=== PATIENT | female | born 1965 | race Caucasian/White ===

== ENCOUNTER → 2023-02-17 11:37 | Outpatient (CLI) | payer MEDICAID, SELFPAY ==
[2023-02-17 18:47] LABS: Basophils # 0.1 K/mm3 (0-0.2); Basophils % 1.1 % (0.1-2.0); Eosinophils # 0.2 K/mm3 (0.0-0.4); Hematocrit 53.1 % (37.0-47.0); Hemoglobin 16.6 g/dL (12.2-16.2); Lymphocytes # 2.2 K/mm3 (0.7-4.5); Lymphocytes % 29.2 % (10-50); Mean Corpuscular HGB Conc 31.2 g/dL (31.8-35.4); Mean Corpuscular Hemoglobin 29.1 pg (27.0-31.2); Mean Corpuscular Volume 93.3 fl (81-99); Mean Platelet Volume 8.7 fl (7.4-10.4); Monocytes # 0.4 K/mm3 (0.1-1.0); Monocytes % 5.2 % (1.7-9.3); Neutrophils # 4.7 K/mm3 (1.8-7.8); Neutrophils % 62.4 % (37.0-80.0); Platelet Count 249 K/mm3 (142-424); Red Blood Count 5.69 M/mm3 (4.20-5.40); Red Cell Distribution Width 13.6 % (11.5-17.5); White Blood Count 7.6 K/mm3 (4.8-10.8)
[2023-02-17 19:07] LABS: Alanine Aminotransferase 23 U/L (12-78); Albumin Level 4.3 g/dl (3.5-5.0); Albumin/Globulin Ratio 1.5 (1.1-1.8); Alkaline Phosphatase 91 U/L (38-126); Aspartate Amino Transferase 35 U/L (14-36); Bilirubin,Total 0.6 mg/dl (0.2-1.3); Blood Urea Nitrogen 4 mg/dl (7-17); Calcium 9.1 mg/dl (8.4-10.2); Carbon Dioxide 31 mmol/L (22.0-30.0); Chloride 99 mmol/L (98-107); Chol/HDL Ratio 3.2 (1-3.5); Cholesterol 218 mg/dl (140-200); Estimated Glomerular Filt Rate 127 ml/min (>60); GFR (African American) 154 ML/MIN (>60); Globulin 2.8 g/dL (1.3-3.2); Glucose 87 mg/dl (74-100); HDL Cholesterol 69 mg/dl (40-60); Sodium 139 mmol/L (136-145); Total Protein,Serum 7.1 g/dl (6.3-8.2); Triglycerides 193 mg/dl (30-150); VLDL Cholesterol 39 mg/dL (0-40)
[2023-02-17 19:18] LABS: Hemoglobin A1C 5.5 % (4.0-6.0)
[2023-02-17 19:19] LABS: Direct LDL Cholesterol 112.36 mg/dL (100-129)
[2023-02-17 19:38] LABS: Thyroid Stimulating Hormone 1.51 uIU/mL (0.465-4.68)
== END ==
PROVIDERS: PCP Nurse Practitioner; Visit Provider Nurse Practitioner
DX: R07.9 Chest pain, unspecified (principal); R55 Syncope and collapse; R00.2 Palpitations; I34.1 Nonrheumatic mitral (valve) prolapse; Z13.1 Encounter for screening for diabetes mellitus; Z13.220 Encounter for screening for lipoid disorders; Z79.899 Other long term (current) drug therapy
CPT/HCPCS: 80053; 80061; 83036; 84443; 85025

== ENCOUNTER → 2023-02-24 09:57 | Outpatient (CLI) | payer MEDICAID, SELFPAY ==
--- NOTE | 2023-02-24 10:03 | XR_ITS ---
FINAL REPORT CLINICAL HISTORY: left sided chest pain, palpitation, pre-syncope, MVP, soa FINDINGS: TWO VIEW CHEST The heart size is normal. The mediastinum is normal. The lungs are clear. There is no pneumothorax. IMPRESSION: No acute cardiopulmonary process. Reviewed, Interpreted and Dictated by Alexander Catherine MD Transcribed by Anselmo Herring Authenticated and [facility]
--- NOTE | 2023-02-24 10:31 | ECG_ITS ---
APPROVED REPORT Exam: Resting ECG HR:79 bpm ECG Measurements Heart Rate 79 AXES AL 132 P 70 QRSd 110 QRS 17 QT 394 T 61 QTc 428 Conclusion SINUS RHYTHM INCOMPLETE RIGHT BUNDLE BRANCH BLOCK [90+ ms QRS DURATION, TERMINAL R IN V1/V2, 40+ ms S IN I/aVL/V4/V5/V6] BORDERLINE ECG UNCONFIRMED REPORT Electronically signed by : Rajinder Amor MD 02/24/2023 20:06:56
== END ==
PROVIDERS: PCP Nurse Practitioner; Visit Provider Nurse Practitioner
DX: R07.9 Chest pain, unspecified (principal); R00.2 Palpitations; R55 Syncope and collapse; I34.1 Nonrheumatic mitral (valve) prolapse
CPT/HCPCS: 71046; 93005; 93225; 93226

== ENCOUNTER → 2023-03-15 07:19 | Outpatient (CLI) | payer MEDICAID, SELFPAY ==
--- NOTE | 2023-03-15 | CA_ITS ---
APPROVED REPORT Exam: Pharmacologic Technologist: Chely Gr, Ht: 5 ft 3 in Wt: 150 lbs BSA: 1.71 m2 HR: 89 bpm BP: 134/85 mmHg Rhythm: NSR Medical History Medical History: Smoking Medications: Omeprazole,,,,, Albuterol,,,,, Prednisone,,,,, Levoflaxacin,,,,, BREztri aeroshpere,,,,, Allergies: No known drug allergies Cardiac Risk Factors: FHX of CAD, Smoking Stress Test Details Test: LEXISCAN HR Resting HR: 87 bpm Max Heart Rate (APMHR): 163 bpm Max HR Achieved: 111 bpm Target HR (85% APMHR): 139 bpm % of APMHR: 68 Recovery HR: 91 bpm BP Resting BP: 134/85 mmHg Max BP: 134/85 mmHg Recovery BP: 110.0/76.0 mmHg ECG Resting ECG: NSR, minimal ST depression in inferior leads, non-specific T-wave changes in inferior leads Stress ECG: No change Arrhythmia: Occasional PVCs Recovery ECG: No change Recovery Arrhythmia: None Clinical Exercise duration: 04:01 min Highest Stage Achieved: Exercise capacity: 1.0 METs Stress ECG Conclusion PT HAD DYSPNEA PVCS NO SIGNIFICANT ST CHANGES WITH STRESS CONCLUSION NON DIAGNOSTIC ECG STRESS TEST DUE TO BASELINE ABNORMALITIES MYOVIEW IMAGING IS REPORTED SEPARATELY Test Summary REST 02:15 . . 87 . 134/ 85 . . Stage 1 . . . . . . . Myoview Injected Stage 1 01:00 . . 106 . . . . Stage 2 01:00 . . 107 . . . . Stage 3 01:00 . . 100 . 128/ 74 . . Stage 4 01:00 . . 93 . 112/ 86 . . Stage 4 01:01 . . 93 . 112/ 86 . Stop exercise at 04:01 RECOVERY 01:00 . . 95 . . . . RECOVERY 02:00 . . 93 . . . . RECOVERY 03:00 . . 93 . . . . RECOVERY 04:00 . . 93 . 125/ 82 . . RECOVERY 05:00 . . 90 . 125/ 82 . . RECOVERY 05:12 . . 92 . 110/ 76 . . Electronically signed by : Candi Gallagher, 03/19/2023 15:39:30
--- NOTE | 2023-03-15 07:19 | NM_ITS ---
APPROVED REPORT Exam: Nuclear Stress Test Indication: VALVULAR DISEASE, TOB USE, FM HX, C.P., SOB, PALPITATIONS, SYNCOPE, FATIGUE, ABN ECHO Patient Location: Outpatient Stress Tech: Chely Gr MI Tech:Tracy Banksser, ARRT RT (R)(N)(M) Ht: 5 ft 4 in Wt: 150 lbs Bra Size: C HR: 89 bpm BP: 134/85 mmHg BSA: 1.73 m2 Rhythm: NSR TID: 1.12 BMI: 25.7 History: VALVULAR DISEASE, TOB USE, FM HX, C.P., SOB, PALPITATIONS, SYNCOPE, FATIGUE, ABN ECHO Procedure: Patient received 0.4 mg of intravenous Lexiscan, resting heart rate 89 bpm, resting blood pressure 134/85 mmHg, with Lexiscan maximum heart rate achieved was 105 bpm which is % of the maximum predicted heart rate and blood pressure was 128/74 mmHg. With Lexiscan, patient denied any complaint of chest pain. Cardiac Stress and Resting SPECT Images: Cardiac Stress and Resting SPECT images were obtained using technetium 99m Myoview 31.3 mCi stress and 10.33 mCi at rest. Resting and stress imaging in supine and prone positions demonstrate no fixed or reversible perfusion defects. Gated imaging demonstrates normal global and regional LV systolic function. LVEF is calculated at 60%. Conclusion: No fixed or reversible perfusion defects. Gated imaging demonstrates normal global and regional LV systolic function. LVEF is calculated at 60%. Electronically signed by : Candi Gallagher, 03/19/2023 15:41:49
== END ==
PROVIDERS: PCP Nurse Practitioner; Visit Provider Nurse Practitioner
DX: I34.1 Nonrheumatic mitral (valve) prolapse (principal); R07.9 Chest pain, unspecified; R00.2 Palpitations; R55 Syncope and collapse
CPT/HCPCS: 78452; 93017; A9502; J2785

== ENCOUNTER → 2023-03-22 14:43 | Outpatient (CLI) | payer MEDICAID, SELFPAY | PROVIDERS: PCP Nurse Practitioner; Visit Provider Nurse Practitioner | DX: R42 Dizziness and giddiness (principal) ==

== ENCOUNTER 2023-03-22 18:36 | Inpatient (IN) | payer MEDICAID, SELFPAY ==
[2023-03-22] VITALS (14 sets, daily range): BP systolic 100–136; BP diastolic 63–83; PULSE 84–111; RESP 16–22; TEMP 36.7–37.1; O2SAT 84–99; BMI 25.7; BMI 25.6; BMI 26.9
--- NOTE | 2023-03-22 18:24 | ECG_ITS ---
APPROVED REPORT Exam: Resting ECG HR:97 bpm ECG Measurements Heart Rate 97 AXES OK 128 P 41 QRSd 109 QRS 12 QT 372 T 47 QTc 427 Conclusion SINUS RHYTHM POSSIBLE RIGHT VENTRICULAR CONDUCTION DELAY [RSR (QR) IN V1/V2] BORDERLINE ECG UNCONFIRMED REPORT Electronically signed by : Rajinder Amor MD 03/23/2023 21:18:42
--- NOTE | 2023-03-22 18:33 | PC.NURSE ---
ER AT BEDSIDE
--- NOTE | 2023-03-22 18:35 | XR_ITS ---
PROCEDURE INFORMATION: Exam: XR Chest Exam date and time: 03/22/2023 6:36 PM Age: 57 years old Clinical indication: Shortness of breath; Additional info: SOB TECHNIQUE: Imaging protocol: Radiologic exam of the chest. Views: 1 view. COMPARISON: CR XR CHEST 2V 02/24/2023 10:04 AM FINDINGS: Lungs: Subtle interstitial haziness could reflect interstitial pneumonia. No consolidation. Granulomatous changes. Pleural spaces: Unremarkable. No pleural effusion. No pneumothorax. Heart/Mediastinum: Unremarkable. No cardiomegaly. Bones/joints: Unremarkable. IMPRESSION: Subtle interstitial haziness could reflect interstitial pneumonia. Correlate clinically.
--- NOTE | 2023-03-22 18:37 | PC.NURSE ---
PT PLACED ON 3 L NC, FOR ROOM AIR SAT OF 84, AWARE
--- NOTE | 2023-03-22 18:38 | PC.NURSE ---
respiratory notified about continuous albuterol.
--- NOTE | 2023-03-22 18:40 | HMH.EDGENADL ---
Discharge Plan Disposition Patient Disposition: Admitted Condition: Serious Chief Complaint: Shortness of Breath/Dyspnea Prescriptions Prescriptions: No Action omeprazole 40 mg capsule,delayed release(DR/EC) 40 mg PO DAILY Qty: 30 2RF sulfamethoxazole-trimethoprim [Bactrim DS] 800-160 mg tablet 1 tab PO BID Qty: 20 0RF (DME) nebulizers Misc See Rx Instructions .MEDSUPPLY Qty: 1 0RF Rx Instructions: As directed (DME) nebulizer accessories Kit See Rx Instructions .MEDSUPPLY Qty: 1 0RF Rx Instructions: As directed ipratropium-albuterol 0.5 mg-3 mg(2.5 mg base)/3 mL solution for nebulization 3 ml inhalation QID Qty: 360 2RF Trelegy Ellipta 100-62.5-25 mcg blister with device 1 inh inhalation DAILY Qty: 60 2RF albuterol sulfate [Ventolin HFA] 90 mcg/actuation HFA aerosol inhaler See Rx Instructions .ROUTE .COMPLEX Qty: 18 0RF Dose Instruction: INHALE 2 PUFFS INTO THE LUNGS EVERY 4-6 HOURS NEEDED FOR SHORTNESS OF BREATH OR WHEEZING Rx Instructions: INHALE 2 PUFFS INTO THE LUNGS EVERY 4-6 HOURS NEEDED FOR SHORTNESS OF BREATH OR WHEEZING Clinical Impressions Clinical Impression: Asthma exacerbation in COPD, ACS (acute coronary syndrome) Discharge ED Provider: Jhonathan Crsos General Adult HPI General Chief complaint: Shortness of Breath/Dyspnea Stated complaint: SOA Time Seen by Provider: 03/22/23 18:40 History of Present Illness HPI narrative: Patient is a 57-year-old female with past medical history of COPD on controlled medication not on home oxygen who presents emergency department for evaluation of shortness of breath. Patient states that she has had progressive shortness of breath over the last month however over the last 48 hours she has not particularly noticed worsening shortness of breath. She went to her family doctor today who prescribed her a nebulizer machine and she was unable to hook it up with progressive shortness of breath and anxiety causing her to have a episode of hyperventilation with syncope on her couch. Not on was subsequently called. In route patient was given aspirin, nitroglycerin, 2 DuoNebs, on 3 to 4 L nasal cannula to maintain oxygen saturations greater than 90% was transported here for continued evaluation. Upon arrival patient states that she had previous chest pain when she was feeling really anxious, has minimal chest pain currently. No other acute complaints at this time. Related Data Previous Rx's Medication Instructions Recorded omeprazole 40 mg capsule,delayed 40 mg PO DAILY #30 caps 02/17/23 release albuterol sulfate 90 mcg/actuation See Rx Instructions .Route 03/17/23 aerosol inhaler (Ventolin HFA) .COMPLEX #18 grams fluticasone fur. 100 mcg-umeclid 1 inh inhalation DAILY #60 ea 03/22/23 62.5 mcg-vilant 25 mcg inhalat.powder (Trelegy Ellipta) ipratropium 0.5 mg-albuterol 3 mg 3 ml inhalation QID #360 mL 03/22/23 (2.5 mg base)/3 mL nebulization soln nebulizer accessories #1 ea 03/22/23 nebulizers #1 ea 03/22/23 sulfamethoxazole 800 1 tab PO BID #20 tabs 03/22/23 mg-trimethoprim 160 mg tablet (Bactrim DS) Allergies Allergy/AdvReac Type Severity Reaction Status Date / Time No Known Allergies Allergy Verified 03/22/23 13:59 [facility] Disclaimer: The information contained in this section may have been updated after the patient was seen, as this information can be updated by other users. Medical History (Updated 03/22/23 @ 20:58 by Jhonathan Cross MD) Chest pain COPD exacerbation Family history of seizure in brother GERD (gastroesophageal reflux disease) Impetigo Murmur MVP (mitral valve prolapse) Palpitation Pre-syncope Screening for diabetes mellitus Screening, lipid Social History Smoking Status: Current every day smoker alcohol intake: never substance use type: denies use current occupational status:
--- NOTE | 2023-03-22 18:40 | PC.NURSE ---
1 SET OF BLOOD CULTURES IN LAB. SIRENA ARAIZA.
[2023-03-22 18:48] LABS: Basophils # 0.1 K/mm3 (0-0.2); Basophils % 1.5 % (0.1-2.0); Eosinophils # 0.2 K/mm3 (0.0-0.4); Eosinophils % 2.8 % (0.1-12.0); Hematocrit 45.1 % (37.0-47.0); Hemoglobin 14.4 g/dL (12.2-16.2); Lymphocytes # 2.3 K/mm3 (0.7-4.5); Lymphocytes % 41.2 % (10-50); Mean Corpuscular Hemoglobin 29.3 pg (27.0-31.2); Mean Corpuscular Volume 91.5 fl (81-99); Mean Platelet Volume 7.4 fl (7.4-10.4); Monocytes # 0.3 K/mm3 (0.1-1.0); Monocytes % 4.9 % (1.7-9.3); Neutrophils # 2.7 K/mm3 (1.8-7.8); Neutrophils % 49.7 % (37.0-80.0); Platelet Count 248 K/mm3 (142-424); Red Blood Count 4.93 M/mm3 (4.20-5.40); Red Cell Distribution Width 13.9 % (11.5-17.5); White Blood Count 5.5 K/mm3 (4.8-10.8)
[2023-03-22 18:55] LABS: Alanine Aminotransferase 20 U/L (12-78); Albumin Level 4.4 g/dl (3.5-5.0); Albumin/Globulin Ratio 1.5 (1.1-1.8); Alkaline Phosphatase 82 U/L (38-126); Anion Gap 11.9 mEq/L (5-15); Aspartate Amino Transferase 31 U/L (14-36); Bilirubin,Total 0.2 mg/dl (0.2-1.3); Blood Urea Nitrogen 4 mg/dl (7-17); Calcium 8.6 mg/dl (8.4-10.2); Carbon Dioxide 24 mmol/L (22.0-30.0); Chloride 103 mmol/L (98-107); Creatinine Clearance Estimated 133 mL/min (50-200); Estimated Glomerular Filt Rate 127 ml/min (>60); GFR (African American) 154 ML/MIN (>60); Globulin 2.9 g/dL (1.3-3.2); Glucose 104 mg/dl (74-100); Potassium 3.9 mmoL/L (3.5-5.1); Sodium 135 mmol/L (136-145); Total Protein,Serum 7.3 g/dl (6.3-8.2)
[2023-03-22 19:00] LABS: Basophils # 0.1 K/mm3 (0-0.2); Basophils % 1.9 % (0.1-2.0); Eosinophils # 0.2 K/mm3 (0.0-0.4); Eosinophils % 3.3 % (0.1-12.0); Hematocrit 47.7 % (37.0-47.0); Hemoglobin 15.3 g/dL (12.2-16.2); Lymphocytes # 1.7 K/mm3 (0.7-4.5); Lymphocytes % 35.6 % (10-50); Mean Corpuscular HGB Conc 32.1 g/dL (31.8-35.4); Mean Corpuscular Hemoglobin 29.9 pg (27.0-31.2); Mean Corpuscular Volume 93.3 fl (81-99); Monocytes # 0.3 K/mm3 (0.1-1.0); Monocytes % 5.9 % (1.7-9.3); Neutrophils # 2.6 K/mm3 (1.8-7.8); Neutrophils % 53.4 % (37.0-80.0); Platelet Count 269 K/mm3 (142-424); Red Blood Count 5.11 M/mm3 (4.20-5.40); Red Cell Distribution Width 13.9 % (11.5-17.5); White Blood Count 4.8 K/mm3 (4.8-10.8)
--- NOTE | 2023-03-22 19:01 | PC.NURSE ---
Report given to warehouse worker 2nd shift
[2023-03-22 19:05] LABS: Alanine Aminotransferase 21 U/L (12-78); Albumin Level 4.6 g/dl (3.5-5.0); Albumin/Globulin Ratio 1.7 (1.1-1.8); Alkaline Phosphatase 83 U/L (38-126); Anion Gap 13.9 mEq/L (5-15); Aspartate Amino Transferase 30 U/L (14-36); Bilirubin,Total 0.3 mg/dl (0.2-1.3); Blood Urea Nitrogen 4 mg/dl (7-17); Calcium 8.9 mg/dl (8.4-10.2); Carbon Dioxide 26 mmol/L (22.0-30.0); Chloride 103 mmol/L (98-107); Creatinine Clearance Estimated 133 mL/min (50-200); Estimated Glomerular Filt Rate 127 ml/min (>60); GFR (African American) 154 ML/MIN (>60); Globulin 2.7 g/dL (1.3-3.2); Glucose 82 mg/dl (74-100); Potassium 4.9 mmoL/L (3.5-5.1); Sodium 138 mmol/L (136-145); Total Protein,Serum 7.3 g/dl (6.3-8.2)
[2023-03-22 19:05] LABS: NT Pro Brain Natriuretic Pep. 993 pg/mL (0-125)
[2023-03-22 19:06] LABS: VBG Base Excess -2.4 mmol/L (-2.4-2.3); VBG Oxygen Saturation 89.6 % (50-70); VBG PH 7.43 mmol/L (7.31-7.41); VBG PO2 52.9 mmol/L (28-40)
[2023-03-22 19:07] LABS: Troponin I 0.12 ng/ml (0.00-0.034)
[2023-03-22 19:11] LABS: Coronavirus 19, PCR Not Detected (NotDetected); Influenza A, PCR Not Detected (NotDetected); Influenza B, PCR Not Detected (NotDetected)
--- NOTE | 2023-03-22 19:21 | PC.NURSE ---
Dr Dillard paged
--- NOTE | 2023-03-22 19:21 | PC.NURSE ---
Dr Cross speaking with Dr Dillard
--- NOTE | 2023-03-22 19:29 | CT_ITS ---
PROCEDURE INFORMATION: Exam: CTA Chest Without And With Contrast Exam date and time: 03/22/2023 8:00 PM Age: 57 years old Clinical indication: Pain; Chest pressure; Additional info: Chest pain TECHNIQUE: Imaging protocol: Computed tomographic angiography of the chest without and with contrast. Exam focused on the arteries. 3D rendering (Not supervised by radiologist): MIP and/or 3D reconstructed images were created by the technologist. Radiation optimization: All CT scans at this facility use at least one of these dose optimization techniques: automated exposure control; mA and/or kV adjustment per patient size (includes targeted exams where dose is matched to clinical indication); or iterative reconstruction. Contrast material: ISOVUE 370; Contrast volume: 70 ml; Contrast route: INTRAVENOUS (IV); REPORTING DATA: Count of CT and Cardiac NM exams in prior 12 months: This patient has received 0 known CTs and 0 known cardiac nuclear medicine studies in the 12 months prior to the current study. COMPARISON: CR XR CHEST PORTABLE 03/22/2023 6:36 PM FINDINGS: Pulmonary arteries: Normal. No pulmonary emboli. Aorta: 4.1 cm ascending aortic aneurysm without rupture or dissection. Lungs: Scattered atelectasis bilaterally. No pneumonia. Partially calcified pulmonary nodules bilaterally reflecting granulomatous change. Pleural spaces: Unremarkable. No pneumothorax. No pleural effusion. Heart: Unremarkable. No cardiomegaly. No pericardial effusion. Lymph nodes: Unremarkable. No enlarged lymph nodes. Bones/joints: Unremarkable. No acute fracture. Soft tissues: Unremarkable. IMPRESSION: No acute findings.
--- NOTE | 2023-03-22 19:36 | PC.NURSE ---
updated patient on plan of care. patient agreeable.
--- NOTE | 2023-03-22 20:15 | PC.NURSE ---
Dr Cross spoke to Dr Dillard, pt to being cathed toneryn
--- NOTE | 2023-03-22 20:25 | PC.NURSE ---
pt room assignment for second floor 213
--- NOTE | 2023-03-22 20:30 | PC.NURSE ---
laborer pipelines team called in.
--- NOTE | 2023-03-22 20:43 | IR_ITS ---
APPROVED REPORT Patient Location: [facility] [employer] Logistics Manager: CARLOS Jones RT (R) PROCEDURES Selective coronary angiogram Intravascular lithotripsy to the right coronary Drug-eluting stent deployment to the proximal mid and distal dominant right coronary in a contiguous manner INDICATION Acute non-ST elevation myocardial infarction, Coronary artery disease, Extensive coronary artery calcification failing to reduce with high-pressure noncompliant balloon Informed consent was obtained prior to the procedure. COMPLICATIONS None Estimated Blood Loss: Less than 10 ML TECHNIQUE One percent lidocaine used to anesthetize the right anterior aspect of the wrist. The right radial artery was accessed via the Seldinger technique. A 6 Polish sheath was placed in the right radial artery. 150 mg magnesium sulfate, 800 mcg of nitroglycerin, 1mg Lidocaine and 5000 U Heparin were given through the arterial sheath. The papa catheter was also used to perform selective coronary angiography. At the end of the diagnostic angiogram therapeutic heparin was administered given therapeutic ACT and the guide catheter was placed in the right coronary followed by Choice PT extra-support wire. A 2.5 x 26 mm [employer] frontier stent was deployed at 20 ghassan reducing the stenosis. There were additional calcifications distally therefore a 3 mm x 38 mm [employer] frontier stent was placed distal to the for stent yet still overlapping and deployed at 18 ghassan. An edge stenosis was still identified therefore a 2.5 x 12 mm [employer] frontier stent was placed distally and deployed at 18 ghassan. The balloon was brought back and deployed at 24 ghassan to post dilate. Each time the catheter went into the right coronary artery significant dampening occurred. Because of this a 3 mm x 18 mm [employer] frontier stent was placed proximal to the 2.5 mm stent and deployed at 24 ghassan. The balloon was advanced and deployed at 24 ghassan in a calcified area which failed to reduce. An additional 3.25 x 12 mm noncompliant balloon was deployed at 20 ghassan which failed to reduce the stenosis. At this point a 3.5 x 12 mm shockwave balloon was advanced and 80 pulsations were delivered at 4 ghassan. 3.5 x 12 mm noncompliant balloon was then deployed at 24 ghassan also failing to reduce the lesion to 0%. At the end of the procedure there were excellent angiograph results with LISY-3 flow being present and a 10% residual calcified stenosis. The apparatus was removed the sheath was removed and hemostasis was achieved using TR banding patient was transferred to the postop putting in stable condition ANGIOGRAPHIC RESULTS The left main artery Short and normal The left anterior descending artery Has a proximal calcified eccentric 20% stenosis with mild diffuse 10% luminal regularities The circumflex artery Nondominant yet still large and has a 10% proximal stenosis The right coronary artery Is a dominant vessel and has a calcified 70 to 80% concentric stenosis with additional long 50% calcified stenoses throughout the mid segment. The ROSEN ventriculogram reveals Not performed The left ventricular end-diastolic pressure Not measured IMPRESSION Severe proximal dominant right coronary artery disease as described above Successful intravascular lithotripsy followed by KARINA placement throughout the right coronary artery reducing the stenosis to less than 10% and giving LISY-3 inline flow PLAN 1. Plavix 75 daily plus aspirin 81 mg daily 2. LDL less than 55 to be achieved with high intensity statin 3. Avoidance of tobacco products 4. Risk factor modification 5. Cardiac rehabilitation 6. Treatment of underlying COPD Electronically signed by : Neil Dillard MD 03/22/2023 22:09:37
--- NOTE | 2023-03-22 20:49 | PC.NURSE ---
zoll pads in place
--- NOTE | 2023-03-22 20:52 | PC.NURSE ---
physician wants azithromycin after cath
--- NOTE | 2023-03-22 21:10 | PC.NURSE ---
Report given to Jennifer Zhou in school laboratory technician
[2023-03-22 22:34] LABS: CATHL Activated Clotting Time 314 SEC (74-125)
--- NOTE | 2023-03-22 22:38 | PC.NURSE ---
pt arrived to floor from optical laboratory manager at this time
[2023-03-23] VITALS (13 sets, daily range): BP systolic 90–109; BP diastolic 55–70; PULSE 88–101; RESP 16–18; TEMP 36.7–36.9; O2SAT 90–99; BMI 26.9
[2023-03-23 00:02] LABS: Troponin I 0.09 ng/ml (0.00-0.034)
[2023-03-23 00:50] LABS: Troponin I 0.09 ng/ml (0.00-0.034)
--- NOTE | 2023-03-23 04:01 | PC.NURSE ---
Fresh skin tear to L hand noted by DOCKETING SPECIALIST. Area cleansed and foam dressing applied.
--- NOTE | 2023-03-23 05:13 | PC.NURSE ---
Radial band removed, dry dressing applied.
[2023-03-23 06:48] LABS: Basophils % 0.3 % (0.1-2.0); Eosinophils % 0.4 % (0.1-12.0); Hemoglobin 14.1 g/dL (12.2-16.2); Lymphocytes # 0.4 K/mm3 (0.7-4.5); Lymphocytes % 8.1 % (10-50); Mean Corpuscular HGB Conc 31.4 g/dL (31.8-35.4); Mean Corpuscular Hemoglobin 29.5 pg (27.0-31.2); Mean Corpuscular Volume 94.1 fl (81-99); Mean Platelet Volume 7.9 fl (7.4-10.4); Monocytes # 0.1 K/mm3 (0.1-1.0); Neutrophils # 4.3 K/mm3 (1.8-7.8); Neutrophils % 89.2 % (37.0-80.0); Platelet Count 247 K/mm3 (142-424); Red Blood Count 4.78 M/mm3 (4.20-5.40); Red Cell Distribution Width 13.9 % (11.5-17.5); White Blood Count 4.9 K/mm3 (4.8-10.8)
[2023-03-23 06:49] LABS: MANUAL DIFFERENTIAL MANUAL DIFFERENTIAL (MANUAL DIFF)
[2023-03-23 06:57] LABS: Blood Urea Nitrogen 6 mg/dl (7-17); Calcium 8.2 mg/dl (8.4-10.2); Carbon Dioxide 23 mmol/L (22.0-30.0); Chloride 103 mmol/L (98-107); Creatinine Clearance Estimated 140 mL/min (50-200); Estimated Glomerular Filt Rate 127 ml/min (>60); GFR (African American) 154 ML/MIN (>60); Glucose 275 mg/dl (74-100); Sodium 136 mmol/L (136-145)
[2023-03-23 07:21] LABS: Lymphocytes % 7 % (10-50); Monocytes % 2 % (2-9); Neutrophils % 91 % (42-76); Platelet Estimate Normal; RBC Morphology Normal; Total Cells Counted 100
--- NOTE | 2023-03-23 07:47 | HMH.PHAINT1 ---
Pharmacy Intervention Comments: Patient's home medications reviewed and verified using external history resource and discussing with patient.
--- NOTE | 2023-03-23 08:34 | CA_ITS ---
FINAL REPORT TECHNIQUE: Kim scale, color and spectral doppler images of the bilateral carotid arteries were obtained. CLINICAL HISTORY: carotid bruits COMPARISON: None FINDINGS: Peak systolic velocity in the right internal carotid artery is 48.2 cm/sec. The internal carotid to common carotid artery ratio is 0.78. There is no significant carotid artery stenosis and no significant plaque formation. The right vertebral artery is normal in direction. Peak systolic velocity in the left internal carotid artery is 82.2 cm/sec. The internal carotid to common carotid artery ratio is 1.03. There is no significant carotid artery stenosis and no significant plaque formation. The left vertebral artery is normal in direction. IMPRESSION: No ultrasound evidence of hemodynamically significant carotid artery stenosis. Normal peak systolic velocities and normal internal to common carotid artery ratios bilaterally. Reviewed, Interpreted and Dictated by Coleen Kerr MD Transcribed by Florence Martinez Authenticated and [facility]
--- NOTE | 2023-03-23 08:36 | EXP.CARD.CON ---
History of Present Illness History of Present Illness Consult date: 03/23/23 Requesting physician: Sergio Frazier Consult reason: chest pain Chief complaint: chest pain Additional Medical History:: 1. Tobacco use A. COPD B. Chest CTA, 03/22/2023, no acute findings, 4.1 ascending aortic aneurysm noted 2. Reported history of mitral valve prolapse 3. History of GERD 4. History of palpitations A. Holter monitor, 02/2023, sinus rhythm with PACs 5. Non-ST elevation HI, 03/22/2023 A. LHC, 03/23/2023, 4 KARINA to RCA, remaining mild disease of LAD and circumflex arteries. History of present illness: Patient is a 57-year-old female with past medical history of COPD on controlled medication not on home oxygen who presents emergency department for evaluation of shortness of breath. Patient states that she has had progressive shortness of breath over the last month however over the last 48 hours she has not particularly noticed worsening shortness of breath. She went to her family doctor today who prescribed her a nebulizer machine and she was unable to hook it up with progressive shortness of breath and anxiety causing her to have a episode of hyperventilation with syncope on her couch. 911 was subsequently called. In route patient was given aspirin, nitroglycerin, 2 DuoNebs, on 3 to 4 L nasal cannula to maintain oxygen saturations greater than 90% was transported here for continued evaluation. Upon arrival patient states that she had previous chest pain when she was feeling really anxious, has minimal chest pain currently. No other acute complaints at this time. In summary patient is a 57-year-old female with past medical history described above who presents emergency department for evaluation of shortness of breath. Patient is hemodynamically stable nontoxic-appearing upon arrival, afebrile, saturating greater than 90% on 4 L nasal cannula. Patient has severely decreased breath sounds bilaterally. Differential diagnosis includes COPD exacerbation, pneumonia, ACS, among others. Work-up will be conducted with hematologic labs, chest x-ray, EKG, serial troponins. Initial interventions include DuoNeb, methylprednisolone, ceftriaxone, azithromycin. Initial work-up reviewed by me, hematologic labs remarkable for elevated troponin, compensated acid-base status, remainder of hematologic labs are nonactionable. Given elevated troponin with nonspecific T wave changes in the inferior leads Case was discussed with cardiology who recommends emergent CT PE and a single dose of Lovenox in the interim. CT PE negative for acute thromboembolism, incidental 4.1 cm ascending aortic aneurysm. Given this the case was subsequently discussed with cardiology who will take the patient to the Ux Developer Designer for definitive evaluation at this time given elevated troponin and normal creatinine. Patient was admitted in stable condition. The above per SIRENA Romo MD. Patient confirms events as noted above. Patient did have cardiac catheterization with subsequent multiple stents placed to the right coronary artery with mild disease noted of the LAD and circumflex. Patient has done well overnight with no further chest pain. She is anxious to go home if possible. Telemetry shows sinus rhythm with no arrhythmias. Past medical history pertinent for longtime tobacco use. She does relate a history of mitral valve prolapse but no recent echocardiogram. Recent Holter monitor obtained for palpitations showed PACs only. [facility] Disclaimer: The information contained in this section may have been updated after the patient was seen, as this information can be updated by other users. Medical History (Updated 03/23/23 @ 10:41 by CHARISSA Somers) Chest pain COPD exacerbation Family history of seizure in brother GERD (gastroesophageal reflux disease) Impetigo Murmur MVP (mitral valve prolapse) Palpitation Pre-syncope Screening for diabetes mellitus Screening, lipid Social History (Reviewed
--- NOTE | 2023-03-23 11:28 | PC.NURSE ---
courtesy tech round: pt states she is going to take a nap. pt states she will take a shower once her daughter gets here with her clothes. call light is at BS.
--- NOTE | 2023-03-23 12:20 | PC.NURSE ---
Healthcare called for pt. health history and report. At this time still awaiting a bed at .
--- NOTE | 2023-03-23 14:45 | EXP.DC.SUM ---
General Admission date:: 03/22/23 Discharge date: 03/23/23 Hospital Course Hospital Course Hospital Course: 57 year old female with a past medical history of COPD, GERD, tobacco use, reported history of mitral valve prolapse, presented to the with chest pain and shortness of breath via EMS. En route the patient was given aspirin, nitroglycerin, 2 duonebs and was on 3-4 L NC to maintain oxygen saturations gerater than 90%. Initial workup revealed elevated troponin level with nonspecific t wave changes in the inferior leads; Cardiology recommended CT PE and a single dose of Lovenox. CT PE was negative for acute thromboembolism; incidental 4.1cm ascending aortic aneurysm was found. Cardiology took the patient to manager labor delivery and placed4 KARINA to RCA; mild disease noted of the LAD and circumflex. Echocardiogram revealed severe aortic stenosis, final report is pending. The patient will be transferring to for possible valvuloplasty. #severe aortic stenosis #NSTEMI #4.1cm ascending aortic aneurysm, chest cta, 03/22/23 #pulmonary nodules bilaterally noted on chest cta 03/22/23 likely reflecting granulomatous changes Exam Data for Last 24 hours Vital signs and Labs for Last 24 Hours: Temp Pulse Resp BP Pulse Ox O2 Del Method O2 Flow Rate 98.1 F 98 H 16 109/70 L 99 Room Air 3 03/23/23 10:58 03/23/23 10:58 03/23/23 10:58 03/23/23 10:58 03/23/23 10:58 03/23/23 13:00 03/23/23 07:16 Laboratory Results - last 24 hr 03/22/23 14:43: WBC 4.8, RBC 5.11, Hgb 15.3, Hct 47.7 H, MCV 93.3, MCH 29.9, MCHC 32.1, RDW 13.9, Plt Count 269, MPV 8.0, Neut % (Auto) 53.4, Lymph % (Auto) 35.6, [place] % (Auto) 5.9, Eos % (Auto) 3.3, Baso % (Auto) 1.9, Neut # (Auto) 2.6, Lymph # (Auto) 1.7, [place] # (Auto) 0.3, Eos # (Auto) 0.2, Baso # (Auto) 0.1, Sodium 138, Potassium 4.9, Chloride 103, Carbon Dioxide 26, Anion Gap 13.9, BUN 4 L, Creatinine 0.50 L, Estimated Creat Clear 133, Estimated GFR 127, Est GFR ( Amer) 154, Glucose 82, Calcium 8.9, Total Bilirubin 0.3, AST 30, ALT 21, Alkaline Phosphatase 83, Total Protein 7.3, Albumin 4.6, Globulin 2.7, Albumin/Globulin Ratio 1.7 03/22/23 18:30: WBC 5.5, RBC 4.93, Hgb 14.4, Hct 45.1, MCV 91.5, MCH 29.3, MCHC 32.0, RDW 13.9, Plt Count 248, MPV 7.4, Neut % (Auto) 49.7, Lymph % (Auto) 41.2, [place] % (Auto) 4.9, Eos % (Auto) 2.8, Baso % (Auto) 1.5, Neut # (Auto) 2.7, Lymph # (Auto) 2.3, [place] # (Auto) 0.3, Eos # (Auto) 0.2, Baso # (Auto) 0.1, Sodium 135 L, Potassium 3.9 D, Chloride 103, Carbon Dioxide 24, Anion Gap 11.9, BUN 4 L, Creatinine 0.50 L, Estimated Creat Clear 133, Estimated GFR 127, Est GFR ( Amer) 154, Glucose 104 H D, Lactate 2.0, Calcium 8.6, Total Bilirubin 0.2, AST 31, ALT 20, Alkaline Phosphatase 82, Troponin I 0.12 H, NT-Pro-B Natriuret Pep 993 H, Total Protein 7.3, Albumin 4.4, Globulin 2.9, Albumin/Globulin Ratio 1.5 03/22/23 18:36: VBG pH 7.43 H, VBG pCO2 34.0 L, VBG pO2 52.9 H, VBG HCO3 22.0 L, VBG Total CO2 23.0, VBG O2 Saturation 89.6 H, VBG Base Excess -2.4 03/22/23 18:57: SARS-CoV-2 (PCR) Not detected, Influenza A Untype (PCR) Not detected, Influenza Type B (PCR) Not detected 03/22/23 21:36: Activated Clotting Time 314 H* 03/22/23 23:20: Troponin I 0.09 H 03/23/23 00:20: Troponin I 0.09 H 03/23/23 05:35: WBC 4.9, RBC 4.78, Hgb 14.1, Hct 45.0, MCV 94.1, MCH 29.5, MCHC 31.4 L, RDW 13.9, Plt Count 247, MPV 7.9, Neut % (Auto) 89.2 H, Lymph % (Auto) 8.1 L, [place] % (Auto) 2.0, Eos % (Auto) 0.4, Baso % (Auto) 0.3, Neut # (Auto) 4.3, Lymph # (Auto) 0.4 L, [place] # (Auto) 0.1, Eos # (Auto) 0.0, Baso # (Auto) 0.0, Total Counted 100, Neutrophils % (Manual) 91 H, Lymphocytes % (Manual) 7 L, Monocytes % (Manual) 2, Platelet Estimate Normal, RBC Morphology Normal, Sodium 136, Potassium 4.0, Chloride 103, Carbon Dioxide 23, Anion Gap 14.0, BUN 6 L D, Creatinine 0.50 L, Estimated Creat Clear 140, Estimated GFR 127, Est GFR ( Amer) 154, Glucose 275 H D, Calcium 8.2 L I & O for Last 24 hours: Intake & Output
--- NOTE | 2023-03-24 22:44 | EXP.HP ---
History of Present Illness *Admission Date: 03/23/23 *Reason for visit:: chest pain and shortness of breath *History of present illness: 57 year old female with a past medical history of COPD, GERD, tobacco use, reported history of mitral valve prolapse, presented to the with chest pain and shortness of breath via EMS. En route the patient was given aspirin, nitroglycerin, 2 duonebs and was on 3-4 L NC to maintain oxygen saturations gerater than 90%. Initial workup revealed elevated troponin level with nonspecific t wave changes in the inferior leads; Cardiology recommended CT PE and a single dose of Lovenox. CT PE was negative for acute thromboembolism; incidental 4.1cm ascending aortic aneurysm was found. [facility] Disclaimer: The information contained in this section may have been updated after the patient was seen, as this information can be updated by other users. Medical History (Updated 03/23/23 @ 10:41 by CHARISSA Somers) Chest pain COPD exacerbation Family history of seizure in brother GERD (gastroesophageal reflux disease) Impetigo Murmur MVP (mitral valve prolapse) Palpitation Pre-syncope Screening for diabetes mellitus Screening, lipid Social History Smoking Status: Current every day smoker alcohol intake: never substance use type: denies use current occupational status: unemployed Travel in the last 8 weeks: None Review of Systems Review of Systems Review of systems:: pertinent systems reviewed and negative unless documented below *Cardiovascular Cardiovascular: Reports chest pain and Reports dyspnea *Respiratory Respiratory: Reports dyspnea Meds Home Medications and Allergies Home Medications Medication Instructions Recorded Confirmed Type nebulizer accessories #1 ea 03/22/23 03/22/23 Rx nebulizers #1 ea 03/22/23 03/22/23 Rx albuterol sulfate 90 mcg/actuation 2 puff inhalation Q4-6H PRN COPD 03/23/23 03/23/23 History aerosol inhaler (Ventolin HFA) aspirin 81 mg tablet,delayed 81 mg PO DAILY #0 tabs 03/23/23 Rx release atorvastatin 40 mg tablet 40 mg PO HS #0 tabs 03/23/23 Rx clopidogrel 75 mg tablet 75 mg PO DAILY #0 tabs 03/23/23 Rx dextromethorphan-guaifenesin ER 60 1 tab PO Q12H PRN Chest congestion 03/23/23 03/23/23 History mg-1,200 mg tab,extend release,12hr (Mucinex DM) fluticasone fur. 100 mcg-umeclid 1 inh inhalation DAILY Copd 03/23/23 03/23/23 History 62.5 mcg-vilant 25 mcg inhalat.powder (Trelegy Ellipta) ipratropium 0.5 mg-albuterol 3 mg 3 ml inhalation QID COPD 03/23/23 03/23/23 History (2.5 mg base)/3 mL nebulization soln omeprazole 40 mg capsule,delayed 40 mg PO DAILY Acid reflux 03/23/23 03/23/23 History release New Prescriptions to Start Prescriptions: Allergies Allergy/AdvReac Type Severity Reaction Status Date / Time codeine Allergy Verified 03/22/23 22:27 Exam Data for Last 24 hours Vital signs and Labs for Last 24 Hours: Temp Pulse Resp BP Pulse Ox O2 Del Method O2 Flow Rate 98.1 F 100 H 16 109/70 L 99 Room Air 3 03/23/23 10:58 03/23/23 12:02 03/23/23 10:58 03/23/23 10:58 03/23/23 10:58 03/23/23 13:00 03/23/23 07:16 I & O for Last 24 hours: Intake & Output 03/21/23 03/22/23 03/23/23 03/24/23 23:59 23:59 23:59 23:59 Intake Total 300 / 300 Output Total Balance 299 / 299 Weight 71.384 kg 71.668 kg Constitutional Constitutional: no acute distress *Routine HEENT Exam Head: Present normocephalic Eye: Present EOMI and PERRL ENT: Present mucous membranes moist *Routine Neck Exam Neck: Present supple; Absent lymphadenopathy *Routine Respiratory Exam Respiratory: Present CTA bilaterally *Routine Cardiovascular Exam Cardiovascular: Present RRR and murmur (systolic) *Routine Abdominal Exam Abdominal: Present soft and normoactive bowel sounds; Absent tenderness *Routine Rectal Exam Rectal:: deferred *Routin
== END 2023-03-23 15:10 | disposition short-term general hospital (02) | DRG 247 ==
LOC: ER 20:45 → 2ND 20:55
PROVIDERS: Internal Medicine; Nurse Practitioner; Admitting Provider Internal Medicine Adolescent Medicine; Emergency Provider Emergency Medicine; PCP Internal Medicine; Visit Provider Family Medicine
PROC: 027035Z Dilation of Coronary Artery, One Artery with Two Drug-eluting Intraluminal Devices, Percutaneous Approach (ICD-10-PCS; principal; 2023-03-22 21:00)
DX: I21.4 Non-ST elevation (NSTEMI) myocardial infarction (principal); I25.10 Atherosclerotic heart disease of native coronary artery without angina pectoris; R55 Syncope and collapse; K21.9 Gastro-esophageal reflux disease without esophagitis; Z72.0 Tobacco use; I08.0 Rheumatic disorders of both mitral and aortic valves; J44.9 Chronic obstructive pulmonary disease, unspecified; E78.2 Mixed hyperlipidemia
CPT/HCPCS: 0715T; 36415; 71045; 71275; 80048; 80053; 82803; 83605; 83880; 84484; 85007; 85025; 85347; 87636; 92928; 93005; 93041; 93306; 93454; 93880; 99152; 99153; 99291; C1725; C1761; C1769; C1874; C1876; C9600; J0696; J1644; Q9967

== ENCOUNTER → 2023-04-04 10:11 | Outpatient (CLI) | payer MEDICAID, SELFPAY ==
[2023-04-04 18:51] LABS: Basophils # 0.1 K/mm3 (0-0.2); Basophils % 0.6 % (0.1-2.0); Eosinophils # 0.2 K/mm3 (0.0-0.4); Eosinophils % 2.2 % (0.1-12.0); Hematocrit 45.2 % (37.0-47.0); Hemoglobin 14.3 g/dL (12.2-16.2); Lymphocytes # 1.6 K/mm3 (0.7-4.5); Lymphocytes % 15.9 % (10-50); Mean Corpuscular HGB Conc 31.6 g/dL (31.8-35.4); Mean Corpuscular Hemoglobin 29.8 pg (27.0-31.2); Mean Corpuscular Volume 94.5 fl (81-99); Mean Platelet Volume 8.6 fl (7.4-10.4); Monocytes # 0.4 K/mm3 (0.1-1.0); Monocytes % 3.9 % (1.7-9.3); Neutrophils % 77.3 % (37.0-80.0); Platelet Count 302 K/mm3 (142-424); Red Blood Count 4.78 M/mm3 (4.20-5.40); Red Cell Distribution Width 13.7 % (11.5-17.5); White Blood Count 10.3 K/mm3 (4.8-10.8)
[2023-04-04 19:14] LABS: Chloride 98 mmol/L (98-107); Potassium 3.9 mmoL/L (3.5-5.1); Sodium 136 mmol/L (136-145)
[2023-04-04 19:17] LABS: Alanine Aminotransferase 21 U/L (12-78); Albumin/Globulin Ratio 1.4 (1.1-1.8); Alkaline Phosphatase 81 U/L (38-126); Anion Gap 9.9 mEq/L (5-15); Aspartate Amino Transferase 26 U/L (14-36); Bilirubin,Total 0.6 mg/dl (0.2-1.3); Blood Urea Nitrogen 8 mg/dl (7-17); Calcium 9.5 mg/dl (8.4-10.2); Carbon Dioxide 32 mmol/L (22.0-30.0); Estimated Glomerular Filt Rate 127 ml/min (>60); GFR (African American) 154 ML/MIN (>60); Globulin 2.9 g/dL (1.3-3.2); Glucose 152 mg/dl (74-100); Total Protein,Serum 6.9 g/dl (6.3-8.2)
[2023-04-04 19:18] LABS: Magnesium 1.9 mg/dl (1.6-2.3)
== END ==
PROVIDERS: PCP Nurse Practitioner; Visit Provider Nurse Practitioner
DX: I25.10 Atherosclerotic heart disease of native coronary artery without angina pectoris (principal); E83.42 Hypomagnesemia; J44.9 Chronic obstructive pulmonary disease, unspecified; Z95.2 Presence of prosthetic heart valve; Z95.5 Presence of coronary angioplasty implant and graft
CPT/HCPCS: 80053; 83735; 85025

== ENCOUNTER → 2023-04-12 23:19 | Outpatient (CLI) | payer MEDICAID, SELFPAY ==
[2023-04-12 19:31] LABS: Anion Gap 14.7 mEq/L (5-15); Blood Urea Nitrogen 9 mg/dl (7-17); Calcium 9.4 mg/dl (8.4-10.2); Carbon Dioxide 30 mmol/L (22.0-30.0); Chloride 101 mmol/L (98-107); Estimated Glomerular Filt Rate 127 ml/min (>60); GFR (African American) 154 ML/MIN (>60); Glucose 95 mg/dl (74-100); Magnesium 2.1 mg/dl (1.6-2.3); Potassium 4.7 mmoL/L (3.5-5.1); Sodium 141 mmol/L (136-145)
== END ==
PROVIDERS: PCP Family Medicine; Visit Provider Family Medicine
DX: R55 Syncope and collapse (principal); E83.42 Hypomagnesemia; E11.9 Type 2 diabetes mellitus without complications
CPT/HCPCS: 80048; 83735

== ENCOUNTER → 2023-04-13 14:06 | Outpatient (CLI) | payer MEDICAID, SELFPAY | PROVIDERS: PCP Nurse Practitioner; Visit Provider Nurse Practitioner | DX: R55 Syncope and collapse (principal) | CPT/HCPCS: 93225 ==

== ENCOUNTER → 2023-06-28 11:09 | Outpatient (CLI) | payer MEDICAID, SELFPAY ==
[2023-06-28 18:27] LABS: Alanine Aminotransferase 35 U/L (12-78); Albumin Level 4.6 g/dl (3.5-5.0); Albumin/Globulin Ratio 1.6 (1.1-1.8); Alkaline Phosphatase 95 U/L (38-126); Anion Gap 12.1 mEq/L (5-15); Aspartate Amino Transferase 40 U/L (14-36); Bilirubin,Total 0.5 mg/dl (0.2-1.3); Blood Urea Nitrogen 7 mg/dl (7-17); Calcium 9.3 mg/dl (8.4-10.2); Carbon Dioxide 30 mmol/L (22.0-30.0); Chloride 100 mmol/L (98-107); Estimated Glomerular Filt Rate 103 ml/min (>60); GFR (African American) 125 ML/MIN (>60); Globulin 2.9 g/dL (1.3-3.2); Glucose 121 mg/dl (74-100); Potassium 4.1 mmoL/L (3.5-5.1); Sodium 138 mmol/L (136-145); Total Protein,Serum 7.5 g/dl (6.3-8.2)
== END ==
PROVIDERS: PCP Family Medicine; Visit Provider Family Medicine
DX: J44.9 Chronic obstructive pulmonary disease, unspecified (principal); Z72.0 Tobacco use
CPT/HCPCS: 80053

== ENCOUNTER 2023-09-06 10:32 | Outpatient (CLI) | payer MEDICAID, SELFPAY ==
[2023-09-06 18:44] LABS: Adenovirus,PCR Not Detected (NotDetected); Coronavirus 19, PCR Not Detected (NotDetected); Coronavirus 229E Not Detected (NotDetected); Coronavirus NL63 Not Detected (NotDetected); Coronavirus OC43 Not Detected (NotDetected); Coronovirus HKU1,PCR Not Detected (NotDetected); Human Metapneumovirus Not Detected (NotDetected); Influenza A, PCR Not Detected (NotDetected); Influenza AH1, 2009 Not Detected (NotDetected); Influenza AH1, PCR Not Detected (NotDetected); Influenza AH3,PCR Not Detected (NotDetected); Influenza B, PCR Not Detected (NotDetected); Parainfluenza 1, PCR Not Detected (NotDetected); Parainfluenza 2, PCR Not Detected (NotDetected); Parainfluenza 3, PCR Not Detected (NotDetected); Parainfluenza 4, PCR Not Detected (NotDetected); Respiratory Syncytial Virus Not Detected (NotDetected); Rhinovirus/Enterovirus Not Detected (NotDetected)
[2023-09-06 19:16] LABS: Chloride 101 mmol/L (98-107); Potassium 4.5 mmoL/L (3.5-5.1); Sodium 138 mmol/L (136-145)
[2023-09-06 19:19] LABS: Anion Gap 15.5 mEq/L (5-15); Blood Urea Nitrogen 7 mg/dl (7-17); Carbon Dioxide 26 mmol/L (22.0-30.0); Estimated Glomerular Filt Rate 127 ml/min (>60); GFR (African American) 154 ML/MIN (>60); Glucose 126 mg/dl (74-100)
[2023-09-06 20:00] LABS: Basophils # 0.2 K/mm3 (0-0.2); Basophils % 2.8 % (0.1-2.0); Eosinophils # 0.2 K/mm3 (0.0-0.4); Eosinophils % 3.3 % (0.1-12.0); Hematocrit 48.9 % (37.0-47.0); Hemoglobin 15.8 g/dL (12.2-16.2); Lymphocytes # 1.7 K/mm3 (0.7-4.5); Lymphocytes % 25.6 % (10-50); Mean Corpuscular HGB Conc 32.3 g/dL (31.8-35.4); Mean Corpuscular Hemoglobin 30.2 pg (27.0-31.2); Mean Corpuscular Volume 93.6 fl (81-99); Mean Platelet Volume 8.9 fl (7.4-10.4); Monocytes # 0.4 K/mm3 (0.1-1.0); Monocytes % 6.5 % (1.7-9.3); Neutrophils % 61.8 % (37.0-80.0); Platelet Count 272 K/mm3 (142-424); Red Blood Count 5.23 M/mm3 (4.20-5.40); Red Cell Distribution Width 13.8 % (11.5-17.5); White Blood Count 6.5 K/mm3 (4.8-10.8)
== END 2023-09-06 23:59 ==
LOC: LAB.DROPOF 09-07 10:32
PROVIDERS: PCP Family Medicine; Visit Provider Family Medicine
DX: J06.9 Acute upper respiratory infection, unspecified (principal); R30.0 Dysuria; B96.29 Other Escherichia coli [E. coli] as the cause of diseases classified elsewhere; B96.89 Other specified bacterial agents as the cause of diseases classified elsewhere
CPT/HCPCS: 80048; 85025; 87086; 87581; 87632; 87635; 87798

== ENCOUNTER 2024-01-03 18:00 | Outpatient (CLI) | payer MEDICAID, SELFPAY | END 2024-01-03 23:59 | disposition home or self-care (01) | LOC: LAB.DROPOF 01-04 12:52 | PROVIDERS: PCP Family Medicine; Visit Provider Family Medicine | DX: J02.9 Acute pharyngitis, unspecified (principal); J44.1 Chronic obstructive pulmonary disease with (acute) exacerbation; U07.1 COVID-19 | CPT/HCPCS: 87635 ==

== ENCOUNTER 2024-02-14 12:00 | Emergency (ER) | payer MEDICAID, SELFPAY ==
[2024-02-14 12:00] VITALS: BP 128/87; PULSE 72; RESP 20; TEMP 36.8; O2SAT 96; BMI 33.2
[2024-02-14 12:10] VITALS: BP 128/87; PULSE 70; O2SAT 88
--- NOTE | 2024-02-14 12:21 | XR_ITS ---
FINAL REPORT CLINICAL HISTORY: dyspnea COMPARISON: 03/22/2023 FINDINGS: SINGLE-VIEW CHEST The heart size is normal. The mediastinum is normal. The lungs are clear. There is no pneumothorax. IMPRESSION: No acute cardiopulmonary process. Reviewed, Interpreted and Dictated by Foster Arnold III, MD Transcribed by Luli Vela Authenticated and [facility]
--- NOTE | 2024-02-14 12:25 | ED_ITS ---
Discharge Plan Disposition Patient Disposition: Home, Self-Care Prescriptions Prescriptions: New benzonatate 100 mg capsule 100 mg PO TID PRN (Reason: cough) 5 Days Qty: 20 0RF prednisone 50 mg tablet 50 mg PO DAILY 5 Days Qty: 5 0RF Rx Instructions: Please begin 1 day after ED visit amoxicillin-pot clavulanate 875-125 mg tablet 1 tab PO BID 10 Days Qty: 20 0RF No Action (DME) nebulizers Misc See Rx Instructions .MEDSUPPLY Qty: 1 0RF Rx Instructions: As directed (DME) nebulizer accessories Kit See Rx Instructions .MEDSUPPLY Qty: 1 0RF Rx Instructions: As directed nicotine 21 mg/24 hr patch 24 hour 1 patch topical bupropion HCl 150 mg tablet extended release 24 hr 150 mg PO DAILY Qty: 30 3RF pantoprazole 40 mg tablet,delayed release (DR/EC) 40 mg PO DAILY Qty: 90 1RF acetaminophen 325 mg capsule 650 mg PO QID PRN (Reason: fever or pain) Qty: 240 2RF ipratropium-albuterol 0.5 mg-3 mg(2.5 mg base)/3 mL solution for nebulization 3 ml INHALATION QID Qty: 90 1RF albuterol sulfate 90 mcg/actuation HFA aerosol inhaler 2 puff inhalation Q4-6H PRN (Reason: shortness of breath or wheezing) Qty: 8.5 2RF benzonatate 200 mg capsule 200 mg PO TID PRN (Reason: cough) Qty: 30 0RF azithromycin 500 mg tablet See Rx Instructions PO .COMPLEX Qty: 3 0RF Rx Instructions: For 500 mg dose pack: take 500 mg once daily for 3 days PO trazodone 50 mg tablet See Rx Instructions .ROUTE .COMPLEX Qty: 30 2RF Dose Instruction: Take 1 Tablet by mouth once daily. Rx Instructions: Take 1 Tablet by mouth once daily. aspirin 81 mg tablet,chewable See Rx Instructions .ROUTE .COMPLEX Qty: 30 2RF Dose Instruction: Chew and Swallow 1 Tablet by mouth once daily. Rx Instructions: Chew and Swallow 1 Tablet by mouth once daily. metoprolol tartrate 50 mg tablet See Rx Instructions .ROUTE .COMPLEX Qty: 120 2RF Dose Instruction: TAKE 1 TABLET BY MOUTH TWICE A DAY FOR HBP Rx Instructions: TAKE 1 TABLET BY MOUTH TWICE A DAY FOR HBP albuterol sulfate [Ventolin HFA] 90 mcg/actuation HFA aerosol inhaler See Rx Instructions .ROUTE .COMPLEX Qty: 18 2RF Dose Instruction: Inhale 2 Puffs into the lungs every 4 to 6 hours as needed for shortness of breath or wheezing. Rx Instructions: Inhale 2 Puffs into the lungs every 4 to 6 hours as needed for shortness of breath or wheezing. Trelegy Ellipta 100-62.5-25 mcg blister with device 1 inh inhalation DAILY Qty: 60 3RF methylprednisolone [Medrol (Trent)] 4 mg tablets,dose pack See Rx Instructions PO PER PKG DIR Qty: 21 0RF Rx Instructions: PO PER PKG DIR dextromethorphan-guaifenesin 60-1,200 mg tablet extended release 12 hr 1 tab PO Q12H Qty: 60 0RF atorvastatin 80 mg tablet See Rx Instructions .ROUTE .COMPLEX Qty: 90 1RF Dose Instruction: TAKE 1 TABLET BY MOUTH AT BEDTIME NIGHTLY FOR HYPERLIPIDEMIA Rx Instructions: TAKE 1 TABLET BY MOUTH AT BEDTIME NIGHTLY FOR HYPERLIPIDEMIA clopidogrel 75 mg Tablet 75 mg PO DAILY Qty: 0 0RF Referrals Follow up/Referrals: Neil Dillard MD [Staff Physician] - See instructions Provider,MD Nam [Referring] - See instructions Rajinder Herr MD [Staff Physician] - See instructions Activity Restrictions/Add. Instructions Additional Instructions/Restrictions: No emergent medical condition identified today your symptoms likely are secondary to a mild to moderate COPD exacerbation. Please follow-up with your primary care doctor regarding an outpatient sleep study as you did have your oxygen saturations that dropped while sleeping but were normal while awake I suspect you have sleep apnea. Additionally please follow-up with our financial representative to have further evaluation of your heart including structural evaluation including an echo and wearing an extended heart monitor. Return with any significant worsening of your symptoms. Clinical Impressions Clinical Impression: Near syncope, Acute exacerbation of chronic obstructive pulmonary disease Stand Alone Forms Stand Alone Forms: Work/School Release Discharge ED Provider: Sarah White General Adult HPI General Chief complaint: Dizziness Stated complaint: Hypertension Time Seen by Provider: 02/14/24 12:16 Mode of Arrival: EMS Source of Information: Patient Limitations: No Limitations Description of Symptoms (Recalled from ER Triage Doc. by RN): Patient reports being dizzy and shaky for one week. States she did fall onto her knees once last week. States that she began vomiting yesterday. History of Present Illness HPI narrative: Patient is a 58-year-old female presenting today with multiple complaints. She states she has been feeling fatigued and dizzy since the last year when she had a MT. She states she had 4 stents and a valve that was replaced she is not sure as to whether or not she is on anticoagulants. She denies any bleeding symptoms. Denies any chest pain or shortness of breath at the moment. States she has not seen a financial representative regularly but has told her primary care doctor about the symptoms worsening over the last few weeks. She states that her body will become wobbly and she will feel like she is not going to fall she states she does not lose consciousness. But just has generalized weakness. At the moment she has none of the symptoms. Related Data Home Medications Medication Instructions Recorded Confirmed nicotine 21 mg/24 hr daily 1 patch topical 04/26/23 01/03/24 transdermal patch Previous Rx's Medication Instructions Recorded nebulizer accessories #1 ea 03/22/23 nebulizers #1 ea 03/22/23 clopidogrel 75 mg tablet 75 mg PO DAILY #0 tabs 03/23/23 bupropion HCl 150 mg 24 hr tablet, 150 mg PO DAILY #30 tabs 06/28/23 extended release pantoprazole 40 mg tablet,delayed 40 mg PO DAILY GERD #90 tabs 06/28/23 release aspirin 81 mg chewable tablet See Rx Instructions .Route 11/07/23 .COMPLEX #30 tabs trazodone 50 mg tablet See Rx Instructions .Route 11/07/23 .COMPLEX #30 tabs acetaminophen 325 mg capsule 650 mg (2 x 325 mg) PO QID PRN 11/11/23 fever or pain #240 caps ipratropium 0.5 mg-albuterol 3 mg 3 ml inhalation QID COPD #90 mL 11/11/23 (2.5 mg base)/3 mL nebulization soln Ventolin HFA 90 mcg/actuation See Rx Instructions .Route 12/12/23 aerosol inhaler (albuterol sulfate) .COMPLEX #18 grams albuterol sulfate 90 mcg/actuation 2 puff inhalation Q4-6H PRN 12/12/23 aerosol inhaler shortness of breath or wheezing #8.5 grams benzonatate 200 mg capsule 200 mg PO TID PRN cough #30 caps 12/12/23 metoprolol tartrate 50 mg tablet See Rx Instructions .Route 12/12/23 .COMPLEX #120 tabs azithromycin 500 mg tablet See Rx Instructions PO .COMPLEX #3 01/03/24 tabs Trelegy Ellipta 100 mcg-62.5 1 inh inhalation DAILY #60 ea 01/05/24 mcg-25 mcg powder for inhalation (nawizqdzsok-buatsoyyt-jisnleop) dextromethorphan-guaifenesin ER 60 1 tab PO Q12H #60 tabs 01/19/24 mg-1,200 mg tab,extend release,12hr methylprednisolone 4 mg tablets in See Rx Instructions PO PER PKG DIR 01/19/24 a dose pack (Medrol (Trent)) #21 tabs atorvastatin 80 mg tablet See Rx Instructions .Route 01/25/24 .COMPLEX #90 tabs amoxicillin 875 mg-potassium 1 tab PO BID 10 days #20 tabs 02/14/24 clavulanate 125 mg tablet benzonatate 100 mg capsule 100 mg PO TID PRN cough 5 days #20 02/14/24 caps prednisone 50 mg tablet 50 mg PO DAILY 5 days #5 tabs 02/14/24 Allergies Allergy/AdvReac Type Severity Reaction Status Date / Time codeine Allergy Verified 01/03/24 15:13 [facility] Disclaimer: The information contained in this section may have been updated after the patient was seen, as this information can be updated by other users. Medical History (Updated 02/14/24 @ 14:15 by Sarah White MD) Sore throat Dysuria URI, acute Encounter for immunization Sleep disorder Cholelithiasis Anxiety CAD (coronary artery disease) Hypomagnesemia Impetigo Family history of seizure in brother Murmur GERD (gastroesophageal reflux disease) COPD exacerbation Palpitation Screening, lipid Screening for diabetes mellitus MVP (mitral valve prolapse) Pre-syncope Chest pain Surgical History S/P TAVR (transcatheter aortic valve replacement) History of heart artery stent S/P AVR (aortic valve replacement) Social History Smoking Status: Current every day smoker alcohol intake: never substance use type: denies use current occupational status: unemployed Travel in the last 8 weeks: None ROS Obtained: Yes All systems reviewed & no additional complaints except as documented Physical Exam General General appearance: alert Respiratory Respiratory exam: Present normal lung sounds bilaterally; Absent respiratory distress Cardiovascular Cardiovascular exam: Present regular rate and normal rhythm Abdominal Exam Abdominal exam: Present soft; Absent distention or tenderness Neurological Exam Neurological exam: Present alert and oriented X3 Medical Decision Making Cristóbal Inquiry Pt receiving controlled substance: No Vital Signs: 02/14/24 12:00 02/14/24 12:10 Temperature 98.2 F Temperature Source Oral Pulse Rate 70 Pulse Rate [Radial] 72 Respiratory Rate 20 Blood Pressure 128/87 Blood Pressure [Right Arm] 128/87 Blood Pressure Mean [Right Arm] 100 Blood Pressure Source [Right Arm] Automatic Cuff Blood Pressure Position [Right Arm] Sitting 02 Sat by Pulse Oximetry 96 88 L Oxygen Delivery Method Room Air Lab Data Lab results reviewed: Yes I reviewed the patient's lab results. Lab Results 02/14/24 12:38: WBC 8.2, RBC 5.58 H, Hgb 17.0 H, Hct 51.8 H, MCV 93.0, MCH 30.5, MCHC 32.8, RDW 15.2, Plt Count 212, MPV 7.6, Neut % (Auto) 74.2, Lymph % (Auto) 18.6, [place] % (Auto) 4.1, Eos % (Auto) 1.7, Baso % (Auto) 1.5, Neut # (Auto) 6.1, Lymph # (Auto) 1.5, [place] # (Auto) 0.3, Eos # (Auto) 0.1, Baso # (Auto) 0.1, Sodium 136, Potassium 3.6, Chloride 95 L, Carbon Dioxide 35 H, Anion Gap 9.6, BUN 11, Creatinine 0.50 L, Estimated Creat Clear 149, Estimated GFR 127, Est GFR ( Amer) 153, Glucose 98, Calcium 9.7, Magnesium 1.7, Total Bilirubin 0.5, AST 90 H, ALT 88 H, Alkaline Phosphatase 100, Troponin I < 0.01, Total Protein 7.4, Albumin 4.2, Globulin 3.2, Albumin/Globulin Ratio 1.3, TSH 2.13 02/14/24 12:38 02/14/24 12:38 Orders (Tests/Meds): ED MEDICATIONS Discontinued Medications Generic Name Dose Route Start Last Admin Trade Name Benita PRN Reason Stop Dose Admin Lactated Ringer's 500 mls @ 999 mls/hr 02/14/24 12:30 02/14/24 12:36 Lactated Ringer's 1000 Ml Bag IV 02/14/24 13:00 999 mls/hr .Q31M PAYAM Administration ORDERS Category Date Time Status CXR --portable [XR chest portable] Stat Exams 02/14/24 12:21 Taken CBC w/Auto Diff [Complete Blood Count Auto Diff] Stat Lab 02/14/24 12:38 Completed CMP [Comprehensive Metabolic Panel] Stat Lab 02/14/24 12:38 Completed Magnesium Stat Lab 02/14/24 12:38 Completed TSH [Thyroid Stimulating Hormone] Stat Lab 02/14/24 12:38 Completed Trop I [Troponin I] Stat Lab 02/14/24 12:38 Completed Troponin I Q3H Lab 02/14/24 15:30 Ordered Troponin I Q3H Lab 02/14/24 18:30 Ordered Medical Decision Narrative: Nontoxic-appearing 58-year-old female presenting today with near syncope and generalized weakness. Differential includes electrolyte abnormalities heart failure, dehydration arrhythmia etc. Will check basic blood work EKG and will likely have her wear a monitor and follow-up with cardiology. Reassessment 2:18 PM. Chest x-ray performed to person interpreted shows no significant cardiopulmonary abnormality no large lobar consolidation. Patient did have episodes in the emergency department her oxygen saturations dropped in the 80s but this was while she was sleeping once awake and upright and breathing normally her oxygen saturations were in the mid 90s I suspect she has underlying sleep apnea she has been advised to follow-up with primary care doctor regarding this to get a sleep study. Additionally I talked to her further about her cough she did state that her cough has been little bit worse than normal and may be more productive of sputum no obvious consolidation or pneumonia Cannot rule out structural heart disease or arrhythmia she will follow-up with cardiology in addition to her primary care doctor. She has been given steroids and antibiotics for her mild to moderate COPD exacerbation as well. She states she has albuterol inhalers and has not needed refill that. She was very stable well-appearing with normal vital signs upon being discharged. Critical Care Critical Care Time Critical Care Time: No
--- NOTE | 2024-02-14 12:33 | ECG_ITS ---
APPROVED REPORT Exam: Resting ECG HR:66 bpm ECG Measurements Heart Rate 66 AXES IA 145 P 39 QRSd 95 QRS -6 QT 416 T 22 QTc 429 Conclusion SINUS RHYTHM POSSIBLE RIGHT VENTRICULAR CONDUCTION DELAY [RSR (QR) IN V1/V2] BORDERLINE ECG UNCONFIRMED REPORT Electronically signed by : Albert White, 02/14/2024 15:00:35
[2024-02-14] MEDS: LACTATED RINGERS 1000ML 500 ML 999 ML IV (12:36)
[2024-02-14 12:46] LABS: Basophils # 0.1 K/mm3 (0-0.2); Basophils % 1.5 % (0.1-2.0); Eosinophils # 0.1 K/mm3 (0.0-0.4); Eosinophils % 1.7 % (0.1-12.0); Hematocrit 51.8 % (37.0-47.0); Lymphocytes # 1.5 K/mm3 (0.7-4.5); Lymphocytes % 18.6 % (10-50); Mean Corpuscular HGB Conc 32.8 g/dL (31.8-35.4); Mean Corpuscular Hemoglobin 30.5 pg (27.0-31.2); Mean Platelet Volume 7.6 fl (7.4-10.4); Monocytes # 0.3 K/mm3 (0.1-1.0); Monocytes % 4.1 % (1.7-9.3); Neutrophils # 6.1 K/mm3 (1.8-7.8); Neutrophils % 74.2 % (37.0-80.0); Platelet Count 212 K/mm3 (142-424); Red Blood Count 5.58 M/mm3 (4.20-5.40); Red Cell Distribution Width 15.2 % (11.5-17.5); White Blood Count 8.2 K/mm3 (4.8-10.8)
[2024-02-14 12:50] LABS: Chloride 95 mmol/L (98-107); Potassium 3.6 mmoL/L (3.5-5.1); Sodium 136 mmol/L (136-145)
[2024-02-14 12:53] LABS: Alanine Aminotransferase 88 U/L (12-78); Albumin Level 4.2 g/dl (3.5-5.0); Albumin/Globulin Ratio 1.3 (1.1-1.8); Alkaline Phosphatase 100 U/L (38-126); Anion Gap 9.6 mEq/L (5-15); Aspartate Amino Transferase 90 U/L (14-36); Bilirubin,Total 0.5 mg/dl (0.2-1.3); Blood Urea Nitrogen 11 mg/dl (7-17); Calcium 9.7 mg/dl (8.4-10.2); Carbon Dioxide 35 mmol/L (22.0-30.0); Creatinine Clearance Estimated 149 mL/min (50-200); Estimated Glomerular Filt Rate 127 ml/min (>60); GFR (African American) 153 ML/MIN (>60); Globulin 3.2 g/dL (1.3-3.2); Glucose 98 mg/dl (74-100); Total Protein,Serum 7.4 g/dl (6.3-8.2)
[2024-02-14 12:54] LABS: Magnesium 1.7 mg/dl (1.6-2.3)
[2024-02-14 13:24] LABS: Thyroid Stimulating Hormone 2.13 uIU/mL (0.465-4.68)
[2024-02-14 13:34] LABS: Troponin I < 0.01 ng/ml (0.00-0.034)
--- NOTE | 2024-02-14 14:24 | PC.NURSE ---
CARE MANAGEMENT NOTIFIED TO HELP ASSIST WITH PT RIDE BACK HOME
--- NOTE | 2024-02-14 14:31 | PC.NURSE ---
Digna Chester called down and advised that thr ride for this room would be here in about a half an hour
[2024-02-14 14:32] VITALS: BP 131/75; PULSE 76; RESP 22; TEMP 36.6; O2SAT 91
--- NOTE | 2024-02-14 14:47 | SW/DCPLANNER ---
I have arranged [employer] for this patient.
== END 2024-02-14 14:33 | disposition home or self-care (01) ==
PROVIDERS: Emergency Provider Student in an Organized Health Care Education/Training Program; PCP Family Medicine
DX: J44.1 Chronic obstructive pulmonary disease with (acute) exacerbation (principal); R55 Syncope and collapse; F17.210 Nicotine dependence, cigarettes, uncomplicated; K21.9 Gastro-esophageal reflux disease without esophagitis; Z95.5 Presence of coronary angioplasty implant and graft; Z86.79 Personal history of other diseases of the circulatory system
CPT/HCPCS: 71045; 80053; 83735; 84443; 84484; 85025; 93005; 99284; J7120

== ENCOUNTER 2024-02-20 15:07 | Outpatient (CLI) | payer MEDICAID, SELFPAY ==
[2024-02-20 14:39] LABS: Basophils % 0.4 % (0.1-2.0); Eosinophils # 0.1 K/mm3 (0.0-0.4); Eosinophils % 0.5 % (0.1-12.0); Hematocrit 50.1 % (37.0-47.0); Hemoglobin 16.1 g/dL (12.2-16.2); Lymphocytes # 1.4 K/mm3 (0.7-4.5); Lymphocytes % 13.7 % (10-50); Mean Corpuscular HGB Conc 32.1 g/dL (31.8-35.4); Mean Corpuscular Hemoglobin 30.4 pg (27.0-31.2); Mean Corpuscular Volume 94.7 fl (81-99); Mean Platelet Volume 8.4 fl (7.4-10.4); Monocytes # 0.5 K/mm3 (0.1-1.0); Monocytes % 4.5 % (1.7-9.3); Neutrophils # 8.1 K/mm3 (1.8-7.8); Platelet Count 282 K/mm3 (142-424); Red Blood Count 5.29 M/mm3 (4.20-5.40); Red Cell Distribution Width 14.9 % (11.5-17.5)
[2024-02-20 14:58] LABS: Alanine Aminotransferase 104 U/L (12-78); Albumin Level 4.1 g/dl (3.5-5.0); Albumin/Globulin Ratio 1.5 (1.1-1.8); Alkaline Phosphatase 74 U/L (38-126); Anion Gap 12.9 mEq/L (5-15); Aspartate Amino Transferase 87 U/L (14-36); Bilirubin,Total 0.5 mg/dl (0.2-1.3); Blood Urea Nitrogen 11 mg/dl (7-17); Calcium 10.1 mg/dl (8.4-10.2); Carbon Dioxide 32 mmol/L (22.0-30.0); Chloride 96 mmol/L (98-107); Chol/HDL Ratio 2.2 (1-3.5); Cholesterol 206 mg/dl (140-200); Estimated Glomerular Filt Rate 127 ml/min (>60); GFR (African American) 153 ML/MIN (>60); Globulin 2.7 g/dL (1.3-3.2); Glucose 124 mg/dl (74-100); HDL Cholesterol 93 mg/dl (40-60); Potassium 3.9 mmoL/L (3.5-5.1); Sodium 137 mmol/L (136-145); Total Protein,Serum 6.8 g/dl (6.3-8.2); Triglycerides 100 mg/dl (30-150); VLDL Cholesterol 20 mg/dL (0-40)
[2024-02-20 15:04] LABS: D-Dimer 0.35 ug/mL (0.0-0.5)
[2024-02-20 15:30] LABS: 25-OH Vitamin D, Total 17.5 ng/mL (30-100); Thyroid Stimulating Hormone 1.36 uIU/mL (0.465-4.68)
[2024-02-20 15:50] LABS: Vitamin B12 456 pg/mL (239-931)
[2024-02-20 17:19] LABS: Ferritin 67.9 ng/ml (11.1-264)
[2024-02-22 06:35] LABS: HBsAg Screen Negative (Negative); HCV Ab Non Reactive (Non Reactive); Hep A Ab, IGM Negative (Negative); Hep B Core Ab, IgM Negative (Negative)
== END 2024-02-20 23:59 | disposition home or self-care (01) ==
LOC: LAB.DROPOF 15:07
PROVIDERS: PCP Nurse Practitioner Family; Visit Provider Nurse Practitioner Family
DX: R55 Syncope and collapse (principal); R00.2 Palpitations; I25.10 Atherosclerotic heart disease of native coronary artery without angina pectoris; R74.8 Abnormal levels of other serum enzymes
CPT/HCPCS: 80050; 80053; 80061; 80074; 82306; 82607; 82728; 83735; 84443; 85025; 85378

== ENCOUNTER 2024-02-29 11:53 | Outpatient (CLI) | payer MEDICAID, SELFPAY ==
--- NOTE | 2024-02-29 12:12 | CA_ITS ---
FINAL REPORT TECHNIQUE: Compression lundy scale and Doppler evaluation CLINICAL HISTORY: RLE pain and edema COMPARISON: None FINDINGS: Femoral and popliteal veins show normal compressibility and flow. Visualized portion of the calf veins are patent by Doppler exam. IMPRESSION: No evidence of right lower extremity deep venous thrombosis Reviewed, Interpreted and Dictated by Chet Mistry MD Transcribed by Sherice Bell Authenticated and [facility]
== END 2024-02-29 23:59 | disposition home or self-care (01) ==
PROVIDERS: PCP Nurse Practitioner Family; Visit Provider Physician Assistant
DX: R55 Syncope and collapse (principal); R42 Dizziness and giddiness; M79.661 Pain in right lower leg; R60.0 Localized edema
CPT/HCPCS: 93225; 93227; 93971

== ENCOUNTER 2024-03-06 12:27 | Outpatient (CLI) | payer MEDICAID, SELFPAY ==
--- NOTE | 2024-03-06 12:28 | MM_ITS ---
PROCEDURE INFORMATION: Exam: MG Bilateral Screening 3D Mammography Exam date and time: 03/06/2024 12:51 PM Age: 58 years old Clinical indication: Screening mammogram TECHNIQUE: Imaging protocol: Bilateral Screening tomosynthesis and 2D mammography including computer-aided detection (CAD) when performed. COMPARISON: No relevant prior studies available. FINDINGS: MAMMOGRAPHY: Breast composition: There are scattered areas of fibroglandular density. Mass: None. Architectural distortion: No new or suspicious architectural distortion. Calcifications: No new or suspicious calcifications are present Asymmetric density: No new or suspicious asymmetric density is present Skin thickening: None. Axillary adenopathy: None. IMPRESSION: No mammographic evidence of malignancy. Recommend annual screening mammography unless otherwise clinically indicated. ASSESSMENT: BI-RADS category 1: Negative.
== END 2024-03-06 23:59 | disposition home or self-care (01) ==
LOC: RAD 12:28
PROVIDERS: PCP Nurse Practitioner Family; Visit Provider Nurse Practitioner Family
DX: Z12.31 Encounter for screening mammogram for malignant neoplasm of breast (principal)
CPT/HCPCS: 77063; 77067

== ENCOUNTER 2024-03-07 08:39 | Outpatient (CLI) | payer MEDICAID, SELFPAY ==
--- NOTE | 2024-03-07 08:40 | US_ITS ---
FINAL REPORT CLINICAL HISTORY: elevated liver enzymes COMPARISON: None FINDINGS: Sonographic images of the right upper quadrant were obtained. The pancreas is partially obscured. There is a 1.5 cm hyperechoic focus in the liver, that may represent a mass or focal fatty infiltration. There is mild increased echogenicity throughout the liver consistent with fatty infiltration. The gallbladder appears normal without evidence of gallstones.There is no evidence of biliary ductal dilatation.The common duct measures 4mm. Limited images of the right kidney are unremarkable. IMPRESSION: 1.5 cm hyperechoic focus in the liver, which may represent a mass or focal fatty infiltration. Correlation with MRI of the liver with and without contrast would be helpful for further evaluation. Fatty infiltration of the liver. Reviewed, Interpreted and Dictated by Foster Arnold III, MD Transcribed by Florence Martinez Authenticated and [facility]
== END 2024-03-07 23:59 | disposition home or self-care (01) ==
LOC: RAD 08:40
PROVIDERS: PCP Nurse Practitioner Family; Visit Provider Nurse Practitioner Family
DX: R74.8 Abnormal levels of other serum enzymes (principal)
CPT/HCPCS: 76705

== ENCOUNTER 2024-03-12 06:22 | Outpatient (CLI) | payer MEDICAID, SELFPAY ==
--- NOTE | 2024-03-12 06:30 | NM_ITS ---
APPROVED REPORT Exam: Nuclear Stress Test Indication: Chest pain, SOB, Fatigue, HTN, High cholesterol, Tobacco use, Family history, CAD, Hx of [place] Patient Location: Outpatient Stress Tech: Tianna Arcos NM Tech:Edith Downey, ARRT, RT (R)(N) Ht: 5 ft 3 in Wt: 175 lbs Bra Size: D HR: 66 bpm BP: 160/81 mmHg BSA: 1.83 m2 TID: 1.35 BMI: 30.9 History: Chest pain, SOB, Fatigue, HTN, High cholesterol, Tobacco use, Family history, CAD, Hx of [place] Procedure: Patient received 0.4 mg of intravenous AdenosineLexiscan, resting heart rate 66 bpm, resting blood pressure 160/81 mmHg, with Lexiscan maximum heart rate achieved was 80 bpm which is % of the maximum predicted heart rate and blood pressure was 160/81 mmHg. With Lexiscan, patient denied any complaint of chest pain. Cardiac Stress and Resting SPECT Images: Cardiac Stress and Resting SPECT images were obtained using technetium 99m Myoview 31.3 mCi stress and 10.14 mCi at rest. Resting and stress imaging in supine and prone positions demonstrate no evidence of focal fixed or reversible perfusion defects. There is increase in transient ischemic dilatation ratio (TID 1.35), suggestive of possible multivessel disease or balanced ischemia. Gated imaging demonstrates normal global and regional LV systolic function. LVEF is calculated at 66%. Conclusion: No evidence of focal fixed or reversible perfusion defects. There is increase in transient ischemic dilatation ratio (TID 1.35), suggestive of possible multivessel disease or balanced ischemia. Gated imaging demonstrates normal global and regional LV systolic function. LVEF is calculated at 66%. Electronically signed by : Candi Gallagher MD 03/13/2024 12:41:41
--- NOTE | 2024-03-12 07:25 | CA_ITS ---
APPROVED REPORT EXAM: Comprehensive 2D, Doppler, and color-flow Echocardiogram Sybase Developer: Gay Langston RDCS Ht: 5 ft 0 in Wt: 175lbs BSA: 1.76 BP: 131/73 mmHg Indications: CP,AVR PORCINE,SOA,EDEMA,DIZZINESS M-Mode Dimensions RVDd 2.02 cm (0.9-2.6) LA Diam 3.85 cm (1.9-4.0) LVDd 4.76 cm (3.5-5.7) LVDs 3.32 cm (3.5-5.7) IVSd 1.22 cm (0.6-1.1) PWd 0.88 cm (0.6-1.1) EF (Teich) 57.50% FS 30.30% EDV (Teich) 105.40 mL ESV (Teich) 44.80 mL LV Diastology E Decel Time 180 (160-240 msec) E/A Ratio 1.2 Aortic Valve MEGHAN Index 0.47 cm2/m2 AoV Peak Jaime. 223.0 (50-130 cm/s) AO Peak GR. 19.90 mmHg AO Mean GR. 9.80 (<5 mmHg) AO VTI 50.6 (18-25 cm) MEGHAN (VTI) 0.85 (2.5-4.5 cm2) Mitral Valve MV E Max Jaime. 126.0 (40-130 cm/s) MV A Velocity 108.0 (40-130 cm/s) E/A Ratio 1.16 MV PHT 53.0 ms Tricuspid Valve TR P. Velocity 333.00 cm/s RAP Estimate 10.00 mmHg RVSP 54.40 mmHg Left Ventricle The left ventricle is normal size. The left ventricular systolic function is normal. The left ventricular ejection fraction is within the normal range. There is increased LV wall thickness. There is normal LV segmental wall motion. Grade 2 diastolic dysfunction. LVEF is 55%. Right Ventricle Right ventricle is mildly dilated. The right ventricular systolic function is normal. Atria Left atrium is mildly dilated. Right atrium is mildly dilated. There is no Doppler evidence of interatrial shunt. Aortic Valve s/p bioprosthetic AVR. The AVR prosthesis is well-seated. Peak velocity 2.2 m/s. Mean AV gradient 10 mmHg. Max AV gradient 20 mmHg. Acceleration time 72 ms. Trace aortic regurgitation. Mitral Valve The mitral valve leaflets are mildly thickened. No evidence of mitral valve stenosis. Mild to moderate mitral regurgitation. Tricuspid Valve The tricuspid valve leaflets are thin and pliable. Mild tricuspid regurgitation. RVSP is 40-45 mmHg. Pulmonic Valve The pulmonary valve is normal in structure. Trace pulmonic regurgitation. Great Vessels The aortic root is normal in size. The ascending aorta is not well-visualized. IVC is normal in size and collapses >50% with inspiration. Pericardium There is no pericardial effusion. Other Information Study Quality: Fair Conclusion Normal biventricular systolic function. Mild RV dilation. Mild biatrial dilation. s/p bioprosthetic AVR with overall acceptable parameters (peak velocity 2.2 m/s. Mean AV gradient 10 mmHg. Max AV gradient 20 mmHg, acceleration time 72 ms). Mild to moderate MR. Mild TR. Elevated RVSP 40-45 mmHg. Electronically signed by : Candi Gallagher MD 03/14/2024 21:50:03
[2024-03-12] MEDS: SODIUM CHLORIDE 0.9% 10ML SYR (RAD ONLY) 10 ML IV ×2 (08:32)
[2024-03-12] MEDS: ISOTOPE MYOVIEW (PER STUDY) 1 DOSE IV (08:32)
[2024-03-12] MEDS: REGADENOSON 0.4MG/5ML SYRINGE 0.4 MG IV (08:32)
--- NOTE | 2024-03-12 09:52 | CA_ITS ---
APPROVED REPORT Exam: Pharmacologic Technologist: Tianna Arcos Ht: 5 ft 0 in Wt: 175 lbs BSA: 1.76 m2 HR: 68 bpm BP: 160/81 mmHg Indications: Chest pain, dyspnea, abnormal EKG Medical History Medications: Aspirin,,,,, Metoprolol Tartrate,,,,, Atorvastatin,,,,, Duoneb,,,,, Nicotine,,,,, Albuterol,,,,, CloPIdogrel,,,,, BenzONATATE,,,,, Trazodone,,,,, Pantroprazole,,,,, Furosemide,,,,, Trelegy/ellipta,,,,, Stress Test Details Test: LEXISCAN HR Resting HR: 66 bpm Max Heart Rate (APMHR): 162 bpm Max HR Achieved: 80 bpm Target HR (85% APMHR): 138 bpm % of APMHR: 49 Recovery HR: 72 bpm BP Resting BP: 160.0/81.0 mmHg Max BP: 160.0/81.0 mmHg Recovery BP: 137.0/78.0 mmHg ECG Resting ECG: Sinus rhythm, no ischemia Stress ECG: No significant ST changes Arrhythmia: None Clinical Exercise duration: 04:00 min Highest Stage Achieved: Exercise capacity: 1.0 METs Stress ECG Conclusion Symptoms: Shortness of air Arrhythmias/Ectopy: none ST-T Changes: None Conclusion: Unremarkable Lexiscan stress test. Myoview images reported separately. Test Summary REST 20:44 . . 66 . 160/ 81 . . Stage 1 . . . . . . . Myoview Injected Stage 1 01:00 . . 78 . . . . Stage 2 01:00 . . 75 . 124/ 75 . . Stage 3 01:00 . . 77 . 126/ 76 . . Stage 4 01:00 . . 71 . 129/ 77 . Stop exercise at 04:00 RECOVERY 01:00 . . 72 . 139/ 83 . . RECOVERY 02:00 . . 72 . 139/ 83 . . RECOVERY 03:00 . . 74 . 148/ 77 . . RECOVERY 03:44 . . 70 . 137/ 78 . . Electronically signed by : Candi Gallagher MD 03/13/2024 12:39:52
== END 2024-03-12 23:59 | disposition home or self-care (01) ==
LOC: RAD 06:23
PROVIDERS: PCP Nurse Practitioner Family; Visit Provider Physician Assistant
DX: I25.10 Atherosclerotic heart disease of native coronary artery without angina pectoris (principal); R07.9 Chest pain, unspecified; R55 Syncope and collapse; R42 Dizziness and giddiness; Z95.2 Presence of prosthetic heart valve; Z72.0 Tobacco use
CPT/HCPCS: 78452; 93017; 93018; 93306; A9502; J2785

== ENCOUNTER 2024-03-14 14:45 | Outpatient (CLI) | payer MEDICAID, SELFPAY ==
[2024-03-14 13:02] LABS: Basophils # 0.1 K/mm3 (0-0.2); Basophils % 0.9 % (0.1-2.0); Eosinophils # 0.2 K/mm3 (0.0-0.4); Eosinophils % 1.7 % (0.1-12.0); Lymphocytes # 2.5 K/mm3 (0.7-4.5); Lymphocytes % 25.8 % (10-50); Mean Corpuscular HGB Conc 32.7 g/dL (31.8-35.4); Mean Corpuscular Hemoglobin 30.8 pg (27.0-31.2); Mean Corpuscular Volume 94.3 fl (81-99); Mean Platelet Volume 7.9 fl (7.4-10.4); Monocytes # 0.4 K/mm3 (0.1-1.0); Monocytes % 4.2 % (1.7-9.3); Neutrophils # 6.6 K/mm3 (1.8-7.8); Neutrophils % 67.4 % (37.0-80.0); Platelet Count 319 K/mm3 (142-424); Red Blood Count 4.88 M/mm3 (4.20-5.40); Red Cell Distribution Width 14.3 % (11.5-17.5); White Blood Count 9.8 K/mm3 (4.8-10.8)
[2024-03-14 15:02] LABS: Alanine Aminotransferase 18 U/L (12-78); Albumin Level 3.8 g/dl (3.5-5.0); Albumin/Globulin Ratio 1.4 (1.1-1.8); Alkaline Phosphatase 101 U/L (38-126); Anion Gap 8.2 mEq/L (5-15); Aspartate Amino Transferase 28 U/L (14-36); Bilirubin,Total 0.5 mg/dl (0.2-1.3); Blood Urea Nitrogen 5 mg/dl (7-17); Calcium 9.5 mg/dl (8.4-10.2); Carbon Dioxide 33 mmol/L (22.0-30.0); Chloride 103 mmol/L (98-107); Estimated Glomerular Filt Rate 127 ml/min (>60); GFR (African American) 153 ML/MIN (>60); Globulin 2.7 g/dL (1.3-3.2); Glucose 81 mg/dl (74-100); Potassium 4.2 mmoL/L (3.5-5.1); Sodium 140 mmol/L (136-145); Total Protein,Serum 6.5 g/dl (6.3-8.2); Uric Acid 4.4 mg/dl (2.5-6.2)
== END 2024-03-14 23:59 | disposition home or self-care (01) ==
LOC: LAB.DROPOF 14:45
PROVIDERS: PCP Nurse Practitioner Family; Visit Provider Nurse Practitioner Family
DX: R22.41 Localized swelling, mass and lump, right lower limb (principal)
CPT/HCPCS: 80053; 84550; 85025

== ENCOUNTER 2024-03-21 10:58 | Outpatient (CLI) | payer MEDICAID, SELFPAY ==
--- NOTE | 2024-03-21 11:06 | XR_ITS ---
FINAL REPORT CLINICAL HISTORY: right ankle pain and swelling PAIN AND SWELLING FOR A MONTH - STAPH INFECTION FINDINGS: AP, oblique, and lateral views of the right ankle were obtained. There is no prior exam for comparison. There is degenerative joint disease. Diffuse soft tissue edema is identified. IMPRESSION: Soft tissue edema without acute osseous abnormality. Reviewed, Interpreted and Dictated by Coleen Kerr MD Transcribed by Luli Vela Authenticated and [facility]
[2024-03-21 11:54] LABS: Uric Acid 4.9 mg/dl (2.5-6.2)
[2024-03-21 12:12] LABS: Basophils # 0.1 K/mm3 (0-0.2); Basophils % 1.3 % (0.1-2.0); Eosinophils # 0.2 K/mm3 (0.0-0.4); Eosinophils % 1.9 % (0.1-12.0); Hematocrit 47.6 % (37.0-47.0); Hemoglobin 15.8 g/dL (12.2-16.2); Lymphocytes # 2.8 K/mm3 (0.7-4.5); Lymphocytes % 29.3 % (10-50); Mean Corpuscular HGB Conc 33.3 g/dL (31.8-35.4); Mean Corpuscular Hemoglobin 30.8 pg (27.0-31.2); Mean Corpuscular Volume 92.5 fl (81-99); Mean Platelet Volume 7.8 fl (7.4-10.4); Monocytes # 0.4 K/mm3 (0.1-1.0); Monocytes % 3.7 % (1.7-9.3); Neutrophils # 6.1 K/mm3 (1.8-7.8); Neutrophils % 63.8 % (37.0-80.0); Platelet Count 287 K/mm3 (142-424); Red Blood Count 5.15 M/mm3 (4.20-5.40); Red Cell Distribution Width 14.4 % (11.5-17.5); White Blood Count 9.5 K/mm3 (4.8-10.8)
[2024-03-21 13:36] LABS: Erythrocyte Sedimentation Rate 8 mm/hr (0-30)
[2024-03-23 08:49] LABS: RA Latex Turbid. <10.0 IU/mL (<14.0)
[2024-03-23 16:14] LABS: Antinuclear Antibodies, IFA Negative (.)
[2024-03-28 21:23] LABS: Magnesium,RBC 4.8 mg/dL (3.7-7.0)
== END 2024-03-21 23:59 | disposition home or self-care (01) ==
LOC: LAB 11:03
PROVIDERS: PCP Nurse Practitioner Family; Visit Provider Nurse Practitioner Family
DX: M25.471 Effusion, right ankle (principal); E83.42 Hypomagnesemia
CPT/HCPCS: 36415; 73610; 83735; 84550; 85025; 85651; 86038; 86431

== ENCOUNTER 2024-03-21 11:33 | Outpatient (RCR) | payer MEDICAID, SELFPAY | END 2024-03-21 13:00 | disposition home or self-care (01) | LOC: PT 11:33 | PROVIDERS: Visit Provider Nurse Practitioner Family | DX: M25.471 Effusion, right ankle (principal) | CPT/HCPCS: 97760 ==

== ENCOUNTER 2024-03-23 12:27 | Outpatient (CLI) | payer MEDICAID, SELFPAY ==
--- NOTE | 2024-03-23 13:05 | MR_ITS ---
FINAL REPORT TECHNIQUE: Multiplanar and multisequence imaging of the brain was obtained without contrast. CLINICAL HISTORY: Near syncope, HEADACHE, DIZZINESS AND LIGHTHEADEDNESS FINDINGS: There is no mass effect or midline shift. There are few subcortical foci of T2 abnormality which are nonspecific. The ventricles are symmetric without hydrocephalus. The cerebellum and brainstem have an unremarkable appearance. There are no areas of restricted diffusion on diffusion weighted images to suggest acute infarct. Soft tissues are without acute abnormality. IMPRESSION: No acute intracranial abnormality. Subcortical foci of T2 abnormality which could be chronic small vessel ischemia or sequela of migraine headaches. Reviewed, Interpreted and Dictated by Coleen Kerr MD Transcribed by Luli Vela Authenticated and [facility]
== END 2024-03-23 23:59 | disposition home or self-care (01) ==
LOC: RAD 12:28
PROVIDERS: PCP Nurse Practitioner Family; Visit Provider Nurse Practitioner Family
DX: R55 Syncope and collapse (principal); R51.9 Headache, unspecified; R42 Dizziness and giddiness
CPT/HCPCS: 70551

== ENCOUNTER 2024-04-09 10:31 | Outpatient (RCR) | payer MEDICAID, SELFPAY ==
--- NOTE | 2024-04-09 15:39 | HMH.PTOPEV ---
PT Outpatient Evaluation Rehab PT Outpatient Evaluation Start: 04/09/24 10:57 Freq: Status: Active Protocol: Document 04/09/24 10:57 ANGEL (Rec: 04/09/24 15:39 ANGEL [id number]) E-signed By Chelsie Klein, PT Outpatient Therapy Subjective History Subjective History Pt is a 58 y/o female who reports onset of R lateral ankle pain and swelling in mid February-March. Pt reports multiple falls in February due to intermittent onset of right sided tremors without known cause, states she has informed her doctors and they are ordering tests for this. Pt reports recent history of cellulitis in the R ankle as well successfully treated with 2 rounds of antibiotics. Pt had a R ankle xray on 03/21/24 with impression of Soft tissue edema without acute osseous abnormality. Pt reports she wore a short walking boot for 1-2 weeks, currently is WBAT in tennis shoe. Pt reports continued lateral pain and swelling exacerbated by prolonged standing and walking. Pt reports she works at the [employer] and is on her feet most of the day. Pt reports she has been wearing an ankle sleeve and elevating her legs at night to assist with swelling. Pt reports she returns to her MD on 04/17/24 for her next follow-up visit. Medical History: Hypertension, Atypical Angina, Dyspnea, Anxiety, CAD, COPD, GERD R ankle figure 8 girth: 58cm; malleoli circumference 25.5cm New diagnosis of cancer in past 12 No months? Chief Complaint Pain,Swelling Symptom Type Ache,Dull Symptoms Relieved By Rest/Positioning,Elevation Symptoms Aggravated By Standing,Walking Current Functional Limitations Housework,Standing,Walking Symptom Description Intermittent Level of pain today (0-10) 2 Pain scale - at its best (0-10) 0 Pain scale - at its worst (0-10) 5 Ankle/Foot Eval Gait Observation General Gait Pattern Observation Antalgic Gait,Decrease Weight Bear (R) Assistive Device Ambulation Assistive Device None Palpation Tenderness right Ankle/Foot Palpation Findings Tenderness Ankle/Foot Palpation Overall Comment lateral malleoli, peroneals, anterior ankle joint 3/4 TTP ROM Ankle/Foot Dorsiflexion W/Knee Flexed 10 Passive Range Motion (degrees) Ankle/Foot Plantar Flexion Active Range 32 of Motion (degrees) Ankle/Foot Eversion Active Range of 12 Motion (degrees) Ankle/Foot Inversion Active Range of 35 Motion (degrees) MMT Ankle Dorsiflexion Strength Grade 4 Good Ankle Plantarflexion Strength Grade 4- Good- Foot Eversion Strength Grade 4- Good- Foot Inversion Strength Grade 4- Good- Special Tests Ankle Anterior Drawer Test Negative Right Talar Tilt Test Negative Right Foot/Heel Tap/Percussion Test Negative Right Lower Extremity Functional Index Activities Today, do you or would you have any difficulty at all with: a.Any of your usual work, housework or Moderate difficulty school activities b. Your usual hobbies, recreational or Moderate difficulty sporting activities c. Getting into or out of the bath Moderate difficulty d. Walking between rooms Moderate difficulty e. Putting on your shoes or socks Moderate difficulty f. Squatting Moderate difficulty g. Lifting an object, like a bag of Moderate difficulty groceries from the floor h. Performing light activities around A little bit of difficulty your home i. Performing heavy activities around A little bit of difficulty your home j. Getting into or out of a car Moderate difficulty k. Walking 2 blocks Moderate difficulty l. Walking a mile Moderate difficulty m. Going up or down 10 stairs (about 1 A little bit of difficulty flight of stairs) n. Standing for 1 hour Moderate difficulty o. Sitting for 1 hour A little bit of difficulty p. Running on even ground Moderate difficulty q. Running on uneven ground Moderate difficulty r. Making sharp turns while running fast Moderate difficulty s. Hopping Moderate difficulty t. Rolling over in bed Moderate difficulty LEFI Score Lower Extremity Functional Index Score 44 Outpatient Therapy Assessment Impairments Problems/Impairmments Palpation Tenderness,Impaired Range of Motion,Impaired Strength,Impaired Gait Pattern ,Impaired Walking,Impaired Standing,Impaired Stepping on Uneven Surface,Impaired Work Activities,Impaired Balance, Increased Edema,Subjective C/O Pain,Impaired Self Care/Self Management Prognosis Rehab Potential Good Clinical Impression Consistent with Diagnosis Yes Short Term Goals Number of Weeks 3 Decrease Edema Yes Improve Self Care/Self Management Yes Patient to be Ind w/ HEP Yes Jail Goals Number of Weeks 6 Decreased Palpation Tenderness Yes: 0-1/4 TTP of R ankle Increase Range of Motion Yes: Improve R ankle AROM to WNL Increase Strength Yes: Improve R ankle MMT to 4+ -5/5 grossly to assist with function Improve Tolerance to Work Activities Yes: report ability to work a whole shift with pain 2-3/10 or less Improve LEFI Score Yes: Improve score to at least 54/80 to improve overall QOL Decrease Edema Yes Decrease Subjective C/O Pain Yes: Improve pain at worst to 2-3/10 to improve overall QOL Outpatient Therapy Plan of Care Treatment Plan May Include Therapeutic Exercise Including Home Yes Exercise Program Manual Therapy Techniques Yes Neuromuscular Re-education Yes Therapeutic Activities to Return to Yes Previous Functional/Work Level Gait Training Yes ADL/Self Care Education Yes Mechanical Traction Yes Dry Needling Yes Thermal Modalities Yes Electrical Stimulation Yes Ultrasound/Phonophoresis Yes Iontophoresis Yes Orthotics/Bracing/Splinting Yes Vasopneumatic Compression Pump Yes Massage Yes Manual Lymphatic Drainage Yes Eval/Re-Eval Yes Frequency Times per week 2 Duration Number of Weeks 4-6 Addendums This patient is a candidate for social No or vocational rehab? Patient/Guardian verbally acknowledges Yes understanding of treatment program and consents to further treatment? Patient/Guardian verbally acknowledges Yes understanding of diagnosis, prognosis and goals for treatment? Eval Complexity PT Charges 15442 - Moderate Complexity Shoulder/Elbow Eval Shoulder Objective Measurements Elbow Objective Measurements PHYSICIAN CERTIFICATION: I certify the specified therapy services for Nellie Alves are required, authorized, and reviewed every 30 days.
== END 2024-04-09 10:35 | disposition home or self-care (01) ==
LOC: PT 10:31
PROVIDERS: Visit Provider Nurse Practitioner Family
DX: M25.471 Effusion, right ankle (principal)
CPT/HCPCS: 97163

== ENCOUNTER 2024-04-10 08:04 | Outpatient (CLI) | payer MEDICAID, SELFPAY ==
--- NOTE | 2024-04-10 08:04 | MR_ITS ---
FINAL REPORT CLINICAL HISTORY: abnormal US of liver, fatty liver COMPARISON: Ultrasound of the abdomen dated 03/07/2024 FINDINGS: Multiplanar MR imaging of the abdomen was performed without and with contrast. Images of the liver reveal no evidence of mass or contrast-enhancement. There is a focus of signal loss in out of phase images in the posterior medial segment of the left hepatic lobe measuring 15 mm in size, consistent with focal fatty infiltration. No other hepatic abnormality is identified. There is no evidence of biliary ductal dilatation. There is a large gallstone in the neck of the gallbladder measuring 18 mm in diameter, with biliary sludge present. No other mass or adenopathy is identified. No abnormal fluid collection is seen. No abnormal contrast enhancement is seen on the postcontrast images. IMPRESSION: Compared with the ultrasound exam of 03/07/2024 there is no hepatic mass or contrast-enhancement. The focus of signal in the posterior medial segment of the left hepatic lobe represents an area of focal fatty infiltration. A large gallstone is present in the neck of the gallbladder measuring 18 mm in size, with sludge present. No biliary ductal dilatation is noted. Reviewed, Interpreted and Dictated by Foster Arnold III, MD Transcribed by Florence Martinez Authenticated and [facility]
[2024-04-10] MEDS: GADOTERIDOL INJ 20ML SYRINGE 17 ML IV (09:13)
[2024-04-10] MEDS: 0.9 % SODIUM CHLORIDE 50 ML VIAL 20 ML IV (09:14)
[2024-04-10] MEDS: SODIUM CHLORIDE 0.9% 10ML SYR (RAD ONLY) 10 ML IV (09:14)
== END 2024-04-10 23:59 | disposition home or self-care (01) ==
LOC: RAD 08:04
PROVIDERS: PCP Nurse Practitioner Family; Visit Provider Nurse Practitioner Family
DX: R93.2 Abnormal findings on diagnostic imaging of liver and biliary tract (principal)
CPT/HCPCS: 74183; A9576

== ENCOUNTER 2024-11-25 14:45 | Emergency (ER) | payer MEDICAID, SELFPAY ==
[2024-11-25 14:54] VITALS: BP 167/94; PULSE 105; RESP 18; TEMP 36.7; O2SAT 93; BMI 30.5
[2024-11-25 15:05] LABS: Coronavirus 19, PCR Not Detected (NotDetected); Influenza A, PCR Not Detected (NotDetected); Influenza B, PCR Not Detected (NotDetected)
--- NOTE | 2024-11-25 15:15 | XR_ITS ---
PROCEDURE INFORMATION: Exam: XR Chest Exam date and time: 11/25/2024 3:16 PM Age: 59 years old Clinical indication: Cough and shortness of breath; Additional info: SOA, cough productive, malaise TECHNIQUE: Imaging protocol: Radiologic exam of the chest. Views: 2 views. COMPARISON: CR XR CHEST PORTABLE 02/14/2024 12:33 PM FINDINGS: Lungs: There is a small nodular density overlying the inferolateral right lower lobe which appears not significantly changed when compared with prior study. This overlies the posterolateral 8th right rib, and likely corresponds to the partially calcified nodule seen in this region on prior chest CT dated 03/22/2023. Similarly, another nodular density overlying the inferior left lower lobe is stable when compared with 02/24/2023 and likely reflects the partially calcified nodule seen in this location on prior chest CT dated 03/22/2023. There is another nodular density overlying the inferomedial left lower lobe which is difficult to compare with prior study due to limited visualization. Can not exclude some change in size. This likely corresponds to the noncalcified nodule seen in this location on prior study. Recommend further evaluation with CT to ensure stability. No focal areas of consolidation. Pleural spaces: No pleural effusions. Negative for pneumothorax. Heart/Mediastinum: Cardiac silhouette and pulmonary vasculature are within range of normal. A cardiac valve/stent is present, as before. Vasculature: There is moderate atherosclerotic calcification of the coronary arteries versus coronary graft. Bones/joints: There is no evidence of acute fracture. IMPRESSION: 1. Two small nodular densities, 1 in the right lower lobe and the other in the left lower lobe, are stable compared to CT of 03/22/2023 suggesting benign process. 2. Another small nodular density overlying the inferomedial left lower lobe is difficult to compare with prior study due to limited visualization. Cannot confirm stability. This likely corresponds to the noncalcified nodule seen in this location on prior study. Recommend further evaluation with chest CT to ensure stability on a nonemergent basis.
[2024-11-25] MEDS: IPRATROPIUM/ALBUTEROL 3 ML NEB 9 ML IH (15:23)
[2024-11-25] MEDS: DEXAMETHASONE 4MG TABLET 10 MG PO (15:23)
[2024-11-25] MEDS: DOXYCYCLINE HYCL 100 MG TABLET PO (15:23)
--- NOTE | 2024-11-25 15:35 | ED_ITS ---
Discharge Plan Disposition Patient Disposition: Home, Self-Care Prescriptions Prescriptions: New doxycycline hyclate 100 mg capsule 100 mg PO BID 5 Days Qty: 10 0RF prednisone 20 mg tablet 40 mg PO DAILY 5 Days Qty: 10 0RF No Action (DME) nebulizers Misc See Rx Instructions .MEDSUPPLY Qty: 1 0RF Rx Instructions: As directed (DME) nebulizer accessories Kit See Rx Instructions .MEDSUPPLY Qty: 1 0RF Rx Instructions: As directed acetaminophen 325 mg capsule 650 mg PO QID PRN (Reason: fever or pain) Qty: 240 2RF ipratropium-albuterol 0.5 mg-3 mg(2.5 mg base)/3 mL solution for nebulization 3 ml INHALATION QID Qty: 90 1RF metoprolol tartrate 50 mg tablet 50 mg PO BID pantoprazole 40 mg tablet,delayed release (DR/EC) 40 mg PO DAILY bupropion HCl 150 mg tablet extended release 24 hr 150 mg PO DAILY furosemide 20 mg tablet 20 mg PO DAILY Qty: 30 5RF clopidogrel 75 mg tablet 75 mg PO DAILY Qty: 30 3RF Trelegy Ellipta 100-62.5-25 mcg blister with device See Rx Instructions .ROUTE .COMPLEX Qty: 60 3RF Dose Instruction: Inhale 1 Puff into the lungs once daily. Rx Instructions: Inhale 1 Puff into the lungs once daily. aspirin 81 mg tablet,chewable See Rx Instructions .ROUTE .COMPLEX Qty: 30 2RF Dose Instruction: Chew and Swallow 1 Tablet by mouth once daily. Rx Instructions: Chew and Swallow 1 Tablet by mouth once daily. trazodone 50 mg tablet See Rx Instructions .ROUTE .COMPLEX Qty: 30 2RF Dose Instruction: Take 1 Tablet by mouth once daily. Rx Instructions: Take 1 Tablet by mouth once daily. albuterol sulfate [Ventolin HFA] 90 mcg/actuation HFA aerosol inhaler See Rx Instructions .ROUTE .COMPLEX Qty: 18 2RF Dose Instruction: Inhale 2 Puffs into the lungs every 4 to 6 hours as needed for shortness of breath or wheezing. Rx Instructions: Inhale 2 Puffs into the lungs every 4 to 6 hours as needed for shortness of breath or wheezing. atorvastatin 80 mg tablet See Rx Instructions .ROUTE .COMPLEX Qty: 90 1RF Dose Instruction: TAKE 1 TABLET BY MOUTH AT BEDTIME NIGHTLY FOR HYPERLIPIDEMIA Rx Instructions: TAKE 1 TABLET BY MOUTH AT BEDTIME NIGHTLY FOR HYPERLIPIDEMIA meloxicam 7.5 mg tablet 7.5 mg PO DAILY Qty: 30 0RF Referrals Follow up/Referrals: Sarah Alamo APRN [Primary Care Provider] - See instructions Activity Restrictions/Add. Instructions Additional Instructions/Restrictions: Call your family doctor to establish care for this visit to the emergency department and schedule follow-up within 48 hours to ensure improvement. If you have any worsening of your condition or any other concerning signs or symptoms, return to the emergency department or your primary care doctor for further evaluation. Prednisone each day after waking up. Doxycycline twice daily for 5 days. Be sure to stay out of direct sunlight for prolonged times because doxycycline can cause you to get bad sunburns Clinical Impressions Clinical Impression: Acute exacerbation of chronic obstructive pulmonary disease, Right upper lobe pneumonia Print Language Print Language: Greek Discharge ED Provider: Matthew Sol General Adult HPI General Chief complaint: Upper Respiratory Infection Stated complaint: cough, congestion, headache, body aches Time Seen by Provider: 11/25/24 15:03 Mode of Arrival: Ambulatory Source of Information: Patient Description of Symptoms (Recalled from ER Triage Doc. by RN): Pt presents for evaluation of cough, chest/nose congestion, and headache x 1 month. History of Present Illness HPI narrative: Please note that above description of symptoms, in this electronic medical record under categorization of recalled from ER triage doctor by RN are reflective of an initial nursing assessment, however, is not reflective of my full history and physical exam that was personally taken and clarified. Consequentially, this preceding description of symptoms, which may include the patient's categorized chief complaint in the EMR, do not reflect my personal clinical impression, and the ultimate description of history of present illness and patient stated complaints should be deferred to this section of the note. Unless stated otherwise or congruent with this section of the note, additional signs, symptoms, or incongruence should be interpreted as inaccurate with my clinical impression. Related Data Home Medications ?Medication ?Instructions ?Recorded ?Confirmed bupropion HCl 150 mg 24 hr tablet, 150 mg PO DAILY to stop smoking 03/21/24 04/20/24 extended release metoprolol tartrate 50 mg tablet 50 mg PO BID 03/21/24 04/20/24 pantoprazole 40 mg tablet,delayed 40 mg PO DAILY 03/21/24 04/20/24 release Previous Rx's ?Medication ?Instructions ?Recorded nebulizer accessories #1 ea 03/22/23 nebulizers #1 ea 03/22/23 acetaminophen 325 mg capsule 650 mg (2 x 325 mg) PO QID PRN 11/11/23 fever or pain #240 caps ipratropium 0.5 mg-albuterol 3 mg 3 ml inhalation QID COPD #90 mL 11/11/23 (2.5 mg base)/3 mL nebulization soln furosemide 20 mg tablet 20 mg PO DAILY #30 tabs 03/22/24 clopidogrel 75 mg tablet 75 mg PO DAILY #30 tabs 03/23/24 Trelegy Ellipta 100 mcg-62.5 See Rx Instructions .Route 04/20/24 mcg-25 mcg powder for inhalation .COMPLEX #60 ea ([id number]) Ventolin HFA 90 mcg/actuation See Rx Instructions .Route 05/04/24 aerosol inhaler (albuterol sulfate) .COMPLEX #18 grams aspirin 81 mg chewable tablet See Rx Instructions .Route 05/04/24 .COMPLEX #30 tabs atorvastatin 80 mg tablet See Rx Instructions .Route 05/04/24 .COMPLEX #90 tabs trazodone 50 mg tablet See Rx Instructions .Route 05/04/24 .COMPLEX #30 tabs meloxicam 7.5 mg tablet 7.5 mg PO DAILY #30 tabs 07/02/24 doxycycline hyclate 100 mg capsule 100 mg PO BID 5 days #10 caps 11/25/24 prednisone 20 mg tablet 40 mg (2 x 20 mg) PO DAILY 5 days 11/25/24 #10 tabs Allergies Allergy/AdvReac Type Severity Reaction Status Date / Time codeine Allergy Rash Verified 11/25/24 14:58 [facility] Disclaimer: The information contained in this section may have been updated after the patient was seen, as this information can be updated by other users. Medical History Hypertension Atypical angina Dyspnea Abnormal ECG Pain in right lower leg Edema of right lower leg Dizziness Sore throat Dysuria URI, acute Encounter for immunization Sleep disorder Cholelithiasis Anxiety CAD (coronary artery disease) Hypomagnesemia Impetigo Family history of seizure in brother Murmur GERD (gastroesophageal reflux disease) COPD exacerbation Palpitation Screening, lipid Screening for diabetes mellitus MVP (mitral valve prolapse) Pre-syncope Chest pain Surgical History S/P TAVR (transcatheter aortic valve replacement) History of heart artery stent S/P AVR (aortic valve replacement) Social History Smoking Status: Current every day smoker alcohol intake: never substance use type: denies use current occupational status: unemployed Travel in the last 8 weeks: None Have you lived/traveled outside [place] in past 30 days?: No Contact w/someone who lives/traveled outside [place] past 30 days?: No Exposure to someone with infectious disease in past 14 days?: No Do you have a fever (greater than 100.4 F or 38 C)?: No Have you tested positive for COVID-19: No Exposed to someone with COVID-19 in past 14 days?: No Do you have a sore throat?: No Do you have a cough?: Yes Do you have any weakness?: No Do you have any diarrhea?: No Are you experiencing any unusual bleeding?: No Do you have any muscle aches/pain?: Yes Do you have any abdominal pain?: No Are you experiencing loss of taste or smell?: No Other Medical History Have you received the Flu Vaccine for this season: No Have you received the Pneumonia Vaccine: No ROS Obtained: Yes All systems reviewed & no additional complaints except as documented Physical Exam General General appearance: alert Head Head exam: atraumatic and normocephalic Eye Eye exam: Present normal appearance, PERRL and EOMI Neck Neck exam: Present normal inspection, full ROM and trachea midline Respiratory Respiratory exam: Present wheezes and other (Wheezes heard throughout expiration, intermittent coughing); Absent respiratory distress, stridor, accessory muscle use or prolonged expiratory phase Cardiovascular Cardiovascular exam: Present normal rhythm, tachycardia and other (Pulses equal symmetric in upper and lower extremities) Abdominal Exam Abdominal exam: Present soft; Absent distention, tenderness or pulsatile mass Extremities Exam Extremities exam: Absent edema Neurological Exam Neurological exam: Present alert, oriented X3 and CN II-XII intact; Absent motor sensory deficit Skin Skin exam: Present warm and dry; Absent diaphoresis or erythema Medical Decision Making Medical Records Medical records reviewed: Yes I reviewed the patient's medical records. Screening: Per USPSTF and CDC recommendations, given the prevalence of disease in our region, it is our hospital?s policy to screen for HIV and viral Hepatitis for all patients aged 18 and over and those with ongoing risk factors. Cristóbal Inquiry Pt receiving controlled substance: No Cristóbal was queried for this patient: No Vital Signs: 11/25/24 14:54 Temperature 98.1 F Temperature Source Oral Pulse Rate [Right] 105 H Respiratory Rate 18 Blood Pressure [Right Arm] 167/94 H Blood Pressure Mean [Right Arm] 118 Blood Pressure Source [Right Arm] Automatic Cuff Blood Pressure Position [Right Arm] Sitting 02 Sat by Pulse Oximetry 93 L Oxygen Delivery Method Room Air Lab Data Lab Results 11/25/24 14:58: SARS-CoV-2 (PCR) Not detected, Influenza A Untype (PCR) Not detected, Influenza Type B (PCR) Not detected Orders (Tests/Meds): ED MEDICATIONS Discontinued Medications Generic Name Dose Route Start Last Admin Trade Name Freq PRN Reason Stop Dose Admin Albuterol/Ipratropium 9 ml 11/25/24 15:15 11/25/24 15:23 Ipratropium/Albuterol 3 Ml Neb IH 11/25/24 15:16 9 ml ONCE ONE Administration Dexamethasone 10 mg 11/25/24 15:15 11/25/24 15:23 Dexamethasone 4mg Tablet PO 11/25/24 15:16 10 mg ONCE ONE Administration Doxycycline Hyclate 100 mg 11/25/24 15:16 11/25/24 15:23 Doxycycline Hycl 100 Mg Tablet PO 11/25/24 15:17 100 mg ONCE ONE Administration ORDERS Category Date Time Status CXR 2 view (NOT portable) [XR chest 2V] Stat Exams 11/25/24 15:15 Taken Rapid PCR Covid and Flu A/B Stat Lab 11/25/24 14:58 Completed Medical Decision Narrative: 59-year-old female presenting with cough. She has a history of hypertension, hyperlipidemia, CAD, COPD not on home O2, still smoking 1/2 ppd. States that she has had a cough for about a month, but over the past couple days it has become productive of thick, white sputum, different than her baseline cough. has had 1 episode of chills, has not taken any meds for this other than mucinex, which seems to help her cough up more sputum she feels shed has been feeling in her chest. Associted with post-tussive emesis with no other associated symptoms including SOA, CP, syncope, etc. History was obtained via conversation with Patient. On arrival, patient hemodynamically stable, alert, oriented x4, appropriate, GCS 15, moving all extremities spontaneously, pupils equal and reactive to light. Full physical exam performed and significant for well- appearing female intermittently having coughing fits. Not producing anything on exam. Bilateral wheezing throughout expiration but no evidence of examination, increased work of breathing, etc. Cardiac exam normal other than mild tachycardia. Saturating appropriately. Differential includes COPD exacerbation, PNA, PTX, among others. Patient placed on continuous cardiac monitoring and continuous pulse ox with initial blood pressure 167/94, heart rate 105, saturation 93 ORA. Patient was given doxycycline and prednisone for symptomatic management and correction of underlying abnormalities. Workup independently interpreted and significant for patient has developing right upper lobe pneumonia and bronchial inflammation. On reevaluation, patient's lungs are much more clear, only has end expiratory wheezes. States that the nebulizers made her feel anxious and shaky, abundance of reassurance was offered. She does states that she is breathing better and feels better from a respiratory standpoint. Given patient presentation, workup, history, this most likely represents COPD exacerbation and right upper lobe pneumonia. Because patient at baseline without signs or symptoms of clinical decompensation, deemed appropriate for discharge. Results were relayed to patient who voiced understanding and were agreeable to outpatient management and follow up. I discussed my clinical impression with patient and answered all questions. At this time, the evidence for any other entities in the differential is insufficient to warrant any further testing or ED observation. This was explained as well. Advisory was given that persistent or worsening s ymptoms require further evaluation. I confirmed the understanding of this discussion. Licensing Director disclaimer Much of this encounter note is an electronic esol instructor spoken language to printed text. Electronic esol instructor of the spoken language may permit errors. Although I have reviewed the note, some errors may still exist. Critical Care Critical Care Time Critical Care Time: No
[2024-11-25 17:00] VITALS: BP 162/70; PULSE 92; RESP 18; TEMP 36.7; O2SAT 97
== END 2024-11-25 17:00 | disposition home or self-care (01) ==
PROVIDERS: Emergency Provider Emergency Medicine; PCP Nurse Practitioner Family
DX: J18.9 Pneumonia, unspecified organism (principal); J44.1 Chronic obstructive pulmonary disease with (acute) exacerbation; R05.9 Cough, unspecified; R09.81 Nasal congestion; R51.9 Headache, unspecified; M79.10 Myalgia, unspecified site; R09.89 Other specified symptoms and signs involving the circulatory and respiratory systems; I10 Essential (primary) hypertension; E78.5 Hyperlipidemia, unspecified; I25.10 Atherosclerotic heart disease of native coronary artery without angina pectoris; Z72.0 Tobacco use
CPT/HCPCS: 71046; 87636; 99283; J7620; J8540

== ENCOUNTER 2025-01-03 12:33 | Emergency (ER) | payer MEDICAID, SELFPAY ==
[2025-01-03] VITALS (9 sets, daily range): BP systolic 114–139; BP diastolic 69–83; PULSE 85–108; RESP 15–31; TEMP 36.8–37; O2SAT 88–95; BMI 31.8
--- NOTE | 2025-01-03 12:33 | ED_ITS ---
Discharge Plan Disposition Patient Disposition: Home, Self-Care Condition: Good Prescriptions Prescriptions: New ondansetron 4 mg tablet,disintegrating 4 mg PO QID PRN (Reason: nausea and vomiting) Qty: 10 0RF No Action (DME) nebulizers Misc See Rx Instructions .MEDSUPPLY Qty: 1 0RF Rx Instructions: As directed (DME) nebulizer accessories Kit See Rx Instructions .MEDSUPPLY Qty: 1 0RF Rx Instructions: As directed acetaminophen 325 mg capsule 650 mg PO QID PRN (Reason: fever or pain) Qty: 240 2RF ipratropium-albuterol 0.5 mg-3 mg(2.5 mg base)/3 mL solution for nebulization 3 ml INHALATION QID Qty: 90 1RF metoprolol tartrate 50 mg tablet 50 mg PO BID pantoprazole 40 mg tablet,delayed release (DR/EC) 40 mg PO DAILY bupropion HCl 150 mg tablet extended release 24 hr 150 mg PO DAILY furosemide 20 mg tablet 20 mg PO DAILY Qty: 30 5RF clopidogrel 75 mg tablet 75 mg PO DAILY Qty: 30 3RF Trelegy Ellipta 100-62.5-25 mcg blister with device See Rx Instructions .ROUTE .COMPLEX Qty: 60 3RF Dose Instruction: Inhale 1 Puff into the lungs once daily. Rx Instructions: Inhale 1 Puff into the lungs once daily. aspirin 81 mg tablet,chewable See Rx Instructions .ROUTE .COMPLEX Qty: 30 2RF Dose Instruction: Chew and Swallow 1 Tablet by mouth once daily. Rx Instructions: Chew and Swallow 1 Tablet by mouth once daily. trazodone 50 mg tablet See Rx Instructions .ROUTE .COMPLEX Qty: 30 2RF Dose Instruction: Take 1 Tablet by mouth once daily. Rx Instructions: Take 1 Tablet by mouth once daily. albuterol sulfate [Ventolin HFA] 90 mcg/actuation HFA aerosol inhaler See Rx Instructions .ROUTE .COMPLEX Qty: 18 2RF Dose Instruction: Inhale 2 Puffs into the lungs every 4 to 6 hours as needed for shortness of breath or wheezing. Rx Instructions: Inhale 2 Puffs into the lungs every 4 to 6 hours as needed for shortness of breath or wheezing. atorvastatin 80 mg tablet See Rx Instructions .ROUTE .COMPLEX Qty: 90 1RF Dose Instruction: TAKE 1 TABLET BY MOUTH AT BEDTIME NIGHTLY FOR HYPERLIPIDEMIA Rx Instructions: TAKE 1 TABLET BY MOUTH AT BEDTIME NIGHTLY FOR HYPERLIPIDEMIA meloxicam 7.5 mg tablet 7.5 mg PO DAILY Qty: 30 0RF doxycycline hyclate 100 mg capsule 100 mg PO BID 5 Days Qty: 10 0RF prednisone 20 mg tablet 40 mg PO DAILY 5 Days Qty: 10 0RF Referrals Follow up/Referrals: Foster Monique MD [Staff Physician] - See instructions Activity Restrictions/Add. Instructions Additional Instructions/Restrictions: I am referring you to general surgery as you have a gallstone in your gallbladder but currently have no evidence of obstruction but may need to have it removed at some point. You are able to tolerate oral intake prior to discharge however should your symptoms return I have sent a antinausea medication in and should they worsen you can return to the ER as needed. Clinical Impressions Clinical Impression: Nausea vomiting and diarrhea Instructions Patient Instructions: DI for Acute Abdominal Pain Print Language Print Language: Belarusian Discharge ED Provider: Matthew Sol General Adult HPI <CHARISSA Naranjo - Last Filed: 01/03/25 17:40> General Chief complaint: Abdominal Pain Stated complaint: Abd Pain Time Seen by Provider: 01/03/25 12:34 History of Present Illness HPI narrative: Patient presents for evaluation of abdominal pain and diarrhea since yesterday. Patient states that she began having crampy abdominal pain and started having watery diarrhea yesterday. Patient reports that she has been unable to keep anything down today. She denies any hemoptysis hematochezia melena emesis hematuria. Patient states that she was recently treated for a pneumonia approximately 2 weeks ago with outpatient management and did feel like she got better. Related Data Home Medications ?Medication ?Instructions ?Recorded ?Confirmed bupropion HCl 150 mg 24 hr tablet, 150 mg PO DAILY to stop smoking 03/21/24 04/20/24 extended release metoprolol tartrate 50 mg tablet 50 mg PO BID 03/21/24 04/20/24 pantoprazole 40 mg tablet,delayed 40 mg PO DAILY 03/21/24 04/20/24 release Previous Rx's ?Medication ?Instructions ?Recorded nebulizer accessories #1 ea 03/22/23 nebulizers #1 ea 03/22/23 acetaminophen 325 mg capsule 650 mg (2 x 325 mg) PO QID PRN 11/11/23 fever or pain #240 caps ipratropium 0.5 mg-albuterol 3 mg 3 ml inhalation QID COPD #90 mL 11/11/23 (2.5 mg base)/3 mL nebulization soln furosemide 20 mg tablet 20 mg PO DAILY #30 tabs 03/22/24 clopidogrel 75 mg tablet 75 mg PO DAILY #30 tabs 03/23/24 Trelegy Ellipta 100 mcg-62.5 See Rx Instructions .Route 04/20/24 mcg-25 mcg powder for inhalation .COMPLEX #60 ea ([id number]) Ventolin HFA 90 mcg/actuation See Rx Instructions .Route 05/04/24 aerosol inhaler (albuterol sulfate) .COMPLEX #18 grams aspirin 81 mg chewable tablet See Rx Instructions .Route 05/04/24 .COMPLEX #30 tabs atorvastatin 80 mg tablet See Rx Instructions .Route 05/04/24 .COMPLEX #90 tabs trazodone 50 mg tablet See Rx Instructions .Route 05/04/24 .COMPLEX #30 tabs meloxicam 7.5 mg tablet 7.5 mg PO DAILY #30 tabs 07/02/24 doxycycline hyclate 100 mg capsule 100 mg PO BID 5 days #10 caps 11/25/24 prednisone 20 mg tablet 40 mg (2 x 20 mg) PO DAILY 5 days 11/25/24 #10 tabs ondansetron 4 mg disintegrating 4 mg PO QID PRN nausea and 01/03/25 tablet vomiting #10 tabs Allergies Allergy/AdvReac Type Severity Reaction Status Date / Time codeine Allergy Rash Verified 11/25/24 14:58 [facility] <CHARISSA Naranjo - Last Filed: 01/03/25 17:40> [facility] Disclaimer: The information contained in this section may have been updated after the patient was seen, as this information can be updated by other users. Medical History Hypertension Atypical angina Dyspnea Abnormal ECG Pain in right lower leg Edema of right lower leg Dizziness Sore throat Dysuria URI, acute Encounter for immunization Sleep disorder Cholelithiasis Anxiety CAD (coronary artery disease) Hypomagnesemia Impetigo Family history of seizure in brother Murmur GERD (gastroesophageal reflux disease) COPD exacerbation Palpitation Screening, lipid Screening for diabetes mellitus MVP (mitral valve prolapse) Pre-syncope Chest pain Surgical History S/P TAVR (transcatheter aortic valve replacement) History of heart artery stent S/P AVR (aortic valve replacement) Social History Smoking Status: Current every day smoker alcohol intake: never substance use type: denies use current occupational status: unemployed Travel in the last 8 weeks?: None Have you lived/traveled outside US in past 30 days?: No Contact w/someone who lives/traveled outside US past 30 days?: No Exposure to someone with infectious disease in past 14 days?: No Do you have a fever (greater than 100.4 F or 38 C)?: No Have you tested positive for COVID-19?: No Exposed to someone with COVID-19 in past 14 days?: No Do you have a sore throat?: No Do you have a cough?: No Do you have any weakness?: No Do you have any diarrhea?: No Are you experiencing any unusual bleeding?: No Do you have any muscle aches/pain?: No Do you have any abdominal pain?: Yes Are you experiencing loss of taste or smell?: No Other Medical History Have you received the Flu Vaccine for this season: No Have you received the Pneumonia Vaccine: No <CHARISSA Naranjo - Last Filed: 01/03/25 17:40> ROS Obtained: Yes Systems reviewed as appropriate & no additional complaints except as documented Physical Exam <CHARISSA Naranjo - Last Filed: 01/03/25 17:40> General General appearance: alert and in no apparent distress Respiratory Respiratory exam: Present normal lung sounds bilaterally Cardiovascular Cardiovascular exam: Present tachycardia Neurological Exam Neurological exam: Present alert and oriented X3 Medical Decision Making <CHARISSA Naranjo - Last Filed: 01/03/25 17:40> Medical Records Medical records reviewed: Yes I reviewed the patient's medical records. Screening: Per USPSTF and CDC recommendations, given the prevalence of disease in our region, it is our hospital?s policy to screen for HIV and viral Hepatitis for all patients aged 18 and over and those with ongoing risk factors. Cristóbal Inquiry Pt receiving controlled substance: No Vital Signs: 01/03/25 12:44 01/03/25 13:00 01/03/25 13:34 Temperature 98.6 F Temperature Source Oral Pulse Rate 98 H 107 H Pulse Rate [Left Radial] 108 H Respiratory Rate 20 17 31 H Blood Pressure 124/82 Blood Pressure [Right Arm] 139/83 Blood Pressure Mean [Right Arm] 101 02 Sat by Pulse Oximetry 92 L 95 88 L Oxygen Delivery Method Room Air Oxygen Flow Rate (LPM) 01/03/25 14:00 01/03/25 14:30 01/03/25 14:50 Temperature Temperature Source Pulse Rate 98 H 93 H 99 H Pulse Rate [Left Radial] Respiratory Rate 17 15 17 Blood Pressure 120/72 126/77 Blood Pressure [Right Arm] Blood Pressure Mean [Right Arm] 02 Sat by Pulse Oximetry 95 94 L 92 L Oxygen Delivery Method Nasal Cannula Oxygen Flow Rate (LPM) 01/03/25 15:00 01/03/25 15:30 01/03/25 15:44 Temperature 98.2 F Temperature Source Pulse Rate 91 H 85 87 Pulse Rate [Left Radial] Respiratory Rate 15 15 20 Blood Pressure 122/76 114/69 114/69 Blood Pressure [Right Arm] Blood Pressure Mean [Right Arm] 02 Sat by Pulse Oximetry 94 L 92 L Oxygen Delivery Method Nasal Cannula Nasal Cannula Room Air Oxygen Flow Rate (LPM) 2 2 Lab Data Lab results reviewed: Yes I reviewed the patient's lab results. Lab Results 01/03/25 12:31: Urine Color Yellow, Urine Appearance Sl cloudy, Urine pH 6.0, Ur Specific [place] 1.015, Urine Protein Trace, Urine Glucose (UA) Negative, Urine Ketones 1+, Urine Blood Negative, Urine Nitrate Positive A, Urine Bilirubin Negative, Urine Urobilinogen 0.2, Ur Leukocyte Esterase Trace, Urine RBC None, Urine WBC 3-5, Ur Squamous Epith Cells 20-50, Urine Bacteria 1+ 01/03/25 12:40: WBC 14.1 H, RBC 5.86 H, Hgb 18.1 H, Hct 53.5 H, MCV 91.3, MCH 30.9, MCHC 33.8, RDW 15.2, Plt Count 194, MPV 9.5, Neut % (Auto) 77.6, Lymph % (Auto) 12.8, [place] % (Auto) 7.9, Eos % (Auto) 0.6, Baso % (Auto) 0.8, Neut # (Auto) 10.9 H, Lymph # (Auto) 1.8, [place] # (Auto) 1.1 H, Eos # (Auto) 0.1, Baso # (Auto) 0.1, Sodium 135 L, Potassium 3.6, Chloride 100, Carbon Dioxide 30, Anion Gap 8.6, BUN 5 L, Creatinine 0.40 L, Estimated Creat Clear 195, Estimated GFR 163, Est GFR ( Amer) 198, Glucose 144 H, Lactate 1.7, Calcium 9.0, Magnesium 1.8, Total Bilirubin 0.8, AST 85 H, ALT 92 H, Alkaline Phosphatase 117, Total Protein 6.8, Albumin 4.3, Globulin 2.5, Albumin/Globulin Ratio 1.7, Lipase 80, Procalcitonin 0.118 01/03/25 12:40 01/03/25 12:40 Orders (Tests/Meds): ED MEDICATIONS Discontinued Medications Generic Name Dose Route Start Last Admin Trade Name Freq PRN Reason Stop Dose Admin Sodium Chloride 1,000 mls @ 999 mls/hr 01/03/25 12:43 01/03/25 13:07 Sod Chlor 0.9% 1000ml Bag IV 01/03/25 13:43 999 mls/hr .Q1H1M ONE Administration Iopamidol 75 ml 01/03/25 13:29 01/03/25 13:30 Iopamidol-370 (76%);100ml Bottle IV 01/03/25 13:30 75 ml ONCE ONE Administration Ketorolac Tromethamine 15 mg 01/03/25 12:43 01/03/25 13:07 Ketorolac 30mg/Ml Vial IV 01/03/25 12:44 15 mg ONCE ONE Administration Ondansetron HCl 4 mg 01/03/25 12:43 01/03/25 13:07 Ondansetron 4mg/2ml Vial IV 01/03/25 12:44 4 mg ONCE ONE Administration Sodium Chloride 10 ml 01/03/25 13:29 01/03/25 13:30 Sodium Chloride 0.9% 10ml Syr (Rad Only) IV 01/03/25 13:30 10 ml ONCE ONE Administration ORDERS Category Date Time Status CT abdomen pelvis w con Stat Cat Scan 01/03/25 12:43 Completed CBC w/Auto Diff [Complete Blood Count Auto Diff] Stat Lab 01/03/25 12:40 Completed CMP [Comprehensive Metabolic Panel] Stat Lab 01/03/25 12:40 Completed Lactic Acid Stat Lab 01/03/25 12:40 Completed Lipase Stat Lab 01/03/25 12:40 Completed Magnesium Stat Lab 01/03/25 12:40 Completed Procalcitonin Stat Lab 01/03/25 12:40 Completed UA [Urinalysis and Microscopic] Stat Lab 01/03/25 12:31 Completed Urine Culture Stat Micro 01/03/25 12:31 Received Medical Decision Narrative: In summary patient is a 59-year-old female who presents to the emergency department for evaluation of abdominal pain nausea vomiting diarrhea. Patient is initially normotensive at 139/83 tachycardic at 108 but sinus tachycardia on bedside monitor breathing 20 times a minute satting at 92% initially on room air upon arrival, afebrile at 98.6. Physical exam is remarkable for mild diffuse abdominal tenderness but there is no rebound or guarding no rigidity. Bowel sounds are normal active. Breath sounds clear and equal bilateral to the bases without adventitious sounds.. Differential diagnosis includes enteritis versus C. difficile versus diverticulitis versus cholecystitis versus pancreatitis etc. Initial workup will be conducted with hematologic labs CT scan abdomen pelvis urinalysis. Initial interventions include crystalloid bolus Zofran Toradol Tylenol. Initial workup reviewed by me and her white count is 14.1 but her hemoglobin hematocrit are 18.1 and 53.5 respectively suggesting volume contraction with an absolute neutrophil count of 10.9 sodium 135 BUN is 5 creatinine 0.4 lipase is 80 and procalcitonin is 0.118 urinalysis shows 1+ nitrate 1+ ketones trace leukocyte esterase however microscopic exam shows no red blood cells 3-5 white cells 20-50 epithelial cells and only 1+ bacteria suggesting contamination. Patient has no urinary tract symptoms will await urine culture and speciation before prescribing antibiotics. My informal interpretation of her CT imaging shows a very large gallstone in the gallbladder however there is no wall thickening pericholecystic fluid and thickening of the bowel loops suggestive of enteritis prior to radiology read. Please see final read for formal interpretation. Upon repeat evaluation patient reported significant improvement in her symptoms after initial intervention and is actually tolerating oral intake now without nausea or vomiting or abdominal pain patient was unable to provide a stool specimen however.. Given this patient is appropriate for discharge with prescription for Zofran and close follow-up with her PCP for continued new or worsening signs or symptoms or return to the ER as needed. <Matthew Sol MD - Last Filed: 01/04/25 07:16> Vital Signs: 01/03/25 12:44 01/03/25 13:00 01/03/25 13:34 Temperature 98.6 F Temperature Source Oral Pulse Rate 98 H 107 H Pulse Rate [Left Radial] 108 H Respiratory Rate 20 17 31 H Blood Pressure 124/82 Blood Pressure [Right Arm] 139/83 Blood Pressure Mean [Right Arm] 101 02 Sat by Pulse Oximetry 92 L 95 88 L Oxygen Delivery Method Room Air Oxygen Flow Rate (LPM) 01/03/25 14:00 01/03/25 14:30 01/03/25 14:50 Temperature Temperature Source Pulse Rate 98 H 93 H 99 H Pulse Rate [Left Radial] Respiratory Rate 17 15 17 Blood Pressure 120/72 126/77 Blood Pressure [Right Arm] Blood Pressure Mean [Right Arm] 02 Sat by Pulse Oximetry 95 94 L 92 L Oxygen Delivery Method Nasal Cannula Oxygen Flow Rate (LPM) 01/03/25 15:00 01/03/25 15:30 01/03/25 15:44 Temperature 98.2 F Temperature Source Pulse Rate 91 H 85 87 Pulse Rate [Left Radial] Respiratory Rate 15 15 20 Blood Pressure 122/76 114/69 114/69 Blood Pressure [Right Arm] Blood Pressure Mean [Right Arm] 02 Sat by Pulse Oximetry 94 L 92 L Oxygen Delivery Method Nasal Cannula Nasal Cannula Room Air Oxygen Flow Rate (LPM) 2 2 Lab Data Lab Results 01/03/25 12:31: Urine Color Yellow, Urine Appearance Sl cloudy, Urine pH 6.0, Ur Specific [place] 1.015, Urine Protein Trace, Urine Glucose (UA) Negative, Urine Ketones 1+, Urine Blood Negative, Urine Nitrate Positive A, Urine Bilirubin Negative, Urine Urobilinogen 0.2, Ur Leukocyte Esterase Trace, Urine RBC None, Urine WBC 3-5, Ur Squamous Epith Cells 20-50, Urine Bacteria 1+ 01/03/25 12:40: WBC 14.1 H, RBC 5.86 H, Hgb 18.1 H, Hct 53.5 H, MCV 91.3, MCH 30.9, MCHC 33.8, RDW 15.2, Plt Count 194, MPV 9.5, Neut % (Auto) 77.6, Lymph % (Auto) 12.8, [place] % (Auto) 7.9, Eos % (Auto) 0.6, Baso % (Auto) 0.8, Neut # (Auto) 10.9 H, Lymph # (Auto) 1.8, [place] # (Auto) 1.1 H, Eos # (Auto) 0.1, Baso # (Auto) 0.1, Sodium 135 L, Potassium 3.6, Chloride 100, Carbon Dioxide 30, Anion Gap 8.6, BUN 5 L, Creatinine 0.40 L, Estimated Creat Clear 195, Estimated GFR 163, Est GFR ( Amer) 198, Glucose 144 H, Lactate 1.7, Calcium 9.0, Magnesium 1.8, Total Bilirubin 0.8, AST 85 H, ALT 92 H, Alkaline Phosphatase 117, Total Protein 6.8, Albumin 4.3, Globulin 2.5, Albumin/Globulin Ratio 1.7, Lipase 80, Procalcitonin 0.118 Orders (Tests/Meds): ED MEDICATIONS Discontinued Medications Generic Name Dose Route Start Last Admin Trade Name Freq PRN Reason Stop Dose Admin Sodium Chloride 1,000 mls @ 999 mls/hr 01/03/25 12:43 01/03/25 13:07 Sod Chlor 0.9% 1000ml Bag IV 01/03/25 13:43 999 mls/hr .Q1H1M ONE Administration Iopamidol 75 ml 01/03/25 13:29 01/03/25 13:30 Iopamidol-370 (76%);100ml Bottle IV 01/03/25 13:30 75 ml ONCE ONE Administration Ketorolac Tromethamine 15 mg 01/03/25 12:43 01/03/25 13:07 Ketorolac 30mg/Ml Vial IV 01/03/25 12:44 15 mg ONCE ONE Administration Ondansetron HCl 4 mg 01/03/25 12:43 01/03/25 13:07 Ondansetron 4mg/2ml Vial IV 01/03/25 12:44 4 mg ONCE ONE Administration Sodium Chloride 10 ml 01/03/25 13:29 01/03/25 13:30 Sodium Chloride 0.9% 10ml Syr (Rad Only) IV 01/03/25 13:30 10 ml ONCE ONE Administration ORDERS Category Date Time Status CT abdomen pelvis w con Stat Cat Scan 01/03/25 12:43 Completed CBC w/Auto Diff [Complete Blood Count Auto Diff] Stat Lab 01/03/25 12:40 Completed CMP [Comprehensive Metabolic Panel] Stat Lab 01/03/25 12:40 Completed Lactic Acid Stat Lab 01/03/25 12:40 Completed Lipase Stat Lab 01/03/25 12:40 Completed Magnesium Stat Lab 01/03/25 12:40 Completed Procalcitonin Stat Lab 01/03/25 12:40 Completed UA [Urinalysis and Microscopic] Stat Lab 01/03/25 12:31 Completed Urine Culture Stat Micro 01/03/25 12:31 Received Medical Decision Narrative: In summary patient is a 59-year-old female who presents to the emergency department for evaluation of abdominal pain nausea vomiting diarrhea. Patient is initially normotensive at 139/83 tachycardic at 108 but sinus tachycardia on bedside monitor breathing 20 times a minute satting at 92% initially on room air upon arrival, afebrile at 98.6. Physical exam is remarkable for mild diffuse abdominal tenderness but there is no rebound or guarding no rigidity. Bowel sounds are normal active. Breath sounds clear and equal bilateral to the bases without adventitious sounds.. Differential diagnosis includes enteritis versus C. difficile versus diverticulitis versus cholecystitis versus pancreatitis etc. Initial workup will be conducted with hematologic labs CT scan abdomen pelvis urinalysis. Initial interventions include crystalloid bolus Zofran Toradol Tylenol. Initial workup reviewed by me and her white count is 14.1 but her hemoglobin hematocrit are 18.1 and 53.5 respectively suggesting volume contraction with an absolute neutrophil count of 10.9 sodium 135 BUN is 5 creatinine 0.4 lipase is 80 and procalcitonin is 0.118 urinalysis shows 1+ nitrate 1+ ketones trace leukocyte esterase however microscopic exam shows no red blood cells 3-5 white cells 20-50 epithelial cells and only 1+ bacteria suggesting contamination. Patient has no urinary tract symptoms will await urine culture and speciation before prescribing antibiotics. My informal interpretation of her CT imaging shows a very large gallstone in the gallbladder however there is no wall thickening pericholecystic fluid and thickening of the bowel loops suggestive of enteritis prior to radiology read. Please see final read for formal interpretation. Upon repeat evaluation patient reported significant improvement in her symptoms after initial intervention and is actually tolerating oral intake now without nausea or vomiting or abdominal pain patient was unable to provide a stool specimen however.. Given this patient is appropriate for discharge with prescription for Zofran and close follow-up with her PCP for continued new or worsening signs or symptoms or return to the ER as needed. I was consulted by the DANIEL, and we discussed the complexity of the problems being addressed. I approved the treatment and management plan for this patient's care in the Emergency Department, thus performing a substantive portion of the medical decision making. Matthew Sol MD Critical Care <CHARISSA Naranjo - Last Filed: 01/03/25 17:40> Critical Care Time Critical Care Time: No
[2025-01-03 12:37] LABS: Microscopic, Urine URINE MICROSCOPIC (MICROSCOPIC)
[2025-01-03 12:38] LABS: Appearance,Urine SL CLOUDY (Clear); Blood, Urine Negative (Negative); Color,Urine YELLOW (Yellow); Glucose,Urine (UA) Negative (Negative); Ketones,Urine 1+ (Negative); Leukocyte Esterase,Urine TRACE (Negative); Nitrate,Urine POSITIVE (Negative); Protein,Urine TRACE (Negative); Specific Gravity, Urine 1.015 (1.005-1.030); Urobilinogen,Urine 0.2 EU/dl (0.2)
--- NOTE | 2025-01-03 12:43 | CT_ITS ---
FINAL REPORT TECHNIQUE: After the administration of intravenous contrast, axial images were obtained through the abdomen and pelvis by computed tomography. The study was performed with techniques to keep radiation dose as low as reasonably achievable, (ALARA). Individual dose reduction techniques using automated exposure control or adjustment of mA and/or kV according to the patient's size were employed. CLINICAL HISTORY: Abdominal pain, diarrhea, recent antibiotics COMPARISON: None FINDINGS: Abdomen: Scarring is noted at the left lung base. Calcified granulomas are seen in the left lower lobe. There is moderate diffuse fatty infiltration of the liver. A calcified gallstone is present in the neck of the gallbladder. The spleen, pancreas, adrenals and kidneys appear unremarkable. The aorta is normal in caliber. There is no free fluid or adenopathy. Pelvis: The appendix is unremarkable. There is mild mucosal thickening within multiple loops of small bowel, particularly bowel loops in the pelvis. This could be due to infectious or inflammatory enteritis. The urinary bladder is unremarkable. There is no free fluid or adenopathy. IMPRESSION: Fatty liver. Gallstone. Mild thickening of small-bowel loops. Reviewed, Interpreted and Dictated by Alexander Catherine MD Transcribed by Sherice Bell Authenticated and [facility]
[2025-01-03 12:49] LABS: Basophils # 0.1 K/mm3 (0-0.2); Basophils % 0.8 % (0.1-2.0); Eosinophils # 0.1 Kmm3 (0.0-0.4); Eosinophils % 0.6 % (0.1-12.0); Hematocrit 53.5 % (37.0-47.0); Lymphocytes # 1.8 K/mm3 (0.7-4.5); Lymphocytes % 12.8 % (10-50); Mean Corpuscular HGB Conc 33.8 g/dL (31.8-35.4); Mean Corpuscular Hemoglobin 30.9 pg (27.0-31.2); Mean Corpuscular Volume 91.3 fl (81-99); Mean Platelet Volume 9.5 fl (7.4-10.4); Monocytes # 1.1 K/mm3 (0.1-1.0); Monocytes % 7.9 % (1.7-9.3); Neutrophils # 10.9 K/mm3 (1.8-7.8); Neutrophils % 77.6 % (37.0-80.0); Nucleated Red Blood Cells # 0 10^3/uL; Nucleated Red Blood Cells % 0 %; Platelet Count 194 K/mm3 (142-424); Red Blood Count 5.86 M/mm3 (4.20-5.40); Red Cell Distribution Width 15.2 % (11.5-17.5); Red Cell Distribution Width-SD 49.7 fL; White Blood Count 14.1 K/mm3 (4.8-10.8)
[2025-01-03 12:52] LABS: Bilirubin,Urine Negative (Negative)
[2025-01-03 12:53] LABS: Bacteria,Urine 1+ /lpf; Squamous Epithelial Cell,Urine 20-50 #/hpf (0-5)
[2025-01-03] MEDS: 0.9 % SODIUM CHLORIDE 1000ML 1,000 ML 999 ML IV (13:07)
[2025-01-03] MEDS: KETOROLAC 30MG/ML VIAL 15 MG IV (13:07)
[2025-01-03] MEDS: ONDANSETRON 4MG/2ML VIAL 4 MG IV (13:07)
[2025-01-03 13:16] LABS: Lactic Acid 1.7 mmol/L (0.7-2.1)
[2025-01-03 13:17] LABS: Alanine Aminotransferase 92 U/L (12-78); Albumin Level 4.3 g/dl (3.5-5.0); Albumin/Globulin Ratio 1.7 (1.1-1.8); Alkaline Phosphatase 117 U/L (38-126); Anion Gap 8.6 mEq/L (5-15); Aspartate Amino Transferase 85 U/L (14-36); Bilirubin,Total 0.8 mg/dl (0.2-1.3); Blood Urea Nitrogen 5 mg/dl (7-17); Carbon Dioxide 30 mmol/L (22.0-30.0); Chloride 100 mmol/L (98-107); Creatinine Clearance Estimated 195 mL/min (50-200); Estimated Glomerular Filt Rate 163 ml/min (>60); GFR (African American) 198 ML/MIN (>60); Globulin 2.5 g/dL (1.3-3.2); Glucose 144 mg/dl (74-100); Lipase 80 U/L (23-300); Magnesium 1.8 mg/dl (1.6-2.3); Potassium 3.6 mmoL/L (3.5-5.1); Sodium 135 mmol/L (136-145); Total Protein,Serum 6.8 g/dl (6.3-8.2)
[2025-01-03 13:19] LABS: Hemoglobin 18.1 g/dL (12.2-16.2)
[2025-01-03] MEDS: SODIUM CHLORIDE 0.9% 10ML SYR (RAD ONLY) 10 ML IV (13:30)
[2025-01-03] MEDS: IOPAMIDOL-370 (76%);100ML BOTTLE 75 ML IV (13:30)
[2025-01-03 13:34] LABS: Procalcitonin 0.118 ng/mL (0.0-2.0)
--- NOTE | 2025-01-03 14:42 | PC.NURSE ---
Called radiology to check on ct read, Edith in Radiology states that it is locked on and reading now . Dre CARRINGTON notified of this.
--- NOTE | 2025-01-05 09:09 | PC.NURSE ---
I discussed the urine culture with Dr Brush. I called to check on pt and she is still having pelvic cramps , nausea, and night sweats/chills. I let her know we would like her to come back in for re-evaluation. Pt declined at this time. Dr Brush will send in ABX to [facility] in [place].
--- NOTE | 2025-01-05 10:17 | PC.NURSE ---
Dr Brush preferred to send in Cefpodoxime, however not pharmacy would have available today, in pt's surrounding area. Thus, Dr Brush would like to use Bactrim DS 1 tab PO BID for 3 days. I called this into [facility] in [place] to Pharmacist Estefania. Pt is notified that ABX was sent to this pharmacy.
== END 2025-01-03 15:45 | disposition home or self-care (01) ==
PROVIDERS: Physician Assistant; Emergency Provider Emergency Medicine; PCP Nurse Practitioner Family
DX: R10.84 Generalized abdominal pain (principal); R11.2 Nausea with vomiting, unspecified; R19.7 Diarrhea, unspecified
CPT/HCPCS: 74177; 80053; 81001; 83605; 83690; 83735; 84145; 85025; 87086; 87088; 87186; 96361; 96374; 96375; 99284; J1885; J2405; J7030; Q9967

== ENCOUNTER 2025-01-09 16:11 | Outpatient (CLI) | payer MEDICAID, SELFPAY ==
[2025-01-09 17:18] LABS: Basophils # 0.1 K/mm3 (0-0.2); Basophils % 1.4 % (0.1-2.0); Eosinophils # 0.1 Kmm3 (0.0-0.4); Eosinophils % 1.4 % (0.1-12.0); Immature Granulocytes # 0.02 10^3uL; Immature Granulocytes % 0.3 %; Lymphocytes # 1.8 K/mm3 (0.7-4.5); Lymphocytes % 29.3 % (10-50); Mean Corpuscular HGB Conc 33.3 g/dL (31.8-35.4); Mean Corpuscular Hemoglobin 30.5 pg (27.0-31.2); Mean Corpuscular Volume 91.5 fl (81-99); Mean Platelet Volume 9.3 fl (7.4-10.4); Monocytes # 0.6 K/mm3 (0.1-1.0); Neutrophils # 3.6 K/mm3 (1.8-7.8); Neutrophils % 58.6 % (37.0-80.0); Nucleated Red Blood Cells # 0 10^3/uL; Nucleated Red Blood Cells % 0 %; Platelet Count 196 K/mm3 (142-424); Red Blood Count 6.23 M/mm3 (4.20-5.40); Red Cell Distribution Width 15.1 % (11.5-17.5); Red Cell Distribution Width-SD 49.6 fL; White Blood Count 6.2 K/mm3 (4.8-10.8)
[2025-01-09 17:29] LABS: Hemoglobin 19.3 g/dL (12.2-16.2)
[2025-01-09 17:38] LABS: Alanine Aminotransferase 181 U/L (12-78); Albumin Level 4.6 g/dl (3.5-5.0); Albumin/Globulin Ratio 1.6 (1.1-1.8); Alkaline Phosphatase 165 U/L (38-126); Amylase 96 U/L (30-110); Anion Gap 11.7 mEq/L (5-15); Aspartate Amino Transferase 198 U/L (14-36); Bilirubin,Total 0.6 mg/dl (0.2-1.3); Blood Urea Nitrogen 6 mg/dl (7-17); Calcium 9.9 mg/dl (8.4-10.2); Carbon Dioxide 31 mmol/L (22.0-30.0); Chloride 99 mmol/L (98-107); Estimated Glomerular Filt Rate 126 ml/min (>60); GFR (African American) 153 ML/MIN (>60); Globulin 2.8 g/dL (1.3-3.2); Glucose 100 mg/dl (74-100); Lipase 92 U/L (23-300); Potassium 5.7 mmoL/L (3.5-5.1); Sodium 136 mmol/L (136-145); Total Protein,Serum 7.4 g/dl (6.3-8.2)
== END 2025-01-09 23:59 | disposition home or self-care (01) ==
LOC: LAB.DROPOF 01-10 11:19
PROVIDERS: PCP Nurse Practitioner Family; Visit Provider Nurse Practitioner Family
DX: J44.1 Chronic obstructive pulmonary disease with (acute) exacerbation (principal); K80.20 Calculus of gallbladder without cholecystitis without obstruction; R10.11 Right upper quadrant pain
CPT/HCPCS: 80053; 82150; 83690; 85025; 87070; 87205

== ENCOUNTER 2025-01-22 06:18 | Outpatient (CLI) | payer MEDICAID, SELFPAY ==
--- NOTE | 2025-01-22 07:00 | CT_ITS ---
FINAL REPORT CLINICAL HISTORY: lung cancer screening current smoker 1/2ppd x52 years COMPARISON: CTA chest 03/22/2023 FINDINGS: CT CHEST LOW DOSE SCREENING HISTORY: Screening exam for lung cancer. 59-year-old female, current smoker, 08-sosl-[id number] history DOSE: CTDI vol: 2.90 mGy, DLP: 96.38 mGy*cm TECHNIQUE: Axial CT without IV contrast administration using low dose protocol. This study was performed with techniques to keep radiation doses as low as reasonably achievable, (ALARA). Individualized dose reduction techniques using automated exposure control or adjustment of mA and/or kV according to the patient's size were employed. No acute lung disease is present. No pulmonary lesions are seen suspicious for neoplasm. Numerous calcified granulomas are present. No suspicious nodules are identified. Mild right middle lobe scarring is present. The patient has undergone an aortic valve repair since the prior CTA of the chest from 2022. 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 No pleural or pericardial effusion is seen. No adenopathy or mass lesion is present. IMPRESSION: No evidence of lung cancer Interval enlargement of the ascending aortic aneurysm with interval aortic valve repair, accounting for the S category. LUNG RADS CATEGORY 1S RECOMMENDATION: 12 month LDCT follow up Reviewed, Interpreted and Dictated by Chet Mistry MD Transcribed by Florence Martinez Authenticated and [facility]
--- NOTE | 2025-01-22 08:00 | US_ITS ---
FINAL REPORT TECHNIQUE: Multiple transverse and longitudinal images CLINICAL HISTORY: RUQ pain COMPARISON: 03/07/2024 FINDINGS: Fatty infiltration of the liver is present without evidence of a focal mass. There is a dominant gallstone in the neck of the gallbladder measuring up to 2.4 cm in size. No biliary ductal dilatation is noted, and there is no gallbladder wall thickening or pericholecystic fluid. Limited portions of the right kidney are unremarkable. IMPRESSION: Dominant gallstone in the neck of the gallbladder, measuring up to 2.4 cm in size, without evidence of gallbladder wall thickening, biliary ductal dilatation, or pericholecystic fluid. Fatty infiltration of the liver without evidence of a focal mass. Reviewed, Interpreted and Dictated by Chet Mistry MD Transcribed by Florence Martinez Authenticated and [facility]
== END 2025-01-22 23:59 | disposition home or self-care (01) ==
LOC: RAD 06:20
PROVIDERS: PCP Nurse Practitioner Family; Visit Provider Nurse Practitioner Family
DX: K80.20 Calculus of gallbladder without cholecystitis without obstruction (principal); K76.0 Fatty (change of) liver, not elsewhere classified; I71.21 Aneurysm of the ascending aorta, without rupture; R91.8 Other nonspecific abnormal finding of lung field; Z12.2 Encounter for screening for malignant neoplasm of respiratory organs; Z72.0 Tobacco use
CPT/HCPCS: 71271; 76705

== ENCOUNTER 2025-02-06 16:46 | Outpatient (CLI) | payer MEDICAID, SELFPAY ==
[2025-02-06 13:54] LABS: Alanine Aminotransferase 61 U/L (12-78); Albumin Level 3.9 g/dl (3.5-5.0); Albumin/Globulin Ratio 1.4 (1.1-1.8); Alkaline Phosphatase 98 U/L (38-126); Anion Gap 13.7 mEq/L (5-15); Aspartate Amino Transferase 64 U/L (14-36); Bilirubin,Total 0.6 mg/dl (0.2-1.3); Blood Urea Nitrogen 5 mg/dl (7-17); Calcium 8.5 mg/dl (8.4-10.2); Carbon Dioxide 28 mmol/L (22.0-30.0); Chloride 100 mmol/L (98-107); Estimated Glomerular Filt Rate 163 ml/min (>60); GFR (African American) 198 ML/MIN (>60); Globulin 2.7 g/dL (1.3-3.2); Glucose 90 mg/dl (74-100); Potassium 4.7 mmoL/L (3.5-5.1); Sodium 137 mmol/L (136-145); Total Protein,Serum 6.6 g/dl (6.3-8.2)
== END 2025-02-06 23:59 | disposition home or self-care (01) ==
LOC: LAB.DROPOF 16:46
PROVIDERS: PCP Nurse Practitioner Family; Visit Provider Nurse Practitioner Family
DX: K76.0 Fatty (change of) liver, not elsewhere classified (principal)
CPT/HCPCS: 36415; 80053

== ENCOUNTER 2025-02-19 15:01 | Outpatient (CLI) | payer MEDICAID, SELFPAY ==
--- OUTSIDE RECORDS SUMMARY | 2025-02-19 15:03 | XMS_ITS | Clinical Summary ---
Author Organization [facility] Address [address] [place] [address] Phone Care Team Providers Care Blow Down Helper Name Role Phone Sergio Hurtado MD Primary Care Provider [phone] Allergies Active Allergy Reactions Criticality Noted Date Comments Codeine Hives 06/06/2019 Vanilla Extract Flavor Hives,Itching 04/16/2023 Medications acetaminophen 325 mg Oral Tab Take 650 mg by mouth 2 times daily as needed for Pain. Active albuterol (PROVENTIL HFA;VENTOLIN HFA) 90 mcg/actuation Inhl HFA Aerosol Inhaler Inhale 2 Puffs into the lungs every 6 hours as needed for Wheezing or Shortness of Breath. Active atorvastatin (LIPITOR) 80 mg Oral Tablet Take 80 mg by mouth nightly. Active clopidogreL (PLAVIX) 75 mg Oral Tablet Take 75 mg by mouth daily. Active dextromethorpha n-guaiFENesin (MUCINEX DM) 30-600 mg Oral Tablet Sustained Release 12 hr Take 2 Tablets by mouth every 12 hours. Active fluticasone-ume clidin-vilanter (TRELEGY ELLIPTA) 100-62.5-25 mcg Inhl Disk with Device Inhale 1 Puff into the lungs daily. Active nicotine (NICODERM CQ) 21 mg/24 hr TD Patch [address] 1 Patch onto the skin daily. Active metoprolol (LOPRESSOR) 50 mg Oral Tablet Take 50 mg by mouth 2 times daily. Active aspirin 81 mg Oral Tablet, Chewable Take 1 Tablet by mouth daily. 30 Tablet 2 3 Active pantoprazole (PROTONIX) 40 mg Oral Tablet, Delayed Release (E.C.) Take 1 Tablet by mouth 2 times daily. 60 Tablet 08/12/202 3 Active Active Problems Problem Noted Date Diagnosed Date Coronary artery disease invo lving [place] coronary artery of [place] heart without angina pectoris 04/15/2023 Abdominal aortic aneurysm (AAA) without rupture 04/15/2023 Tobacco use 04/15/2023 COPD (chronic obstructive pulmonary disease) 07/2023 S/P TAVR (transcatheter aortic valve replacement ) 04/15/2023 Hyponatremia 04/15/2023 Acute pericarditis 04/15/2023 Acute chest pain 04/14/2023 Surgical History Surgery Date Site/Laterality Comments TONSILLECTOMY ORTHOPEDIC SURGERY Medical History Medical History Date Comments Arthritis Social History Tobacco Use Types Packs/Day Years Used Date Smoking Tobacco: Every Day Cigarettes 0.3 47.5 Started: 1977 Overall Financial Resource Strain (CARDIA) Answe r Date Recorded How hard is it for you to pa y for the very basics like food, housing, medical care, and heating? Very hard 04/15/2023 PHQ-2 Answer Date Recorded PHQ-2 Total Score 0 04/15/2023 Exercise Vital Sign Answer Date Recorde d On average, how many days pe r week do you engage in moderate to strenuous exercise (like a brisk walk)? 0 days 04/15/2023 On average, how many minutes do you engage in exercise at this level? 0 min 04/15/2023 Hunger Vital Sign Answer Date Recorded Within the past 12 months, y ou worried that your food would run out before you got the money to buy more. Sometimes true Within the past 12 months, t he food you bought just didn't last and you didn't have money to get more. Sometimes true 07/2023 PRAPARE - Transportation Answer Date Re corded In the past 12 months, has l ack of transportation kept you from medical appointments or from getting medications? Yes 04/05 In the past 12 months, has l ack of transportation kept you from meetings, work, or from getting things needed for daily living? Yes 04/15/2023 Comments Unknown Sex and Gender Information Value Date Recorded Sex Assigned at Not on file Legal Sex Female 10:55 AM EDT Gender Identity Not on file Sexual Orientation Not on file Obstetrics History Last Filed Vital Signs Vital Sign Reading Time Taken Comments Blood Pressure 108/70 05/26/2023 3:37 PM EDT Pulse 73 05/26/2023 3:37 PM EDT Temperature 36.6 C (97.8 F) 04/16/2023 12:15 PM EDT Respiratory Rate 18 04/16/2023 12:15 PM EDT Oxygen Saturation 96% 05/26/2023 3:37 PM EDT ra @ rest Inhaled Oxygen Concentration - - Weight 75.3 kg (166 lb) 05/26/2023 3:37 PM EDT Height 162.6 cm (5' 4 ) 04/15/2023 12:18 AM EDT Body Mass Index 28.49 04/15/2023 12:18 AM EDT Plan of Treatment Health Maintenance Due Date Last Done Comments Annual Wellness Exam 1968 DTaP/TDaP/Td (1 - Tdap) 1984 Hepatitis B Vaccine (1 of 3 - 19+ 3-dose series) 1984 Pneumococcal Vaccine 50+ (1 of 2 - PCV) 1984 Cervical Cancer Screening 1986 Pap Smear 1986 HPV/Pap Cotest 1995 Breast Cancer Screening 2005 Cologuard 2010 Colon Cancer Screening 2010 Colonoscopy 2010 FIT 2010 Sigmoidoscopy 2010 Virtual Colonography 2010 Zoster (1 of 2) 2015 COVID-19 Vaccine (3 - 2023-2 5 season) 2024 10/26/2021, 09/16/2021 Influenza Vaccine (Season Ended) 2025 06/28/2023 Meningococcal B Vaccine Aged Out No l onger eligible based on patient's age to complete this topic Insurance [facility] [id number] [facility] [place] [id number] [place] [id number] [facility] Advance Directives For more information, please contact: [phone] * Full Code (Latest Code Status on File) Date Activated Date Inactivated Comments 04/15/2023 12:50 AM 04/16/2023 9:26 PM Care Teams Blow Down Helper Relationship Specialty Start Date End Date Sergio Hurtado MD [address] [facility] [address] [place] [address] PCP - General Family Medicine 04/14/23
--- OUTSIDE RECORDS SUMMARY | 2025-02-19 15:03 | XMS_ITS | Encounter Summary ---
Author Organization Healthcare Address [address] [place] [id number] Care Team Providers Care Firewall Engineer Name Role Phone Pcp, No Primary Care Provider Unavailabl e Reason for Visit * Reason Comments Med Refill Encounter Details Date Type Department Care Team ([facility] st Contact Info) Description 05/03/2024 Refill [facility] [place] [address], [address] [place] [address] Melva Modi PA [address] [place] [address] Social History Tobacco Use Types Packs/Day Years Used Date Smoking Tobacco: Every Day Cigarettes 0.3 20 Smokeless Tobacco: Never Alcohol Use Standard Drinks/Week Comments Yes 20 (1 standard drink = 0.6 oz pu re alcohol) CAGE ASSESSMENT Answer Date Recorded Cage unable to access Not on file 03/31/2023 Cage max number of drinks Not on file 2022 Cage Beverages a week Not on file 03/31/2023 Have you ever felt you should CUT down on your d rinking? 0 03/31/2023 Have you been ANNOYED by people criticizing your drinking? 0 03/31/2023 Have you felt GUILTY about your drinking? 0 03/31/2023 Have you had a drink first t ney in the morning (EYE-IT QUALITY ANALYST) to steady your nerves or to get rid of a hangover? 0 03/31/2023 CAGE Questionnaire Score 0 023 Comments No Sex and Gender Information Value Date Recorded Sex Assigned at Not on file Legal Sex Female 10:42 AM EDT Gender Identity Not on file Sexual Orientation Not on file documented as of this encounter Plan of Treatment Not on file documented as of this encounter Visit Diagnoses Not on filedocumented in this encounter Additional Health Concerns Assessment Noted Time A Body Mass Index follow-up plan has been documented for the patient 05/18/2023 11:07 AM EDT documented as of this encounter Care Teams Firewall Engineer Relationship Specialty Start Date End Date Pcp, [place] [address] PCP - General Family Medicine 03/24/22 documented as of this encounter
--- OUTSIDE RECORDS SUMMARY | 2025-02-19 15:03 | XMS_ITS | Encounter Summary ---
Author Organization Healthcare Address [address] [place] [id number] Care Team Providers Care Inventory Associate Name Role Phone Pcp, No Primary Care Provider Unavailabl e Reason for Visit * Reason Comments Med Refill Encounter Details Date Type Department Care Team ([facility] st Contact Info) Description 09/06/2023 Refill [facility] [place] [address] [facility], [address] [place] [address] Melva Modi PA [address] [place] [address] Social History Tobacco Use Types [...] drink first t ney in the morning (EYE-SALES ANALYTICS MANAGER) to steady your nerves or to get [...] documented as of this encounter Care Teams Inventory Associate Relationship Specialty Start Date End Date Pcp, [place] [address] PCP - General Family Medicine 03/24/22 documented as of this encounter
--- OUTSIDE RECORDS SUMMARY | 2025-02-19 15:03 | XMS_ITS | Clinical Summary ---
Author Organization Healthcare Address [address] [place] [address] Care Team Providers Care Bookmobile Librarian Name Role Phone Pcp, No Primary Care Provider Unavailabl e Allergies Active Allergy Reactions Criticality Noted Date Comments Codeine Hives Medium 03/23/2023 Vanilla Hives,Itching Medium 04/16/2023 Medications albuterol 108 (90 Base) MCG/ACT inhaler Inhale 2 puffs every 6 (six) hours if needed for wheezing or shortness of breath. 1 each 3 Active atorvastatin (Lipitor) 80 MG tablet Take 1 tablet (80 mg) by mouth every night. 30 tablet 3 3 Active ipratropium-alb uterol (Duo-Neb) 0.5-2.5 mg/3 mL nebulizer solution Take 3 mL by nebulization every 4 (four) hours. 180 mL 11 3 Active metoprolol tartrate (Lopressor) 50 MG tablet Take 1 tablet (50 mg) by mouth 2 (two) times a day. 60 tablet 3 3 Active aspirin 81 MG EC tablet Take 1 tablet (81 mg) by mouth 1 (one) time each day. Active buPROPion XL (Wellbutrin XL) 150 MG 24 hr tablet Take 1 tablet (150 mg) by mouth 1 (one) time each day. Do not crush, chew, or split. 30 tablet 11 3 Active furosemide (Lasix) 20 MG tablet Take 1 Tablet by mouth once daily as needed for weight gain. If additional refills needed, Call Dr. Dillard 30 tablet 4 Active Active Problems Problem Noted Date Diagnosed Date S/P TAVR (transcatheter aortic valve replacement ) 04/15/2023 05/16/2023 Obesity 03/25/2023 Nonrheumatic aortic valve stenosis 03/25/2023 Severe aortic stenosis 03/23/2023 COPD (chronic obstructive pulmonary disease) Tobacco abuse AAA (abdominal aortic aneurysm) Dyslipidemia PAC (premature atrial contraction) CAD (coronary artery disease) GERD (gastroesophageal reflux disease) Pulmonary nodules History of impetigo Recurrent syncope Resolved Problems Problem Noted Date Diagnosed Date Resolved Date Myocardial infarction 2022 Hypokalemia 03/25/2023 Immunizations Immunization Administration Dates Next Due Pfizer-BioNTech COVID-19 Vac cine (Bishop Cap) 12+ years (lenora-sucrose) 10/26/2021 Pfizer-BioNTech COVID-19 Vaccine (Purple Cap) 12 + 09/16/2021 Social History Tobacco Use Types Packs/Day Years [...] drink first t ney in the morning (EYE-SLUBBER MACHINE OPERATOR) to steady your nerves or to get rid of a hangover? 0 03/31/2023 CAGE Questionnaire Score 0 023 Comments No Sex and Gender Information Value Date Recorded Sex Assigned at Not on file Legal Sex Female 10:42 AM EDT Gender Identity Not on file Sexual Orientation Not on file Last Filed Vital Signs Vital Sign Reading Time Taken Comments Blood Pressure 121/75 05/18/2023 10:18 AM EDT Pulse 52 05/18/2023 10:18 AM EDT Temperature 36.7 C (98 F) 04/01/2023 11:21 AM EDT Respiratory Rate 16 04/01/2023 7:57 AM EDT Simultaneous filing. User may not have seen previous data. Oxygen Saturation 98% 05/18/2023 10: 18 AM EDT Inhaled Oxygen Concentration - - Weight 78.3 kg (172 lb 9.9 oz) 05/18/2023 10:18 AM EDT Height 162.6 cm (5' 4 ) 05/18/2023 10:1 8 AM EDT Body Mass Index 29.63 05/18/2023 10:18 AM EDT Plan of Treatment Health Maintenance Due Date Last Done Comments [facility]-Depression Screening 1965 [facility]-HIV Screening 1965 [facility]-Hepatitis C Screening 1965 [facility]-/Child/Adol SDOH Screenings 1965 [facility]- SDOH Screenings 1983 [facility]-Adult SDOH Screenings 1983 [facility]-DTaP,Tdap,and Td Vaccine s (1 - Tdap) 1984 [facility]-Hepatitis B Vaccines (1 of 3 - 19+ 3-dose series) 1984 [facility]-Pneumococcal Vaccine: 50 + Years (1 of 2 - PCV) 1984 [facility]-Pap Smear 1986 [facility]-Cervical Cancer Screening 1995 [facility]-HPV/Cotest 1995 CT Colonography 2010 Colonoscopy 2010 FIT-DNA 2010 FIT 2010 FOBT 2010 Sigmoidoscopy 2010 [facility]-Colorectal Cancer Screening 2010 [facility]-Breast Cancer Screening 2015 [facility]-Zoster Vaccines (1 of 2) 2015 [id number]-EXSNB-07 Vaccine (3 - 2023- season) 2024 10/26/2021, 09/16/2021 [facility]-Influenza Vaccine ([place] n Ended) 2025 [facility]-Diabetes: Hemoglobin A1C Discontinued 03/23/2023 [facility]-Obesity Intervention Completed 023, 05/18/2023 HPV Vaccines Aged Out No longer eligi ble based on patient's age to complete this topic [facility]-HIB Vaccines Aged Out No longer e ligible based on patient's age to complete this topic [facility]-Hepatitis A Vaccines Aged Out No longer eligible based on patient's age to complete this topic [facility]-IPV Vaccines Aged Out No longer e ligible based on patient's age to complete this topic [facility]-Rotavirus Vaccines Aged Out No lo nger eligible based on patient's age to complete this topic Medical Devices Implanted Type Area Hat Lacer Device Identifier Shelf Expiration Date Model / Serial / Lot Valve Evolut Pro Transaortic 26mm - [id number] Implanted:Qty: 1 on 03/31/2023 by Sergio Faith MD at [facility] [id number] 11/09/2023 EVPROPLU S26 US / [id number] / [id number] Procedures Procedure Name Priority Date/Time Associated Diagnosis Comments HEMOGLOBIN A1C Routine 03/23/2023 5:49 PM EDT from Last 3 Months or Most Recently Relevant to Health Maintenance Results * (ABNORMAL) Hemoglobin A1c (03/23/2023 5:49 PM EDT) Hemoglobin A1c 5.8(H) <5.7 % 03/23/2023 6:35 PM EDT [facility] Blood Venous blood specimen / Unknown Venipuncture / Unknown 03/23/2023 5:49 PM EDT 03/23/2023 6:20 PM EDT Narrative [facility] - 03/23/2023 6:35 PM EDT HA1C Interpretive Data: Diagnosis of Diabetes: Diabetic > or = 6.5% Pre-diabetic 5.7 to 6.4% Non-diabetic < or = 5.6% Glycemic Targets for Type I and Type II Diabetics: Non- Adults <7.0% Adults <6.0% Children and Adolescents <7.5% Source: [place] [employer]. Standards of medical care in diabetes,2017. Diabetes Care.2017:40 (suppl 1):S1-S135. HbA1c assay performed by an ion-exchange chromatography method that is certified traceable to the DCCT. So Jeffries APRN LAB BLOOD ORDERABLES Final R esult [facility] [address] [place] [phone] from Last 3 Months or Most Recently Relevant to Health Maintenance Insurance [facility] MEDICAID Advance Directives * Full Code (Latest Code Status on File) Date Activated Date Inactivated Comments 03/31/2023 4:10 PM 04/01/2023 4:50 PM Question Answer Comments Patient has decision-making capacity? Yes * Full Code Date Activated Date Inactivated Comments 03/23/2023 5:20 PM 03/25/2023 1:24 PM Question Answer Comments Patient has decision-making capacity? Yes Care Teams Bookmobile Librarian Relationship Specialty Start Date End Date Pcp, Letty [address] [place] [address] PCP - General Family Medicine 03/24/22
--- NOTE | 2025-02-19 15:30 | CT_ITS ---
FINAL REPORT TECHNIQUE: Axial images were obtained from the lung apex to the mid abdomen by computed tomography. This study was performed with techniques to keep radiation doses as low as reasonably achievable (ALARA). Individualized dose reduction techniques using automated exposure control or adjustment of mA and/or kV according to the patient's size were employed. CLINICAL HISTORY: lung cancer screening. Smokes 9 cigarettes per day x20 yrs. COPD. Exposure to second hand smoke. COMPARISON: 01/22/2025 FINDINGS: CHEST CT LOW DOSE CTDI vol (mGy): 2.90 DLP (mGy-cm): 102.12 An aortic valve is present. There is enlargement of the ascending aorta measuring 4.2 cm in diameter. There is no axillary adenopathy. There is no hilar or mediastinal adenopathy. The heart is normal in size. There is no pericardial or pleural effusion. Lung window images demonstrate no suspicious infiltrate or nodule. There are mild changes of centrilobular emphysema. Bilateral calcified granulomas are identified. Limited images of the upper abdomen are unremarkable. IMPRESSION: Enlargement of the ascending aorta. Lung RADS category 1S. Recommend 12 month follow-up low-dose chest CT. Reviewed, Interpreted and Dictated by Alexander Catherine MD Transcribed by Luli Vela Authenticated and . [facility]
--- NOTE | 2025-02-19 15:30 | CT_ITS ---
FINAL REPORT TECHNIQUE: The patient was injected with IV contrast. Axial images were obtained through the chest in a PE protocol. 3-D reconstruction images were also performed. Individualized dose reduction techniques using automated exposure control or adjustment of the MA and/or KV according to patient's size were employed. CLINICAL HISTORY: aneurysm COMPARISON: 03/12/2023 FINDINGS: Mediastinal vasculature is adequately opacified. No pulmonary artery filling defects are identified to suggest PE. There has been interval placement of aortic valve. There is aneurysmal dilatation of the ascending aorta measuring up to 4.1 x 4.0 cm. This may be related to poststenotic dilatation. There is no evidence of dissection. There is no axillary adenopathy. There is no hilar or mediastinal adenopathy. The heart size is normal. There is no pericardial or pleural effusion. Limited images of the upper abdomen reveal fatty infiltration of the liver. No suspicious infiltrate or nodule is identified. There are mild changes of centrilobular emphysema. There are scattered calcified granulomas. IMPRESSION: No pulmonary embolus or dissection. Aneurysmal dilatation of the ascending aorta. Reviewed, Interpreted and Dictated by Alexander Catherine MD Transcribed by Luli Vela Authenticated and [facility]
[2025-02-19] MEDS: SODIUM CHLORIDE 0.9% 10ML SYR (RAD ONLY) 10 ML IV (15:47)
[2025-02-19] MEDS: 0.9 % SODIUM CHLORIDE 50 ML VIAL IV (15:47)
[2025-02-19] MEDS: IOPAMIDOL-370 (76%);100ML BOTTLE 80 ML IV (15:47)
[2025-02-19 17:09] LABS: INR 1.03 (0.9-1.1); Prothrombin Time 11.4 seconds (10.1-12.5)
[2025-02-19 18:57] LABS: Albumin Level 4.2 g/dl (3.5-5.0); Chloride 102 mmol/L (98-107); Sodium 136 mmol/L (136-145)
[2025-02-19 18:58] LABS: Potassium 4.8 mmoL/L (3.5-5.1)
[2025-02-19 19:00] LABS: Alanine Aminotransferase 64 U/L (12-78); Albumin/Globulin Ratio 1.4 (1.1-1.8); Alkaline Phosphatase 117 U/L (38-126); Anion Gap 10.8 mEq/L (5-15); Aspartate Amino Transferase 74 U/L (14-36); Bilirubin,Total 0.4 mg/dl (0.2-1.3); Blood Urea Nitrogen 2 mg/dl (7-17); Carbon Dioxide 28 mmol/L (22.0-30.0); Estimated Glomerular Filt Rate 163 ml/min (>60); GFR (African American) 198 ML/MIN (>60); Globulin 3.1 g/dL (1.3-3.2); Total Protein,Serum 7.3 g/dl (6.3-8.2)
[2025-02-19 19:01] LABS: Calcium 8.9 mg/dl (8.4-10.2); Glucose 97 mg/dl (74-100)
[2025-02-20 09:43] LABS: HBsAg Screen Negative (Negative); HCV Ab Non Reactive (Non Reactive); Hep A Ab, IGM Negative (Negative); Hep B Core Ab, IgM Negative (Negative)
[2025-02-22 05:42] LABS: ALT (SGPT) P5P 60 IU/L (0-40); AST (SGOT) P5P 69 IU/L (0-40); Alpha 2-Macroglobulins, Qn 229 mg/dL (110-276); Apolipoprotein A-1 211 mg/dL (116-209); Bilirubin, Total 0.3 mg/dL (0.0-1.2); Cholesterol, Total 230 mg/dL (100-199); Fibrosis Score 0.21 (0.00-0.21); GGT 191 IU/L (0-60); Glucose 92 mg/dL (70-99); Haptoglobin 128 mg/dL (33-346); Steatosis Score 0.62 (0.00-0.40); Triglycerides 142 mg/dL (0-149)
== END 2025-02-19 23:59 | disposition home or self-care (01) ==
LOC: RAD 15:01
PROVIDERS: Nurse Practitioner Family; PCP Nurse Practitioner Family; Visit Provider Nurse Practitioner Family
DX: Z12.2 Encounter for screening for malignant neoplasm of respiratory organs (principal); I71.21 Aneurysm of the ascending aorta, without rupture; R91.8 Other nonspecific abnormal finding of lung field; F17.210 Nicotine dependence, cigarettes, uncomplicated; J44.9 Chronic obstructive pulmonary disease, unspecified; K76.0 Fatty (change of) liver, not elsewhere classified
CPT/HCPCS: 36415; 71271; 71275; 80053; 80074; 81596; 82247; 82465; 82947; 82977; 83521; 84450; 84460; 84478; 85610; 94762; Q9967

== ENCOUNTER 2025-02-26 07:00 | Day surgery (SDC) | payer MEDICAID, SELFPAY ==
[2025-02-26] VITALS (12 sets, daily range): BP systolic 107–150; BP diastolic 63–92; PULSE 83–101; RESP 14–20; O2SAT 82–97; BMI 27.8
--- NOTE | 2025-02-26 07:29 | IR_ITS ---
APPROVED REPORT Patient Location: Outpatient PROCEDURES Selective coronary angiogram INDICATION Abnormal Myoview, Angina pectoris Informed consent was obtained prior to the procedure. COMPLICATIONS None Estimated Blood Loss: Less than 10 mls TECHNIQUE One percent lidocaine used to anesthetize the right anterior aspect of the wrist. The right radial artery was accessed via the Seldinger technique. A 6 Samoan sheath was placed in the right radial artery. 2.5 mg of Verapamil, 800 mcg of nitroglycerin, 1mg Lidocaine and 5000 U Heparin were given through the arterial sheath. The JL3 catheter was also used to perform selective coronary angiogram. At the end of the procedure the sheath was removed good hemostasis was achieved using Traclet band, patient was transferred to the postop holding area in stable condition. ANGIOGRAPHIC RESULTS The left main artery Normal The left anterior descending artery Has a proximal concentric 20 to 30% stenosis with mid vessel 10 to 20% stenosis The circumflex artery Dominant 10% luminal regularities The right coronary artery Nondominant 10% luminal regularities The ROSEN ventriculogram reveals Not performed The left ventricular end-diastolic pressure Not measured IMPRESSION Mild to moderate proximal LAD disease as described above Diffuse luminal regularities PLAN 1. Medical management with aggressive risk factor modification Electronically signed by : Neil Dillard MD 02/26/2025 08:55:47
--- NOTE | 2025-02-26 07:30 | SUR.PREOP ---
pt o2 sat 82% on ra. pt refused to wear oxygen. aware.
[2025-02-26 07:43] LABS: Basophils # 0.1 K/mm3 (0-0.2); Basophils % 1.6 % (0.1-2.0); Eosinophils # 0.1 Kmm3 (0.0-0.4); Eosinophils % 2.8 % (0.1-12.0); Hematocrit 54.6 % (37.0-47.0); Immature Granulocytes # 0.02 10^3uL; Immature Granulocytes % 0.4 %; Lymphocytes # 1.7 K/mm3 (0.7-4.5); Lymphocytes % 33.9 % (10-50); Mean Corpuscular HGB Conc 33.5 g/dL (31.8-35.4); Mean Corpuscular Hemoglobin 30.7 pg (27.0-31.2); Mean Corpuscular Volume 91.6 fl (81-99); Mean Platelet Volume 9.2 fl (7.4-10.4); Monocytes # 0.3 K/mm3 (0.1-1.0); Monocytes % 6.3 % (1.7-9.3); Neutrophils # 2.8 K/mm3 (1.8-7.8); Nucleated Red Blood Cells # 0 10^3/uL; Nucleated Red Blood Cells % 0 %; Platelet Count 162 K/mm3 (142-424); Red Blood Count 5.96 M/mm3 (4.20-5.40); Red Cell Distribution Width 16.3 % (11.5-17.5); Red Cell Distribution Width-SD 50.8 fL; White Blood Count 5.1 K/mm3 (4.8-10.8)
[2025-02-26 07:46] LABS: Chloride 97 mmol/L (98-107); Sodium 140 mmol/L (136-145)
[2025-02-26 07:49] LABS: Creatinine Clearance Estimated 141 mL/min (50-200); Estimated Glomerular Filt Rate 126 ml/min (>60); GFR (African American) 153 ML/MIN (>60)
[2025-02-26 07:50] LABS: Blood Urea Nitrogen < 2 mg/dl (7-17); Calcium 8.7 mg/dl (8.4-10.2); Carbon Dioxide 33 mmol/L (22.0-30.0); Glucose 96 mg/dl (74-100)
[2025-02-26 07:56] LABS: Hemoglobin 18.4 g/dL (12.2-16.2)
[2025-02-26] MEDS: LIDOCAINE 1% 10ML MDV 10 ML IJ (08:24)
[2025-02-26] MEDS: HEPARIN 1,000 UNITS/ML 10ML VIAL (CATH LAB) 5000 UNIT IV (08:25)
[2025-02-26] MEDS: VERAPAMIL 2.5MG/ML 2ML VIAL 2.5 MG IV (08:26)
[2025-02-26] MEDS: HEPARIN 1,000 UNITS/500ML NS (CATH LAB) 3000 UNIT IV (08:26)
[2025-02-26] MEDS: NITROGLYCERIN 800MCG/8ML SYR (CATH LAB) 800 MCG IA (08:26)
[2025-02-26] MEDS: 0.9 % SODIUM CHLORIDE 500 ML 25 ML IV (08:27)
[2025-02-26] MEDS: diphenhydrAMINE 50MG/ML VIAL 50 MG IV (08:27)
[2025-02-26] MEDS: MIDAZOLAM HCL 1MG/ML 5ML VIAL 1 MG IV (08:50)
[2025-02-26] MEDS: FENTANYL 100MCG/2ML VIAL 25 MCG IV (08:51)
[2025-02-26] MEDS: IOPAMIDOL-370 (76%);100ML BOTTLE 30 ML IV (11:13)
== END 2025-02-26 11:30 | disposition home or self-care (01) ==
PROVIDERS: PCP Nurse Practitioner Family; Visit Provider Internal Medicine
PROC: 4A023N7 Measurement of Cardiac Sampling and Pressure, Left Heart, Percutaneous Approach (ICD-10-PCS; CPT 93452; principal; 2025-02-26 07:00)
DX: I25.118 Atherosclerotic heart disease of native coronary artery with other forms of angina pectoris (principal); R93.1 Abnormal findings on diagnostic imaging of heart and coronary circulation; R94.31 Abnormal electrocardiogram [ECG] [EKG]; R55 Syncope and collapse; J44.9 Chronic obstructive pulmonary disease, unspecified; I10 Essential (primary) hypertension; I25.2 Old myocardial infarction; I71.20 Thoracic aortic aneurysm, without rupture, unspecified; I71.21 Aneurysm of the ascending aorta, without rupture; E78.2 Mixed hyperlipidemia; R60.0 Localized edema; F17.200 Nicotine dependence, unspecified, uncomplicated; Z95.2 Presence of prosthetic heart valve; Z95.5 Presence of coronary angioplasty implant and graft; Z79.82 Long term (current) use of aspirin; Z79.02 Long term (current) use of antithrombotics/antiplatelets; Z79.51 Long term (current) use of inhaled steroids; Z79.899 Other long term (current) drug therapy; Z88.5 Allergy status to narcotic agent; Z88.8 Allergy status to other drugs, medicaments and biological substances
CPT/HCPCS: 93454; 80048; 85025; 99152; C1725; C1769; J1200; J1644; J3010; J7040; Q9967

== ENCOUNTER 2025-03-20 09:32 | Outpatient (CLI) | payer MEDICAID, SELFPAY ==
--- OUTSIDE RECORDS SUMMARY | 2025-03-20 09:34 | XMS_ITS | Encounter Summary ---
Author Organization Healthcare Address [address] [place] [id number] Care Team Providers Care Curriculum And Instruction Director Name Role Phone Pcp, No Primary Care Provider Unavailabl e Reason for Visit * Reason Comments Med Refill Encounter Details Date Type Department Care Team ([facility] st Contact Info) Description 09/06/2023 Refill [facility] [place] [address], [address] [place] [address] Melva Modi PA [address] [place] [address] Social History Tobacco Use Types [...] drink first t ney in the morning (EYE-ON SITE PROPERTY MANAGER) to steady your nerves or to [...] documented as of this encounter Care Teams Curriculum And Instruction Director Relationship Specialty Start Date End Date Pcp, [place] [address] PCP - General Family Medicine 03/24/22 documented as of this encounter
--- OUTSIDE RECORDS SUMMARY | 2025-03-20 09:34 | XMS_ITS | Clinical Summary ---
Author Organization Healthcare Address [address] [place] [address] Care Team Providers Care Ophthalmologist Retina Specialist Name Role Phone Pcp, No Primary Care [...] Have you had a drink first t nye in the morning (EYE-FOOD PROCESSING PLANT MANAGER) to steady your nerves or to [...] 2015 UKY-Zoster Vaccines (1 of 2) 2015 HNO-SZZQZ-11 Vaccine (3 - season) 2024 10/26/2021, 09/16/2021 UKY-Influenza Vaccine (#1) 2025 UKY-Diabetes: Hemoglobin A1C Discontinued 03/23/2023 UKY-Obesity [...] this topic Medical Devices Implanted Type Area Hydrodynamicist Device Identifier Shelf Expiration Date Model / Serial / Lot Valve Evolut Pro Transaortic 26mm - [id number] Implanted:Qty: 1 on 03/31/2023 by Sergio Faith MD at [facility] [id number] 11/09/2023 EVPROPLU S26 US / [id number] / [id number] Procedures Procedure Name Priority Date/Time Associated Diagnosis [...] Adults <6.0% Children and Adolescents <7.5% Source: [place] [employer]. Standards of medical care in diabetes,2017. Diabetes Care.2017:40 (suppl 1):S1-S135. HbA1c assay performed by an ion-exchange chromatography method that is certified traceable to the DCCT. So Jeffries APRN LAB BLOOD ORDERABLES Final R esult [facility] [address] [place] [phone] from Last 3 Months or Most Recently Relevant to Health Maintenance [place] [address] [place] [address] MEDICAID Advance Directives * Full Code (Latest Code Status on File) Date Activated Date Inactivated Comments 03/31/2023 4:10 PM 04/01/2023 4:50 PM Question Answer Comments Patient has decision-making capacity? Yes * Full Code Date Activated Date Inactivated Comments 03/23/2023 5:20 PM 03/25/2023 1:24 PM Question Answer Comments Patient has decision-making capacity? Yes Care Teams Ophthalmologist Retina Specialist Relationship Specialty Start Date End Date Pcp, No [address] [place] [address] PCP - General Family Medicine 03/24/22
--- OUTSIDE RECORDS SUMMARY | 2025-03-20 09:34 | XMS_ITS | Encounter Summary ---
Author Organization Healthcare Address [address] [place] [id number] Care Team Providers Care Unloader Operator Name Role Phone Pcp, No Primary Care Provider Unavailabl e Reason for Visit * Reason Comments Med Refill Encounter Details Date Type Department Care Team ([facility] st Contact Info) Description 05/03/2024 Refill [facility] [place] [address] [facility], [address] [place] [address] Melva Modi PA [address] [place] [address] Social History Tobacco Use Types [...] drink first t ney in the morning (EYE-COMMUNITY ADMINISTRATOR) to steady your nerves or to get [...] documented as of this encounter Care Teams Unloader Operator Relationship Specialty Start Date End Date Pcp, [place] [address] PCP - General Family Medicine 03/24/22 documented as of this encounter
--- OUTSIDE RECORDS SUMMARY | 2025-03-20 09:34 | XMS_ITS | Clinical Summary ---
Author Organization [facility] Address [address] [place] [address] Phone Care Team Providers Care Manager Merchandise Name Role Phone Sergio Hurtado MD Primary Care Provider [phone] Allergies Active Allergy Reactions Criticality Noted Date [...] by mouth 2 times daily. 60 Tablet 3 Active Active Problems Problem Noted Date Diagnosed Date Coronary artery disease invo lving sun'aq coronary artery of sun'aq heart without angina pectoris 04/15/2023 Abdominal aortic [...] Used Date Smoking Tobacco: Every Day Cigarettes 0.2 47.5 Started: 1977 Overall Financial Resource Strain [...] 5 season) 2024 10/26/2021, 09/16/2021 Influenza Vaccine (#1) 2025 06/28/2023 Meningococcal B Vaccine Aged Out No l onger eligible based on patient's age to complete this topic Insurance [facility] [id number] [facility] [place] [id number] [place] [address] [facility] Advance Directives For more information, please contact: [phone] * Full Code (Latest Code Status on File) Date Activated Date Inactivated Comments 04/15/2023 12:50 AM 04/16/2023 9:26 PM Care Teams Manager Merchandise Relationship Specialty Start Date End Date Sergio Hurtado MD [address] [facility] [address] [place] [address] PCP - General Family Medicine 04/14/23
--- NOTE | 2025-03-20 10:00 | US_ITS ---
FINAL REPORT CLINICAL HISTORY: Thoracic aneurysm FINDINGS: Limited sonographic images of the thoracic aorta was obtained. The aorta measures up to 2 cm. IMPRESSION: There is no evidence of thoracic aneurysm. Reviewed, Interpreted and Dictated by Chet Mistry MD Transcribed by Luli Vela Authenticated and [facility]
== END 2025-03-20 23:59 | disposition home or self-care (01) ==
LOC: RAD 09:32
PROVIDERS: PCP Nurse Practitioner Family; Visit Provider Nurse Practitioner Family
DX: I71.21 Aneurysm of the ascending aorta, without rupture (principal)
CPT/HCPCS: 76770

== ENCOUNTER 2025-04-13 16:36 | Observation (INO) | payer MEDICAID, SELFPAY ==
[2025-04-13] VITALS (9 sets, daily range): BP systolic 99–144; BP diastolic 57–91; PULSE 64–76; RESP 16–21; TEMP 36.6–36.8; O2SAT 87–97; BMI 30.1; BMI 27.2
--- OUTSIDE RECORDS SUMMARY | 2025-04-13 16:41 | XMS_ITS | Clinical Summary ---
Author Organization [facility] Address [address] [place] [address] Phone Care Team Providers Care Production Team Leader Name Role Phone Sergio Hurtado MD Primary Care Provider [phone] Allergies Active Allergy Reactions Criticality Noted Date [...] Diagnosed Date Coronary artery disease invo lving yavapai-apache coronary artery of yavapai-apache heart without angina pectoris 04/15/2023 Abdominal aortic [...] Date Smoking Tobacco: Every Day Cigarettes 0.3 47.6 Started: 1977 Overall Financial Resource Strain (CARDIA) [...] patient's age to complete this topic Insurance [facility] [id number] [facility] [place] [id number] [place] [id number] [facility] Advance Directives For more information, please contact: [phone] * Full Code (Latest Code Status on File) Date Activated Date Inactivated Comments 04/15/2023 12:50 AM 04/16/2023 9:26 PM Care Teams Production Team Leader Relationship Specialty Start Date End Date Sergio Hurtado MD [address] [facility] [address] [place] [address] PCP - General Family Medicine 04/14/23
--- OUTSIDE RECORDS SUMMARY | 2025-04-13 16:41 | XMS_ITS | Clinical Summary ---
Author Organization Healthcare Address [address] [place] [address] Care Team Providers Care Permit Review Assistant Name Role Phone Pcp, No Primary Care [...] drink first t ney in the morning (EYE-DIRECTOR OF RETAIL) to steady your nerves or to get [...] 2015 UKY-Zoster Vaccines (1 of 2) 2015 [id number]-35 Vaccine (3 - season) 2024 10/26/2021, 09/16/2021 [...] this topic Medical Devices Implanted Type Area Terminal Press Operator Device Identifier Shelf Expiration Date Model / Serial / Lot Valve Evolut Pro Transaortic 26mm - [id number] Implanted:Qty: 1 on 03/31/2023 by Sergio Fatih MD at [facility] [id number] 11/09/2023 EVPROPLU S26 US / [id number] / [id number] Procedures Procedure Name Priority Date/Time Associated Diagnosis [...] Adults <6.0% Children and Adolescents <7.5% Source: [place] [employer]. Standards of medical care in diabetes,2017. Diabetes Care.2017:40 (suppl 1):S1-S135. HbA1c assay performed by an ion-exchange chromatography method that is certified traceable to the DCCT. So Jeffries APRN LAB BLOOD ORDERABLES Final R esult [facility] [address] [place] [phone] from Last 3 Months or Most Recently Relevant to Health Maintenance [place] [address] MEDICAID Advance Directives * Full Code (Latest Code Status on File) Date Activated Date Inactivated Comments 03/31/2023 4:10 PM 04/01/2023 4:50 PM Question Answer Comments Patient has decision-making capacity? Yes * Full Code Date Activated Date Inactivated Comments 03/23/2023 5:20 PM 03/25/2023 1:24 PM Question Answer Comments Patient has decision-making capacity? Yes Care Teams Permit Review Assistant Relationship Specialty Start Date End Date Pcp, No [address] [place] [address] PCP - General Family Medicine 03/24/22
--- OUTSIDE RECORDS SUMMARY | 2025-04-13 16:41 | XMS_ITS | Encounter Summary ---
Author Organization Healthcare Address 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
--- OUTSIDE RECORDS SUMMARY | 2025-04-13 16:41 | XMS_ITS | Encounter Summary ---
Author Organization Healthcare Address [address] [place] [address] Care Team Providers Care Prefinish Operator Name Role Phone Pcp, No Primary Care Provider Unavailabl e Reason for Visit * Reason Comments Med Refill Encounter Details Date Type Department Care Team ([facility] st Contact Info) Description 09/06/2023 Refill [facility] [place] [address] [facility], [address] [place] [address] Melva Modi PA [address] [place] [address] Social History Tobacco Use Types [...] t ney in the morning (EYE-DIRECTOR OF PHYSICAL THERAPY) to steady your nerves or to get [...] documented as of this encounter Care Teams Prefinish Operator Relationship Specialty Start Date End Date Pcp, [place] [address] PCP - General Family Medicine 03/24/22 documented as of this encounter
--- NOTE | 2025-04-13 16:47 | CT_ITS ---
PROCEDURE INFORMATION: Exam: CT Head Without Contrast Exam date and time: 04/13/2025 5:10 PM Age: 59 years old Clinical indication: Injury or trauma; Fall; Blunt trauma (contusions or hematomas) TECHNIQUE: Imaging protocol: Computed tomography of the head without contrast. Radiation optimization: All CT scans at this facility use at least one of these dose optimization techniques: automated exposure control; mA and/or kV adjustment per patient size (includes targeted exams where dose is matched to clinical indication); or iterative reconstruction. COMPARISON: MR HEAD/BRAIN WO CON 03/23/2024 1:21 PM FINDINGS: Brain: No midline shift. There is no evidence of uncal or subfalcine herniation. There is no evidence of intracranial hemorrhage. Kim-white matter differentiation is preserved. Cerebral ventricles: The ventricular system is normal in size and distribution. Paranasal sinuses: Paranasal sinuses are clear. Mastoid air cells: The mastoid sinuses are clear. Orbital cavities: The orbits are normal. Nasal cavity: Mild chronic rightward nasal septal deviation. Bones: No acute skeletal abnormality or aggressive osseous lesion. Soft tissues: No acute soft tissue findings. IMPRESSION: No acute intracranial pathology.
--- NOTE | 2025-04-13 16:47 | XR_ITS ---
PROCEDURE INFORMATION: Exam: XR Chest Exam date and time: 04/13/2025 5:14 PM Age: 59 years old Clinical indication: Shortness of breath; Additional info: Short of breath TECHNIQUE: Imaging protocol: Radiologic exam of the chest. Views: 1 view. COMPARISON: CT ANGIO CHEST 02/19/2025 3:24 PM FINDINGS: Lungs: Granulomatous changes . No consolidation. Pleural spaces: Unremarkable. No pleural effusion. No pneumothorax. Heart/Mediastinum: Unremarkable. No cardiomegaly. Bones/joints: Unremarkable. IMPRESSION: No acute findings.
--- NOTE | 2025-04-13 16:47 | CT_ITS ---
PROCEDURE INFORMATION: Exam: CT Cervical Spine Without Contrast Exam date and time: 04/13/2025 5:12 PM Age: 59 years old Clinical indication: Injury or trauma; Fall; Blunt trauma TECHNIQUE: Imaging protocol: Computed tomography of the cervical spine without contrast. Radiation optimization: All CT scans at this facility use at least one of these dose optimization techniques: automated exposure control; mA and/or kV adjustment per patient size (includes targeted exams where dose is matched to clinical indication); or iterative reconstruction. COMPARISON: CT HEAD/BRAIN WO CON 04/13/2025 5:10 PM FINDINGS: Bones: There is a reversal of the normal lordosis, related to positioning or spasm. Moderate disc space narrowing at C5-C6. Mild disc space narrowing at C6-C7. Small posterior disc osteophyte complex at C5-C6, causing minimal central canal stenosis and mild bilateral bony neural foraminal stenosis. Remainder of the disc spaces are well preserved. Remainder of the spinal canal is patent. No other significant bony neural foraminal stenosis. Mild degenerative changes of the atlantoaxial joint. Vertebral body heights are well preserved. No acutely displaced fractures. No joint dislocation. No aggressive osseous lesions. Lungs: No acute findings in the lung apices. Thyroid: The thyroid gland is normal. Vasculature: There is mild atherosclerotic calcification of the carotid arteries. Soft tissues: No acute soft tissue findings. IMPRESSION: 1. No acute skeletal pathology. 2. Mild degenerative changes.
--- NOTE | 2025-04-13 16:47 | XR_ITS ---
PROCEDURE INFORMATION: Exam: XR Right Ankle Exam date and time: 04/13/2025 5:14 PM Age: 59 years old Clinical indication: Injury or trauma; Fall; Blunt trauma; Ankle; Right; Additional info: Pain TECHNIQUE: Imaging protocol: Radiologic exam of the right ankle. Views: 3 or more views. COMPARISON: CR XR ANKLE RT MIN 3V 03/21/2024 11:15 AM FINDINGS: Bones/joints: Calcaneal spurring. Osteopenia. No acute fracture or dislocation. Soft tissues: Normal. IMPRESSION: No acute findings.
--- NOTE | 2025-04-13 16:47 | ECG_ITS ---
APPROVED REPORT Exam: Resting ECG HR:75 bpm ECG Measurements Heart Rate 75 AXES UT 154 P 51 QRSd 92 QRS -43 QT 409 T 47 QTc 438 Conclusion Normal sinus rhythm at [address] or T wave changes concerning for ischemia Electronically signed by : Erna Lai, 04/14/2025 00:33:38
--- NOTE | 2025-04-13 16:55 | ED_ITS ---
<Statement entered by Erna Lai DO - 04/15/25 13:44> I was consulted by the DANIEL, and we discussed the complexity of problems being addressed. I approve the treatment and management plan for this patient's care in the emergency department, thus performing a substantial portion of the medical decision making. Erna Lai DO Discharge Plan Disposition Patient Disposition: Admitted Clinical Impressions Clinical Impression: Hypoxia COPD (chronic obstructive pulmonary disease) Qualifiers: COPD type: unspecified COPD Qualified Code(s): J44.9 - Chronic obstructive pulmonary disease, unspecified Discharge ED Provider: Erna Lai General Adult HPI General Chief complaint: Fall Stated complaint: Fall Time Seen by Provider: 04/13/25 16:39 Mode of Arrival: EMS Source of Information: Patient Description of Symptoms (Recalled from ER Triage Doc. by RN): pt is here for fall two days ago with head pain and right ankle pain, pt has hematoma to back of head, pt is soa and weakness History of Present Illness HPI narrative: 59-year-old female presents to the ED today via EMS after she had a fall 2 days ago. She did hit her head causing a hematoma. She does complain of a headache. She also complains of right ankle pain from this fall. She complains of shortness of air from her COPD. She arrives to the ED 88% room air. She was placed on 2 L nasal cannula and her oxygen was 96 on 2 L. Related Data Home Medications ?Medication ?Instructions ?Recorded ?Confirmed furosemide 20 mg tablet 20 mg PO DAILY PRN Fluid 07/3004/13/25 Previous Rx's ?Medication ?Instructions ?Recorded nebulizer accessories #1 ea 03/22/23 nebulizers #1 ea 03/22/23 acetaminophen 325 mg capsule 650 mg (2 x 325 mg) PO QI D PRN 11/11/23 fever or pain #240 caps ipratropium 0.5 mg-albuterol 3 mg 3 ml inhalation QID COPD #90 mL 11/11/23 (2.5 mg base)/3 mL nebulization soln clopidogrel 75 mg tablet 75 mg PO DAILY #30 tabs 03/05 05/29 aspirin 81 mg chewable tablet See Rx Instructions .Rou te 05/04/24 .COMPLEX #30 tabs ondansetron 4 mg disintegrating 4 mg PO QID PRN nausea and 01/03/25 tablet vomiting #10 tabs Ventolin HFA 90 mcg/actuation See Rx Instructions .Rou te 01/09/25 aerosol inhaler (albuterol sulfate) .COMPLEX #18 grams atorvastatin 80 mg tablet See Rx Instructions .Route 0 01/09/25 .COMPLEX #90 tabs metoprolol tartrate 50 mg tablet 50 mg PO BID 90 days #180 tabs 01/09/25 pantoprazole 40 mg tablet,delayed See Rx Instructions .Route 01/09/25 release .COMPLEX #90 tabs trazodone 50 mg tablet See Rx Instructions .Route 0 01/09/25 .COMPLEX #30 tabs fluticasone fur. 200 mcg-umeclid 1 inh inhalation HUNG Y #60 ea 02/13/25 62.5 mcg-vilant 25 mcg inhalat.powder (Trelegy Ellipta) levocetirizine 5 mg tablet 5 mg PO DAILY #30 tabs 03/05 01/27 omeprazole 40 mg capsule,delayed 40 mg PO DAILY #30 ca ps 03/19/25 release Allergies Allergy/AdvReac Type Severity Reaction Status Date / Time codeine Allergy Rash Verified 04/13/25 17:09 levofloxacin AdvReac Rash Verified 04/13/25 17:09 [facility] Disclaimer: The information contained in this section may have been updated after the patient was seen, as this information can be updated by other users. Medical History (Updated 04/13/25 @ 19:42 by Lea Smith (ED), [employer]) History of staph infection Hoarseness Thoracic aortic aneurysm Hypertension Atypical angina Dyspnea Abnormal ECG Pain in right lower leg Edema of right lower leg Dizziness Sore throat Dysuria URI, acute Encounter for immunization Sleep disorder Cholelithiasis Anxiety CAD (coronary artery disease) Hypomagnesemia Impetigo Family history of seizure in brother Murmur GERD (gastroesophageal reflux disease) COPD exacerbation Palpitation Screening, lipid Screening for diabetes mellitus MVP (mitral valve prolapse) Pre-syncope Chest pain Surgical History (Updated 03/19/25 @ 10:19 by GERI Jefferson) History of tonsillectomy and adenoidectomy S/P TAVR (transcatheter aortic valve replacement) History of heart artery stent S/P AVR (aortic valve replacement) Social History Smoking Status: Current every day smoker alcohol intake: current alcohol intake frequency: a few times a month substance use type: denies use current occupational status: employed Travel in the last 8 weeks?: None Have you lived/traveled outside [place] in past 30 days?: No Contact w/someone who lives/traveled outside US past 30 days?: No Exposure to someone with infectious disease in past 14 days?: No Do you have a fever (greater than 100.4 F or 38 C)?: No Have you tested positive for COVID-19?: No Exposed to someone with COVID-19 in past 14 days?: No Do you have a sore throat?: No Do you have a cough?: No Do you have any weakness?: No Do you have any diarrhea?: No Are you experiencing any unusual bleeding?: No Do you have any muscle aches/pain?: No Do you have any abdominal pain?: No Are you experiencing loss of taste or smell?: No Other Medical History Have you received the Flu Vaccine for this season: No Have you received the Pneumonia Vaccine: Yes ROS Obtained: Yes Systems reviewed as appropriate & no additional complaints except as documented Constitutional Constitutional: Reports as per HPI Physical Exam General General appearance: alert and anxious Head Head exam: normocephalic and other (Hematoma) Eye Eye exam: Present PERRL and EOMI ENT ENT exam: Present normal oropharynx and mucous membranes moist Neck Neck exam: Present full ROM and trachea midline Respiratory Respiratory exam: Present wheezes Cardiovascular Cardiovascular exam: Present regular rate, normal rhythm, normal heart sounds, +S1 and +S2 Abdominal Exam Abdominal exam: Present soft and normal bowel sounds Extremities Exam Extremities exam: Present normal inspection, full ROM and normal capillary refill Neurological Exam Neurological exam: Present alert and oriented X3 Skin Skin exam: Present warm, dry and intact Medical Decision Making Medical Records Screening: Per USPSTF and CDC recommendations, given the prevalence of disease in our region, it is our hospital?s policy to screen for HIV and viral Hepatitis for all patients aged 18 and over and those with ongoing risk factors. Cristóbal Inquiry Pt receiving controlled substance: No Vital Signs: 04/13/25 16:46 04/13/25 17:00 04/13/25 17:49 Temperature 98.1 F Temperature Source Oral Pulse Rate 73 65 Pulse Rate [Left Radial] 76 Respiratory Rate 20 16 16 Blood Pressure 99/75 L 115/57 L Blood Pressure [Right Arm] 127/78 Blood Pressure Mean [Right Arm] 94 02 Sat by Pulse Oximetry 90 L 94 L 97 Oxygen Delivery Method Room Air T-Piece 04/13/25 18:00 04/13/25 18:30 Temperature Temperature Source Pulse Rate 64 70 Pulse Rate [Left Radial] Respiratory Rate 16 21 Blood Pressure 101/66 L 115/76 Blood Pressure [Right Arm] Blood Pressure Mean [Right Arm] 02 Sat by Pulse Oximetry 95 94 L Oxygen Delivery Method T-Piece Lab Data Lab Results 04/13/25 16:39: WBC 7.0, RBC 5.59 H, Hgb 17.3 H, Hct 49.4 H, MCV 88.4, MCH 30.9, MCHC 35.0, RDW 13.9, Plt Count 173, MPV 9.7, Neut % (Auto) 52.6, Lymph % (Auto) 37.4, Williamson % (Auto) 6.9, Eos % (Auto) 1.6, Baso % (Auto) 1.4, Neut # (Auto) 3.7, Lymph # (Auto) 2.6, Williamson # (Auto) 0.5, Eos # (Auto) 0.1, Baso # (Auto) 0.1, S odium 132 L, Potassium 3.2 L, Chloride 94 L, Carbon Dioxide 27, Anion Gap 14.2, BUN 4 L, Creatinine 0.40 L, Estimated Creat Clear 184, Estimated GFR 163, Est GFR ( Amer) 198, Glucose 105 H, Calcium 9.0, Magnesium 1.7, Total Bilirubin 0.6, AST 248 H, ALT 184 H, Alkaline Phosphatase 175 H, Troponin I < 0.01, Total Protein 7.7, Albumin 4.5, Globulin 3.2, Albumin/Globulin Ratio 1.4, Lipase 82, Plasma/Serum Alcohol 194 H 04/13/25 16:59: VBG pH 7.47 H, VBG pCO2 38.6, VBG pO2 64.1 H, VBG HCO3 27.4, VBG Total CO2 28.6 H, VBG O2 Saturation 93.7 H, VBG Base Excess 3.7 H, VBG Lactic Acid 3.0 H 04/13/25 16:39 04/13/25 16:39 Orders (Tests/Meds): ED MEDICATIONS Generic Name Dose Route Start Last Admin Trade Name Benita PRN Reason Stop Dose Admin Acetaminophen 650 mg 04/13/25 20:02 Acetaminophen 325mg Tab PO 05/13/25 20:01 Q4HP PRN Fever or Mild Pain (1-3) Enoxaparin Sodium 40 mg 04/14/25 09:00 Enoxaparin 40mg/0.4ml Syringe SUBCUT 05/14/25 08:59 DAILY PAYAM Folic Acid 1 mg 04/14/25 09:00 Folic Acid 1mg Tablet PO 05/14/25 08:59 DAILY PAYAM Lorazepam 0.5 mg 04/13/25 20:10 Lorazepam 2mg/Ml Vial IV 05/13/25 20:09 Q4HP PRN Agitation Lorazepam 2 mg 04/13/25 20:11 Lorazepam 2mg/Ml Vial IV 05/13/25 20:10 Q1HP PRN CIWA >16 Multivitamins 1 each 04/14/25 17:00 Multivitamin Tablet PO 05/14/25 16:59 1700 PAYAM Ondansetron HCl 4 mg 04/13/25 20:02 Ondansetron 4mg/2ml Vial IV 05/13/25 20:01 Q8HP PRN Nausea Pantoprazole Sodium 40 mg 04/13/25 21:00 Pantoprazole 40mg Tablet PO 05/13/25 20:59 HS PAYAM Sodium Chloride 10 ml 04/13/25 20:10 Sodium Chloride 0.9% 10ml Vial IV 05/13/25 20:09 NEEDED PRN to Dilute Lorazepam inj Sodium Chloride 10 ml 04/13/25 20:11 Sodium Chloride 0.9% 10ml Vial IV 05/13/25 20:10 NEEDED PRN to Dilute Lorazepam inj Thiamine HCl 100 mg 04/14/25 09:00 Thiamine 100mg Tablet PO 04/16/25 09:01 DAILY PAYAM Discontinued Medications Generic Name Dose Route Start Last Admin Trade Name Benita PRN Reason Stop Dose Admin Acetaminophen 1,000 mg 04/13/25 16:52 04/13/25 17:00 Acetaminophen 1,000mg/100ml Vial IV 04/13/25 16:53 1,000 mg ONCE ONE Administration Albuterol/Ipratropium 3 ml 04/13/25 16:47 04/13/25 17:00 Ipratropium/Albuterol 3 Ml [facility] 04/13/25 16:48 3 ml ONCE ONE Administration Albuterol/Ipratropium 3 ml 04/13/25 19:45 Ipratropium/Albuterol 3 Ml [facility] 04/13/25 19:46 ONCE ONE Iopamidol 75 ml 04/13/25 17:26 04/13/25 17:27 Iopamidol-370 (76%);100ml Bottle IV 04/13/25 17:27 75 ml ONCE ONE Administration Methylprednisolone Sodium Succinate 125 mg 04/13/25 16:47 04/13/25 17:00 Methylprednisolone Sod Succ 125mg Vial IV 04/13/25 16:48 125 mg ONCE ONE Administration Potassium Chloride 60 meq 04/13/25 17:14 04/13/25 17:35 Potassium Chloride 20meq Tab PO 04/13/25 17:15 Not Given ONCE ONE Potassium Chloride 40 meq 04/13/25 17:35 04/13/25 17:45 Potassium Chloride 20meq/15ml Udc PO 04/13/25 17:36 40 meq ONCE ONE Administration Sodium Chloride 10 ml 04/13/25 17:26 04/13/25 17:27 Sodium Chloride 0.9% 10ml Syr (Rad Only) IV 04/13/25 17:27 10 ml ONCE ONE Administration ORDERS Category Date Time Status CT abdomen pelvis w con Stat Cat Scan 04/13/25 17:[address] cervical spine wo con Stat Cat Scan 04/13/25 16:[address] head/brain wo con Stat Cat Scan 04/13/25 16:47 Completed Ankle XR -Right minimum 3 Views [XR ankle RT min 3V] Exams 04/13/25 16:47 Completed Stat Chest XR -- portable [XR chest portable] Stat Exams 04/13/25 16:47 Completed CBC [Complete Blood Count Auto Diff] Stat Lab 04/13/25 16:39 Completed Comprehensive Metabolic Panel Stat Lab 04/13/25 16:39 Completed Drug Screen,Urine Stat Lab 04/13/25 19:36 Ordered Ethyl Alcohol Stat Lab 04/13/25 16:39 Completed Full Resp Panel w/COVID ([facility]) Routine Lab 04/13/25 19:36 Received Lipase Stat Lab 04/13/25 16:39 Completed Magnesium Stat Lab 04/13/25 16:39 Completed Trop I [Troponin I] Stat Lab 04/13/25 16:39 Completed Troponin I Q3H Lab 04/13/25 19:57 Received Troponin I Q3H Lab 04/13/25 23:00 Ordered Urinalysis and Microscopic Stat Lab 04/13/25 19:37 Ordered VBG [Venous Blood Gas] Stat RT 04/13/25 16:59 Completed Medical Decision Narrative: patient is a 59-year-old female presenting to the emergency department for evaluation of recent fall, right ankle pain, shortness of breath. Patient is hemodynamically stable and nontoxic-appearing upon arrival, afebrile. Differential diagnosis includes COPD exacerbation, fall, anxiety, among others. Workup will be conducted with hematologic labs, specific imaging. Initial inventions include crystalloid bolus, analgesics. Initial workup reviewed by me hematologic labs are remarkable for low sodium at 132, low potassium at 3.2 which patient refused the potassium, patient's BUN was 4 creatinine was 0.4, AST was 248 ALT 184 alk phos 175. Patient does tell me when she arrived that she needs her gallbladder taken out. Please see radiology report for formal read. Patient workup negative for the most part based on what she came in for but patient does have COPD her O2 consistently drops when we try to take her O2 off. She got up and went to the bathroom and came back and her O2 dropped to 82% on room air. Patient does not have insurance and tells me she does not know how she is going to pay. I do explain that I do not want to let her go home and her oxygen dropped that I am uncomfortable this. I will call hospital medicine for admission. I discussed admission with Sorin who accepted admission. Critical Care Critical Care Time Critical Care Time: No
[2025-04-13 16:56] LABS: Hematocrit 49.4 % (37.0-47.0); Hemoglobin 17.3 g/dL (12.2-16.2); Immature Granulocytes % 0.1 %; Mean Corpuscular HGB Conc 35.0 g/dL (31.8-35.4); Mean Corpuscular Hemoglobin 30.9 pg (27.0-31.2); Mean Corpuscular Volume 88.4 fl (81-99); Nucleated Red Blood Cells % 0 %; Platelet Count 173 K/mm3 (142-424); Red Blood Count 5.59 M/mm3 (4.20-5.40); Red Cell Distribution Width-SD 44.4 fL; White Blood Count 7.0 K/mm3 (4.8-10.8)
[2025-04-13] MEDS: ACETAMINOPHEN 1,000MG/100ML VIAL 1000 MG IV (17:00)
[2025-04-13] MEDS: METHYLPREDNISOLONE SOD SUCC 125MG VIAL 125 MG IV (17:00)
[2025-04-13] MEDS: IPRATROPIUM/ALBUTEROL 3 ML NEB IH (17:00)
[2025-04-13 17:01] LABS: Albumin Level 4.5 g/dl (3.5-5.0); Chloride 94 mmol/L (98-107); Potassium 3.2 mmoL/L (3.5-5.1); Sodium 132 mmol/L (136-145)
[2025-04-13 17:03] LABS: Lipase 82 U/L (23-300)
[2025-04-13 17:04] LABS: Alanine Aminotransferase 184 U/L (12-78); Albumin/Globulin Ratio 1.4 (1.1-1.8); Alkaline Phosphatase 175 U/L (38-126); Anion Gap 14.2 mEq/L (5-15); Aspartate Amino Transferase 248 U/L (14-36); Bilirubin,Total 0.6 mg/dl (0.2-1.3); Blood Urea Nitrogen 4 mg/dl (7-17); Calcium 9.0 mg/dl (8.4-10.2); Carbon Dioxide 27 mmol/L (22.0-30.0); Creatinine Clearance Estimated 184 mL/min (50-200); Creatinine,Serum 0.40 mg/dl (0.52-1.04); Estimated Glomerular Filt Rate 163 ml/min (>60); GFR (African American) 198 ML/MIN (>60); Globulin 3.2 g/dL (1.3-3.2); Glucose 105 mg/dl (74-100); Magnesium 1.7 mg/dl (1.6-2.3); Total Protein,Serum 7.7 g/dl (6.3-8.2)
[2025-04-13 17:04] LABS: VBG HCO3 27.4 mmol/L (23-30); VBG PCO2 38.6 mmol/L (35-51); VBG PH 7.47 mmol/L (7.31-7.41); VBG PO2 64.1 mmol/L (28-40)
[2025-04-13 17:05] LABS: Lactate Venous 3.0 mmol/L (0.4-2.0)
--- NOTE | 2025-04-13 17:15 | CT_ITS ---
PROCEDURE INFORMATION: Exam: CT Abdomen And Pelvis With Contrast Exam date and time: 04/13/2025 5:26 PM Age: 59 years old Clinical indication: Abnormal findings; Abnormal lab test; Elevated liver enzymes TECHNIQUE: Imaging protocol: Computed tomography of the abdomen and pelvis with contrast. Radiation optimization: All CT scans at this facility use at least one of these dose optimization techniques: automated exposure control; mA and/or kV adjustment per patient size (includes targeted exams where dose is matched to clinical indication); or iterative reconstruction. Contrast material: ISOVUE; Contrast volume: 75 ml; Contrast route: IV; COMPARISON: CT ABDOMEN PELVIS W CON 01/03/2025 1:28 PM FINDINGS: Liver: Fatty liver and hepatomegaly Gallbladder and biliary ducts: Normal. No calcified stones. No ductal dilation. Pancreas: Normal. No ductal dilation. Spleen: Normal. No splenomegaly. Adrenal glands: Normal. No mass. Kidneys and ureters: Normal. No hydronephrosis. Stomach and bowel: Unremarkable. No obstruction. No mucosal thickening. Appendix: No evidence of appendicitis. Intraperitoneal space: Unremarkable. No free air. No significant fluid collection. Vasculature: Unremarkable. No abdominal aortic aneurysm. Lymph nodes: Unremarkable. No enlarged lymph nodes. Urinary bladder: Urinary bladder wall thickening which could indicate cystitis Reproductive: Unremarkable as visualized. Bones/joints: Unremarkable. No acute fracture. Soft tissues: Unremarkable. IMPRESSION: Cystitis. Otherwise unremarkable exam
[2025-04-13 17:16] LABS: Troponin I < 0.01 ng/ml (0.00-0.034)
[2025-04-13] MEDS: SODIUM CHLORIDE 0.9% 10ML SYR (RAD ONLY) 10 ML IV (17:27)
[2025-04-13] MEDS: IOPAMIDOL-370 (76%);100ML BOTTLE 75 ML IV (17:27)
[2025-04-13] MEDS: POTASSIUM CHLORIDE 20MEQ/15ML UDC 40 MEQ PO (17:45)
--- NOTE | 2025-04-13 20:02 | PC.NURSE ---
report called to paula PADGETT
[2025-04-13 20:03] LABS: Adenovirus,PCR Not Detected (NotDetected); Chlamydophila Pneumoniae, PCR Not Detected (NotDetected); Coronavirus 19, PCR Not Detected (NotDetected); Coronovirus HKU1,PCR Not Detected (NotDetected); Influenza A, PCR Not Detected (NotDetected); Influenza AH1, 2009 Not Detected (NotDetected); Influenza AH1, PCR Not Detected (NotDetected); Influenza AH3,PCR Not Detected (NotDetected); Influenza B, PCR Not Detected (NotDetected); Mycoplasma Pneumoniae, PCR Not Detected (NotDetected); Parainfluenza 1, PCR Not Detected (NotDetected); Parainfluenza 2, PCR Not Detected (NotDetected); Parainfluenza 3, PCR Not Detected (NotDetected); Parainfluenza 4, PCR Not Detected (NotDetected)
[2025-04-13 20:35] LABS: Magnesium 1.8 mg/dl (1.6-2.3); Phosphorous 3.7 mg/dl (2.5-4.5)
[2025-04-13 20:37] LABS: Activated Partial Thrombo Time 26.7 seconds (22.8-30.6); INR 0.99 (0.9-1.1); Prothrombin Time 11.0 seconds (10.1-12.5)
--- NOTE | 2025-04-13 20:41 | P.HP_ITS ---
<Statement entered by Albert Schmidt MD - 04/14/25 17:13> Rounded on patient after nurse practitioner. Personally examined and interviewed patient. Agree with exam findings and care plan as documented. History of Present Illness *Admission Date: 04/13/25 *Reason for visit:: Respiratory difficulty requiring oxygen *History of present illness: This 59-year-old female with a very long history of smoking, has become more short of breath requiring oxygen., Recently had an overnight pulse ox which showed that 88% of the time her oxygen saturations were less than 88% and sometimes as low as 65%. .Patient continues to smoke says she is cut back from 2 packs a day to half a pack a day patient is also alcohol content was 1.98.. But she is completely alert oriented making sense while I am talking to her during the exam so this may be her steady state. All liver functions are elevated more than 3 times normal. Patient also notes that she has a gallbladder that needs to come out and had been referred to having this evaluated there was also a note about a 2 and a 0.5 cm stone near the neck. Patient also feels like she is aspirating at night and so some of this respiratory problem might actually be aspiration of stomach contents once sleeping. She notes that it so bad she usually vomits about 4 times a week especially when she gets coughing. Patient notes that she had an [place] approximately 2 years ago having stent placed and also has a pig aortic valve. Original notes listed a thoracic aortic aneurysm but new or notes shows just a widening of the aorta. Having spoken with the ER provider and during my exam hearing the wheezing socially and expiration. Also noting that you are able to hear in approximately 2 or 3 out of 6 bilateral carotid bruit and a cardiac murmur systolic. Also noting approximately a 20 pound to 25 pound weight loss in the last year. With the alcoholism noting that the liver functions are elevated. Past medical history includes fatty liver, COPD with pneumonia [place] requiring stent and also valve replacement. Most recent cardiac catheterization note from 2024 showed mild to moderate vessel disease. Also in 2023 her left ventricular ejection fraction was 55% Planning on having the patient evaluated make sure she does not have any alcohol withdrawals. Possibly cardiac consult making sure that we do not have increasing troponins. Try to provide her pulmonary toileting and return her back to her baseline not requiring as much oxygen. Have talked to the patient about her CODE STATUS she really has made no decision as far as letting anybody know her wishes are making sure she had a medical melvin r of district attorney we discussed this issue presently she will continue as a full code. But she made no reference that she had any indication of stopping smoking or stopping the alcohol. Extensive teaching was done on liver damage related to overconsumption of alcohol also. Also to take note there is a bump on the back of the patient's head related from where she has fallen recently no other signs of injuries no other reports of pain [facility] Disclaimer: The information contained in this section may have been updated after the patient was seen, as this information can be updated by other users. Medical History (Updated 04/13/25 @ 22:15 by Sorin Wahl APRN) O2 dependent Falling Alcoholism Localized swelling of right lower extremity Right ankle swelling Cellulitis of right lower leg Gallstone Dysphagia Nausea vomiting and diarrhea RUQ abdominal pain Nausea Lower abdominal pain Loose stools Globus sensation Chronic cough Encounter for pre-operative cardiovascular clearance History of staph infection Hoarseness Thoracic aortic aneurysm Hypertension Atypical angina Dyspnea Abnormal ECG Pain in right lower leg Edema of right lower leg Dizziness Sore throat Dysuria URI, acute Encounter for immunization Sleep disorder Cholelithiasis Anxiety CAD (coronary artery disease) Hypomagnesemia Impetigo Family history of seizure in brother Murmur GERD (gastroesophageal reflux disease) COPD exacerbation Palpitation Screening, lipid Screening for diabetes mellitus MVP (mitral valve prolapse) Pre-syncope Chest pain Surgical History (Updated 03/19/25 @ 10:19 by GERI Jefferson) History of tonsillectomy and adenoidectomy S/P TAVR (transcatheter aortic valve replacement) History of heart artery stent S/P AVR (aortic valve replacement) Social History (Updated 04/13/25 @ 21:49 by Sorin Wahl APRN) Smoking Status: Current every day smoker smoking status start date: As a teenager years smoked: 35 quit status: not considering quitting Tobacco counseling given: provider counseling and counseling >10 minutes alcohol intake: current alcohol intake frequency: a few times a month counseling given: Yes counseling provided: provider counseling substance use type: denies use current occupational status: employed Travel in the last 8 weeks?: None Have you lived/traveled outside [place] in past 30 days?: No Contact w/someone who lives/traveled outside US past 30 days?: No Exposure to someone with infectious disease in past 14 days?: No Do you have a fever (greater than 100.4 F or 38 C)?: No Have you tested positive for COVID-19?: No Exposed to someone with COVID-19 in past 14 days?: No Do you have a sore throat?: No Do you have a cough?: No Do you have any weakness?: No Are you experiencing any nausea/vomitting?: No Do you have any diarrhea?: No Are you experiencing any unusual bleeding?: No Do you have any muscle aches/pain?: No Do you have any abdominal pain?: No Are you experiencing loss of taste or smell?: No Other Medical History Have you received the Flu Vaccine for this season: No Have you received the Pneumonia Vaccine: Yes Review of Systems Review of Systems Review of systems:: pertinent systems reviewed and negative unless documented below Constitutional Constitutional: Reports as per HPI Comments: Patient on oxygen does not appear to be in severe distress able to make good eye contact and able to speak in complete sentences wearing oxygen Eyes Eyes: Reports as per HPI ENT Ears, Nose, Mouth, and Throat: Reports as per HPI *Cardiovascular Cardiovascular: Reports as per HPI, Reports dyspnea and Reports dyspnea on exertion *Respiratory Respiratory: Reports as per HPI, Reports dyspnea, Reports dyspnea on exertion and Reports wheezing *Gastrointestinal Gastrointestinal: Reports as per HPI, Reports dyspepsia and Reports loose stools *Genitourinary Genitourinary: Reports as per HPI Comments: During coughing leaks has to wear a pad *Musculoskeletal Musculoskeletal: Reports as per HPI Integumentary/Breasts Skin/Breast: Reports as per HPI *Neurologic Neurologic: Reports as per HPI Psychiatric Psychiatric: Reports as per HPI Endocrine Endocrine: Reports as per HPI Comments: There is weight loss Hematologic/Lymphatic Hematologic/Lymphatic: Reports as per HPI Allergic/Immunologic Allergic/Immunologic: Reports wheezing Meds Home Medications and Allergies Home Medications ?Medication ?Instructions ?Recorded ?Confirmed ?Type nebulizer accessories #1 ea 03/22/23 04/13/25 Rx nebulizers #1 ea 03/22/23 04/13/25 Rx clopidogrel 75 mg tablet 75 mg PO DAILY #30 tabs 03/0504/13/25 Rx metoprolol tartrate 50 mg tablet 50 mg PO BID 90 days #180 tabs 01/09/25 04/13/25 Rx fluticasone fur. 200 mcg-umeclid 1 inh inhalation HUNG Y #60 ea 02/13/25 04/13/25 Rx 62.5 mcg-vilant 25 mcg inhalat.powder (Trelegy Ellipta) furosemide 20 mg tablet 20 mg PO DAILYP PRN Edema 04/14/25 History levocetirizine 5 mg tablet 5 mg PO DAILY #30 tabs 03/0504/13/25 Rx omeprazole 40 mg capsule,delayed 40 mg PO DAILY #30 ca ps 03/19/25 04/14/25 Rx release albuterol sulfate 90 mcg/actuation 2 puff inhalation Q 4HP PRN 04/14/25 04/14/25 History aerosol inhaler (Ventolin HFA) Shortness Of Breath aspirin 81 mg chewable tablet 81 mg PO DAILY 04/14/25 04/14/25 History atorvastatin 80 mg tablet 80 mg PO HS 04/14/25 5 History trazodone 50 mg tablet 50 mg PO HS 04/14/25 5 History New Prescriptions to Start Prescriptions: Allergies Allergy/AdvReac Type Severity Reaction Status Date / Time codeine Allergy Rash Verified 04/13/25 17:09 levofloxacin AdvReac Rash Verified 04/13/25 17:09 Exam Data for Last 24 hours Vital signs and Labs for Last 24 Hours: Temp Pulse Resp BP Pulse Ox O2 Del Method O2 Flow Rate 98.2 F 74 18 144/91 H 94 L Nasal Cannula 4 04/13/25 20:39 04/13/25 20:39 04/13/25 20:39 04/13/25 20:39 04/13/25 18:30 04/13/25 20:39 04/13/25 20:39 Laboratory Results - last 24 hr 04/13/25 16:39: WBC 7.0, RBC 5.59 H, Hgb 17.3 H, Hct 49.4 H, MCV 88.4, MCH 30.9, MCHC 35.0, RDW 13.9, Plt Count 173, MPV 9.7, Neut % (Auto) 52.6, Lymph % (Auto) 37.4, Tate % (Auto) 6.9, Eos % (Auto) 1.6, Baso % (Auto) 1.4, Neut # (Auto) 3.7, Lymph # (Auto) 2.6, Tate # (Auto) 0.5, Eos # (Auto) 0.1, Baso # (Auto) 0.1, Sodium 132 L, Potassium 3.2 L, Chloride 94 L, Carbon Dioxide 27, Anion Gap 14.2, BUN 4 L, Creatinine 0.40 L, Estimated Creat Clear 184, Estimated GFR 163, Est GFR ( Amer) 198, Glucose 105 H, Calcium 9.0, Magnesium 1.7, Total Bilirubin 0.6, AST 248 H, ALT 184 H, Alkaline Phosphatase 175 H, Troponin I < 0.01, Total Protein 7.7, Albumin 4.5, Globulin 3.2, Albumin/Globulin Ratio 1.4, Lipase 82, Plasma/Serum Alcohol 194 H 04/13/25 16:59: VBG pH 7.47 H, VBG pCO2 38.6, VBG pO2 64.1 H, VBG HCO3 27.4, VBG Total CO2 28.6 H, VBG O2 Saturation 93.7 H, VBG Base Excess 3.7 H, VBG Lactic Acid 3.0 H I & O for Last 24 hours: Intake & Output 04/11/25 04/12/25 04/13/25 04/14/25 05:59 05:59 05:59 05:59 Weight 170 lb Radiology Reports for the Last 24 Hours: Liver: Fatty liver and hepatomegaly Gallbladder and biliary ducts: Normal. No calcified stones. No ductal dilation. Pancreas: Normal. No ductal dilation. Spleen: Normal. No splenomegaly. Adrenal glands: Normal. No mass. Kidneys and ureters: Normal. No hydronephrosis. Stomach and bowel: Unremarkable. No obstruction. No mucosal thickening. Appendix: No evidence of appendicitis. Intraperitoneal space: Unremarkable. No free air. No significant fluid collection. Vasculature: Unremarkable. No abdominal aortic aneurysm. Lymph nodes: Unremarkable. No enlarged lymph nodes. Urinary bladder: Urinary bladder wall thickening which could indicate cystitis Reproductive: Unremarkable as visualized. Bones/joints: Unremarkable. No acute fracture. Soft tissues: Unremarkable. IMPRESSION: Constitutional Constitutional: mild distress, obese, chronically ill appearing and cooperative *Routine HEENT Exam Head: Present normocephalic, atraumatic (Slight raised knot to the back of the head from previous fall) and scalp tenderness Eye: Present EOMI, PERRL and normal accommodation ENT: Present mucous membranes moist, mucous membranes dry and oropharynx clear *Routine Neck Exam Neck: Present supple, full ROM and carotid bruit (+2/3 out of 6 bilateral carotid bruits) Routine Chest/Breast/Axilla Exam Comments: Patient reported no tenderness during exam of chest wall or breast *Routine Respiratory Exam Respiratory: Present prolonged expiratory phase, wheezes, distant breath sounds, normal respiratory effort, able to speak in complete sentences and symmetric chest movement Comments: Patient is on oxygen O2 sat staying above 90. Patient is able to talk in complete sentences. There is expiratory wheeze heard greater on the left than on the right. *Routine Cardiovascular Exam Cardiovascular: Present RRR, Normal S2 and murmur (A grade 2 out of 6 holistic systolic murmur) *Routine Abdominal Exam Abdominal: Present soft and normoactive bowel sounds Comments: No tenderness or guarding *Routine Rectal Exam Rectal:: deferred *Routine Genitalia Exam Genitalia:: deferred *Routine Extremities Exam Extremities: Present full ROM, pulses intact and normal capillary refill Comments: Extremities basically normal but the skin is slightly pink and red through the lower extremity, can like she does not have completely good circulation hard to describe Routine Back/Spine/Pelvis Exam Back/Spine: Present full ROM Comments: No issues with her back I did not stand her up and walk her but I was able to move her in the bed she is able to sit up showing no signs of back pain or injury *Routine Skin Exam Skin: Present intact, erythema and dry Comments: Kind of thin red skin especially worse in the lower limbs. No signs of jaundice *Routine Neurological Exam Neurological: Present alert, oriented X3, CN II-XII intact, normal reflexes, moving all extremities, normal tone, hearing grossly intact and normal speech Comments: Even though the patient's alcohol content shows that she is intoxicated and there is no signs of neurological deficit., Equal bilateral strength follows commands well no signs of tremor Routine Psychiatric Exam Psychiatric: Present normal affect, normal thought process, cooperative and good insight Comments: Patient understands what she is doing to herself with her continued smoking and alcohol use., But did not express any desire to stop, or change to a healthier lifestyle H&P: Result Impressions 1. Alcohol abuse with falls. Normal alcohol content probably above 0.8, now with fatty liver and elevated liver functions 2. COPD now oxygen dependent long-term smoker with no plans on stopping 3. Mild to moderate cardiovascular disease with aortic valve replacement noting bruit in both carotids. And also murmur holistic systolic 4. During sleep hypoxia's lowest into the 60 percentile question whether just not breathing needing CPAP or BiPAP here in the future. Imaging and Cardiology CT scan - abdomen: Additional comments: Liver: Fatty liver and hepatomegaly Gallbladder and biliary ducts: Normal. No calcified stones. No ductal dilation. Pancreas: Normal. No ductal dilation. Spleen: Normal. No splenomegaly. Adrenal glands: Normal. No mass. Kidneys and ureters: Normal. No hydronephrosis. Stomach and bowel: Unremarkable. No obstruction. No mucosal thickening. Appendix: No evidence of appendicitis. Intraperitoneal space: Unremarkable. No free air. No significant fluid collection. Vasculature: Unremarkable. No abdominal aortic aneurysm. Lymph nodes: Unremarkable. No enlarged lymph nodes. Urinary bladder: Urinary bladder wall thickening which could indicate cystitis Reproductive: Unremarkable as visualized. Bones/joints: Unremarkable. No acute fracture. Soft tissues: Unremarkable. IMPRESSION: Patient noted with aortic aneurysm thoracic area this has been changed to an enlarged aorta Assessment and Plan *Assessment and plan (1) Acute exacerbation of chronic obstructive pulmonary disease: Status: Acute Category: Medical Code(s): J44.1 - Chronic obstructive pulmonary disease with (acute) exacerbation (2) Hypoxia: Status: Acute Category: Medical Code(s): R09.02 - Hypoxemia (3) Acute bronchitis: Status: Acute Qualifiers: Bronchitis organism: other organism Qualified Code(s): J20.8 - Acute bronchitis due to other specified organisms Category: Medical Code(s): J20.9 - Acute bronchitis, unspecified (4) Alcoholism: Status: Acute Category: Medical Code(s): F10.20 - Alcohol dependence, uncomplicated (5) Elevated liver enzymes: Status: Acute Category: Medical Code(s): R74.8 - Abnormal levels of other serum enzymes (6) Fatty liver: Status: Acute Category: Medical Code(s): K76.0 - Fatty (change of) liver, not elsewhere classified (7) Post-tussive emesis: Status: Acute Category: Medical Code(s): R11.10 - Vomiting, unspecified (8) Tobacco use: Status: Acute Category: Social Hx Code(s): Z72.0 - Tobacco use Plan Discussed with ER physician, request admission for treatment of alcohol induced hepatitis, elevated liver enzymes, COPD exacerbation. I agreed to admit for observation and further management. Initiated on oxygen. Monitoring serial liver enzymes. Problems addressed as follows: 1. Planning on patient to be admitted. Will evaluate for any signs of alcohol withdrawal., Continue to evaluate liver functions during this stay., Contact case management to see if there is any type of counseling that can be given to the patient about smoking and alcohol use with her current condition. 2. Pulmonary toileting with nebs and oxygen due to increased oxygen need., 3. Patient is noted is having carotid bruits and systolic murmur in the past. Has been seen by cardiology in the past with no new edema at this point in time and no increase in dyspnea with chest pain. Will continue to evaluate cardiac needs adjust medication as needed. Initiated on oxygen. Goal sats greater 90%. Initiate DuoNebs every 6 hours as needed. Currently on 2 L oxygen Chest x-ray on admission with no acute consolidation. Presentation most consistent with COPD exacerbation. Received methylprednisolone in the ER. Will initiate doxycycline 100 mg twice daily. - Repeat CBC, CMP, magnesium ordered for the morning. Full comprehensive panel negative - White count normal at 7. Hemoglobin 17.3 Kidney function normal on presentation with BUN 4, creatinine 0.4. Liver enzymes elevated with AST 248, ALT 184, alk phos 175. Consistent with her alcohol use and mild alcohol induced hepatitis
[2025-04-13 20:47] LABS: Troponin I 0.02 ng/ml (0.00-0.034)
[2025-04-13 21:05] LABS: Reflex Lactic Add Lactic Reflex
[2025-04-13 21:43] LABS: Microscopic, Urine URINE MICROSCOPIC (MICROSCOPIC)
[2025-04-13 21:54] LABS: Bilirubin,Urine Negative (Negative); Color,Urine YELLOW (Yellow); Glucose,Urine (UA) Negative (Negative); Ketones,Urine TRACE (Negative); Leukocyte Esterase,Urine Negative (Negative); PH,Urine 6.0 (5.0-8.5); Protein,Urine Negative (Negative); Specific Gravity, Urine <= 1.005 (1.005-1.030); Urobilinogen,Urine 0.2 EU/dl (0.2)
[2025-04-13 22:01] LABS: Bacteria,Urine Trace /lpf; Barbiturates Screen,Urine Negative ng/ml (<200)
[2025-04-13 22:02] LABS: Amphetamine/Metha Screen,Urine Negative ng/ml (<1000); Benzodiazepines Screen,Urine Negative ng/ml (<200)
[2025-04-13 22:04] LABS: Methadone Screen,Urine Negative ng/ml (<300)
[2025-04-13 22:05] LABS: Opiate Screen,Urine Negative ng/ml (<300); Phencyclidine Screen,Urine Negative ng/ml (<25)
[2025-04-13] MEDS: TRAZODONE 50MG TABLET 50 MG PO (22:20)
[2025-04-13] MEDS: ATORVASTATIN 40MG TABLET 80 MG PO (22:20)
[2025-04-13] MEDS: METOPROLOL TARTRATE 50MG TABLET 50 MG PO (22:20)
[2025-04-14] VITALS: BP 112/71; PULSE 68; PULSE 70; RESP 21; TEMP 36.8; O2SAT 91
[2025-04-14 01:30] LABS: Lactic Acid Follow Up (RFLX 1) 2.2 mmol/L (0.7-2.1)
[2025-04-14 01:56] LABS: Troponin I < 0.01 ng/ml (0.00-0.034)
[2025-04-14 03:07] LABS: Reflex Lactic (2 hrs) Add Lactic Reflex
--- NOTE | 2025-04-14 03:56 | PC.NURSE ---
Patient alert and oriented x4. Speech is clear, appropriate, and coherent. Patient is on oxygen via nasal cannula at 2L. Patient is Q4hr CIWA checks. Patient has scored under 8 both CIWA checks. Patient was given a sandwich and snacks upon request. Patient took ordered medication without issues. Patient denies pain, discomfort, or additional needs at this time. Patient is currently in room resting. No needs or complaints voiced at this time.
[2025-04-14 04:00] VITALS: BP 114/68; PULSE 70; PULSE 74; RESP 21; TEMP 36.7; O2SAT 96; BMI 27.4
[2025-04-14 06:00] LABS: Hematocrit 53.9 % (37.0-47.0); Hemoglobin 17.8 g/dL (12.2-16.2); Immature Granulocytes % 0.5 %; Mean Corpuscular HGB Conc 33.0 g/dL (31.8-35.4); Mean Corpuscular Hemoglobin 30.1 pg (27.0-31.2); Mean Corpuscular Volume 91.0 fl (81-99); Nucleated Red Blood Cells % 0 %; Platelet Count 169 K/mm3 (142-424); Red Blood Count 5.92 M/mm3 (4.20-5.40); Red Cell Distribution Width-SD 46.5 fL; White Blood Count 3.9 K/mm3 (4.8-10.8)
[2025-04-14 06:04] LABS: Albumin Level 4.5 g/dl (3.5-5.0); Chloride 92 mmol/L (98-107); Potassium 3.7 mmoL/L (3.5-5.1); Sodium 130 mmol/L (136-145)
[2025-04-14 06:07] LABS: Alanine Aminotransferase 189 U/L (12-78); Albumin/Globulin Ratio 1.5 (1.1-1.8); Alkaline Phosphatase 165 U/L (38-126); Anion Gap 10.7 mEq/L (5-15); Aspartate Amino Transferase 206 U/L (14-36); Bilirubin,Total 0.8 mg/dl (0.2-1.3); Blood Urea Nitrogen 8 mg/dl (7-17); Calcium 9.3 mg/dl (8.4-10.2); Carbon Dioxide 31 mmol/L (22.0-30.0); Creatinine Clearance Estimated 168 mL/min (50-200); Creatinine,Serum 0.40 mg/dl (0.52-1.04); Estimated Glomerular Filt Rate 163 ml/min (>60); GFR (African American) 198 ML/MIN (>60); Globulin 3.1 g/dL (1.3-3.2); Glucose 293 mg/dl (74-100); Lipase 68 U/L (23-300); Magnesium 1.9 mg/dl (1.6-2.3); Total Protein,Serum 7.6 g/dl (6.3-8.2)
[2025-04-14 06:08] LABS: Cholesterol 228 mg/dl (140-200); Triglycerides 67 mg/dl (30-150)
[2025-04-14 06:10] LABS: Lactic Acid Follow up (RFLX 2) 2.9 mmol/L (0.7-2.1)
[2025-04-14 06:16] LABS: HDL Cholesterol 121 mg/dl (40-60)
[2025-04-14 08:00] VITALS: BP 127/70; PULSE 78; PULSE 82; RESP 16; TEMP 36.6; O2SAT 94
[2025-04-14] MEDS: THIAMINE 100MG TABLET 100 MG PO (09:40)
[2025-04-14] MEDS: FOLIC ACID 1MG TABLET 1 MG PO (09:41)
--- NOTE | 2025-04-14 11:14 | HMH.PHAINT1 ---
Pharmacy Intervention Comments: MEDICATION RECONCILIATION COMPLETED ON PATIENT USING EXTERNAL FILL HISTORY FROM PHARMACY AND LIST FROM CARDIOLOGY/PCP OFFICES. -RANJITH BECKHAMD
[2025-04-14 12:00] VITALS: BP 133/80; PULSE 75; PULSE 87; RESP 16; TEMP 36.4; O2SAT 91
[2025-04-14] MEDS: DOXYCYCLINE HYCL 100 MG TABLET PO ×2 (13:16→20:43)
[2025-04-14] MEDS: ASPIRIN 81MG CHEWABLE TABLET 81 MG PO (13:16)
[2025-04-14] MEDS: CLOPIDOGREL 75MG TAB 75 MG PO (13:16)
--- NOTE | 2025-04-14 13:20 | PC.NURSE ---
patient was taken off O2 at 1210, rechecked O2 at 1315, O2 is 96% on room air.
[2025-04-14] MEDS: FLUTICASONE/UMECLIDIN/VILANTER 200/62.5/25MCG INHALER 1 PUFF IH (13:40)
[2025-04-14 16:00] VITALS: BP 100/60; PULSE 82; PULSE 86; RESP 17; TEMP 36.7; O2SAT 98
[2025-04-14] MEDS: MULTIVITAMIN TABLET 1 EACH PO (16:46)
--- NOTE | 2025-04-14 17:04 | P.PN_ITS ---
Subjective *Date: 04/14/25 *Time: 17:04 Interval history: Able to wean to room air on morning rounds. Still has significant cough. Denies significant tremor or withdrawal symptoms. Extensive discussion about her drinking on rounds. States she has been been an alcoholic since but she is functional and does not impact her daily life. No plans to stop drinking at this time. He continues to smoke, has decreased to 1/2 pack daily. Has smoked since she was 12 per report. Denies chest pain, nausea, vomiting. Medical Exam Vital signs and Labs for Last 24 Hours: Vital Signs Temp Pulse Pulse Resp BP BP Pulse Ox 04/14/25 16:00 98.1 F 82 17 100/60 L 98 04/14/25 14:51 04/14/25 13:00 04/14/25 12:00 75 04/14/25 12:00 97.6 F 87 16 133/80 91 L 04/14/25 11:00 04/14/25 09:00 04/14/25 08:00 04/14/25 08:00 82 04/14/25 08:00 97.8 F 78 16 127/70 94 L 04/14/25 06:41 04/14/25 05:00 04/14/25 04:00 98.1 F 74 21 114/68 96 04/14/25 04:00 70 04/14/25 03:00 04/14/25 00:56 04/14/25 00:00 98.2 F 68 21 112/71 91 L 04/14/25 00:00 70 04/13/25 22:54 04/13/25 21:21 97.9 F 75 21 144/91 H 94 L 04/13/25 20:39 98.2 F 74 18 144/91 H 04/13/25 20:11 70 04/13/25 19:50 93 L 04/13/25 18:30 70 21 115/76 94 L 04/13/25 18:00 64 16 101/66 L 95 04/13/25 17:49 65 16 115/57 L 97 O2 Del Method O2 Flow Rate 04/14/25 16:00 Room Air 04/14/25 14:51 Room Air 04/14/25 13:00 Room Air 04/14/25 12:00 04/14/25 12:00 Room Air 04/14/25 11:00 Nasal Cannula 04/14/25 09:00 Nasal Cannula 04/14/25 08:00 Nasal Cannula 04/14/25 08:00 04/14/25 08:00 Nasal Cannula 2 04/14/25 06:41 Nasal Cannula 1 04/14/25 05:00 Nasal Cannula 1 04/14/25 04:00 Nasal Cannula 2 04/14/25 04:00 04/14/25 03:00 Nasal Cannula 1 04/14/25 00:56 Nasal Cannula 1 04/14/25 00:00 Nasal Cannula 2 04/14/25 00:00 04/13/25 22:54 Nasal Cannula 1 04/13/25 21:21 Nasal Cannula 4 04/13/25 20:39 Nasal Cannula 4 04/13/25 20:11 04/13/25 19:50 Nasal Cannula 2 04/13/25 18:30 04/13/25 18:00 T-Piece 04/13/25 17:49 T-Piece Intake and Output 04/14/25 04/14/25 04/14/25 07:59 15:59 23:59 Intake Total 0 / 720 720 / 720 Output Total 150 / 150 0 / 150 0 / 150 Balance -150 / 570 720 / 570 0 / 570 Intake: Intake, Oral Amount 0 / 720 720 / 720 Output: Output, Urine Amount 150 / 150 0 / 150 0 / 150 Other: Number of Unmeasured Voids 2 1 1 Weight 70.307 kg Patient Weight 04/14/25 23:59 Weight 70.307 kg Laboratory Results - last 24 hr 04/13/25 16:39: PT 11.0, INR 0.99, APTT 26.7, Sodium 132 L, Potassium 3.2 L, Chloride 94 L, Carbon Dioxide 27, Anion Gap 14.2, BUN 4 L, Creatinine 0.40 L, Estimated Creat Clear 184, Estimated GFR 163, Est GFR ( Amer) 198, Glucose 105 H, Calcium 9.0, Phosphorus 3.7, Magnesium 1.7 04/13/25 16:39: Magnesium 1.8, Total Bilirubin 0.6, AST 248 H, ALT 184 H, Alkaline Phosphatase 175 H, Troponin I < 0.01, Total Protein 7.7, Albumin 4.5, Globulin 3.2, Albumin/Globulin Ratio 1.4, Lipase 82, Plasma/Serum Alcohol 194 H 04/13/25 16:59: VBG pH 7.47 H, VBG pCO2 38.6, VBG pO2 64.1 H, VBG HCO3 27.4, VBG Total CO2 28.6 H, VBG O2 Saturation 93.7 H, VBG Base Excess 3.7 H, VBG Lactic Acid 3.0 H 04/13/25 19:36: Chlamy pneumoniae PCR Not detected, Adenovirus (PCR) Not detected, B. pertussis DNA (PCR) Not detected, Coronavirus OC43 (PCR) Not detected, Coronavirus HKU1 (PCR) Not detected, Coronavirus 229E (PCR) Not detected, SARS-CoV-2 (PCR) Not detected, Coronavirus NL63 (PCR) Not detected, Human Metapneumovir PCR Not detected, Influenza A (H1) PCR Not detected, Influ A (H1N1/09) PCR Not detected, Influenza A (H3) PCR Not detected, Influenza Type A (PCR) Not detected, Influenza Type B (PCR) Not detected, M. pneumoniae (PCR) Not detected, Parainfluenza 1 (PCR) Not detected, Parainfluenza 2 (PCR) Not detected, Parainfluenza 3 (PCR) Not detected, Parainfluenza 4 (PCR) Not detected, RSV (PCR) Not detected, Entero/Rhino (PCR) Not detected 04/13/25 19:57: Troponin I 0.02 04/13/25 21:35: Urine Color Yellow, Urine Appearance Clear, Urine pH 6.0, Ur Specific [place] <= 1.005, Urine Protein Negative, Urine Glucose (UA) Negative, Urine Ketones Trace, Urine Blood Trace-l, Urine Nitrate Negative, Urine Bilirubin Negative, Urine Urobilinogen 0.2, Ur Leukocyte Esterase Negative, Urine RBC 3-5, Urine WBC 3-5, Ur Squamous Epith Cells 5-10, Urine Bacteria Trace, Urine Opiates Screen Negative, Urine Methadone Screen Negative, Ur Barbituates Screen Negative, Ur Phencyclidine Scrn Negative, Ur Amphetamines Screen Negative, U Benzodiazepines Scrn Negative, Urine Cocaine Screen Negative, U Marijuana (THC) Screen Negative 04/14/25 01:01: Lactate 2.2 H, Troponin I < 0.01 04/14/25 05:30: WBC 3.9 L D, RBC 5.92 H, Hgb 17.8 H, Hct 53.9 H, MCV 91.0, MCH 30.1, MCHC 33.0, RDW 13.9, Plt Count 169, MPV 9.8, Neut % (Auto) 78.8, Lymph % (Auto) 17.0, [place] % (Auto) 3.1, Eos % (Auto) 0.3, Baso % (Auto) 0.3, Neut # (Auto) 3.1, Lymph # (Auto) 0.7, [place] # (Auto) 0.1, Eos # (Auto) 0.0, Baso # (Auto) 0.0, Sodium 130 L, Potassium 3.7, Chloride 92 L, Carbon Dioxide 31 H, Anion Gap 10.7, BUN 8 D, Creatinine 0.40 L, Estimated Creat Clear 168, Estimated GFR 163, Est GFR ( Amer) 198, Glucose 293 H D, Lactate 2.9 H, Calcium 9.3, Magnesium 1.9, Total Bilirubin 0.8, AST 206 H, ALT 189 H, Alkaline Phosphatase 165 H, Total Protein 7.6, Albumin 4.5, Globulin 3.1, Albumin/Globulin Ratio 1.5, Triglycerides 67, Cholesterol 228 H, LDL Cholesterol Direct 78.05 L, VLDL Cholesterol 13, HDL Cholesterol 121 H, Cholesterol/HDL Ratio 1.9, Lipase 68 I & O for Labs for Last 24 Hours: Intake & Output 04/11/25 04/12/25 04/13/25 04/14/25 23:59 23:59 23:59 23:59 Intake Total 720 / 720 Output Total 150 / 150 Balance 570 / 570 Weight 69.808 kg 70.307 kg Constitutional: Present no acute distress, average body habitus, chronically ill appearing and cooperative Head: Present atraumatic and normocephalic ENT: Present normal exam Respiratory: Present prolonged expiratory phase, rhonchi, wheezes and normal respiratory effort; Absent crackles Cardiac: Present Reg Rate and Rhythm GI: Present soft and normal bowel sounds; Absent distention or tenderness Extremities: Present normal inspection and full ROM Skin: Present intact; Absent erythema Neuro: Present Grossly Intact, alert, awake, oriented x 3 and moves all extremities Assessment and Plan *Assessment and plan (1) Acute exacerbation of chronic obstructive pulmonary disease: Status: Acute Category: Medical Code(s): J44.1 - Chronic obstructive pulmonary disease with (acute) exacerbation (2) Hypoxia: Status: Acute Category: Medical Code(s): R09.02 - Hypoxemia (3) Acute bronchitis: Status: Acute Qualifiers: Bronchitis organism: other organism Qualified Code(s): J20.8 - Acute bronchitis due to other specified organisms Category: Medical Code(s): J20.9 - Acute bronchitis, unspecified (4) Alcoholism: Status: Acute Category: Medical Code(s): F10.20 - Alcohol dependence, uncomplicated (5) Elevated liver enzymes: Status: Acute Category: Medical Code(s): R74.8 - Abnormal levels of other serum enzymes (6) Fatty liver: Status: Acute Category: Medical Code(s): K76.0 - Fatty (change of) liver, not elsewhere classified (7) Post-tussive emesis: Status: Acute Category: Medical Code(s): R11.10 - Vomiting, unspecified (8) Tobacco use: Status: Acute Category: Social Hx Code(s): Z72.0 - Tobacco use Plan 59-year-old female who presented with falling at home. Found to have elevated liver enzymes and concern for COPD exacerbation with new oxygen requirement. Weaned to room air today. Continue to monitor overnight. Clinically improving. Problems addressed as follows: COPD exacerbation - Initiate DuoNebs every 6 hours as needed, resume home Trelegy inhaler daily - Initiate doxycycline 100 mg twice daily x 5 days - Initiate prednisone 40 mg daily for 5 days - CBC, CMP, magnesium ordered for the morning. - White count normal at 3.9, hemoglobin 17.8. Transaminitis Alcohol dependence - LFTs improving today. Bilirubin 0.8, AST 206, ALT 189, alk phos 165. Repeat LFTs ordered for the morning. - Kidney function normal with BUN 8, creatinine 0.4 - Electrolytes replaced per protocol. Potassium 3.7 and magnesium 1.9. Sodium improving at 130 - Sodium low likely due to her alcoholism as she drinks at least a sixpack a day of beer. Would be consistent with beer potomania - No signs of alcohol withdrawal at this time. Continue CIWA protocol. Valium if needed per protocol. Tobacco use disorder: Nicotine patch as needed Sleep disorder: Resume home trazodone 50 mg nightly Full code Regular diet Lovenox subcu daily
--- NOTE | 2025-04-14 17:17 | PC.NURSE ---
patient is a/o x4 and has been on room air for majority of the shift with O2 sats above 90%. patient has ambulated in the halls independently. tolerating diet. CIWA's have been 0. no c/o pain or SOB. VSS. patient is currently sitting up in bed eating dinner, call light within reach, seizure pads in place. no further requests at this time.
[2025-04-14 20:00] VITALS: BP 121/76; PULSE 80; PULSE 87; RESP 16; TEMP 37.1; O2SAT 91
[2025-04-14] MEDS: ATORVASTATIN 40MG TABLET 80 MG PO (20:43)
[2025-04-14] MEDS: METOPROLOL TARTRATE 50MG TABLET 50 MG PO (20:43)
[2025-04-14] MEDS: TRAZODONE 50MG TABLET 50 MG PO (20:43)
[2025-04-15] VITALS: BP 111/68; PULSE 70; RESP 18; TEMP 36.7; O2SAT 94
[2025-04-15 04:00] VITALS: BP 124/79; PULSE 66; PULSE 70; RESP 14; TEMP 37.1; O2SAT 91; BMI 27.4
--- NOTE | 2025-04-15 04:22 | PC.NURSE ---
patient is alert and oriented, ambulates in room independently, tolerating room air with O2 sats remaining >90%, no complaints of pain this shift, CIWAs have been 0-1, seizure pads in place, call button in reach
[2025-04-15 06:05] LABS: Hematocrit 50.4 % (37.0-47.0); Hemoglobin 16.7 g/dL (12.2-16.2); Immature Granulocytes % 0.3 %; Mean Corpuscular HGB Conc 33.1 g/dL (31.8-35.4); Mean Corpuscular Hemoglobin 30.1 pg (27.0-31.2); Mean Corpuscular Volume 90.8 fl (81-99); Nucleated Red Blood Cells % 0 %; Platelet Count 150 K/mm3 (142-424); Red Blood Count 5.55 M/mm3 (4.20-5.40); Red Cell Distribution Width-SD 46.9 fL; White Blood Count 7.6 K/mm3 (4.8-10.8)
[2025-04-15 06:16] LABS: Albumin Level 3.9 g/dl (3.5-5.0); Chloride 98 mmol/L (98-107); Potassium 3.7 mmoL/L (3.5-5.1); Sodium 135 mmol/L (136-145)
[2025-04-15 06:19] LABS: Alanine Aminotransferase 119 U/L (12-78); Albumin/Globulin Ratio 1.4 (1.1-1.8); Alkaline Phosphatase 133 U/L (38-126); Anion Gap 8.7 mEq/L (5-15); Aspartate Amino Transferase 103 U/L (14-36); Bilirubin,Total 1.1 mg/dl (0.2-1.3); Blood Urea Nitrogen 9 mg/dl (7-17); Calcium 9.1 mg/dl (8.4-10.2); Carbon Dioxide 32 mmol/L (22.0-30.0); Creatinine Clearance Estimated 168 mL/min (50-200); Creatinine,Serum 0.40 mg/dl (0.52-1.04); Estimated Glomerular Filt Rate 163 ml/min (>60); GFR (African American) 198 ML/MIN (>60); Globulin 2.8 g/dL (1.3-3.2); Glucose 86 mg/dl (74-100); Magnesium 1.7 mg/dl (1.6-2.3); Total Protein,Serum 6.7 g/dl (6.3-8.2)
[2025-04-15] MEDS: FLUTICASONE/UMECLIDIN/VILANTER 200/62.5/25MCG INHALER 1 PUFF IH (06:21)
[2025-04-15 08:00] VITALS: BP 111/72; PULSE 75; RESP 18; TEMP 36.4; O2SAT 97
--- NOTE | 2025-04-15 08:32 | P.DS_ITS ---
<Statement entered by Albert Schmidt MD - 04/15/25 13:32> Rounded on patient after nurse practitioner. Personally examined and interviewed patient. Agree with exam findings and care plan as documented. General Admission date:: 04/13/25 Discharge date: 04/15/25 HPI HPI HPI: This 59-year-old female with a very long history of smoking, has become more short of breath requiring oxygen., Recently had an overnight pulse ox which showed that 88% of the time her oxygen saturations were less than 88% and sometimes as low as 65%. .Patient continues to smoke says she is cut back from 2 packs a day to half a pack a day patient is also alcohol content was 1.98.. But she is completely alert oriented making sense while I am talking to her during the exam so this may be her steady state. All liver functions are elevated more than 3 times normal. Patient also notes that she has a gallbladder that needs to come out and had been referred to having this evaluated there was also a note about a 2 and a 0.5 cm stone near the neck. Patient also feels like she is aspirating at night and so some of this respiratory problem might actually be aspiration of stomach contents once sleeping. She notes that it so bad she usually vomits about 4 times a week especially when she gets coughing. Patient notes that she had an DC approximately 2 years ago having stent placed and also has a pig aortic valve. Original notes listed a thoracic aortic aneurysm but new or notes shows just a widening of the aorta. Having spoken with the ER provider and during my exam hearing the wheezing socia lly and expiration. Also noting that you are able to hear in approximately 2 or 3 out of 6 bilateral carotid bruit and a cardiac murmur systolic. Also noting approximately a 20 pound to 25 pound weight loss in the last year. With the alcoholism noting that the liver functions are elevated. Past medical history includes fatty liver, COPD with pneumonia DC requiring stent and also valve replacement. Most recent cardiac catheterization note from 2024 showed mild to moderate vessel disease. Also in 2023 her left ventricular ejection fraction was 55% Planning on having the patient evaluated make sure she does not have any alcohol withdrawals. Possibly cardiac consult making sure that we do not have increasing troponins. Try to provide her pulmonary toileting and return her back to her baseline not requiring as much oxygen. Have talked to the patient about her CODE STATUS she really has made no decision as far as letting anybody know her wishes are making sure she had a medical power of export coordinator we discussed this issue presently she will continue as a full code. But she made no reference that she had any indication of stopping smoking or stopping the alcohol. Extensive teaching was done on liver damage related to overconsumption of alcohol also. Also to take note there is a bump on the back of the patient's head related from where she has fallen recently no other signs of injuries no other reports of pain Hospital Course Hospital Course Hospital Course: Ms. Alves is a 59-year-old female who presented to the emergency department after falling at home. She was found to have elevated liver enzymes and concern for a COPD exacerbation with need for oxygen supplementation. Patient does currently have O2 at home as needed. Patient was started on doxycycline 100 mg twice daily, prednisone 40 mg daily, DuoNebs every 6 hours as needed, and Trelegy inhaler. She was found to have significant improvement in her COPD symptoms, maintaining O2 saturation above 92% on room air. She had multiple x-rays in the ED which did not show any traumatic injuries. #COPD exacerbation - Patient received DuoNebs every 6 hours as needed during admission, will resume home Trelegy inhaler daily and albuterol inhaler as needed. - Patient also has nebulizer treatments at home to use every 4 hours as needed and supplemental O2 as needed. - Initiate doxycycline 100 mg twice daily x 5 days - Initiate prednisone 40 mg daily for 5 days - WBC remained stable during admission, 7.6-day of discharge. No anemia, electrolyte abnormalities, kidney function within normal limits, BUN 9, creatinine 0.4. - Patient to follow-up with pulmonology on outpatient basis. #Transaminitis #Alcohol dependence - LFTs improved day of discharge, AST 103, ALT 119. Patient should follow with PCP for continued monitoring of liver enzymes. - No signs of alcohol withdrawal during admission, CIWA continued to be 0. - Continue omeprazole 40 mg daily for GERD. #Tobacco use disorder: Smoking cessation discussed with patient, not interested in nicotine patches at this time. #Sleep disorder: Resume home trazodone 50 mg nightly at discharge. #Hypertension: Continue metoprolol 50 mg twice daily, aspirin 81 mg daily, and atorvastatin 80 mg at bedtime. Patient vital signs stable during admission, BP at discharge 111/72. Total time spent on discharge 35 minutes in counseling, documentation, chart review, and direct care with patient. Exam Data for Last 24 hours Vital signs and Labs for Last 24 Hours: Temp Pulse Resp BP Pulse Ox O2 Del Method O2 Flow Rate 98.7 F 66 14 124/79 91 L Room Air 2 04/15/25 04:00 04/15/25 04:00 04/15/25 04:00 04/15/25 04:00 04/15/25 04:00 04/15/25 06:42 04/14/25 08:00 Laboratory Results - last 24 hr 04/15/25 05:26: WBC 7.6 D, RBC 5.55 H, Hgb 16.7 H, Hct 50.4 H, MCV 90.8, MCH 30.1, MCHC 33.1, RDW 14.1, Plt Count 150, MPV 10.2, Neut % (Auto) 60.7, Lymph % (Auto) 33.9, [place] % (Auto) 3.2, Eos % (Auto) 1.1, Baso % (Auto) 0.8, Neut # (Auto) 4.6, Lymph # (Auto) 2.6, [place] # (Auto) 0.2, Eos # (Auto) 0.1, Baso # (Auto) 0.1, Sodium 135 L, Potassium 3.7, Chloride 98, Carbon Dioxide 32 H, Anion Gap 8.7, BUN 9, Creatinine 0.40 L, Estimated Creat Clear 168, Estimated GFR 163, Est GFR ( Amer) 198, Glucose 86 D, Calcium 9.1, Magnesium 1.7 D, Total Bilirubin 1.1, AST 103 H D, ALT 119 H D, Alkaline Phosphatase 133 H, Total Protein 6.7, Albumin 3.9 D, Globulin 2.8, Albumin/Globulin Ratio 1.4 I & O for Last 24 hours: Intake & Output 04/12/25 04/13/25 04/14/25 04/15/25 23:59 23:59 23:59 23:59 Intake Total 942 / 1422 480 / 480 Output Total 150 / 150 Balance 792 / 1272 480 / 480 Weight 69.808 kg 70.307 kg 70.307 kg Constitutional Constitutional: no acute distress and cooperative *Routine HEENT Exam Head: Present normocephalic ENT: Present mucous membranes moist *Routine Neck Exam Neck: Present supple and full ROM *Routine Respiratory Exam Respiratory: Present wheezes (Expiratory), able to speak in complete sentences and symmetric chest movement; Absent respiratory distress or crackles *Routine Cardiovascular Exam Cardiovascular: Present RRR *Routine Abdominal Exam Abdominal: Present soft and normoactive bowel sounds; Absent tenderness *Routine Extremities Exam Extremities: Present full ROM; Absent edema *Routine Skin Exam Skin: Present intact and dry *Routine Neurological Exam Neurological: Present alert and oriented X3 Results Data Completed and Pending Labs on day of discharge: Labs from last 24 hours 04/15/25 05:26 WBC 7.6 D RBC 5.55 H Hgb 16.7 H Hct 50.4 H MCV 90.8 MCH 30.1 MCHC 33.1 RDW 14.1 Plt Count 150 MPV 10.2 Neut % (Auto) 60.7 Lymph % (Auto) 33.9 [place] % (Auto) 3.2 Eos % (Auto) 1.1 Baso % (Auto) 0.8 Neut # (Auto) 4.6 Lymph # (Auto) 2.6 [place] # (Auto) 0.2 Eos # (Auto) 0.1 Baso # (Auto) 0.1 Sodium 135 L Potassium 3.7 Chloride 98 Carbon Dioxide 32 H Anion Gap 8.7 BUN 9 Creatinine 0.40 L Estimated Creat Clear 168 Estimated GFR 163 Est GFR ( Amer) 198 Glucose 86 D Calcium 9.1 Magnesium 1.7 D Total Bilirubin 1.1 AST 103 H D ALT 119 H D Alkaline Phosphatase 133 H Total Protein 6.7 Albumin 3.9 D Globulin 2.8 Albumin/Globulin Ratio 1.4 DS: Diagnosis Discharge Diagnosis (1) Acute exacerbation of chronic obstructive pulmonary disease: Status: Acute Code(s): J44.1 - Chronic obstructive pulmonary disease with (acute) exacerbation (2) Hypoxia: Status: Acute Code(s): R09.02 - Hypoxemia (3) Acute bronchitis: Status: Acute Code(s): J20.9 - Acute bronchitis, unspecified Qualifiers: Bronchitis organism: other organism Qualified Code(s): J20.8 - Acute bronchitis due to other specified organisms (4) Alcoholism: Status: Acute Code(s): F10.20 - Alcohol dependence, uncomplicated (5) Elevated liver enzymes: Status: Acute Code(s): R74.8 - Abnormal levels of other serum enzymes (6) Fatty liver: Status: Acute Code(s): K76.0 - Fatty (change of) liver, not elsewhere classified (7) Post-tussive emesis: Status: Acute Code(s): R11.10 - Vomiting, unspecified (8) Tobacco use: Status: Acute Code(s): Z72.0 - Tobacco use Meds Home Medications and Allergies Home Medications ?Medication ?Instructions ?Recorded ?Confirmed ?Type nebulizer accessories #1 ea 03/22/23 04/13/25 Rx nebulizers #1 ea 03/22/23 04/13/25 Rx clopidogrel 75 mg tablet 75 mg PO DAILY #30 tabs 03/0504/13/25 Rx metoprolol tartrate 50 mg tablet 50 mg PO BID 90 days #180 tabs 01/09/25 04/13/25 Rx fluticasone fur. 200 mcg-umeclid 1 inh inhalation HUNG Y #60 ea 02/13/25 04/13/25 Rx 62.5 mcg-vilant 25 mcg inhalat.powder (Trelegy Ellipta) furosemide 20 mg tablet 20 mg PO DAILYP PRN Edema 04/14/25 History levocetirizine 5 mg tablet 5 mg PO DAILY #30 tabs 03/0504/13/25 Rx omeprazole 40 mg capsule,delayed 40 mg PO DAILY #30 ca ps 03/19/25 04/14/25 Rx release albuterol sulfate 90 mcg/actuation 2 puff inhalation Q 4HP PRN 04/14/25 04/14/25 History aerosol inhaler (Ventolin HFA) Shortness Of Breath aspirin 81 mg chewable tablet 81 mg PO DAILY 04/14/25 04/14/25 History atorvastatin 80 mg tablet 80 mg PO HS 04/14/25 5 History trazodone 50 mg tablet 50 mg PO HS 04/14/25 5 History doxycycline hyclate 100 mg capsule 100 mg PO BID #7 ca ps 04/15/25 Rx fluticasone fur. 200 mcg-umeclid 1 inh inhalation HUNG Y 30 days #60 04/15/25 Rx 62.5 mcg-vilant 25 mcg ea inhalat.powder (Trelegy Ellipta) prednisone 20 mg tablet 40 mg (2 x 20 mg) PO DAILY 3 days 04/15/25 Rx #6 tabs New Prescriptions to Start Prescriptions: doxycycline hyclate AntoineLynne [id number] [Trelegy Ellipta] Lynne Schultz prednisone Jonny SchultzLynne Allergies Allergy/AdvReac Type Severity Reaction Status Date / Time codeine Allergy Rash Verified 04/13/25 17:09 levofloxacin AdvReac Rash Verified 04/13/25 17:09 Discharge Plan Disposition Patient Disposition: Home, Self-Care Condition: Fair Follow up Plan Follow up with: Sarah Alamo APRN [Primary Care Provider, Medical] - 04/17/25 1:00 pm Rubi Diego MD [Physician, Pulmonology] - 05/13/25 1:00 pm Prescriptions/Medication Reconciliation: New prednisone 20 mg Tablet 40 mg PO DAILY 3 Days Qty: 6 0RF Trelegy Ellipta 200-62.5-25 mcg Blister With Device 1 inh inhalation DAILY 30 Days Qty: 60 0RF doxycycline hyclate 100 mg capsule 100 mg PO BID Qty: 7 0RF Continued (DME) nebulizers Misc See Rx Instructions .MEDSUPPLY Qty: 1 0RF Rx Instructions: As directed (DME) nebulizer accessories Kit See Rx Instructions .MEDSUPPLY Qty: 1 0RF Rx Instructions: As directed metoprolol tartrate 50 mg tablet 50 mg PO BID 90 Days Qty: 180 0RF furosemide 20 mg tablet 20 mg PO DAILYP PRN (Reason: Edema) Patient Comments: TAKE 1 TABLET BY MOUTH ONCE DAILY. omeprazole 40 mg capsule,delayed release(DR/EC) 40 mg PO DAILY Qty: 30 2RF levocetirizine 5 mg tablet 5 mg PO DAILY Qty: 30 3RF clopidogrel 75 mg tablet 75 mg PO DAILY Qty: 30 3RF Trelegy Ellipta 200-62.5-25 mcg blister with device 1 inh inhalation DAILY Qty: 60 2RF atorvastatin 80 mg tablet 80 mg PO HS trazodone 50 mg tablet 50 mg PO HS aspirin 81 mg tablet,chewable 81 mg PO DAILY albuterol sulfate [Ventolin HFA] 90 mcg/actuation HFA aerosol inhaler 2 puff inhalation Q4HP PRN (Reason: Shortness Of Breath) Problem Reconciliation Problems Reviewed?: Yes Patient Discharge Instructions ACTIVITY: Continue current activity DIET: continue same diet Stand Alone Forms: [facility] Work Release Patient Instructions: Smoking Cessation Drugs: Nicotine Replacement Products, Acute Bronchitis, Alcohol Use Disorder Print Language: [place] Providers Primary Care Provider: Sarah Alamo Admit Provider: Albert Schmidt Attending Provider: Albert Schmidt
[2025-04-15] MEDS: FOLIC ACID 1MG TABLET 1 MG PO (08:45)
[2025-04-15] MEDS: DOXYCYCLINE HYCL 100 MG TABLET PO (08:45)
[2025-04-15] MEDS: METOPROLOL TARTRATE 50MG TABLET 50 MG PO (08:45)
[2025-04-15] MEDS: FUROSEMIDE 20MG TABLET 20 MG PO (08:45)
[2025-04-15] MEDS: ASPIRIN 81MG CHEWABLE TABLET 81 MG PO (08:45)
[2025-04-15] MEDS: THIAMINE 100MG TABLET 100 MG PO (08:45)
[2025-04-15] MEDS: CLOPIDOGREL 75MG TAB 75 MG PO (08:45)
--- NOTE | 2025-04-15 09:44 | SW/DCPLANNER ---
I spoke w/ this patient regarding plans once medically stable for discharge. Patient resides at home alone and does have family/friend assistance to go to the second floor of her home to bathe. Patient does not have health insurance and has been provided a Medicaid application to complete. Patient does not have a ride home. CM will set up the care a van for transportation this afternoon once medically stable for discharge. Per patient no further needs at this time. I did provide patient w/ [facility] Resource List.
--- NOTE | 2025-04-15 09:48 | P.CONS_ITS ---
History of Present Illness History of present illness: Ms. Alves is a 59-year-old female current smoker greater than 30 pack explained history carries a diagnosis of COPD at baseline Trelegy 200 inhaler presented today with primary complaints of dizziness and falls. Admits worsening respiratory symptoms and wheezing prior to this hospital admission. Otherwise admits stable stable symptom control on her inhaler therapy. Denies any exacerbations prior to this hospital admission in the last 12 months [facility] Disclaimer: The information contained in this section may have been updated after the patient was seen, as this information can be updated by other users. Medical History (Updated 04/15/25 @ 11:59 by Rubi Diego MD) Dyspnea on exertion O2 dependent Falling Alcoholism Localized swelling of right lower extremity Right ankle swelling Cellulitis of right lower leg Gallstone Dysphagia Nausea vomiting and diarrhea RUQ abdominal pain Nausea Lower abdominal pain Loose stools Globus sensation Chronic cough Encounter for pre-operative cardiovascular clearance History of staph infection Hoarseness Thoracic aortic aneurysm Hypertension Atypical angina Dyspnea Abnormal ECG Pain in right lower leg Edema of right lower leg Dizziness Sore throat Dysuria URI, acute Encounter for immunization Sleep disorder Cholelithiasis Anxiety CAD (coronary artery disease) Hypomagnesemia Impetigo Family history of seizure in brother Murmur GERD (gastroesophageal reflux disease) COPD exacerbation Palpitation Screening, lipid Screening for diabetes mellitus MVP (mitral valve prolapse) Pre-syncope Chest pain Surgical History (Updated 03/19/25 @ 10:19 by GERI Jefferson) History of tonsillectomy and adenoidectomy S/P TAVR (transcatheter aortic valve replacement) History of heart artery stent S/P AVR (aortic valve replacement) Social History (Updated 04/13/25 @ 21:49 by Sorin Wahl APRN) Smoking Status: Current every day smoker smoking status start date: As a teenager years smoked: 35 quit status: not considering quitting alcohol intake: current alcohol intake frequency: a few times a month counseling given: Yes counseling provided: provider counseling substance use type: denies use current occupational status: employed Travel in the last 8 weeks?: None Review of Systems Constitutional Constitutional: Denies anorexia, Reports body ache(s) and Denies fatigue Eyes Eyes: Denies eye discharge, Denies dry eyes, Denies irritation and Denies itchy eyes ENT Ears, Nose, Mouth, and Throat: Denies epistaxis, Denies facial pain, Denies lip swelling and Denies throat swelling *Cardiovascular Cardiovascular: Reports dyspnea and Reports dyspnea on exertion *Respiratory Respiratory: Denies change in phlegm color, Reports chest congestion, Reports cough, Reports dyspnea, Reports dyspnea on exertion, Denies excessive phlegm production, Denies hemoptysis, Denies pain on inspiration, Denies pain with cough and Denies wheezing *Gastrointestinal Gastrointestinal: Denies abdominal pain, Denies belching and Denies cramping *Musculoskeletal Musculoskeletal: Reports back pain, Reports myalgias and Reports other (No small joint swelling or Pain) *Neurologic Neurologic: Reports as per HPI Psychiatric Psychiatric: Denies homicidal ideation and Denies suicidal ideation Endocrine Endocrine: Denies fatigue and Denies heat intolerance Hematologic/Lymphatic Hematologic/Lymphatic: Denies easy bleeding and Denies lymphadenopathy Allergic/Immunologic Allergic/Immunologic: Denies itchy eyes, Denies lip swelling, Denies throat swelling and Denies wheezing Pulmonology Exam Inpatient Vital signs and Labs for Last 24 Hours: Temp Pulse Resp BP Pulse Ox O2 Del Method O2 Flow Rate 97.6 F 75 18 111/72 97 Room Air 2 04/15/25 08:00 04/15/25 08:00 04/15/25 08:00 04/15/25 08:00 04/15/25 08:00 04/15/25 08:50 04/14/25 08:00 Laboratory Results - last 24 hr 04/15/25 05:26: WBC 7.6 D, RBC 5.55 H, Hgb 16.7 H, Hct 50.4 H, MCV 90.8, MCH 30.1, MCHC 33.1, RDW 14.1, Plt Count 150, MPV 10.2, Neut % (Auto) 60.7, Lymph % (Auto) 33.9, [place] % (Auto) 3.2, Eos % (Auto) 1.1, Baso % (Auto) 0.8, Neut # (Auto) 4.6, Lymph # (Auto) 2.6, [place] # (Auto) 0.2, Eos # (Auto) 0.1, Baso # (Auto) 0.1, Sodium 135 L, Potassium 3.7, Chloride 98, Carbon Dioxide 32 H, Anion Gap 8.7, BUN 9, Creatinine 0.40 L, Estimated Creat Clear 168, Estimated GFR 163, Est GFR ( Amer) 198, Glucose 86 D, Calcium 9.1, Magnesium 1.7 D, Total Bilirubin 1.1, AST 103 H D, ALT 119 H D, Alkaline Phosphatase 133 H, Total Protein 6.7, Albumin 3.9 D, Globulin 2.8, Albumin/Globulin Ratio 1.4 I & O for Labs for Last 24 Hours: Intake & Output 04/12/25 04/13/25 04/14/25 04/15/25 23:59 23:59 23:59 23:59 Intake Total 942 / 1422 480 / 480 Output Total 150 / 150 0 / 0 Balance 792 / 1272 480 / 480 Weight 153 lb 14.4 oz 155 lb 155 lb 0.006 oz Constitutional: Present mild distress Head: Present normocephalic and atraumatic ENT: Present normal exam, normal oropharynx and mucous membranes moist Neck: Present normal inspection and full ROM Respiratory: Present diminished air movement, normal respiratory effort and able to speak in complete sentences; Absent prolonged expiratory phase, respiratory distress, wheezes or distant breath sounds Cardiac: Present S1/S2, Tachycardia and radial pulses present GI: Present soft and distention; Absent tenderness or guarding Rectal (female): Present deferred (female): Present deferred Skin: Present intact; Absent cyanosis or jaundice Neuro: Present alert, awake and oriented x 3 Extremities: Present normal inspection; Absent clubbing or cyanosis Psychiatric: Present normal affect and cooperative Meds Home Medications and Allergies Home Medications ?Medication ?Instructions ?Recorded ?Confirmed ?Type nebulizer accessories #1 ea 03/22/23 04/13/25 Rx nebulizers #1 ea 03/22/23 04/13/25 Rx clopidogrel 75 mg tablet 75 mg PO DAILY #30 tabs 03/0504/13/25 Rx metoprolol tartrate 50 mg tablet 50 mg PO BID 90 days #180 tabs 01/09/25 04/13/25 Rx fluticasone fur. 200 mcg-umeclid 1 inh inhalation HUNG Y #60 ea 02/13/25 04/13/25 Rx 62.5 mcg-vilant 25 mcg inhalat.powder (Trelegy Ellipta) furosemide 20 mg tablet 20 mg PO DAILYP PRN Edema 04/14/25 History levocetirizine 5 mg tablet 5 mg PO DAILY #30 tabs 03/0504/13/25 Rx omeprazole 40 mg capsule,delayed 40 mg PO DAILY #30 ca ps 03/19/25 04/14/25 Rx release albuterol sulfate 90 mcg/actuation 2 puff inhalation Q 4HP PRN 04/14/25 04/14/25 History aerosol inhaler (Ventolin HFA) Shortness Of Breath aspirin 81 mg chewable tablet 81 mg PO DAILY 04/14/25 04/14/25 History atorvastatin 80 mg tablet 80 mg PO HS 04/14/25 5 History trazodone 50 mg tablet 50 mg PO HS 04/14/25 5 History doxycycline hyclate 100 mg capsule 100 mg PO BID #7 ca ps 04/15/25 Rx fluticasone fur. 200 mcg-umeclid 1 inh inhalation HUNG Y 30 days #60 04/15/25 Rx 62.5 mcg-vilant 25 mcg ea inhalat.powder (Trelegy Ellipta) prednisone 20 mg tablet 40 mg (2 x 20 mg) PO DAILY 3 days 04/15/25 Rx #6 tabs New Prescriptions to Start Prescriptions: doxycycline hyclate Lynne Schultz [id number] [Trelegy Ellipta] Lynne Schultz prednisone Lynne Schultz Allergies Allergy/AdvReac Type Severity Reaction Status Date / Time codeine Allergy Rash Verified 04/13/25 17:09 levofloxacin AdvReac Rash Verified 04/13/25 17:09 Results Laboratory Findings 04/15/25 05:26 04/15/25 05:26 PT/INR, D-dimer PT 11.0 seconds (10.1-12.5) 04/13/25 16:39 INR 0.99 (0.9-1.1) 04/13/25 16:39 Abnormal lab findings: Abnormal Labs 04/13/25 04/13/25 04/14/25 16:39 16:59 01:01 WBC RBC 5.59 H Hgb 17.3 H Hct 49.4 H VBG pH 7.47 H VBG pO2 64.1 H VBG Total CO2 28.6 H VBG O2 Saturation 93.7 H VBG Base Excess 3.7 H VBG Lactic Acid 3.0 H Sodium 132 L Potassium 3.2 L Chloride 94 L Carbon Dioxide BUN 4 L Creatinine 0.40 L Glucose 105 H Lactate 2.2 H AST 248 H ALT 184 H Alkaline Phosphatase 175 H Cholesterol LDL Cholesterol Direct HDL Cholesterol Plasma/Serum Alcohol 194 H 04/14/25 04/15/25 05:30 05:26 WBC 3.9 L D RBC 5.92 H 5.55 H Hgb 17.8 H 16.7 H Hct 53.9 H 50.4 H VBG pH VBG pO2 VBG Total CO2 VBG O2 Saturation VBG Base Excess VBG Lactic Acid Sodium 130 L 135 L Potassium Chloride 92 L Carbon Dioxide 31 H 32 H BUN Creatinine 0.40 L 0.40 L Glucose 293 H D Lactate 2.9 H AST 206 H 103 H D ALT 189 H 119 H D Alkaline Phosphatase 165 H 133 H Cholesterol 228 H LDL Cholesterol Direct 78.05 L HDL Cholesterol 121 H Plasma/Serum Alcohol Assessment and Plan *Assessment and plan (1) Dyspnea on exertion: Status: Acute Category: Medical Code(s): R06.09 - Other forms of dyspnea (2) Acute exacerbation of chronic obstructive pulmonary disease: Status: Acute Category: Medical Code(s): J44.1 - Chronic obstructive pulmonary disease with (acute) exacerbation Plan Ms. Alves is a 59-year-old female current smoker greater than 30 pack explained history carries a diagnosis of COPD at baseline Trelegy 200 inhaler presented today with primary complaints of dizziness and falls. Admits worsening respiratory symptoms and wheezing prior to this hospital admission. Otherwise admits stable stable symptom control on her inhaler therapy. Denies any exacerbations prior to this hospital admission in the last 12 months Afebrile. Hemodynamically stable. No evidence of leukocytosis. Blood gas upon admission did not show any hypoxic/hypercarbic respiratory failure. Chest x-ray clear with no dense consolidative/airspace changes. Lower lobe lung wheatley on CT abdomen within normal limits. Continue to show bilateral calcified lung nodules remain stable compared to her prior CTs from 2022. On examination no significant respiratory distress saturating 98% on room air. Chest clear to auscultate. Patient initially on admission reported to have significant wheezing and new oxygen requirements, that improved after nebulization therapies and steroids. Plan: Continue Trelegy 100 inhaler along with albuterol/DuoNebs 4 times daily as needed Doxycycline 100 mg twice daily x 5 days Continue prednisone 40 mg daily to complete total 5-day course Significant nocturnal desaturations noted on her oximetry testing from March 2025. Continue oxygen supplementation at 2 L at night. Will evaluate for other possibilities including the need for polysomnography as an outpatient basis
--- NOTE | 2025-04-15 12:38 | SW/DCPLANNER ---
Phoned [facility] for patient to go home. Aisha stated that it will be within the next 10 minutes before they can get patient. I phoned patient's nurse Erika to let her know. Kranthi Norwood
--- NOTE | 2025-04-16 10:53 | SW/DCPLANNER ---
Spoke with patient on the phone. Patient stated that she is good and slept like a baby. Patient stated that she is aware of her upcoming appointments. Patient stated that she was able to get all [facility] Patient stated she has no concerns or questions at this time. Kranthi Norwood
== END 2025-04-15 12:50 | disposition home or self-care (01) ==
LOC: ER 19:42 → 2ND 21:34
PROVIDERS: Nurse Practitioner; Nurse Practitioner Family; Admitting Provider Internal Medicine Adolescent Medicine; Emergency Provider Student in an Organized Health Care Education/Training Program; PCP Nurse Practitioner Family; Visit Provider Internal Medicine Adolescent Medicine
DX: J44.1 Chronic obstructive pulmonary disease with (acute) exacerbation (principal); R09.02 Hypoxemia; J20.8 Acute bronchitis due to other specified organisms; F10.20 Alcohol dependence, uncomplicated; R74.8 Abnormal levels of other serum enzymes; R74.01 Elevation of levels of liver transaminase levels; I10 Essential (primary) hypertension; G47.9 Sleep disorder, unspecified; E66.9 Obesity, unspecified; N30.90 Cystitis, unspecified without hematuria; K70.10 Alcoholic hepatitis without ascites; F41.9 Anxiety disorder, unspecified; K21.9 Gastro-esophageal reflux disease without esophagitis; I25.10 Atherosclerotic heart disease of native coronary artery without angina pectoris; F17.210 Nicotine dependence, cigarettes, uncomplicated; Z88.1 Allergy status to other antibiotic agents; Z88.5 Allergy status to narcotic agent; Z68.27 Body mass index [BMI] 27.0-27.9, adult; Z79.82 Long term (current) use of aspirin; Z79.899 Other long term (current) drug therapy
CPT/HCPCS: 0223U; 36415; 70450; 71045; 72125; 73610; 74177; 80053; 80061; 80307; 80320; 81001; 82803; 83605; 83690; 83735; 84100; 84484; 85025; 85610; 85730; 93005; 94640; 96374; 96375; 99285; G0378; J0131; J1650; J2919; Q9967

== ENCOUNTER 2025-05-28 09:24 | Outpatient (CLI) | payer MEDICAID, SELFPAY ==
--- OUTSIDE RECORDS SUMMARY | 2025-05-28 09:30 | XMS_ITS | Encounter Summary ---
Author Organization Healthcare Address [address] [place] [address] Care Team Providers Care Helper Animal Laboratory Name Role Phone Pcp, No Primary Care Provider Unavailabl e Reason for Visit * Reason Onset Date Comments HCN - Patient Message 05/03/2025 Encounter Details Date Type Department Care Team (Late st Contact Info) Description 05/03/2025 Telephone [facility] [address] [place] [address] None, None [address] [place] [address] HCN - Patient Message Social History Tobacco Use Types Packs/Day Years [...] drink first t ney in the morning (EYE-SOLDERER PRODUCTION LINE) to steady your nerves or to get rid of a hangover? 0 03/31/2023 CAGE Questionnaire Score 0 023 Comments No Sex and Gender Information Value Date Recorded Sex Assigned at Not on file Legal Sex Female 10:42 AM EDT Gender Identity Not on file Sexual Orientation Not on file documented as of this encounter Miscellaneous Notes * Telephone Encounter - Janie Mar - 05/14/2025 9:24 AM EDT Triage Note 05/14/2025 9:24 AM [phone] - Called patient. No answer. Left voice mail requesting a call back. * Telephone Encounter - Janie Mar - 05/09/2025 8:43 AM EDT Triage Note 05/09/2025 8:43 AM Called using [phone] - you have the wrong number. Called daughter using [phone] - No answer. Left vm req cb. * Telephone Encounter - Janie Mar - 05/07/2025 1:28 PM EDT Triage Note 05/07/2025 1:28 PM Called patient. No answer. Unable to leave voice mail. * Telephone Encounter - Cale Finley - 05/03/2025 11:49 AM EDT Patient Phone Message Reason for Call: Pt is requesting a call to schedule an appt to be seen for blurred vision. Referring office will fax over records. Best contact number and optimal time of day to reach caller: [phone] Note: Please do not reply to this message. Follow-up communication and further actions as a result of this message need to be communicated with the patient directly, if the patient is not active onMyChart. If the patient is active on MyChart, they will receive notification of the communication/outcome via [employer] documented in this encounter Plan of Treatment Not on file documented as of this encounter Visit Diagnoses Not on filedocumented in this encounter Additional Health Concerns Assessment Noted Time A Body Mass Index follow-up plan has been documented for the patient 05/18/2023 11:07 AM EDT documented as of this encounter Care Teams Helper Animal Laboratory Relationship Specialty Start Date End Date Pcp, [place] [address] PCP - General Family Medicine 03/24/22 documented as of this encounter
--- OUTSIDE RECORDS SUMMARY | 2025-05-28 09:30 | XMS_ITS | Clinical Summary ---
Author Organization Healthcare Address [address] [place] [address] Care Team Providers Care Utility Tender Carding Name Role Phone Pcp, No Primary Care [...] (coronary artery disease) GERD (gastroesophageal reflux disease) History of impetigo Resolved Problems Problem Noted Date Diagnosed Date Resolved Date Pulmonary nodules 05/26/2025 Myocardial infarction 2022 Recurrent syncope 05/26/2025 Hypokalemia 03/25/2023 Encounters Date Type Department Care Team Description 05/03/2025 Telephone [facility] [address] [place] [phone] None, None HCN - Patient Message from Last 3 Months Immunizations Immunization Administration Dates Next Due Pfizer-BioNTech [...] drink first t ney in the morning (EYE-EDGE BURNISHER UPPERS) to steady your nerves or to get [...] 2015 [facility]-Zoster Vaccines (1 of 2) 2015 [id number] Vaccine (3 - season) 2025 10/26/2021, 09/16/2021 [facility]-Influenza Vaccine (#1) 2025 [facility]-Diabetes: [...] this topic Medical Devices Implanted Type Area Rn Neurology Device Identifier Shelf Expiration Date Model / Serial / Lot Valve Evolut Pro Transaortic 26mm - [id number] Implanted:Qty: 1 on 03/31/2023 by Sergio Faith MD at [facility] [id number] 11/09/2023 EVPROPLU S26 US / [id number] / [id number] Procedures Procedure Name Priority Date/Time Associated Diagnosis [...] Adults <6.0% Children and Adolescents <7.5% Source: [place] [employer]. Standards of medical care in diabetes,2017. Diabetes Care.2017:40 (suppl 1):S1-S135. HbA1c assay performed by an ion-exchange chromatography method that is certified traceable to the DCCT. us So Jeffries [employer]BESTOS TEXTILE SUPERVISOR LAB BLOOD ORDERABLES Final R esult [facility] [address] [place] [address] from Last 3 Months or Most Recently Relevant to Health Maintenance Insurance Advance Directives * Full Code (Latest Code Status on File) Date Activated Date Inactivated Comments 03/31/2023 4:10 PM 04/01/2023 4:50 PM Question Answer Comments Patient has decision-making capacity? Yes * Full Code Date Activated Date Inactivated Comments 03/23/2023 5:20 PM 03/25/2023 1:24 PM Question Answer Comments Patient has decision-making capacity? Yes Care Teams Utility Tender Carding Relationship Specialty Start Date End Date Pcp, Letty [address] [place] [address] PCP - General Family Medicine 03/24/22
--- OUTSIDE RECORDS SUMMARY | 2025-05-28 09:30 | XMS_ITS | Encounter Summary ---
Author Organization Healthcare Address [address] [place] [id number] Care Team Providers Care Flour Mixer Name Role Phone Pcp, No Primary Care Provider Unavailabl e Reason for Visit * Reason Comments Med Refill Encounter Details Date Type Department Care Team ([facility] st Contact Info) Description 05/03/2024 Refill [facility] [place] [address], [address] [place] [address] Melva Modi PA [address] [place] [address] Social History Tobacco Use Types [...] drink first t ney in the morning (EYE-SAP SOLUTIONS ARCHITECT) to steady your nerves or to get [...] documented as of this encounter Care Teams Flour Mixer Relationship Specialty Start Date End Date Pcp, [place] [address] PCP - General Family Medicine 03/24/22 documented as of this encounter
--- OUTSIDE RECORDS SUMMARY | 2025-05-28 09:30 | XMS_ITS | Clinical Summary ---
Author Organization [facility] Address [address] [place] [address] Phone Care Team Providers Care Biology Research Assistant Name Role Phone Sergio Hurtado MD Primary Care Provider [phone] Allergies Active Allergy Reactions Criticality Noted Date [...] Diagnosed Date Coronary artery disease invo [place]ving [place] coronary artery of [place] heart without angina pectoris 04/15/2023 Abdominal aortic [...] Date Smoking Tobacco: Every Day Cigarettes 0.2 47.7 Started: 1977 Overall Financial Resource Strain (CARDIA) [...] of 2) 2015 COVID-19 Vaccine (3 - 2024-2 6 season) 2025 10/26/2021, 09/16/2021 Influenza Vaccine (#1) 2025 06/28/2023 Meningococcal B Vaccine Aged Out No l onger eligible based on patient's age to complete this topic Insurance [facility] [id number] [facility] [place] [id number] [place] [id number] [facility] Advance Directives For more information, please contact: [phone] * Full Code (Latest Code Status on File) Date Activated Date Inactivated Comments 04/15/2023 12:50 AM 04/16/2023 9:26 PM Care Teams Biology Research Assistant Relationship Specialty Start Date End Date Sergio Hurtado MD [address] [facility] [address] [place] [address] PCP - General Family Medicine 04/14/23
--- OUTSIDE RECORDS SUMMARY | 2025-05-28 09:30 | XMS_ITS | Encounter Summary ---
Author Organization Healthcare Address [address] [place] [id number] Care Team Providers Care Animal Nurse Name Role Phone Pcp, No Primary Care Provider Unavailabl e Reason for Visit * Reason Comments Med Refill Encounter Details Date Type Department Care Team ([facility] st Contact Info) Description 09/06/2023 Refill [facility] [place] [address] [facility], [address] [place] [address] Melva Modi PA [address] [place] [address] Social History Tobacco Use Types [...] drink first t ney in the morning (EYE-AMBULANCE MECHANIC) to steady your nerves or to get [...] documented as of this encounter Care Teams Animal Nurse Relationship Specialty Start Date End Date Pcp, [place] [address] PCP - General Family Medicine 03/24/22 documented as of this encounter
--- NOTE | 2025-05-28 09:45 | MR_ITS ---
FINAL REPORT TECHNIQUE: Multiple projection images of the brain arterial vasculature were obtained without contrast. Precontrast imaging was also obtained. The raw data images were also reviewed. CLINICAL HISTORY: blurred vision. DIZZINESS, FALLING FREQUENTLY. HEADACHE FINDINGS: The distal internal carotid, distal vertebral and basilar arteries have an unremarkable appearance without evidence of significant stenosis or occlusion. The proximal anterior, middle and posterior cerebral arteries have an unremarkable appearance. There is no evidence of significant stenosis or major branch occlusion. No aneurysm or vascular malformation is identified. IMPRESSION: Unremarkable MR angiogram of the head. Reviewed, Interpreted and Dictated by Coleen Kerr MD Transcribed by Ceci Su Authenticated and [facility]
[2025-05-28 10:02] LABS: Blood Urea Nitrogen 8 mg/dl (7-17); Creatinine,Serum 0.60 mg/dl (0.52-1.04); Estimated Glomerular Filt Rate 102 ml/min (>60); GFR (African American) 124 ML/MIN (>60)
[2025-05-28] MEDS: SODIUM CHLORIDE 0.9% 10ML SYR (RAD ONLY) 10 ML IV (11:19)
[2025-05-28] MEDS: 0.9 % SODIUM CHLORIDE 50 ML VIAL 20 ML IV (11:19)
[2025-05-28] MEDS: GADOTERIDOL INJ 20ML SYRINGE 14 ML IV (11:19)
== END 2025-05-28 23:59 | disposition home or self-care (01) ==
LOC: RAD 09:25
PROVIDERS: PCP Nurse Practitioner Family; Visit Provider Nurse Practitioner Family
DX: H53.8 Other visual disturbances (principal); R42 Dizziness and giddiness; R29.6 Repeated falls; R51.9 Headache, unspecified
CPT/HCPCS: 36415; 70546; 82565; 84520; A9576

== ENCOUNTER 2025-06-12 10:13 | Outpatient (CLI) | payer MEDICAID, SELFPAY ==
[2025-06-12 18:09] LABS: Alanine Aminotransferase 203 U/L (12-78); Albumin Level 4.3 g/dl (3.5-5.0); Albumin/Globulin Ratio 1.4 (1.1-1.8); Alkaline Phosphatase 264 U/L (38-126); Anion Gap 21.2 mEq/L (5-15); Aspartate Amino Transferase 249 U/L (14-36); Bilirubin,Total 0.9 mg/dl (0.2-1.3); Blood Urea Nitrogen 6 mg/dl (7-17); Calcium 9.2 mg/dl (8.4-10.2); Carbon Dioxide 29 mmol/L (22.0-30.0); Chloride 86 mmol/L (98-107); Creatinine,Serum 0.50 mg/dl (0.52-1.04); Estimated Glomerular Filt Rate 126 ml/min (>60); GFR (African American) 153 ML/MIN (>60); Globulin 3.0 g/dL (1.3-3.2); Glucose 91 mg/dl (74-100); Magnesium 2.1 mg/dl (1.6-2.3); Potassium 3.2 mmoL/L (3.5-5.1); Sodium 133 mmol/L (136-145); Total Protein,Serum 7.3 g/dl (6.3-8.2)
[2025-06-12 18:25] LABS: 25-OH Vitamin D, Total 23.3 ng/mL (30-100)
[2025-06-12 18:28] LABS: Hemoglobin A1C 5.9 % (4.0-6.0)
[2025-06-12 18:37] LABS: Thyroid Stimulating Hormone 2.33 uIU/mL (0.465-4.68)
[2025-06-12 18:56] LABS: Vitamin B12 586 pg/mL (239-931)
--- OUTSIDE RECORDS SUMMARY | 2025-06-14 00:28 | XMS_ITS | Clinical Summary ---
Author Organization Healthcare Address [address] [place] [address] Care Team Providers Care Housing Director Name Role Phone Pcp, No Primary [...] Type Department Care Team Description 05/03/2025 Telephone [facility] [address] [place] [phone] HCN - Patient Message from Last 3 [...] drink first t ney in the morning (EYE-FRIT MIXER AND BURNER) to steady your nerves or to get [...] [facility]Y-HIV Screening 1965 [facility]Y-Hepatitis C Screening 1965 [facility]-Infant/Child/Adol SDOH Screenings 1965 [facility]Y- SDOH Screenings 1983 [...] 2015 [facility]-Zoster Vaccines (1 of 2) 2015 [id number] Vaccine (3 - 2024- season) 2025 10/26/2021, 09/16/2021 [facility]-Influenza Vaccine (#1) [...] this topic Medical Devices Implanted Type Area Peer Counselor Device Identifier Shelf Expiration Date Model / Serial / Lot Valve Evolut Pro Transaortic 26mm - [id number] Implanted:Qty: 1 on 03/31/2023 by Sergio Faith MD at [facility] [id number] 11/09/2023 EVPROPLU S26 / [id number] / [id number] Procedures Procedure Name Priority Date/Time Associated Diagnosis [...] certified traceable to the DCCT. us So A [employer] TILE ROOFER LAB BLOOD ORDERABLES Final R [facility] [address] [place] [address] from Last 3 Months or Most Recently [...] Patient has decision-making capacity? Yes Care Teams Housing Director Relationship Specialty Start Date End Date Pcp, Letty [address] [place] [address] PCP - General Family Medicine 03/24/22
--- OUTSIDE RECORDS SUMMARY | 2025-06-14 00:28 | XMS_ITS | Encounter Summary ---
Author Organization Healthcare Address [address] [place] [id number] Care Team Providers Care Aviation Program Manager Name Role Phone Pcp, No Primary Care Provider Unavailabl e Reason for Visit * Reason Comments Med Refill Encounter Details Date Type Department Care Team ([facility] st Contact Info) Description 09/06/2023 Refill [facility] [place] [address], [address] [place] [address] Melva Modi PA [address] [place] [address] Social History Tobacco Use Types [...] drink first t ney in the morning (EYE-DENTAL ASSISTANT) to steady your nerves or to get [...] documented as of this encounter Care Teams Aviation Program Manager Relationship Specialty Start Date End Date Pcp, [place] [address] PCP - General Family Medicine 03/24/22 documented as of this encounter
--- OUTSIDE RECORDS SUMMARY | 2025-06-14 00:28 | XMS_ITS | Encounter Summary ---
Author Organization Healthcare Address [address] [place] [id number] Care Team Providers Care Heddle Machine Operator Name Role Phone Pcp, No Primary Care Provider Unavailabl e Reason for Visit * Reason Onset Date Comments HCN - Patient Message 05/03/2025 Encounter Details Date Type Department Care Team (Late st Contact Info) Description 05/03/2025 Telephone [facility] [address] [place] [address] HCN - Patient Message Social History Tobacco [...] drink first t ney in the morning (EYE-DEPOSIT REFUND CLERK) to steady your nerves or to get [...] AM EDT Triage Note 05/14/2025 9:24 AM [phone] - Called patient. No answer. Left voice mail requesting a call back. * Telephone Encounter - Janie Mar - 05/09/2025 8:43 AM EDT Triage Note 05/09/2025 8:43 AM Called using [phone] - you have the wrong number. Called daughter using [phone] - No answer. Left vm req cb. [...] optimal time of day to reach caller: [phone] Note: Please do not reply to this message. Follow-up communication and further actions as a result of this message need to be communicated with the patient directly, if the patient is not active onMyChart. If the patient is active on MyChart, they will receive notification of the communication/outcome via YEVVOt. documented in this encounter Plan of Treatment Not on file documented as of this encounter Visit Diagnoses Not on filedocumented in this encounter Additional Health Concerns Assessment Noted Time A Body Mass Index follow-up plan has been documented for the patient 05/18/2023 11:07 AM EDT documented as of this encounter Care Teams Heddle Machine Operator Relationship Specialty Start Date End Date Pcp, No [address] [place] [address] PCP - General Family Medicine 03/24/22 documented as of this encounter
--- OUTSIDE RECORDS SUMMARY | 2025-06-14 00:28 | XMS_ITS | Encounter Summary ---
Author Organization Healthcare Address [address] [place] [id number] Care Team Providers Care Asset Protection Specialist Name Role Phone Pcp, No Primary Care Provider Unavailabl e Reason for Visit * Reason Comments Med Refill Encounter Details Date Type Department Care Team ([facility] st Contact Info) Description 05/03/2024 Refill [facility] [place] [address] [address] [facility], [address] [place] [address] Melva Modi PA [address] [place] [address] Social History Tobacco Use Types [...] drink first t ney in the morning (EYE-OPTIONS TRADER) to steady your nerves or to get [...] documented as of this encounter Care Teams Asset Protection Specialist Relationship Specialty Start Date End Date Pcp, [place] [address] PCP - General Family Medicine 03/24/22 documented as of this encounter
== END 2025-06-12 23:59 ==
LOC: LAB.DROPOF 06-14 00:26
PROVIDERS: PCP Nurse Practitioner Family; Visit Provider Nurse Practitioner Family
DX: E55.9 Vitamin D deficiency, unspecified (principal); R42 Dizziness and giddiness; R73.03 Prediabetes
CPT/HCPCS: 80053; 82306; 82607; 83036; 83735; 84443

== ENCOUNTER 2025-06-19 09:40 | Outpatient (CLI) | payer MEDICAID, SELFPAY ==
[2025-06-19 15:27] LABS: Potassium 4.9 mmoL/L (3.5-5.1)
--- OUTSIDE RECORDS SUMMARY | 2025-06-20 09:59 | XMS_ITS | Encounter Summary ---
Author Organization Healthcare Address [address] [place] [id number] Care Team Providers Care Assembler Motor Vehicle Name Role Phone Pcp, No Primary Care Provider Unavailabl e Reason for Visit * Reason Onset Date Comments HCN - Patient Message 05/03/2025 Encounter Details Date Type Department Care Team (Late st Contact Info) Description 05/03/2025 Telephone [facility] [address] [place] [address] HCN - Patient Message Social [...] drink first t ney in the morning (EYE-SUBSTATION OPERATOR CHIEF) to steady your nerves or to get [...] AM EDT Triage Note 05/14/2025 9:24 AM [phone] - Called patient. No answer. Left voice mail requesting a call back. * Telephone Encounter - Janie Mar - 05/09/2025 8:43 AM EDT Triage Note 05/09/2025 8:43 AM Called using [phone] - you have the wrong number. Called daughter using [phone] - No answer. Left vm req cb. [...] optimal time of day to reach caller: [phone] Note: Please do not reply to this message. Follow-up communication and further actions as a result of this message need to be communicated with the patient directly, if the patient is not active onMyChart. If the patient is active on MyChart, they will receive notification of the communication/outcome via Day Zero Projectt. documented in this encounter Plan of Treatment Not on file documented as of this encounter Visit Diagnoses Not on filedocumented in this encounter Additional Health Concerns Assessment Noted Time A Body Mass Index follow-up plan has been documented for the patient 05/18/2023 11:07 AM EDT documented as of this encounter Care Teams Assembler Motor Vehicle Relationship Specialty Start Date End Date Pcp, No [address] [place] [address] PCP - General Family Medicine 03/24/22 documented as of this encounter
--- OUTSIDE RECORDS SUMMARY | 2025-06-20 09:59 | XMS_ITS | Clinical Summary ---
Author Organization [facility] Address [address] [place] [address] Phone Care Team Providers Care Cook Chili Name Role Phone Sergio Hurtado MD Primary Care Provider [phone] Allergies Active Allergy Reactions Criticality Noted Date [...] Diagnosed Date Coronary artery disease invo lving wales coronary artery of wales heart without angina pectoris 04/15/2023 Abdominal aortic [...] Date Smoking Tobacco: Every Day Cigarettes 0.3 47.8 Started: 1977 Overall Financial Resource Strain (CARDIA) [...] patient's age to complete this topic Insurance [facility] [id number] [facility] JAMESGERALDINESURYA [place]BERT[place] [id number] [place] [id number] [facility] Advance Directives For more information, please contact: [phone] * Full Code (Latest Code Status on File) Date Activated Date Inactivated Comments 04/15/2023 12:50 AM 04/16/2023 9:26 PM Care Teams Cook Chili Relationship Specialty Start Date End Date Sergio Hurtado MD [address] [facility] [address] [place] [address] PCP - General Family Medicine 04/14/23
--- OUTSIDE RECORDS SUMMARY | 2025-06-20 09:59 | XMS_ITS | Encounter Summary ---
Author Organization Healthcare Address [address] [place] [id number] Care Team Providers Care Outsole Cementer Machine Name Role Phone Pcp, No Primary Care Provider Unavailabl e Reason for Visit * Reason Comments Med Refill Encounter Details Date Type Department Care Team ([facility] st Contact Info) Description 05/03/2024 Refill [facility] [place] [address] [facility], [address] [place] [address] Melva Modi PA [address] [place] [address] Social History Tobacco Use Types [...] drink first t ney in the morning (EYE-ASP NET DEVELOPER) to steady your nerves or to get [...] documented as of this encounter Care Teams Outsole Cementer Machine Relationship Specialty Start Date End Date Pcp, [place] [address] PCP - General Family Medicine 03/24/22 documented as of this encounter
--- OUTSIDE RECORDS SUMMARY | 2025-06-20 09:59 | XMS_ITS | Clinical Summary ---
Author Organization Healthcare Address [address] [place] [address] Care Team Providers Care Firer Powerhouse Name Role Phone Pcp, No Primary Care [...] Type Department Care Team Description 05/03/2025 Telephone [facility] [address] [place] [address] HCN - Patient Message from Last [...] drink first t ney in the morning (EYE-REAL ESTATE OPERATIONS MANAGER) to steady your nerves or to [...] 2015 UKY-Zoster Vaccines (1 of 2) 2015 ZBF-[id number]-07 Vaccine (3 - 2024- season) 2025 10/26/2021, [...] this topic Medical Devices Implanted Type Area Stull Installer Device Identifier Shelf Expiration Date Model / Serial / Lot Valve Evolut Pro Transaortic 26mm - [id number] Implanted:Qty: 1 on 03/31/2023 by Sergio Faith MD at [facility] [id number] 11/09/2023 EVPROPLU S26 / [id number] / [id number] Procedures Procedure Name Priority Date/Time Associated Diagnosis [...] Adults <6.0% Children and Adolescents <7.5% Source: [place] Diabetes Association. Standards of medical care in diabetes,2017. Diabetes Care.2017:40 (suppl 1):S1-S135. HbA1c assay performed by an ion-exchange chromatography method that is certified traceable to the DCCT. us So A Zacher SPECIALTY DEVELOPMENT CONSULTANT LAB BLOOD ORDERABLES Final R esult [facility] [address] [place] [address] from Last 3 Months or Most Recently [...] Patient has decision-making capacity? Yes Care Teams Firer Powerhouse Relationship Specialty Start Date End Date Pcp, Letty [address] [place] [address] PCP - General Family Medicine 03/24/22
--- OUTSIDE RECORDS SUMMARY | 2025-06-20 09:59 | XMS_ITS | Encounter Summary ---
Author Organization Healthcare Address [address] [place] [id number] Care Team Providers Care Advertiser Name Role Phone Pcp, No Primary Care Provider Unavailabl e Reason for Visit * Reason Comments Med Refill Encounter Details Date Type Department Care Team ([facility] st Contact Info) Description 09/06/2023 Refill [facility] [place] [address] [facility], [address] [place] [address] Melva Modi PA [address] [place] [address] Social History Tobacco Use Types [...] drink first t ney in the morning (EYE-DUMPER MOLD CLEANER) to steady your nerves or to get [...] documented as of this encounter Care Teams Advertiser Relationship Specialty Start Date End Date Pcp, [place] [address] PCP - General Family Medicine 03/24/22 documented as of this encounter
== END 2025-06-19 23:59 ==
LOC: LAB.DROPOF 06-20 09:47
PROVIDERS: PCP Nurse Practitioner Family; Visit Provider Nurse Practitioner Family
DX: Z86.39 Personal history of other endocrine, nutritional and metabolic disease (principal)
CPT/HCPCS: 84132

== ENCOUNTER 2025-06-25 08:02 | Outpatient (CLI) | payer MEDICAID, SELFPAY ==
--- NOTE | 2025-06-25 08:00 | FL_ITS ---
FINAL REPORT CLINICAL HISTORY: dyspagia 890.48 dap 1.59 fluoro time FINDINGS: ESOPHAGRAM HISTORY: Dysphagia , feels like things getting stuck in throat. TECHNIQUE: The patient ingested thick and thin barium contrast. Effervescent crystals were also administered. Spot films were performed. 46 images were saved. FINDINGS: There is a prominent cricopharyngeus muscle with a Zenker's diverticulum. Contrast pools within the Zenker's divertticulum. There is no gastroesophageal reflux demonstrated. No mucosal defects are seen. Motility appears normal. No changes of esophagitis are evident. 13 mm barium tablet is delayed in the distal esophagus, but does pass with subsequent swallows. Fluoroscopy time: 1.59 minutes Radiation exposure in total DAP: 890.48 uGym2 IMPRESSION: Prominent cricopharyngeus muscle with Zenker's diverticulum. Otherwise, unremarkable barium swallow. Reviewed, Interpreted and Dictated by Chet Mistry MD Transcribed by Keke Smart PA-C Authenticated and [facility]
--- OUTSIDE RECORDS SUMMARY | 2025-06-25 08:05 | XMS_ITS | Clinical Summary ---
Author Organization Healthcare Address [address] [place] [address] Care Team Providers Care Garment Sewing Machine Operator Name Role Phone Pcp, No [...] Type Department Care Team Description 05/03/2025 Telephone [facility] [address] [place] [address] HCN - Patient Message from Last [...] drink first t ney in the morning (EYE-PROPOSAL ENGINEER) to steady your nerves or to get [...] 2015 UKY-Zoster Vaccines (1 of 2) 2015 DKN-LPFOI-10 Vaccine (3 - 2024- season) 2025 10/26/2021, [...] this topic Medical Devices Implanted Type Area Enamel Sprayer Device Identifier Shelf Expiration Date Model / Serial / Lot Valve Evolut Pro Transaortic 26mm - [id number] Implanted:Qty: 1 on 03/31/2023 by Sergio Faith MD at [facility] Medtronic-[id number] 11/09/2023 EVPROPLU S26 / [id number] / [id number] Procedures Procedure Name Priority Date/Time Associated Diagnosis [...] Adults <6.0% Children and Adolescents <7.5% Source: [place] Diabetes Association. Standards of medical care in diabetes,2017. Diabetes Care.2017:40 (suppl 1):S1-S135. HbA1c assay performed by an ion-exchange chromatography method that is certified traceable to the DCCT. us So A Zacher [facility] LAB BLOOD ORDERABLES Final R esult [facility] [address] [place] [address] from Last 3 Months or Most Recently [...] Patient has decision-making capacity? Yes Care Teams Garment Sewing Machine Operator Relationship Specialty Start Date End Date Pcp, Letty [address] [place] [address] PCP - General Family Medicine 03/24/22
--- OUTSIDE RECORDS SUMMARY | 2025-06-25 08:05 | XMS_ITS | Encounter Summary ---
Author Organization Healthcare Address [address] [place] [id number] Care Team Providers Care Marketing Reporting Analyst Name Role Phone Pcp, No Primary Care Provider Unavailabl e Reason for Visit * Reason Onset Date Comments HCN - Patient Message 05/03/2025 Encounter Details Date Type Department Care Team (Late st Contact Info) Description 05/03/2025 Telephone [facility] [address] [place] [address] HCN - Patient Message Social [...] drink first t ney in the morning (EYE-IDEA MAN) to steady your nerves or to get [...] AM EDT Triage Note 05/14/2025 9:24 AM [phone] - Called patient. No answer. Left voice mail requesting a call back. * Telephone Encounter - Janie Mar - 05/09/2025 8:43 AM EDT Triage Note 05/09/2025 8:43 AM Called using [phone] - you have the wrong number. Called daughter using [phone] - No answer. Left vm req cb. [...] optimal time of day to reach caller: [phone] Note: Please do not reply to this message. Follow-up communication and further actions as a result of this message need to be communicated with the patient directly, if the patient is not active onMyChart. If the patient is active on MyChart, they will receive notification of the communication/outcome via CodeSealert. documented in this encounter Plan of Treatment Not on file documented as of this encounter Visit Diagnoses Not on filedocumented in this encounter Additional Health Concerns Assessment Noted Time A Body Mass Index follow-up plan has been documented for the patient 05/18/2023 11:07 AM EDT documented as of this encounter Care Teams Marketing Reporting Analyst Relationship Specialty Start Date End Date Pcp, No [address] [place] [address] PCP - General Family Medicine 03/24/22 documented as of this encounter
--- OUTSIDE RECORDS SUMMARY | 2025-06-25 08:05 | XMS_ITS | Encounter Summary ---
Author Organization Healthcare Address [address] [place] [id number] Care Team Providers Care Ice Cream Maker Name Role Phone Pcp, No Primary Care Provider Unavailabl e Reason for Visit * Reason Comments Med Refill Encounter Details Date Type Department Care Team ([facility] st Contact Info) Description 09/06/2023 Refill [facility] [place] [address] [facility], [address] [place] [address] Melva Modi PA [address] [place] [address] Social History Tobacco Use Types [...] drink first t ney in the morning (EYE-DRYING MACHINE OPERATOR PACKAGE YARNS) to steady your nerves or to get [...] documented as of this encounter Care Teams Ice Cream Maker Relationship Specialty Start Date End Date Pcp, [place] [address] PCP - General Family Medicine 03/24/22 documented as of this encounter
--- OUTSIDE RECORDS SUMMARY | 2025-06-25 08:05 | XMS_ITS | Encounter Summary ---
Author Organization Healthcare Address [address] [place] [id number] Care Team Providers Care Outreach Librarian Name Role Phone Pcp, No Primary Care Provider Unavailabl e Reason for Visit * Reason Comments Med Refill Encounter Details Date Type Department Care Team ([facility] st Contact Info) Description 05/03/2024 Refill [facility] [place] [address] [facility], [address] [place] [address] Melva Modi PA [address] [place] [address] Social History Tobacco Use Types [...] first t ney in the morning (EYE-SALES ANALYST) to steady your nerves or to [...] documented as of this encounter Care Teams Outreach Librarian Relationship Specialty Start Date End Date Pcp, [place] [address] PCP - General Family Medicine 03/24/22 documented as of this encounter
--- OUTSIDE RECORDS SUMMARY | 2025-06-25 08:05 | XMS_ITS | Clinical Summary ---
Author Organization [facility] Address [address] [place] [address] Phone Care Team Providers Care Vessel Welder Name Role Phone Sergio Hurtado MD Primary Care Provider [phone] Allergies Active Allergy Reactions Criticality Noted Date [...] Diagnosed Date Coronary artery disease invo lving cheesh-na coronary artery of cheesh-na heart without angina pectoris 04/15/2023 Abdominal aortic [...] patient's age to complete this topic Insurance [facility] [id number] [facility] [place]GERALDINESUR[place] [id number] [place] [id number] [facility] Advance Directives For more information, please contact: [phone] * Full Code (Latest Code Status on File) Date Activated Date Inactivated Comments 04/15/2023 12:50 AM 04/16/2023 9:26 PM Care Teams Vessel Welder Relationship Specialty Start Date End Date Sergio Hurtado MD [address] [facility] [address] [place] [address] PCP - General Family Medicine 04/14/23
[2025-06-25] MEDS: E-Z-GASII EFFERVESCENT GRANULES;1PK 1 EACH PO (08:34)
[2025-06-25] MEDS: BARIUM SULFATE (E-Z-HD 340GM);135ML BOTTLE 135 ML PO (08:34)
[2025-06-25] MEDS: BARIUM SULFATE(E-Z-AC);750ML BOTTLE 750 ML PO (08:34)
== END 2025-06-25 23:59 | disposition home or self-care (01) ==
LOC: RAD 08:03
PROVIDERS: PCP Nurse Practitioner Family; Visit Provider Nurse Practitioner
DX: K22.5 Diverticulum of esophagus, acquired (principal); M62.89 Other specified disorders of muscle
CPT/HCPCS: 74220

== ENCOUNTER 2025-07-09 13:44 | Outpatient (CLI) | payer MEDICAID, SELFPAY ==
--- NOTE | 2025-07-09 13:45 | MR_ITS ---
FINAL REPORT TECHNIQUE: Multiplanar and multisequence imaging of the brain was obtained before and after contrast injection. CLINICAL HISTORY: dizziness. intermittent right sided body tremors. headache COMPARISON: 05/28/2025 FINDINGS: Ventricles are normal in size. There is no mass effect or midline shift. Small foci of periventricular and subcortical white matter are nonspecific. No hydrocephalus. The cerebellum and brainstem have an unremarkable appearance. There are no areas of restricted diffusion on diffusion weighted images to suggest acute infarct. Soft tissues are without acute abnormality. Post contrast images reveal no pathologic contrast enhancement. IMPRESSION: No acute intracranial abnormality and no pathologic contrast enhancement. Periventricular and subcortical T2 abnormality, likely related to changes of chronic small vessel ischemia. Reviewed, Interpreted and Dictated by Coleen Kerr MD Transcribed by Ceci Su Authenticated and [facility]
--- OUTSIDE RECORDS SUMMARY | 2025-07-09 13:49 | XMS_ITS | Encounter Summary ---
Author Organization Healthcare Address [address] [place] [id number] Care Team Providers Care Diamond Powder Mixer Name Role Phone Pcp, No Primary Care Provider Unavailabl e Reason for Visit * Reason Comments Med Refill Encounter Details Date Type Department Care Team ([facility] st Contact Info) Description 05/03/2024 Refill [facility] [place] [address] [facility], [address] [place] [address] Melva Modi PA [address] [place] [address] Social History Tobacco Use Types [...] drink first t ney in the morning (EYE-INDUSTRIAL ENGINEER) to steady your nerves or to [...] documented as of this encounter Care Teams Diamond Powder Mixer Relationship Specialty Start Date End Date Pcp, [place] [address] PCP - General Family Medicine 03/24/22 documented as of this encounter
--- OUTSIDE RECORDS SUMMARY | 2025-07-09 13:50 | XMS_ITS | Clinical Summary ---
Author Organization Healthcare Address [address] [place] [address] Care Team Providers Care Skilled Helper Name Role Phone Pcp, No Primary Care [...] Type Department Care Team Description 05/03/2025 Telephone [facility] [address] [place] [address] HCN - Patient Message from Last [...] first t ney in the morning (EYE-DIRECTOR EPIDEMIOLOGY) to steady your nerves or to get [...] 2015 UKY-Zoster Vaccines (1 of 2) 2015 [id number] Vaccine (3 - 2024- season) 2025 10/26/2021, [...] this topic Medical Devices Implanted Type Area Assembly Detailer Device Identifier Shelf Expiration Date Model / Serial / Lot Valve Evolut Pro Transaortic 26mm - [id number] Implanted:Qty: 1 on 03/31/2023 by Sergio Faith MD at [facility] [id number] 11/09/2023 EVPROPLU S26 / [id number] / [id number] Procedures Procedure Name Priority Date/Time Associated Diagnosis [...] Adults <6.0% Children and Adolescents <7.5% Source: [place] Diabetes Association. Standards of medical care in diabetes,2017. Diabetes Care.2017:40 (suppl 1):S1-S135. HbA1c assay performed by an ion-exchange chromatography method that is certified traceable to the DCCT. us So A Zacher SUPERVISOR PUTTY AND CALUKING LAB BLOOD ORDERABLES Final R esult [facility] [address] [place] [address] from Last 3 Months or Most Recently [...] Patient has decision-making capacity? Yes Care Teams Skilled Helper Relationship Specialty Start Date End Date Pcp, Letty [address] [place] [address] PCP - General Family Medicine 03/24/22
--- OUTSIDE RECORDS SUMMARY | 2025-07-09 13:50 | XMS_ITS | Encounter Summary ---
Author Organization Healthcare Address [address] [place] [id number] Care Team Providers Care Staff Writer Name Role Phone Pcp, No Primary Care Provider Unavailabl e Reason for Visit * Reason Comments Med Refill Encounter Details Date Type Department Care Team ([facility] st Contact Info) Description 09/06/2023 Refill [facility] [place] [address] [facility], [address] [place] [address] Melva Modi PA [address] [place] [address] Social History Tobacco Use Types [...] drink first t ney in the morning (EYE-RESIDENTIAL TREATMENT STAFF) to steady your nerves or to get [...] documented as of this encounter Care Teams Staff Writer Relationship Specialty Start Date End Date Pcp, [place] [address] PCP - General Family Medicine 03/24/22 documented as of this encounter
--- OUTSIDE RECORDS SUMMARY | 2025-07-09 13:50 | XMS_ITS | Encounter Summary ---
Author Organization Healthcare Address [address] [place] [id number] Care Team Providers Care Reaming Machine Operator For Plastic Name Role Phone Pcp, No Primary Care Provider Unavailabl e Reason for Visit * Reason Onset Date Comments HCN - Patient Message 05/03/2025 Encounter Details Date Type Department Care Team (Late st Contact Info) Description 05/03/2025 Telephone [facility] [address] [place] [address] HCN - Patient Message Social [...] drink first t ney in the morning (EYE-HAIRMASTERS MANAGER) to steady your nerves or to [...] AM EDT Triage Note 05/14/2025 9:24 AM [phone] - Called patient. No answer. Left voice mail requesting a call back. * Telephone Encounter - Janie Mar - 05/09/2025 8:43 AM EDT Triage Note 05/09/2025 8:43 AM Called using [phone] - you have the wrong number. Called daughter using [phone] - No answer. Left vm req cb. [...] optimal time of day to reach caller: [phone] Note: Please do not reply to this message. Follow-up communication and further actions as a result of this message need to be communicated with the patient directly, if the patient is not active onMyChart. If the patient is active on MyChart, they will receive notification of the communication/outcome via enercastt. documented in this encounter Plan of Treatment Not on file documented as of this encounter Visit Diagnoses Not on filedocumented in this encounter Additional Health Concerns Assessment Noted Time A Body Mass Index follow-up plan has been documented for the patient 05/18/2023 11:07 AM EDT documented as of this encounter Care Teams Reaming Machine Operator For Plastic Relationship Specialty Start Date End Date Pcp, No [address] [place] [address] PCP - General Family Medicine 03/24/22 documented as of this encounter
--- OUTSIDE RECORDS SUMMARY | 2025-07-09 13:50 | XMS_ITS | Clinical Summary ---
Author Organization [facility] Address [address] [place] [address] Phone Care Team Providers Care Tube Room Cashier Name Role Phone Sergio Hurtado MD Primary Care Provider [phone] Allergies Active Allergy Reactions Criticality Noted Date [...] Diagnosed Date Coronary artery disease invo lving [place] coronary artery of [place] heart without angina pectoris 04/15/2023 Abdominal aortic [...] patient's age to complete this topic Insurance [facility] [id number] [facility] JAMESGERALDINESURYA ALBERTO [id number] [place] [id number] [facility] Advance Directives For more information, please contact: [phone] * Full Code (Latest Code Status on File) Date Activated Date Inactivated Comments 04/15/2023 12:50 AM 04/16/2023 9:26 PM Care Teams Tube Room Cashier Relationship Specialty Start Date End Date Sergio Hurtado MD [address] [facility] [address] [place] [id number] PCP - General Family Medicine 04/14/23
[2025-07-09] MEDS: GADOTERIDOL INJ 20ML SYRINGE 14 ML IV (14:27)
[2025-07-09] MEDS: SODIUM CHLORIDE 0.9% 10ML SYR (RAD ONLY) 10 ML IV (14:27)
== END 2025-07-09 23:59 | disposition home or self-care (01) ==
LOC: RAD 13:45
PROVIDERS: PCP Nurse Practitioner Family; Visit Provider Nurse Practitioner Family
DX: R90.89 Other abnormal findings on diagnostic imaging of central nervous system (principal); R51.9 Headache, unspecified; R42 Dizziness and giddiness; R26.81 Unsteadiness on feet; R25.1 Tremor, unspecified
CPT/HCPCS: 70553; A9576

== ENCOUNTER 2025-08-15 07:51 | Outpatient (CLI) | payer MEDICAID, SELFPAY ==
--- NOTE | 2025-08-15 08:15 | PC.NURSE ---
Pt unable to perform PFT. Pt stated woke up with a cold. Pt tried one FVC and stated she felt dizzy and going to pass out. Informed patient when she felt back to baseline to call and reschedule PFT. Pt on room air was 88%, encouraged pt to do 6 minute walk test. Pt refused 6 minute walk test. Pt stated she felt like she did not need to perform test because she was not going to wear oxygen and felt like she did not need it. Encouraged pt to go see her PCP to be seen, pt informed me she would.
== END 2025-08-15 23:59 | disposition home or self-care (01) ==
LOC: RT 07:52
PROVIDERS: PCP Nurse Practitioner Family; Visit Provider Internal Medicine Pulmonary Disease
DX: R06.02 Shortness of breath (principal); R06.09 Other forms of dyspnea

== ENCOUNTER 2025-08-15 08:23 | Emergency (ER) | payer MEDICAID, SELFPAY ==
[2025-08-15] VITALS (19 sets, daily range): BP systolic 113–161; BP diastolic 63–106; PULSE 65–125; RESP 9–24; TEMP 36.8–36.9; O2SAT 86–96; BMI 29.2
--- NOTE | 2025-08-15 08:30 | ECG_ITS ---
APPROVED REPORT Exam: Resting ECG HR:109 bpm ECG Measurements Heart Rate 109 AXES MO 116 P 45 QRSd 83 QRS -37 QT 334 T 64 QTc 398 Conclusion SINUS TACHYCARDIA WITH SHORT MO INTERVAL LEFT AXIS DEVIATION [QRS AXIS < -30] POSSIBLE RIGHT VENTRICULAR CONDUCTION DELAY [RSR (QR) IN V1/V2] No STEMI Electronically signed by : BENJI HUMPHREYS, 08/16/2025 06:42:55
--- NOTE | 2025-08-15 08:40 | ED_ITS ---
Discharge Plan Disposition Patient Disposition: Xfer Other Prescriptions Prescriptions: No Action fluticasone propionate [Flonase Allergy Relief] 50 mcg/actuation spray,suspension 2 spray intranasal DAILY 90 Days Qty: 16 2RF Rx Instructions: administer into each nostril (DME) nebulizers Mis See Rx Instructions .MEDSUPPLY Qty: 1 0RF Rx Instructions: As directed (DME) nebulizer accessories Kit See Rx Instructions .MEDSUPPLY Qty: 1 0RF Rx Instructions: As directed famotidine 40 mg tablet 40 mg PO DAILY Qty: 30 2RF nystatin-triamcinolone 100,000-0.1 unit/g-% cream 1 applic topical TID 14 Days Qty: 120 0RF doxycycline hyclate 100 mg capsule 100 mg PO BID 10 Days Qty: 20 0RF guaifenesin 100 mg/5 mL liquid 200 mg PO Q4H PRN (Reason: congestion) Qty: 473 2RF prednisone 20 mg tablet 20 mg PO BID 5 Days Qty: 10 0RF clopidogrel 75 mg tablet 75 mg PO DAILY Qty: 30 3RF furosemide 20 mg tablet 20 mg PO DAILYP PRN (Reason: Edema) Qty: 90 1RF Patient Comments: TAKE 1 TABLET BY MOUTH ONCE DAILY. pantoprazole 40 mg tablet,delayed release (DR/EC) See Rx Instructions .ROUTE .COMPLEX Qty: 90 0RF Dose Instruction: TAKE 1 TABLET BY MOUTH ONCE DAILY FOR GERD Rx Instructions: TAKE 1 TABLET BY MOUTH ONCE DAILY FOR GERD aspirin 81 mg tablet,chewable 81 mg PO DAILY Qty: 90 0RF levocetirizine 5 mg tablet 5 mg PO DAILY Qty: 30 3RF potassium chloride 10 mEq capsule, extended release 20 meq PO DAILY Qty: 60 0RF metoprolol tartrate 50 mg tablet 50 mg PO BID Qty: 180 0RF albuterol sulfate [Ventolin HFA] 90 mcg/actuation HFA aerosol inhaler 2 puff inhalation Q4H PRN (Reason: for wheezing) Qty: 18 2RF atorvastatin 80 mg tablet 80 mg PO HS trazodone 50 mg tablet 50 mg PO HS Trelegy Ellipta 200-62.5-25 mcg Blister With Device 1 inh inhalation DAILY 30 Days Qty: 60 0RF Referrals Follow up/Referrals: Sarah Alamo APRN [Primary Care Provider, Medical] - See instructions Clinical Impressions Clinical Impression: Ascending aortic dissection Print Language Print Language: Cape Verdean Discharge ED Provider: Isael Carmichael HPI General Chief Complaint: Shortness of Breath/Dyspnea Stated Complaint: soa, cough, sore throat Time Seen by Provider: 08/15/25 08:33 Mode of Arrival: Ambulatory Source of Information: Patient Description of Symptoms (Recalled from ER Triage Doc. by RN): Pt presents for evaluation of SOA that started today and states her pulse ox at home had low o2 levels. History of Present Illness HPI narrative: Nellie Alves is a 59-year-old female with a history of COPD, current tobacco use, coronary stents who presents to the emergency department for complaints of shortness of breath and cough. Patient states that she was being seen by respiratory therapy prior to arrival for a PFT but was unable to perform it due to shortness of breath and hypoxia. She does not normally wear oxygen. She was hypoxic on arrival to the mid 80s and was put on nasal cannula. She states that she has had an increase productive cough as well. She was taken off Trelegy 3 days ago for the PFT and has only been using her albuterol inhaler. She denies any chest pain Related Data Home Medications ?Medication ?Instructions ?Recorded ?Confirmed atorvastatin 80 mg tablet 80 mg PO HS 04/14/25 5 trazodone 50 mg tablet 50 mg PO HS 04/14/25 5 Previous Rx's ?Medication ?Instructions ?Recorded nebulizer accessories #1 ea 03/22/23 nebulizers #1 ea 03/22/23 clopidogrel 75 mg tablet 75 mg PO DAILY #30 tabs 03/05 05/29 fluticasone fur. 200 mcg-umeclid 1 inh inhalation HUNG Y 30 days #60 04/15/25 62.5 mcg-vilant 25 mcg ea inhalat.powder (Trelegy Ellipta) furosemide 20 mg tablet 20 mg PO DAILYP PRN Edema #9 0 tabs 04/18/25 nystatin-triamcinolone 100,000 1 applic topical TID dy suria 14 04/24/25 unit/g-0.1 % topical cream days #120 grams fluticasone propionate 50 2 spray intranasal DAILY 90 days 05/13/25 mcg/actuation nasal #16 grams spray,suspension (Flonase Allergy Relief) pantoprazole 40 mg tablet,delayed See Rx Instructions .Route 05/24/25 release .COMPLEX #90 tabs famotidine 40 mg tablet 40 mg PO DAILY #30 tabs 06/05 01/27 aspirin 81 mg chewable tablet 81 mg PO DAILY #90 tabs 07/02/25 doxycycline hyclate 100 mg capsule 100 mg PO BID 10 da ys #20 caps 07/17/25 guaifenesin 100 mg/5 mL oral liquid 200 mg (10 mL) PO Q4H PRN 07/17/25 congestion #473 mL prednisone 20 mg tablet 20 mg PO BID 5 days #10 tabs 07/17/25 levocetirizine 5 mg tablet 5 mg PO DAILY #30 tabs 07/06 11/27 Ventolin HFA 90 mcg/actuation 2 puff inhalation Q4H [place] N for 07/19/25 aerosol inhaler (albuterol sulfate) wheezing #18 grams metoprolol tartrate 50 mg tablet 50 mg PO BID #180 tab s 07/19/25 potassium chloride 10 mEq 20 meq (2 x 10 mEq) PO DAILY #60 07/19/25 capsule,extended release caps Allergies Allergy/AdvReac Type Severity Reaction Status Date / Time codeine Allergy Rash Verified 07/18/25 14:12 levofloxacin AdvReac Rash Verified 07/18/25 14:12 [facility] Disclaimer: The information contained in this section may have been updated after the patient was seen, as this information can be updated by other users. Medical History (Updated 08/15/25 @ 13:25 by Isael Carmichael MD) Encounter for immunization Zenkers diverticulum Dizziness Allergic rhinitis Nocturnal hypoxia Smoking greater than 30 pack years Pulmonary emphysema Chronic cough Globus sensation Loose stools Dysphagia Hypoxia Post-tussive emesis Right upper lobe pneumonia Pain and swelling of right ankle Abnormal findings on diagnostic imaging of heart and coronary circulation Abnormal ultrasound of liver Screening for cervical cancer Screening for breast cancer Abdominal bloating Acute exacerbation of chronic obstructive pulmonary disease Near syncope Acute bacterial bronchitis Bilateral carotid bruits NSTEMI (non-ST elevated myocardial infarction) Asthma exacerbation in COPD Dyspnea on exertion O2 dependent Falling Alcoholism Localized swelling of right lower extremity Right ankle swelling Cellulitis of right lower leg Gallstone Nausea vomiting and diarrhea RUQ abdominal pain Nausea Lower abdominal pain Encounter for pre-operative cardiovascular clearance History of staph infection Hoarseness Thoracic aortic aneurysm Hypertension Atypical angina Dyspnea Abnormal ECG Pain in right lower leg Edema of right lower leg Sore throat Dysuria URI, acute Sleep disorder Cholelithiasis Anxiety CAD (coronary artery disease) Hypomagnesemia Impetigo Family history of seizure in brother Murmur GERD (gastroesophageal reflux disease) COPD exacerbation Palpitation Screening, lipid Screening for diabetes mellitus MVP (mitral valve prolapse) Pre-syncope Chest pain Surgical History History of tonsillectomy and adenoidectomy S/P TAVR (transcatheter aortic valve replacement) History of heart artery stent S/P AVR (aortic valve replacement) Family History Father Pancreatic cancer Brother Myocardial infarction acute Social History Smoking Status: Current every day smoker tobacco type: cigarettes packs per day: 1 smoking status start date: 14yo years smoked: 45 quit status: not considering quitting alcohol intake: current alcohol intake frequency: 3 or more drinks per day counseling given: Yes counseling provided: provider counseling substance use type: denies use current occupational status: employed Travel in the last 8 weeks?: None Have you lived/traveled outside US in past 30 days?: No Contact w/someone who lives/traveled outside US past 30 days?: No Exposure to someone with infectious disease in past 14 days?: No Do you have a fever (greater than 100.4 F or 38 C)?: No Have you tested positive for COVID-19?: No Exposed to someone with COVID-19 in past 14 days?: No Do you have a sore throat?: Yes Do you have a cough?: Yes Do you have any weakness?: No Do you have any diarrhea?: No Are you experiencing any unusual bleeding?: No Do you have any muscle aches/pain?: No Do you have any abdominal pain?: No Are you experiencing loss of taste or smell?: No Other Medical History Have you received the Flu Vaccine for this season: No Have you received the Pneumonia Vaccine: No ROS Obtained: Yes Systems reviewed as appropriate & no additional complaints except as documented Physical Exam General General appearance: alert and in no apparent distress Head Head exam: atraumatic Eye Eye exam: Present normal appearance ENT ENT exam: Present normal external ear exam Neck Neck exam: Present full ROM Chest Chest inspection: Present symmetric chest wall rise Respiratory Respiratory exam: Present normal lung sounds bilaterally, respiratory distress and wheezes Cardiovascular Cardiovascular exam: Present normal rhythm and tachycardia Abdominal Exam Abdominal exam: Present soft; Absent distention, tenderness or guarding Extremities Exam Extremities exam: Present normal inspection Back Exam Back exam: Present normal inspection Neurological Exam Neurological exam: Present alert and oriented X3 Psychiatric Psychiatric exam: Present normal affect Skin Skin exam: Present warm and dry HEART Score HEART Score HEART Score assessment performed?: No Critical Care Critical Care Time Critical Care Time: Yes Attestation: On 08/15/25, the high probability of a clinically significant, sudden or life threatening deterioration of the following system(s) required my full and direct attention, intervention and personal management. The time I documented below is in addition to time spent performing reported procedures but includes the following listed in this critical care notation. Total Time Total Critical Care Time: 45 Medical Decision Making [facility] Inquiry Pt receiving controlled substance: No Vital Signs Vital Signs: 08/15/25 08:35 08/15/25 09:00 08/15/25 09:30 Temperature 98.3 F Temperature Source Oral Pulse Rate 104 H 121 H Pulse Rate [Right] 125 H Respiratory Rate 18 16 23 Blood Pressure 160/105 H 138/78 Blood Pressure [Right Arm] 161/106 H Blood Pressure Mean [Right Arm] 124 Blood Pressure Source [Right Arm] Automatic Cuff Blood Pressure Position [Right Arm] Sitting 02 Sat by Pulse Oximetry 86 L 91 L 89 L Oxygen Delivery Method Room Air Oxygen Flow Rate (LPM) 08/15/25 10:00 08/15/25 10:30 08/15/25 11:00 Temperature Temperature Source Pulse Rate 116 H 115 H 116 H Pulse Rate [Right] Respiratory Rate 24 19 13 Blood Pressure 136/77 130/77 122/74 Blood Pressure [Right Arm] Blood Pressure Mean [Right Arm] Blood Pressure Source [Right Arm] Blood Pressure Position [Right Arm] 02 Sat by Pulse Oximetry 91 L 92 L 95 Oxygen Delivery Method Nasal Cannula Oxygen Flow Rate (LPM) 3 08/15/25 11:30 08/15/25 12:00 08/15/25 12:25 Temperature Temperature Source Pulse Rate 120 H 116 H 101 H Pulse Rate [Right] Respiratory Rate 16 19 15 Blood Pressure 113/63 119/73 129/89 Blood Pressure [Right Arm] Blood Pressure Mean [Right Arm] Blood Pressure Source [Right Arm] Blood Pressure Position [Right Arm] 02 Sat by Pulse Oximetry 91 L 93 L 95 Oxygen Delivery Method Nasal Cannula Nasal Cannula Nasal Cannula Oxygen Flow Rate (LPM) 3 3 3 08/15/25 12:30 08/15/25 12:45 08/15/25 13:00 Temperature Temperature Source Pulse Rate 95 H 88 87 Pulse Rate [Right] Respiratory Rate 16 12 Blood Pressure 131/86 127/80 131/90 Blood Pressure [Right Arm] Blood Pressure Mean [Right Arm] Blood Pressure Source [Right Arm] Blood Pressure Position [Right Arm] 02 Sat by Pulse Oximetry 95 96 95 Oxygen Delivery Method Nasal Cannula Nasal Cannula Nasal Cannula Oxygen Flow Rate (LPM) 3 3 3 Lab Data Labs: Lab Results 08/15/25 08:30: SARS-CoV-2 (PCR) Not detected, Influenza A Untype (PCR) Not detected, Influenza Type B (PCR) Not detected 08/15/25 08:42: WBC 7.9, RBC 5.49 H, Hgb 17.4 H, Hct 48.9 H, MCV 89.1, MCH 31.7 H, MCHC 35.6 H, RDW 13.5, Plt Count 186, MPV 9.1, Neut % (Auto) 59.8, Lymph % (Auto) 29.9, [place] % (Auto) 5.9, Eos % (Auto) 2.4, Baso % (Auto) 1.6, Neut # (Auto) 4.7, Lymph # (Auto) 2.4, [place] # (Auto) 0.5, Eos # (Auto) 0.2, Baso # (Auto) 0.1, D-Dimer 0.51 H, VBG pH 7.44 H, VBG pCO2 36.6, VBG pO2 71.1 H, VBG HCO3 24.3, VBG Total CO2 25.4, VBG O2 Saturation 95.2 H, VBG Base Excess 0.1, V BG Lactic Acid 3.6 H, Sodium 136, Potassium 4.0, Chloride 96 L, Carbon Dioxide 25, Anion Gap 19.0 H, BUN 4 L, Creatinine 0.40 L, Estimated Creat Clear 163, Estimated GFR 163, Est GFR ( Amer) 198, Glucose 166 H, Calcium 8.8, Magnesium 2.1, Total Bilirubin 0.7, AST 150 H, ALT 127 H, Alkaline Phosphatase 153 H, Troponin I < 0.01, NT-Pro-B Natriuret Pep 104, Total Protein 8.4 H, Albumin 4.6, Globulin 3.8 H, Albumin/Globulin Ratio 1.2 08/15/25 11:55: Troponin I < 0.01 08/15/25 08:42 08/15/25 08:42 Response Orders (Tests/Meds): ED MEDICATIONS Generic Name Dose Route Start Last Admin Trade Name Freq PRN Reason Stop Dose Admin Esmolol HCl 2,500 mg in 250 mls @ 20.412 mls/hr 08/15/25 11:45 08/15/25 12:35 Esmolol In Water 2,500mg/250ml Premix IV 09/14/25 11:44 200 mcg/kg/min .[id number] PAYAM 81.65 mls/hr Protocol Titration 50 MCG/KG/MIN Diltiazem HCl 100 mg/ Sodium 100 mls @ 5 mls/hr 08/15/25 12:43 08/15/25 13:05 Chloride IV 09/14/25 12:42 10 mg/hr .Q20H PAYAM 10 mls/hr Protocol Titration 5 MG/HR Discontinued Medications Generic Name Dose Route Start Last Admin Trade Name Freq PRN Reason Stop Dose Admin Albuterol/Ipratropium 9 ml 08/15/25 08:37 08/15/25 08:55 Ipratropium/Albuterol 3 Ml Neb IH 08/15/25 08:38 9 ml ONCE ONE Administration Diltiazem HCl 17.5 mg 08/15/25 12:45 08/15/25 12:50 Diltiazem 25mg/5ml Vial IV 08/15/25 12:46 17.5 mg ONCE ONE Administration Magnesium Sulfate 2 gm in 50 mls @ 50 mls/hr 08/15/25 08:37 08/15/25 10:11 Magnesium Sulfate 2gm/50ml Premix IV 08/15/25 09:36 Infused ONCE ONE Infusion Lactated Ringer's 1,000 mls @ 999 mls/hr 08/15/25 09:05 08/15/25 10:12 Lactated Ringer's 1000 Ml Bag IV 08/15/25 10:05 Infused .Q1H1M ONE Infusion Lactated Ringer's 1,000 mls @ 999 mls/hr 08/15/25 11:05 08/15/25 12:48 Lactated Ringer's 1000 Ml Bag IV 08/15/25 12:05 Infused .Q1H1M ONE Infusion Iopamidol 80 ml 08/15/25 10:44 08/15/25 10:45 Iopamidol-370 (76%);100ml Bottle IV 08/15/25 10:45 80 ml ONCE ONE Administration Methylprednisolone Sodium Succinate 125 mg 08/15/25 08:37 08/15/25 08:55 Methylprednisolone Sod Succ 125mg Vial IV 08/15/25 08:38 125 mg ONCE ONE Administration Sodium Chloride 50 ml 08/15/25 10:44 08/15/25 10:45 0.9 % Sodium Chloride 50 Ml Vial IV 08/15/25 10:45 50 ml ONCE ONE Administration Sodium Chloride 10 ml 08/15/25 10:44 08/15/25 10:45 Sodium Chloride 0.9% 10ml Syr (Rad Only) IV 08/15/25 10:45 10 ml ONCE ONE Administration ORDERS Category Date Time Status CT angio chest PE protocol Stat Cat Scan 08/15/25 10:34 Completed CXR --portable [XR chest portable] Stat Exams 08/15/25 09:07 Completed BNP [NT Pro Brain Natriuretic Pep.] Stat Lab 08/15/25 08:42 Completed CBC w/Auto Diff [Complete Blood Count Auto Diff] Stat Lab 08/15/25 08:42 Completed CMP [Comprehensive Metabolic Panel] Stat Lab 08/15/25 08:42 Completed D-Dimer Stat Lab 08/15/25 08:42 Completed Lactic Acid Follow Up (RFLX 1) Stat Lab 08/15/25 12:52 Ordered Magnesium Stat Lab 08/15/25 08:42 Completed Rapid PCR Covid and Flu A/B Stat Lab 08/15/25 08:30 Completed Troponin I Q3H Lab 08/15/25 11:55 Completed Troponin I Q3H Lab 08/15/25 14:45 Ordered Troponin I Stat Lab 08/15/25 08:42 Completed VBG [Venous Blood Gas] Stat RT 08/15/25 08:42 Completed MDM Narrative Medical Decision Narrative: Nellie Alves is a 59-year-old female with a history of COPD, current tobacco use, coronary stents who presents to the emergency department for complaints of shortness of breath and cough. Patient states that she was being seen by respiratory therapy prior to arrival for a PFT but was unable to perform it due to shortness of breath and hypoxia. She does not normally wear oxygen. She was hypoxic on arrival to the mid 80s and was put on nasal cannula. She states that she has had an increase productive cough as well. She was taken off Trelegy 3 days ago for the PFT and has only been using her albuterol inhaler. She denies any chest pain. On arrival, patient is tachycardic. with heart rate in the 1 teens to 120s, she is hypoxic was put on 3 L nasal cannula with improvement to 91-95 SpO2. Cardiopulmonary exam shows increased work of breathing with mild scattered end expiratory wheezing. Cardiac exam showed tachycardia without murmur or rub. Differential diagnosis includes, but is not limited to: COPD exacerbation, pneumonia, pulmonary embolism, ACS, among others. The most morbid conditions were considered and workup was based on these. Hematologic labs were obtained, chest x-ray was obtained, EKG was obtained. EKG interpreted by me personally. Sinus tachycardia with a ventricular rate of [address] elevation or depression. QTc normal at 398 Patient was treated with continuous DuoNeb, 125 mg of Solu-Medrol, and 2 g IV magnesium sulfate. Chest x-ray interpreted by me personally. No focal consolidation, no pneumothorax, no widened mediastinum, no enlargement of the cardiac silhouette. Unremarkable chest x-ray. See radiology report for details. Laboratory studies were grossly unremarkable nonactionable suffer mildly elevated lactate. VBG shows mildly elevated pH of 7.44 but normal pCO2 of 36.6. Bicarb 25.4. No LUCIO. Troponin less than 0.01 x 2. Flu and COVID PCR is negative. Patient received 2 L of crystalloid but remained persistently hypertensive. Initial D-dimer was 0.51. Will obtain CT PE to rule out pulmonary embolism. CT PE was interpreted by me personally. No evidence of pulmonary embolism or ground glass opacity to suggest pneumonia. There is a small area in the proximal aorta that could represent a an intimal tear. This was discussed with the radiologist. Started on IV esmolol drip for rate control, however this only improved her heart rate to the 90s. Will add diltiazem load and drip as well. I did discuss patient's case with [facility] for cardiothoracic surgery, however they stated that although the surgeons are stuck in the OR and recommended transfer elsewhere. I then discussed patient's case with Dr. Manjarrez with cardiothoracic surgery at the [facility] who believes that this is likely motion artifact and recommended we get a gated CT scan of the chest to evaluate this further, however after discussing with our radiology department, we do not have protocols for gated CT chest. I discussed this with Dr. Manjarrez again and he wants the patient transferred as an ER to ER transfer. We then discussed patient's case with the ER doctor Dr. Galeano for transfer and was accepted as an ER to ER transfer. Patient's heart rate has improved to 78 bpm. Blood pressure is 143/94 at this time. Will arrange flight transport for patient due to concern for aortic dissection
--- NOTE | 2025-08-15 08:46 | PC.NURSE ---
RT called to notify of VBG sent to the lab
[2025-08-15 08:50] LABS: Hematocrit 48.9 % (37.0-47.0); Hemoglobin 17.4 g/dL (12.2-16.2); Immature Granulocytes % 0.4 %; Mean Corpuscular HGB Conc 35.6 g/dL (31.8-35.4); Mean Corpuscular Hemoglobin 31.7 pg (27.0-31.2); Mean Corpuscular Volume 89.1 fl (81-99); Nucleated Red Blood Cells % 0 %; Platelet Count 186 K/mm3 (142-424); Red Blood Count 5.49 M/mm3 (4.20-5.40); Red Cell Distribution Width-SD 44.2 fL; White Blood Count 7.9 K/mm3 (4.8-10.8)
[2025-08-15 08:51] LABS: Lactate Venous 3.6 mmol/L (0.4-2.0); VBG HCO3 24.3 mmol/L (23-30); VBG PCO2 36.6 mmol/L (35-51); VBG PH 7.44 mmol/L (7.31-7.41); VBG PO2 71.1 mmol/L (28-40)
[2025-08-15] MEDS: MAGNESIUM SULFATE IN WATER 2 GM/50 ML PIGGYBACK IV (08:53)
[2025-08-15] MEDS: METHYLPREDNISOLONE SOD SUCC 125MG VIAL 125 MG IV (08:55)
[2025-08-15] MEDS: IPRATROPIUM/ALBUTEROL 3 ML NEB 9 ML IH (08:55)
[2025-08-15 09:04] LABS: Albumin Level 4.6 g/dl (3.5-5.0); Chloride 96 mmol/L (98-107); Potassium 4.0 mmoL/L (3.5-5.1); Sodium 136 mmol/L (136-145)
--- NOTE | 2025-08-15 09:05 | PC.NURSE ---
provider notified of vbg lactic acid of 3.6
[2025-08-15 09:07] LABS: Alanine Aminotransferase 127 U/L (12-78); Albumin/Globulin Ratio 1.2 (1.1-1.8); Alkaline Phosphatase 153 U/L (38-126); Anion Gap 19.0 mEq/L (5-15); Aspartate Amino Transferase 150 U/L (14-36); Bilirubin,Total 0.7 mg/dl (0.2-1.3); Blood Urea Nitrogen 4 mg/dl (7-17); Carbon Dioxide 25 mmol/L (22.0-30.0); Creatinine Clearance Estimated 163 mL/min (50-200); Creatinine,Serum 0.40 mg/dl (0.52-1.04); Estimated Glomerular Filt Rate 163 ml/min (>60); GFR (African American) 198 ML/MIN (>60); Globulin 3.8 g/dL (1.3-3.2); Total Protein,Serum 8.4 g/dl (6.3-8.2)
--- NOTE | 2025-08-15 09:07 | XR_ITS ---
FINAL REPORT CLINICAL HISTORY: Shortness of breath COMPARISON: 04/13/2025 FINDINGS: A portable view of the chest was obtained. Cardiac and mediastinal silhouettes are within normal limits. Mild chronic changes are present in the lung bases. No acute osseous abnormality is identified. IMPRESSION: Chronic changes in the lung bases, stable. No acute cardiopulmonary abnormality identified. Reviewed, Interpreted and Dictated by Alexander Catherine MD Transcribed by Florence Martinez Authenticated and [facility]
[2025-08-15 09:08] LABS: Coronavirus 19, PCR Not Detected (NotDetected); Influenza A, PCR Not Detected (NotDetected); Influenza B, PCR Not Detected (NotDetected)
[2025-08-15 09:08] LABS: Calcium 8.8 mg/dl (8.4-10.2); Glucose 166 mg/dl (74-100); Magnesium 2.1 mg/dl (1.6-2.3)
[2025-08-15] MEDS: LACTATED RINGERS 1000ML 1,000 ML 999 ML IV ×2 (09:08→11:15)
[2025-08-15 09:16] LABS: NT Pro Brain Natriuretic Pep. 104 pg/mL (0-125)
[2025-08-15 09:22] LABS: Troponin I < 0.01 ng/ml (0.00-0.034)
[2025-08-15 09:27] LABS: D-Dimer 0.51 ug/mL (0.0-0.5)
--- NOTE | 2025-08-15 09:35 | PC.NURSE ---
Rounded with patient. Pt requesting to eat/drink. Per provider pt can have ice chips at this time. Pt provided with ice chips
--- NOTE | 2025-08-15 10:34 | CT_ITS ---
FINAL REPORT TECHNIQUE: The patient was injected with IV contrast. Axial images were obtained through the chest in a PE protocol. 3-D reconstruction images were also performed. Individualized dose reduction techniques using automated exposure control or adjustment of the MA and/or KV according to patient's size were employed. CLINICAL HISTORY: Tachycardia, short of breath COMPARISON: 02/19/2025 FINDINGS: Mediastinal vasculature is adequately opacified. No pulmonary artery filling defects are identified to suggest PE. The patient has undergone a prior aortic valve repair. The ascending aorta is dilated measuring up to 4.2 cm, was previously 4.1 cm. There is a new tiny intimal flap on the left side of the aorta, best seen on images #64 through 67 of series 5, that is new since the prior exam. There is no axillary adenopathy. There is no hilar or mediastinal adenopathy. The heart size is normal. There is no pericardial or pleural effusion. Limited images of the upper abdomen demonstrate fatty infiltration of the liver and a gallstone in the neck of the gallbladder. No suspicious infiltrate or nodule is identified. Calcified granulomas are present in the peripheral right middle lobe and in the left lung base. IMPRESSION: No pulmonary embolus. Ascending aortic aneurysm is stable, as is the aortic valve repair. However, there is a new tiny intimal flap on the left side of the aorta, best seen on images #[id number] of series 5, which is new, and worrisome for a subtle dissection. These results were called to Dr. Pérez at [facility] 08/15/2025 at 11:25 AM. Reviewed, Interpreted and Dictated by Alexander Catherine MD Transcribed by Florence Martinez Authenticated and [facility]
[2025-08-15] MEDS: 0.9 % SODIUM CHLORIDE 50 ML VIAL IV (10:45)
[2025-08-15] MEDS: SODIUM CHLORIDE 0.9% 10ML SYR (RAD ONLY) 10 ML IV (10:45)
[2025-08-15] MEDS: IOPAMIDOL-370 (76%);100ML BOTTLE 80 ML IV (10:45)
--- NOTE | 2025-08-15 11:25 | PC.NURSE ---
is speaking with [facility]
--- NOTE | 2025-08-15 11:37 | PC.NURSE ---
On the phone with now for patient transfer. He is on the phone with them now.
--- NOTE | 2025-08-15 11:39 | PC.NURSE ---
Images have been powershared.
[2025-08-15] MEDS: ESMOLOL HCL IN STERILE WATER 2,500 MG/250 ML PIGGYBACK 20.41 MG IV (11:55)
[2025-08-15 12:34] LABS: Troponin I < 0.01 ng/ml (0.00-0.034)
--- NOTE | 2025-08-15 12:41 | PC.NURSE ---
Called for a patient transfer. They are going to call back.
[2025-08-15 12:52] LABS: Reflex Lactic Add Lactic Reflex
--- NOTE | 2025-08-15 13:20 | PC.NURSE ---
Called [facility] to see if they would fly our patient to they are going to call back.
--- NOTE | 2025-08-15 13:28 | PC.NURSE ---
[facility] called back and they had to decline because of weather. I am now [facility] to see if they would be able to fly the patient.
--- NOTE | 2025-08-15 13:35 | PC.NURSE ---
I called and spoke with Jose Roberto COLLAZOP, I notified him of an ALS transport needed to [place].
== END 2025-08-15 14:24 | disposition other institution (70) ==
PROVIDERS: Emergency Provider Student in an Organized Health Care Education/Training Program; PCP Nurse Practitioner Family
DX: I71.010 Dissection of ascending aorta (principal); R09.02 Hypoxemia; R00.0 Tachycardia, unspecified; R74.02 Elevation of levels of lactic acid dehydrogenase [LDH]; J44.9 Chronic obstructive pulmonary disease, unspecified; F17.210 Nicotine dependence, cigarettes, uncomplicated; I10 Essential (primary) hypertension; Z95.4 Presence of other heart-valve replacement
CPT/HCPCS: 71045; 71275; 80053; 82803; 83735; 83880; 84484; 85025; 85378; 87636; 93005; 96365; 96366; 96367; 96375; 99285; 99291; J1806; J2919; J3475; J7120; Q9967

== ENCOUNTER 2025-08-23 12:47 | Outpatient (CLI) | payer MEDICAID, SELFPAY ==
--- OUTSIDE RECORDS SUMMARY | 2025-08-15 15:57 | XMS_ITS | Encounter Summary ---
Author Organization [facility] Address [address] [place] [address] Care Team Providers Care Endoscopy Registered Nurse Name Role Phone Pcp, No Primary Care Provider [phone] Source Comments This information has been disclosed [...] release of HIV test results or diagnoses. [id number] Reason for Visit * Reason Comments Medical Problem * Auth/Cert (Routine) Specialty Diagnoses / Procedures Referred By Contac t Referred To Contact Cardiology Diagnoses Thrombus Ascending aortic dissection [facility] [address] [place] [address] Phone: tel: Referral ID Status Reason Start Date Expiration Date Visits Re quested Visits Authorized [id number] 1 1 Encounter Details Date Type Department Care Team (Latest Contact Info) Description 08/15/2025 3:57 PM EST - 08/21/2025 11:48 AM EST Hospital Encounter [facility] [address] [place] [address] Amaris Mary MD [address] [place] [phone] Liza Forrest MD [address] [place] [phone] Quita Ricketts MD [address] Cardiology [address] [place] [address] Thrombus (Primary Dx); S/P TAVR (transcatheter aortic valve replacement); Acute on chronic diastolic heart failure ([facility]); Zenker's (hypopharyngeal) diverticulum; Abnormal CT scan of [...] any time in the past 12 m [facility], were you homeless or living in a half-way (including now)? No 08/16/2025 Utilities Answer Date Recorded In the past 12 months has th e electric, gas, oil, or water company [...] documented in this encounter Functional Status * Body Composition Question Answer Date of Assessment Author Weight Change (lbs) 0.07 08/18/2025 10:00 AM E Katherine Mendez RN * HIDDEN-Infusion Dashboard Answer Date of Assessment Author 109 08/21/2025 7:19 AM EST Sarah Hernandez * Peripheral Vascular Question Answer Date of Assessment Author Peripheral Vascular (WDL) WDL 08/20/2025 8:20 PM EST Katherine Caruso RN * [place]-Suicide Severity Rating Scale (C-SSR) Part 1 Question Answer Date of Assessment Author In the past month, have you wished you were or wished you could go to sleep and not wake up? No 08/15/2025 3:57 PM EST Shandra Brush RN In the past month, have you actually had any thoughts of killing yourself? No 08/15/2025 3:57 PM EST Shandra Brush RN * [place]-Suicide Severity Rating Scale (C-SSR) Part 2 Question Answer Date of Assessment Author Have you ever done anything, started to do anything, or prepared to do anything to end your life? No 08/15/2025 3:57 PM Shandra Casanova RN * Rating Scale Answer Date of Assessment Author LOW RISK 08/15/2025 3:57 PM Shandra Casanova RN * AUDIT-C Score Answer Date of Assessment Author 4 08/16/2025 2:53 AM Luis Lees RN * Alcohol Use Question Answer Date of Assessment Author Q1: How often do you have a drink containing alcohol? 2-3 times a week 08/16/2025 2:53 AM Lan Moser RN Q2: How many drinks containing alcohol do you have on a typical day when you are drinking? 3 or 4 08/16/2025 2:53 AM Elba Moser RN Q3: How often do you have six or more drinks on one occasion? Never 08/16/2025 2:53 AM Lan Moser RN * [place]-Suicide Severity Rating Scale (C-SSR) Part 1 Question Answer Date of Assessment Author In the past month, have you wished you were or wished you could go to sleep and not wake up? No 08/15/2025 3:57 PM Shandra Casanova RN In the past month, have you actually had any thoughts of killing yourself? No 08/15/2025 3:57 PM Shandra Casanova RN documented as of this encounter Discharge Summaries * Ingrid Banks RN - 08/21/2025 11:29 AM EST [facility] Management Discharge Summary Patient name: Nellie Alves [...] discharge: Not Applicable Danay RO, RN Inpatient Investigator Utility Bill Complaints [phone] * Bev Sierra MD - 08/21/2025 8:19 AM EST [facility] Inpatient Discharge Summary Patient: Nellie Alves Age: 59 y.o. CSN: [id number] Date of Admission: 08/15/2025 Date of Discharge: [...] [R06.02] 08/15/2025 COPD (chronic obstructive pulmonary disease) ([facility]) [J44.9] 08/15/2025 CAD (coronary artery disease) [I25.10] 08/15/2025 Status post coronary artery stent placement [Z95.5] 08/15/2025 GERD (gastroesophageal reflux disease) [K21.9] 08/15/2025 Allergies [T78.40XA] 08/15/2025 Aortic aneurysm (CMS-HCC) [I71.9] 08/15/2025 Resolved Hospital Problems No resolved [...] follow-up CT in one year. Imaging Follow-up #[id number]#: Recommend CT of the Abdomen with contrast [...] Trelegy Ellipta 100-62.5-25 mcg Dsdv Generic drug: nnvowsdnemv-ugplyrfuj-egygtuyf Inhale 1 puff into the lungs daily. Refills: 0 Ventolin HFA 90 mcg/actuation inhaler Generic drug: albuterol Inhale 2 puffs into the lungs every 6 hours as needed for Wheezing or Shortness of Breath. Refills: 0 STOP taking these medications furosemide 20 MG tablet Commonly known as: LASIX Where to Get Your Medications These medications were sent to [facility] [address] [place] [id number] Hours: Tuesday - Tuesday: 8:00AM - 6:00PM [...] PMH of aortic stenosis s/p TAVR at [facility] (2022), CAD s/p stents x4 (2022), [...] follow-up scheduled for 08/26 at 9:15am at [facility]. They will connect pt to coumadin clinic [...] sleep study COPD (chronic obstructive pulmonary disease) ([facility]) - Continue anoroellipta/asmanex, albuterol PRN - No oxygen needs per walk test CAD (coronary artery disease) Status post coronary artery stent placement History of stent placement post [place] in 2022, troponins here 19->17. Lactate 4.2- >2.5, possiblyfrom decreased perfusion after being on esmolol and diltiazem drip. Lipid panel w/ LDL 81, HDL 82, Triglycerides 124. - Continue ASA, statin Aortic aneurysm ([facility]) Transferred to [facility] from [facility] for concern of aortic dissection; was sent [...] for appt w/ her ENT provider in [place] GERD (gastroesophageal reflux disease) - continue PPI [...] Order Questions: Select Supplement: Boost-1 kcal/ml supplement ([facility] only) As listed above 4. Discharge specific [...] work up for NICOLLE w/ sleep study Tricot Knitter: - OP cardiology follow-up scheduled for 08/26 at 9:15am at [facility]. - Please connect pt w/ local coumadin clinic - Consider OP cardiothoracic surgery follow-up if indicated per cardiology for ascending aortic aneurysm - consider obtaining an OP PET scan to r/o valve uptake - follow-up Luis mutation lab; was pending at time of discharge Signed: Bev Sierra MD 08/21/2025, 8:26 AM [1] Allergies Allergen Reactions Codeine Hives Cosigned by Quita Ricketts MD at 08/21/2025 [...] You are also scheduled to see your feather duster winder at [facility] on 08/26/25 at 9:15am; at this visit, [...] sent through Care Everywhere. * Warfarin Information (Georgian) * Vitamin K Foods and Warfarin (Georgian) documented in this encounter Medications at Time of Discharge aspirin 81 MG chewable tablet Chew 1 tablet (81 mg total) by mouth daily. atorvastatin (LIPITOR) 80 MG tablet Take 1 tablet (80 mg total) by mouth daily. fluticasone-ume clidin-vilanter (TRELEGY ELLIPTA) 100-62.5-25 mcg DsDv [...] 14 tablet 08/21/2025 11:22 AM EST 08/21/2025 enoxaparin (LOVENOX) 60 mg/0.6 mL Syrg Inject 0.6 mLs (60 mg total) subcutaneously every 12 hours. 8.4 mL 1 08/21/2025 11:22 AM EST 08/20/2025 documented as of this encounter Progress Notes * Heather Toribio, PharmD - 08/20/2025 4:01 PM EST RX [facility] - Department of Pharmacy Services Anticoagulation Discharge [...] or surgery Drug Interactions Other prescription drugs, duzn-tcq-pnrbqno medications, and herbal supplements can interact with warfarin which can increase the risk of bleeding or decrease the effect of the drug Instructed to alert all providers who can prescribe new medications that the patient is on warfarin Instructed not to start or stop any lsqg-ddc-gmrharb medications or herbal supplements except on the [...] follow-up scheduled for 08/26 at 9:15am at [facility]. They will connect pt to coumadin clinic at this visit. Team to prescribe warfarin (electronic or written) at time of patient discharge, as appropriate. Heather Toribio PharmD Clinical Machine Adjuster Leader Case Trim, Cardiology Preferred contact: [place] [employer] Weekend/On-call pager: [phone] [1] Allergies Allergen Reactions Codeine Hives * [...] 1: Placed in And Linked Group heparin 05930 units in 0.45% NaCl 250 mL IV [...] Dose Rate 08/20/25 0110 New Bag heparin 37280 units in 0.45% NaCl 250 mL IV infusion 22 Units/kg/hr 16.1 mL/hr 08/19/25 0900 New Bag heparin 19867 units in 0.45% NaCl 250 mL IV infusion 22 Units/kg/hr 16.1 mL/hr 08/18/25 1720 New Bag heparin 67604 units in 0.45% NaCl 250 mL IV infusion 22 Units/kg/hr 16.1 mL/hr 08/18/25 0133 New Bag heparin 00379 units in 0.45% NaCl 250 mL IV infusion 22 Units/kg/hr 16.1 mL/hr 08/17/25 2142 Rate/Dose Change heparin 83179 units in 0.45% NaCl 250 mL IV infusion 22 Units/kg/hr 16.1 mL/hr 08/17/25 1102 Restarted heparin 88488 units in 0.45% NaCl 250 mL IV infusion 20 Units/kg/hr 14.6 mL/hr 08/17/25 1043 Paused heparin 76691 units in 0.45% NaCl 250 mL IV infusion 0 mL/hr 08/17/25 0807 New Bag heparin 97283 units in 0.45% NaCl 250 mL IV infusion 20 Units/kg/hr 14.6 mL/hr 08/17/25 0701 Given heparin (porcine) injection 3,000 Units 3,000 Units 08/17/25 0701 New Bag heparin 55522 units in 0.45% NaCl 250 mL IV infusion 20 Units/kg/hr 14.6 mL/hr 08/16/25 1225 New Bag heparin 27702 units in 0.45% NaCl 250 mL IV infusion 18 Units/kg/hr 13.1 mL/hr 08/15/25 1839 New Bag heparin 42728 units in 0.45% NaCl 250 mL IV [...] Sierra MD - 08/20/2025 6:28 AM EST [facility] Internal Medicine - Progress Note Team: [...] follow-up CT in one year. Imaging Follow-up #[id number]#: Recommend CT of the Abdomen with contrast [...] cardiology workup. Orders should be received from [facility] by morning. BNP 475 on 08/16/25; now [...] follow-up scheduled for 08/26 at 9:15am at [facility]. They will connect pt to coumadin clinic [...] Continuous tele COPD (chronic obstructive pulmonary disease) ([facility]) Possibly having a COPDe, will consider starting abx / pred once fluid status is better determined. - Goal O2 sat 88-92% - Continue anoroellipta/asmanex - Albuterol PRN - acapella, incentive spirometry ordered - walk test today CAD (coronary artery disease) Status post coronary artery stent placement History of stent placement post [place] in 2022, troponins here 19->17. Lactate 4.2- >2.5, possiblyfrom decreased perfusion after being on esmolol and diltiazem drip. - Continue ASA, statin - Lipid panel; LDL 81, HDL 82, Triglycerides 124 Aortic aneurysm ([facility]) Transferred to [facility] for concern of aortic dissection, was sent [...] as follow up apt. Walk test * Payal Bingham, PharmD - 08/19/2025 3:14 PM EST Images from [...] 1: Placed in And Linked Group heparin 70736 units in 0.45% NaCl 250 mL IV [...] Dose Rate 08/19/25 0900 New Bag heparin 75373 units in 0.45% NaCl 250 mL IV infusion 22 Units/kg/hr 16.1 mL/hr 08/18/25 1720 New Bag heparin 79200 units in 0.45% NaCl 250 mL IV infusion 22 Units/kg/hr 16.1 mL/hr 08/18/25 0133 New Bag heparin 92314 units in 0.45% NaCl 250 mL IV infusion 22 Units/kg/hr 16.1 mL/hr 08/17/25 2142 Rate/Dose Change heparin 25271 units in 0.45% NaCl 250 mL IV infusion 22 Units/kg/hr 16.1 mL/hr 08/17/25 1102 Restarted heparin 22638 units in 0.45% NaCl 250 mL IV infusion 20 Units/kg/hr 14.6 mL/hr 08/17/25 1043 Paused heparin 64318 units in 0.45% NaCl 250 mL IV infusion 0 mL/hr 08/17/25 0807 New Bag heparin 93664 units in 0.45% NaCl 250 mL IV infusion 20 Units/kg/hr 14.6 mL/hr 08/17/25 0701 Given heparin (porcine) injection 3,000 Units 3,000 Units 08/17/25 0701 New Bag heparin 42192 units in 0.45% NaCl 250 mL IV infusion 20 Units/kg/hr 14.6 mL/hr 08/16/25 1225 New Bag heparin 72865 units in 0.45% NaCl 250 mL IV infusion 18 Units/kg/hr .1 mL/hr 08/15/25 1839 New Bag heparin 02454 units in 0.45% NaCl 250 mL IV [...] Puga MD - 08/19/2025 8:36 AM EST [facility] Internal Medicine - Progress Note Team: [...] follow-up CT in one year. Imaging Follow-up #[id number]#: Recommend CT of the Abdomen with contrast [...] cardiology workup. Orders should be received from [facility] by morning. BNP 475 on 08/16/25. - [...] Continuous tele COPD (chronic obstructive pulmonary disease) ([facility]) Possibly having a COPDe, will consider starting abx / pred once fluid status is better determined. - Goal O2 sat 88-92% - Continue anoroellipta/asmanex - Albuterol PRN - acapella, incentive spirometry ordered CAD (coronary artery disease) Status post coronary artery stent placement History of stent placement post [place] in 2022, troponins here 19->17. Lactate 4.2- >2.5, possiblyfrom decreased perfusion after being on esmolol and diltiazem drip. - Continue ASA, statin - Lipid panel; LDL 81, HDL 82, Triglycerides 124 Aortic aneurysm ([facility]) Transferred to [facility] for concern of aortic dissection, was sent [...] Puga MD - 08/18/2025 7:07 AM EST [facility] Internal Medicine - Progress Note Team: [...] follow-up CT in one year. Imaging Follow-up #[id number]#: Recommend CT of the Abdomen with contrast [...] cardiology workup. Orders should be received from [facility] by morning. BNP 475 on 08/16/25. - [...] Continuous tele COPD (chronic obstructive pulmonary disease) ([facility]) Possibly having a COPDe, will consider starting abx / pred once fluid status is better determined. - Goal O2 sat 88-92% - Continue anoroellipta/asmanex - Albuterol PRN - acapella, incentive spirometry ordered CAD (coronary artery disease) Status post coronary artery stent placement History of stent placement post [place] in 2022, troponins here 19->17. Lactate 4.2- >2.5, possiblyfrom decreased perfusion after being on esmolol and diltiazem drip. - Continue ASA, statin - Lipid panel; LDL 81, HDL 82, Triglycerides 124 Aortic aneurysm ([facility]) Transferred to [facility] for concern of aortic dissection, was sent [...] Puga MD - 08/17/2025 9:07 AM EST [facility] Internal Medicine - Progress Note Team: Cardiology Mae Chief Concern / Reason for Follow-Up Shortness of breath, filling defect of valve leaflet seen on imaging Interval History SHANNANEO VSS Patient seen at bedside in no [...] follow-up CT in one year. Imaging Follow-up #[id number]#: Recommend CT of the Abdomen with contrast [...] cardiology workup. Orders should be received from [facility] by morning. BNP 475 on 08/16/25. - [...] Continuous tele COPD (chronic obstructive pulmonary disease) ([facility]) Possibly having a COPDe, will consider starting abx / pred once fluid status is better determined. - Goal O2 sat 88-92% - Continue anoroellipta/asmanex - Albuterol PRN CAD (coronary artery disease) Status post coronary artery stent placement History of stent placement post [place] in 2022, troponins here 19->17. Lactate 4.2- >2.5, possiblyfrom decreased perfusion after being on esmolol and diltiazem drip. - Continue ASA, statin - Lipid panel; LDL 81, HDL 82, Triglycerides 124 Aortic aneurysm ([facility]) Transferred to [facility] for concern of aortic dissection, was sent [...] echo here across the TAVR * Ernesto Felix DO - 08/16/2025 9:09 AM EST Cardiology [...] new ascending aortic dissection so transferred to [facility] for CT surgery evaluation. Gated CTA Chest [...] Puga MD - 08/16/2025 8:34 AM EST [facility] Internal Medicine - Progress Note Team: [...] follow-up CT in one year. Imaging Follow-up #[id number]#: Recommend CT of the Abdomen with contrast [...] cardiology workup. Orders should be received from [facility] by morning. - TTE + FIDEL ordered; [...] Continuous tele COPD (chronic obstructive pulmonary disease) ([facility]) Possibly having a COPDe, will consider starting abx / pred once fluid status is better determined. - Goal O2 sat 88-92% - Continue anoroellipta/asmanex - Albuterol PRN CAD (coronary artery disease) Status post coronary artery stent placement History of stent placement post [place] in 2022, troponins here 19->17. Lactate 4.2- >2.5, possiblyfrom decreased perfusion after being on esmolol and diltiazem drip. - Continue ASA, statin - Lipid panel; pending Aortic aneurysm ([facility]) Transferred to [facility] for concern of aortic dissection, was sent [...] for more details. Liza Forrest MD * Nettie VigilD - 08/15/2025 4:13 PM EST Clinical Pharmacy Progress Note: Pharmacotherapy Stewardship Encounter Date: 08/15/2025 Attending Physician: Amaris Mary MD Subjective: Nellie Alves is a(n) 59 y.o. female presenting to the hospital for <principal problem not specified>. Assessment/Plan: A comprehensive medication evaluation was conducted through the [facility] electronic medical record review for drug-drug, drug-disease, [...] Pressure in Adults: A Report of the [place] [employer]/[place] Heart Association Joint Committee on Clinical Practice Guidelines. Hypertension. 2024;82(10):f892-a376. doi:10.1161/HYP.[id number] Gary EM, Oscar O, [facility], et al. 2021 ACC/AHA Guideline for the Diagnosis and Management of Aortic Disease: A Report of the [place] [employer]/[place] College of Cardiology Joint Committee on Clinical Practice Guidelines. Circulation. 2021;146(24):i462-k382. doi:10. 1161/CIR.[id number] Thank you for allowing me to participate in the care of Nellie Alves as a part of the Emergency Medicine Team. Jenaro Herman PharmD Clinical Machine Adjuster Leader Case Trim, Emergency Medicine Preferred Communication via [place] [employer] Clinical Ohmvcfx-Ex-Yzgz Pager: [phone] 08/15/2025 4:14 PM Patient Characteristics: Patient Height, [...] (104-116)/(68-89) 104/68 Allergies Allergies as of 08/15/2025 (Not on File) Lab History No results [...] ALT , ALBUMIN No results found for: FJSK26Z Microbiology History Microbiology Results No orders found from 08/08/2025 to 08/16/2025. Current Medications Current Facility-Administered Medications Medication Dose Frequency Provider Last Admin esmolol (BREVIBLOC) IV infusion 0-200 mcg/kg/min Continuous Luis Alfredo Dodd MD 25 mcg/kg/min at 08/15/25 1613 niCARdipine 0-15 mg/hr Continuous Luis Alfredo Dodd [...] [facility] thus [facility] to for definitive testing and management. The patient does arrive on an esmolol drip but otherwise denies any complaints. VS reviewed. Exam unremarkable, movesall 4 extremities appropriately and all are well perfused, normal mentation, not writhing. Amaris Mary MD, CONNIE Emergency Medicine documented in this encounter H&P Notes * Ashwin Puga MD - 08/15/2025 7:30 PM EST [facility] Cardiology Wards - History and Physical [...] COPD. She was i nitially admitted at psychiatric where a CT-PA was obtained showing a possible new intimal flap in the ascending aorta. She was started on an esmolol and diltiazem drip and [facility] concern of aortic dissection [...] cardiology workup. Orders should be received from [facility] by morning. - TTE + FIDEL ordered; [...] Continuous tele COPD (chronic obstructive pulmonary disease) ([facility]) - Goal O2 sat 88-92% - Continue anoroellipta/asmanex - Albuterol PRN CAD (coronary artery disease) Status post coronary artery stent placement History of stent placement post [place] in 2022, troponins here 19->17. Lactate 4.2- >2.5, possiblyfrom decreased perfusion after being on esmolol and diltiazem drip. - Continue ASA, statin Aortic aneurysm ([facility]) Transferred to [facility] for concern of aortic dissection, was sent [...] Dodd MD - 08/15/2025 4:07 PM EST [facility] ED Note Date of Service: 08/15/2025 Reason for Visit: Medical Problem Patient History FRED Alves is a 59 y.o. female with PMH of TAVR, CAD s/p PCI/KARINA, known ascending aortic aneurysm whopresents to the ED from outside hospital ED ([facility]) for evaluation of a possible new thoracic [...] was discussed with Dr. Rik Jolly at [facility] cardiothoracic surgery who accepted her for transfer. [...] Rhythm: Normal sinus rhythm Rate: 85 bpm [place]: Left axis deviation Intervals: QTc 504 and [...] as of 08/15/25 1859 Sofía Aug 15, [id number] CT Angio Chest W and or WO [...] admit patient to cardiology for further workup. 1817 Lactate, Endy(!): 4.2 1817 High Sensitivity Troponin(!): 19 Medications received during [...] AM ESTAssociated Order(s): IP CONSULT TO ENT [facility] DIVISION OF OTOLARYNGOLOGY- HEAD & NECK [...] study/scope by an outside GI team in [place], presenting during current hospitalization for cardiac evaluation [...] ~2 months ago by GI team in [place] following a swallow test. No prior repair. [...] Resource Strain: High Risk (04/15/2023) Received from [facility] Overall Financial Resource Strain (CARDIA) Difficulty of [...] No Physical Activity: Inactive (04/15/2023) Received from [facility] Exercise Vital Sign On average, how many [...] mg total) by mouth daily. Yes 08/14/2025 biubushsaus-khratazli-pkeenfge (TRELEGY ELLIPTA) 100-62.5-25 mcg DsDv Inhale 1 [...] of breath COPD (chronic obstructive pulmonary disease) ([facility]) CAD (coronary artery disease) Status post coronary artery stent placement GERD (gastroesophageal reflux disease) Allergies Aortic aneurysm ([facility]) Zenker diverticulum Cosigned by Holland Sesay MD at 08/19/2025 7:50 AM EST Associated attestation - Holland Sesay MD - 08/19/2025 7:50 AM EST agree * Jeimy Soriano RD - 08/16/2025 12:26 PM ESTAssociated Order(s): IP CONSULT TO NUTRITION SERVICES [facility] Medical Nutrition Therapy Reason for Completion: [...] on 3L NC. She was taken to [facility] where CT-PA was obtained. The local radiologist [...] (needs based on 68.8 kg CBW) Kcals/day: 7311-6055 (20-25 kcal/kg) Protein g/day: 69-83 (1-1.2 g/kg) Carbohydrate g/day: Carbohydrates are not restricted Fluid ml/day: ~1mL/kcal or per MD Anthropometrics: Height: Ht Readings from Last 1 Encounters: 08/16/25 5' (1.524 m) Current Weight: Wt Readings from Last 1 Encounters: 08/16/25 151 lb 11.2 oz (68.8 kg) BMI: Body mass index is 29.63 kg/m??. BMI Classification: Pre Obese: 25 - 29.9 [place] Body Weight: 100 lb (45.45 kg) +/- [...] Jeimy Soriano RD [1] Allergies Allergen Reactions Codeine Hives * Ingrid Banks RN - 08/16/2025 11:03 AM EST HEALTH Care Management/Social Work Assessment Patient Information Patient Name: Nellie Alves Hospital Day: 1 Inpatient/Observation: Inpatient Admit Date: 08/15/2025 Admission Diagnosis: Thrombus [I82.90] Attending provider: Liza Forrest MD PCP: No Pcp Home Pharmacy: [facility] [address] [facility] [address] [facility] [address] Pertinent Medications Anticoagulation therapy: Yes Anticoagulant (Name of Drug): ASA New Diabetic: No Issues related to obtaining medications: none Payor Information Medical Insurance Coverage: Payor: GENERIC MANAGED MEDICAID / Plan: PASSPORT [employer] MANAGED MEDICAID / Product Type: Medicaid [facility] care / Secondary Payor: n/a Functional Assessment [...] ADL Comments: n/a Work History: 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 Marital Status: Number of children and their names: Shawn Almaguer Angel Relative Search Completed: No Demographics Correct:: Yes Current Living Arrangements Current Living Arrangements Current Living Arrangements: Home Type of Housing: Apartment Who do you live with?: Alone History of Falls?: Yes Frequency of Falls: infrequent Community Services Community Services Community Services at Home: Respiratory Respiratory Company Name/Phone #: Unknown Oxygen Needs: Nebulizer Was any abuse reported by patient?: No [place] Status & Connection to [facility] Services Status & Connection to [place] Services Are you a ?: No Support Systems Emergency contact: Extended Emergency Contact Information Primary Emergency Contact: nicolasa cagle Mobile Relation: Daughter Support Systems Legal Status: N/A Name of Guardian/POA/ Payee and Phone Number: n/a Primary Caregiver: Self Caregiver name/phone number: n/a Times of available support: Limited 24/ hands on (add comment) Marital Status: Number of children and their names: Shawn Almaguer Angel Relative Search Completed: No Demographics Correct:: Yes Expected Discharge Disposition: Home Next of Kin: Shawn Diallo Angel ([phone]) Next of Kin Relationship: Daughter, Son Next of Kin Phone Number: Shawn Diallo Angel ([phone]) Assessment Information Obtained From:: Patient, Chart Review [...] financial interest(s) are disclosed as appropriate. Danay Banks MSN, RN Inpatient Investigator Utility Bill Complaints [phone] * Amna Suarez MD - 08/15/2025 5:27 [...] on 3L NC. She was taken to [facility] where CT-PA was obtained. The local radiologist [...] artery disease PSH: - Cardiac stents x4 ([facility], ~2022) - Transcatheter aortic valve replacement ([facility], ~2022) - Multiple right foot/ankle surgeries [...] communicated to them. #[id number]# Report Verified by: Albetro Hathaway MD at 08/15/2025 5:16 PM EST Signed by: Alberto Hathaway MD on 08/15/2025 5:16 PM Assessment and Plan Nellie Alves is a 59 year old female with a PMH of HTN, COPD, CAD s/p cardiac stenting x4, and aortic stenosis s/p TAVR at the [facility] ~2022 who presented to [facility] with lightheadedness, dyspnea, and hypoxia after undergoing elective PFT's. CT-PA at [facility] was read as concerning for new intimal [...] valvular dysfunction - Please follow-up with Dr. Jolly outpatient or with her local feather duster winder/cardiac surgeon - Remainder of care per Emergency [...] Rik Jolly IV, MD, FACS Cardiac Surgeon [phone] documented in this encounter Nursing Notes * [...] and is agreeable. Receiving RN may call [phone] to consult ED RN with questions regarding [...] JEANNETTE Rodriguez - 08/15/2025 4:26 PM EST [facility] Social Work Trauma / Critically Ill Assessment Nellie Alves [id number] Patient Registered as ZZZ: No Reason for Referral / Presenting Problem: Medical problem Means of Arrival: EMS: [facility] [place] Patient Arrived from: Outside Hospital: [facility] Legal Next of Kin: Adult Children: Yes Name: Nicolasa Cagle ( daughter) [phone] Contact Information: Above Family Contact and Involvement: Patient stated that her family is aware that she was transferred to [facility] but was not expecting anyone to come to the hospital. Assessment and Social Work Interventions: 59 year old female was transferred to [facility] via ambulance from an outside hospital. Upon arrival, patient was noted to have a GCS, farmworker fruit met with patient who was alert and stated that she was not expecting any family and gave the social media editor the phone number of her daughter. farmworker fruit contacted the patient's daughter and confirmed that the patient's daughter is at [facility]. Safety Concerns: None known Referral / Disposition Plan: PT admitted to JEANNETTE Cook * Cailin Serrano RN - 08/15/2025 3:57 PM EST Bed: SRUU Expected date: 08/15/25 Expected time: Means of arrival: Comments: [facility] Transfer/Ascending aortic dissection/Esmolol and Nicardipine drips documented in this encounter Miscellaneous Notes * Care Coordination - Ingrid Banks RN - 08/21/2025 10:39 AM EST [facility] Case Management/Social Work Department Progress Note Patient Information Patient Name: Nellie Alves Hospital day: 6 Inpatient/Observation: Inpatient Level of Care: Floor Admit date: 08/15/2025 Admission diagnosis: Thrombus [I82.90] PMH: has a past medical history of Aortic stenosis, CAD (coronary artery disease), and GERD (gastroesophageal reflux disease). PCP: No Pcp Home Pharmacy: [facility] [address] [facility] [address] [facility] - [place], [place] - [address] [facility] [address] [facility] [id number] Medical Insurance Coverage: Payor: GENERIC MANAGED MEDICAID [...] Mgr. Aaron Gunn to send pt to [facility] for a Lyft. Discharge Plan Anticipated discharge plan: Home Anticipated discharge date: 08/21 CM/SW will continue to follow and remain available for discharge planning needs. Danay Banks MSN, RN Inpatient Investigator Utility Bill Complaints [phone] * Plan of Care - Evie Brown [...] Patient will remain free of falls Goal: [place] Fall Precautions Outcome: Progressing Problem: Daily Care [...] Patient will remain free of falls Goal: [place] Fall Precautions Outcome: Progressing Problem: Daily Care [...] Patient will remain free of falls Goal: [place] Fall Precautions Outcome: Progressing Problem: Daily Care [...] Patient will remain free of falls Goal: [place] Fall Precautions Outcome: Progressing Problem: Daily Care [...] Banks RN - 08/20/2025 1:57 PM EST [facility] Case Management/Social Work Department Progress Note Patient Information Patient Name: Nellie Alves Hospital day: 5 Inpatient/Observation: Inpatient Level of Care: Floor Admit date: 08/15/2025 Admission diagnosis: Thrombus [I82.90] PMH: has a past medical history of Aortic stenosis, CAD (coronary artery disease), and GERD (gastroesophageal reflux disease). PCP: No Pcp Home Pharmacy: [facility] [address] [facility] [address] [facility] - [place], [place] - [address] [facility] [address] [facility] [id number] Medical Insurance Coverage: Payor: GENERIC MANAGED MEDICAID / Plan: [employer] SURYA MANAGED MEDICAID / Product Type: Medicaid [place] care / Other Pertinent Information Rounded with team. Per team, pt is not medically ready for discharge at this time. Pt to d/c on warfarin; team coordinating INR monitoring and PCP follow-up with [facility]. Pt needs a walk test due to oxygen use; FELIPE Dexter coordinating. Primary RN made aware. Discharge Plan Anticipated discharge plan: Home Anticipated discharge date: 08/21 CM/SW will continue to follow and remain available for discharge planning needs. Danay Banks MSN, RN Inpatient Investigator Utility Bill Complaints [phone] * Plan of Care - Ian Varghese [...] Patient will remain free of falls Goal: [place] Fall Precautions Outcome: Progressing Problem: Daily Care [...] Jacquelin Dexter - 08/20/2025 12:15 PM EST [facility] was notified that patient would need home oxygen services upon discharge. In order to obtain home oxygen prior to discharge, patient will need documentation of room air oxygen testing from a physician, physician instructional support assistant, nurse or respiratory therapist within 48 hours [...] __ liters of oxygen during exertion: ____% [facility] will continue to follow. Jacquelin Dexter Vp [employer] Care Management Services [phone] * Plan of Care - Katherine Caruso [...] Patient will remain free of falls Goal: [place] Fall Precautions Outcome: Progressing Problem: Daily Care Goal: Daily care needs are met Description: Assess and monitor ability to perform self care and identify potential discharge needs. Outcome: Progressing Problem: Patient will remain free of falls Goal: [place] Fall Precautions Outcome: Progressing Problem: Daily Care [...] Banks RN - 08/19/2025 1:51 PM EST Health Case Management/Social Work Department Progress Note Patient Information Patient Name: Nellie Alves Hospital day: 4 Inpatient/Observation: Inpatient Level of Care: Floor Admit date: 08/15/2025 Admission diagnosis: Thrombus [I82.90] PMH: has a past medical history of Aortic stenosis, CAD (coronary artery disease), and GERD (gastroesophageal reflux disease). PCP: No Pcp Home Pharmacy: [facility] [address] [facility] [address] [facility] - [place], [place] - [address] [facility] [address] [facility] [id number] Medical Insurance Coverage: Payor: GENERIC MANAGED MEDICAID / Plan: [email or web address] [employer] MANAGED MEDICAID / Product Type: Medicaid [place] [...] discharge planning needs. Danay RO, RN Inpatient Investigator Utility Bill Complaints [phone] * Plan of Care - Belinda Roman [...] Patient will remain free of falls Goal: [place] Fall Precautions Outcome: Progressing Problem: Daily Care [...] Patient will remain free of falls Goal: [place] Fall Precautions Outcome: Progressing Problem: Daily Care [...] Patient will remain free of falls Goal: [place] Fall Precautions Outcome: Progressing Problem: Daily Care [...] Patient will remain free of falls Goal: [place] Fall Precautions Outcome: Progressing Problem: Daily Care [...] Patient will remain free of falls Goal: [place] Fall Precautions Outcome: Progressing Problem: Daily Care [...] Patient will remain free of falls Goal: [place] Fall Precautions Outcome: Progressing Problem: Daily Care [...] Patient will remain free of falls Goal: [place] Fall Precautions Outcome: Progressing Problem: Daily Care [...] Patient will remain free of falls Goal: [place] Fall Precautions Outcome: Progressing Problem: Daily Care [...] Patient will remain free of falls Goal: [place] Fall Precautions Outcome: Progressing Problem: Daily Care [...] Patient will remain free of falls Goal: [place] Fall Precautions Outcome: Progressing Problem: Daily Care Goal: Daily care needs are met Description: Assess and monitor ability to perform self care and identify potential discharge needs. Outcome: Progressing Problem: Psychosocial Needs Goal: Demonstrates ability to cope with hospitalization/illness Description: Assess and monitor patients ability to cope with his/her illness. Outcome: Progressing Problem: Patient will remain free of falls Goal: [place] Fall Precautions Outcome: Progressing Problem: Daily Care Goal: Daily care needs are met Description: Assess and monitor ability to perform self care and identify potential discharge needs. Outcome: Progressing * Care Coordination - Ingrid Banks RN - 08/16/2025 12:40 PM EST Per Cards request, RN/CONSUELO called [facility] ([phone]) and [facility] ([phone]) requesting medical records. Records to be faxed to DU/CONSUELO fax. Danay RO, RN Inpatient Investigator Utility Bill Complaints [phone] * Plan of Care - Beata Baker [...] documented in this encounter Plan of Treatment Pending Results Name Type Priority Associated Diagnoses Date /Time Davian MPN JAK2 [id number] w/Reflex (Exon 12-13, CALR, MPL) Pathology and Cytology Routine 08/18/2025 9:17 AM EST Scheduled Orders Name Type Priority Associated Diagnoses Order Schedule EP Study Electrophysiology Routine Once fo r 1 Occurrences starting 08/16/2025 until 08/16/2025 Davian MPN [id number] [id number] w/Reflex (Exon 12-13, CALR, MPL) Pathology and Cytology Routine Once for 1 Occurrences starting 08/18/2025 until 08/18/2025 documented as of this encounter Procedures Procedure [...] EST APTT-HEPARIN Timed 08/18/2025 10:26 AM EST RENAL FUNCTION PANEL W/EGFR STAT [...] scan (08/22/2025 2:44 PM EST) us Scanning Uchvam SCAN DOCS - NO RESULTS Final Res ult * FALGUNI Rhythm Strip - Scan (08/21/2025 9:06 AM EST) us Scanning Uchvam SCAN DOCS - NO RESULTS Final Res ult * Protime-INR (08/21/2025 8:42 AM EST) Protime 13.0 12.1 - 15.1 seconds 08/21/2025 9:30 AM EST [facility] INR 0.9 0.9 - 1.1 08/21/2025 9:30 AM EST [facility] Comment: RECOMMENDED THERAPEUTIC RANGES USING INR : Stable oral anticoagulant therapy: 2.0 - 3.0 Mechanical prosthetic heart valve: 2.5 - 3.5 Recurrent acute myocardial infarction: 2.5 - 3.5 Plasma 08/21/2025 8:42 AM EST 08/21/2025 9:07 AM EST Marie Davila MD LAB BLOOD ORDERABLES Final Re sult Performing Organization Address [facility] Co de Phone Number [facility] [address] [facility]. [address] * Protime-INR (08/21/2025 5:23 AM EST) Protime 13.1 12.1 - 15.1 seconds 08/21/2025 5:55 AM EST [facility] INR 1.0 0.9 - 1.1 08/21/2025 5:55 AM EST [facility] Comment: RECOMMENDED THERAPEUTIC RANGES USING INR : Stable oral anticoagulant therapy: 2.0 - 3.0 Mechanical prosthetic heart valve: 2.5 - 3.5 Recurrent acute myocardial infarction: 2.5 - 3.5 Plasma 08/21/2025 5:23 AM EST 08/21/2025 5:35 AM EST Heather Toribio PharmD LAB BLOOD ORDERABLES Final Result Performing Organization Address [facility] Co de Phone Number [facility] [address] [facility]. [address] * Magnesium (08/21/2025 5:23 AM EST) Magnesium 2.1 1.5 - 2.5 mg/dL 08/21/2025 6:19 AM EST [facility] Plasma 08/21/2025 5:23 AM EST 08/21/2025 5:35 AM EST Marie Davila MD LAB BLOOD ORDERABLES Final Re sult Performing Organization Address [facility] Co de Phone Number [facility] [address] * (ABNORMAL) Renal Function Panel w/EGFR (08/21/2025 5:23 AM EST) Sodium 133 133 - 146 mmol/L 08/21/2025 6:19 AM EST [facility] Potassium 3.8 3.5 - 5.3 mmol/L 08/21/2025 6:19 AM [facility] Chloride 97(L) 98 - 110 mmol/L 08/21/2025 6:19 AM [facility] CO2 27 21 - 33 mmol/L 08/21/2025 6:19 AM [facility] Comment:High lactate dehydro genase concentrations in patient samples may cause falsely increased bicarbonate results. If markedly elevated LDH is observed or suspected, please assess results in conjunction with patient`s clinical presentation. In cases of discrepant results, consider evaluating CO2 in with a blood gas order. Anion Gap 9 3 - 16 mmol/L 08/21/2025 6:19 AM [facility] BUN 12 7 - 25 mg/dL 08/21/2025 6:19 AM [facility] Creatinine 0.52(L) 0.60 - 1.30 mg/dL 08/21/2025 6:19 AM [facility] Glucose 230(H) 70 - 100 mg/dL 08/21/2025 6:19 AM [facility] Calcium 9.0 8.6 - 10.3 mg/dL 08/21/2025 6:19 AM [facility] Phosphorus 4.4 2.1 - 4.7 mg/dL 08/21/2025 6:19 AM [facility] Albumin 3.9 3.5 - 5.7 g/dL 08/21/2025 6:19 AM [facility] Osmolality, Calculated 283 278 - 305 mOsm/kg 08/21/2025 6:19 AM [facility] EGFR >90 08/21/2025 6:19 AM [facility] Comment: As of 2021, the estimated [...] Kahlil C, Niru M, Govind DC, Ector BERNARD, Anyi RAUSCH, Jonah LA, et al. A [...] MD LAB BLOOD ORDERABLES Final Re sult [facility] [address] [facility] [place] [address], [facility] * (ABNORMAL) CBC (08/21/2025 5:23 AM EST) WBC 8.5 3.8 - 10.8 10E3/uL 08/21/2025 5:50 AM EST [facility] RBC 5.07 3.80 - 5.10 10E6/uL 08/21/2025 5:50 AM EST [facility] Hemoglobin 16.2(H) 11.7 - 15.5 g/dL 08/21/2025 5:50 AM EST [facility] Hematocrit 47.0(H) 35.0 - 45.0 % 08/21/2025 5:50 AM EST [facility] MCV 92.6 80.0 - 100.0 fL 08/21/2025 5:50 AM EST [facility] MCH 32.0 27.0 - 33.0 pg 08/21/2025 5:50 AM EST [facility] MCHC 34.6 32.0 - 36.0 g/dL 08/21/2025 5:50 AM EST [facility] RDW 14.2 11.0 - 15.0 % 08/21/2025 5:50 AM EST [facility] Platelets 151 140 - 400 10E3/uL 08/21/2025 5:50 AM EST [facility] MPV 8.4 7.5 - 11.5 fL 08/21/2025 5:50 AM EST [facility] Whole Blood 08/21/2025 5:23 AM EST 08/21/2025 5:35 AM EST Marie Davila MD LAB BLOOD ORDERABLES Final Re sult [facility] [address] [facility]. [address] * FALGUNI Rhythm Strip - Scan (08/20/2025 8:00 PM EST) us Scanning Uchhim SCAN DOCS - NO RESULTS Final Res ult * FALGUNI Rhythm Strip - Scan (08/20/2025 7:53 AM EST) us Scanning Uchhim SCAN DOCS - NO RESULTS Final Res ult * Protime-INR, AM (08/20/2025 5:31 AM EST) Protime 12.8 12.1 - 15.1 seconds 08/20/2025 6:05 AM EST [facility] INR 0.9 0.9 - 1.1 08/20/2025 6:05 AM EST [facility] Comment: RECOMMENDED THERAPEUTIC RANGES USING INR : Stable oral anticoagulant therapy: 2.0 - 3.0 Mechanical prosthetic heart valve: 2.5 - 3.5 Recurrent acute myocardial infarction: 2.5 - 3.5 Plasma 08/20/2025 5:31 AM EST 08/20/2025 5:38 AM EST Marie Davila MD LAB BLOOD ORDERABLES Final Re sult [facility] [address] [facility]. [address] * (ABNORMAL) C-Reactive Protein (08/20/2025 5:31 AM EST) CRP 11.6(H) 1.0 - 10.0 mg/L 08/20/2025 6:04 AM EST [facility] Plasma 08/20/2025 5:31 AM EST 08/20/2025 5:38 AM EST us Marie Davila MD LAB BLOOD ORDERABLES Final Re sult Performing Organization Address [facility]/ZIP Co de Phone Number [facility] [address] [facility]. [address] * Sed Rate (08/20/2025 5:31 AM EST) Sed Rate 29 0 - 30 mm/hr 08/20/2025 6:00 AM EST [facility] Whole Blood 08/20/2025 5:31 AM EST 08/20/2025 5:38 AM EST us Marie Davila MD LAB BLOOD ORDERABLES Final Re sult Performing Organization Address [facility] Co de Phone Number [facility] [address] [facility]. [address] * Magnesium (08/20/2025 5:31 AM EST) Magnesium 1.8 1.5 - 2.5 mg/dL 08/20/2025 6:04 AM EST [facility] Plasma 08/20/2025 5:31 AM EST 08/20/2025 5:38 AM EST us Marie Davila MD LAB BLOOD ORDERABLES Final Re sult Performing Organization Address [facility] Co de Phone Number [facility] [address] [facility]. [address] * (ABNORMAL) Renal Function Panel w/EGFR (08/20/2025 5:31 AM EST) Sodium 135 133 - 146 mmol/L 08/20/2025 6:04 AM EST [facility] Potassium 4.0 3.5 - 5.3 mmol/L 08/20/2025 6:04 AM EST [facility] Chloride 98 98 - 110 mmol/L 08/20/2025 6:04 AM EST [facility] CO2 28 21 - 33 mmol/L 08/20/2025 6:04 AM EST [facility] Comment:High lactate dehydro genase concentrations in patient samples may cause falsely increased bicarbonate results. If markedly elevated LDH is observed or suspected, please assess results in conjunction with patient`s clinical presentation. In cases of discrepant results, consider evaluating CO2 in with a blood gas order. Anion Gap 9 3 - 16 mmol/L 08/20/2025 6:04 AM EST [facility] BUN 13 7 - 25 mg/dL 08/20/2025 6:04 AM EST [facility] Creatinine 0.53(L) 0.60 - 1.30 mg/dL 08/20/2025 6:04 AM [facility] Glucose 134(H) 70 - 100 mg/dL 08/20/2025 6:04 AM EST [facility] Calcium 9.3 8.6 - 10.3 mg/dL 08/20/2025 6:04 AM EST [facility] Phosphorus 4.7 2.1 - 4.7 mg/dL 08/20/2025 6:04 AM [facility] Albumin 3.9 3.5 - 5.7 g/dL 08/20/2025 6:04 AM [facility] Osmolality, Calculated 282 278 - 305 mOsm/kg 08/20/2025 6:04 AM EST [facility] EGFR >90 08/20/2025 6:04 AM EST [facility] Comment: As of 2021, the estimated [...] as >90mL/min/1.73m2. Reference: Kahlil C, Niru M, Gvoind DC, Ector ND, Anyi RAUSCH, Jonah LA, [...] MD LAB BLOOD ORDERABLES Final Re sult [facility] [address] * (ABNORMAL) CBC (08/20/2025 5:31 AM EST) WBC 9.0 3.8 - 10.8 10E3/uL 08/20/2025 5:44 AM EST [facility] RBC 5.21(H) 3.80 - 5.10 10E6/uL 08/20/2025 5:44 AM EST [facility] Hemoglobin 16.6(H) 11.7 - 15.5 g/dL 08/20/2025 5:44 AM EST [facility] Hematocrit 47.5(H) 35.0 - 45.0 % 08/20/2025 5:44 AM EST [facility] MCV 91.3 80.0 - 100.0 fL 08/20/2025 5:44 AM EST [facility] MCH 31.8 27.0 - 33.0 pg 08/20/2025 5:44 AM EST [facility] MCHC 34.9 32.0 - 36.0 g/dL 08/20/2025 5:44 AM EST [facility] RDW 14.2 11.0 - 15.0 % 08/20/2025 5:44 AM EST [facility] Platelets 151 140 - 400 10E3/uL 08/20/2025 5:44 AM EST [facility] MPV 8.2 7.5 - 11.5 fL 08/20/2025 5:44 AM EST [facility] Whole Blood 08/20/2025 5:31 AM EST 08/20/2025 5:38 AM EST us Marie Davila MD LAB BLOOD ORDERABLES Final Re sult [facility] [address] * aPTT-Heparin (08/20/2025 5:31 AM EST) hPTT 114.0 90.0 - 120.0 seconds 08/20/2025 6:07 AM EST [facility] Plasma 08/20/2025 5:31 AM EST 08/20/2025 5:38 AM EST us Ousmane Palumbo MD LAB BLOOD ORDERABLES Fi nal Result [facility] [address] [place] [facility]. [address] * FALGUNI Rhythm Strip - Scan (08/19/2025 8:30 PM EST) us Scanning Uchhim SCAN DOCS - NO RESULTS Final Res ult * Protime-INR (08/19/2025 2:36 PM EST) Protime 12.9 12.1 - 15.1 seconds 08/19/2025 3:45 PM EST [facility] INR 0.9 0.9 - 1.1 08/19/2025 3:45 PM EST [facility] Comment: RECOMMENDED THERAPEUTIC RANGES USING INR : Stable oral anticoagulant therapy: 2.0 - 3.0 Mechanical prosthetic heart valve: 2.5 - 3.5 Recurrent acute myocardial infarction: 2.5 - 3.5 Plasma 08/19/2025 2:36 PM EST 08/19/2025 3:18 PM EST us Marie Davila MD LAB BLOOD ORDERABLES Final Re sult [facility] [address] [facility]. [address] * CT Thoracic Structures-Rad Interp (08/19/2025 10:59 [...] a [address] scanner, a preliminary hand decorator study was obtained. Following administration of intravenous [...] a [address] scanner, a preliminary hand decorator study wasobtained. Following administration of intravenous contrast, [...] a [address] scanner, a preliminary hand decorator study was obtained. Following administration of intravenous [...] a [address] scanner, a preliminary hand decorator study wasobtained. Following administration of intravenous contrast, [...] Strip - Scan (08/19/2025 8:09 AM EST) Scanning Uchhim SCAN DOCS - NO RESULTS Final Res ult * aPTT-Heparin (08/19/2025 5:52 AM EST) Pathologist [facility] hPTT 117.5 90.0 - 120.0 seconds 08/19/2025 6:34 AM EST [facility] Plasma 08/19/2025 5:52 AM EST 08/19/2025 6:13 AM EST Chato Boone MD LAB BLOOD ORDERABLES Giuliana mora Result [facility] [address] [facility]. [address] * (ABNORMAL) CBC (08/19/2025 5:52 AM EST) WBC 7.4 3.8 - 10.8 10E3/uL 08/19/2025 6:30 AM EST [facility] RBC 5.25(H) 3.80 - 5.10 10E6/uL 08/19/2025 6:30 AM EST [facility] Hemoglobin 16.4(H) 11.7 - 15.5 g/dL 08/19/2025 6:30 AM EST [facility] Hematocrit 49.0(H) 35.0 - 45.0 % 08/19/2025 6:30 AM EST [facility] MCV 93.2 80.0 - 100.0 fL 08/19/2025 6:30 AM EST [facility] MCH 31.3 27.0 - 33.0 pg 08/19/2025 6:30 AM EST [facility] MCHC 33.6 32.0 - 36.0 g/dL 08/19/2025 6:30 AM EST [facility] RDW 14.3 11.0 - 15.0 % 08/19/2025 6:30 AM EST [facility] Platelets 139(L) 140 - 400 10E3/uL 08/19/2025 6:30 AM EST [facility] MPV 8.4 7.5 - 11.5 fL 08/19/2025 6:30 AM EST [facility] Whole Blood 08/19/2025 5:52 AM EST 08/19/2025 6:13 AM EST [employer] [employer] LAB BLOOD ORDERABLES Final Result Performing Organization Address City/[facility]/ZIP Co de Phone Number [facility] [address] * Magnesium (08/19/2025 5:52 AM EST) Magnesium 1.9 1.5 - 2.5 mg/dL 08/19/2025 7:08 AM EST [facility] Plasma 08/19/2025 5:52 AM EST 08/19/2025 6:13 AM EST [facility] [employer] LAB BLOOD ORDERABLES Final Result Performing Organization Address City/[facility]/ZIP Co de Phone Number [facility] [address] * (ABNORMAL) Renal Function Panel w/EGFR (08/19/2025 5:52 AM EST) Sodium 135 133 - 146 mmol/L 08/19/2025 7:08 AM [facility] Potassium 4.0 3.5 - 5.3 mmol/L 08/19/2025 7:08 AM [facility] Chloride 99 98 - 110 mmol/L 08/19/2025 7:08 AM [facility] CO2 30 21 - 33 mmol/L 08/19/2025 7:08 AM [facility] Comment:High lactate dehydro genase concentrations in patient samples may cause falsely increased bicarbonate results. If markedly elevated LDH is observed or suspected, please assess results in conjunction with patient`s clinical presentation. In cases of discrepant results, consider evaluating CO2 in with a blood gas order. Anion Gap 6 3 - 16 mmol/L 08/19/2025 7:08 AM [facility] BUN 9 7 - 25 mg/dL 08/19/2025 7:08 AM [facility] Creatinine 0.52(L) 0.60 - 1.30 mg/dL 08/19/2025 7:08 AM [facility] Glucose 122(H) 70 - 100 mg/dL 08/19/2025 7:08 AM [facility] Calcium 8.9 8.6 - 10.3 mg/dL 08/19/2025 7:08 AM [facility] Phosphorus 4.1 2.1 - 4.7 mg/dL 08/19/2025 7:08 AM [facility] Albumin 3.8 3.5 - 5.7 g/dL 08/19/2025 7:08 AM [facility] Osmolality, Calculated 280 278 - 305 mOsm/kg 08/19/2025 7:08 AM [facility] EGFR >90 08/19/2025 7:08 AM [facility] Comment: As of 2021, the estimated GFR is calculated using the 2020 Chronic Kidney Disease Epidemiology Collaboration (CKD-EPI) equation. In line with the NKF-ASN Task Force Recommendations, this equation does not include a coefficient for race. A single eGFR value is calculated for each patient. The reference interval is >60 mL/min/1.73m2. eGFR values greater than 90 will be reported as >90mL/min/1.73m2. Reference: Niru Dixon, Govind [place], Ector [place], Anyi [place], Jonah [...] BLOOD ORDERABLES Final Result Performing Organization Address City/[facility]/ZIP Co de Phone Number [facility] [address] * (ABNORMAL) POC Glucose Monitoring Device (08/18/2025 11:44 PM EST) POC Glucose Monitoring Device 191(H) 70 - 100 mg/dL 08/18/2025 11:45 PM EST [facility] Blood 08/18/2025 11:4 4 PM EST 08/18/2025 11:45 PM EST Liza Forrest MD POINT OF CARE TEST ORDERABLES Final Result [facility] [address] [facility]. [address] * FALGUNI Rhythm Strip - Scan (08/18/2025 7:23 PM EST) Scanning [employer] SCAN DOCS - NO RESULTS Final Res ult * aPTT-Heparin (08/18/2025 5:50 PM EST) hPTT 93.7 90.0 - 120.0 seconds 08/18/2025 6:39 PM EST [facility] Plasma 08/18/2025 5:50 PM EST 08/18/2025 6:14 PM EST [email or web address] LAB BLOOD ORDERABLES Final Result [facility] [address] [facility]. [address] * Magnesium (08/18/2025 5:50 PM EST) Magnesium 2.0 1.5 - 2.5 mg/dL 08/18/2025 6:48 PM EST [facility] Plasma 08/18/2025 5:50 PM EST 08/18/2025 6:14 PM EST [facility] [employer] [facility] [employer] [facility] BLOOD ORDERABLES Final Result Performing Organization Address [facility] Co de Phone Number [facility] [address] [facility]. [address] * (ABNORMAL) Renal Function Panel w/EGFR (08/18/2025 5:50 PM EST) Sodium 137 133 - 146 mmol/L 08/18/2025 6:48 PM EST [facility] Potassium 3.5 3.5 - 5.3 mmol/L 08/18/2025 6:48 PM EST [facility] Chloride 97(L) 98 - 110 mmol/L 08/18/2025 6:48 PM EST [facility] CO2 30 21 - 33 mmol/L 08/18/2025 6:48 PM EST [facility] Comment:High lactate dehydro genase concentrations in patient samples may cause falsely increased bicarbonate results. If markedly elevated LDH is observed or suspected, please assess results in conjunction with patient`s clinical presentation. In cases of discrepant results, consider evaluating CO2 in with a blood gas order. Anion Gap 10 3 - 16 mmol/L 08/18/2025 6:48 PM EST [facility] BUN 11 7 - 25 mg/dL 08/18/2025 6:48 PM EST [facility] Creatinine 0.51(L) 0.60 - 1.30 mg/dL 08/18/2025 6:48 PM EST [facility] Glucose 147(H) 70 - 100 mg/dL 08/18/2025 6:48 PM EST [facility] Calcium 9.3 8.6 - 10.3 mg/dL 08/18/2025 6:48 PM EST [facility] Phosphorus 4.6 2.1 - 4.7 mg/dL 08/18/2025 6:48 PM EST [facility] Albumin 3.9 3.5 - 5.7 g/dL 08/18/2025 6:48 PM EST [facility] Osmolality, Calculated 286 278 - 305 mOsm/kg 08/18/2025 6:48 PM EST [facility] EGFR >90 08/18/2025 6:48 PM EST [facility] Comment: As of 2021, the estimated [...] 5:50 PM EST 08/18/2025 6:14 PM EST us Chely Andrews DO LAB BLOOD ORDERABLES Final Result [facility] [address] [place] [address], [facility] * B Natriuretic Peptide (08/18/2025 5:50 PM EST) BNP 79 0 - 100 pg/mL 08/18/2025 6:52 PM EST [facility] Comment: BNP may be increased in the presence of sacubitril/valsartan (Entresto). Please interpret accordingly. Plasma 08/18/2025 5:50 PM EST 08/18/2025 6:14 PM EST Narrative [facility] - 08/18/2025 6:52 PM EST The presence of high concentrations of biotin may cause falsely lowered BNP results. Biotin interference may be seen if an individual is taking >5 mg biotin per day. Interpret BNP results in the context of the patient's clinical presentation. us Chely Andrews DO LAB BLOOD ORDERABLES Final Result [facility] [address] * aPTT-Heparin (08/18/2025 10:26 AM EST) hPTT 115.8 90.0 - 120.0 seconds 08/18/2025 10:35 AM EST [facility] Plasma 08/18/2025 10:2 6 AM EST 08/18/2025 10:27 AM EST us Ashwin Puga MD LAB BLOOD ORDERABLES Final Result Performing Organization Address City/[facility]/ZIP Co de Phone Number [facility] [address] [facility]. [address] * (ABNORMAL) Renal Function Panel w/EGFR, STAT (08/18/2025 9:17 AM EST) Sodium 136 133 - 146 mmol/L 08/18/2025 10:30 AM EST [facility] Potassium 3.1(L) 3.5 - 5.3 mmol/L 08/18/2025 10:30 AM EST [facility] Chloride 97(L) 98 - 110 mmol/L 08/18/2025 10:30 AM EST [facility] CO2 28 21 - 33 mmol/L 08/18/2025 10:30 AM EST [facility] Comment:High lactate dehydro genase concentrations in patient samples may cause falsely increased bicarbonate results. If markedly elevated LDH is observed or suspected, please assess results in conjunction with patient`s clinical presentation. In cases of discrepant results, consider evaluating CO2 in with a blood gas order. Anion Gap 11 3 - 16 mmol/L 08/18/2025 10:30 AM EST [facility] BUN 10 7 - 25 mg/dL 08/18/2025 10:30 AM [facility] Creatinine 0.45(L) 0.60 - 1.30 mg/dL 08/18/2025 10:30 AM [facility] Glucose 146(H) 70 - 100 mg/dL 08/18/2025 10:30 AM [facility] Calcium 9.0 8.6 - 10.3 mg/dL 08/18/2025 10:30 AM [facility] Phosphorus 3.6 2.1 - 4.7 mg/dL 08/18/2025 10:30 AM [facility] Albumin 3.9 3.5 - 5.7 g/dL 08/18/2025 10:30 AM [facility] Osmolality, Calculated 284 278 - 305 mOsm/kg 08/18/2025 10:30 AM [facility] EGFR >90 08/18/2025 10:30 AM [facility] Comment: As of 2021, the estimated [...] Puga MD LAB BLOOD ORDERABLES Final Result [facility] [address] [place] [address], [facility] * FALGUNI Rhythm Strip - Scan (08/18/2025 8:19 AM EST) us Scanning [employer]chhim SCAN DOCS - NO RESULTS Final Res ult * (ABNORMAL) CBC (08/18/2025 7:39 AM EST) WBC 7.8 3.8 - 10.8 10E3/uL 08/18/2025 8:08 AM EST [facility] RBC 5.38(H) 3.80 - 5.10 10E6/uL 08/18/2025 8:08 AM EST [facility] Hemoglobin 17.1(H) 11.7 - 15.5 g/dL 08/18/2025 8:08 AM EST [facility] Hematocrit 49.1(H) 35.0 - 45.0 % 08/18/2025 8:08 AM EST [facility] MCV 91.3 80.0 - 100.0 fL 08/18/2025 8:08 AM EST [facility] MCH 31.7 27.0 - 33.0 pg 08/18/2025 8:08 AM EST [facility] MCHC 34.8 32.0 - 36.0 g/dL 08/18/2025 8:08 AM EST [facility] RDW 14.0 11.0 - 15.0 % 08/18/2025 8:08 AM EST [facility] Platelets 140 140 - 400 10E3/uL 08/18/2025 8:08 AM EST [facility] MPV 8.4 7.5 - 11.5 fL 08/18/2025 8:08 AM EST [facility] Whole Blood 08/18/2025 7:39 AM EST 08/18/2025 7:48 AM EST [facility]ly [employer] LAB BLOOD ORDERABLES Final Result [facility] [address] [facility]. [address] * Magnesium (08/18/2025 7:39 AM EST) Magnesium 1.8 1.5 - 2.5 mg/dL 08/18/2025 8:43 AM EST [facility] Plasma 08/18/2025 7:39 AM EST 08/18/2025 7:48 AM EST [facility] [employer] LAB BLOOD ORDERABLES Final Result Performing Organization Address [facility] Co de Phone Number [facility] [address] [facility]. [address] * (ABNORMAL) Renal Function Panel w/EGFR (08/18/2025 7:39 AM EST) Sodium 137 133 - 146 mmol/L 08/18/2025 8:43 AM EST [facility] Potassium 3.4(L) 3.5 - 5.3 mmol/L 08/18/2025 8:43 AM EST [facility] Chloride 98 98 - 110 mmol/L 08/18/2025 8:43 AM EST [facility] CO2 26 21 - 33 mmol/L 08/18/2025 8:43 AM EST [facility] Comment:High lactate dehydro genase concentrations in patient samples may cause falsely increased bicarbonate results. If markedly elevated LDH is observed or suspected, please assess results in conjunction with patient`s clinical presentation. In cases of discrepant results, consider evaluating CO2 in with a blood gas order. Anion Gap 13 3 - 16 mmol/L 08/18/2025 8:43 AM EST [facility] BUN 11 7 - 25 mg/dL 08/18/2025 8:43 AM EST [facility] Creatinine 0.42(L) 0.60 - 1.30 mg/dL 08/18/2025 8:43 AM EST [facility] Glucose 107(H) 70 - 100 mg/dL 08/18/2025 8:43 AM EST [facility] Calcium 9.0 8.6 - 10.3 mg/dL 08/18/2025 8:43 AM EST [facility] Phosphorus 4.7 2.1 - 4.7 mg/dL 08/18/2025 8:43 AM EST [facility] Albumin 3.9 3.5 - 5.7 g/dL 08/18/2025 8:43 AM EST [facility] Osmolality, Calculated 284 278 - 305 mOsm/kg 08/18/2025 8:43 AM EST [facility] EGFR >90 08/18/2025 8:43 AM EST [facility] Comment: As of 2021, the estimated [...] Andrews DO LAB BLOOD ORDERABLES Final Result [facility] [address] [place] [id number] * (ABNORMAL) aPTT-Heparin (08/17/2025 7:42 PM EST) hPTT 83.7(L) 90.0 - 120.0 seconds 08/17/2025 8:26 PM EST [facility] Plasma 08/17/2025 7:42 PM EST 08/17/2025 7:57 PM EST us Ashwin Puga MD LAB BLOOD ORDERABLES Final Result Performing Organization Address [facility] Co de Phone Number [facility] [address] [facility]. [address] * ECG 12 lead (MUSE) (08/17/2025 1:04 PM EST) 08/17/2025 1:04 PM EST Narrative MUSE - 08/18/2025 9:53 PM EST Ventricular Rate: 72 BPM Atrial Rate: 72 BPM P-R Interval: 130 ms QRS Duration: 84 ms QT: 432 ms QTc: 473 ms P [place]: 27 degrees R [place]: -1 degrees T [place]: 26 degrees Diagnosis Line: NORMAL SINUS RHYTHM NONSPECIFIC ST-T SEGMENT CHANGES ABNORMAL ECG Confirmed by Zahraa Diehl ([id number]) on 08/18/2025 9:53:47 PM us Quita Ricketts MD ECG ORDERABLES Final Result Performing Organization Address [facility] Co de Phone Number MUSE * aPTT-Heparin (08/17/2025 12:34 PM EST) hPTT 110.0 90.0 - 120.0 seconds 08/17/2025 1:25 PM EST [facility] Plasma 08/17/2025 12:3 4 PM EST 08/17/2025 12:56 PM EST us Quita Ricketts MD LAB BLOOD ORDERABLES Final Re sult Performing Organization Address [facility] Co de Phone Number [facility] [address] [facility]. [address] * EKG - scan (08/17/2025 11:02 AM EST) us Scanning [employer] SCAN DOCS - NO RESULTS Final Res ult * Magnesium, STAT (08/17/2025 7:59 AM EST) Magnesium 1.7 1.5 - 2.5 mg/dL 08/17/2025 9:24 AM EST [facility] Plasma 08/17/2025 7:59 AM EST 08/17/2025 8:35 AM EST us Ashwin Puga MD LAB BLOOD ORDERABLES Final Result [facility] [address] [place], [place] [address] * (ABNORMAL) Renal Function Panel w/EGFR (08/17/2025 7:59 AM EST) Sodium 138 133 - 146 mmol/L 08/17/2025 9:24 AM EST [facility] Potassium 3.0(L) 3.5 - 5.3 mmol/L 08/17/2025 9:24 AM EST [facility] Comment:Hemolysis Present: R esults may be influenced artificially. Recommend recollection as clinically indicated. Chloride 98 98 - 110 mmol/L 08/17/2025 9:24 AM EST [facility] CO2 30 21 - 33 mmol/L 08/17/2025 9:24 AM [facility] Comment:High lactate dehydro genase concentrations in patient samples may cause falsely increased bicarbonate results. If markedly elevated LDH is observed or suspected, please assess results in conjunction with patient`s clinical presentation. In cases of discrepant results, consider evaluating CO2 in with a blood gas order. Anion Gap 10 3 - 16 mmol/L 08/17/2025 9:24 AM EST [facility] BUN 9 7 - 25 mg/dL 08/17/2025 9:24 AM EST [facility] Creatinine 0.51(L) 0.60 - 1.30 mg/dL 08/17/2025 9:24 AM EST [facility] Glucose 159(H) 70 - 100 mg/dL 08/17/2025 9:24 AM EST [facility] Calcium 8.6 8.6 - 10.3 mg/dL 08/17/2025 9:24 AM EST [facility] Phosphorus 3.7 2.1 - 4.7 mg/dL 08/17/2025 9:24 AM EST [facility] Albumin 3.7 3.5 - 5.7 g/dL 08/17/2025 9:24 AM EST [facility] Osmolality, Calculated 288 278 - 305 mOsm/kg 08/17/2025 9:24 AM EST [facility] EGFR >90 08/17/2025 9:24 AM EST [facility] Comment: As of 2021, the estimated [...] Puga MD LAB BLOOD ORDERABLES Final Result [facility] [address] * FALGUNI Rhythm Strip - Scan (08/17/2025 7:44 AM EST) us Scanning [employer] SCAN DOCS - NO RESULTS Final Res ult * Lipid Profile (08/17/2025 5:43 AM EST) Non-HDL Cholesterol, Calculated 106 0 - 129 mg/dL 08/17/2025 7:11 AM EST [facility] Comment: Desirable: < 130 mg/dL Above Desirable: 130-159 mg/dL Borderline High: 160-189 mg/dL High: 190-219 mg/dL Very High: > 219 mg/dL Cholesterol, Total 188 0 - 200 mg/dL 08/17/2025 7:11 AM EST [facility] Triglycerides 124 10 - 149 mg/dL 08/17/2025 7:11 AM EST [facility] HDL 82 60 - 92 mg/dL 08/17/2025 7:11 AM EST [facility] Comment: LIPID PROFILE INTERPRETATION CHOLESTEROL,TOTAL(mg/dL) DESIRABLE: [...] LDL Cholesterol 81 mg/dL 7:11 AM EST [facility] Plasma 08/17/2025 5:43 AM EST 08/17/2025 6:18 AM EST Narrative [facility] - 08/17/2025 7:11 AM EST LDL cholesterol calculated using the Friedewald equation. us Heather Toribio PharmD LAB BLOOD ORDERABLES Final Result [facility] [address] [place] [address], [facility] * (ABNORMAL) CBC (08/17/2025 5:43 AM EST) WBC 8.5 3.8 - 10.8 10E3/uL 08/17/2025 6:27 AM EST [facility] RBC 5.05 3.80 - 5.10 10E6/uL 08/17/2025 6:27 AM EST [facility] Hemoglobin 15.9(H) 11.7 - 15.5 g/dL 08/17/2025 6:27 AM EST [facility] Hematocrit 46.8(H) 35.0 - 45.0 % 08/17/2025 6:27 AM EST [facility] MCV 92.6 80.0 - 100.0 fL 08/17/2025 6:27 AM EST [facility] MCH 31.5 27.0 - 33.0 pg 08/17/2025 6:27 AM EST [facility] MCHC 34.0 32.0 - 36.0 g/dL 08/17/2025 6:27 AM EST [facility] RDW 14.1 11.0 - 15.0 % 08/17/2025 6:27 AM EST [facility] Platelets 133(L) 140 - 400 10E3/uL 08/17/2025 6:27 AM EST [facility] MPV 8.7 7.5 - 11.5 fL 08/17/2025 6:27 AM EST [facility] Whole Blood 08/17/2025 5:43 AM EST 08/17/2025 6:18 AM EST [facility] Final Result Performing Organization Address City/[facility]/ZIP Co de Phone Number [facility] [address] * Magnesium (08/17/2025 5:43 AM EST) Magnesium 2.0 1.5 - 2.5 mg/dL 08/17/2025 7:11 AM EST [facility] Comment:HEMOLYSIS EVIDENT. R ESULTS MAY BE INFLUENCED. Plasma 08/17/2025 5:43 AM EST 08/17/2025 6:18 AM EST [employer] LAB BLOOD ORDERABLES Final Result [facility] [address] * (ABNORMAL) Renal Function Panel w/EGFR (08/17/2025 5:43 AM EST) Sodium 138 133 - 146 mmol/L 08/17/2025 7:11 AM [facility] Potassium 3.9 3.5 - 5.3 mmol/L 08/17/2025 7:11 AM [facility] Comment:Hemolysis Present: R esults may be influenced artificially. Recommend recollection as clinically indicated. Chloride 100 98 - 110 mmol/L 08/17/2025 7:11 AM EST [facility] CO2 27 21 - 33 mmol/L 08/17/2025 7:11 AM [facility] Comment:High lactate dehydro genase concentrations in patient samples may cause falsely increased bicarbonate results. If markedly elevated LDH is observed or suspected, please assess results in conjunction with patient`s clinical presentation. In cases of discrepant results, consider evaluating CO2 in with a blood gas order. Anion Gap 11 3 - 16 mmol/L 08/17/2025 7:11 AM [facility] BUN 9 7 - 25 mg/dL 08/17/2025 7:11 AM [facility] Creatinine 0.44(L) 0.60 - 1.30 mg/dL 08/17/2025 7:11 AM [facility] Glucose 89 70 - 100 mg/dL 08/17/2025 7:11 AM [facility] Calcium 8.6 8.6 - 10.3 mg/dL 08/17/2025 7:11 AM [facility] Phosphorus 4.8(H) 2.1 - 4.7 mg/dL 08/17/2025 7:11 AM [facility] Comment:HEMOLYSIS EVIDENT. R ESULTS MAY BE INFLUENCED. Albumin 3.6 3.5 - 5.7 g/dL 08/17/2025 7:11 AM [facility] Osmolality, Calculated 284 278 - 305 mOsm/kg 08/17/2025 7:11 AM [facility] EGFR >90 08/17/2025 7:11 AM [facility] Comment: As of 2021, the estimated [...] BLOOD ORDERABLES Final Result Performing Organization Address City/[facility]/ZIP Co de Phone Number [facility] [address] [facility]. [address] * (ABNORMAL) aPTT-Heparin (08/17/2025 5:43 AM EST) hPTT 79.6(L) 90.0 - 120.0 seconds 08/17/2025 6:34 AM EST [facility] Plasma 08/17/2025 5:43 AM EST 08/17/2025 6:18 AM EST us Ashwin Puga MD LAB BLOOD ORDERABLES Final Result [facility] [address] [facility]. [address] * FALGUNI Rhythm Strip - Scan (08/16/2025 8:54 PM EST) us Scanning [employer] SCAN DOCS - NO RESULTS Final Res ult * ECHO COMPLETE (08/16/2025 4:00 PM EST) Anatomical Region Laterality Modality Chest Ultrasound 08/16/2025 3:42 PM EST Narrative 08/16/2025 4:41 PM EST * [facility]* [address] [place] [address] Transthoracic Echocardiogram Patient: Nellie Alves Room: 6354 Height: 60in MR Number: [id number] : 1965 Weight: 151lb Account: [id number] Gender: F BP: 100 / 68 Study Date: 08/16/2025 Age: 59 BSA: 1.66m^2 Referring physician: Chato Boone Interpreting physician: Indra Mariscal PERFORMING Indra Mariscal GLASS SCULLION Christianne Becker ORDERING Chato Boone REFERRING Chato Boone ATTENDING Liza Forrest MD ADMITTING Liza Forrest MD Procedure:TRANSTHORACIC ECHO (TTE) Order: Accession COMPLETE Number:[id number] Indications: Valve disorders/disease -aortic stenosis (I35.0). PMH: [...] range. Reviewed and confirmed by Indra Mariscal [id number] Procedure Note Rosendo Mariscal MD - 08/16/2025 * [facility]* [address] [place] [address] Transthoracic Echocardiogram Patient: Nellie Alves Room: 6354 Height: 60in MR Number: [id number] : 1965 Weight: 151lb Account: [id number] Gender: F BP: 100 / 68 Study Date: 08/16/2025 Age: 59 BSA: 1.66m^2 Referring physician: Chato Boone Interpreting physician: Indra Mariscal PERFORMING Indra Mariscal [employer] Christianne Becker ORDERING Chato Boone REFERRING Chato Boone ATTENDING Liza Forrest MD ADMITTING Liza Forrest MD Procedure:TRANSTHORACIC ECHO (TTE) Order: Accession COMPLETE Number:[id number] Indications: Valve disorders/disease -aortic stenosis (I35.0). PMH: [...] range. Reviewed and confirmed by Indra Mariscal [id number] Chato Boone MD CV ECHO ORDERABLES Final Result * C-Reactive Protein (08/16/2025 10:53 AM EST) [facility] CRP 3.2 1.0 - 10.0 mg/L 08/16/2025 12:58 PM EST [facility] Plasma 08/16/2025 10:5 3 AM EST 08/16/2025 12:16 PM [address] Chely Andrews [facility] BLOOD ORDERABLES Final Result Performing Organization Address City/[facility]/ZIP Co de Phone Number [facility] [address] [place] [address] * Sed Rate (08/16/2025 10:53 AM EST) [facility] Sed Rate 16 0 - 30 mm/hr 08/16/2025 12:39 PM EST [facility] Whole Blood 08/16/2025 10:5 3 AM EST 08/16/2025 12:16 PM [address] Chely Andrews [facility] BLOOD ORDERABLES Final Result Performing Organization Address City/[facility]/ZIP Co de Phone Number [facility] [address] [place] [address] * Influenza A and B, COVID, RSV Combination Assay, MARIELENA (08/16/2025 10:02 AM EST) [facility] Influenza A Negative Negative 08/16/2025 11:43 AM EST [facility] Influenza B Negative Negative 08/16/2025 11:43 AM EST [facility] RSV Negative Negative 08/16/2025 11:43 AM EST [facility] SARS-CoV-2 Negative Negative,Not Detected 08/16/2025 11:43 AM EST [facility] Comment:This is an FDA-appro justine amplified nucleic acid assay performed by real- time PCR. Nasopharyngeal Swab NASOPHARYNGEAL STRUCTURE / Unknown 08/16/2025 10:02 AM EST 08/16/2025 10:56 AM EST us Chely Andrews DO BODY FLUIDS AND STOOL S ORDERABLES Final Result Performing Organization Address City/[facility]/ZIP Co de Phone Number [facility] [address] * FALGUNI Rhythm Strip - Scan (08/16/2025 9:40 AM EST) us Scanning [employer] SCAN DOCS - NO RESULTS Final Res ult * (ABNORMAL) B Natriuretic Peptide (08/16/2025 6:58 AM EST) BNP 475(H) 0 - 100 pg/mL 08/16/2025 8:54 AM EST [facility] Comment: BNP may be increased in the presence of sacubitril/valsartan (Entresto). Please interpret accordingly. Plasma 08/16/2025 6:58 AM EST 08/16/2025 7:20 AM EST Narrative [facility] - 08/16/2025 8:54 AM EST The presence of high concentrations of biotin may cause falsely lowered BNP results. Biotin interference may be seen if an individual is taking >5 mg biotin per day. Interpret BNP results in the context of the patient's clinical presentation. us Liza Forrest MD LAB BLOOD ORDERABLES Final Re sult [facility] [address] [facility]. [address] * aPTT-Heparin (08/16/2025 6:58 AM EST) hPTT 100.0 90.0 - 120.0 seconds 08/16/2025 7:51 AM EST [facility] Plasma 08/16/2025 6:5 8 AM EST 08/16/2025 7:20 AM EST Liza Forrest MD LAB BLOOD ORDERABLES Final Re sult Performing Organization Address City/[facility]/ZIP Co de Phone Number [facility] [address] * Lactic Acid (08/16/2025 6:58 AM EST) Lactate 0.8 0.5 - 2.2 mmol/L 08/16/2025 7:53 AM EST [facility] Plasma 08/16/2025 6:58 AM EST 08/16/2025 7:20 AM EST Chato Boone MD LAB BLOOD ORDERABLES Giuliana l Result Performing Organization Address [facility] Co de Phone Number [facility] [address] * (ABNORMAL) Renal Function Panel w/EGFR (08/16/2025 6:58 AM EST) Sodium 139 133 - 146 mmol/L 08/16/2025 7:55 AM EST [facility] Potassium 3.7 3.5 - 5.3 mmol/L 08/16/2025 7:55 AM EST [facility] Chloride 101 98 - 110 mmol/L 08/16/2025 7:55 AM EST [facility] CO2 31 21 - 33 mmol/L 08/16/2025 7:55 AM EST [facility] Comment:High lactate dehydro genase concentrations in patient samples may cause falsely increased bicarbonate results. If markedly elevated LDH is observed or suspected, please assess results in conjunction with patient`s clinical presentation. In cases of discrepant results, consider evaluating CO2 in with a blood gas order. Anion Gap 7 3 - 16 mmol/L 08/16/2025 7:55 AM EST [facility] BUN 6(L) 7 - 25 mg/dL 08/16/2025 7:55 AM EST [facility] Creatinine 0.32(L) 0.60 - 1.30 mg/dL 08/16/2025 7:55 AM EST [facility] Glucose 101(H) 70 - 100 mg/dL 08/16/2025 7:55 AM EST [facility] Calcium 8.4(L) 8.6 - 10.3 mg/dL 08/16/2025 7:55 AM EST [facility] Phosphorus 3.1 2.1 - 4.7 mg/dL 08/16/2025 7:55 AM EST [facility] Albumin 3.5 3.5 - 5.7 g/dL 08/16/2025 7:55 AM EST [facility] Osmolality, Calculated 286 278 - 305 mOsm/kg 08/16/2025 7:55 AM EST [facility] EGFR >90 08/16/2025 7:55 AM EST [facility] Comment: As of 2021, the estimated [...] Chato Boone MD LAB BLOOD ORDERABLES Giuliana mora Result [facility] [address] [place] [address], [facility] * Magnesium (08/16/2025 6:58 AM EST) Magnesium 2.2 1.5 - 2.5 mg/dL 08/16/2025 7:55 AM EST [facility] Plasma 08/16/2025 6:58 AM EST 08/16/2025 7:20 AM EST Chato Boone MD LAB BLOOD ORDERABLES Giuliana mora Result [facility] [address] [place] [address], [facility] * (ABNORMAL) CBC (08/16/2025 6:58 AM EST) WBC 13.7(H) 3.8 - 10.8 10E3/uL 08/16/2025 7:38 AM EST [facility] RBC 4.89 3.80 - 5.10 10E6/uL 08/16/2025 7:38 AM EST [facility] Hemoglobin 15.2 11.7 - 15.5 g/dL 08/16/2025 7:38 AM [facility] Hematocrit 44.6 35.0 - 45.0 % 08/16/2025 7:38 AM EST [facility] MCV 91.1 80.0 - 100.0 fL 08/16/2025 7:38 AM EST [facility] MCH 31.2 27.0 - 33.0 pg 08/16/2025 7:38 AM [facility] MCHC 34.2 32.0 - 36.0 g/dL 08/16/2025 7:38 AM [facility] RDW 14.0 11.0 - 15.0 % 08/16/2025 7:38 AM [facility] Platelets 148 140 - 400 10E3/uL 08/16/2025 7:38 AM EST [facility] Comment:Specimen checked for clots. None detected. MPV 8.0 7.5 - 11.5 fL 08/16/2025 7:38 AM EST [facility] Whole Blood 08/16/2025 6:58 AM EST 08/16/2025 7:20 AM EST Chato Boone MD LAB BLOOD ORDERABLES Giuliana l Result Performing Organization Address City/[facility]/ZIP Co de Phone Number [facility] [address] [facility]. [address] * FALGUNI Rhythm Strip - Scan (08/16/2025 3:17 AM EST) us Scanning Uchhim SCAN DOCS - NO RESULTS Final Res ult * aPTT-Heparin (08/16/2025 12:27 AM EST) hPTT 116.7 90.0 - 120.0 seconds 08/16/2025 1:00 AM EST [facility] Plasma 08/16/2025 12:2 7 AM EST 08/16/2025 12:36 AM EST Liza Forrest MD LAB BLOOD ORDERABLES Final Re sult Performing Organization Address [facility] Co de Phone Number [facility] [address] [facility]. [address] * Blood culture-Peripheral (Blood) (08/15/2025 8:02 PM EST) Culture Result No Growth After 5 Days [facility] Blood BLOOD SPECIMEN / Unknown 08/15/2025 8:02 PM EST 08/15/2025 8:23 PM EST Narrative [facility] - 08/20/2025 8:33 PM EST Suboptimal volume of blood received. Interpret results with caution. Chato Boone MD MICROBIOLOGY - GENERAL OR DERABLES Final Result [facility] [address] [place] [facility]. [address] * Blood culture-Peripheral (Blood) (08/15/2025 8:02 PM EST) Culture Result No Growth After 5 Days [facility] Blood BLOOD SPECIMEN / Unknown 08/15/2025 8:02 PM EST 08/15/2025 8:23 PM EST Narrative [facility] - 08/20/2025 8:35 PM EST Suboptimal volume of blood received. Interpret results with caution. Chato Boone MD MICROBIOLOGY - GENERAL OR DERABLES Final Result [facility] [address] [place] [address], [facility] * (ABNORMAL) Urinalysis - Macroscopic w/ Reflex to Microscopic (08/15/2025 6:42 PM EST) Color, UA Straw Yellow,Straw 08/15/2025 7:03 PM EST [facility] Clarity, UA Clear Clear 08/15/2025 7:03 PM EST [facility] Specific [place], UA >1.035(H) 1.005 - 1.035 08/15/2025 7:03 PM EST [facility] pH, UA 6.5 5.0 - 8.0 08/15/2025 7:03 PM EST [facility] Protein, UA Negative Negative mg/dL 08/15/2025 7:03 PM EST [facility] Glucose, UA Negative Negative mg/dL 08/15/2025 7:03 PM EST [facility] Ketones, UA Negative Negative mg/dL 08/15/2025 7:03 PM EST [facility] Bilirubin, UA Negative Negative 08/15/2025 7:03 PM EST [facility] Blood, UA Negative Negative 08/15/2025 7:03 PM EST [facility] Nitrite, UA Negative Negative 08/15/2025 7:03 PM EST [facility] Urobilinogen, UA <2.0 0.2 - 1.9 mg/dL 08/15/2025 7:03 PM EST [facility] Leukocyte Esterase, UA Negative Negative 08/15/2025 7:03 PM EST [facility] Urine 08/15/2025 6:42 PM EST 08/15/2025 6:54 PM EST Narrative [facility] - 08/15/2025 7:03 PM EST Microscopic testing is not performed when the dipstick is negative for blood, leukocyte, protein and nitrite. Luis Alfredo Dodd MD URINE ORDERABLES Final Result Performing Organization Address City/[facility]/ZIP Co de Phone Number [facility] [address] * (ABNORMAL) Lactic acid, venous whole blood (08/15/2025 6:28 PM EST) Lactate, Endy 2.5(H) 0.5 - 1.6 mmol/L 08/15/2025 6:35 PM EST [facility] Blood, Venous 08/15/2025 6:2 8 PM EST 08/15/2025 6:32 PM EST Luis Alfredo Dodd MD LAB BLOOD ORDERABLES Final Resul t Performing Organization Address [facility] Co de Phone Number [facility] [address] * (ABNORMAL) High Sensitivity Troponin (08/15/2025 6:28 PM EST) High Sensitivity Troponin 17(H) 0 - 14 ng/L 08/15/2025 7:07 PM EST [facility] Serum 08/15/2025 6:28 PM EST 08/15/2025 6:32 PM EST Luis Alfredo Dodd MD LAB BLOOD ORDERABLES Final Resul t Performing Organization Address City/[facility]/ZIP Co de Phone Number [facility] [address] * (ABNORMAL) CBC (08/15/2025 6:28 PM EST) WBC 5.4 3.8 - 10.8 10E3/uL 08/15/2025 6:46 PM EST [facility] RBC 5.11(H) 3.80 - 5.10 10E6/uL 08/15/2025 6:46 PM EST [facility] Hemoglobin 16.3(H) 11.7 - 15.5 g/dL 08/15/2025 6:46 PM EST [facility] Hematocrit 46.8(H) 35.0 - 45.0 % 08/15/2025 6:46 PM EST [facility] MCV 91.6 80.0 - 100.0 fL 08/15/2025 6:46 PM EST [facility] MCH 31.9 27.0 - 33.0 pg 08/15/2025 6:46 PM EST [facility] MCHC 34.9 32.0 - 36.0 g/dL 08/15/2025 6:46 PM EST [facility] RDW 14.3 11.0 - 15.0 % 08/15/2025 6:46 PM EST [facility] Platelets 156 140 - 400 10E3/uL 08/15/2025 6:46 PM EST [facility] MPV 7.4(L) 7.5 - 11.5 fL 08/15/2025 6:46 PM EST [facility] Whole Blood 08/15/2025 6:28 PM EST 08/15/2025 6:37 PM EST Luis Alfredo Dodd MD LAB BLOOD ORDERABLES Final Resul t [facility] [address] * APTT, No Anticoagulant (08/15/2025 6:28 PM EST) aPTT 26.0 25.5 - 35.0 seconds 08/15/2025 6:49 PM EST [facility] Plasma 08/15/2025 6:28 PM EST 08/15/2025 6:37 PM EST Luis Alfredo Dodd MD LAB BLOOD ORDERABLES Final Resul t [facility] [address] [facility]. [address] * Protime-INR (08/15/2025 6:28 PM EST) Protime 13.3 12.1 - 15.1 seconds 08/15/2025 6:48 PM EST [facility] INR 1.0 0.9 - 1.1 08/15/2025 6:48 PM EST [facility] Comment: RECOMMENDED THERAPEUTIC RANGES USING INR : Stable oral anticoagulant therapy: 2.0 - 3.0 Mechanical prosthetic heart valve: 2.5 - 3.5 Recurrent acute myocardial infarction: 2.5 - 3.5 Plasma 08/15/2025 6:28 PM EST 08/15/2025 6:37 PM EST us Luis Alfredo Dodd MD LAB BLOOD ORDERABLES Final Resul t [facility] [address] [facility] [place] [address], [facility] * CT Angio Abd-Pelvis W and or [...] follow-up CT in one year. Imaging Follow-up #[id number]#: Recommend CT of the Abdomen with contrast [...] follow-up CT in one year. Imaging Follow-up #[id number]#: Recommend CT of the Abdomen with contrast in 1year. Approved by Angelica Mcguire DO on 08/15/2025 7:33 PM EST I have personally reviewed the images and I agree with this report. Report Verified by: Mynor Genao MD at 08/15/2025 7:39 PM EST us Amaris Mary MD IMG CT ORDERABLES Giuliana l Result * CT Angio Chest W and [...] HEART: The heart is normal in size. [place] coronary artery atherosclerotic disease with evidence of [...] HEART: The heart is normal in size. [place] coronary artery atheroscleroticdisease with evidence of prior [...] - 35.0 seconds 08/15/2025 5:16 PM EST [facility] Plasma 08/15/2025 4:21 PM EST 08/15/2025 5:01 PM EST Luis Alfredo Dodd MD LAB BLOOD ORDERABLES Final Resul t [facility] [address] * INR - Protime (08/15/2025 4:21 PM EST) Protime 13.2 12.1 - 15.1 seconds 08/15/2025 5:16 PM EST [facility] INR 1.0 0.9 - 1.1 08/15/2025 5:16 PM EST [facility] Comment: RECOMMENDED THERAPEUTIC RANGES USING INR : Stable oral anticoagulant therapy: 2.0 - 3.0 Mechanical prosthetic heart valve: 2.5 - 3.5 Recurrent acute myocardial infarction: 2.5 - 3.5 Plasma 08/15/2025 4:21 PM EST 08/15/2025 5:01 PM EST Luis Alfredo Dodd MD LAB BLOOD ORDERABLES Final Resul t [facility] [address] [place] [address], [facility] * (ABNORMAL) Hepatic Function Panel (08/15/2025 4:21 PM EST) Total Bilirubin 0.6 0.0 - 1.5 mg/dL 08/15/2025 4:59 PM EST [facility] Bilirubin, Direct 0.1 0.0 - 0.4 mg/dL 08/15/2025 4:59 PM EST [facility] Comment:HEMOLYSIS EVIDENT. D IRECT BILIRUBIN CONCENTRATIONS MAY BE FALSELY DECREASED IN THE PRESENCE OF HEMOLYSIS. INTERPRET WITH CAUTION. AST 77(H) 13 - 39 U/L 08/15/2025 4:59 PM EST [facility] ALT 74(H) 7 - 52 U/L 08/15/2025 4:59 PM EST [facility] Alkaline Phosphatase 127(H) 36 - 125 U/L 08/15/2025 4:59 PM EST [facility] Total Protein 7.3 6.4 - 8.9 g/dL 08/15/2025 4:59 PM EST [facility] Albumin 3.6 3.5 - 5.7 g/dL 08/15/2025 4:59 PM EST [facility] Bilirubin, Indirect 0.5 0.0 - 1.1 mg/dL 08/15/2025 4:59 PM EST [facility] Plasma 08/15/2025 4:21 PM EST 08/15/2025 4:30 PM EST Luis Alfredo Dodd MD LAB BLOOD ORDERABLES Final Resul t [facility] [address] [place] [address], [facility] * (ABNORMAL) Lactic acid, venous, whole blood (08/15/2025 4:21 PM EST) Lactate, Endy 4.2(H) 0.5 - 1.6 mmol/L 08/15/2025 4:36 PM EST [facility] Blood, Venous 08/15/2025 4:2 1 PM EST 08/15/2025 4:30 PM EST Luis Alfredo Dodd MD LAB BLOOD ORDERABLES Final Resul t [facility] [address] [facility]. [address] * Antibody Screen (08/15/2025 4:21 PM EST) Antibody Screen Negative 08/15/2025 5:45 PM EST [facility] Blood 08/15/2025 4:21 PM EST 08/15/2025 5:05 PM EST Narrative [facility] - 08/15/2025 5:52 PM EST Testing performed by [facility] Transfusion Service Luis Alfredo Dodd MD BLOOD BANK TEST ORDERABLES Final Result Performing Organization Address City/[facility]/ZIP Co de Phone Number [facility] [address] [facility]. [address] * ABO/Rh (08/15/2025 4:21 PM EST) ABO Grouping AB 08/15/2025 5:29 PM EST [facility] Rh Type Positive 08/15/2025 5:29 PM EST [facility] Blood 08/15/2025 4:21 PM EST 08/15/2025 5:05 PM EST Luis Alfredo Dodd MD BLOOD BANK TEST ORDERABLES Final Result [facility] [address] * (ABNORMAL) High Sensitivity Troponin (08/15/2025 4:21 PM EST) High Sensitivity Troponin 19(H) 0 - 14 ng/L 08/15/2025 5:04 PM EST [facility] Serum 08/15/2025 4:21 PM EST 08/15/2025 4:30 PM EST Luis Alfredo Dodd MD LAB BLOOD ORDERABLES Final Resul t [facility] [address] [facility] [place] [address], [facility] * (ABNORMAL) Differential (08/15/2025 4:21 PM EST) Neutrophils Relative 91.4(H) 40.0 - 80.0 % 08/15/2025 5:15 PM EST [facility] Lymphocytes Relative 7.0(L) 15.0 - 45.0 % 08/15/2025 5:15 PM EST [facility] Monocytes Relative 1.0 0.0 - 12.0 % 08/15/2025 5:15 PM EST [facility] Eosinophils Relative 0.1 0.0 - 8.0 % 08/15/2025 5:15 PM EST [facility] Basophils Relative 0.5 0.0 - 1.0 % 08/15/2025 5:15 PM EST [facility] nRBC 0 0 - 0 /100 WBC 08/15/2025 5:15 PM EST [facility] Neutrophils Absolute 5,758 1,520 - 8,640 /uL 08/15/2025 5:15 PM EST [facility] Lymphocytes Absolute 441(L) 570 - 4,860 /uL 08/15/2025 5:15 PM EST [facility] Monocytes Absolute 63 0 - 1,296 /uL 08/15/2025 5:15 PM EST [facility] Eosinophils Absolute 6 0 - 864 /uL 08/15/2025 5:15 PM EST [facility] Basophils Absolute 32 0 - 108 /uL 08/15/2025 5:15 PM EST [facility] Whole Blood 08/15/2025 4:21 PM EST 08/15/2025 5:01 PM EST Luis Alfredo Dodd MD LAB BLOOD ORDERABLES Final Resul t [facility] [address] [facility] [place] [address], [facility] * (ABNORMAL) CBC (08/15/2025 4:21 PM EST) WBC 6.3 3.8 - 10.8 10E3/uL 08/15/2025 5:15 PM EST [facility] RBC 5.32(H) 3.80 - 5.10 10E6/uL 08/15/2025 5:15 PM EST [facility] Hemoglobin 17.1(H) 11.7 - 15.5 g/dL 08/15/2025 5:15 PM EST [facility] Hematocrit 49.1(H) 35.0 - 45.0 % 08/15/2025 5:15 PM EST [facility] MCV 92.2 80.0 - 100.0 fL 08/15/2025 5:15 PM EST [facility] MCH 32.1 27.0 - 33.0 pg 08/15/2025 5:15 PM EST [facility] MCHC 34.8 32.0 - 36.0 g/dL 08/15/2025 5:15 PM EST [facility] RDW 14.0 11.0 - 15.0 % 08/15/2025 5:15 PM EST [facility] Platelets 156 140 - 400 10E3/uL 08/15/2025 5:15 PM EST [facility] MPV 7.7 7.5 - 11.5 fL 08/15/2025 5:15 PM EST [facility] Whole Blood 08/15/2025 4:21 PM EST 08/15/2025 5:01 PM EST us Luis Alfredo Dodd MD LAB BLOOD ORDERABLES Final Resul t [facility] [address] * ED HCV Ab Reflex To HCV Quant (08/15/2025 4:21 PM EST) HCV Ab Nonreactive Nonreactive 08/15/2025 6:58 PM EST [facility] Comment:Health Department no tified in accordance with reportable infectious disease guidelines. HCVAB Number 0.03 0.00 - 0.79 S/CO 08/15/2025 6:58 PM EST [facility] Serum 08/15/2025 4:21 PM EST 08/15/2025 5:01 PM EST us Luis Alfredo Dodd MD LAB BLOOD ORDERABLES Final Resul t [facility] [address] [place] [address], [facility] * (ABNORMAL) Basic metabolic panel (08/15/2025 4:21 PM EST) Sodium 132(L) 133 - 146 mmol/L 08/15/2025 4:59 PM EST [facility] Potassium 4.6 3.5 - 5.3 mmol/L 08/15/2025 4:59 PM EST [facility] Comment:Hemolysis Present: R esults may be influenced artificially. Recommend recollection as clinically indicated. Chloride 98 98 - 110 mmol/L 08/15/2025 4:59 PM EST [facility] CO2 20(L) 21 - 33 mmol/L 08/15/2025 4:59 PM EST [facility] Comment:High lactate dehydro genase concentrations in patient samples may cause falsely increased bicarbonate results. If markedly elevated LDH is observed or suspected, please assess results in conjunction with patient`s clinical presentation. In cases of discrepant results, consider evaluating CO2 in with a blood gas order. Anion Gap 14 3 - 16 mmol/L 08/15/2025 4:59 PM EST [facility] BUN 6(L) 7 - 25 mg/dL 08/15/2025 4:59 PM EST [facility] Creatinine 0.45(L) 0.60 - 1.30 mg/dL 08/15/2025 4:59 PM EST [facility] Glucose 198(H) 70 - 100 mg/dL 08/15/2025 4:59 PM EST [facility] Calcium 8.6 8.6 - 10.3 mg/dL 08/15/2025 4:59 PM EST [facility] Osmolality, Calculated 277(L) 278 - 305 mOsm/kg 08/15/2025 4:59 PM EST [facility] EGFR >90 08/15/2025 4:59 PM EST [facility] Comment: As of 2021, the estimated [...] MD LAB BLOOD ORDERABLES Final Resul t [facility] [address] * ED ECG 12-Lead (MUSE) (08/15/2025 4:04 PM EST) 08/15/2025 4:04 PM EST Narrative MUSE - 08/16/2025 8:28 AM EST Ventricular Rate: 85 BPM Atrial Rate: 85 BPM P-R Interval: 156 ms QRS Duration: 90 ms QT: 424 ms QTc: 504 ms P [place]: 30 degrees R [place]: -29 degrees T [place]: 26 degrees Diagnosis Line: INTERPRETATION NOT AVAILABLE--ECG READ IN ER Confirmed by PHYSICIAN, ER ([id number]), editor continuity and script Crystal Linn ([id number]) on 08/16/2025 8:28:38 AM us Amaris Mary MD ECG ORDERABLES Final Result MUSE documented in this encounter Visit Diagnoses Diagnosis Thrombus- Primary Embolism and thrombosis of unspecified site S/P TAVR (transcatheter aortic valve replacement) Acute on chronic diastolic heart failure (CMS-HCC) Acute on chronic diastolic heart failure Zenker's (hypopharyngeal) diverticulum Diverticulum of esophagus, acquired Abnormal CT scan of heart S/P TAVR (transcatheter aortic valve replacement) Aortic stenosis Aortic valve disorders Filling defect on imaging study Lightheadedness Dizziness and giddiness Shortness of breath COPD (chronic obstructive pulmonary disease) ([facility]) Chronic airway obstruction, not elsewhere classified CAD (coronary artery disease) Coronary atherosclerosis of unspecified type of vessel, [place] or graft Status post coronary artery stent placement Postsurgical percutaneous transluminal coronary angioplasty status GERD (gastroesophageal reflux disease) Esophageal reflux Allergies Aortic aneurysm ([facility]) Aortic aneurysm of unspecified site without mention [...] cardiology workup. Orders should be received from [facility] by morning. BNP 475 on 08/16/25; now [...] follow-up scheduled for 08/26 at 9:15am at [facility]. They will connect pt to coumadin clinic [...] cardiology workup. Orders should be received from [facility] by morning. BNP 475 on 08/16/25; now [...] follow-up scheduled for 08/26 at 9:15am at [facility]. They will connect pt to coumadin clinic [...] cardiology workup. Orders should be received from [facility] by morning. BNP 475 on 08/16/25; now [...] follow-up scheduled for 08/26 at 9:15am at [facility]. They will connect pt to coumadin clinic [...] ESTAssociated Problem(s): COPD (chronic obstructive pulmonary disease) ([facility]) Possibly having a COPDe, will consider starting abx / pred once fluid status is better determined. - Goal O2 sat 88-92% - Continue anoroellipta/asmanex - Albuterol PRN - acapella, incentive spirometry ordered - walk test today * Assessment & Plan Note - Bev Sierra MD - 08/21/2025 6:27 AM ESTAssociated Problem(s): CAD (coronary artery disease) History of stent placement post [place] in 2022, troponins here 19->17. Lactate 4.2- >2.5, possiblyfrom decreased perfusion after being on esmolol and diltiazem drip. - Continue ASA, statin - Lipid panel; LDL 81, HDL 82, Triglycerides 124 * Assessment & Plan Note - Bev Sierra MD - 08/21/2025 6:27 AM ESTAssociated Problem(s): Status post coronary artery stent placement History of stent placement post [place] in 2022, troponins here 19->17. Lactate 4.2- >2.5, possiblyfrom decreased perfusion after being on esmolol and diltiazem drip. - Continue ASA, statin - Lipid panel; LDL 81, HDL 82, Triglycerides 124 * Assessment & Plan Note - Bev Sierra MD - 08/21/2025 6:27 AM ESTAssociated Problem(s): Aortic aneurysm ([facility]) Transferred to [facility] for concern of aortic dissection, was sent [...] cardiology workup. Orders should be received from [facility] by morning. BNP 475 on 08/16/25; now [...] follow-up scheduled for 08/26 at 9:15am at [facility]. They will connect pt to coumadin clinic at this visit. - Plan for OP PET scan to r/o valve uptake * Assessment & Plan Note - Bev Sierra MD - 08/20/2025 2:46 PM ESTAssociated Problem(s): COPD (chronic obstructive pulmonary disease) ([facility]) Possibly having a COPDe, will consider starting [...] cardiology workup. Orders should be received from [facility] by morning. BNP 475 on 08/16/25; now [...] follow-up scheduled for 08/26 at 9:15am at [facility]. They will connect pt to coumadin clinic [...] cardiology workup. Orders should be received from [facility] by morning. BNP 475 on 08/16/25; now [...] follow-up scheduled for 08/26 at 9:15am at [facility]. They will connect pt to coumadin clinic [...] artery disease) History of stent placement post [place] in 2022, troponins here 19->17. Lactate 4.2- >2.5, possiblyfrom decreased perfusion after being on esmolol and diltiazem drip. - Continue ASA, statin - Lipid panel; LDL 81, HDL 82, Triglycerides 124 * Assessment & Plan Note - Bev Sierra MD - 08/20/2025 6:31 AM ESTAssociated Problem(s): Status post coronary artery stent placement History of stent placement post [place] in 2022, troponins here 19->17. Lactate 4.2- >2.5, possiblyfrom decreased perfusion after being on esmolol and diltiazem drip. - Continue ASA, statin - Lipid panel; LDL 81, HDL 82, Triglycerides 124 * Assessment & Plan Note - Bev Sierra MD - 08/20/2025 6:31 AM ESTAssociated Problem(s): Aortic aneurysm ([facility]) Transferred to [facility] for concern of aortic dissection, was sent [...] cardiology workup. Orders should be received from [facility] by morning. BNP 475 on 08/16/25. - [...] cardiology workup. Orders should be received from [facility] by morning. BNP 475 on 08/16/25. - [...] cardiology workup. Orders should be received from [facility] by morning. BNP 475 on 08/16/25. - [...] Associated Problem(s): COPD (chronic obstructive pulmonary disease) ([facility]) Possibly having a COPDe, will consider starting abx / pred once fluid status is better determined. - Goal O2 sat 88-92% - Continue anoroellipta/asmanex - Albuterol PRN - acapella, incentive spirometry ordered * Assessment & Plan Note - Ashwin Puga MD - 08/19/2025 8:39 AM EST Associated Problem(s): CAD (coronary artery disease) History of stent placement post [place] in 2022, troponins here 19->17. Lactate 4.2- >2.5, possiblyfrom decreased perfusion after being on esmolol and diltiazem drip. - Continue ASA, statin - Lipid panel; LDL 81, HDL 82, Triglycerides 124 * Assessment & Plan Note - Ashwin Puga MD - 08/19/2025 8:39 AM EST Associated Problem(s): Status post coronary artery stent placement History of stent placement post NJ in 2022, troponins here 19->17. Lactate 4.2- >2.5, possiblyfrom decreased perfusion after being on esmolol and diltiazem drip. - Continue ASA, statin - Lipid panel; LDL 81, HDL 82, Triglycerides 124 * Assessment & Plan Note - Ashwin Puga MD - 08/19/2025 8:39 AM EST Associated Problem(s): Aortic aneurysm ([facility]) Transferred to [facility] for concern of aortic dissection, was sent [...] cardiology workup. Orders should be received from [facility] by morning. BNP 475 on 08/16/25. - [...] cardiology workup. Orders should be received from [facility] by morning. BNP 475 on 08/16/25. - [...] cardiology workup. Orders should be received from [facility] by morning. BNP 475 on 08/16/25. - [...] Associated Problem(s): COPD (chronic obstructive pulmonary disease) ([facility]) Possibly having a COPDe, will consider starting [...] artery disease) History of stent placement post NJ in 2022, troponins here 19->17. Lactate 4.2- >2.5, possiblyfrom decreased perfusion after being on esmolol and diltiazem drip. - Continue ASA, statin - Lipid panel; LDL 81, HDL 82, Triglycerides 124 * Assessment & Plan Note - Ashwin Puga MD - 08/18/2025 7:21 AM EST Associated Problem(s): Status post coronary artery stent placement History of stent placement post NJ in 2022, troponins here 19->17. Lactate 4.2- >2.5, possiblyfrom decreased perfusion after being on esmolol and diltiazem drip. - Continue ASA, statin - Lipid panel; LDL 81, HDL 82, Triglycerides 124 * Assessment & Plan Note - Ashwin Puga MD - 08/18/2025 7:21 AM EST Associated Problem(s): Aortic aneurysm ([facility]) Transferred to [facility] for concern of aortic dissection, was sent [...] PPI * Assessment & Plan Note - Ashiwn Puga MD - 08/18/2025 7:21 AM EST [...] cardiology workup. Orders should be received from [facility] by morning. BNP 475 on 08/16/25. - [...] cardiology workup. Orders should be received from [facility] by morning. BNP 475 on 08/16/25. - [...] cardiology workup. Orders should be received from [facility] by morning. BNP 475 on 08/16/25. - [...] Associated Problem(s): COPD (chronic obstructive pulmonary disease) ([facility]) Possibly having a COPDe, will consider starting abx / pred once fluid status is better determined. - Goal O2 sat 88-92% - Continue anoroellipta/asmanex - Albuterol PRN * Assessment & Plan Note - Ashwin Puga MD - 08/17/2025 9:18 AM EST Associated Problem(s): CAD (coronary artery disease) History of stent placement post NJ in 2022, troponins here 19->17. Lactate 4.2- >2.5, possiblyfrom decreased perfusion after being on esmolol and diltiazem drip. - Continue ASA, statin - Lipid panel; LDL 81, HDL 82, Triglycerides 124 * Assessment & Plan Note - Ashwin Puga MD - 08/17/2025 9:18 AM EST Associated Problem(s): Status post coronary artery stent placement History of stent placement post NJ in 2022, troponins here 19->17. Lactate 4.2- >2.5, possiblyfrom decreased perfusion after being on esmolol and diltiazem drip. - Continue ASA, statin - Lipid panel; LDL 81, HDL 82, Triglycerides 124 * Assessment & Plan Note - Ashwin Puga MD - 08/17/2025 9:18 AM EST Associated Problem(s): Aortic aneurysm ([facility]) Transferred to [facility] for concern of aortic dissection, was sent [...] 9:11 AM EST Associated Problem(s): Aortic aneurysm ([facility]) Transferred to [facility] for concern of aortic dissection, was sent [...] cardiology workup. Orders should be received from [facility] by morning. - TTE + FIDEL ordered; [...] cardiology workup. Orders should be received from [facility] by morning. - TTE + FIDEL ordered; [...] cardiology workup. Orders should be received from [facility] by morning. - TTE + FIDEL ordered; [...] Associated Problem(s): COPD (chronic obstructive pulmonary disease) ([facility]) Possibly having a COPDe, will consider starting abx / pred once fluid status is better determined. - Goal O2 sat 88-92% - Continue anoroellipta/asmanex - Albuterol PRN * Assessment & Plan Note - Ashwin Puga MD - 08/16/2025 9:11 AM EST Associated Problem(s): CAD (coronary artery disease) History of stent placement post NJ in 2022, troponins here 19->17. Lactate 4.2- >2.5, possiblyfrom decreased perfusion after being on esmolol and diltiazem drip. - Continue ASA, statin - Lipid panel; pending * Assessment & Plan Note - Ashwin Puga MD - 08/16/2025 9:11 AM EST Associated Problem(s): Status post coronary artery stent placement History of stent placement post NJ in 2022, troponins here 19->17. Lactate 4.2- [...] cardiology workup. Orders should be received from [facility] by morning. - TTE + FIDEL ordered; [...] cardiology workup. Orders should be received from [facility] by morning. - TTE + FIDEL ordered; [...] cardiology workup. Orders should be received from [facility] by morning. - TTE + FIDEL ordered; [...] Associated Problem(s): COPD (chronic obstructive pulmonary disease) ([facility]) - Goal O2 sat 88-92% - Continue anoroellipta/asmanex - Albuterol PRN * Assessment & Plan Note - Ashwin Puga MD - 08/15/2025 7:49 PM EST Associated Problem(s): CAD (coronary artery disease) History of stent placement post NJ in 2022, troponins here 19->17. Lactate 4.2- >2.5, possiblyfrom decreased perfusion after being on esmolol and diltiazem drip. - Continue ASA, statin * Assessment & Plan Note - Ashwin Puga MD - 08/15/2025 7:49 PM EST Associated Problem(s): Status post coronary artery stent placement History of stent placement post NJ in 2022, troponins here 19->17. Lactate 4.2- >2.5, possiblyfrom decreased perfusion after being on esmolol and diltiazem drip. - Continue ASA, statin * Assessment & Plan Note - Ashwin Puga MD - 08/15/2025 7:49 PM EST Associated Problem(s): GERD (gastroesophageal reflux disease) - continue PPI * Assessment & Plan Note - Ashwin Puag MD - 08/15/2025 7:49 PM EST Associated Problem(s): Allergies - continue certirizine * Assessment & Plan Note - Ashwin Puga MD - 08/15/2025 7:49 PM EST Associated Problem(s): Aortic aneurysm ([facility]) Transferred to [facility] for concern of aortic dissection, was sent [...] Intravenous, at 0-43.8 mL/hr, Continuous, Starting on Tue08/15/25 at 1637, CMU Telemetry Monitoring Required, do [...] 40 mg 40 mg, Intravenous, Once, On Tue08/17/25 at 0930, For 1 dose, Give doses [...] 08/15/2025 6:35 PM EST 6,000 Units heparin 45967 units in 0.45% NaCl 250 mL IV [...] Tue08/18/25 at 0930, For 1 dose New Bag 08/18/2025 10:50 AM EST 1 g 100 mL/hr magnesium sulfate in sterile water 50 mL IVPB 2 g 2 g, Intravenous, Administer over 120 Minutes, Once, On Tue08/20/25 at 0800, For 1 dose New Bag 08/20/2025 8:31 AM EST 2 g 25 [...] on Tue08/19/25 at 1115, For 1 dose Given 08/19/2025 10:59 AM EST 80 mLs OMNIPAQUE (iohexol) 350 mg iodine/mL 150 mL 150 mL, Intravenous, IMG once as needed, contrast, Starting on Tue08/15/25 at 1702, For 1 dose Given 08/15/2025 [...] Daily, First dose on Tue08/19/25 at 1000 Given 08/21/2025 8:24 AM EST [...] 10 mg, Oral, Daily, First dose on Tue08/15/25 at 1913, Therapeutic Interchange: levocetirizine (XYZAL) tablet 5 mg po DAILY = cetirizine (ZYRTEC) tablet 10 mg po DAILY 08 (Given - Provider: Belinda Roman RN) 819 (Given - Provider: Ian Varghese RN) 823 (Given - Provider: Evie Brown, DAYRON) enoxaparin (LOVENOX) syringe 60 mg/0.6 mL 60 mg (rounded from 68.9 mg = 1 mg/kg 68.9 kg), Subcutaneous, Every 12 hours, First dose on Tue08/20/25 at 2000, For patient weight range 30 - 129 kg (66 - 285 lbs). 2028 (Given - Provider: Katherine Caruso RN) 823 (Given - Provider: Evie Brown, DAYRON) magnesium sulfate in sterile water 50 mL IVPB 2 g (COMPLETED) 2 g, Intravenous, Administer over 120 Minutes, Once, On Tue08/20/25 at 0800, For 1 dose 0831 (New Bag - Provider: Ian Varghese RN) metoprolol tartrate (LOPRESSOR) tablet 25 mg (COMPLETED) 25 mg, Oral, Once, On Tue08/19/25 at 0930, For 1 dose 0927 (Given - Provider: Belinda Roman RN) metoprolol tartrate (LOPRESSOR) tablet 50 mg 50 mg, Oral, 2 times daily, First dose on Tue08/15/25 at 2100 0825 (Given - Provider: Belinda Roman RN)2048 (Given - Provider: Katherine Caruso, DAYRON) 08 (Given - Provider: Ian Varghese, DAYRON)2029 [...] ELLIPTA 1128 (Given - Provider: Saray Amor, CHEMISTRY TECHNICIAN) 0927 (Given - Provider: Mitch Yang, CHEMISTRY TECHNICIAN) 0810 (Given - Provider: Annamarie Obrien, PADILLA) pantoprazole (PROTONIX) EC tablet 40 mg 40 mg, Oral, Daily, First dose on Tue08/16/25 at 0900, Do Not Crush 0825 (Given - Provider: Belinda Roman, RN) 0820 (Given - Provider: Ian Varghese, DAYRON) 0824 (Given - Provider: Evie Brown, DAYRON) torsemide (DEMADEX) tablet 20 mg 20 mg, Oral, Daily, First dose on Tue08/19/25 at 1000 0927 (Given - Provider: Belinda Roman, RN) 0820 (Given - Provider: Ian Varghese, DAYRON) 0824 (Given - Provider: Evie Brown, DAYRON) traZODone (DESYREL) tablet 50 mg 50 mg, Oral, At Bedtime (2100), First dose (after last modification) on Tue08/15/25 at 2335 2049 (Given - Provider: Katherine Caruso RN) 2030 (Given - Provider: Katherine Caruso RN) umeclidinium-vilanteroL (ANORO ELLIPTA) 62.5-25 mcg/actuation powder for inhalation DsDv 1 puff(Linked Group 1) 1 puff, Inhalation, RT Daily, First dose on Tue08/15/25 at 1913, Administer 1 inhalation with 1 inhalation of mometasone (ASMANEX) 220 mcg to = 1 inhalation of TRELEGY ELLIPTA 1128 (Given - Provider: Saray Amor, CHEMISTRY TECHNICIAN) 09 (Given - Provider: Mitch Yang, CHEMISTRY TECHNICIAN) 0810 (Given - Provider: Annamarie Obrien, PADILLA) warfarin (COUMADIN/JANTOVEN) tablet 5 mg 5 mg, Oral, Daily17, First dose on Tue08/19/25 at 1700, INDICATION FOR ANTITHROMBOTIC THERAPY: LV thrombus, INR Goal: 2 - 3 1658 (Given - Provider: Belinda Roman, DAYRON) 1803 (Given - Provider: Ian Varghese RN) Continuous Medication Order 08/19/2025 08/20/2025 08/21/2025 heparin 77073 units in 0.45% NaCl 250 mL IV [...] Reeves RN)0900 (New Bag - Provider: Belinda Roman RN)1933 (Handoff - Provider: Belinda Roman RN) 0110 (New Bag - Provider: Katherine Caruso RN)0714 (Handoff - Provider: Katherine Caruso, DAYRON)1727 (New Bag - Provider: Ian Varghese, DAYRON)192 (Handoff - Provider: Ian Varghese, DAYRON)2019 (Stopped - Provider: Katherine Caruso RN) PRN [...] from all sources in 24 hours. albuterol (IYSPCNQKX-EDYIRK-MEGJOQCA) 90 mcg/actuation inhaler 2 puff 2 puff, Inhalation, RT every 6 hours PRN, Wheezing, Shortness of Breath, Starting on Sofía 08/15/25 at 1940, SHAKE WELL guaiFENesin (ROBITUSSIN) 100 mg/5 mL syrup 100 mg 100 mg, Oral, Every 4 hours PRN, Congestion, Starting on 08/18/25 at 0816 0831 (Given - Provider: Belinda Roman, RN)2048 (Given - Provider: Katherine Caruso, DAYRON) 09 (Given - Provider: Ian Varghese, RN)2128 (Given - Provider: Katherine Caruso, DAYRON) ipratropium-albuteroL (DUO-NEB) 0.5 mg-3 mg(2.5 mg base)/3 mL nebulizer solution 3 mL 3 mL, Nebulization, RT every 4 hours PRN, Wheezing, Starting on 08/16/25 at 0907 OMNIPAQUE (iohexol) 350 mg iodine/mL 100 mL (COMPLETED) 100 mL, Intravenous, IMG once as needed, contrast, Starting on 08/19/25 at 1115, For 1 dose 1059 (Given [...] = less than 36 seconds, Starting on Sofía 08/15/25 at 1852, [...] hPTT goal 90-120 seconds protocol And heparin 97299 units in 0.45% NaCl 250 mL IV [...] documented as of this encounter Care Teams Endoscopy Registered Nurse Relationship 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
--- OUTSIDE RECORDS SUMMARY | 2025-08-16 23:59 | XMS_ITS | Encounter Summary ---
Author Organization [facility] Address [address] [place] [address] Care Team Providers Care Manometer Technician Name Role Phone Pcp, No Primary Care Provider [phone] Source Comments This information has been disclosed [...] release of HIV test results or diagnoses. [id number] Health Encounter Details Date Type Department Care Team (Late st Contact Info) Description 08/16/2025 11:59 PM EST Anesthesia Event [facility] Electrophysiology Lab [address] [place] [phone] Albert Em MD [address] [place] [phone] Anesthesia Record Procedure Summary Procedure Name Responsible [...] any time in the past 12 m [facility], were you homeless or living in a snf (including now)? No 08/16/2025 Utilities Answer Date Recorded In the past 12 months has th e [employer], gas, oil, or water company threatened to [...] on filedocumented in this encounter Care Teams Manometer Technician Relationship 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
--- OUTSIDE RECORDS SUMMARY | 2025-08-23 12:52 | XMS_ITS | Encounter Summary ---
Author Organization [facility] Address [facility] [place] [place] [address] Care Team Providers Care Liquefied Petroleum Gasfitter Name Role Phone Pcp, No Primary Care Provider [phone] Source Comments This information has been disclosed [...] release of HIV test results or diagnoses. [id number] Health Encounter Details Date Type Department Care Team (Latest Contact Info) Description 08/15/2025 Travel Social History Tobacco Use Types Packs/Day Years Used Date Smoking Tobacco: Every Day Cigarettes Alcohol Use Standard Drinks/Week Comments Yes 3 (1 standard drink = 0.6 oz pur [...] time in the past 12 m [facility], were you homeless or living in a group home (including now)? No 08/16/2025 Utilities Answer Date [...] on filedocumented in this encounter Care Teams Liquefied Petroleum Gasfitter Relationship 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
--- OUTSIDE RECORDS SUMMARY | 2025-08-23 12:52 | XMS_ITS | Clinical Summary ---
Author Organization [facility] Address [address] [place] [address] Phone Care Team Providers Care Eligibility Technician Name Role Phone Sergio Hurtado MD Primary Care Provider [phone] Allergies Active Allergy Reactions Criticality Noted Date [...] Diagnosed Date Coronary artery disease invo lving [place] coronary artery of [place] heart without angina pectoris 04/15/2023 Abdominal aortic [...] Date Smoking Tobacco: Every Day Cigarettes 0.3 48 Started: 1977 Overall Financial Resource Strain (CARDIA) [...] age to complete this topic Insurance [facility] [id number] [facility] [place] [id number] [place] [id number] [facility] Advance Directives For more information, please contact: [phone] * Full Code (Latest Code Status on File) Date Activated Date Inactivated Comments 04/15/2023 12:50 AM 04/16/2023 9:26 PM Care Teams Eligibility Technician Relationship Specialty Start Date End Date Sergio Hurtado MD [address] [facility] [address] [place] [phone] PCP - General Family Medicine 04/14/23
--- OUTSIDE RECORDS SUMMARY | 2025-08-23 12:52 | XMS_ITS | Clinical Summary ---
Author Organization [facility] Address [address] [place] [address] Care Team Providers Care Network Control Operators Supervisor Name Role Phone Pcp, No Primary Care [...] infarction 2022 Recurrent syncope 05/26/2025 Hypokalemia 03/25/2023 Immunizations Immunization Administration Dates Next Due Pfizer-BioNTApplied Visual Sciences COVID-19 Vac cine ([place] Cap) 12+ years [...] drink first t ney in the morning (EYE-SENIOR FIRE PROTECTION ENGINEER) to steady your nerves or to [...] 2015 [facility]-Zoster Vaccines (1 of 2) 2015 GLK-WFVAE-12 Vaccine (3 - 2024- season) 2025 10/26/2021, 09/16/2021 [facility]-Influenza Vaccine (#1) 2025 [facility]-Diabetes: Hemoglobin A1C Discontinued 03/23/2023 [facility]-Obesity Intervention Completed 023, 05/18/2023 HPV Vaccines (No Doses Required) Completed [facility]-HIB Vaccines Aged Out No longer e [...] this topic Medical Devices Implanted Type Area Building Construction Superintendent Device Identifier Shelf Expiration Date Model / Serial / Lot Valve Evolut Pro Transaortic 26mm - [id number] Implanted:Qty: 1 on 03/31/2023 by Sergio Faith MD at [facility] [id number] 11/09/2023 EVPROPLU S26 US / [id number] / [id number] Procedures Procedure Name Priority Date/Time Associated Diagnosis [...] Adults <6.0% Children and Adolescents <7.5% Source: [place] [employer]. Standards of medical care in diabetes,2017. Diabetes Care.2017:40 (suppl 1):S1-S135. HbA1c assay performed by an ion-exchange chromatography method that is certified traceable to the DCCT. So Jeffries APRN LAB BLOOD ORDERABLES Final R esult [facility] [address] [place] [phone] from Last 3 Months or Most Recently Relevant to Health Maintenance Insurance [employer] Advance Directives * Full Code (Latest Code Status on File) Date Activated Date Inactivated Comments 03/31/2023 4:10 PM 04/01/2023 4:50 PM Question Answer Comments Patient has decision-making capacity? Yes * Full Code Date Activated Date Inactivated Comments 03/23/2023 5:20 PM 03/25/2023 1:24 PM Question Answer Comments Patient has decision-making capacity? Yes Care Teams Network Control Operators Supervisor Relationship Specialty Start Date End Date Pcp, Letty [address] [place] [address] PCP - General Family Medicine 03/24/22
--- OUTSIDE RECORDS SUMMARY | 2025-08-23 12:52 | XMS_ITS | Encounter Summary ---
Author Organization [facility] Address [address] [place] [id number] Care Team Providers Care Signal Worker Helper Name Role Phone Pcp, No Primary Care Provider Unavailabl e Reason for Visit * Reason Comments Med Refill Encounter Details Date Type Department Care Team ([facility] st Contact Info) Description 05/03/2024 Refill [facility] [place] [address], [address] [place] [address] Melva Modi PA [address] [place] [address] Social History Tobacco Use Types [...] drink first t ney in the morning (EYE-NET TRAINER) to steady your nerves or to get [...] documented as of this encounter Care Teams Signal Worker Helper Relationship Specialty Start Date End Date Pcp, [place] [address] PCP - General Family Medicine 03/24/22 documented as of this encounter
--- OUTSIDE RECORDS SUMMARY | 2025-08-23 12:52 | XMS_ITS | Encounter Summary ---
Author Organization [facility] Address [address] [place] [phone] Care Team Providers Care Veterinary Pharmacologist Name Role Phone Pcp, No Primary Care Provider Unavailabl e Reason for Visit * Reason Comments Med Refill Encounter Details Date Type Department Care Team ([facility] st Contact Info) Description 09/06/2023 Refill [facility] [place] [address] [facility] [address] [facility], [address] [place] [address] Melva Modi PA [address] [place] [address] Social History Tobacco Use Types [...] drink first t ney in the morning (EYE-MIRROR POLISHER) to steady your nerves or to get [...] documented as of this encounter Care Teams Veterinary Pharmacologist Relationship Specialty Start Date End Date Pcp, [place] [address] PCP - General Family Medicine 03/24/22 documented as of this encounter
--- OUTSIDE RECORDS SUMMARY | 2025-08-23 12:53 | XMS_ITS | Clinical Summary ---
Author Organization [facility] Address [facility] [place] [address] Care Team Providers Care Broomcorn Sorter Name Role Phone Pcp, No Primary Care Provider [phone] Source Comments This information has been disclosed to you from confidential records protectedfrom disclosure by state law. You shall make no further disclosure of thisinformation without the specific, written, and informed release of theindividual to whom it pertains, or as otherwise permitted by law. A generalauthorization for the release of medical or other information is not sufficientfor the purposes of therelease of HIV test results or diagnoses. [id number] Allergies Active Allergy Reactions Criticality Noted Date Comments Codeine Hives 08/15/2025 Medications VENTOLIN HFA 90 mcg/actuation inhaler Inhale 2 puffs into the lungs every 6 hours as needed for Wheezing or Shortness of Breath. Active aspirin 81 MG chewable tablet Chew 1 tablet (81 mg total) by mouth daily. Active atorvastatin (LIPITOR) 80 MG tablet Take 1 tablet (80 mg total) by mouth daily. Active fluticasone-u meclidin-laina nter (TRELEGY ELLIPTA) 100-62.5-25 mcg DsDv Inhale 1 puff into the lungs daily. Active levocetirizin e (XYZAL) 5 MG tablet Take 1 tablet (5 mg total) by mouth daily. 025 Active enoxaparin (LOVENOX) 60 mg/0.6 mL Syrg Inject 0.6 mLs (60 mg total) subcutaneously every 12 hours. 8.4 mL 1 5 11:22 AM EST 025 Active torsemide (DEMADEX) 20 MG tablet Take 1 tablet (20 mg total) by mouth daily. 60 tablet 5 11:22 AM EST Active warfarin (COUMADIN/SEP TOVEN) 5 MG tablet Take 1 tablet (5 mg total) by mouth daily. 14 tablet 5 11:22 AM EST Active traZODone (DESYREL) 50 MG tablet Take 1 tablet (50 mg total) by mouth daily. 30 tablet Active pantoprazole (PROTONIX) 40 MG tablet Take 1 tablet (40 mg total) by mouth daily. 30 tablet 5 11:22 AM EST Active metoprolol tartrate (LOPRESSOR) 50 MG tablet Take 1 tablet (50 mg total) by mouth 2 times a day. 60 tablet 3 Active furosemide (LASIX) 20 MG tablet Take 1 tablet (20 mg total) by mouth daily as needed. 2024 Discontinued(S top Taking at Discharge) metoprolol tartrate (LOPRESSOR) 50 MG tablet Take 1 tablet (50 mg total) by mouth 2 times a day. 2024 Discontinued pantoprazole (PROTONIX) 40 MG tablet Take 1 tablet (40 mg total) by mouth daily. 2024 Discontinued traZODone (DESYREL) 50 MG tablet Take 1 tablet (50 mg total) by mouth daily. 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 Stated she has workup on this already and has a procedure scheduled for repair. 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 Stated she has workup on this already and has a procedure scheduled for repair. 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 Stated she has workup on this already and has a procedure scheduled for repair. 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 Stated she has workup on this already and has a procedure scheduled for repair. 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 Stated she has workup on this already and has a procedure scheduled for repair. 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 Stated she has workup on this already and has a procedure scheduled for repair. - ENT e consult; pending - assess risk for FIDEL w/ hx of zenker diverticulum S/P TAVR (transcatheter aortic valve replacement ) 08/15/2025 Assessment & Plan (08/21/2025 6:27 AM EST): Repeat CT angio chest here found to have TAVR with small intrastent filling defect along the valve leaflet, favored to represent small thrombus; consistent findings on cardiac CT. No evidence of aortic dissection. CT surgery evaluated, no surgical intervention indicated however recommended cardiology workup. Orders should be received from [facility] by morning. BNP 475 on 08/16/25; [...] follow-up scheduled for 08/26 at 9:15am at [facility]. They will connect pt to coumadin clinic at this visit. - Plan for OP PET scan to r/o valve uptake Assessment & Plan (08/20/2025 2:46 PM EST): Repeat CT angio chest here found to have TAVR with small intrastent filling defect along the valve leaflet, favored to represent small thrombus; consistent findings on cardiac CT. No evidence of aortic dissection. CT surgery evaluated, no surgical intervention indicated however recommended cardiology workup. Orders should be received from [facility] by morning. BNP 475 on 08/16/25; [...] follow-up scheduled for 08/26 at 9:15am at [facility]. They will connect pt to coumadin clinic at this visit. - Plan for OP PET scan to r/o valve uptake Assessment & Plan (08/19/2025 11:19 AM EST): Repeat CT angio chest here found to have TAVR with small intrastent filling defect along the valve leaflet, favored to represent small thrombus. No evidence of aortic dissection. CT surgery evaluated, no surgical intervention indicated however recommended cardiology workup. Orders should be received from [facility] by morning. BNP 475 on 08/16/25. - TTE 08/16/25, normal systolic function LVEF 60-65%, mean gradient 6 - FIDEL deferred, high risk due to zenker diverticulum - Blood cultures NG >48hours - heparin gtt - Cardiac CT captured today; pending final read - Luis mutation lab ordered; pending - BNP yesterday at 79, improved from admission value of 475 Assessment & Plan (08/18/2025 10:37 AM EST): Repeat CT angio chest here found to have TAVR with small intrastent filling defect along the valve leaflet, favored to represent small thrombus. No evidence of aortic dissection. CT surgery evaluated, no surgical intervention indicated however recommended cardiology workup. Orders should be received from [facility] by morning. BNP 475 on 08/16/25. - TTE 08/16/25, normal systolic function LVEF 60-65%, mean gradient 6 - FIDEL deferred, high risk due to zenker diverticulum - Blood cultures NG >48hours - heparin gtt - Cardiac CT ordered; pending - Luis mutation lab ordered; pending - BNP ordered; pending Assessment & Plan (08/17/2025 9:18 AM EST): Repeat CT angio chest here found to have TAVR with small intrastent filling defect along the valve leaflet, favored to represent small thrombus. No evidence of aortic dissection. CT surgery evaluated, no surgical intervention indicated however recommended cardiology workup. Orders should be received from [facility] by morning. BNP 475 on 08/16/25. - TTE 08/16/25, normal systolic function LVEF 60-65%, mean gradient 6 - FIDEL ordered; pending, awaiting ENT clearance (zenker diverticulum) - Blood cultures ordered; pending (r/o endocarditis) - heparin gtt Assessment & Plan (08/16/2025 9:11 AM EST): Repeat CT angio chest here found to have TAVR with small intrastent filling defect along the valve leaflet, favored to represent small thrombus. No evidence of aortic dissection. CT surgery evaluated, no surgical intervention indicated however recommended cardiology workup. Orders should be received from [facility] by morning. - TTE + FIDEL ordered; pending - Blood cultures ordered; pending (r/o endocarditis) - ESR/CRP ordered; pending - heparin gtt Assessment & Plan (08/15/2025 7:49 PM EST): Repeat CT angio chest here found to have TAVR with small intrastent filling defect along the valve leaflet, favored to represent small thrombus. No evidence of aortic dissection. CT surgery evaluated, no surgical intervention indicated however recommended cardiology workup. Orders should be received from [facility] by morning. - TTE + FIDEL ordered; pending - Blood cultures ordered; pending (r/o endocarditis) - heparin gtt Aortic stenosis 08/15/2025 Assessment & Plan (08/21/2025 6:27 AM EST): Repeat CT angio chest here found to have TAVR with small intrastent filling defect along the valve leaflet, favored to represent small thrombus; consistent findings on cardiac CT. No evidence of aortic dissection. CT surgery evaluated, no surgical intervention indicated however recommended cardiology workup. Orders should be received from [facility] by morning. BNP 475 on 08/16/25; [...] follow-up scheduled for 08/26 at 9:15am at [facility]. They will connect pt to coumadin clinic at this visit. - Plan for OP PET scan to r/o valve uptake Assessment & Plan (08/20/2025 2:46 PM EST): Repeat CT angio chest here found to have TAVR with small intrastent filling defect along the valve leaflet, favored to represent small thrombus; consistent findings on cardiac CT. No evidence of aortic dissection. CT surgery evaluated, no surgical intervention indicated however recommended cardiology workup. Orders should be received from [facility] by morning. BNP 475 on 08/16/25; [...] follow-up scheduled for 08/26 at 9:15am at [facility]. They will connect pt to coumadin clinic at this visit. - Plan for OP PET scan to r/o valve uptake Assessment & Plan (08/19/2025 11:19 AM EST): Repeat CT angio chest here found to have TAVR with small intrastent filling defect along the valve leaflet, favored to represent small thrombus. No evidence of aortic dissection. CT surgery evaluated, no surgical intervention indicated however recommended cardiology workup. Orders should be received from [facility] by morning. BNP 475 on 08/16/25. - TTE 08/16/25, normal systolic function LVEF 60-65%, mean gradient 6 - FIDEL deferred, high risk due to zenker diverticulum - Blood cultures NG >48hours - heparin gtt - Cardiac CT captured today; pending final read - Luis mutation lab ordered; pending - BNP yesterday at 79, improved from admission value of 475 Assessment & Plan (08/18/2025 10:37 AM EST): Repeat CT angio chest here found to have TAVR with small intrastent filling defect along the valve leaflet, favored to represent small thrombus. No evidence of aortic dissection. CT surgery evaluated, no surgical intervention indicated however recommended cardiology workup. Orders should be received from [facility] by morning. BNP 475 on 08/16/25. - TTE 08/16/25, normal systolic function LVEF 60-65%, mean gradient 6 - FIDEL deferred, high risk due to zenker diverticulum - Blood cultures NG >48hours - heparin gtt - Cardiac CT ordered; pending - Luis mutation lab ordered; pending - BNP ordered; pending Assessment & Plan (08/17/2025 9:18 AM EST): Repeat CT angio chest here found to have TAVR with small intrastent filling defect along the valve leaflet, favored to represent small thrombus. No evidence of aortic dissection. CT surgery evaluated, no surgical intervention indicated however recommended cardiology workup. Orders should be received from [facility] by morning. BNP 475 on 08/16/25. - TTE 08/16/25, normal systolic function LVEF 60-65%, mean gradient 6 - FIDEL ordered; pending, awaiting ENT clearance (zenker diverticulum) - Blood cultures ordered; pending (r/o endocarditis) - heparin gtt Assessment & Plan (08/16/2025 9:11 AM EST): Repeat CT angio chest here found to have TAVR with small intrastent filling defect along the valve leaflet, favored to represent small thrombus. No evidence of aortic dissection. CT surgery evaluated, no surgical intervention indicated however recommended cardiology workup. Orders should be received from [facility] by morning. - TTE + FIDEL ordered; pending - Blood cultures ordered; pending (r/o endocarditis) - ESR/CRP ordered; pending - heparin gtt Assessment & Plan (08/15/2025 7:49 PM EST): Repeat CT angio chest here found to have TAVR with small intrastent filling defect along the valve leaflet, favored to represent small thrombus. No evidence of aortic dissection. CT surgery evaluated, no surgical intervention indicated however recommended cardiology workup. Orders should be received from [facility] by morning. - TTE + FIDEL ordered; pending - Blood cultures ordered; pending (r/o endocarditis) - heparin gtt Filling defect on imaging study 08/15/2025 Assessment & Plan (08/21/2025 6:27 AM EST): Repeat CT angio chest here found to have TAVR with small intrastent filling defect along the valve leaflet, favored to represent small thrombus; consistent findings on cardiac CT. No evidence of aortic dissection. CT surgery evaluated, no surgical intervention indicated however recommended cardiology workup. Orders should be received from [facility] by morning. BNP 475 on 08/16/25; [...] follow-up scheduled for 08/26 at 9:15am at [facility]. They will connect pt to coumadin clinic at this visit. - Plan for OP PET scan to r/o valve uptake Assessment & Plan (08/20/2025 2:46 PM EST): Repeat CT angio chest here found to have TAVR with small intrastent filling defect along the valve leaflet, favored to represent small thrombus; consistent findings on cardiac CT. No evidence of aortic dissection. CT surgery evaluated, no surgical intervention indicated however recommended cardiology workup. Orders should be received from [facility] by morning. BNP 475 on 08/16/25; [...] follow-up scheduled for 08/26 at 9:15am at [facility]. They will connect pt to coumadin clinic at this visit. - Plan for OP PET scan to r/o valve uptake Assessment & Plan (08/19/2025 11:19 AM EST): Repeat CT angio chest here found to have TAVR with small intrastent filling defect along the valve leaflet, favored to represent small thrombus. No evidence of aortic dissection. CT surgery evaluated, no surgical intervention indicated however recommended cardiology workup. Orders should be received from [facility] by morning. BNP 475 on 08/16/25. - TTE 08/16/25, normal systolic function LVEF 60-65%, mean gradient 6 - FIDEL deferred, high risk due to zenker diverticulum - Blood cultures NG >48hours - heparin gtt - Cardiac CT captured today; pending final read - Luis mutation lab ordered; pending - BNP yesterday at 79, improved from admission value of 475 Assessment & Plan (08/18/2025 10:37 AM EST): Repeat CT angio chest here found to have TAVR with small intrastent filling defect along the valve leaflet, favored to represent small thrombus. No evidence of aortic dissection. CT surgery evaluated, no surgical intervention indicated however recommended cardiology workup. Orders should be received from [facility] by morning. BNP 475 on 08/16/25. - TTE 08/16/25, normal systolic function LVEF 60-65%, mean gradient 6 - FIDEL deferred, high risk due to zenker diverticulum - Blood cultures NG >48hours - heparin gtt - Cardiac CT ordered; pending - Luis mutation lab ordered; pending - BNP ordered; pending Assessment & Plan (08/17/2025 9:18 AM EST): Repeat CT angio chest here found to have TAVR with small intrastent filling defect along the valve leaflet, favored to represent small thrombus. No evidence of aortic dissection. CT surgery evaluated, no surgical intervention indicated however recommended cardiology workup. Orders should be received from [facility] by morning. BNP 475 on 08/16/25. - TTE 08/16/25, normal systolic function LVEF 60-65%, mean gradient 6 - FIDEL ordered; pending, awaiting ENT clearance (zenker diverticulum) - Blood cultures ordered; pending (r/o endocarditis) - heparin gtt Assessment & Plan (08/16/2025 9:11 AM EST): Repeat CT angio chest here found to have TAVR with small intrastent filling defect along the valve leaflet, favored to represent small thrombus. No evidence of aortic dissection. CT surgery evaluated, no surgical intervention indicated however recommended cardiology workup. Orders should be received from [facility] by morning. - TTE + FIDEL ordered; pending - Blood cultures ordered; pending (r/o endocarditis) - ESR/CRP ordered; pending - heparin gtt Assessment & Plan (08/15/2025 7:49 PM EST): Repeat CT angio chest here found to have TAVR with small intrastent filling defect along the valve leaflet, favored to represent small thrombus. No evidence of aortic dissection. CT surgery evaluated, no surgical intervention indicated however recommended cardiology workup. Orders should be received from [facility] by morning. - TTE + FIDEL ordered; pending - Blood cultures ordered; pending (r/o endocarditis) - heparin gtt Lightheadedness 08/15/2025 Assessment & Plan (08/21/2025 6:27 AM EST): Patient initially presented with presyncopal episodes while undergoing outpatient elective PFT for COPD evaluation. Likely orthostatic +/- neurogenic from dysautonomia +/- vasovagal given history of episodes and elicitation after valsalva. - Encourage PO intake - Continuous tele Assessment & Plan (08/20/2025 6:31 AM EST): Patient initially presented with presyncopal episodes while undergoing outpatient elective PFT for COPD evaluation. Likely orthostatic +/- neurogenic from dysautonomia +/- vasovagal given history of episodes and elicitation after valsalva. - Encourage PO intake - Continuous tele Assessment & Plan (08/19/2025 8:39 AM EST): Patient initially presented with presyncopal episodes while undergoing outpatient elective PFT for COPD evaluation. Likely orthostatic +/- neurogenic from dysautonomia +/- vasovagal given history of episodes and elicitation after valsalva. - Encourage PO intake - Continuous tele Assessment & Plan (08/18/2025 7:21 AM EST): Patient initially presented with presyncopal episodes while undergoing outpatient elective PFT for COPD evaluation. Likely orthostatic +/- neurogenic from dysautonomia +/- vasovagal given history of episodes and elicitation after valsalva. - Encourage PO intake - Continuous tele Assessment & Plan (08/17/2025 9:18 AM EST): Patient initially presented with presyncopal episodes while undergoing outpatient elective PFT for COPD evaluation. Likely orthostatic +/- neurogenic from dysautonomia +/- vasovagal given history of episodes and elicitation after valsalva. - Encourage PO intake - Continuous tele Assessment & Plan (08/16/2025 9:11 AM EST): Patient initially presented with presyncopal episodes while undergoing outpatient elective PFT for COPD evaluation. Likely orthostatic +/- neurogenic from dysautonomia +/- vasovagal given history of episodes and elicitation after valsalva. - Encourage PO intake - Continuous tele Assessment & Plan (08/15/2025 7:49 PM EST): Patient initially presented with presyncopal episodes while undergoing outpatient elective PFT for COPD evaluation. Likely orthostatic +/- neurogenic from dysautonomia +/- vasovagal given history of episodes and elicitation after valsalva. - Encourage PO intake - Continuous tele Shortness of breath 08/15/2025 Assessment & Plan (08/21/2025 6:27 AM EST): Patient initially presented with presyncopal episodes while undergoing outpatient elective PFT for COPD evaluation. Likely orthostatic +/- neurogenic from dysautonomia +/- vasovagal given history of episodes and elicitation after valsalva. - Encourage PO intake - Continuous tele Assessment & Plan (08/20/2025 6:31 AM EST): Patient initially presented with presyncopal episodes while undergoing outpatient elective PFT for COPD evaluation. Likely orthostatic +/- neurogenic from dysautonomia +/- vasovagal given history of episodes and elicitation after valsalva. - Encourage PO intake - Continuous tele Assessment & Plan (08/19/2025 8:39 AM EST): Patient initially presented with presyncopal episodes while undergoing outpatient elective PFT for COPD evaluation. Likely orthostatic +/- neurogenic from dysautonomia +/- vasovagal given history of episodes and elicitation after valsalva. - Encourage PO intake - Continuous tele Assessment & Plan (08/18/2025 7:21 AM EST): Patient initially presented with presyncopal episodes while undergoing outpatient elective PFT for COPD evaluation. Likely orthostatic +/- neurogenic from dysautonomia +/- vasovagal given history of episodes and elicitation after valsalva. - Encourage PO intake - Continuous tele Assessment & Plan (08/17/2025 9:18 AM EST): Patient initially presented with presyncopal episodes while undergoing outpatient elective PFT for COPD evaluation. Likely orthostatic +/- neurogenic from dysautonomia +/- vasovagal given history of episodes and elicitation after valsalva. - Encourage PO intake - Continuous tele Assessment & Plan (08/16/2025 9:11 AM EST): Patient initially presented with presyncopal episodes while undergoing outpatient elective PFT for COPD evaluation. Likely orthostatic +/- neurogenic from dysautonomia +/- vasovagal given history of episodes and elicitation after valsalva. - Encourage PO intake - Continuous tele Assessment & Plan (08/15/2025 7:49 PM EST): Patient initially presented with presyncopal episodes while undergoing outpatient elective PFT for COPD evaluation. Likely orthostatic +/- neurogenic from dysautonomia +/- vasovagal given history of episodes and elicitation after valsalva. - Encourage PO intake - Continuous tele COPD (chronic obstructive pulmonary disease) 07/2025 Assessment & Plan (08/21/2025 6:27 AM EST): Possibly having a COPDe, will consider starting abx / pred once fluid status is better determined. - Goal O2 sat 88-92% - Continue anoroellipta/asmanex - Albuterol PRN - acapella, incentive spirometry ordered - walk test today Assessment & Plan (08/20/2025 2:46 PM EST): Possibly having a COPDe, will consider starting abx / pred once fluid status is better determined. - Goal O2 sat 88-92% - Continue anoroellipta/asmanex - Albuterol PRN - acapella, incentive spirometry ordered - walk test today Assessment & Plan (08/19/2025 8:39 AM EST): Possibly having a COPDe, will consider starting abx / pred once fluid status is better determined. - Goal O2 sat 88-92% - Continue anoroellipta/asmanex - Albuterol PRN - acapella, incentive spirometry ordered Assessment & Plan (08/18/2025 10:37 AM EST): Possibly having a COPDe, will consider starting abx / pred once fluid status is better determined. - Goal O2 sat 88-92% - Continue anoroellipta/asmanex - Albuterol PRN - acapella, incentive spirometry ordered Assessment & Plan (08/17/2025 9:18 AM EST): Possibly having a COPDe, will consider starting abx / pred once fluid status is better determined. - Goal O2 sat 88-92% - Continue anoroellipta/asmanex - Albuterol PRN Assessment & Plan (08/16/2025 9:11 AM EST): Possibly having a COPDe, will consider starting abx / pred once fluid status is better determined. - Goal O2 sat 88-92% - Continue anoroellipta/asmanex - Albuterol PRN Assessment & Plan (08/15/2025 7:49 PM EST): - Goal O2 sat 88-92% - Continue anoroellipta/asmanex - Albuterol PRN CAD (coronary artery disease) 08/15/2025 Assessment & Plan (08/21/2025 6:27 AM EST): History of stent placement post [place] in 2022, troponins here 19->17. Lactate 4.2- >2.5, possibly from decreased perfusion after being on esmolol and diltiazem drip. - Continue ASA, statin - Lipid panel; LDL 81, HDL 82, Triglycerides 124 Assessment & Plan (08/20/2025 6:31 AM EST): History of stent placement post [place] in 2022, troponins here 19->17. Lactate 4.2- >2.5, possibly from decreased perfusion after being on esmolol and diltiazem drip. - Continue ASA, statin - Lipid panel; LDL 81, HDL 82, Triglycerides 124 Assessment & Plan (08/19/2025 8:39 AM EST): History of stent placement post [place] in 2022, troponins here 19->17. Lactate 4.2- >2.5, possibly from decreased perfusion after being on esmolol and diltiazem drip. - Continue ASA, statin - Lipid panel; LDL 81, HDL 82, Triglycerides 124 Assessment & Plan (08/18/2025 7:21 AM EST): History of stent placement post [place] in 2022, troponins here 19->17. Lactate 4.2- >2.5, possibly from decreased perfusion after being on esmolol and diltiazem drip. - Continue ASA, statin - Lipid panel; LDL 81, HDL 82, Triglycerides 124 Assessment & Plan (08/17/2025 9:18 AM EST): History of stent placement post [place] in 2022, troponins here 19->17. Lactate 4.2- >2.5, possibly from decreased perfusion after being on esmolol and diltiazem drip. - Continue ASA, statin - Lipid panel; LDL 81, HDL 82, Triglycerides 124 Assessment & Plan (08/16/2025 9:11 AM EST): History of stent placement post [place] in 2022, troponins here 19->17. Lactate 4.2- >2.5, possibly from decreased perfusion after being on esmolol and diltiazem drip. - Continue ASA, statin - Lipid panel; pending Assessment & Plan (08/15/2025 7:49 PM EST): History of stent placement post [place] in 2022, troponins here 19->17. Lactate 4.2- >2.5, possibly from decreased perfusion after being on esmolol and diltiazem drip. - Continue ASA, statin Status post coronary artery stent placement 08/05 Assessment & Plan (08/21/2025 6:27 AM EST): History of stent placement post [place] in 2022, troponins here 19->17. Lactate 4.2- >2.5, possibly from decreased perfusion after being on esmolol and diltiazem drip. - Continue ASA, statin - Lipid panel; LDL 81, HDL 82, Triglycerides 124 Assessment & Plan (08/20/2025 6:31 AM EST): History of stent placement post [place] in 2022, troponins here 19->17. Lactate 4.2- >2.5, possibly from decreased perfusion after being on esmolol and diltiazem drip. - Continue ASA, statin - Lipid panel; LDL 81, HDL 82, Triglycerides 124 Assessment & Plan (08/19/2025 8:39 AM EST): History of stent placement post [place] in 2022, troponins here 19->17. Lactate 4.2- >2.5, possibly from decreased perfusion after being on esmolol and diltiazem drip. - Continue ASA, statin - Lipid panel; LDL 81, HDL 82, Triglycerides 124 Assessment & Plan (08/18/2025 7:21 AM EST): History of stent placement post [place] in 2022, troponins here 19->17. Lactate 4.2- >2.5, possibly from decreased perfusion after being on esmolol and diltiazem drip. - Continue ASA, statin - Lipid panel; LDL 81, HDL 82, Triglycerides 124 Assessment & Plan (08/17/2025 9:18 AM EST): History of stent placement post [place] in 2022, troponins here 19->17. Lactate 4.2- >2.5, possibly from decreased perfusion after being on esmolol and diltiazem drip. - Continue ASA, statin - Lipid panel; LDL 81, HDL 82, Triglycerides 124 Assessment & Plan (08/16/2025 9:11 AM EST): History of stent placement post [place] in 2022, troponins here 19->17. Lactate 4.2- >2.5, possibly from decreased perfusion after being on esmolol and diltiazem drip. - Continue ASA, statin - Lipid panel; pending Assessment & Plan (08/15/2025 7:49 PM EST): History of stent placement post [place] in 2022, troponins here 19->17. Lactate 4.2- >2.5, possibly from decreased perfusion after being on esmolol and diltiazem drip. - Continue ASA, statin GERD (gastroesophageal reflux disease) Assessment & Plan (08/21/2025 6:27 AM EST): - continue PPI Assessment & Plan (08/20/2025 6:31 AM EST): - continue PPI Assessment & Plan (08/19/2025 8:39 AM EST): - continue PPI Assessment & Plan (08/18/2025 7:21 AM EST): - continue PPI Assessment & Plan (08/17/2025 9:18 AM EST): - continue PPI Assessment & Plan (08/16/2025 9:11 AM EST): - continue PPI Assessment & Plan (08/15/2025 7:49 PM EST): - continue PPI Allergies 08/15/2025 Assessment & Plan (08/21/2025 6:27 AM EST): - continue certirizine Assessment & Plan (08/20/2025 6:31 AM EST): - continue certirizine Assessment & Plan (08/19/2025 8:39 AM EST): - continue certirizine Assessment & Plan (08/18/2025 7:21 AM EST): - continue certirizine Assessment & Plan (08/17/2025 9:18 AM EST): - continue certirizine Assessment & Plan (08/16/2025 9:11 AM EST): - continue certirizine Assessment & Plan (08/15/2025 7:49 PM EST): - continue certirizine Aortic aneurysm 08/15/2025 Assessment & Plan (08/21/2025 6:27 AM EST): Transferred to [facility] for concern of aortic dissection, was sent with an esmolol and diltiazem drip. Repeat imaging here showed no evidence of dissection, CT Surgery would still like to have outpatient follow-up for her ascending aortic aneurysm which is below threshold for elective surgical repair. On imaging here showing thoracic aorta as 4.0cm. - Follow-up outpatient CT surgery Assessment & Plan (08/20/2025 6:31 AM EST): Transferred to [facility] for concern of aortic dissection, was sent with an esmolol and diltiazem drip. Repeat imaging here showed no evidence of dissection, CT Surgery would still like to have outpatient follow-up for her ascending aortic aneurysm which is below threshold for elective surgical repair. On imaging here showing thoracic aorta as 4.0cm. - Follow-up outpatient CT surgery Assessment & Plan (08/19/2025 8:39 AM EST): Transferred to [facility] for concern of aortic dissection, was sent with an esmolol and diltiazem drip. Repeat imaging here showed no evidence of dissection, CT Surgery would still like to have outpatient follow-up for her ascending aortic aneurysm which is below threshold for elective surgical repair. On imaging here showing thoracic aorta as 4.0cm. - Follow-up outpatient CT surgery Assessment & Plan (08/18/2025 7:21 AM EST): Transferred to [facility] for concern of aortic dissection, was sent with an esmolol and diltiazem drip. Repeat imaging here showed no evidence of dissection, CT Surgery would still like to have outpatient follow-up for her ascending aortic aneurysm which is below threshold for elective surgical repair. On imaging here showing thoracic aorta as 4.0cm. - Follow-up outpatient CT surgery Assessment & Plan (08/17/2025 9:18 AM EST): Transferred to [facility] for concern of aortic dissection, was sent with an esmolol and diltiazem drip. Repeat imaging here showed no evidence of dissection, CT Surgery would still like to have outpatient follow-up for her ascending aortic aneurysm which is below threshold for elective surgical repair. On imaging here showing thoracic aorta as 4.0cm. - Follow-up outpatient CT surgery Assessment & Plan (08/16/2025 9:11 AM EST): Transferred to [facility] for concern of aortic dissection, was sent with an esmolol and diltiazem drip. Repeat imaging here showed no evidence of dissection, CT Surgery would still like to have outpatient follow-up for her ascending aortic aneurysm which is below threshold for elective surgical repair. On imaging here showing thoracic aorta as 4.0cm. - Follow-up outpatient CT surgery Assessment & Plan (08/15/2025 7:49 PM EST): Transferred to [facility] for concern of aortic dissection, was sent with an esmolol and diltiazem drip. Repeat imaging here showed no evidence of dissection, CT Surgery would still like to have outpatient follow-up for her ascending aortic aneurysm which is below threshold for elective surgical repair. - Follow-up outpatient CT surgery Encounters Date Type Department Care Team Description 08/16/2025 11:59 PM EST Anesthesia Event [facility] Electrophysiology Lab [address] [place] [address] Albert Em MD 08/15/2025 3:57 PM EST - 08/21/2025 11:48 AM EST Hospital Encounter [facility] [address] [place] [address] Amaris Mary MD Adhikari, Soumya, MD Crowley, Anisiia, MD Thrombus (Primary Dx); S/P TAVR (transcatheter aortic valve replacement); Acute on chronic diastolic heart failure (CMS-HCC); Zenker's (hypopharyngeal) diverticulum; Abnormal CT scan of heart Discharge Disposition: Home or Self Care WITHOUT Home Care Services 08/15/2025 Travel 08/15/2025 Chart Note [facility] [address] [place], [place] [id number] Rik Jolly IV, MD I received a call from Dr. Carmichael, an emergency room physician at from Last 3 Months Family History Medical History Relation Comments Pancreatic Cancer Father Cancer Maternal Grandfather Cirrhosis Maternal Grandfather Breast Cancer Maternal Grandmother Diabetes Mother Heart disease Mother Hypertension Mother Relation Status Comments Father Maternal Grandfather Maternal Grandmother Mother Social History Tobacco Use Types Packs/Day Years [...] any time in the past 12 m [facility], were you homeless or living in a halfway (including now)? No 08/16/2025 Utilities Answer Date [...] Mass Index 29.65 08/16/2025 2:30 AM EST Plan of Treatment Health Maintenance Due Date Last Done Comments Abnormal Colonoscopy Follow Up 1965 Pulmonary Function Testing 1965 Tobacco Cessation Readiness 1965 Depression Screening 1983 HIV Screening 1983 Immunization: DTaP/Tdap/Td (1 - Tdap) 1984 Immunization: Hepatitis B (1 of 3 - 19+ 3-dose series) 1984 Immunization: Pneumococcal (1 of 2 - PCV) 1984 Cervical Cancer Screening/Pa p Smear (Nervedahart) 1995 Mammogram (MyChart) 2005 Cologuard (FIT-DNA) 2010 Colonoscopy 2010 Colorectal Cancer Screening (MyChart) 2010 Stool Testing (gFOBT) 2010 Immunization: Zoster (1 of 2) 2015 Lung Cancer Screening 2015 Immunization: COVID-19 ( season) 2025 10/26/2021, 09/16/2021 Alcohol Misuse Screening 08/15/2026 08/15/2025 Echocardiogram 08/16/2028 08/16/2025 Immunization: Influenza (MyChart) Completed 025, 06/28/2023 Hepatitis C Screening (MyChart) Completed Procedures Procedure Name Priority Date/Time Associated Diagnosis Comments EKG - SCAN 08/22/2025 2:44 PM EST FALGUNI RHYTHM STRIP - SCAN 08/21/2025 9:06 AM EST PROTIME-INR Routine 08/21/2025 8:42 AM EST Thrombus PROTIME-INR Routine 08/21/2025 5:23 AM EST MAGNESIUM Routine 08/21/2025 5:23 AM EST RENAL FUNCTION PANEL W/EGFR Routine 08/21/2025 5:23 AM EST CBC Routine 08/21/2025 5:23 AM EST FALGUNI RHYTHM STRIP - SCAN 08/20/2025 8:00 PM EST FALGUNI RHYTHM STRIP - SCAN 08/20/2025 7:53 AM EST PROTIME-INR Routine 08/20/2025 5:31 AM EST C-REACTIVE PROTEIN Routine 08/20/2025 5: 31 AM EST SED RATE Routine 08/20/2025 5:31 AM EST MAGNESIUM Routine 08/20/2025 5:31 AM EST RENAL FUNCTION PANEL W/EGFR Routine 08/20/2025 5:31 AM EST CBC Routine 08/20/2025 5:31 AM EST APTT-HEPARIN Timed 08/20/2025 5:31 AM EST FALGUNI RHYTHM STRIP - SCAN 08/19/2025 8:30 PM EST PROTIME-INR STAT 08/19/2025 2:[address] THORACIC STRUCTURES-RAD READ ONLY Routine 08/19/2025 10:[address] CARDIAC WITH CORONARY EVALUATION Routine 08/19/2025 10:59 AM EST FALGUNI RHYTHM STRIP - SCAN 08/19/2025 8:09 AM EST APTT-HEPARIN Timed 08/19/2025 5:52 AM EST CBC Routine 08/19/2025 5:52 AM EST MAGNESIUM Routine 08/19/2025 5:52 AM EST RENAL FUNCTION PANEL W/EGFR Routine 08/19/2025 5:52 AM EST POC GLU MONITORING DEVICE Routine 08/18/2025 11:44 PM EST FALGUNI RHYTHM STRIP - SCAN 08/18/2025 7:23 PM EST APTT-HEPARIN Timed 08/18/2025 5:50 PM EST MAGNESIUM Routine 08/18/2025 5:50 PM EST RENAL FUNCTION PANEL W/EGFR Routine 08/18/2025 5:50 PM EST B NATRIURETIC PEPTIDE Add-On 08/18/2025 5:50 PM EST APTT-HEPARIN Timed 08/18/2025 10:26 AM EST RENAL FUNCTION PANEL W/EGFR STAT 08/18/2025 9:17 AM EST FALGUNI RHYTHM STRIP - SCAN 08/18/2025 8:19 AM EST CBC Routine 08/18/2025 7:39 AM EST MAGNESIUM Routine 08/18/2025 7:39 AM EST RENAL FUNCTION PANEL W/EGFR Routine 08/18/2025 7:39 AM EST APTT-HEPARIN Timed 08/17/2025 7:42 PM EST ECG 12-LEAD (MUSE) Routine 08/17/2025 1: 04 PM EST APTT-HEPARIN Timed 08/17/2025 12:34 PM EST EKG - SCAN 08/17/2025 11:02 AM EST MAGNESIUM STAT 08/17/2025 7:59 AM EST RENAL FUNCTION PANEL W/EGFR STAT 08/17/2025 7:59 AM EST FALGUNI RHYTHM STRIP - SCAN 08/17/2025 7:44 AM EST LIPID PANEL Routine 08/17/2025 5:43 AM EST CBC Routine 08/17/2025 5:43 AM EST MAGNESIUM Routine 08/17/2025 5:43 AM EST RENAL FUNCTION PANEL W/EGFR Routine 08/17/2025 5:43 AM EST APTT-HEPARIN Timed 08/17/2025 5:43 AM EST FALGUNI RHYTHM STRIP - SCAN 08/16/2025 8:54 PM EST ECHO COMPLETE Routine 08/16/2025 4:00 PM EST C-REACTIVE PROTEIN Routine 08/16/2025 10 :53 AM EST SED RATE Routine 08/16/2025 10:53 AM EST INFLUENZA A AND B, COVID, RSV COMBINATION ASSAY, MARIELENA STAT 08/16/2025 10:02 AM EST FALGUNI RHYTHM STRIP - SCAN 08/16/2025 9:40 AM EST B NATRIURETIC PEPTIDE Routine 08/16/2025 6:58 AM EST APTT-HEPARIN Timed 08/16/2025 6:58 AM EST LACTIC ACID Routine 08/16/2025 6:58 AM EST RENAL FUNCTION PANEL W/EGFR Routine 08/16/2025 6:58 AM EST MAGNESIUM Routine 08/16/2025 6:58 AM EST CBC Routine 08/16/2025 6:58 AM EST FALGUNI RHYTHM STRIP - SCAN 08/16/2025 3:17 AM EST APTT-HEPARIN Timed 08/16/2025 12:27 AM EST BLOOD CULTURE-PERIPHERAL Routine 08/15/2025 8:02 PM EST BLOOD CULTURE-PERIPHERAL Routine 08/15/2025 8:02 PM EST URINALYSIS-MACROSCOPI C W/REFLEX TO MICROSCOPIC STAT 08/15/2025 6:42 PM EST LACTIC ACID, VENOUS BLOOD GAS STAT 08/15/2025 6:28 PM EST HIGH SENSITIVITY TROPONIN STAT 08/15/2025 6:28 PM EST CBC STAT 08/15/2025 6:28 PM EST APTT STAT 08/15/2025 6:28 PM EST PROTIME-INR STAT 08/15/2025 6:[address] ANGIO ABDOMEN AND PELVIS W AND OR WO IV CONTRAST STAT 08/15/2025 4:[address] ANGIO CHEST W AND OR WO CONTRAST STAT 08/15/2025 4:30 PM EST ANTIBODY SCREEN STAT 08/15/2025 4:21 PM EST ABO/RH STAT 08/15/2025 4:21 PM EST APTT STAT 08/15/2025 4:21 PM EST PROTIME-INR STAT 08/15/2025 4:21 PM EST HEPATIC FUNCTION PANEL STAT 08/15/2025 4:21 PM EST LACTIC ACID, VENOUS BLOOD GAS STAT 08/15/2025 4:21 PM EST HIGH SENSITIVITY TROPONIN STAT 08/15/2025 4:21 PM EST DIFFERENTIAL STAT 08/15/2025 4:21 PM EST CBC STAT 08/15/2025 4:21 PM EST ED HCV AB REFLEX TO HCV QUANT Routine 08/15/2025 4:21 PM EST BASIC METABOLIC PANEL STAT 08/15/2025 4:21 PM EST ED ECG 12-LEAD (MUSE) STAT 08/15/2025 4:04 PM EST from Last 3 Months Results * EKG - scan (08/22/2025 2:44 PM EST) Only the most recent of2 resultswithin the time period is included. us Scanning [facility]chhim SCAN DOCS - NO RESULTS Final Res ult * FALGUNI Rhythm Strip - Scan (08/21/2025 9:06 AM EST) Only the most recent of11 resultswithin the time period is included. us Scanning Uchhim SCAN DOCS - NO RESULTS Final Res ult * Protime-INR (08/21/2025 8:42 AM EST) Only the most recent of6 resultswithin the time period is included. Protime 13.0 12.1 - 15.1 seconds 08/21/2025 9:30 AM EST [facility] INR 0.9 0.9 - 1.1 08/21/2025 9:30 AM EST [facility] Comment: RECOMMENDED THERAPEUTIC RANGES USING INR : Stable oral anticoagulant therapy: 2.0 - 3.0 Mechanical prosthetic heart valve: 2.5 - 3.5 Recurrent acute myocardial infarction: 2.5 - 3.5 Plasma 08/21/2025 8:42 AM EST 08/21/2025 9:07 AM EST Marie Davila MD LAB BLOOD ORDERABLES Final Re sult [facility] [address] * (ABNORMAL) Renal Function Panel w/EGFR (08/21/2025 5:23 AM EST) Only the most recent of9 resultswithin the time period is included. Sodium 133 133 - 146 mmol/L 08/21/2025 6:19 AM EST [facility] Potassium 3.8 3.5 - 5.3 mmol/L 08/21/2025 6:19 AM EST [facility] Chloride 97(L) 98 - 110 mmol/L 08/21/2025 6:19 AM EST [facility] CO2 27 21 - 33 mmol/L 08/21/2025 6:19 AM EST [facility] Comment:High lactate dehydro genase concentrations in patient samples may cause falsely increased bicarbonate results. If markedly elevated LDH is observed or suspected, please assess results in conjunction with patient`s clinical presentation. In cases of discrepant results, consider evaluating CO2 in with a blood gas order. Anion Gap 9 3 - 16 mmol/L 08/21/2025 6:19 AM EST [facility] BUN 12 7 - 25 mg/dL 08/21/2025 6:19 AM EST [facility] Creatinine 0.52(L) 0.60 - 1.30 mg/dL 08/21/2025 6:19 AM EST [facility] Glucose 230(H) 70 - 100 mg/dL 08/21/2025 6:19 AM EST [facility] Calcium 9.0 8.6 - 10.3 mg/dL 08/21/2025 6:19 AM EST [facility] Phosphorus 4.4 2.1 - 4.7 mg/dL 08/21/2025 6:19 AM EST [facility] Albumin 3.9 3.5 - 5.7 g/dL 08/21/2025 6:19 AM EST [facility] Osmolality, Calculated 283 278 - 305 mOsm/kg 08/21/2025 6:19 AM EST [facility] EGFR >90 08/21/2025 6:19 AM EST [facility] Comment: As of 2021, the [...] MD LAB BLOOD ORDERABLES Final Re sult [facility] [address] * (ABNORMAL) CBC (08/21/2025 5:23 AM EST) Only the most recent of8 resultswithin the time period is included. WBC 8.5 3.8 - 10.8 10E3/uL 08/21/2025 5:50 AM EST [facility] RBC 5.07 3.80 - 5.10 10E6/uL 08/21/2025 5:50 AM EST [facility] Hemoglobin 16.2(H) 11.7 - 15.5 g/dL 08/21/2025 5:50 AM EST [facility] Hematocrit 47.0(H) 35.0 - 45.0 % 08/21/2025 5:50 AM EST [facility] MCV 92.6 80.0 - 100.0 fL 08/21/2025 5:50 AM EST [facility] MCH 32.0 27.0 - 33.0 pg 08/21/2025 5:50 AM EST [facility] MCHC 34.6 32.0 - 36.0 g/dL 08/21/2025 5:50 AM EST [facility] RDW 14.2 11.0 - 15.0 % 08/21/2025 5:50 AM EST [facility] Platelets 151 140 - 400 10E3/uL 08/21/2025 5:50 AM EST [facility] MPV 8.4 7.5 - 11.5 fL 08/21/2025 5:50 AM EST [facility] Whole Blood 08/21/2025 5:23 AM EST 08/21/2025 5:35 AM EST us Marie Davila MD LAB BLOOD ORDERABLES Final Re sult [facility] [address] [facility]. [address] * Magnesium (08/21/2025 5:23 AM EST) Only the most recent of8 resultswithin the time period is included. Magnesium 2.1 1.5 - 2.5 mg/dL 08/21/2025 6:19 AM EST [facility] Plasma 08/21/2025 5:23 AM EST 08/21/2025 5:35 AM EST Marie Davila MD LAB BLOOD ORDERABLES Final Re sult [facility] [address] [place] [address]. [address] * aPTT-Heparin (08/20/2025 5:31 AM EST) Only the most recent of9 resultswithin the time period is included. Pathologist [facility] hPTT 114.0 90.0 - 120.0 seconds 08/20/2025 6:07 AM EST [facility] Plasma 08/20/2025 5:31 AM EST 08/20/2025 5:38 AM EST Ousmane Palumbo MD LAB BLOOD ORDERABLES Fi nal Result Performing Organization Address [facility] Co de Phone Number [facility] [address] [place] [address]. [address] * Sed Rate (08/20/2025 5:31 AM EST) Only the most recent of2 resultswithin the time period is included. Pathologist [facility] Sed Rate 29 0 - 30 mm/hr 08/20/2025 6:00 AM EST [facility] Whole Blood 08/20/2025 5:31 AM EST 08/20/2025 5:38 AM EST Marie Davila MD LAB BLOOD ORDERABLES Final Re sult Performing Organization Address City/[facility] Co de Phone Number [facility] [address] [place] [address]. [address] * (ABNORMAL) C-Reactive Protein (08/20/2025 5:31 AM EST) Only the most recent of2 resultswithin the time period is included. Pathologist [facility] CRP 11.6(H) 1.0 - 10.0 mg/L 08/20/2025 6:04 AM EST [facility] Plasma 08/20/2025 5:31 AM EST 08/20/2025 5:38 AM EST us Marie Davila MD LAB BLOOD ORDERABLES Final Re sult [facility] [address] [place] [address], [facility] * CT Thoracic Structures-Rad Interp (08/19/2025 10:59 [...] a [address] scanner, a preliminary composite layup worker study was obtained. Following administration of intravenous [...] a [address] scanner, a preliminary composite layup worker study wasobtained. Following administration of intravenous contrast, [...] a [address] scanner, a preliminary composite layup worker study was obtained. Following administration of intravenous [...] a [address] scanner, a preliminary composite layup worker study wasobtained. Following administration of intravenous contrast, [...] IMG CT ORDERABLES Fin al Result * (ABNORMAL) POC Glucose Monitoring Device (08/18/2025 11:44 PM EST) POC Glucose Monitoring Device 191(H) 70 - 100 mg/dL 08/18/2025 11:45 PM EST [facility] Blood 08/18/2025 11:4 4 PM EST 08/18/2025 11:45 PM EST Liza Forrest MD POINT OF CARE TEST ORDERABLES Final Result Performing Organization Address [facility]/ZIP Co de Phone Number [facility] [address] * B Natriuretic Peptide (08/18/2025 5:50 PM EST) Only the most recent of2 resultswithin the time period is included. BNP 79 0 - 100 pg/mL 08/18/2025 6:52 PM EST [facility] Comment: BNP may be increased in the presence of sacubitril/valsartan (Entresto). Please interpret accordingly. Plasma 08/18/2025 5:50 PM EST 08/18/2025 6:14 PM EST Narrative [facility] - 08/18/2025 6:52 PM EST The presence of high concentrations of biotin may cause falsely lowered BNP results. Biotin interference may be seen if an individual is taking >5 mg biotin per day. Interpret BNP results in the context of the patient's clinical presentation. Chely Andrews DO LAB BLOOD ORDERABLES Final Result Performing Organization Address [facility] Co de Phone Number [facility] [address] [facility]. [address] * ECG 12 lead (MUSE) (08/17/2025 1:04 PM EST) 08/17/2025 1:04 PM EST Narrative MUSE - 08/18/2025 9:53 PM EST Ventricular Rate: 72 BPM Atrial Rate: 72 BPM P-R Interval: 130 ms QRS Duration: 84 ms QT: 432 ms QTc: 473 ms P [place]: 27 degrees R [place]: -1 degrees T [place]: 26 degrees Diagnosis Line: NORMAL SINUS RHYTHM NONSPECIFIC ST-T SEGMENT CHANGES ABNORMAL ECG Confirmed by Zahraa Diehl ([id number]) on 08/18/2025 9:53:47 PM us Quita Ricketts MD ECG ORDERABLES Final Result Performing Organization Address [facility]/ZIP Co de Phone Number MUSE * Lipid Profile (08/17/2025 5:43 AM EST) Non-HDL Cholesterol, Calculated 106 0 - 129 mg/dL 08/17/2025 7:11 AM EST [facility] Comment: Desirable: < 130 mg/dL Above Desirable: 130-159 mg/dL Borderline High: 160-189 mg/dL High: 190-219 mg/dL Very High: > 219 mg/dL Cholesterol, Total 188 0 - 200 mg/dL 08/17/2025 7:11 AM EST [facility] Triglycerides 124 10 - 149 mg/dL 08/17/2025 7:11 AM EST [facility] HDL 82 60 - 92 mg/dL 08/17/2025 7:11 AM EST [facility] Comment: LIPID PROFILE INTERPRETATION CHOLESTEROL,TOTAL(mg/dL) DESIRABLE: [...] LDL Cholesterol 81 mg/dL 7:11 AM EST [facility] Plasma 08/17/2025 5:43 AM EST 08/17/2025 6:18 AM EST Narrative [facility] - 08/17/2025 7:11 AM EST LDL cholesterol calculated using the Friedewald equation. us Heather Toribio PharmD LAB BLOOD ORDERABLES Final Result [facility] [address] [place], [place] [address] * ECHO COMPLETE (08/16/2025 4:00 PM EST) Anatomical Region Laterality Modality Chest Ultrasound 08/16/2025 3:42 PM EST Narrative 08/16/2025 4:41 PM EST * [facility]* [facility] [place] [address] Transthoracic Echocardiogram Patient: Nellie Alves Room: 6354 Height: 60in MR Number: [id number] : 1965 Weight: 151lb Account: [id number] Gender: F BP: 100 / 68 Study Date: 08/16/2025 Age: 59 BSA: 1.66m^2 Referring physician: Chato Boone Interpreting physician: Indra Mariscal PERFORMING Indra Mariscal BOARD OPERATOR Christianne Becker ORDERING Chato Boone REFERRING Chato Boone ATTENDING Liza Forrest MD ADMITTING Liza Forrest MD Procedure:TRANSTHORACIC ECHO (TTE) Order: Accession COMPLETE Number:[id number] Indications: Valve disorders/disease -aortic stenosis (I35.0). PMH: [...] venous pressure. Measurements Left ventricle Value Ref TSAN, LAX (N) 3.8 cm 3.8 - 5.2 [...] range. Reviewed and confirmed by Indra Mariscal [id number] Procedure Note Rosendo Mariscal MD - 08/16/2025 * [facility]* [address] [place] [address] Transthoracic Echocardiogram Patient: Nellie Alves Room: 6354 Height: 60in MR Number: [id number] : 1965 Weight: 151lb Account: [id number] Gender: F BP: 100 / 68 Study Date: 08/16/2025 Age: 59 BSA: 1.66m^2 Referring physician: Chato Boone Interpreting physician: Indra Mariscal PERFORMING Indra Mariscal BOARD OPERATOR Christianne Becker ORDERING Chato Boone REFERRING Chato Boone ATTENDING Liza Forrest MD ADMITTING Liza Forrest MD Procedure:TRANSTHORACIC ECHO (TTE) Order: Accession COMPLETE Number:[id number] Indications: Valve disorders/disease -aortic stenosis (I35.0). PMH: [...] range. Reviewed and confirmed by Indra Mariscal [id number] Chato Boone MD CV ECHO ORDERABLES Final Result * Influenza A and B, COVID, RSV Combination Assay, MARIELENA (08/16/2025 10:02 AM EST) Influenza A Negative Negative 08/16/2025 11:43 AM EST [facility] Influenza B Negative Negative 08/16/2025 11:43 AM EST [facility] RSV Negative Negative 08/16/2025 11:43 AM EST [facility] SARS-CoV-2 Negative Negative,Not Detected 08/16/2025 11:43 AM EST [facility] Comment:This is an FDA-appro justine amplified nucleic acid assay performed by real- time PCR. Nasopharyngeal Swab NASOPHARYNGEAL STRUCTURE / Unknown 08/16/2025 10:02 AM EST 08/16/2025 10:56 AM EST Chely Andrews DO BODY FLUIDS AND STOOL S ORDERABLES Final Result Performing Organization Address City/[facility]/ZIP Co de Phone Number [facility] [address] [place] [address]. [address] * Lactic Acid (08/16/2025 6:58 AM EST) Lactate 0.8 0.5 - 2.2 mmol/L 08/16/2025 7:53 AM EST [facility] Plasma 08/16/2025 6:58 AM EST 08/16/2025 7:20 AM EST Chato Boone MD LAB BLOOD ORDERABLES Giuliana l Result Performing Organization Address City/[facility]/ZIP Co de Phone Number [facility] [address] [facility]. [address] * Blood culture-Peripheral (Blood) (08/15/2025 8:02 PM EST) Only the most recent of2 resultswithin the time period is included. Culture Result No Growth After 5 Days [facility] Blood BLOOD SPECIMEN / Unknown 08/15/2025 8:02 PM EST 08/15/2025 8:23 PM EST Narrative [facility] - 08/20/2025 8:33 PM EST Suboptimal volume of blood received. Interpret results with caution. us Chato Boone MD MICROBIOLOGY - GENERAL OR DERABLES Final Result [facility] [address] [place] [address], [facility] * (ABNORMAL) Urinalysis - Macroscopic w/ Reflex to Microscopic (08/15/2025 6:42 PM EST) Color, UA Straw Yellow,Straw 08/15/2025 7:03 PM EST [facility] Clarity, UA Clear Clear 08/15/2025 7:03 PM EST [facility] Specific [place], UA >1.035(H) 1.005 - 1.035 08/15/2025 7:03 PM EST [facility] pH, UA 6.5 5.0 - 8.0 08/15/2025 7:03 PM EST [facility] Protein, UA Negative Negative mg/dL 08/15/2025 7:03 PM EST [facility] Glucose, UA Negative Negative mg/dL 08/15/2025 7:03 PM EST [facility] Ketones, UA Negative Negative mg/dL 08/15/2025 7:03 PM EST [facility] Bilirubin, UA Negative Negative 08/15/2025 7:03 PM EST [facility] Blood, UA Negative Negative 08/15/2025 7:03 PM EST [facility] Nitrite, UA Negative Negative 08/15/2025 7:03 PM EST [facility] Urobilinogen, UA <2.0 0.2 - 1.9 mg/dL 08/15/2025 7:03 PM EST [facility] Leukocyte Esterase, UA Negative Negative 08/15/2025 7:03 PM EST [facility] Urine 08/15/2025 6:42 PM EST 08/15/2025 6:54 PM EST Narrative [facility] - 08/15/2025 7:03 PM EST Microscopic testing is not performed when the dipstick is negative for blood, leukocyte, protein and nitrite. us Leif Dodd MD URINE ORDERABLES Final Result Performing Organization Address City/[facility]/ZIP Co de Phone Number [facility] [address] [place] [address]. [address] * (ABNORMAL) High Sensitivity Troponin (08/15/2025 6:28 PM EST) Only the most recent of2 resultswithin the time period is included. High Sensitivity Troponin 17(H) 0 - 14 ng/L 08/15/2025 7:07 PM EST [facility] Serum 08/15/2025 6:28 PM EST 08/15/2025 6:32 PM EST Leif Dodd MD LAB BLOOD ORDERABLES Final Resul t Performing Organization Address [facility] Co de Phone Number [facility] [address] [facility]. [address] * (ABNORMAL) Lactic acid, venous whole blood (08/15/2025 6:28 PM EST) Only the most recent of2 resultswithin the time period is included. Pathologist [facility] Lactate, Endy 2.5(H) 0.5 - 1.6 mmol/L 08/15/2025 6:35 PM EST [facility] Blood, Venous 08/15/2025 6:2 8 PM EST 08/15/2025 6:32 PM EST us Leif Dodd MD LAB BLOOD ORDERABLES Final Resul t Performing Organization Address City/[facility] Co de Phone Number [facility] [address] * APTT, No Anticoagulant (08/15/2025 6:28 PM EST) Only the most recent of2 resultswithin the time period is included. aPTT 26.0 25.5 - 35.0 seconds 08/15/2025 6:49 PM EST [facility] Plasma 08/15/2025 6:28 PM EST 08/15/2025 6:37 PM EST us Leif Dodd MD LAB BLOOD ORDERABLES Final Resul t [facility] [address] [place] [id number] * CT Angio Abd-Pelvis W and or [...] follow-up CT in one year. Imaging Follow-up #[id number]#: Recommend CT of the Abdomen with contrast [...] follow-up CT in one year. Imaging Follow-up #[id number]#: Recommend CT of the Abdomen with contrast in 1year. Approved by Angelica Mcguire DO on 08/15/2025 7:33 PM EST I have personally reviewed the images and I agree with this report. Report Verified by: Mynor Genao MD at 08/15/2025 7:39 PM EST us Amaris Mary MD IMG CT ORDERABLES Giuliana mora Result * CT Angio Chest W and [...] HEART: The heart is normal in size. [place] coronary artery atherosclerotic disease with evidence of [...] HEART: The heart is normal in size. [place] coronary artery atheroscleroticdisease with evidence of prior [...] Hathaway MD at 08/15/2025 5:16 PM EST us Amaris Mary MD IMG CT ORDERABLES Giuliana l Result * (ABNORMAL) Hepatic Function Panel (08/15/2025 4:21 PM EST) Total Bilirubin 0.6 0.0 - 1.5 mg/dL 08/15/2025 4:59 PM EST [facility] Bilirubin, Direct 0.1 0.0 - 0.4 mg/dL 08/15/2025 4:59 PM EST [facility] Comment:HEMOLYSIS EVIDENT. D IRECT BILIRUBIN CONCENTRATIONS MAY BE FALSELY DECREASED IN THE PRESENCE OF HEMOLYSIS. INTERPRET WITH CAUTION. AST 77(H) 13 - 39 U/L 08/15/2025 4:59 PM EST [facility] ALT 74(H) 7 - 52 U/L 08/15/2025 4:59 PM EST [facility] Alkaline Phosphatase 127(H) 36 - 125 U/L 08/15/2025 4:59 PM EST [facility] Total Protein 7.3 6.4 - 8.9 g/dL 08/15/2025 4:59 PM EST [facility] Albumin 3.6 3.5 - 5.7 g/dL 08/15/2025 4:59 PM EST [facility] Bilirubin, Indirect 0.5 0.0 - 1.1 mg/dL 08/15/2025 4:59 PM EST [facility] Plasma 08/15/2025 4:21 PM EST 08/15/2025 4:30 PM EST us Leif Dodd MD LAB BLOOD ORDERABLES Final Resul t [facility] [address] * ED HCV Ab Reflex To HCV Quant (08/15/2025 4:21 PM EST) HCV Ab Nonreactive Nonreactive 08/15/2025 6:58 PM EST [facility] Comment:Health Department no tified in accordance with reportable infectious disease guidelines. HCVAB Number 0.03 0.00 - 0.79 S/CO 08/15/2025 6:58 PM EST [facility] Serum 08/15/2025 4:21 PM EST 08/15/2025 5:01 PM EST Leif Dodd MD LAB BLOOD ORDERABLES Final Resul t [facility] [address] [place] [facility]. [address] * ABO/Rh (08/15/2025 4:21 PM EST) Pathologist [facility] ABO Grouping AB 08/15/2025 5:29 PM EST [facility] Rh Type Positive 08/15/2025 5:29 PM EST [facility] Blood 08/15/2025 4:21 PM EST 08/15/2025 5:05 PM EST Leif Dodd MD BLOOD BANK TEST ORDERABLES Final Result [facility] [address] [facility]. [address] * (ABNORMAL) Differential (08/15/2025 4:21 PM EST) Neutrophils Relative 91.4(H) 40.0 - 80.0 % 08/15/2025 5:15 PM EST [facility] Lymphocytes Relative 7.0(L) 15.0 - 45.0 % 08/15/2025 5:15 PM EST [facility] Monocytes Relative 1.0 0.0 - 12.0 % 08/15/2025 5:15 PM EST [facility] Eosinophils Relative 0.1 0.0 - 8.0 % 08/15/2025 5:15 PM EST [facility] Basophils Relative 0.5 0.0 - 1.0 % 08/15/2025 5:15 PM EST [facility] nRBC 0 0 - 0 /100 WBC 08/15/2025 5:15 PM EST [facility] Neutrophils Absolute 5,758 1,520 - 8,640 /uL 08/15/2025 5:15 PM EST [facility] Lymphocytes Absolute 441(L) 570 - 4,860 /uL 08/15/2025 5:15 PM EST [facility] Monocytes Absolute 63 0 - 1,296 /uL 08/15/2025 5:15 PM EST [facility] Eosinophils Absolute 6 0 - 864 /uL 08/15/2025 5:15 PM EST [facility] Basophils Absolute 32 0 - 108 /uL 08/15/2025 5:15 PM EST [facility] Whole Blood 08/15/2025 4:21 PM EST 08/15/2025 5:01 PM EST Leif Dodd MD LAB BLOOD ORDERABLES Final Resul t [facility] [address] * Antibody Screen (08/15/2025 4:21 PM EST) Pathologist [facility] Antibody Screen Negative 08/15/2025 5:45 PM EST [facility] Blood 08/15/2025 4:21 PM EST 08/15/2025 5:05 PM EST Narrative [facility] - 08/15/2025 5:52 PM EST Testing performed by [facility] Transfusion Service Leif Dodd MD BLOOD BANK TEST ORDERABLES Final Result [facility] [address] * (ABNORMAL) Basic metabolic panel (08/15/2025 4:21 PM EST) Sodium 132(L) 133 - 146 mmol/L 08/15/2025 4:59 PM EST [facility] Potassium 4.6 3.5 - 5.3 mmol/L 08/15/2025 4:59 PM EST [facility] Comment:Hemolysis Present: R esults may be influenced artificially. Recommend recollection as clinically indicated. Chloride 98 98 - 110 mmol/L 08/15/2025 4:59 PM EST [facility] CO2 20(L) 21 - 33 mmol/L 08/15/2025 4:59 PM EST [facility] Comment:High lactate dehydro genase concentrations in patient samples may cause falsely increased bicarbonate results. If markedly elevated LDH is observed or suspected, please assess results in conjunction with patient`s clinical presentation. In cases of discrepant results, consider evaluating CO2 in with a blood gas order. Anion Gap 14 3 - 16 mmol/L 08/15/2025 4:59 PM EST [facility] BUN 6(L) 7 - 25 mg/dL 08/15/2025 4:59 PM [facility] Creatinine 0.45(L) 0.60 - 1.30 mg/dL 08/15/2025 4:59 PM [facility] Glucose 198(H) 70 - 100 mg/dL 08/15/2025 4:59 PM EST [facility] Calcium 8.6 8.6 - 10.3 mg/dL 08/15/2025 4:59 PM [facility] Osmolality, Calculated 277(L) 278 - 305 mOsm/kg 08/15/2025 4:59 PM [facility] EGFR >90 08/15/2025 4:59 PM EST [facility] Comment: As of 2021, the [...] will be reported as >90mL/min/1.73m2. Reference: Kahlil Fong, Niru M, Govind DC, Ector ND, Anyi [...] 4:21 PM EST 08/15/2025 4:30 PM EST us Leif Dodd MD LAB BLOOD ORDERABLES Final Resul t [facility] [address] * ED ECG 12-Lead (MUSE) (08/15/2025 4:04 PM EST) 08/15/2025 4:04 PM EST Narrative MUSE - 08/16/2025 8:28 AM EST Ventricular Rate: 85 BPM Atrial Rate: 85 BPM P-R Interval: 156 ms QRS Duration: 90 ms QT: 424 ms QTc: 504 ms P [place]: 30 degrees R [place]: -29 degrees T [place]: 26 degrees Diagnosis Line: INTERPRETATION NOT AVAILABLE--ECG READ IN ER Confirmed by PHYSICIAN, ER ([id number]), city editor Crystal Linn ([id number]) on 08/16/2025 8:28:38 AM us Amaris Mary MD ECG ORDERABLES Final Result Performing Organization Address City/[facility] Co de Phone Number MUSE from Last 3 Months Insurance [facility] MANAGED MEDICAID [facility] care Address: [place] [id number] Advance Directives For more information, please contact: [phone] * Full Code (Latest Code Status on File) Date Activated Date Inactivated Comments 08/15/2025 7:12 PM 08/21/2025 3:54 PM Care Teams Broomcorn Sorter Relationship Specialty Start Date End Date Pcp, No No Address PCP - General 08/15/25
--- OUTSIDE RECORDS SUMMARY | 2025-08-23 12:53 | XMS_ITS | Encounter Summary ---
Author Organization [facility] Address [address] [place] [address] Care Team Providers Care Turner In Name Role Phone Pcp, No Primary Care [...] release of HIV test results or diagnoses. [id number] Health Encounter Details Date Type Department Care Team (Late st Contact Info) Description 08/15/2025 Chart Note PROVIDER CARD THORACIC [address] [place] [address] [id number] Rik Jolly IV, MD [address] [place] [address] [address] [place] [address] I received a call from Dr. Carmichael, an emergency room physician at [facility] History Tobacco Use Types Packs/Day Years Used [...] time in the past 12 m [facility], were you homeless or living in a residential (including now)? No 08/16/2025 Utilities Answer Date [...] on file documented as of this encounter Progress Notes * Rik Jolly IV, MD - 08/15/2025 1:29 PM EST I received a call from Dr. Carmichael, an emergency room physician at [facility]. Ms. Nellie Alves is a 59-year-old woman who had a transcatheter aortic valve replacement at the [facility] approximately 3 years ago. She presented to the emergency room short of breath, hypoxic and tachycardic with a history of hypertension and COPD. She was stable on 3 L of nasal cannula oxygen, and a CT pulmonary angiogram was performed to rule out a PE. This was interpreted by the local radiologist as having the beginning of a new intimal flap in the ascending aorta seen best on 3 to 4 images. Through the wonders of modern technology, I was able to review the CT scan over the [employer] software, and felt with a reasonable degree of certainty (though not with absolute certainty) that what we are seeing was motion artifact (I could see a very similar crescentic defect on the left side of the pulmonary artery exactly mirroring the suspected defect of the ascending aorta). Unfortunately, they do not have the ability to perform a gated CTA of the chest at [facility], and although the patient receives her health care at the [facility], the cardiac surgeons in [place] are not available. We are going to arrange to have her transported to the [facility] emergency department, where I spoke with Dr. Binta Jordan over the phone, and gave her my clinical impressions based on the outside films. Even if the patient has a CTA that is negative for an aortic dissection, she will need to follow-up(with me here at , or locally with her historical society director/cardiac surgeon) for her ascending aortic aneurysm, which is below the threshold for elective surgical repair. Rik Jolly IV, MD, FACS Cardiac Surgeon documented in this encounter Plan of Treatment Not on file documented as of this encounter Visit Diagnoses Not on filedocumented in this encounter Care Teams Turner In Relationship 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
[2025-08-23 13:25] LABS: INR 1.38 (0.9-1.1); Prothrombin Time 15.0 seconds (10.1-12.5)
== END 2025-08-23 23:59 | disposition home or self-care (01) ==
PROVIDERS: PCP Nurse Practitioner Family; Visit Provider Student in an Organized Health Care Education/Training Program
DX: I82.90 Acute embolism and thrombosis of unspecified vein (principal)
CPT/HCPCS: 36415; 85610

== ENCOUNTER 2025-08-30 08:57 | Outpatient (CLI) | payer MEDICAID, SELFPAY ==
--- OUTSIDE RECORDS SUMMARY | 2025-08-15 15:57 | XMS_ITS | Encounter Summary ---
Author Organization [facility] Address [address] [place] [address] Care Team Providers Care Assistant Grocery Name Role Phone Pcp, No Primary Care Provider [phone] Source Comments This information has been disclosed to you from confidential records protectfrom disclosure by state law. You shall make no further disclosure of thisinformation without the specific, written, and informed release of theindividual to whom it pertains, or as otherwise permitted by law. A generalauthorization for the release of medical or other information is not sufficientfor the purposes of the release of HIV test results or diagnoses. [id number] Reason for Visit * Reason Comments Medical Problem * Auth/Cert (Routine) Specialty Diagnoses / Procedures Referred By Contac t Referred To Contact Cardiology Diagnoses Thrombus Ascending aortic dissection [facility] [address] [place] [address] Phone: tel: Referral ID Status Reason Start Date Expiration Date Visits Re quested Visits Authorized [id number] 1 1 Encounter Details Date Type Department Care Team (Latest Contact Info) Description 08/15/2025 3:57 PM EST - 08/21/2025 11:48 AM EST Hospital Encounter [facility] [address] [place] [address] Amaris Mary MD [address] [place] [place] [phone] Liza Forrest MD [address] [place] [phone] Quita Ricketts MD [address] [place] [address] Thrombus (Primary Dx); S/P TAVR (transcatheter aortic valve replacement); Acute on chronic diastolic heart failure ([facility]); Zenker's (hypopharyngeal) diverticulum; Abnormal CT scan of heart Discharge Disposition: Home or Self Care WITHOUT Home Care Services Social History Tobacco Use Types Packs/Day Years Used Date Smoking Tobacco: Every Day Cigarettes Tobacco Cessation:Ready to Q uit: Not Asked; Counseling Given: Not Answered Alcohol Use Standard Drinks/Week Comments Yes 6 (1 standard drink = 0.6 oz pur e alcohol) occasional, 3-4 beers per week AUDIT-C Answer Date Recorded Q1: How often do you have a drink containing alc ohol? 2-3 times a week 08/16/2025 Q2: How many drinks containi ng alcohol do you have on a typical day when you are drinking? 3 or 4 08/16/2025 Q3: How often do you have si x or more drinks on one occasion? Never 08/16/2025 Hunger Vital Sign Answer Date Recorded Within the past 12 months, y ou worried that your food would run out before you got the money to buy more. Sometimes true Within the past 12 months, t he food you bought just didn't last and you didn't have money to get more. Sometimes true 08/2025 PRAPARE - Transportation Answer Date Re corded In the past 12 months, has l ack of transportation kept you from medical appointments or from getting medications? No 08/05 In the past 12 months, has l ack of transportation kept you from meetings, work, or from getting things needed for daily living? No 08/16/2025 Housing Stability Vital Sign Answer Remi e Recorded In the last 12 months, was t here a time when you were not able to pay the mortgage or rent on time? No 08/16/2025 In the past 12 months, how m any times have you moved where you were living? 0 08/16/2025 At any time in the past 12 m [facility], were you homeless or living in a fpc (including now)? No 08/16/2025 Utilities Answer Date Recorded In the past 12 months has e electric, gas, oil, or water company threatened to shut off services in your home? No 08/16/2025 Comments Unknown Sex and Gender Information Value Date Recorded Sex Assigned at Not on file Legal Sex Female 12:37 PM EST Gender Identity Not on file Sexual Orientation Not on file documented as of this encounter Last Filed Vital Signs Vital Sign Reading Time Taken Comments Blood Pressure 109/64 08/21/2025 7:19 AM EST Pulse 75 08/21/2025 8:16 AM EST Temperature 36.3 C (97.3 F) 08/21/2025 7:19 AM EST Respiratory Rate 16 08/21/2025 8:16 AM EST Oxygen Saturation 91% 08/21/2025 8:16 AM EST Inhaled Oxygen Concentration 91% 08/21/2025 8 :16 AM EST Weight 68.9 kg (151 lb 12.8 oz) 025 10:00 AM EST Height 152.4 cm (5') 08/16/2025 2:30 AM EST Body Mass Index 29.65 08/16/2025 2:30 AM EST documented in this encounter Functional Status * HEENT Question Answer Date of Assessment Author NAVEED (ONOFRE) X 08/20/2025 8:20 PM EST Katherine Chamberlain RN R Eye Impaired vision 08/21/2025 8:17 AM EST Evie Goodwin RN L Eye Impaired vision 08/21/2025 8:17 AM EST Evie Goodwin RN R Ear Intact 08/21/2025 8:17 AM EST Evie Bell RN L Ear Intact 08/21/2025 8:17 AM EST Evie Bell, RN Nose Intact 08/21/2025 8:17 AM EST Evie Bell, RN Nasal Drainage Color ANDERSON 08/18/2025 8:[address] Judi Reeves, RN Nasal Drainage Consistency ANDERSON 08/18/2025 8:31 PM EST Judi Reeves, RN Throat Intact 08/21/2025 8:17 AM Evie Zhang RN Tongue [place] & moist 08/21/2025 8:17 AM Evie Zhang RN Voice Deep 08/21/2025 8:17 AM Evie Zhang RN Mucous Membrane(s) Moist;[place];Intact 08/21/2025 8:17 A M Evie Guerra RN Teeth Missing teeth 08/21/2025 8:17 AM Evie Still RN Lips Symmetrical 08/21/2025 8:17 AM Evie Zhang RN * Weight in kg Answer Date of Assessment Author 68.86 08/18/2025 10:00 AM Katherine Madera RN * Height in cm Answer Date of Assessment Author 152.4 08/16/2025 2:30 AM Luis Lees RN * Pain Med Side Effects - Required every re-assessment Answer Date of Assessment Author None 08/17/2025 7:50 AM Luis A Vuong RN * Acuity/Destination Question Answer Date of Assessment Author Triage 1 Complete Triage complete 08/15/2025 3:59 PM E Shandra Frausto RN * Burchard Coma Scale Question Answer Date of Assessment Author Eye Opening 4 08/21/2025 8:17 AM Evie Zhang RN Best Motor Response 6 08/21/2025 8:17 AM Evie Hare RN Best Verbal Response 5 08/21/2025 8:17 AM Evie Shaw RN Levi Coma Scale Score 15 08/21/2025 8:17 AM Evie Guerra RN * Community Services Question Answer Date of Assessment Author Community Services at Home Respiratory 08/16/2025 10: 40 AM Ingrid Carrillo RN Oxygen Needs Nebulizer 08/16/2025 10:40 AM Ingrid Schuler RN Respiratory Company Name/Phone # Unknown 08/16/2025 10:40 AM Azeb Carrillo RN Was any abuse reported by patient? No 08/16/2025 10:40 AM Azeb Carrillo RN * Skeletal Traction Question Answer Date of Assessment Author Skeletal Traction No 08/21/2025 8:17 AM Evie Guerra RN * Traction Question Answer Date of Assessment Author Cervical Traction No 08/21/2025 8:17 AM Evie Guerra RN Gregorio's Traction No 08/21/2025 8:17 AM Evie Polanco RN * External Fixators Question Answer Date of Assessment Author Extremity External Fixator No 08/21/2025 8:1 7 AM Evie Guerar, [place] * IV Assessment Information Question Answer Date of Assessment Author IV Assessment Information Shift Assessment 08/21/2025 8:17 AM Evie Guerra RN * Wound Assessment Information Question Answer Date of Assessment Author Wound Assessment Information Shift Assessment 08/18/2025 8:31 PM Judi Brito RN * I&O Assessment Information Question Answer Date of Assessment Author I&O Assessment Information Reassessment 08/20/2025 11: 58 AM Ian Bravo RN * Body Composition Question Answer Date of Assessment Author Weight Change (lbs) 0.07 08/18/2025 10:00 AM Katherine Ma RN * Patient Admission Handbook Question Answer Date of Assessment Author Patient handbook provided an d reviewed? Yes 08/16/2025 2:55 AM Lan Moser RN * Case Status Question Answer Date of Assessment Author Case Status Discharge ready 08/21/2025 10:40 AM Ingrid Jean-Baptiste RN * Assessment Information Question Answer Date of Assessment Author Assessment Information Shift Assessment 08/21/2025 8:1 7 AM Evie Guerra RN * MEWS Score Question Answer Date of Assessment Author MEWS Score 1 08/21/2025 11:01 AM Edith Mtz * Total Workload Score Answer Date of Assessment Author 24.63 08/21/2025 11:45 AM Edith Valera * P.O. Intake Question Answer Date of Assessment Author P.O. 222 08/20/2025 8:20 PM Katherine Miller RN Nutritional Supplement Yes 08/17/2025 1:00 PM Linda Quesada RN Percent Meals Eaten (%) 100 08/20/2025 8:20 P M Katherine Ibrahim RN Diet Type Oral diet as ordered 08/20/2025 8:20 PM Katherine Sood RN Feeding Able to feed self 08/20/2025 8:20 PM EST Katherine Caruso RN Appetite Good 08/19/2025 3:17 PM EST Dorene Frazier * Sepsis Risk Score Question Answer Date of Assessment Author Sepsis Risk Score 0.2 08/21/2025 11:45 AM EST Edith Madrid * Pt eligible for [facility] ([facility] only) Question Answer Date of Assessment Author Patient is eligible for the [facility] ([facility] only)? Y 08/16/2025 10:17 AM EST Naty Bkaer RN * Post Acute Care Treatment Preferences Question Answer Date of Assessment Author Treatment Preferences Other (provide comment) 08/16/2025 10:40 AM Ingrid Carrillo RN * Transition of Care Question Answer Date of Assessment Author All Required Information Sent to Post Acute Care Providers? No, Not Applicable 08/21/2025 10:43 AM Azeb Carrillo RN * Central Monitoring Question Answer Date of Assessment Author Monitoring Both ECG and SpO2 08/20/2025 8:31 PM Lucian Atkins Monitoring Action Continue to Monitor 08/20/2025 8:31 PM Lucian tAkins CMU Orders Current Yes 08/20/2025 8:31 PM Lucian Atkins Alarm Parameters Verified Yes 08/20/2025 8:31 PM Lucian Atkins Monitoring Strip Saved in Jame Yes 08/20/2025 8:31 PM Lucian Atkins Ectopy Frequency Frequent 08/17/2025 9:56 AM EST Aleyda Sidhu RN SpO2 Alarm Limit Low 88 08/19/2025 9:05 PM Astrid Ladd RN Pulse Oximetry Type Continuous 08/20/2025 8:31 PM Lucian Lu * Current Living Arrangements Question Answer Date of Assessment Author Frequency of Falls infrequent 08/16/2025 10:40 AM Ingrid Cuevas RN Current Living Arrangements Home 08/16/2025 10 :40 AM Ingrid Carrillo RN Type of Housing Apartment 08/16/2025 10:40 AM Ingrid Jean-Baptiste RN Who do you live with? Alone 08/16/2025 10:40 AM Ingrid Carrillo RN History of Falls? 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 Yes 08/16/2025 10:40 AM Ingrid Carrillo RN Marital Status 08/16/2025 10:40 AM Ingrid Carrillo RN Work History Part-time 08/16/2025 10:40 AM Ingrid Carrillo RN Current Mental Status Awake;Oriented to Person;Oriented to Place;Oriented to Time;Oriented to Situation 08/16/2025 10:40 AM Ingrid Carrillo RN Mental Status Prior to Admission Unable to Assess 08/16/2025 10:40 AM Ingrid Carrillo RN Activities of Daily Living Independent 08/16/2025 10:40 AM Ingrid Carrillo RN ADL Comments n/a 08/16/2025 10:40 AM Ingrid Carrillo RN Relative Search Completed No 08/16/2025 10:40 AM Ingrid Carrillo RN Assessment Information Obtained From: Patient;Chart Review 08/16/2025 10:40 AM Ingrid Carrillo RN Suicide History Comments n/a 025 10:40 AM Ingrid Carrillo RN Suicide Attempts No 08/16/2025 10:4 0 AM Ingrid Carrillo RN Number of children and their names 3 - Shawn Fajardo Angel 08/16/2025 10:40 AM Ingrid Carrillo RN * Support Systems Question Answer Date of Assessment Author Name of Guardian/POA/ Payee and Phone Number n/a 08/16/2025 10:40 AM Ingrid Carrillo RN Caregiver name/phone number n/a 08/16/2025 10:40 AM Ingrid Carrillo RN Times of available support Limited 28/03 hands on (add comment) 08/16/2025 10:40 AM Ingrid Carrillo RN Primary Caregiver Self 08/16/2025 10: 40 AM Ingrid Carrillo RN Next of Kin Miguel A - Shawn FajardoNicolasa ([phone]) 08/16/2025 10:40 AM Ingrid Carrillo RN Next of Kin Phone Number Miguel A - Candelaria newsome Nicolasa Escobar ([phone]) 08/16/2025 10:40 AM Ingrid Carrillo RN Legal Status N/A 08/16/2025 10:40 AM Ingrid Carrillo RN Next of Kin Relationship Daughter;Son 025 10:40 AM Ingrid Carrillo RN * Interventions Question Answer Date of Assessment Author Date of Service [address] 08/16/2025 10:39 AM Ingrid Carrillo RN Time Spent with Patient (minutes) 20 08/16/2025 10:39 AM Ingrid Carrillo RN Role RN Care Coordination 08/16/2025 10:39 AM Ingrid Carrillo RN Interventions Assessment 08/16/2025 10:39 AM Ingrid Carrillo RN * Pertinent Medications Question Answer Date of Assessment Author Anticoagulation therapy Yes 08/16/2025 10:40 AM Ingrid Carrillo RN New Diabetic No 08/16/2025 10:40 AM Ingrid Schuler RN Anticoagulant (Name of Drug) ASA 08/16/2025 1 0:40 AM Ingrid Carrillo RN * Barriers to Discharge Question Answer Date of Assessment Author Barriers to Discharge Transportation 08/16/2025 10:40 AM Ingrid Carrillo, [place] * HIDDEN-Infusion Dashboard Answer Date of Assessment Author 109 08/21/2025 7:19 AM Sarah uGallpa * Home medication infusion pump Question Answer Date of Assessment Author Does patient have a home medication infusion pump? No 08/16/2025 2:59 AM uLis Moser, [place] * Diabetes Survey Questions Question Answer Date of Assessment Author Do you have Diabetes? No 08/16/2025 2:50 AM Luis Moser, [place] * Status & Connection to [facility] Services Question Answer Date of Assessment Author Are you a ? No 08/16/2025 10:40 AM Ingrid Cuevas RN * Epic Fall Predictive Model (EFPM) Score Answer Date of Assessment Author 22.5 08/21/2025 8:01 AM EST Batch Job , Background User * Fall Risk Question Answer Date of Assessment Author Fall Risk Precautions In Place [place] 08/21/2025 8:17 AM Evie Guerra R N Other reasons for High Fall Precautions Clinical Judgement 08/21/2025 8:17 AM Evie Guerra R N * Urine Output/Observations Question Answer Date of Assessment Author Urine 550 08/21/2025 3:45 AM Nato Jeffers Urine Occurrence 1 08/21/2025 3:45 AM EST Nato Pichardo * Stool Output/Observations Question Answer Date of Assessment Author Stool 0 08/19/2025 6:21 AM EST Vinnie Osei * Output Activities Question Answer Date of Assessment Author Activity Sitting in bed;Other (Comment) 08/21/2025 8:54 AM Feli Guallpa * Agitation Risk Factor Scoring Tool Question Answer Date of Assessment Author Hx of Aggression 0 08/21/2025 6:01 AM EST B atch Job, Background User Hx of Bipolar Disorder 0 08/21/2025 6:01 AM EST Batch Job, Background User Hx of Dementia 0 08/21/2025 6:01 AM EST Bat ch Job, Background User Positive Drug Screen in Past 180 Days 0 08/21/2025 6:01 AM EST Batch Job, Backgr ound User Positive Drug Screen 0 08/21/2025 6:[address] Batch Job, Background User ED LOS >24H 0 08/21/2025 6:01 AM EST Batch Job, Background User Means of Arrival- Escorted by Police 0 08/21/2025 6:01 AM EST Batch Job, Backgr ound User Previous AMA 0 08/21/2025 6:01 AM EST Batch Job, Background User Hx of Violent Restraint or Seclusion 0 08/21/2025 6:01 AM EST Batch Job, Backgr ound User Chief Complaint- Altered Mental Status 0 08/21/2025 6:01 AM EST Batch Job, Backgr ound User Blood Alcohol > Legal Limit 0 08/21/2025 6: 01 AM EST Batch Job, Background User Agitation Risk Factors Total Score 0 08/21/2025 6:01 AM EST Batch Job, Backgr ound User * Risk Category Answer Date of Assessment Author Average 08/21/2025 10:08 AM EST Interfac e, Doc Flowsheet In * Risk Score Answer Date of Assessment Author 67 08/21/2025 10:08 AM EST Interfac e, Doc Flowsheet In * Vital Signs Question Answer Date of Assessment Author Heart Rate Source Monitor 08/18/2025 3:58 PM Katherine Madera RN * Oxygen Therapy Question Answer Date of Assessment Author CO2 (mm Hg) 1 08/18/2025 10:35 AM Katherine Trevino RN * Height and Weight Question Answer Date of Assessment Author Height 60 08/16/2025 2:30 AM Luis English RN BSA (Calculated - sq m) 1.71 08/16/2025 2:30 A M Luis Moser RN * Gastrointestinal Question Answer Date of Assessment Author [place] Date [address] 08/20/2025 8:36 AM EST Ian Araujo RN Gastrointestinal (WDL) WDL 08/20/2025 8:20 PM EST Katherine Caruso RN * Peripheral Vascular Question Answer Date of Assessment Author Peripheral Vascular (WDL) WDL 08/20/2025 8:20 PM Katherine Ibrahim RN Capillary Refill Less than 3 seconds (All extremities) 08/21/2025 8:17 AM EST Evie Brown RN Pulses R radial;L radial;R pedal;L pedal 08/21/2025 8:17 AM Evie Guerra RN Cyanosis None 08/21/2025 8:17 AM Evie Zhang RN * RULynne Neurovascular Assessment Question Answer Date of Assessment Author R Radial Pulse +2 08/21/2025 8:17 AM Evie Sheridan RN * LUE Neurovascular Assessment Question Answer Date of Assessment Author L Radial Pulse +2 08/21/2025 8:17 AM Evie Sheridan RN * RLE Neurovascular Assessment Question Answer Date of Assessment Author R Pedal Pulse +2 08/21/2025 8:17 AM Evie Still RN * LLE Neurovascular Assessment Question Answer Date of Assessment Author L Pedal Pulse +2 08/21/2025 8:17 AM Evie Still RN * Musculoskeletal Question Answer Date of Assessment Author RUE Full movement 08/21/2025 8:17 AM Evie Still RN RLE Full movement 08/21/2025 8:17 AM Evie Still RN LUE Full movement 08/21/2025 8:17 AM Evie Still RN LLE Full movement 08/21/2025 8:17 AM Evie Still RN * Urine Assessment Question Answer Date of Assessment Author Urine Source Urethra 08/21/2025 8:17 AM Evie Zhang RN Urine Color ANDERSON 08/21/2025 8:17 AM Evie Zhang RN Urine Appearance ANDERSON 08/21/2025 8:17 AM Evie Vides RN Urine Odor ANDERSON 08/21/2025 8:17 AM Evie Zhang RN Urinary Incontinence No 08/21/2025 8:17 AM E Evie Sotomayor RN * Anus/Rectum Question Answer Date of Assessment Author Anus/Rectum (WDL) WDL 08/20/2025 8:36 AM Ian Bravo RN * Psychosocial Question Answer Date of Assessment Author Patient Behaviors/Mood Calm;Cooperative 08/21/2025 8:1 7 AM Evie Guerra RN Needs Expressed Physical 08/21/2025 8:17 AM Evie Polanco RN Rest/Sleep for Patient Fair 08/20/2025 8:36 AM Ian Bravo RN * Sunny Fall Risk Question Answer Date of Assessment Author History of Falling 0 08/20/2025 8:20 PM Katherine Ibrahim RN Secondary Diagnosis 15 08/20/2025 8:20 PM Katherine Akers RN Ambulatory Aids 0 08/20/2025 8:20 PM Katherine Cain Ma, RN Intravenous Therapy/Heparin/ Saline Lock 20 08/20/2025 8:20 PM Katherine Ibrahim RN Gait/Transferring 0 08/20/2025 8:20 PM Katherine Ibrahim RN Mental Status 0 08/20/2025 8:20 PM Katherine Kidd RN Morse Fall Risk Score 35 08/20/2025 8:20 PM Katherine Ibrahim RN * Herbie Scale Question Answer Date of Assessment Author Sensory Perceptions 4 08/21/2025 8:17 AM Evie Hare RN Moisture 4 08/21/2025 8:17 AM Evie Zhang RN Activity 4 08/21/2025 8:17 AM Evie Zhang RN Mobility 4 08/21/2025 8:17 AM Evie Zhang RN Nutrition 3 08/21/2025 8:17 AM Evie Zhang RN Friction and Shear 3 08/21/2025 8:17 AM Evie Guerra RN Herbie Scale Score 22 08/21/2025 8:17 AM Evie Guerra RN * Cardiac Question Answer Date of Assessment Author Telemetry Electrodes Intact 08/21/2025 8:17 AM Evie Shaw RN Cardiac Rhythm SR 08/21/2025 8:17 AM Evie Sheridan RN Telemetry Box Number [id number] 08/21/2025 8:17 AM vEie Shaw RN Cardiac (WDL) X 08/20/2025 8:20 PM Katherine Gilman RN Cardiac Regularity Regular 08/20/2025 8:36 AM Ian Bravo RN Heart Sounds S1, S2 08/21/2025 8:17 AM Evie Zhang RN Telemetry/Weigher Alloy Yes 08/21/2025 8:17 AM Evie Guerra RN Jugular Venous Distention (JVD) No 8:17 AM Evie Guerra RN Cardiac Symptoms None 08/21/2025 8:17 AM EST W Evie rodriguez RN * Respiratory Question Answer Date of Assessment Author Bilateral Breath Sounds Clear;Diminished 08/21/2025 8: 17 AM Evie Guerra RN R Breath Sounds Clear 08/20/2025 8:36 AM EST Ian Huber RN L Breath Sounds Clear 08/20/2025 8:36 AM EST Ian Huber RN Respiratory Pattern Regular;Unlabored 08/21/2025 8:17 AM Evie Guerra RN Chest Assessment Chest expansion symmetrical 08/21/2025 8:17 AM Evie Guerra RN Respiratory Additional Assessments No 08/19/2025 8:01 AM EST Belinda Roman RN * Respiratory (WDL) Answer Date of Assessment Author X 08/20/2025 8:20 PM EST Katherine Caruso RN * Additional Assessments Question Answer Date of Assessment Author Pulse 75 08/21/2025 8:16 AM EST Annamarie Manrique, PADILLA SpO2 91 08/21/2025 8:16 AM Annamarie Snyder, [place] * Pulmonary Volume Expansion Question Answer Date of Assessment Author Color Green 08/18/2025 10:03 AM EST Albert Delong, PADILLA Amount Small 08/18/2025 10:03 AM EST Albert Delong RRT Consistency Thick;Thin 08/18/2025 10:03 AM EST Albert Delong RRT Pulm Vol Expansion Goal 1200 08/21/2025 8:16 A M Annamarie Guzman, PADILLA Pulm Vol Expansion Achieved 199908/21/2025 8: 16 AM Annamarie Guzman RRT * Inhaled Therapy Tx Question Answer Date of Assessment Author Pre-Treatment Pulse 75 08/21/2025 8 :16 AM Annamarie Guzman, PADILLA Pre-Treatment Respirations 16 08/21/2025 8:16 AM Annamarie Guzman, PAD[place] Comment rinsed 08/19/2025 11:28 AM EST Saray Amor, [place] Sputum Absent 08/21/2025 8:16 AM EST Annamarie Obrien, [employer] Medications Asmanex;Ellipta Anora 08/21/2025 8:16 AM EST Annamarie Obrien, [employer] Delivery Source DPI 08/21/2025 8:16 AM EST Annamarie Obrien, [employer] Post-Treatment Pulse 78 08/20/2025 9:27 AM EST Mitch Yang, [employer] Post-Treatment Respirations 17 08/20/2025 9:27 AM EST Mitch Yang, [employer] Position High fowlers 08/21/2025 8:16 AM EST Annamarie Obrien, [employer] Treatment Tolerance Tolerated fairly well 2024 8:16 AM EST Annamarie Obrien, [employer] * Secretion Removal Question Answer Date of Assessment Author Secretion Removal Chest Site Full range 08/20/2025 12:55 PM EST Fatoumata Yang S, [employer] Secretion Removal Duration 10 08/20/2025 12: 55 PM Mitch Toney, [employer] * Vitals Question Answer Date of Assessment Author BP 109/64 08/21/2025 7:19 AM LINCOLN Savelieser tucker Feli Temp 97.3 08/21/2025 7:19 AM EST Alphonso tucker Feli O2 Flow Rate (L/min) 2 08/21/2025 3:45 AM Nato Garcia * Esmolol Drip Question Answer Date of Assessment Author Volume (mL) Esmolol 5.81 08/15/2025 5:11 PM Latosha Watkins, [place] * Height and Weight Question Answer Date of Assessment Author Percent Weight Change Since 0 025 10:00 AM Katherine Madera, [place] * Advance Directives (For Healthcare) Question Answer Date of Assessment Author Advance Directive Patient does not hav e advance directive 08/16/2025 2:55 AM Luis Moser, [place] Healthcare Agent Appointed No 08/16/2025 2:55 AM Luis Moser, [place] Pre-existing DNR/DNI Order No 08/16/2025 2:55 AM Luis Moser, [place] Patient Requests Assistance No 08/16/2025 2:55 AM Luis Moser, [place] * Discharge Planning Question Answer Date of Assessment Author Who does patient live with? Alone 08/16/2025 2:58 AM Luis Moser RN Support Systems Friends/neighbors;Fa mojgan sid members 08/16/2025 2:58 AM Luis Moser RN Type of Residence Private residence 08/16/2025 2 :58 AM Luis Moser RN In the past 12 months has the electric, gas, oil, or water company threatened to shut off services in your home? No 08/16/2025 2:58 AM Luis Moser RN In the last 12 months, was there a time when you were not able to pay the mortgage or rent on time? No 08/16/2025 2:58 AM Luis Moser RN In the past 12 months, how many times have you moved where you were living? 0 08/16/2025 2:58 AM Luis Moser RN At any time in the past 12 months, were you homeless or living in a fpc (including now)? No 08/16/2025 2:58 AM Luis Moser RN In the past 12 months, has lack of transportation kept you from medical appointments or from getting medications? No 08/16/2025 2:58 AM Luis Moser RN In the past 12 months, has lack of transportation kept you from meetings, work, or from getting things needed for daily living? No 08/16/2025 2:58 AM Luis Moser RN * Nutrition Screen Question Answer Date of Assessment Author Diabetic Education Needed 2 08/16/2025 3:04 AM Luis Moser RN Unplanned Weight Gain in Last Three Months 2 08/16/2025 3:04 AM Lan Moser RN Unplanned Weight Loss in Last Three Months 1 08/16/2025 3:04 AM Lan Moser RN Poor Oral Intake for Four or More Days Prior to Admission 1 08/16/2025 3:04 AM Lan Moser RN Difficulty Chewing or Swallowing 1 08/16/2025 3:04 AM Lan Moser RN Pressure Ulcer or Non-Healing Wound 2 08/16/2025 3:04 AM Lan Moser RN Home Tube Feeding or Total Parenteral Nutrition (TPN) 2 08/16/2025 3:04 AM Luis Quick RN Dietitian Consult Needed 1 08/16/2025 3:04 AM Luis Moser RN Vomiting/Diarrhea/Nausea Greater Than 3 Days 2 08/16/2025 3:04 AM Lan Moser RN Within the past 12 months, you worried that your food would run out before you got the money to buy more. Sometimes true 08/16/2025 3:04 AM Luis Quick RN Within the past 12 months, the food you bought just didn't last and you didn't have money to get more. Sometimes true 08/16/2025 3:04 AM Luis Moser RN * Abuse/Trauma History Question Answer Date of Assessment Author Physical Abuse Denies 08/16/2025 2:55 AM Luis Ann RN Verbal Abuse Denies 08/16/2025 2:55 AM Luis English RN Sexual Abuse No 08/16/2025 2:55 AM Luis English RN Neglect Denies 08/16/2025 2:55 AM Luis English RN * Values / Beliefs Question Answer Date of Assessment Author Cultural Requests During Hospitalization No 08/16/2025 2:55 AM Lan Moser RN Spiritual Requests During Hospitalization No 08/16/2025 2:55 AM Lan Moser RN * Stool Assessment Question Answer Date of Assessment Author Stool Occurrence 0 08/20/2025 8:36 AM Ian Olvera RN Stool Source Rectum 08/21/2025 8:17 AM Evie Zhang RN Bowel Incontinence No 08/21/2025 8:17 AM Evie Guerra RN * Genitourinary Question Answer Date of Assessment Author Genitourinary (WDL) WDL 08/20/2025 8:20 PM Katherine Akers RN * Neurological Question Answer Date of Assessment Author Level of Consciousness Alert 8:17 AM Evie Guerra RN Orientation Level Oriented X4 08/21/2025 8:1 7 AM Evie Guerra RN Cognition Ability to abstract;Appropriate judgement;Appropriate safety awareness;Appropriate attention/concentration; Appropriate for developmental age;Follows simple commands 08/21/2025 8:17 AM Evie Guerra RN Speech Clear 08/21/2025 8:17 AM Evie Guerra RN Neuro (WDL) WDL 08/20/2025 8:20 PM Katherine Ibrahmi RN Neuro Additional Assessments Burchard Coma Scale 08/21/2025 8:17 AM Evie Guerra RN R Hand Lining Stamper Moderate 08/21/2025 8:17 AM Evie Guerra RN L Hand Lining Stamper Moderate 08/21/2025 8:17 AM Evie Guerra RN R Foot Dorsiflexion Moderate 08/21/2025 8 :17 AM Evie Guerra RN L Foot Dorsiflexion Moderate 08/21/2025 8 :17 AM Evie Guerra RN R Foot Plantar Flexion Moderate 8:17 AM Evie Guerra RN L Foot Plantar Flexion Moderate 8:17 AM Evie Guerra RN Neuro Symptoms None 08/21/2025 8:17 AM Evie Guerra RN Pupil Assessment No 08/21/2025 8:17 AM Evie Guerra RN Motor Function/Sensation Assessment Lining Stamper;Dorsiflexion;Planta r flexion 08/21/2025 8:17 AM Evie Guerra RN * Screening Question Answer Date of Assessment Author Safe in Home Yes 08/15/2025 4:17 PM Latosha Bull RN Are you in immediate danger? No 08/15/2025 4 :17 PM Latosha Bull RN * Patient Belongings Question Answer Date of Assessment Author Does The Patient Have Belongings Yes 08/16/20 3:06 AM Luis Moser RN * Safe Environment Question Answer Date of Assessment Author Patient Monitor N/A 08/21/2025 8:17 AM Evie Polanco RN Safety Equipment at Bedside Ambu bag/mask 08/21/2025 8 :17 AM Evie Guerra RN * Mobility Question Answer Date of Assessment Author Distance Ambulated (ft) 8 08/20/2025 11:40 AM Ian Bravo RN Ambulation Response Tolerated well 08/20/2025 11:40 AM Ian Bravo RN Assistive Device None 08/21/2025 8:17 AM Evie Vides RN Transport Method Bed;Cart;Stretcher 08/21/2025 8:17 AM Evie Guerra RN Level of Assistance Independent 08/21/2025 8:17 AM Evie Hare RN Head of Bed Self regulated 08/21/2025 8:17 AM Evie Sheridan RN * Hygiene Question Answer Date of Assessment Author Skin Care Foam skin cleanser 08/19/2025 11 :13 AM Dorene Andrade Bath/Shower Requests different time 08/21/2025 8:17 A M Evie Guerra RN Oral Care Teeth brushed 08/19/2025 11:13 AM Dorene Andrade Level of Assistance Independent 08/21/2025 8:17 AM Evie Hare, DAYRON * Precautions Question Answer Date of Assessment Author Precautions Bleeding 08/21/2025 8:17 AM Evie Zhang RN * Family/Significant Other Communication Question Answer Date of Assessment Author Overnight Visitors No 08/19/2025 8:01 AM Belinda Phillips RN Family/Support Person Visiting 08/17/2025 10:10 AM Linda Quesada RN * Comfort and Environment Interventions Question Answer Date of Assessment Author Comfort Repositioned;Pillow support 08/21/2025 8: 17 AM Evie Guerra RN * Entertainment Question Answer Date of Assessment Author Entertainment Activities Television;Phone 08/21/2025 8 :17 AM Evie Guerra RN * Adult IBW/VT Calculations Question Answer Date of Assessment Author Low Range Vt 4 mL MALE 200 08/16/2025 2:30 AM Luis Moser RN Low Range Vt 4 mL FEMALE 182 08/16/2025 2:30 AM Luis Moser RN IBW/kg (Calculated) Male 50 08/16/2025 2:30 AM Luis Moser RN Low Range Vt 6 mL MALE 300 08/16/2025 2:30 AM Luis Moser RN Moderate Range Vt 8 mL MALE 400 08/16/2025 2: 30 AM Luis Moser RN High Range Vt 10 mL MALE 500 08/16/2025 2:30 AM Luis Moser RN IBW/kg (Calculated) FEMALE 45.5 08/16/2025 2:3 0 AM Luis Moser RN Low Range Vt 6 mL FEMALE 273 08/16/2025 2:30 AM Luis Moser RN Moderate Range Vt 8 mL FEMALE 364 08/16/2025 2:30 AM Luis Moser RN High Range Vt 10 mL FEMALE 455 08/16/2025 2:3 0 AM Luis Moser RN * Oxygen Therapy/Pulse Ox Question Answer Date of Assessment Author O2 Device None (Room air) 08/21/2025 8:16 AM Annamarie Hunt, PADILLA O2 Therapy Room air 08/21/2025 8:16 AM EST Annamarie Manrique, PADILLA * ADL Screening Question Answer Date of Assessment Author Is this person blind or does he/she have serious difficulty seeing even when wearing glasses? No 08/16/2025 2:53 AM Lan Moser RN Is this person deaf or does he/she have serious difficulty hearing? No 08/16/2025 2:53 AM Lan Moser RN Does this person have serious difficulty walking or climbing stairs? (5 years old or older) No 08/16/2025 2:53 AM Lan Moser RN Does this person have difficulty dressing or bathing? (5 years old or older) Yes 08/16/2025 2:53 AM Lan Moser RN Because of a physical, mental, or emotional condition, do you have serious difficulty concentrating, remembering, or making decisions? (5 years old or older No 08/16/2025 2:53 AM Lan Moser RN Because of a physical, mental, or emotional condition, do you have difficulty doing errands alone such as visiting a doctor's office or shopping? (15 years old or older) No 08/16/2025 2:53 AM Lan Moser RN Is this person able to express their needs and desires? Yes 08/16/2025 2:53 AM Lan Moser RN Patient's Vision Adequate to Safely Complete Daily Activities 1 08/16/2025 2:53 AM Lan Moser RN Patient's Judgement Adequate to Safely Complete Daily Activities 1 08/16/2025 2:53 AM Lan Moser RN Patient's Memory Adequate to Safely Complete Daily Activities 1 08/16/2025 2:53 AM Lan Moser RN Patient Able to Express Needs/Desires 1 08/16/2025 2:53 AM Lan Moser RN Dressing Independent 08/16/2025 2:53 AM Luis English RN Grooming Independent 08/16/2025 2:53 AM Luis English RN Feeding Independent 08/16/2025 2:53 AM Luis English RN Bathing Independent 08/16/2025 2:53 AM Luis English RN Toileting Independent 08/16/2025 2:53 AM Luis English RN In/Out Bed Independent 08/16/2025 2:53 AM Luis English RN Walks in Home Independent 08/16/2025 2:53 AM Luis Haider RN Weakness of Legs None 08/16/2025 2:53 AM Luis Newby RN Weakness of Arms/Hands None 08/16/2025 2:53 AM Luis Moser RN Hearing - Right Ear Functional 08/16/2025 2:53 AM Luis Denson RN Hearing - Left Ear Functional 08/16/2025 2:53 AM Luis Moser RN * Consults Question Answer Date of Assessment Author Spiritual Care Consult Needed No 08/16/2025 2:55 AM Lan Moser RN Social Services Consult Needed Yes (Comment) 08/16/2025 2:55 AM Lan Moser RN * Agitated Screen Question Answer Date of Assessment Author Is patient displaying signs of agitation? No 08/15/2025 3:58 PM Shandra Casanova RN * SAMUEL 1 Fall Risk Assessment Question Answer Date of Assessment Author Presented to ED because of Fall 0 4:14 PM Latosha Bull RN Age > 70 Years 0 08/15/2025 4:14 PM Latosha Villagomez RN Altered Mental Status 0 08/15/2025 4:14 PM Latosha Bull RN Impaired Mobility 0 08/15/2025 4:14 PM Latosha Bull RN Nurse Judgement 1 08/15/2025 4:14 PM Latosha Felix RN * Samuel Fall Risk Score Answer Date of Assessment Author 1 08/15/2025 4:14 PM Yesika Bull RN * [place]-Suicide Severity Rating Scale (C-SSR) Part 1 Question Answer Date of Assessment Author In the past month, have you wished you were or wished you could go to sleep and not wake up? No 08/15/2025 3:57 PM Shandra Casanova RN In the past month, have you actually had any thoughts of killing yourself? No 08/15/2025 3:57 PM Shandra Casanova RN * [place]-Suicide Severity Rating Scale (C-SSR) Part 2 Question Answer Date of Assessment Author Have you ever done anything, started to do anything, or prepared to do anything to end your life? No 08/15/2025 3:57 PM Shandra Casanova RN * Rating Scale Answer Date of Assessment Author LOW RISK 08/15/2025 3:57 PM Shandra Casanova RN * [facility]CH RISK OF UNPLANNED READMISSION Answer Date of Assessment Author 13.19 08/21/2025 11:49 AM Odell Membreno * Influenza Vaccine Screen - June through November Question Answer Date of Assessment Author Have you had an influenza vaccine this season? Yes 08/16/2025 3:00 AM Maximus Moser RN * AUDIT-C Score Answer Date of Assessment Author 4 08/16/2025 2:53 AM Luis Lees RN * Intimate Partner Violence Question Answer Date of Assessment Author Within the last year, have y ou been humiliated or emotionally abused in other ways by your partner or ex-partner? No 08/16/2025 2:55 AM Mojgan Moser RN Within the last year, have y ou been afraid of your partner or ex-partner? No 08/16/2025 2:55 AM Lan Moser RN Within the last year, have y ou been raped or forced to have any kind of sexual activity by your partner or ex-partner? No 08/16/2025 2:55 AM Mojgan Moser RN Within the last year, have y ou been kicked, hit, slapped, or otherwise physically hurt by your partner or ex-partner? No 08/16/2025 2:55 AM Luis Lees RN * Alcohol Use Question Answer Date of Assessment Author Q1: How often do you have a drink containing alcohol? 2-3 times a week 08/16/2025 2:53 AM Lan Moser RN Q2: How many drinks containing alcohol do you have on a typical day when you are drinking? 3 or 4 08/16/2025 2:53 AM Mojgan Moser RN Q3: How often do you have six or more drinks on one occasion? Never 08/16/2025 2:53 AM Lan Moser RN * Call In Referral Question Answer Date of Assessment Author Reason for Referral CT surgery eval, gat ed CTA 08/15/2025 1:10 PM Binta Ballesteros MD Referring Provider carolann 08/15/2025 1:10 PM Binta Ballesteros MD * Acuity/Destination Question Answer Date of Assessment Author ED Destination Critical Care/Trauma 08/15/2025 4:17 PM Latosha Bull RN Patient Acuity Two 08/15/2025 4:17 PM Latosha Villagomez RN Triage 2 Complete Triage complete 08/15/2025 4:17 PM Latosha Guadalupe RN * Respiratory Assessment Question Answer Date of Assessment Author Cough None 08/21/2025 8:16 AM EST Annamarie Manrique, [employer] Sputum Amount None 08/20/2025 4:25 PM EST Mitch Benitez, [employer] Sputum Color ANDERSON 08/20/2025 9:27 AM EST Mitch Villarreal, [employer] Sputum Consistency Thick;Thin 08/18/2025 8:14 AM EST Albert Herrera, [employer] Sputum How Obtained Spontaneous cough 08/18/2025 8:14 AM EST Albert Herrera, [employer] Position Cazares's 08/21/2025 8:16 AM EST Lima on, Crystal D, [employer] Breath Sounds Pre-Treatment Right Clear;Diminished 08/19/2025 11:28 AM EST Saray Amor, R RT Breath Sounds Post-Treatment Right Diminished;Clear 08/20/2025 4:25 PM EST Fatoumata Yang in S, [employer] Breath Sounds Pre-Treatment Left Clear;Diminished 08/19/2025 11:28 AM EST Saray Amor, R RT Breath Sounds Post-Treatment Left Diminished;Clear 08/20/2025 4:25 PM EST Katerin Yang n S, [employer] * Pacemaker Answer Date of Assessment Author No 08/21/2025 8:17 AM EST Janis Brown RN * Specimen Collection Status Question Answer Date of Assessment Author Specimen Collection Lab 08/21/2025 8:17 AM Evie Hare RN * Temp (in Celsius) Answer Date of Assessment Author 36.3 08/21/2025 7:19 AM EST Sarah Hernandez * Comprehensive Pain Assessment (with every routine assessment) Question Answer Date of Assessment Author Pain Score 00 - Patient Asleep 08/21/2025 4:01 AM Katherine Akers RN Pain Location Arm 08/20/2025 10:46 AM Ian Bravo RN Pain Orientation Distal 08/20/2025 10:4 6 AM Ian Bravo RN Pain Intervention(s) Medication (See eMAR) 08/17/2025 8:21 AM EST Linda Spears RN Pain Descriptors Burning 08/20/2025 10:4 6 AM Ian Bravo RN Pain Frequency Intermittent 08/17/2025 8:21 AM EST Linda Almonte RN Patient's Stated Pain Goal No pain 08/21/2025 8:17 AM Evie Guerra R N Multiple Pain Sites No 08/17/2025 1 2:20 PM Linda Quesada RN Pain Type Acute pain 08/20/2025 10:46 AM Ian Bravo RN Clinical Progression Gradually improving 08/17/2025 8: 21 AM Linda Quesada RN * Integumentary Question Answer Date of Assessment Author Skin Color Appropriate for ethnicity 08/21/2025 8:17 AM Evie Guerra RN Skin Condition/Temp Warm;Dry 08/21/2025 8:17 AM Evie Hare RN Skin Integrity Intact 08/21/2025 8:17 AM Evie Sheridan RN Skin Turgor Non-tenting 08/20/2025 8:20 PM Katherine Miller RN Integumentary (WDL) WDL 08/20/2025 8:20 PM Katherine Akers RN Skin Location BUE 08/20/2025 8:36 AM Ian Holt RN * Weights Question Answer Date of Assessment Author Weight 2428.8 08/18/2025 10:00 AM Katherine Trevino RN * Core Measure Documentation Question Answer Date of Assessment Author Was the Influenza Vaccine Sc reening Completed? Yes 08/21/2025 10:57 AM Deisy Smith R N Was the influenza vaccine ordered? No 2024 10:57 AM Deisy Smith RN * Is This a Core Measure Patient? Question Answer Date of Assessment Author Is this a myocardial infarct ion patient? No 08/21/2025 10:57 AM Deisy Smith R N * Discharge Planning Question Answer Date of Assessment Author Discharge Disposition Home 08/16/2025 12:14 PM Ingrid Carrillo RN * Transportation Information Question Answer Date of Assessment Author ETA of Transport d/c 08/21/2025 10:40 AM Ingrid Carrillo RN Transfer Mode/Level of Care Taxi 08/21/2025 11 :29 AM Ingrid Carrillo RN * Patient/Family Involvement Question Answer Date of Assessment Author DU/CONSUELO Name and phone # Ingrid Lamarnings MSN, RN/CM [phone] 08/21/2025 11:29 AM Ingrid Carrillo RN Family Member Notified at Discharge N/A 08/21/2025 11:29 AM Ingrid Carrillo RN Family Member Name and Relationship Notified at Discharge n/a 08/21/2025 11:29 AM Ingrid Carrillo RN Family Contact Number n/a 08/21/2025 11:29 AM Ingrid Carrillo RN Role of the Bellows Assembler Explained Yes 08/21/2025 11:29 AM Ingrid Carrillo RN Role of the Funeral Service Apprentice Explained No Home Health Needs 08/21/2025 11:29 AM Ingrid Carrillo RN Patient/Family Informed of Discharge Plan Yes 08/21/2025 11:29 AM Ingrid Carrillo RN Plan Reviewed With Patient, Family, or Significant Other Yes 08/21/2025 11:29 AM Ingrid Carrillo RN Patient or family are unable or unavailable to participate in patient's discharge plan No 08/21/2025 11:29 AM Ingrid Carrillo RN Patient and or family are aware and in agreement with the discharge plan Yes 08/21/2025 11:29 AM Ingrid Carrillo RN Plan reviewed with MD and other members of the health care team Yes 08/21/2025 11:29 AM Ingrid Carrillo RN Care Plan Completed Yes 08/21/2025 1 1:29 AM Ingrid Carrillo RN * LACE+ Score Answer Date of Assessment Author 70 08/21/2025 11:49 AM Odell Membreno * Triage Start Question Answer Date of Assessment Author Triage 1 Start Start 08/15/2025 3:55 PM Shandra Suh Cha, DAYRON * Alcohol Level Question Answer Date of Assessment Author Alcohol Level obtained? No 08/16/2025 1:44 P M Ingrid Carrillo RN * Audit Questionnaire Question Answer Date of Assessment Author How often do you have a drin k containing alcohol? 3 08/16/2025 1:44 PM Ingrid Carrillo RN Total Score 4 08/16/2025 1:44 PM Ingrid Meyers RN How many drinks do you have? 1 08/16/2025 1 :44 PM Ingrid Carrillo RN How often do you have 5 or m ore drinks? 0 08/16/2025 1:44 PM Ingrid Carrillo RN How often have you been unab le to stop drinking? 0 08/16/2025 1:44 PM Ingrid Carrillo RN How often have you failed to do what was expected? 0 08/16/2025 1:44 PM Ingrid Carrillo RN How often have you needed a first drink in the morning? 0 08/16/2025 1:44 PM Stephen Carrillo RN How often do you have guilt or remorse? 0 08/16/2025 1:44 PM Ingrid Carrillo RN How often have you been unab le to remember what happened? 0 08/16/2025 1:44 PM Génesis Carrillo RN Have you or someone else bee n injured due to your drinking? 0 08/16/2025 1:44 PM Ingrid Sánchez RN Have others been concerned a bout your drinking? 0 08/16/2025 1:44 PM Ingrid Carrillo RN * Intervention: Score greater than or equal to 8 (greater than or equal to 4 for women and ages 16-21& 65 or older) indicates a strong likelihood of hazardous or harmful alcohol consumption Question Answer Date of Assessment Author Unable to Complete Audit? NA 08/16/2025 1:44 PM Ingrid Carrillo RN * P.O. Intake Question Answer Date of Assessment Author Percent Meals Eaten (%) 100 08/20/2025 8:20 P M Katherine Ibrahim RN * Patient's Post-Discharge Goals Question Answer Date of Assessment Author Patient's Post-Discharge goals To d/c home safely once acute medical needs have been met. 08/16/2025 10:40 AM Ingrid Carrillo RN * Calculated Energy Needs Question Answer Date of Assessment Author Pilar Little Equation (RMR) 1,185.06 08/18/2025 10:00 AM Katherine Madera RN Fluid Requirements (mL) 2,065.68 08/18/2025 10:00 AM Katherine Madera RN * Anthropometrics Question Answer Date of Assessment Author BMI (Calculated) 29.63 08/16/2025 2:30 AM EST Luis Núñez RN * Community Services at Discharge Question Answer Date of Assessment Author Community Services at Home post discharge Not Applicable 08/21/2025 10:40 AM EST Azeb Banks RN * Urine Output/Observations Question Answer Date of Assessment Author Urine Occurrence 1 08/21/2025 3:45 AM EST Nato Pichardo * Output Activities Question Answer Date of Assessment Author Activity Sitting in bed;Other (Comment) 08/21/2025 8:54 AM EST Feli Hernandez * Height and Weight Question Answer Date of Assessment Author Height 60 08/16/2025 2:30 AM Luis English RN BMI (Calculated) 29.7 08/16/2025 2:30 AM EST Luis Núñez RN * Gastrointestinal Question Answer Date of Assessment Author Last BM Date 18424 08/20/2025 8:36 AM EST Ian Araujo RN * Musculoskeletal Question Answer Date of Assessment Author RUE Full movement 08/21/2025 8:17 AM Evie Still RN RLE Full movement 08/21/2025 8:17 AM Evie Still RN LUE Full movement 08/21/2025 8:17 AM Evie Still RN LLE Full movement 08/21/2025 8:17 AM Evie Still RN Musculoskeletal (WDL) WDL 08/20/2025 8:20 PM EST Katherine Caruso RN Musculoskeletal Additional Assessments No 08/21/2025 8:17 AM EST Evie Brown R N * Psychosocial Question Answer Date of Assessment Author Patient Behaviors/Mood Calm;Cooperative 08/21/2025 8:1 7 AM EST Evie Brown RN * Pulmonary Volume Expansion Question Answer Date of Assessment Author Number of breaths 10 08/21/2025 8:16 AM EST Annamarie Obrien, [employer] Color Green 08/18/2025 10:03 AM EST Albert Delong, [employer] Amount Small 08/18/2025 10:03 AM Albert Ordaz, [employer] Consistency Thick;Thin 08/18/2025 10:03 AM Albert Ordaz, [employer] Treatment Tolerance Tolerated well 08/21/2025 8:16 AM Annamarie Guzman, [employer] Pulm Vol Expansion Goal 1200 08/21/2025 8:16 A M EST Annamarie Obrien, [employer] Pulm Vol Expansion Achieved 199908/21/2025 8:16 AM Annamarie Guzman, [employer] Comments pt sleeping 08/19/2025 9:07 PM Erika Fair RRT * Inhaled Therapy Tx Question Answer Date of Assessment Author Sputum Absent 08/21/2025 8:16 AM EST Annamarie Manrique, PADILLA * Vitals Question Answer Date of Assessment Author BP 109/64 08/21/2025 7:19 AM EST Feli Park * Nutrition Prognosis Question Answer Date of Assessment Author Follow-Up Date for Monitoring 08/20-, moderate 08/16/2025 12:13 PM EST Jeimy Soriano RD * Discharge Planning Question Answer Date of Assessment Author Support Systems Friends/neighbors;Fa elena members 08/16/2025 2:58 AM EST Luis Salazar RN * Stool Assessment Question Answer Date of Assessment Author Stool Occurrence 0 08/20/2025 8:36 AM EST Ian Lam RN * Neurological Question Answer Date of Assessment Author Orientation Level Oriented X4 08/21/2025 8:17 AM EST Evie Brown RN Cognition Ability to abstract;Appropriate judgement;Appropriate safety awareness;Appropriate attention/concentration;Ap propriate for developmental age;Follows simple commands 08/21/2025 8:17 AM EST Evie Brown RN Speech Clear 08/21/2025 8:17 AM EST Evie Bell RN * Mobility Question Answer Date of Assessment Author Distance Ambulated (ft) 8 08/20/20 25 11:40 AM Ian Bravo RN Ambulation Response Tolerated well 08/20/2025 1 1:40 AM Ian Bravo RN Assistive Device None 08/21/2025 8:17 AM Evie Guerra RN Repositioned Turns self 08/21/2025 8:17 AM Evie Guerra RN Transport Method Bed;Cart;Stretcher 08/21/2025 8 :17 AM Evie Guerra RN Level of Assistance Independent 08/21/2025 8 :17 AM Evie Guerra RN Head of Bed Self regulated 08/21/2025 8:17 AM Evie Guerra RN Heels/Feet Foot of bed elevated 08/21/2025 8:17 AM Evie Guerra RN Range of Motion Type Active;All extremities 08/05 8:01 PM Ritu Vuong RN Positioning Frequency Able to turn self 08/21/20 25 8:17 AM Evie Guerra RN Range of Motion Completed 08/16/2025 8:01 PM Ritu Vuong RN * Hygiene Question Answer Date of Assessment Author Bath/Shower Requests different time 08/21/2025 8:17 A M Evie Guerra RN * Adult IBW/VT Calculations Question Answer Date of Assessment Author IBW/kg (Calculated) Male 50 08/16/2025 2:30 AM Luis Moser RN IBW/kg (Calculated) FEMALE 45.5 08/16/2025 2:3 0 AM Luis Moser RN * ADL Screening Question Answer Date of Assessment Author Is this person blind or does he/she have serious difficulty seeing even when wearing glasses? No 08/16/2025 2:53 AM Lan Moser RN Is this person deaf or does he/she have serious difficulty hearing? No 08/16/2025 2:53 AM Lan Moser RN Does this person have serious difficulty walking or climbing stairs? (5 years old or older) No 08/16/2025 2:53 AM Lan Moser RN Does this person have difficulty dressing or bathing? (5 years old or older) Yes 08/16/2025 2:53 AM Lan Moser RN Because of a physical, mental, or emotional condition, do you have serious difficulty concentrating, remembering, or making decisions? (5 years old or older No 08/16/2025 2:53 AM Lan Moser RN Because of a physical, mental, or emotional condition, do you have difficulty doing errands alone such as visiting a doctor's office or shopping? (15 years old or older) No 08/16/2025 2:53 AM Lan Moser RN Is this person able to express their needs and desires? Yes 08/16/2025 2:53 AM Lan Moser RN Patient's Vision Adequate to Safely Complete Daily Activities 1 08/16/2025 2:53 AM Lan Moser RN Patient's Judgement Adequate to Safely Complete Daily Activities 1 08/16/2025 2:53 AM Lan Moser RN Patient's Memory Adequate to Safely Complete Daily Activities 1 08/16/2025 2:53 AM Lan Moser RN Patient Able to Express Needs/Desires 1 08/16/2025 2:53 AM Lan Moser RN Dressing Independent 08/16/2025 2:53 AM Luis English RN Grooming Independent 08/16/2025 2:53 AM Luis English RN Feeding Independent 08/16/2025 2:53 AM Luis English RN Bathing Independent 08/16/2025 2:53 AM Luis English RN Toileting Independent 08/16/2025 2:53 AM Luis English RN In/Out Bed Independent 08/16/2025 2:53 AM Luis English RN Walks in Home Independent 08/16/2025 2:53 AM Luis Haider RN Weakness of Legs None 08/16/2025 2:53 AM Luis Newby RN Weakness of Arms/Hands None 08/16/2025 2:53 AM Luis Moser RN Hearing - Right Ear Functional 08/16/2025 2:53 AM Luis Denson RN Hearing - Left Ear Functional 08/16/2025 2:53 AM Luis Moser RN * Consults Question Answer Date of Assessment Author Spiritual Care Consult Needed No 08/16/2025 2:55 AM Luis Moser RN * Therapy Consults Question Answer Date of Assessment Author PT Evaluation Needed 1 08/16/2025 2:55 AM Luis Yin RN OT Evalulation Needed 1 08/16/2025 2:55 AM Luis Moser RN [employer] Evaluation Needed 1 08/16/2025 2:55 AM Luis Moser RN * Assistive Devices Question Answer Date of Assessment Author Assistive Devices None 08/16/2025 3:06 AM Luis Moser RN * Homicide Screen Question Answer Date of Assessment Author In your lifetime, have you e tristan attempted to kill others? No 08/15/2025 3:57 PM Danyel Casanova RN Over the past 2 weeks, have you had thoughts of killing others? No 08/15/2025 3:57 PM Shandra Whitt, [place] * [place]-Suicide Severity Rating Scale (C-SSR) Part 1 Question Answer Date of Assessment Author In the past month, have you wished you were or wished you could go to sleep and not wake up? No 08/15/2025 3:57 PM Shandra Casanova RN In the past month, have you actually had any thoughts of killing yourself? No 08/15/2025 3:57 PM Shandra Casanova RN * Re-Assessment NRS Pain Score Answer Date of Assessment Author 4 08/17/2025 7:50 AM Luis A Vuong RN * Skip to questions 9-10? Answer Date of Assessment Author 0 08/16/2025 2:53 AM Luis Lees RN * Statement of Belief Question Answer Date of Assessment Author Does this patient have a sig markie statement of belief? No 08/15/2025 3:58 PM Shandra Casanova RN * Acuity/Destination Question Answer Date of Assessment Author ED Destination Critical Care/Trauma 08/15/2025 4:17 PM Latosha Bull RN Patient Acuity Two 08/15/2025 4:17 PM Latosha Villagomez RN * Anthropometrics Question Answer Date of Assessment Author Weight Change 0.07 08/18/2025 10:00 AM Katherine Alfaro RN * Comprehensive Pain Assessment (with every routine assessment) Question Answer Date of Assessment Author Pain Score 00 - Patient Asleep 08/21/2025 4:01 AM Katherine Akers RN Pain Location Arm 08/20/2025 10:46 AM Ian Bravo RN Pain Orientation Distal 08/20/2025 10:4 6 AM Ian Bravo RN Pain Intervention(s) Medication (See eMAR) 08/17/2025 8:21 AM Linda Quesada RN Pain Descriptors Burning 08/20/2025 10:4 6 AM Ian Bravo RN Pain Frequency Intermittent 08/17/2025 8:21 AM Linda Alvarez RN Patient's Stated Pain Goal No pain 08/21/2025 8:17 AM Evie Guerra R N Multiple Pain Sites No 08/17/2025 1 2:20 PM Linda Quesada RN Pain Type Acute pain 08/20/2025 10:46 AM Ian Bravo RN Clinical Progression Gradually improving 08/17/2025 8: 21 AM Linda Quesada RN * Integumentary Question Answer Date of Assessment Author Skin Color Appropriate for ethnicity 08/21/2025 8:17 AM Evie Guerra RN Skin Condition/Temp Warm;Dry 08/21/2025 8:17 AM Evie Hare RN Skin Integrity Intact 08/21/2025 8:17 AM Evie Sheridan RN Skin Location BUE 08/20/2025 8:36 AM Ian Holt RN * Weights Question Answer Date of Assessment Author Weight 2428.8 08/18/2025 10:00 AM Katherine Trevino RN Weight Source Standing Scale 08/18/2025 10:00 AM Katherine Rollins RN documented as of this encounter Mental Status * [place] Coma Scale Question Answer Entry Date Author Eye Opening 4 08/21/2025 8:17 AM Evie Zhang RN Best Motor Response 6 08/21/2025 8:17 AM Evie Hare RN Best Verbal Response 5 08/21/2025 8:17 AM Evie Shaw RN Levi Coma Scale Score 15 08/21/2025 8:17 AM Evie Guerra RN * Respiratory Vitals Question Answer Entry Date Author Resp 16 08/21/2025 8:16 AM Annamarie Snyder, [employer] * Oxygen Therapy Question Answer Entry Date Author CO2 (mm Hg) 1 08/18/2025 10:35 AM Katherine Trevino RN * Psychosocial Question Answer Entry Date Author Patient Behaviors/Mood Calm;Cooperative 08/21/2025 8:1 7 AM Evie Guerra RN * Additional Assessments Question Answer Entry Date Author Pulse 75 08/21/2025 8:16 AM Annamarie Snyder, [employer] SpO2 91 08/21/2025 8:16 AM Annamarie Snyder, [employer] * Vitals Question Answer Entry Date Author BP 109/64 08/21/2025 7:19 AM Feli Hoyos O2 Flow Rate (L/min) 2 08/21/2025 3:45 AM E Nato Zhang * Neurological Question Answer Entry Date Author Level of Consciousness Alert 8:17 AM Evie Guerra RN Orientation Level Oriented X4 08/21/2025 8:1 7 AM Evie Guerra RN Cognition Ability to abstract;Appropriate judgement;Appropriate safety awareness;Appropriate attention/concentration;Ap propriate for developmental age;Follows simple commands 08/21/2025 8:17 AM Evie Guerra RN Neuro (WDL) WDL 08/20/2025 8:20 PM Katherine Ibrahim RN Neuro Symptoms None 08/21/2025 8:17 AM Evie Guerra RN * Comprehensive Pain Assessment (with every routine assessment) Question Answer Entry Date Author Sedation Level Score 2 08/21/2025 8:17 AM Evie Shaw RN Pain Assessment No/denies pain 08/21/2025 8:17 AM Evie Guerra RN * Integumentary Question Answer Entry Date Author Skin Condition/Temp Warm;Dry 08/21/2025 8:17 AM Evie Hare RN documented in this encounter Discharge Summaries * Ingrid Banks RN - 08/21/2025 11:29 AM EST [facility] Care Management Discharge Summary Patient name: Nellie Alves Patient : 1965 Age: 59 y.o. Gender: female Patient emergency contact: Extended Emergency Contact Information Primary Emergency Contact: nicolasa cagle Mobile Relation: Daughter Attending provider: Quita Ricketts MD Primary care physician: No Pcp The MD has indicated that the patient is ready for discharge. Nellie Alves will d/c home with no CM needs. The patient will be transported by taxi at d/c. Transfer Mode/Level of Care: Taxi The plan has been reviewed: Patient/Family Informed of Discharge Plan: Yes Plan Reviewed With Patient, Family, or Significant Other: Yes Patient and or family are aware and in agreement with the discharge plan: Yes Family Member Name and Relationship Notified at Discharge: n/a Family Contact Number: n/a Plan reviewed with MD and other members of the health care team: Yes Care Plan Completed: Yes No further CM/SW needs. This plan has been reviewed with the multi-disciplinary team. Treatment Preferences Treatment Preferences: Other (provide comment) (n/a) Post-Discharge Goals Patient's Post-Discharge goals: To d/c home safely once acute medical needs have been met. Post Acute Care Provider Information: Community Services at Discharge Community Services at Home post discharge: Not Applicable Danay RO, RN Inpatient Automatic [employer] Tester [phone] * Bev Sierra MD - 08/21/2025 8:19 AM EST [facility] Inpatient Discharge Summary Patient: Nellie Alves Age: 59 y.o. CSN: [id number] Date of Admission: 08/15/2025 Date of Discharge: 08/21/2025 Attending Physician: Quita Ricketts MD Primary Care Physician: No Pcp Diagnoses Present on Admission Past Medical History: Diagnosis Date Aortic stenosis CAD (coronary artery disease) GERD (gastroesophageal reflux disease) Discharge Diagnoses Active Hospital Problems Diagnosis Date Noted Zenker diverticulum [K22.5] 08/16/2025 S/P TAVR (transcatheter aortic valve replacement) [Z95.2] 08/15/2025 Aortic stenosis [I35.0] 08/15/2025 Filling defect on imaging study [R93.89] 08/15/2025 Lightheadedness [R42] 08/15/2025 Shortness of breath [R06.02] 08/15/2025 COPD (chronic obstructive pulmonary disease) ([facility]) [J44.9] 08/15/2025 CAD (coronary artery disease) [I25.10] 08/15/2025 Status post coronary artery stent placement [Z95.5] 08/15/2025 GERD (gastroesophageal reflux disease) [K21.9] 08/15/2025 Allergies [T78.40XA] 08/15/2025 Aortic aneurysm ([facility]) [I71.9] 08/15/2025 Resolved Hospital Problems No resolved problems to display. Operations/Procedures Performed (include dates) Surgeries: Lines and tubes: Patient Lines/Drains/Airways Status Active LDAs None Other Procedures / Pertinent Imaging: CT Cardiac with Coronary Evaluation Result Date: 08/19/2025 IMPRESSION: Status post TAVR with persistent intraluminal filling defect consistent with thrombus, unchanged from 4 days ago. Report Verified by: Lucian Cortes MD at 08/19/2025 11:[address] Thoracic Structures-Rad Interp Result Date: 08/19/2025 IMPRESSION: Status post TAVR with persistent intraluminal filling defect consistent with thrombus, unchanged from 4 days ago. Report Verified by: Lucian Cortes MD at 08/19/2025 11:[address] Angio Abd-Pelvis W and or WO IV Contrast Result Date: 08/15/2025 IMPRESSION: 1. No evidence of aortic dissection or aneurysm in the abdomen or pelvis. 2. Small 7 mmhypodensity in the pancreatic head, likely side branch IPMN. Recommend follow-up CT in one year. Imaging Follow-up #[id number]#: Recommend CT of the Abdomen with contrast in 1 year. Approved by Angelica Mcguire DO on 08/15/2025 7:33 PM EST I have personally reviewed the images and I agree with this report.Report Verified by: Mynor Genao MD at 08/15/2025 7:[address] Angio Chest W and or WO Result Date: 08/15/2025 IMPRESSION: 1. Status post TAVR with a small intrastent filling defect along the valve leaflet, favored represent a small thrombus. 2. No evidence of aortic dissection. 3. Additional ancillary findings as above. CRITICAL RESULT: These findings were discussed with Dr. Sergio Infante on 08/15/2025 5:10PM EST by telephone. They confirmed that they understood the findings communicated to them. #[id number]# Report Verified by: Alberto Hathaway MD at 08/15/2025 5:16 PM EST 08/16/2025 TTE Study Conclusions - Left ventricle: The cavity size is normal. There is mild focal basal hypertrophy. There is hypertrophy of the septum. Systolic function is normal. The estimated ejection fraction is 60-65%. Wall motion is normal; there are no regional wall motion abnormalities. - Aortic valve: A bioprosthetic valve is present. There is mild regurgitation. The mean systolic gradient is 6mm Hg. - Mitral valve: There is mild regurgitation. - Left atrium: The atrium is mildly dilated. - Right ventricle: Systolic function is normal. - Pulmonary arteries: Systolic pressure was moderately increased, estimated to be 50mm Hg. - Inferior vena cava: The IVC is dilated. Consulting Services (include reason) - ENT consult regarding Zenker's diverticulum. - Cardiac surgery regarding initial c/f aortic dissection Allergies Allergies[1] Discharge Medications Medication List TAKE these medications, which are NEW Quantity/Refills enoxaparin 60 mg/0.6 mL Syrg Commonly known as: Lovenox Inject 0.6 mLs (60 mg total) subcutaneously every 12 hours. Quantity: 8.4 mL Refills: 1 torsemide 20 MG tablet Commonly known as: DEMADEX Take 1 tablet (20 mg total) by mouth daily. Quantity: 60 tablet Refills: 0 warfarin 5 MG tablet Commonly known as: COUMADIN/JANTOVEN Take 1 tablet (5 mg total) by mouth daily. Quantity: 14 tablet Refills: 0 TAKE these medications, which you were ALREADY TAKING Quantity/Refills aspirin 81 MG chewable tablet Chew 1 tablet (81 mg total) by mouth daily. Refills: 0 atorvastatin 80 MG tablet Commonly known as: LIPITOR Take 1 tablet (80 mg total) by mouth daily. Refills: 0 levocetirizine 5 MG tablet Commonly known as: XYZAL Take 1 tablet (5 mg total) by mouth daily. Refills: 0 metoprolol tartrate 50 MG tablet Commonly known as: LOPRESSOR Take 1 tablet (50 mg total) by mouth 2 times a day. Quantity: 60 tablet Refills: 3 pantoprazole 40 MG tablet Commonly known as: PROTONIX Take 1 tablet (40 mg total) by mouth daily. Quantity: 30 tablet Refills: 0 traZODone 50 MG tablet Commonly known as: DESYREL Take 1 tablet (50 mg total) by mouth daily. Quantity: 30 tablet Refills: 0 Trelegy Ellipta 100-62.5-25 mcg Dsdv Generic drug: ictdaglydhf-rdfogdtty-ycvkllqz Inhale 1 puff into the lungs daily. Refills: 0 Ventolin HFA 90 mcg/actuation inhaler Generic drug: albuterol Inhale 2 puffs into the lungs every 6 hours as needed for Wheezing or Shortness of Breath. Refills: 0 STOP taking these medications furosemide 20 MG tablet Commonly known as: LASIX Where to Get Your Medications These medications were sent to [facility] [address] [place] [id number] Hours: Tuesday - Tuesday: 8:00AM - 6:00PM enoxaparin 60 mg/0.6 mL Syrg metoprolol tartrate 50 MG tablet pantoprazole 40 MG tablet torsemide 20 MG tablet traZODone 50 MG tablet warfarin 5 MG tablet Discharge Exam Physical Exam Constitutional: General: She is not in acute distress. Appearance: She is not ill-appearing. Cardiovascular: Rate and Rhythm: Normal rate and regular rhythm. Heart sounds: No murmur heard. No friction rub. No gallop. Pulmonary: Effort: No respiratory distress. Breath sounds: No wheezing or rales. Musculoskeletal: Right lower leg: No edema. Left lower leg: No edema. Reason for Admission Nellie Alves is a 59 y.o. female with a PMH of aortic stenosis s/p TAVR at [facility] (2022), CAD s/p stents x4 (2022), COPD (no O2 at [facility]), HTN, GERD here after initial presentation of shortness of breathand presyncope, found to have thrombus on TAVR valve. TTE on 08/16/25 shows normal EF 60-65%, normal mean gradient of 6. FIDEL deferred d/t zenker's diverticulum. Hospital Course Aortic stenosis S/P TAVR (transcatheter aortic valve replacement) Filling defect on imaging study Repeat CT angio chest here found to have TAVR with small intrastent filling defect along the valve leaflet, favored to represent small thrombus; consistent findings on cardiac CT. No evidence of aortic dissection. CT surgery evaluated, no surgical intervention indicated. TTE 08/16/25 w/ normal systolic function LVEF 60-65%, mean gradient 6. FIDEL deferred as it is high risk due to zenker diverticulum. Plans for using Lovenox to bridge to warfarin. INR at time of discharge is 1.0. - Luis mutation lab ordered; pending - continue therapeutic lovenox (60mg BID) as bridge to warfarin (discharging on warfarin 5mg daily w/ goal INR 2-3) - OP labwork w/ INR level on 08/23 morning - PCP follow-up scheduled for 08/23 at 1pm w/ Dr. Amira Alamo - OP cardiology follow-up scheduled for 08/26 at 9:15am at [facility]. They will connect pt to coumadin clinic at this visit. - Consider OP PET scan to r/o valve uptake; will defer this to OP cardiology Lightheadedness Shortness of breath Patient initially presented with presyncopal episodes while undergoing outpatient elective PFT for COPD evaluation. Likely orthostatic +/- neurogenic from dysautonomia +/- vasovagal given history of episodes and elicitation after valsalva. Often noticed night-time hypoxemia to high 80s-low 90s. - Discharging on torsemide 20mg daily d/t intermittent ankle/leg swelling - OP follow-up w/ PCP regarding further work up for NICOLLE w/ sleep study COPD (chronic obstructive pulmonary disease) ([facility] - Continue anoroellipta/asmanex, albuterol PRN - No oxygen needs per walk test CAD (coronary artery disease) Status post coronary artery stent placement History of stent placement post [place] in 2022, troponins here 19->17. Lactate 4.2- >2.5, possiblyfrom decreased perfusion after being on esmolol and diltiazem drip. Lipid panel w/ LDL 81, HDL 82, Triglycerides 124. - Continue ASA, statin Aortic aneurysm (CMS-HCC) Transferred to [facility] from [facility] for concern of aortic dissection; was sent with an esmolol and diltiazem drip. Repeat imaging here showed no evidence of dissection, but CT Surgery would still like to have outpatient follow-up for her ascending aortic aneurysm which is below threshold forelective surgical repair. On imaging here showing thoracic aorta as 4.0cm. 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 Stated she has workup on this already and has a procedure scheduled for repair in early September 2025. ENT was consulted this admission and recommend against FIDEL. - Pt to schedule self for appt w/ her ENT provider [place] GERD (gastroesophageal reflux disease) - continue PPI Allergies - continue certirizine Condition on Discharge 1. Functional Status: normal Describe limitations, if any: 2. Mental Status: Alert/Oriented Describe limitations, if any: 3. Dietary Restrictions / Tube Feeding / TPN Diet/Nutrition Orders Diet Regular(7) Frequency: Effective Now Number of Occurrences: Until Specified Order Questions: Suicide/Behavior Risk Modification? No Dietary nutrition supplements Frequency: TID Number of Occurrences: Until Specified Order Questions: Select Supplement: Boost-1 kcal/ml supplement ([facility] only) As listed above 4. Discharge specific orders: None required 5. Core measures followed: (if this is a core measure patient) Discharge Weight: Weight: 151 lb 12.8 oz (68.9 kg) Disposition Home independent Follow-Up Appointments No future appointments. No follow-up provider specified. Patient Instructions / Follow-Up Items for Receiving Physician PCP: - PCP follow-up scheduled for 08/23 at 1pm w/ Dr. Amira Alamo - OP labwork for INR check on 08/23 morning (pt to be sent home w/ paper prescription for lab). Please follow-up on this INR level prior to pt being seen in cardiology clinic on 08/26 - OP follow-up w/ PCP regarding further work up for NICOLLE w/ sleep study Online Content Coordinator: - OP cardiology follow-up scheduled for 08/26 at 9:15am at [facility]. - Please connect pt w/ local coumadin clinic - Consider OP cardiothoracic surgery follow-up if indicated per cardiology for ascending aortic aneurysm - consider obtaining an OP PET scan to r/o valve uptake - follow-up Luis mutation lab; was pending at time of discharge Signed: Bev Sierra MD 08/21/2025, 8:26 AM [1] Allergies Allergen Reactions Codepatricia Hivcristofer Cosigned by Quita Ricketts MD at 08/21/2025 12:08 PM EST Associated attestation - Quita Ricketts MD - 08/21/2025 12:08 PM EST I have seen and examined this patient with the resident/fellow and have independently reviewed all the pertinent clinical data. I agree with the above evaluation and plan with the following additions/exceptions/observations: I spent greater than 30 minutes on discharge Pt understands how important it is to follow up with PCP and cardiology. Pt to consider PET as an outpt as adjunct evaluation for the thrombus on her TAVR valve. LUIS mutation is pending, however due to nocturnal desaturations NICOLLE is suspected. Pt was iunformed of this andwill plan for a sleep study with her PCP. Pt feels greatly improved and is ready for dc. All of her questions have been answered. Justin Ricketts MD documented in this encounter Discharge Instructions * Discharge Instructions* Marie Davila MD - 08/20/2025 2:08 PM EST Dear Nellie Alves, Here are your hospital discharge instructions: You were hospitalized for shortness of breath, and were found to have a clot in one of the structures in your heart. For this reason, we started you on a blood thinner (Lovenox, aka enoxaparin), withthe eventual goal to transition you to a different blood thinner called warfarin (aka coumadin). When patients are on warfarin, we monitor a particular lab value called the INR , and ideally, we want this level to be between 2-3. Until your INR is at this level, you will have to continue taking Lovenox injections alongside continuing your warfarin. To help assist you with this transition, you will have quite a few outpatient follow-ups as below. You will have to get your labs drawn sometime on the morning of 08/23/25 (bring your paper prescription for the labwork with you). Following your labwork, you are scheduled to see your primary care doctor, Dr. Alamo, on 08/23/25 at 1:00pm (please bring all of your paperwork from this hospitalization, as well as all of your medications). You are also scheduled to see your maintenance manager at [facility] on 08/26/25 at 9:15am; at this visit, they will connect you with the coumadin (warfarin) clinic where they can manage your warfarin. Please bring all of your hospital paperwork and medications to both appointments. Lastly please ensure that you have scheduled yourself to be seen by the ear, nose and throat (ENT) doctors to follow-up regarding your Zenker diverticulum. Your medication changes will be available for you to view at the end of this after visit summary. Thank you, Medicine Team * Attachments The following attachments cannot be sent through Care Everywhere. * Warfarin Information ([place]) * Vitamin K Foods and Warfarin ([place]) documented in this encounter Medications at Time of Discharge aspirin 81 MG chewable tablet Chew 1 tablet (81 mg total) by mouth daily. atorvastatin (LIPITOR) 80 MG tablet Take 1 tablet (80 mg total) by mouth daily. enoxaparin (LOVENOX) 60 mg/0.6 mL Syrg Inject 0.6 mLs (60 mg total) subcutaneously every 12 hours. 8.4 mL 1 08/21/2025 11:22 AM EST 08/20/2025 fluticasone-ume clidin-vilanter (TRELEGY ELLIPTA) 100-62.5-25 mcg DsDv Inhale 1 puff into the lungs daily. levocetirizine (XYZAL) 5 MG tablet Take 1 tablet (5 mg total) by mouth daily. 07/31/2025 metoprolol tartrate (LOPRESSOR) 50 MG tablet Take 1 tablet (50 mg total) by mouth 2 times a day. 60 tablet 3 08/21/2025 pantoprazole (PROTONIX) 40 MG tablet Take 1 tablet (40 mg total) by mouth daily. 30 tablet 08/21/2025 11:22 AM EST 08/21/2025 torsemide (DEMADEX) 20 MG tablet Take 1 tablet (20 mg total) by mouth daily. 60 tablet 08/21/2025 11:22 AM EST 08/21/2025 traZODone (DESYREL) 50 MG tablet Take 1 tablet (50 mg total) by mouth daily. 30 tablet 08/21/2025 VENTOLIN HFA 90 mcg/actuation inhaler Inhale 2 puffs into the lungs every 6 hours as needed for Wheezing or Shortness of Breath. warfarin (COUMADIN/JANTO ENDY) 5 MG tablet Take 1 tablet (5 mg total) by mouth daily. 14 tablet 08/21/2025 11:22 AM EST 08/21/2025 documented as of this encounter Progress Notes * Heather Toribio, PharmD - 08/20/2025 4:01 PM EST RX [facility] - Department of Pharmacy Services Anticoagulation Discharge Planning and Patient Education Nellie Alves is a 59 y.o. female currently on anticoagulant therapy for Other: thrombus on TAVR At this time, the planned discharge anticoagulation regimen includes: Warfarin Tablet Size: 5 mg tablet Instructions: Take 1 tablet (5 mg) by mouth daily INR Goal: 2-3 Pertinent Patient / Laboratory Information: Allergies[1] Wt Readings from Last 3 Encounters: 08/18/25 151 lb 12.8 oz (68.9 kg) Lab Results Component Value Date CREATININE 0.53 (L) 08/20/2025 Lab 08/20/25 0531 08/19/25 1436 08/19/25 0552 08/18/25 0739 08/16/25 0658 08/15/25 1828 INR 0.9 0.9 -- -- -- 1.0 HEMOGLOBIN 16.6* -- 16.4* 17.1* < > 16.3* HEMATOCRIT 47.5* -- 49.0* 49.1* < > 46.8* PLATELETS 151 -- 139* 140 < > 156 < > = values in this interval not displayed. The patient and/or patient???s caregiver has been verbally counseled and given written information on the following: Indication(s), Dose and Administration Medications indication, dose, frequency, and route of administration Instructed regarding what to do in case of a late or missed dose including to never double-up on doses Adherence Importance of taking the medications as instructed for disease treatment and for avoidance of medication adverse events, as appropriate Risks associated with non-compliance Instructed to make a note of missed warfarin doses for whomever is monitoring the therapy Monitoring Outpatient monitoring of PT/INR Patient-specific PT/INR goal as documented above Importance of routine follow-up appointment compliance for laboratory assessment with PT/INR blood draws including expected frequency of monitoring Instructed to notify physician, including dentist, prior to performing a procedure or surgery Drug Interactions Other prescription drugs, sfko-kii-koeimnv medications, and herbal supplements can interact with warfarin which can increase the risk of bleeding or decrease the effect of the drug Instructed to alert all providers who can prescribe new medications that the patient is on warfarin Instructed not to start or stop any pxdl-kgp-[id number] medications or herbal supplements except on the advise of a physician or pharmacist Instructed to use the same pharmacy to fill prescriptions to allow for monitoring of drug interactions Diet and Alcohol Instructed on common food interactions with warfarin Emphasized importance of consistent vitamin K food intake rather than complete avoidance Instructed to avoid major changes in dietary habits without first discussing with warfarin prescriber Instructed to avoid excessive alcohol consumption Adverse Events Instructed on common and serious adverse events including bleeding risk Instructed on when to contact a provider such as blood in urine or stool, black tarry stool, prolonged bleeding, extensive bruising All questions were answered during the education session and the patient has expressed understanding of the above instructions to be continued / observed upon discharge from the hospital. Teach back method was used and the patient was able to repeat back important education points. Barriers to education included: NA Follow-up anticoagulation monitoring: - OP labwork w/ INR level on 08/23 morning - PCP follow-up scheduled for 08/23 at 1pm w/ Dr. Amira Alamo - OP cardiology follow-up scheduled for 08/26 at 9:15am at [facility]. They will connect pt to coumadin clinic at this visit. Team to prescribe warfarin (electronic or written) at time of patient discharge, as appropriate. Heather Toribio PharmD Clinical Vector Control Specialist, Cardiology Preferred contact: [employer] Secure Chat Weekend/On-call pager: [phone] [1] Allergies Allergen Reactions Codeine Hives * Heather Toribio PharmD - 08/20/2025 10:08 AM EST Images from the original note were not included. CLINICAL PHARMACY SERVICES: Warfarin Dosing Consult Nellie Alves is a 59 y.o. female being treated with warfarin. Pharmacy consulted to manage warfarin forLV thrombus per consult order and chart review. Objective Data Anticoagulant Labs (Last 7 days) Today 0531 Yesterday 1436 Yesterday 0552 INR 0.9 0.9 -- Hgb 16.6 -- 16.4 Hct 47.5 -- 49.0 Plts 151 -- 139 Creatinine 0.53 -- 0.52 HPTT 114.0 -- 117.5 Anticoagulants Dose Frequency Start End heparin (porcine) injection 3,000 Units 40 Units/kg ?? 73 kg Every 6 hours PRN 08/15/2025 -- Admin Instructions: For low hPTT = 36 to 89 seconds; BOLUS 40 units/kg (MAX 10,000 units) Per hPTT goal 90-120 seconds protocol Route: Intravenous Linked Group 1: Placed in And Linked Group heparin (porcine) injection 6,000 Units 80 Units/kg ?? 73 kg Every 6 hours PRN 08/15/2025 -- Admin Instructions: For low hPTT = less than 36 seconds; BOLUS 80 unit/kg IV (MAX 10,000 units) per hPTT goal 90-120 seconds protocol Route: Intravenous Linked Group 1: Placed in And Linked Group heparin 06455 units in 0.45% NaCl 250 mL IV infusion 18 Units/kg/hr ?? 73 kg Continuous 08/15/2025 -- Admin Instructions: Goal hPTT 90-120 seconds hPTT = less than 36 seconds: BOLUS 80 unit/kg/ IV INCREASE dose by 4 units/kg/hour ORDER repeat hPTT in 6 hours hPTT = 36 to 89 seconds: BOLUS 40 unit/kg/ IV INCREASE dose by 2 units/kg/hour ORDER repeat hPTT in 6 hours hPTT = 90 to 120 seconds: NO BOLUS CONTINUE current dose ORDER repeat hPTT in 6 hours until there are 2 consecutive results in range. When 2 consecutive hPTT are at goal, then monitor hPTT daily (minimum). If the hPTT is out of range after this, then resume checking hPTT every 6 hours until 2 consecutive results in range. hPTT = 121 to 140 seconds: NO BOLUS DECREASE dose by 2 units/kg/hour ORDER repeat hPTT in 6 hours hPTT = 141 to 190 seconds: HOLD infusion for 1 hour DECREASE dose by 3 units/kg/hour ORDER repeat hPTT in 6 hours hPTT = greater than 190 X 1 reading: HOLD infusion for 1 hour DECREASE dose by 3 units/kg/hour ORDER repeat hPTT in 6 hours hPTT = greater than 190 X 2 readings: HOLD infusion Call physician for further direction HIGH ALERT MEDICATION. Route: Intravenous Linked Group 1: Placed in And Linked Group warfarin (COUMADIN/JANTOVEN) tablet 5 mg 5 mg Daily17 08/19/2025 -- Route: Oral documented within (last 168 hours) Date/Time Action Medication Dose 08/19/25 1658 Given warfarin (COUMADIN/JANTOVEN) tablet 5 mg 5 mg documented within (last 168 hours) Date/Time Action Medication Dose Rate 08/20/25 0110 New Bag heparin 06350 units in 0.45% NaCl 250 mL IV infusion 22 Units/kg/hr 16.1 mL/hr 08/19/25 0900 New Bag heparin 03998 units in 0.45% NaCl 250 mL IV infusion 22 Units/kg/hr 16.1 mL/hr 08/18/25 1720 New Bag heparin 06984 units in 0.45% NaCl 250 mL IV infusion 22 Units/kg/hr 16.1 mL/hr 08/18/25 0133 New Bag heparin 49623 units in 0.45% NaCl 250 mL IV infusion 22 Units/kg/hr 16.1 mL/hr 08/17/25 2142 Rate/Dose Change heparin 97747 units in 0.45% NaCl 250 mL IV infusion 22 Units/kg/hr 16.1 mL/hr 08/17/25 1102 Restarted heparin 88368 units in 0.45% NaCl 250 mL IV infusion 20 Units/kg/hr 14.6 mL/hr 08/17/25 1043 Paused heparin 46384 units in 0.45% NaCl 250 mL IV infusion 0 mL/hr 08/17/25 0807 New Bag heparin 82062 units in 0.45% NaCl 250 mL IV infusion 20 Units/kg/hr 14.6 mL/hr 08/17/25 0701 Given heparin (porcine) injection 3,000 Units 3,000 Units 08/17/25 0701 New Bag heparin 30328 units in 0.45% NaCl 250 mL IV infusion 20 Units/kg/hr 14.6 mL/hr 08/16/25 1225 New Bag heparin 94105 units in 0.45% NaCl 250 mL IV infusion 18 Units/kg/hr 13.1 mL/hr 08/15/25 1839 New Bag heparin 97453 units in 0.45% NaCl 250 mL IV infusion 18 Units/kg/hr 13.1 mL/hr 08/15/25 1835 Given heparin (porcine) injection 6,000 Units 6,000 Units documented within (last 168 hours) None Warfarin Data Warfarin Prescribing: INR goal: 2-3 Warfarin dose prior to admission: None Home warfarin tablet size: None Outpatient anticoagulation managed by: TBD - will need to set up with PCP or alternative provider Warfarin Interactions: Antiplatelets/Anticoagulants: aspirin, heparin infusion Chronic Medications: -- New medications or dose changes: -- Reversal agents: -- Nutrition: Regular Diet with Boost nutrition supplements TID Disease state: -- Assessment and Plan Dosing: Adjustment: INR today is subtherapeutic Recommend to continue warfarin 5 mg daily. Check INR tomorrow morning Will check cost of lovenox today for potential outpatient bridge Continue heparin infusion or alternative parenteral anticoagulant until INR > 2 for two consecutive days. Continue to monitor for bleeding and warfarin interactions as clinically appropriate. Pharmacy will continue to follow. Please call or page with any questions. Thank you for the consult. * Bev Sierra MD - 08/20/2025 6:28 AM EST [facility] Internal Medicine - Progress Note Team: Cardiology Mae Chief Concern / Reason for Follow-Up Shortness of breath, filling defect of valve leaflet seen on imaging Interval History NAEO, HDS. Denies SOB, hemoptysis/hematemesis/hematochezia. Mild epistaxis w/ NC. Pt looking forward to going home soon. Plan: - Switch heparin gtt to therapeutic lovenox tonight - Luis mutation labwork pending - Schedule OP cardiology and PCP follow-up appointments on behalf of pt Intake/Output Summary (Last 24 hours) at 08/20/2025627 Last data filed at 08/19/20252044 Gross per 24 hour Intake 642 ml Output 450 ml Net 192 ml Review of Systems ROS per HPI Physical Exam Temp: [97.7 ??F (36.5 ??C)-98.6 ??F (37 ??C)] 97.7 ??F (36.5 ??C) Heart Rate: [69-87] 73 Resp: [16-18] 17 BP: (102-131)/(67-79) 105/67 Physical Exam Constitutional: Appearance: Normal appearance. HENT: Head: Normocephalic and atraumatic. Eyes: Extraocular Movements: Extraocular movements intact. Cardiovascular: Rate and Rhythm: Normal rate and regular rhythm. Heart sounds: Murmur heard. Pulmonary: Effort: Pulmonary effort is normal. Breath sounds: Wheezing present. Abdominal: General: There is distension. Palpations: There is no mass. Tenderness: There is no abdominal tenderness. Musculoskeletal: Right lower leg: No edema. Left lower leg: No edema. Neurological: Mental Status: She is alert. Diagnostic Studies I have personally reviewed labs. I have reviewed the following imaging reports: CT Cardiac with Coronary Evaluation Result Date: 08/19/2025 IMPRESSION: Status post TAVR with persistent intraluminal filling defect consistent with thrombus, unchanged from 4 days ago. Report Verified by: Lucian Cortes MD at 08/19/2025 11:[address] Thoracic Structures-Rad Interp Result Date: 08/19/2025 IMPRESSION: Status post TAVR with persistent intraluminal filling defect consistent with thrombus, unchanged from 4 days ago. Report Verified by: Lucian Cortes MD at 08/19/2025 11:[address] Angio Abd-Pelvis W and or WO IV Contrast Result Date: 08/15/2025 IMPRESSION: 1. No evidence of aortic dissection or aneurysm in the abdomen or pelvis. 2. Small 7 mmhypodensity in the pancreatic head, likely side branch IPMN. Recommend follow-up CT in one year. Imaging Follow-up #[id number]#: Recommend CT of the Abdomen with contrast in 1 year. Approved by Angelica Mcguire DO on 08/15/2025 7:33 PM EST I have personally reviewed the images and I agree with this report.Report Verified by: Mynor Genao MD at 08/15/2025 7:[address] Angio Chest W and or WO Result Date: 08/15/2025 IMPRESSION: 1. Status post TAVR with a small intrastent filling defect along the valve leaflet, favored represent a small thrombus. 2. No evidence of aortic dissection. 3. Additional ancillary findings as above. CRITICAL RESULT: These findings were discussed with Dr. Sergio Infante on 08/15/2025 5:10PM EST by telephone. They confirmed that they understood the findings communicated to them. #[id number]# Report Verified by: Alberto Hathaway MD at 08/15/2025 5:16 PM EST Assessment & Plan Nellie Alves is a 59 y.o. with PMH of aortic stenosis s/p TAVR (2022), CAD s/p stents x4 (2022), COPD, HTN, GERD here after initial presentation of shortness of breath and presyncope, found to have possible thrombus on TAVR valve. TTE yesterday 08/16/25 shows normal EF 60-65%, normal mean gradient of 6. FIDEL pending, awaiting ENT clearance based on known zenker's diverticulum. Assessment & Plan Aortic stenosis S/P TAVR (transcatheter aortic valve replacement) Filling defect on imaging study Repeat CT angio chest here found to have TAVR with small intrastent filling defect along the valve leaflet, favored to represent small thrombus; consistent findings on cardiac CT. No evidence of aortic dissection. CT surgery evaluated, no surgical intervention indicated however recommended cardiology workup. Orders should be received from [facility] by morning. BNP 475 on 08/16/25; now improving. - TTE 08/16/25, normal systolic function LVEF 60-65%, mean gradient 6 - FIDEL deferred, high risk due to zenker diverticulum - Luis mutation lab ordered; pending - switch heparin gtt to therapeutic lovenox starting 8pm today. Bridging to warfarin. - will do teaching today on lovenox injections - Warfarin started on 08/19. INR remains subtherapeutic (goal INR 2-3) - OP labwork w/ INR level on 08/23 morning - PCP follow-up scheduled for 08/23 at 1pm w/ Dr. Amira Alamo - OP cardiology follow-up scheduled for 08/26 at 9:15am at [facility]. They will connect pt to coumadin clinic at this visit. - Plan for OP PET scan to r/o valve uptake Lightheadedness Shortness of breath Patient initially presented with presyncopal episodes while undergoing outpatient elective PFT for COPD evaluation. Likely orthostatic +/- neurogenic from dysautonomia +/- vasovagal given history of episodes and elicitation after valsalva. - Encourage PO intake - Continuous tele COPD (chronic obstructive pulmonary disease) ([facility]) Possibly having a COPDe, will consider starting abx / pred once fluid status is better determined. - Goal O2 sat 88-92% - Continue anoroellipta/asmanex - Albuterol PRN - acapella, incentive spirometry ordered - walk test today CAD (coronary artery disease) Status post coronary artery stent placement History of stent placement post HI in 2022, troponins here 19->17. Lactate 4.2- >2.5, possiblyfrom decreased perfusion after being on esmolol and diltiazem drip. - Continue ASA, statin - Lipid panel; LDL 81, HDL 82, Triglycerides 124 Aortic aneurysm ([facility]) Transferred to [facility] for concern of aortic dissection, was sent with an esmolol and diltiazem drip. Repeat imaging here showed no evidence of dissection, CT Surgery would still like to have outpatientfollow-up for her ascending aortic aneurysm which is below threshold for elective surgical repair. On imaging here showing thoracic aorta as 4.0cm. 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 Stated she has workup on this already and has a procedure scheduled for repair. - ENT consult; recommend to defer FIDEL due to risk GERD (gastroesophageal reflux disease) - continue PPI Allergies - continue certirizine DVT Prophylaxis: enoxaparin (therapeutic) plan to transition hep gtt to lovenox this evening. Bridging to warfarin. Code Status: Full Code Bev Sierra MD Internal Medicine, PGY-1 08/20/2025 2:46 PM Cosigned by Quita Ricketts MD at 08/20/2025 3:19 PM EST Associated attestation - Quita Ricketts MD - 08/20/2025 3:19 PM EST I have seen and examined this patient with the resident/fellow and have independently reviewed all the pertinent clinical data. I agree with the above evaluation and plan with the following additions/exceptions/observations: Planned d/c tomorrow after AC clinic and lovenox issue can be worked out, as well as follow up apt. Walk test * Nettie WarnerD - 08/19/2025 3:14 PM EST Images from the original note were not included. CLINICAL PHARMACY SERVICES: Warfarin Dosing Consult Nellie Alves is a 59 y.o. female being treated with warfarin. Pharmacy consulted to manage warfarin forLV thrombus per consult order and chart review. Objective Data Anticoagulant Labs (Last 7 days) Today 0552 Yesterday 1750 Yesterday 1026 Hgb 16.4 -- -- Hct 49.0 -- -- Plts 139 -- -- Creatinine 0.52 0.51 -- HPTT 117.5 93.7 115.8 Anticoagulants Dose Frequency Start End heparin (porcine) injection 3,000 Units 40 Units/kg ?? 73 kg Every 6 hours PRN 08/15/2025 -- Admin Instructions: For low hPTT = 36 to 89 seconds; BOLUS 40 units/kg (MAX 10,000 units) Per hPTT goal 90-120 seconds protocol Route: Intravenous Linked Group 1: Placed in And Linked Group heparin (porcine) injection 6,000 Units 80 Units/kg ?? 73 kg Every 6 hours PRN 08/15/2025 -- Admin Instructions: For low hPTT = less than 36 seconds; BOLUS 80 unit/kg IV (MAX 10,000 units) per hPTT goal 90-120 seconds protocol Route: Intravenous Linked Group 1: Placed in And Linked Group heparin 09387 units in 0.45% NaCl 250 mL IV infusion 18 Units/kg/hr ?? 73 kg Continuous 08/15/2025 -- Admin Instructions: Goal hPTT 90-120 seconds hPTT = less than 36 seconds: BOLUS 80 unit/kg/ IV INCREASE dose by 4 units/kg/hour ORDER repeat hPTT in 6 hours hPTT = 36 to 89 seconds: BOLUS 40 unit/kg/ IV INCREASE dose by 2 units/kg/hour ORDER repeat hPTT in 6 hours hPTT = 90 to 120 seconds: NO BOLUS CONTINUE current dose ORDER repeat hPTT in 6 hours until there are 2 consecutive results in range. When 2 consecutive hPTT are at goal, then monitor hPTT daily (minimum). If the hPTT is out of range after this, then resume checking hPTT every 6 hours until 2 consecutive results in range. hPTT = 121 to 140 seconds: NO BOLUS DECREASE dose by 2 units/kg/hour ORDER repeat hPTT in 6 hours hPTT = 141 to 190 seconds: HOLD infusion for 1 hour DECREASE dose by 3 units/kg/hour ORDER repeat hPTT in 6 hours hPTT = greater than 190 X 1 reading: HOLD infusion for 1 hour DECREASE dose by 3 units/kg/hour ORDER repeat hPTT in 6 hours hPTT = greater than 190 X 2 readings: HOLD infusion Call physician for further direction HIGH ALERT MEDICATION. Route: Intravenous Linked Group 1: Placed in And Linked Group warfarin (COUMADIN/JANTOVEN) tablet 5 mg 5 mg Daily17 08/19/2025 -- Route: Oral documented within (last 168 hours) None documented within (last 168 hours) Date/Time Action Medication Dose Rate 08/19/25 0900 New Bag heparin 69367 units in 0.45% NaCl 250 mL IV infusion 22 Units/kg/hr 16.1 mL/hr 08/18/25 1720 New Bag heparin 48557 units in 0.45% NaCl 250 mL IV infusion 22 Units/kg/hr 16.1 mL/hr 08/18/25 0133 New Bag heparin 29110 units in 0.45% NaCl 250 mL IV infusion 22 Units/kg/hr 16.1 mL/hr 08/17/25 2142 Rate/Dose Change heparin 55944 units in 0.45% NaCl 250 mL IV infusion 22 Units/kg/hr 16.1 mL/hr 08/17/25 1102 Restarted heparin 95251 units in 0.45% NaCl 250 mL IV infusion 20 Units/kg/hr 14.6 mL/hr 08/17/25 1043 Paused heparin 39170 units in 0.45% NaCl 250 mL IV infusion 0 mL/hr 08/17/25 0807 New Bag heparin 73804 units in 0.45% NaCl 250 mL IV infusion 20 Units/kg/hr 14.6 mL/hr 08/17/25 0701 Given heparin (porcine) injection 3,000 Units 3,000 Units 08/17/25 0701 New Bag heparin 95542 units in 0.45% NaCl 250 mL IV infusion 20 Units/kg/hr 14.6 mL/hr 08/16/25 1225 New Bag heparin 61599 units in 0.45% NaCl 250 mL IV infusion 18 Units/kg/hr 13.1 mL/hr 08/15/25 1839 New Bag heparin 71920 units in 0.45% NaCl 250 mL IV infusion 18 Units/kg/hr 13.1 mL/hr 08/15/25 1835 Given heparin (porcine) injection 6,000 Units 6,000 Units documented within (last 168 hours) None Warfarin Data Warfarin Prescribing: INR goal: 2-3 Warfarin dose prior to admission: None Home warfarin tablet size: None Outpatient anticoagulation managed by: TBD - will need to set up with PCP or alternative provider Warfarin Interactions: Antiplatelets/Anticoagulants: aspirin, heparin infusion Chronic Medications: -- New medications or dose changes: -- Reversal agents: -- Nutrition: Regular Diet with Boost nutrition supplements TID Disease state: -- Assessment and Plan Dosing: Adjustment: Recommend warfarin 5 mg daily. Check INR tomorrow morning. Continue heparin infusion or alternative parenteral anticoagulant until INR > 2 for two consecutive days. Continue to monitor for bleeding and warfarin interactions as clinically appropriate. Pharmacy will continue to follow. Please call or page with any questions. Thank you for the consult. * Ashwin Puga MD - 08/19/2025 8:36 AM EST [facility] Internal Medicine - Progress Note Team: Cardiology Mae Chief Concern / Reason for Follow-Up Shortness of breath, filling defect of valve leaflet seen on imaging Interval History NAEO, VSS Patient seen at bedside in no acute distress, comfortably eating breakfast. Continued to be on 1L oxygen today, was able to bring her down to RA while observing in the room and she was saturating at 94%. Plan: - Cardiac CT obtained; pending final read - Additional 25mg metoprolol was given today in order to get to target HR prior to imaging - IV Lasix 40 mg given once yesterday, diuresis today is home torsemide 20mg daily - NN - 160 mL last 24 hours - I/Os, standing weights, 151lbs yesterday - Incentive spirometry ordered - Luis mutation labwork; pending - BNP yesterday at 79, improved from 475 on admission Intake/Output Summary (Last 24 hours) at 08/19/2025 1117 Last data filed at 08/19/2025 0825 Gross per 24 hour Intake 1810 ml Output 2300 ml Net -490 ml Review of Systems ROS per HPI Physical Exam Temp: [97.5 ??F (36.4 ??C)-97.9 ??F (36.6 ??C)] 97.9 ??F (36.6 ??C) Heart Rate: [70-84] 84 Resp: [16-18] 17 BP: (87-106)/(60-73) 103/73 Physical Exam Constitutional: Appearance: Normal appearance. HENT: Head: Normocephalic and atraumatic. Eyes: Extraocular Movements: Extraocular movements intact. Cardiovascular: Rate and Rhythm: Normal rate and regular rhythm. Heart sounds: Murmur heard. Pulmonary: Effort: Pulmonary effort is normal. Breath sounds: Wheezing present. Abdominal: General: There is distension. Palpations: There is no mass. Tenderness: There is no abdominal tenderness. Musculoskeletal: Right lower leg: No edema. Left lower leg: No edema. Neurological: Mental Status: She is alert. Diagnostic Studies I have personally reviewed labs. I have reviewed the following imaging reports: CT Angio Abd-Pelvis W and or WO IV Contrast Result Date: 08/15/2025 IMPRESSION: 1. No evidence of aortic dissection or aneurysm in the abdomen or pelvis. 2. Small 7 mmhypodensity in the pancreatic head, likely side branch IPMN. Recommend follow-up CT in one year. Imaging Follow-up #[id number]#: Recommend CT of the Abdomen with contrast in 1 year. Approved by Angelica Mcguire DO on 08/15/2025 7:33 PM EST I have personally reviewed the images and I agree with this report.Report Verified by: Mynor Genao MD at 08/15/2025 7:[address] Angio Chest W and or WO Result Date: 08/15/2025 IMPRESSION: 1. Status post TAVR with a small intrastent filling defect along the valve leaflet, favored represent a small thrombus. 2. No evidence of aortic dissection. 3. Additional ancillary findings as above. CRITICAL RESULT: These findings were discussed with Dr. Sergio Infante on 08/15/2025 5:10PM EST by telephone. They confirmed that they understood the findings communicated to them. #[id number]# Report Verified by: Alberto Hathaway MD at 08/15/2025 5:16 PM EST Assessment & Plan Nellie Alves is a 59 y.o. with PMH of aortic stenosis s/p TAVR (2022), CAD s/p stents x4 (2022), COPD, HTN, GERD here after initial presentation of shortness of breath and presyncope, found to have possible thrombus on TAVR valve. TTE yesterday 08/16/25 shows normal EF 60-65%, normal mean gradient of 6. FIDEL pending, awaiting ENT clearance based on known zenker's diverticulum. Assessment & Plan Aortic stenosis S/P TAVR (transcatheter aortic valve replacement) Filling defect on imaging study Repeat CT angio chest here found to have TAVR with small intrastent filling defect along the valve leaflet, favored to represent small thrombus. No evidence of aortic dissection. CT surgery evaluated, no surgical intervention indicated however recommended cardiology workup. Orders should be received from [facility] by morning. BNP 475 on 08/16/25. - TTE 08/16/25, normal systolic function LVEF 60-65%, mean gradient 6 - FIDEL deferred, high risk due to zenker diverticulum - Blood cultures NG >48hours - heparin gtt - Cardiac CT captured today; pending final read - Luis mutation lab ordered; pending - BNP yesterday at 79, improved from admission value of 475 Lightheadedness Shortness of breath Patient initially presented with presyncopal episodes while undergoing outpatient elective PFT for COPD evaluation. Likely orthostatic +/- neurogenic from dysautonomia +/- vasovagal given history of episodes and elicitation after valsalva. - Encourage PO intake - Continuous tele COPD (chronic obstructive pulmonary disease) ([facility]) Possibly having a COPDe, will consider starting abx / pred once fluid status is better determined. - Goal O2 sat 88-92% - Continue anoroellipta/asmanex - Albuterol PRN - acapella, incentive spirometry ordered CAD (coronary artery disease) Status post coronary artery stent placement History of stent placement post HI in 2022, troponins here 19->17. Lactate 4.2- >2.5, possiblyfrom decreased perfusion after being on esmolol and diltiazem drip. - Continue ASA, statin - Lipid panel; LDL 81, HDL 82, Triglycerides 124 Aortic aneurysm ([facility]) Transferred to [facility] for concern of aortic dissection, was sent with an esmolol and diltiazem drip. Repeat imaging here showed no evidence of dissection, CT Surgery would still like to have outpatientfollow-up for her ascending aortic aneurysm which is below threshold for elective surgical repair. On imaging here showing thoracic aorta as 4.0cm. 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 Stated she has workup on this already and has a procedure scheduled for repair. - ENT consult; recommend to defer FIDEL due to risk GERD (gastroesophageal reflux disease) - continue PPI Allergies - continue certirizine DVT Prophylaxis: subcutaneous heparin (prophylaxis) Code Status: Full Code Medical Readiness for Discharge: 2-4 Days ASHWIN PUGA MD Neurology PGY1 Cardiology Wards 08/19/2025 8:36 AM The assessment & plan was reviewed and copied forward (with edits) from a note written by a like provider on the day prior. I have reviewed and updated the history, physical exam, data, assessment, and plan of the note so that it reflects my evaluation and management of the patient. Cosigned by Quita Ricketts MD at 08/20/2025 2:16 PM EST Associated attestation - Quita Ricketts MD - 08/20/2025 2:16 PM EST I have seen and examined this patient with the resident/fellow on 08/19 and have independently reviewed all the pertinent clinical data. I agree with the above evaluation and plan with the following additions/exceptions/observations: * Ashwin Puga MD - 08/18/2025 7:07 AM EST [facility] Internal Medicine - Progress Note Team: Cardiology Mae Chief Concern / Reason for Follow-Up Shortness of breath, filling defect of valve leaflet seen on imaging Interval History NAEO, VSS Patient seen at bedside in no acute distress with no acute concerns. Still requiring oxygen howeverhas improved to only needing 1L today from 2L yesterday. Symptoms seem like they could be related to COPD rather than a elbert heart failure exacerbation. We will start incentive spirometry, and assess BNP level to gauge heart failure involvement. Plan: - ENT consult placed, they recommend to defer FIDEL at this time given risk from zenker diverticulum - Cardiac CT ordered; pending - IV Lasix 40 mg once today - NN - 967 mL last 24 hours - I/Os, standing weights, 151lbs today - Incentive spirometry ordered - Luis mutation labwork; pending - BNP; pending Intake/Output Summary (Last 24 hours) at 08/18/2025 0708 Last data filed at 08/18/2025 0133 Gross per 24 hour Intake 1033 ml Output 2000 ml Net -967 ml Review of Systems ROS per HPI Physical Exam Temp: [97.7 ??F (36.5 ??C)-98.2 ??F (36.8 ??C)] 98.2 ??F (36.8 ??C) Heart Rate: [62-76] 72 Resp: [16-18] 16 BP: (93-110)/(59-67) 105/67 Physical Exam Constitutional: Appearance: Normal appearance. HENT: Head: Normocephalic and atraumatic. Eyes: Extraocular Movements: Extraocular movements intact. Cardiovascular: Rate and Rhythm: Normal rate and regular rhythm. Heart sounds: Murmur heard. Pulmonary: Effort: Pulmonary effort is normal. Breath sounds: Wheezing present. Abdominal: General: There is distension. Palpations: There is no mass. Tenderness: There is no abdominal tenderness. Musculoskeletal: Right lower leg: No edema. Left lower leg: No edema. Neurological: Mental Status: She is alert. Diagnostic Studies I have personally reviewed labs. I have reviewed the following imaging reports: CT Angio Abd-Pelvis W and or WO IV Contrast Result Date: 08/15/2025 IMPRESSION: 1. No evidence of aortic dissection or aneurysm in the abdomen or pelvis. 2. Small 7 mmhypodensity in the pancreatic head, likely side branch IPMN. Recommend follow-up CT in one year. Imaging Follow-up #[id number]#: Recommend CT of the Abdomen with contrast in 1 year. Approved by Angelica Mcguire DO on 08/15/2025 7:33 PM EST I have personally reviewed the images and I agree with this report.Report Verified by: Mynor Genao MD at 08/15/2025 7:[address] Angio Chest W and or WO Result Date: 08/15/2025 IMPRESSION: 1. Status post TAVR with a small intrastent filling defect along the valve leaflet, favored represent a small thrombus. 2. No evidence of aortic dissection. 3. Additional ancillary findings as above. CRITICAL RESULT: These findings were discussed with Dr. Sergio Infante on 08/15/2025 5:10PM EST by telephone. They confirmed that they understood the findings communicated to them. #[id number]# Report Verified by: Alberto Hathaway MD at 08/15/2025 5:16 PM EST Assessment & Plan Nellie Alves is a 59 y.o. with PMH of aortic stenosis s/p TAVR (2022), CAD s/p stents x4 (2022), COPD, HTN, GERD here after initial presentation of shortness of breath and presyncope, found to have possible thrombus on TAVR valve. TTE yesterday 08/16/25 shows normal EF 60-65%, normal mean gradient of 6. FIDEL pending, awaiting ENT clearance based on known zenker's diverticulum. Assessment & Plan Aortic stenosis S/P TAVR (transcatheter aortic valve replacement) Filling defect on imaging study Repeat CT angio chest here found to have TAVR with small intrastent filling defect along the valve leaflet, favored to represent small thrombus. No evidence of aortic dissection. CT surgery evaluated, no surgical intervention indicated however recommended cardiology workup. Orders should be received from [facility] by morning. BNP 475 on 08/16/25. - TTE 08/16/25, normal systolic function LVEF 60-65%, mean gradient 6 - FIDEL deferred, high risk due to zenker diverticulum - Blood cultures NG >48hours - heparin gtt - Cardiac CT ordered; pending - Luis mutation lab ordered; pending - BNP ordered; pending Lightheadedness Shortness of breath Patient initially presented with presyncopal episodes while undergoing outpatient elective PFT for COPD evaluation. Likely orthostatic +/- neurogenic from dysautonomia +/- vasovagal given history of episodes and elicitation after valsalva. - Encourage PO intake - Continuous tele COPD (chronic obstructive pulmonary disease) ([facility]) Possibly having a COPDe, will consider starting abx / pred once fluid status is better determined. - Goal O2 sat 88-92% - Continue anoroellipta/asmanex - Albuterol PRN - acapella, incentive spirometry ordered CAD (coronary artery disease) Status post coronary artery stent placement History of stent placement post HI in 2022, troponins here 19->17. Lactate 4.2- >2.5, possiblyfrom decreased perfusion after being on esmolol and diltiazem drip. - Continue ASA, statin - Lipid panel; LDL 81, HDL 82, Triglycerides 124 Aortic aneurysm ([facility]) Transferred to [facility] for concern of aortic dissection, was sent with an esmolol and diltiazem drip. Repeat imaging here showed no evidence of dissection, CT Surgery would still like to have outpatientfollow-up for her ascending aortic aneurysm which is below threshold for elective surgical repair. On imaging here showing thoracic aorta as 4.0cm. 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 Stated she has workup on this already and has a procedure scheduled for repair. - ENT consult; recommend to defer FIDEL due to risk GERD (gastroesophageal reflux disease) - continue PPI Allergies - continue certirizine DVT Prophylaxis: subcutaneous heparin (prophylaxis) Code Status: Full Code Medical Readiness for Discharge: 2-4 Days ASHWIN PUGA MD Neurology PGY1 Cardiology Wards 08/18/2025 7:07 AM The assessment & plan was reviewed and copied forward (with edits) from a note written by a like provider on the day prior. I have reviewed and updated the history, physical exam, data, assessment, and plan of the note so that it reflects my evaluation and management of the patient. Cosigned by Quita Ricketts MD at 08/18/2025 9:31 PM EST Associated attestation - Quita Ricketts MD - 08/18/2025 9:31 PM EST I have seen and examined this patient with the resident/fellow and have independently reviewed all the pertinent clinical data. I agree with the above evaluation and plan with the following additions/exceptions/observations: * Ashwin Puga MD - 08/17/2025 9:07 AM EST [facility] Internal Medicine - Progress Note Team: Cardiology Mae Chief Concern / Reason for Follow-Up Shortness of breath, filling defect of valve leaflet seen on imaging Interval History TAYLOR LACKEY Patient seen at bedside in no acute distress, eating her breakfast. Stated her shortness of breath has slightly improved, now on 2L oxygen from initially being at 3L yesterday. Her baseline is no oxygen requirement. Started on diuresis yesterday with IV lasix 40mg BID, will give her one dose today while we continue to monitor I/Os and standing weights. TTE completed yesterday showed good mean gradient across the bioprosthetic valve, FIDEL tentative for Tuesday pending ENT evaluation for patient's known zenker's diverticulum. Plan: - IV Lasix 40 mg once today - I/Os, standing weights - TTE completed yesterday; normal systolic function 60-65%, normal mean gradient - FIDEL ordered; pending, awaiting ENT clearance Review of Systems ROS per HPI Physical Exam Temp: [97.5 ??F (36.4 ??C)-98.4 ??F (36.9 ??C)] 97.9 ??F (36.6 ??C) Heart Rate: [64-76] 69 Resp: [16-18] 18 BP: (95-127)/(53-73) 95/59 Physical Exam Constitutional: Appearance: Normal appearance. HENT: Head: Normocephalic and atraumatic. Eyes: Extraocular Movements: Extraocular movements intact. Cardiovascular: Rate and Rhythm: Normal rate and regular rhythm. Heart sounds: Murmur heard. Pulmonary: Effort: Pulmonary effort is normal. Breath sounds: Wheezing present. Abdominal: General: There is distension. Palpations: There is no mass. Tenderness: There is no abdominal tenderness. Musculoskeletal: Right lower leg: No edema. Left lower leg: No edema. Neurological: Mental Status: She is alert. Diagnostic Studies I have personally reviewed labs. I have reviewed the following imaging reports: CT Angio Abd-Pelvis W and or WO IV Contrast Result Date: 08/15/2025 IMPRESSION: 1. No evidence of aortic dissection or aneurysm in the abdomen or pelvis. 2. Small 7 mmhypodensity in the pancreatic head, likely side branch IPMN. Recommend follow-up CT in one year. Imaging Follow-up #[id number]#: Recommend CT of the Abdomen with contrast in 1 year. Approved by Angelica Mcguire DO on 08/15/2025 7:33 PM EST I have personally reviewed the images and I agree with this report.Report Verified by: Mynor Genao MD at 08/15/2025 7:[address] Angio Chest W and or WO Result Date: 08/15/2025 IMPRESSION: 1. Status post TAVR with a small intrastent filling defect along the valve leaflet, favored represent a small thrombus. 2. No evidence of aortic dissection. 3. Additional ancillary findings as above. CRITICAL RESULT: These findings were discussed with Dr. Sergio Infante on 08/15/2025 5:10PM EST by telephone. They confirmed that they understood the findings communicated to them. #[id number]# Report Verified by: Alberto Hathaway MD at 08/15/2025 5:16 PM EST Assessment & Plan Nellie Alves is a 59 y.o. with PMH of aortic stenosis s/p TAVR (2022), CAD s/p stents x4 (2022), COPD, HTN, GERD here after initial presentation of shortness of breath and presyncope, found to have possible thrombus on TAVR valve. TTE yesterday 08/16/25 shows normal EF 60-65%, normal mean gradient of 6. FIDEL pending, awaiting ENT clearance based on known zenker's diverticulum. Assessment & Plan Aortic stenosis S/P TAVR (transcatheter aortic valve replacement) Filling defect on imaging study Repeat CT angio chest here found to have TAVR with small intrastent filling defect along the valve leaflet, favored to represent small thrombus. No evidence of aortic dissection. CT surgery evaluated, no surgical intervention indicated however recommended cardiology workup. Orders should be received from [facility] by morning. BNP 475 on 08/16/25. - TTE 08/16/25, normal systolic function LVEF 60-65%, mean gradient 6 - FIDEL ordered; pending, awaiting ENT clearance (zenker diverticulum) - Blood cultures ordered; pending (r/o endocarditis) - heparin gtt Lightheadedness Shortness of breath Patient initially presented with presyncopal episodes while undergoing outpatient elective PFT for COPD evaluation. Likely orthostatic +/- neurogenic from dysautonomia +/- vasovagal given history of episodes and elicitation after valsalva. - Encourage PO intake - Continuous tele COPD (chronic obstructive pulmonary disease) ([facility]) Possibly having a COPDe, will consider starting abx / pred once fluid status is better determined. - Goal O2 sat 88-92% - Continue anoroellipta/asmanex - Albuterol PRN CAD (coronary artery disease) Status post coronary artery stent placement History of stent placement post HI in 2022, troponins here 19->17. Lactate 4.2- >2.5, possiblyfrom decreased perfusion after being on esmolol and diltiazem drip. - Continue ASA, statin - Lipid panel; LDL 81, HDL 82, Triglycerides 124 Aortic aneurysm ([facility]) Transferred to [facility] for concern of aortic dissection, was sent with an esmolol and diltiazem drip. Repeat imaging here showed no evidence of dissection, CT Surgery would still like to have outpatientfollow-up for her ascending aortic aneurysm which is below threshold for elective surgical repair. On imaging here showing thoracic aorta as 4.0cm. 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 Stated she has workup on this already and has a procedure scheduled for repair. - ENT consult; pending - assess risk for FIDEL w/ hx of zenker diverticulum GERD (gastroesophageal reflux disease) - continue PPI Allergies - continue certirizine DVT Prophylaxis: subcutaneous heparin (prophylaxis) Code Status: Full Code Medical Readiness for Discharge: 2-4 Days ASHWIN PUGA MD Neurology PGY1 Cardiology Wards 08/17/2025 9:07 AM Cosigned by Quita Ricketts MD at 08/17/2025 12:43 PM EST Associated attestation - Quita Ricketts MD - 08/17/2025 12:43 PM EST I have seen and examined this patient with the resident/fellow and have independently reviewed all the pertinent clinical data. I agree with the above evaluation and plan with the following additions/exceptions/observations: I worry about FIDEL regarding the Zenker's Would try CT cardiac first. If thrombus is read out may just do empiric AC. Normal gradients on echo here across the TAVR * Ernesto Felix, DO - 08/16/2025 9:09 AM EST Cardiology - Echo Lab Progress Note FIDEL request: indication for further assessment of possible TAVR associated thrombus Ms Alves is a 59 yo femal with pmhx of COPD, HTN, CAD s/p PCI x4 and severe aortic stenosis s/p TAVR(2022). Initially presented to outside hospital for lightheadedness and shortness of breath. CT Chest imaging at OSH concerning for new ascending aortic dissection so transferred to [facility] for CT surgery evaluation. Gated CTA Chest here showed no avidence of aortic dissection but did show small intrastent filling defect along TAVR leaflet concerning for valve associated thrombus. Upon review with patient she reports she has been told in past she has a history of zenker diverticulum. Will plan to first assess with TTE and primary team to involve GI for further assessment. Will hold off on FIDEL for now pending further work up. Ernesto Felix DO Discussed with cardiology wards attending, Dr. Forrest. * Ashwin Puga MD - 08/16/2025 8:34 AM EST [facility] Internal Medicine - Progress Note Team: Cardiology Mae Chief Concern / Reason for Follow-Up Shortness of breath, filling defect of valve leaflet seen on imaging Interval History NAEO, VSS Patient was admitted last night, seen this morning in no acute distress with no acute complaints. Still requiring 3L oxygen saturating at 92%, which would be a new requirement for her. Her white blood cell count has elevated this morning, however patient still afebrile and with lactate downtrendingthere is lower suspicion for active infection. BNP this morning elevated to 475. Plan: Determine prosthetic valve thrombosis vs vegetation based on CT chest angio image findings. - TTE ordered; pending - FIDEL ordered; pending - Continue on heparin gtt - ESR / CRP ordered; pending - E consult for ENT; pending - FIDEL risk due to history of zenker diverticulum Review of Systems ROS Physical Exam Temp: [97.5 ??F (36.4 ??C)-98.4 ??F (36.9 ??C)] 97.7 ??F (36.5 ??C) Heart Rate: [66-89] 69 Resp: [16-21] 16 BP: (95-130)/(60-89) 121/80 Physical Exam Constitutional: Appearance: Normal appearance. HENT: Head: Normocephalic and atraumatic. Eyes: Extraocular Movements: Extraocular movements intact. Cardiovascular: Rate and Rhythm: Normal rate and regular rhythm. Heart sounds: Murmur heard. Pulmonary: Effort: Pulmonary effort is normal. Breath sounds: Wheezing present. Abdominal: General: There is distension. Palpations: There is no mass. Tenderness: There is no abdominal tenderness. Musculoskeletal: Right lower leg: No edema. Left lower leg: No edema. Neurological: Mental Status: She is alert. Diagnostic Studies I have personally reviewed labs. I have reviewed the following imaging reports: CT Angio Abd-Pelvis W and or WO IV Contrast Result Date: 08/15/2025 IMPRESSION: 1. No evidence of aortic dissection or aneurysm in the abdomen or pelvis. 2. Small 7 mmhypodensity in the pancreatic head, likely side branch IPMN. Recommend follow-up CT in one year. Imaging Follow-up #[id number]#: Recommend CT of the Abdomen with contrast in 1 year. Approved by Angleica Mcguire DO on 08/15/2025 7:33 PM EST I have personally reviewed the images and I agree with this report.Report Verified by: Mynor Genoa MD at 08/15/2025 7:[address] Angio Chest W and or WO Result Date: 08/15/2025 IMPRESSION: 1. Status post TAVR with a small intrastent filling defect along the valve leaflet, favored represent a small thrombus. 2. No evidence of aortic dissection. 3. Additional ancillary findings as above. CRITICAL RESULT: These findings were discussed with Dr. Sergio Infante on 08/15/2025 5:10PM EST by telephone. They confirmed that they understood the findings communicated to them. #[id number]# Report Verified by: Alberto Hathaway MD at 08/15/2025 5:16 PM EST Assessment & Plan Nellie Alves is a 59 y.o. with PMH of aortic stenosis s/p TAVR (2022), CAD s/p stents x4 (2022), COPD, HTN, GERD here after initial presentation of shortness of breath and presyncope, found to have possible thrombus on TAVR valve. TTE/FIDEL pending for further workup. Assessment & Plan Aortic stenosis S/P TAVR (transcatheter aortic valve replacement) Filling defect on imaging study Repeat CT angio chest here found to have TAVR with small intrastent filling defect along the valve leaflet, favored to represent small thrombus. No evidence of aortic dissection. CT surgery evaluated, no surgical intervention indicated however recommended cardiology workup. Orders should be received from [facility] by morning. - TTE + FIDEL ordered; pending - Blood cultures ordered; pending (r/o endocarditis) - ESR/CRP ordered; pending - heparin gtt Lightheadedness Shortness of breath Patient initially presented with presyncopal episodes while undergoing outpatient elective PFT for COPD evaluation. Likely orthostatic +/- neurogenic from dysautonomia +/- vasovagal given history of episodes and elicitation after valsalva. - Encourage PO intake - Continuous tele COPD (chronic obstructive pulmonary disease) ([facility]) Possibly having a COPDe, will consider starting abx / pred once fluid status is better determined. - Goal O2 sat 88-92% - Continue anoroellipta/asmanex - Albuterol PRN CAD (coronary artery disease) Status post coronary artery stent placement History of stent placement post HI in 2022, troponins here 19->17. Lactate 4.2- >2.5, possiblyfrom decreased perfusion after being on esmolol and diltiazem drip. - Continue ASA, statin - Lipid panel; pending Aortic aneurysm ([facility]) Transferred to [facility] for concern of aortic dissection, was sent with an esmolol and diltiazem drip. Repeat imaging here showed no evidence of dissection, CT Surgery would still like to have outpatientfollow-up for her ascending aortic aneurysm which is below threshold for elective surgical repair. On imaging here showing thoracic aorta as 4.0cm. 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 Stated she has workup on this already and has a procedure scheduled for repair. - ENT e consult; pending - assess risk for FIDEL w/ hx of zenker diverticulum GERD (gastroesophageal reflux disease) - continue PPI Allergies - continue certirizine DVT Prophylaxis: subcutaneous heparin (prophylaxis) Code Status: Full Code Medical Readiness for Discharge: 2-4 Days ASHWIN PUGA MD Neurology PGY1 Cardiology Wards 08/16/2025 8:25 AM Cosigned by Liza Forrest MD at 08/16/2025 3:18 PM EST Associated attestation - Liza Forrest MD - 08/16/2025 3:18 PM EST I have personally obtained the history, performed the physical examination, reviewed the pertinent laboratory and imaging data, discussed the case with the house staff on 08/16/2025 and agree with the assessment and plan. Please refer to H&P for more details. Liza Forrest MD * Jenaro Herman, PharmD - 08/15/2025 4:13 PM EST Clinical Pharmacy Progress Note: Pharmacotherapy Stewardship Encounter Date: 08/15/2025 Attending Physician: Amaris Mary MD Subjective: Nellie Alves is a(n) 59 y.o. female presenting to the hospital for <principal problem not specified>. Assessment/Plan: A comprehensive medication evaluation was conducted through the [employer] electronic medical record review for drug-drug, drug-disease, and drug-nutrition interactions appropriate therapeutic indications;dosing; monitoring (e.g., serum concentrations; clinical response; safety/efficacy); and route(s) of administration. Opportunities Drug-Disease Interaction(s): Patient transferred from OSH for concerns of AAA. Patient arrived on diltiazem monotherapy (15 mg/hr) as EMS transport ran out of esmolol infusion. Upon arrival to [facility], patient BP was 116/80's and HR was 84-88. Recommended esmolol infusion for HR goal <60 and Nicardipine infusion to maintain SBP <120 while awaiting confirmation with imaging. Recommendations from AHA 2024 Hypertension guidelines and 2021 AHA Management of AAS: Kodi DW, Jose JEAN-PAUL, et al. 2024 AHA/ACC/AANP/AAPA/ABC/ACCP/ACPM/AGS/AMA/ASPC/NMA/PCNA/SGIM Guideline for the Prevention, Detection, Evaluation and Management of High Blood Pressure in Adults: A Report of the [place] College [employer] Cardiology/[place] Heart Association Joint Committee on Clinical Practice Guidelines. Hypertension. 2024;82(10):t944-k537. doi:10.1161/[id number] Gary EM, Oscar O, Ming Smith 3rd, et al. 2021 ACC/AHA Guideline for the Diagnosis and Management of Aortic Disease: A Report of the [place] [employer] Association/[place] College of Cardiology Joint Committee on Clinical Practice Guidelines. Circulation. 2021;146(24):d634-r877. doi:10. 1161/CIR.[id number] Thank you for allowing me to participate in the care of Nellie Alves as a part of the Emergency Medicine Team. Jenaro Herman PharmD Clinical Vector Control Specialist, Emergency Medicine Preferred Communication via [employer] Clinical [facility] Pager: [phone] 08/15/2025 4:14 PM Patient Characteristics: Patient Height, Weight, and Body Mass Index There is no height or weight on file to calculate BMI. PMH No past medical history on file. No past surgical history on file. Nellie Alves has no history on file for tobacco use, alcohol use, and drug use. Vital Sign Range (24 Hours) Heart Rate: [79-89] 79 Resp: [18] 18 BP: (104-116)/(68-89) 104/68 Allergies Allergies as of 08/15/2025 ??? (Not on File) Lab History No results found for: WBC , HGB , PLT No results found for: NA , K , CL , CO2 , BUN , CREATINEP , GLUCOSE , CALCIUM , MG , PHOS No results found for: INR , PROTIME , APTT No results found for: ANTIXAF No results found for: BILITOT , AST , ALT , ALBUMIN No results found for: [id number] Microbiology History Microbiology Results No orders found from 08/08/2025 to 08/16/2025. Current Medications Current Facility-Administered Medications Medication Dose Frequency Provider Last Admin ??? esmolol (BREVIBLOC) IV infusion 0-200 mcg/kg/min Continuous Luis Alfredo Dodd MD 25 mcg/kg/min at 08/15/25 1613 ??? niCARdipine 0-15 mg/hr Continuous Luis Alfredo Dodd MD No current outpatient medications on file. Medications esmolol (BREVIBLOC) 2000 mg (20 mg/mL) in Sodium Chloride (iso-osm) 100 mL IV infusion (25 mcg/kg/min ?? 73 kg Intravenous New Bag 08/15/25 1613) niCARdipine (CARDENE) 40 mg/200 mL in sodium chloride; iso-osmotic (has no administration in time range) Recent Serum Drug Concentrations N/A Current Diet Diet Orders None * Amaris Mary MD - 08/15/2025 4:02 PM EST ED Attending Attestation Note Date of service: 08/15/2025 This patient was seen by the resident physician. I have seen and examined the patient, agree with the workup, evaluation, management and diagnosis. The care plan has been discussed and I concur. I have reviewed the ECG and concur with the resident's interpretation. My assessment reveals a 59 y.o. female presents to the ED from outside hospital accepted by CT surgery for possible aortic dissection. She has a history of aortic valve repair and had a CTPA performed which showed questionable intimal flap of the arch. [facility] thus [facility] to for definitive testing and management. The patient does arrive on an esmolol drip but otherwise denies any complaints. VS reviewed. Exam unremarkable, movesall 4 extremities appropriately and all are well perfused, normal mentation, not writhing. Amaris Mary MD, CONNIE Emergency Medicine documented in this encounter H&P Notes * Ashwin Puga MD - 08/15/2025 7:30 PM EST [facility] Cardiology Wards - History and Physical Chief Concern SOB and Presyncope during outpatient PFT, found to have thromb History of Present Illness The patient is a 59 y.o. female with a history of aortic stenosis s/p TAVR (2022), GERD, CAD s/p multiple PCIs (2022), presenting to the hospital as a transfer from OSH after she experienced an episode of lightheadedness and presyncope while undergoing an elective PFT to evaluate her COPD. She was i nitially admitted at [facility] where a CT-PA was obtained showing a possible new intimal flap in the ascending aorta. She was started on an esmolol and diltiazem drip and [facility] of [facility] dissection While here patient remained asymptomatic, a repeat CT angio chest w/wo was obtained showing her TAVR with a small intrastent filling defect along the valve leaflet, reading favored a small thrombus. No evidence of aortic dissection was found and her drips were stopped. Otherwise workup showed troponin of 19->17, Lactate of 4.2->2.5. Speaking to patient at bedside, stated she has been having lightheaded spells for past few months that would include symptoms of right arm and leg shaking and falls. She reported to have extensive MRI and CT imaging done for workup but stated they could not find anything. Patient also reported a persistent cough with phlegm production that has effected her appetite and has lead to vomiting on occasion. She stated she has a a known pocket in her throat that causes food and pills to get stuck (diverticulum?) and has a procedure already scheduled. While here she has had a new oxygen requirement of 3L. Review of Systems Review of Systems Constitutional: Positive for weight loss. Negative for chills and fever. HENT: Positive for sore throat. Respiratory: Positive for cough, sputum production and shortness of breath. Cardiovascular: Positive for chest pain (pleuritic pain). Negative for palpitations, orthopnea and PND. Gastrointestinal: Positive for nausea and vomiting. Negative for abdominal pain, constipation and diarrhea. Genitourinary: Negative. Negative for dysuria and urgency. Musculoskeletal: Positive for falls. Skin: Positive for itching. Negative for rash. Neurological: Positive for headaches. Negative for loss of consciousness. 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 Appearance: Normal appearance. She is not ill-appearing. HENT: Head: Normocephalic and atraumatic. Eyes: Extraocular Movements: Extraocular movements intact. Cardiovascular: Rate and Rhythm: Normal rate and regular rhythm. Pulses: Normal pulses. Heart sounds: Murmur heard. Pulmonary: Effort: Pulmonary effort is normal. Breath sounds: Normal breath sounds. Abdominal: General: There is distension. Palpations: There is no mass. Tenderness: There is no abdominal tenderness. There is no guarding. Musculoskeletal: General: No swelling or tenderness. Normal range of motion. Cervical back: Normal range of motion and neck supple. Right lower leg: No edema. Left lower leg: No edema. Skin: General: Skin is warm and dry. Neurological: Mental Status: She is alert and oriented to person, place, and time. Psychiatric: Mood and Affect: Mood normal. Behavior: Behavior normal. Diagnostic Studies I have personally reviewed labs. I have reviewed the following imaging reports: CT Angio Chest W and or WO Result Date: 08/15/2025 IMPRESSION: 1. Status post TAVR with a small intrastent filling defect along the valve leaflet, favored represent a small thrombus. 2. No evidence of aortic dissection. 3. Additional ancillary findings as above. CRITICAL RESULT: These findings were discussed with Dr. Sergio Infante on 08/15/2025 5:10PM EST by telephone. They confirmed that they understood the findings communicated to them. #[id number] Report Verified by: Alberto Hathaway MD at 08/15/2025 5:16 PM EST Assessment & Plan Nellie Alves is a 59 y.o. with PMH of aortic stenosis s/p TAVR (2022), CAD s/p stents x4 (2022), COPD, HTN, GERD here after initial presentation of shortness of breath and presyncope, found to have possible thrombus on TAVR valve. TTE/FIDEL pending for further workup. Assessment & Plan Aortic stenosis S/P TAVR (transcatheter aortic valve replacement) Filling defect on imaging study Repeat CT angio chest here found to have TAVR with small intrastent filling defect along the valve leaflet, favored to represent small thrombus. No evidence of aortic dissection. CT surgery evaluated, no surgical intervention indicated however recommended cardiology workup. Orders should be received from [facility] by morning. - TTE + FIDEL ordered; pending - Blood cultures ordered; pending (r/o endocarditis) - heparin gtt Lightheadedness Shortness of breath Patient initially presented with presyncopal episodes while undergoing outpatient elective PFT for COPD evaluation. Likely orthostatic +/- neurogenic from dysautonomia +/- vasovagal given history of episodes and elicitation after valsalva. - Encourage PO intake - Continuous tele COPD (chronic obstructive pulmonary disease) ([facility]) - Goal O2 sat 88-92% - Continue anoroellipta/asmanex - Albuterol PRN CAD (coronary artery disease) Status post coronary artery stent placement History of stent placement post HI in 2022, troponins here 19->17. Lactate 4.2- >2.5, possiblyfrom decreased perfusion after being on esmolol and diltiazem drip. - Continue ASA, statin Aortic aneurysm ([facility]) Transferred to [facility] for concern of aortic dissection, was sent with an esmolol and diltiazem drip. Repeat imaging here showed no evidence of dissection, CT Surgery would still like to have outpatientfollow-up for her ascending aortic aneurysm which is below threshold for elective surgical repair. - Follow-up outpatient CT surgery GERD (gastroesophageal reflux disease) - continue PPI Allergies - continue certirizine Prior to Admission Med Status: Medications confirmed and reconciled DVT Prophylaxis: subcutaneous heparin (prophylaxis) Code Status: Full Code ASHWIN PUGA MD 08/15/2025 7:17 PM [1] Social History Tobacco Use Smoking status: Every Day Current packs/day: 0.50 Types: Cigarettes Substance Use Topics Alcohol use: Yes Alcohol/week: 3.0 standard drinks of alcohol Types: 3 Cans of beer per week Comment: occasional, 3-4 beers per week Cosigned by Liza Forrest MD at 08/20/2025 12:45 PM EST Associated attestation - Liza Forrest MD - 08/20/2025 12:45 PM EST I have personally obtained the history, performed the physical examination, reviewed the pertinent laboratory and imaging data, discussed the case with the house staff on 08/16/2025 and agree with the assessment and plan. 59-year-old female with past medical history of aortic stenosis s/p TAVR [2022], CAD s/p PCI comingin as a transfer from outside hospital. She initially presented to the outside hospital with shortness of breath, and lightheadedness. Nongated CTPA done at the outside hospital showed findings that may be concerning for aortic dissection. Gated scan done here ruled out the possibility of aortic dissection but which revealed a filling defect in the prosthetic valve that may be concerning for a thrombus. Patient is afebrile and not tachycardic with a mildly elevated WBC count. Hemodynamically stable. On 3 L of oxygen which is a new requirement (acute hypoxic respiratory failure). Initial plan was to perform a transthoracic echocardiogram to rule out valvular dysfunction/dehiscence and to obtain the velocities and gradients across the aortic valve; then FIDEL to visualize the bioprosthetic valve better and identify the filling defect noted on CT scan. However upon questioning the patient, she seems to have a history of Zenker's diverticulum that was being planned for operation. As such, will defer FIDEL for now until evaluated by GI/ENT team. Awaiting TTE. Blood cultures ordered. No concerns for septic emboli otherwise; continue heparin drip. Can transition to warfarin after further evaluation confirms diagnosis of a thrombus. Patient does not appear clinically decompensated currentlynecessitating urgent surgical consultation. Patient does have wheezing on auscultation but does nothave any obvious pulmonary/pleural space pathology on CT scan. BNP elevated at 475. Diuresis with Lasix 40 IV once today. Liza Forrest MD * Luis Alfredo Dodd MD - 08/15/2025 4:07 PM EST [facility] ED Note Date of Service: 08/15/2025 Reason for Visit: Medical Problem Patient History FRED Alves is a 59 y.o. female with PMH of TAVR, CAD s/p PCI/KARINA, known ascending aortic aneurysm whopresents to the ED from outside hospital ED ([facility]) for evaluation of a possible new thoracic aortic dissection. Patient states she presented initially to an outpatient doctor for what appears to be spirometry testing. She states that during the test she became lightheaded and dizzy so she was further referred to the ER for what appears to be a PE workup. A CTPA was obtained which demonstrated no PE as well as a stable ascending aortic aneurysm but there was concern for a newtiny intimal flap on the left side of the aorta best seen on images #[id number] of series 5, which is new, and worrisome for subtle dissection. The case was discussed with Dr. Rik Jolly at [facility] cardiothoracic surgery who accepted her for transfer. Patient arrives to the on diltiazem and esmolol gtt. At time exam, patient denies any chest pain or shortness of breath. She complains that her lower back started hurting last night but she denies any ripping/tearing pain. She denies any numbness or weakness in any extremity. She is not currently lightheaded No past medical history on file. No past surgical history on file. Patient has no history on file for tobacco use, alcohol use, and drug use. Previous Medications No medications on file Allergies: Allergies as of 08/15/2025 (Not on File) Review of Systems For patients able to communicate, pertinent positive and negative findings are documented in the HPI. Physical Exam Vitals: 08/15/25 1602 08/15/25 1605 BP: 116/89 BP Location: Right upper arm Patient Position: Sitting BP Cuff Size: Regular Pulse: 89 Resp: 18 Weight: 160 lb 15 oz (73 kg) General: 59 y.o. female, overall non-toxic appearing. Head: Normocephalic, atraumatic. Eyes: Anicteric. Pupils reactive. No discharge from eyes. ENT: External ears normal. Oropharynx patent. Moist mucus membranes. Neck: Supple, trachea midline. Normal ROM. Pulmonary: No respiratory distress. Lungs clear to auscultation bilaterally. No increased work of breathing. Cardiac: Regular rate in the 80s. Regular rhythm. 4/6 holosystolic murmur. SBP in the 110s Abdomen: Soft. Non-distended. Non-tender. No rebound or guarding. No CVA tenderness Extremities: Warm and well perfused. Lower extremities symmetric in size. No calf tenderness. No peripheral edema. Vascular: Palpable radial and DP pulses bilaterally. No cyanosis. Capillary refill <3 seconds. Skin: Dry, non-diaphoretic. No rashes. No jaundice or pallor. Neuro: Awake and alert, conversational and interactive, following commands. No facial asymmetry. Moves all 4 extremities to command. Sensation to light touch grossly intact in all 4 extremities Psych: Normal mood and affect. Diagnostic Studies Labs: Please see EMR for labs obtained during this patient encounter Radiology: Please see EMR for images obtained during this patient encounter EKG: EKG Interpretation: Rhythm: Normal sinus rhythm Rate: 85 bpm [place]: Left axis deviation Intervals: QTc 504 and QRS 90 Conduction: Left anterior fascicular block Q Waves: none ST Segments: No acute changes T Waves: No acute change Ectopy: None Comparison: No old EKG available for comparison Clinical Impression: LAFB, poor R wave progression suggest old anterior infarct, prolonged QTc ED Course and MDM Nellie Alves is a 59 y.o. female presenting with concern for a new thoracic aortic dissection incidentally found on CT PA at [facility] today. On initial evaluation, the patient was well-appearing, hemodynamically stable, not tachycardic or tachypneic, normoxic on room air, afebrile. She arrives on diltiazem and esmolol drips with heart rate in the 80s and systolic blood pressure in the 110s. She is neurovascularly intact on my exam with symmetric and strong palpable radial and dorsalis pedis pulses bilaterally and normal peripheral motor function in all 4 extremities without any sensory or motor deficits. She has no current upper back pain, chest pain, shortness of breath, or lightheadedness and cu rrently appears asymptomatic. It appears the CT PA was obtained given her shortness of breath whileperforming a PFT which suspect may be related to a URI, but the CTPA incidentally showed a possiblethoracic aortic dissection flap although the study was not properly gated for an aorta evaluation. She has no signs or symptoms of an acute thoracic or dissection currently. EKG was reviewed and demonstrates no evidence of ischemia. She does not appear to be on any anti-coagulation. Will plan for formal CTA dissection protocol to evaluate for a possible thoracic attic dissection in the meantime we will start her on esmolol for heart rate goal less than 60 and nicardipine for systolic blood pressure goal less than 140 for aortic impulse control. ED Course as of 08/15/25 1859 Sofía Aug 15, [address] Angio Chest W and or WO CT with filling defect along the valve for TAVR. Discussed with CT surgery who advises no acute surgical intervention but recommends cardiology evaluation. Discontinued esmolol and nicardipine as there is no indication for impulse control this time. Labs are notable for lactate of 4.2 and mildly elevated troponins 19 both which are nonspecific. Her extremities are warm without peripheral edema so have no concern for cardiogenic shock. Her workupdemonstrates no evidence of infection so the source of his lactate is unclear, but I suspect her lactate elevation and mild troponin elevation is likely iatrogenic decreased perfusion in the setting of being on impulse control medications to target an aggressive blood pressure goal. Anti-hypertensive gtts were stopped and will repeat lactate and troponin to ensure not worsening, but feel patient is stable for floor at this time. Will start patient on heparin drip for this possible valvular thrombus admit patient to cardiology for further workup. 181 Lactate, Endy(!): 4.2 8 High Sensitivity Troponin(!): 19 Medications received during this ED visit: Medications esmolol (BREVIBLOC) 2000 mg (20 mg/mL) in Sodium Chloride (iso-osm) 100 mL IV infusion (has no administration in time range) niCARdipine (CARDENE) 40 mg/200 mL in sodium chloride; iso-osmotic (has no administration in time range) Medical Decision Making Amount and/or Complexity of Data Reviewed Radiology: ordered. ECG/medicine tests: ordered. Risk Prescription drug management. Impression 1. Thrombus Plan The patient will be admitted to cardiology. The patient will continue to be monitored here in the emergency department until which time she is moved to her new treatment location. Workup, treatment, and diagnosis were discussed with the patient and/or family members; the patient agrees to the plan and all questions were addressed and answered. No future appointments. The patient was evaluated by myself and the ED Attending Physician, Amaris Mary MD. Allmanagement and disposition plans were discussed and agreed upon. LUIS ALFREDO DODD MD Emergency Medicine, PGY-3 08/15/2025 Luis Alfredo Dodd MD Resident 08/15/25 1900 Cosigned by Amaris Mary MD at 08/15/2025 7:07 PM EST documented in this encounter Consult Notes * Alverto Hector MD - 08/17/2025 10:00 AM ESTAssociated Order(s): IP CONSULT TO ENT [facility] DIVISION OF OTOLARYNGOLOGY- HEAD & NECK SURGERY GENERAL INPATIENT CONSULTATION Patient Name: Nellie Alves Requesting Attending: Liza Forrest MD Consulting Attending: Holland Sesay MD Service Requesting Consult: Cardiology Wards Primary Care Physician: Letty Pcp Date of Admission: 08/15/2025 Date of Consultation: 08/17/2025 ASSESSMENT Nellie is a 59 y.o. female with known Zenker???s diverticulum diagnosed approximately two months ago after a swallow study/scope by an outside GI team in [place], presenting during current hospitalization for cardiac evaluation in the setting of transient filling defect along TAVR favoring small thrombus. ENT consulted to assess safety of planned transesophageal procedure (FIDEL) in the setting of Zenker???s diverticulum. Symptoms from the diverticulum include progressive dysphagia to solids (able to tolerate only liquids/soft foods), frequent regurgitation/coughing of undigested food, and unintentional weight loss (160 ? 149 lb over past few weeks). No prior surgical repair; tentative repair date reportedly scheduled for Sep. No acute airway distress today; neck and oral cavity exam withinnormal limits. PLAN - Discussed plan with cardiology team, at this time would not recommend pursuing FIDEL given risk of entering Zenker's [ouch with blind approach to placement of FIDEL probe and risk of damage/rupture. - At this time, discussed recommendation for proceeding with cardiac CT as adjunct for evaluation of TAVR thrombus. - If cardiac CT not sufficient and patient required FIDEL, encouraged team to reach out for further discussion about safest next steps - Please reach out with any questions or concerns This assessment and plan, and all management questions were discussed with the above mentioned ENT attending who agreed. REASON FOR CONSULT: Advice requested regarding safety of FIDEL in the setting of zenker's diverticulum. HISTORY OF PRESENT ILLNESS Nellie is a(n) 59 y.o. female with a history of aortic stenosis s/p TAVR (2022), CAD s/p stents x4 (2022), COPD, HTN, GERD who presented with shortness of breath and concern for possible thrombus on TAVR valve. Patient reports diagnosis of Zenker???s diverticulum made ~2 months ago by GI team in [place] following a swallow test. No prior repair. Symptoms: inability to tolerate solid foods, relianceon liquids/soft foods (egg salad, soup, fruit); episode of meatloaf obstruction requiring self-clearance. Frequent coughing/regurgitation of undigested food. Reports weight loss from 160 lb to 149 lbover several weeks. Primary team requested ENT input prior to planned transesophageal echocardiogram . Problem List[1] Past Surgical History: Procedure Laterality Date CARDIAC CATHETERIZATION TAVR / ANT Family History Problem Relation Age of Onset Diabetes Mother Heart disease Mother Hypertension Mother Pancreatic Cancer Father Breast Cancer Maternal Grandmother Cancer Maternal Grandfather Cirrhosis Maternal Grandfather Social History Socioeconomic History Marital status: Spouse name: Not on file Number of children: Not on file Years of education: Not on file Highest education level: Not on file Occupational History Not on file Tobacco Use Smoking status: Every Day Current packs/day: 0.50 Types: Cigarettes Smokeless tobacco: Not on file Substance and Sexual Activity Alcohol use: Yes Alcohol/week: 6.0 - 12.0 standard drinks of alcohol Types: 6 - 12 Standard drinks or equivalent per week Comment: occasional, 3-4 beers per week Drug use: Not on file Sexual activity: Not on file Other Topics Concern Not on file Social History Narrative Not on file Social Drivers of Health Financial Resource Strain: High Risk (04/15/2023) Received from [facility] Overall Financial Resource Strain (CARDIA) Difficulty of Paying Living Expenses: Very hard Food Insecurity: Food Insecurity Present (08/16/2025) Hunger Vital Sign Worried About Running Out of Food in the Last Year: Sometimes true Ran Out of Food in the Last Year: Sometimes true Transportation Needs: No Transportation Needs (08/16/2025) PRAPARE - Transportation Lack of Transportation (Medical): No Lack of Transportation (Non-Medical): No Physical Activity: Inactive (04/15/2023) Received from [facility] Exercise Vital Sign On average, how many days per week do you engage in moderate to strenuous exercise (like a brisk walk)?: 0 days On average, how many minutes do you engage in exercise at this level?: 0 min Stress: Not on file Social Connections: Not on file Intimate Partner Violence: Not At Risk (08/16/2025) Humiliation, Afraid, Rape, and Kick questionnaire Fear of Current or Ex-Partner: No Emotionally Abused: No Physically Abused: No Sexually Abused: No Housing Stability: Low Risk (08/16/2025) Housing Stability Vital Sign Unable to Pay for Housing in the Last Year: No Number of Times Moved in the Last Year: 0 Homeless in the Last Year: No DRUG/FOOD ALLERGIES: Codeine CURRENT MEDICATIONS Home Medications Medication Sig Taking? Last Dose aspirin 81 MG chewable tablet Chew 1 tablet (81 mg total) by mouth daily. Yes 08/14/2025 atorvastatin (LIPITOR) 80 MG tablet Take 1 tablet (80 mg total) by mouth daily. Yes 08/14/2025 vixdvvddbes-uslkplnny-haduwssq (TRELEGY ELLIPTA) 100-62.5-25 mcg DsDv Inhale 1 puff into the lungs daily. Yes 08/14/2025 furosemide (LASIX) 20 MG tablet Take 1 tablet (20 mg total) by mouth daily as needed. Yes 08/14/2025 levocetirizine (XYZAL) 5 MG tablet Take 1 tablet (5 mg total) by mouth daily. Yes 08/14/2025 metoprolol tartrate (LOPRESSOR) 50 MG tablet Take 1 tablet (50 mg total) by mouth 2 times a day. Yes 08/14/2025 pantoprazole (PROTONIX) 40 MG tablet Take 1 tablet (40 mg total) by mouth daily. Yes 08/14/2025 traZODone (DESYREL) 50 MG tablet Take 1 tablet (50 mg total) by mouth daily. Yes 08/14/2025 VENTOLIN HFA 90 mcg/actuation inhaler Inhale 2 puffs into the lungs every 6 hours as needed for Wheezing or Shortness of Breath. Yes 08/14/2025 Inpatient Meds: Scheduled: aspirin 81 mg Oral Daily 0900 atorvastatin 80 mg Oral Daily 0900 cetirizine 10 mg Oral Daily 0900 metoprolol tartrate 50 mg Oral BID umeclidinium-vilanteroL 1 puff Inhalation RT Daily And mometasone 220 mcg/puff 1 puff Inhalation RT Daily pantoprazole 40 mg Oral Daily 0900 traZODone 50 mg Oral Nightly (2100) Continuous: heparin 20 Units/kg/hr (08/17/25 1102) PRN:acetaminophen, albuterol, heparin (porcine) AND heparin (porcine) AND heparin, ipratropium-albuteroL REVIEW OF SYSTEMS Negative unless otherwise discussed above PHYSICAL EXAM BP 110/64 (BP Location: Right upper arm, Patient Position: Sitting) Pulse 71 Temp 97.7 ??F (36.5 ??C) (Oral) Resp 18 Ht 5' (1.524 m) Wt 151 lb 11.2 oz (68.8 kg) SpO2 93% BMI 29.63 kg/m?? GENERAL: No Acute Distress, Alert and Oriented EYES: PERRLA, EOMI, Anti-icteric NOSE: No epistaxis, nasal mucosa within normal limits, no purulent drainage EARS: Normal external canal appearance, EAC patent bilaterally, TMs bilaterally within normal limits with normal light reflex FACE: 1/6 House-Brackmann Scale, symmetric, sensation equal bilaterally ORAL CAVITY: No masses or lesions palpated, uvula is midline, moist mucous membranes NECK: Normal range of motion, no thyromegaly, trachea is midline, no lymphadenopathy, no neck masses, no crepitus CHEST: Normal respiratory effort, no retractions LABORATORY Past 24 hour labs: Lab Results Component Value Date WBC 8.5 08/17/2025 HGB 15.9 (H) 08/17/2025 HCT 46.8 (H) 08/17/2025 MCV 92.6 08/17/2025 PLT 133 (L) 08/17/2025 Lab Results Component Value Date GLUCOSE 159 (H) 08/17/2025 BUN 9 08/17/2025 CREATININE 0.51 (L) 08/17/2025 K 3.0 (L) 08/17/2025 NA 138 08/17/2025 CL 98 08/17/2025 CALCIUM 8.6 08/17/2025 Lab Results Component Value Date MG 1.7 08/17/2025 Lab Results Component Value Date PHOS 3.7 08/17/2025 Lab Results Component Value Date ALKPHOS 127 (H) 08/15/2025 ALT 74 (H) 08/15/2025 AST 77 (H) 08/15/2025 BILITOT 0.6 08/15/2025 ALBUMIN 3.7 08/17/2025 BILIDIRECT 0.1 08/15/2025 PROT 7.3 08/15/2025 No results found for: LDH No results found for: PTT No results found for: AMYLASE No results found for: LIPASE RADIOLOGY N/A [1] Patient Active Problem List Diagnosis S/P TAVR (transcatheter aortic valve replacement) Aortic stenosis Filling defect on imaging study Lightheadedness Shortness of breath COPD (chronic obstructive pulmonary disease) [facility]) CAD (coronary artery disease) Status post coronary artery stent placement GERD (gastroesophageal reflux disease) Allergies Aortic aneurysm ([facility]) Zenker diverticulum Cosigned by Holland Sesay MD at 08/19/2025 7:50 AM EST Associated attestation - Holland Sesay MD - 08/19/2025 7:50 AM EST agree * Jeimy Soriano RD - 08/16/2025 12:26 PM ESTAssociated Order(s): IP CONSULT TO NUTRITION SERVICES [facility] Medical Nutrition Therapy Reason for Completion: Consult (Provider or Nursing)/Initial Nutrition Assessment Recommendations/Nutrition Interventions: Continue current diet Start oral nutrition supplement:Boost TID Malnutrition Status Context: No malnutrition identified Energy Intake: Pt meeting estimated needs Unintended Weight Loss: Greater than 5% in 1 month Body Fat Wasting: No wasting present Muscle Wasting: No wasting present Attending/care team contacted for notification of malnutrition status: No Pertinent Information: Chief Complaint Patient presents with Medical Problem Nellie Alves is an 59 y.o.female, PMH significant for COPD, hypertension, coronary artery disease s/p cardiac stents x4 (2022), and aortic stenosis s/p TAVR in (2022) who presented to an outside hospitalfor evaluation of lightheadedness. The patient was undergoing elective pulmonary function testing for her COPD this morning when she strained herself, causing her to become lightheaded and short of breath. She was noted to be tachycardic to the 120's during this episode and hypoxic, so she was started on 3L NC. She was taken to [facility] where CT-PA was obtained. The local radiologist read it as having the beginning of a new intimal flap in the ascending aorta, so she was transferred here for further evaluation and management. E consult for ENT; pending - FIDEL risk due to history of zenker diverticulum HD#2, visited patient at bedside. She reported she occasionally has problems swallowing meat that is tough and stringy. She has lost 9-10# in the past month, does not have any N/V/D. Dietary Intake/History: Current Diet: Diet/Nutrition Orders Diet Regular(7) Frequency: Effective Now Number of Occurrences: Until Specified Order Questions: Suicide/Behavior Risk Modification? No PO Meal Intake: ANDERSON Appetite: [place] Estimated Nutrition Needs This Admission: ANDERSON, just admitted yesterday Feeding: Able to feed self Estimated Nutrition Needs (needs based on 68.8 kg CBW) Kcals/day: 4054-7448 (20-25 kcal/kg) Protein g/day: 69-83 (1-1.2 g/kg) Carbohydrate g/day: Carbohydrates are not restricted Fluid ml/day: ~1mL/kcal or per MD Anthropometrics: Height: Ht Readings from Last 1 Encounters: 08/16/25 5' (1.524 m) Current Weight: Wt Readings from Last 1 Encounters: 08/16/25 151 lb 11.2 oz (68.8 kg) BMI: Body mass index is 29.63 kg/m??. BMI Classification: Pre Obese: 25 - 29.9 [place] Body Weight: 100 lb (45.45 kg) +/- 10% Usual Body Weight: 160# (72.73 kg) Weight History: Wt Readings from Last 10 Encounters: 08/16/25 151 lb 11.2 oz (68.8 kg) Percent Weight Change: 5.6% (9#) decrease in past month Nutrition Related Labs: Lab Results Component Value Date CREATININE 0.32 (L) 08/16/2025 BUN 6 (L) 08/16/2025 NA 139 08/16/2025 K 3.7 08/16/2025 CL 101 08/16/2025 CO2 31 08/16/2025 Lab Results Component Value Date ALBUMIN 3.5 08/16/2025 No results found for: PREALBUMIN Lab Results Component Value Date CALCIUM 8.4 (L) 08/16/2025 PHOS 3.1 08/16/2025 Lab Results Component Value Date MG 2.2 08/16/2025 No results found for: POCGMD No results found for: HGBA1C No results found for: TRIG No results found for: CRP Lab Results Component Value Date GLUCOSE 101 (H) 08/16/2025 Medications: aspirin 81 mg Oral Daily 0900 atorvastatin 80 mg Oral Daily 0900 cetirizine 10 mg Oral Daily 0900 metoprolol tartrate 50 mg Oral BID umeclidinium-vilanteroL 1 puff Inhalation RT Daily And mometasone 220 mcg/puff 1 puff Inhalation RT Daily pantoprazole 40 mg Oral Daily 0900 traZODone 50 mg Oral Nightly (2100) Potential Nutrition Related Factors: Skin: Skin Integrity: Intact;Herbie Scale Score: 23 GI: No GI symptoms currently, tolerating current nutrition regimen Last BM: 08/16 Allergies: Allergies[1] Cultural Requests During Hospitalization: No Edema: none noted Chewing/Swallowing Issues: Yes, difficulty chewing some meats that are tough Nutrition Diagnosis: Problem: Inadequate oral intake Etiology: Difficulty chewing/swallowing Signs/Symptoms: Zenker's diverticulum Nutrition Monitoring and Evaluation: Goals: Patient will consume greater than or equal to 75% of meals for 3 consecutive days and Patient will consume 2 oral nutrition supplements/day during admission Goal Progress: New goal identified Indicators to Monitor: % of meals consumed (documented by nursing or patient report) and Number of oral nutrition supplements consumed per day Discharge Planning/Nutrition Transition of Care Plan: Discharge plan of care for nutrition ongoing pending clinical course Will follow per protocol. Jeimy Soriano RD [1] Allergies Allergen Reactions Robyn Richards * Ingrid Banks RN - 08/16/2025 11:03 AM EST HEALTH Care Management/Social Work Assessment Patient Information Patient Name: Nellie Alves Hospital Day: 1 Inpatient/Observation: Inpatient Admit Date: 08/15/2025 Admission Diagnosis: Thrombus [I82.90] Attending provider: Liza Forrest MD PCP: No Pcp Home Pharmacy: [facility] [address] [facility] [address] [facility] [place] [address] [facility] [address] Pertinent Medications Anticoagulation therapy: Yes Anticoagulant (Name of Drug): ASA New Diabetic: No Issues related to obtaining medications: none Payor Information Medical Insurance Coverage: Payor: GENERIC MANAGED MEDICAID / Plan: [facility] MANAGED MEDICAID / Product Type: Medicaid Mngd care / Secondary Payor: n/a Functional Assessment Functional Assessment Assessment Information Obtained From:: Patient, Chart Review May We Obtain Collateral Information From Family, Friends and Neighbors?: Yes Current Mental Status: Awake, Oriented to Person, Oriented to Place, Oriented to Time, Oriented to Situation Mental Status Prior to Admission: Unable to Assess Suicide Attempts: No Suicide History Comments: n/a Activities of Daily Living: Independent ADL Comments: n/a 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 Marital Status: Number of children and their names: Alma Nino Shawn Fajardo Angel Relative Search Completed: No Demographics Correct:: Yes Current Living Arrangements Current Living Arrangements Current Living Arrangements: Home Type of Housing: Apartment Who do you live with?: Alone History of Falls?: Yes Frequency of Falls: infrequent Community Services Community Services Community Services at Home: [employer]piratory [employer] Company Name/Phone #: Unknown Oxygen Needs: Nebulizer Was any abuse reported by patient?: No [place] Status & Connection to [place] Services [place] Status & Connection to [place] Services Are you a ?: No Support Systems Emergency contact: Extended Emergency Contact Information Primary Emergency Contact: nicolasa cagle Mobile Relation: Daughter Support Systems Legal Status: N/A Name of Guardian/POA/ Payee and Phone Number: n/a Primary Caregiver: Self Caregiver name/phone number: n/a Times of available support: Limited 24/7 hands on (add comment) Marital Status: Number of children and their names: Alma Nino Shawn Fajardo Angel Relative Search Completed: No Demographics Correct:: Yes Expected Discharge Disposition: Home Next of Kin: Miguel A Nino Shawn Fajardo Angel ([phone]) Next of Kin Relationship: Daughter, Son Next of Kin Phone Number: Miguel A Nino Shawn Fajardo Angel ([phone]) Assessment Information Obtained From:: Patient, Chart Review Other Pertinent Information Pts NOK are her three children Shawn Fajardo and Nicolasa. Advance Directives (For Healthcare) Advance Directive: Patient does not have advance directive Healthcare Agent Appointed: No Pre-existing DNR/DNI Order: No Patient Requests Assistance: No Discharge Plan Met with patient to initiate discussion regarding discharge planning. Introduced self and role of case management/social work. Barriers to Discharge Barriers to Discharge: Transportation Anticipated Discharge Plan: Home, pending clinical course Anticipated Discharge Date: Pending clinical course Anticipated Transportation: Taxi vs Family Patient/Family aware and taking part in the discharge plan. Patient/family educated that once post-acute care needs have been identified, a provider list applicable to the identified post-acute care needs as well as the insurance provider will be provided, and patient/family have the freedom to choose their provider(s); financial interest(s) are disclosed as appropriate. Danay RO, RN Inpatient Automatic T[employer] Tester [phone] * Amna Suarez MD - 08/15/2025 5:27 PM EST Cardiac Surgery Consult Note: Name: Nellie Alves Date of Consult: 08/15/2025 Attending: Dr. Jolly Reason for Consult: Concern for aortic dissection HPI: Nellie Alves is a 59 y.o. female with a PMH significant for COPD, hypertension, coronary artery diseases/p cardiac stents x4 (2022), and aortic stenosis s/p TAVR in (2022) who presented to an outside hospital for evaluation of lightheadedness. The patient was undergoing elective pulmonary function testing for her COPD this morning when she strained herself, causing her to become lightheaded and short of breath. She was noted to be tachycardic to the 120's during this episode and hypoxic, so she was started on 3L NC. She was taken to [facility] where CT-PA was obtained. The local radiologist read it as having the beginning of a new intimal flap in the ascending aorta, so she wastransferred here for further evaluation and management. On arrival, the patient is on an Esmolol drip at 200 with a Diltiazem drip. Vitals are stable. Repeat gated CTA-Chest was obtained on arrival. PMH: - Hypertension - Chronic obstructive pulmonary disease - Coronary artery disease PSH: - Cardiac stents x4 ([facility], ~2022) - Transcatheter aortic valve replacement ([facility], ~2022) - Multiple right foot/ankle surgeries Medications: Home Medications Not on File Review of Systems: Pertinent positives as above in HPI. Remainder of systems negative. Physical Exam: Vitals: 08/15/25 1605 08/15/25 1611 08/15/25 1616 08/15/25 1630 BP: 104/68 104/68 105/69 BP Location: Patient Position: BP Cuff Size: Pulse: 79 79 82 Resp: 21 21 Temp: 98.4 ??F (36.9 ??C) TempSrc: Oral SpO2: 95% 96% Weight: 160 lb 15 oz (73 kg) Physical Exam General: Well-appearing, resting comfortably. Not in acute distress Skin: Warm and dry CV: No peripheral edema. Regular rate and rhythm. Respiratory: Nonlabored respirations at rest. Satting well on room air Abdomen: Soft, nondistended Musculoskeletal: No gross deformities Neurologic: No focal neurologic deficits Psych: Appropriate mood and affect Lab Results Component Value Date WBC 6.3 08/15/2025 HGB 17.1 (H) 08/15/2025 HCT 49.1 (H) 08/15/2025 MCV 92.2 08/15/2025 PLT 156 08/15/2025 Lab Results Component Value Date CREATININE 0.45 (L) 08/15/2025 BUN 6 (L) 08/15/2025 NA 132 (L) 08/15/2025 K 4.6 08/15/2025 CL 98 08/15/2025 CO2 20 (L) 08/15/2025 Lab Results Component Value Date ALT 74 (H) 08/15/2025 AST 77 (H) 08/15/2025 ALKPHOS 127 (H) 08/15/2025 BILITOT 0.6 08/15/2025 Lab Results Component Value Date ALBUMIN 3.6 08/15/2025 No results found for: PREALBUMIN Lab Results Component Value Date INR 1.0 08/15/2025 PROTIME 13.2 08/15/2025 CT: Results for orders placed during the hospital encounter of 08/15/25 CT ANGIO CHEST W AND OR WO CONTRAST Impression 1. Status post TAVR with a small intrastent filling defect along the valve leaflet, favored represent a small thrombus. 2. No evidence of aortic dissection. 3. Additional ancillary findings as above. CRITICAL RESULT: These findings were discussed with Dr. Sergio Infante on 08/15/2025 5:10 PM EST by telephone. They confirmed that they understood the findings communicated to them. #[id number]# Report Verified by: Alberto Hathaway MD at 08/15/2025 5:16 PM EST Signed by: Alberto Hathaway MD on 08/15/2025 5:16 PM Assessment and Plan Nellie Alves is a 59 year old female with a PMH of HTN, COPD, CAD s/p cardiac stenting x4, and aortic stenosis s/p TAVR at the [facility] ~2022 who presented to [facility] with lightheadedness, dyspnea, and hypoxia after undergoing elective PFT's. CT-PA at [facility] was read as concerning for new intimal flap tear in the ascending aorta, so she was transferred to for further evaluation. On arrival she is on 200 of Esmolol and a Diltiazem drip with stable vital signs. She is relatively asymptomatic on arrival and notes resolution of most of her symptoms, including breathing well on room air. Gated CTA-Chest was obtained on arrival that did not show evidence of an intimal tear or acute aortic dissection, but it did show a filling defect by the noncoronary cusp of the aortic valve. Cardiac Surgery was consulted for further evaluation. - No acute surgical intervention from Cardiac Surgery at this time - No evidence of an acute aortic dissection; OSH imaging likely motion artifact - Recommend cardiology consultation for the filling defect by the noncoronary cusp for work-up of possible valvular dysfunction - Please follow-up with Dr. Rik granados or with her local maintenance manager/cardiac surgeon - Remainder of care per Emergency Department Amna Suarez MD Cardiothoracic Surgery Resident 08/15/2025 5:46 PM Cosigned by Rik Jolly IV, MD at 08/16/2025 9:24 AM EST Associated attestation - Rik Jolly IV, MD - 08/16/2025 9:24 AM EST I did not see or examine the patient. I discussed with the resident and agree with Dr. Suarez's findings and plan as documented in the resident's note, on 08/15/2025. Please see my separate note. Ms. Alves should be followed for her ascending aortic ectasia. Rik Jolly IV, MD, FACS Cardiac Surgeon [phone] documented in this encounter Nursing Notes * Mikayla Jean-Baptiste RN - 08/21/2025 11:25 AM EST Patient discharged home with medications from the discharge pharmacy. Discharge instructions given along with her AVS, and patient verbalize understanding. Transported home via lyft. * Xuan Gavin RN - 08/20/2025 8:52 PM EST Patient chart accessed for PIV audit. * Ian Varghese RN - 08/20/2025 3:29 PM EST Performed room air oxygen test. Patient tolerated ambulation well and denied dyspnea on exertion. Results as follows: On room air at rest: 95 % On room air with exertion: 89 - 97 % On 0 liters of oxygen during exertion. * Katherine Caruso RN - 08/19/2025 8:00 PM EST Informed patient that they were identified as a high fall risk patient and educated on the importance of a bed/chair alarm. Having an alarm placed helps to notify staff to come to room to check on patient when alerting. Patient was educated on risk for fall with possible injury and verbalize understanding but continues to refuse alarm. * Shandra Brush RN - 08/15/2025 3:58 PM EST Pt comes to the ED as a transfer for AAA. Pt was on esmolol at 200 at OSH but EMS ran out of the medication at 1525. HR 86 for EMS. Pt still on diltiazem drip for EMS. GCS 15 at box documented in this encounter ED Notes * Jl Cedeño RN, RN - 08/16/2025 1:21 AM EST Pts hptt came back within goal range. No change made to gtt. Hptt lab placed for 6 hrs from time oflast draw. * Jl Cedeño RN, RN - 08/16/2025 1:20 AM EST Ready and clean bed assigned to [id number]. Pt updated on plan of care including transfer and is agreeable. Receiving RN may call [phone] to consult ED RN with questions regarding patients care. Pt is leaving the department in stable condition with all personal items in possession. Ordered medications that have been received from Pharmacy will be tubed to receiving unit. The patient does not have a patient monitor at bedside in the ED. Most recent vitals: BP 130/60 (BP Location: Right upper arm, Patient Position: Lying, BP Cuff Size:Regular) Pulse 81 Temp 98.4 ??F (36.9 ??C) (Oral) Resp 18 Wt 160 lb 15 oz (73 kg) SpO2 93% JL CEDEÑO RN ,RN * Latosha Schultz RN - 08/15/2025 7:15 PM EST Report given to SIRENA Parikh RN for continuity of patient care. * Shandra Brush RN - 08/15/2025 7:05 PM EST Bed: [id number] Expected date: 08/15/25 Expected time: Means of arrival: Comments: SRU1 * JEANNETTE Rodriguez - 08/15/2025 4:26 PM EST [facility] Social Work Trauma / Critically Ill Assessment Nellie Alves [id number] Patient Registered as ZZZ: No Reason for Referral / Presenting Problem: Medical problem Means of Arrival: EMS: [facility] Patient Arrived from: Outside Hospital: [facility] Legal Next of Kin: Adult Children: Yes Name: Nicolasa Cagle ( daughter) [phone] Contact Information: Above Family Contact and Involvement: Patient stated that her family is aware that she was transferred to [facility] but was not expecting anyone to come to the hospital. Assessment and Social Work Interventions: 59 year old female was transferred to [facility] via ambulance from an outside hospital. Upon arrival, patient was noted to have a GCS, dockworker met with patient who was alert and stated that she was not expecting any family and gave the social contact worker the phone number of her daughter. dockworker contacted the patient's daughter and confirmed that the patient's daughter is at [facility]. Safety Concerns: None known Referral / Disposition Plan: PT admitted to JEANNETTE Cook * Cailin Serrano RN - 08/15/2025 3:57 PM EST Bed: [id number] Expected date: 08/15/25 Expected time: Means of arrival: Comments: [facility] Transfer/Ascending aortic dissection/Esmolol and Nicardipine drips documented in this encounter Miscellaneous Notes * Care Coordination - Ingrid Banks RN - 08/21/2025 10:39 AM EST Health Case Management/Social Work Department Progress Note Patient Information Patient Name: Nellie Alves Hospital day: 6 Inpatient/Observation: Inpatient Level of Care: Floor Admit date: 08/15/2025 Admission diagnosis: Thrombus [I82.90] PMH: has a past medical history of Aortic stenosis, CAD (coronary artery disease), and GERD (gastroesophageal reflux disease). PCP: No Pcp Home Pharmacy: [facility] [address] [facility] [address] [facility] [place], [place] - [address] [facility] [address] Medical Insurance Coverage: Payor: GENERIC MANAGED MEDICAID / Plan: [employer] [place] MANAGED MEDICAID / Product Type: Medicaid Mngd care / Other Pertinent Information Per team, pt to d/c today. Pt to d/c home with no CM needs. Walktest completed and pt does not qualify for home oxygen. Pt stated that she needs a ride home and does not have anyone to take her nor [place]ajo to get a ride share. RN/CM received permission from CM Mgr. Aaron Gunn to send pt to [facility] for a Lyft. Discharge Plan Anticipated discharge plan: Home Anticipated discharge date: 08/21 CM/SW will continue to follow and remain available for discharge planning needs. Danay RO, RN Inpatient Automatic T[employer] Tester [phone] * Plan of Care - Evie Brown RN - 08/21/2025 9:34 AM EST Problem: High Fall Risk Precautions Goal: High Fall Risk Precautions Outcome: Progressing Problem: Safety Goal: Patient will be injury free during hospitalization Description: Assess and monitor vitals signs, neurological status including level of consciousness and orientation. Assess patient's risk for falls and implement fall prevention plan of care and interventions per hospital policy. Ensure arm band on, uncluttered walking paths in room, adequate room lighting, call light and overbed table within reach, bed in low position, wheels locked, side rails up per policy, and non-skid footwear provided. Outcome: Progressing Problem: Patient will remain free of falls Goal: [place] Fall Precautions Outcome: Progressing Problem: Daily Care Goal: Daily care needs are met Description: Assess and monitor ability to perform self care and identify potential discharge needs. Outcome: Progressing Problem: Psychosocial Needs Goal: Demonstrates ability to cope with hospitalization/illness Description: Assess and monitor patients ability to cope with his/her illness. Outcome: Progressing Problem: Discharge Barriers Goal: Patient's discharge needs are met Description: Collaborate with interdisciplinary team and initiate plans and interventions as needed. Outcome: Progressing Problem: Discharge Planning Goal: Patient's discharge needs are met Description: Collaborate with interdisciplinary team and initiate plans and interventions as needed. Outcome: Progressing * Plan of Care - Katherine Caruso RN - 08/20/2025 10:53 PM EST Problem: High Fall Risk Precautions Goal: High Fall Risk Precautions Outcome: Progressing Problem: Safety Goal: Patient will be injury free during hospitalization Description: Assess and monitor vitals signs, neurological status including level of consciousness and orientation. Assess patient's risk for falls and implement fall prevention plan of care and interventions per hospital policy. Ensure arm band on, uncluttered walking paths in room, adequate room lighting, call light and overbed table within reach, bed in low position, wheels locked, side rails up per policy, and non-skid footwear provided. Outcome: Progressing Goal: Patient with weight > 350lbs will have appropriate equipment Description: Consider ordering Bariatric Bed, Chair and Bedside Commode for patient weight > 350lbs. Outcome: Completed Problem: Patient will remain free of falls Goal: [place] Fall Precautions Outcome: Progressing Problem: Daily Care Goal: Daily care needs are met Description: Assess and monitor ability to perform self care and identify potential discharge needs. Outcome: Progressing Problem: Psychosocial Needs Goal: Demonstrates ability to cope with hospitalization/illness Description: Assess and monitor patients ability to cope with his/her illness. Outcome: Progressing Goal: Collaborate with patient/family to identify patient's goals Outcome: Progressing Problem: Safety Goal: Patient will be injury free during hospitalization Description: Assess and monitor vitals signs, neurological status including level of consciousness and orientation. Assess patient's risk for falls and implement fall prevention plan of care and interventions per hospital policy. Ensure arm band on, uncluttered walking paths in room, adequate room lighting, call light and overbed table within reach, bed in low position, wheels locked, side rails up per policy, and non-skid footwear provided. Outcome: Progressing Goal: Patient with weight > 350lbs will have appropriate equipment Description: Consider ordering Bariatric Bed, Chair and Bedside Commode for patient weight > 350lbs. Outcome: Completed Problem: Patient will remain free of falls Goal: Hills Fall Precautions Outcome: Progressing Problem: Daily Care Goal: Daily care needs are met Description: Assess and monitor ability to perform self care and identify potential discharge needs. Outcome: Progressing Problem: Psychosocial Needs Goal: Demonstrates ability to cope with hospitalization/illness Description: Assess and monitor patients ability to cope with his/her illness. Outcome: Progressing Goal: Collaborate with patient/family to identify patient's goals Outcome: Progressing Problem: Discharge Barriers Goal: Patient's discharge needs are met Description: Collaborate with interdisciplinary team and initiate plans and interventions as needed. Outcome: Progressing Problem: Safety Goal: Patient will be injury free during hospitalization Description: Assess and monitor vitals signs, neurological status including level of consciousness and orientation. Assess patient's risk for falls and implement fall prevention plan of care and interventions per hospital policy. Ensure arm band on, uncluttered walking paths in room, adequate room lighting, call light and overbed table within reach, bed in low position, wheels locked, side rails up per policy, and non-skid footwear provided. Outcome: Progressing Problem: Patient will remain free of falls Goal: Hills Fall Precautions Outcome: Progressing Problem: Daily Care Goal: Daily care needs are met Description: Assess and monitor ability to perform self care and identify potential discharge needs. Outcome: Progressing Problem: Psychosocial Needs Goal: Demonstrates ability to cope with hospitalization/illness Description: Assess and monitor patients ability to cope with his/her illness. Outcome: Progressing Goal: Collaborate with patient/family to identify patient's goals Outcome: Progressing Problem: Discharge Barriers Goal: Patient's discharge needs are met Description: Collaborate with interdisciplinary team and initiate plans and interventions as needed. Outcome: Progressing * Care Coordination - Ingrid Banks RN - 08/20/2025 1:57 PM EST Health Case Management/Social Work Department Progress Note Patient Information Patient Name: Nellie Alves Hospital day: 5 Inpatient/Observation: Inpatient Level of Care: Floor Admit date: 08/15/2025 Admission diagnosis: Thrombus [I82.90] PMH: has a past medical history of Aortic stenosis, CAD (coronary artery disease), and GERD (gastroesophageal reflux disease). PCP: No Pcp Home Pharmacy: [facility] [id number] [facility] [id number] [facility] [place], [place] - [address] [facility] [id number] Medical Insurance Coverage: Payor: GENERIC MANAGED MEDICAID / Plan: [employer] MANAGED MEDICAID / Product Type: Medicaid [facility] care / Other Pertinent Information Rounded with team. Per team, pt is not medically ready for discharge at this time. Pt to d/c on warfarin; team coordinating INR monitoring and PCP follow-up with [facility]. Pt needs a walk test due to oxygen use; FELIPE Dexter coordinating. Primary RN made aware. Discharge Plan Anticipated discharge plan: Home Anticipated discharge date: 08/21 CM/SW will continue to follow and remain available for discharge planning needs. Danay RO, RN Inpatient [employer] [phone] * Plan of Care - Ian Varghese RN - 08/20/2025 12:56 PM EST Problem: Safety Goal: Patient will be injury free during hospitalization Description: Assess and monitor vitals signs, neurological status including level of consciousness and orientation. Assess patient's risk for falls and implement fall prevention plan of care and interventions per hospital policy. Ensure arm band on, uncluttered walking paths in room, adequate room lighting, call light and overbed table within reach, bed in low position, wheels locked, side rails up per policy, and non-skid footwear provided. Outcome: Progressing Problem: Patient will remain free of falls Goal: Hills Fall Precautions Outcome: Progressing Problem: Daily Care Goal: Daily care needs are met Description: Assess and monitor ability to perform self care and identify potential discharge needs. Outcome: Progressing Problem: Psychosocial Needs Goal: Demonstrates ability to cope with hospitalization/illness Description: Assess and monitor patients ability to cope with his/her illness. Outcome: Progressing Goal: Collaborate with patient/family to identify patient's goals Outcome: Progressing Problem: Discharge Barriers Goal: Patient's discharge needs are met Description: Collaborate with interdisciplinary team and initiate plans and interventions as needed. Outcome: Progressing Problem: Safety Goal: Patient with weight > 350lbs will have appropriate equipment Description: Consider ordering Bariatric Bed, Chair and Bedside Commode for patient weight > 350lbs. Outcome: Completed * Care Coordination - Jacquelin Dexter - 08/20/2025 12:15 PM EST [facility] was notified that patient would need home oxygen services upon discharge. In order to obtain home oxygen prior to discharge, patient will need documentation of room air oxygen testing from a physician, physician assistant women's rowing coach, nurse or respiratory therapist within 48 hours of discharge. In order toqualify, there will need to be documentation of a desaturation of 88% or below at rest on room air.Should room air saturation exceeds 88%, the three step test would need to apply as follows: On room air at rest: ____ % On room air with exertion: ____ % On __ liters of oxygen during exertion: ____% [facility] will continue to follow. Jacquelin Dexter [employer] Ent Surgeon Care Management Services [phone] * Plan of Care - Katherine Caruso RN - 08/19/2025 10:53 PM EST Problem: High Fall Risk Precautions Goal: High Fall Risk Precautions Outcome: Progressing Problem: Safety Goal: Patient will be injury free during hospitalization Description: Assess and monitor vitals signs, neurological status including level of consciousness and orientation. Assess patient's risk for falls and implement fall prevention plan of care and interventions per hospital policy. Ensure arm band on, uncluttered walking paths in room, adequate room lighting, call light and overbed table within reach, bed in low position, wheels locked, side rails up per policy, and non-skid footwear provided. Outcome: Progressing Problem: Patient will remain free of falls Goal: [place] Fall Precautions Outcome: Progressing Problem: Daily Care Goal: Daily care needs are met Description: Assess and monitor ability to perform self care and identify potential discharge needs. Outcome: Progressing Problem: Patient will remain free of falls Goal: [place] Fall Precautions Outcome: Progressing Problem: Daily Care Goal: Daily care needs are met Description: Assess and monitor ability to perform self care and identify potential discharge needs. Outcome: Progressing Problem: Psychosocial Needs Goal: Demonstrates ability to cope with hospitalization/illness Description: Assess and monitor patients ability to cope with his/her illness. Outcome: Progressing * Care Coordination - Ingrid Banks RN - 08/19/2025 1:51 PM EST [facility] Case Management/Social Work Department Progress Note Patient Information Patient Name: Nellie Alves Hospital day: 4 Inpatient/Observation: Inpatient Level of Care: Floor Admit date: 08/15/2025 Admission diagnosis: Thrombus [I82.90] PMH: has a past medical history of Aortic stenosis, CAD (coronary artery disease), and GERD (gastroesophageal reflux disease). PCP: No Pcp Home Pharmacy: [facility] [id number] [facility] [id number] [facility] - [place], [place] - [address] [facility] [id number] Medical Insurance Coverage: Payor: GENERIC MANAGED MEDICAID / Plan: [employer] [place] MANAGED MEDICAID / Product Type: Medicaid [facility] care / Other Pertinent Information Rounded with team. Per team, pt is not medically ready for discharge at this time. Pts cardiac CT needs to be read and then pending results, pt may be medically ready to d/c tomorrow. Discharge Plan Anticipated discharge plan: Home Anticipated discharge date: 08/20 CM/SW will continue to follow and remain available for discharge planning needs. Danay Banks MSN, RN Inpatient [employer] [phone] * Plan of Care - Belinda Roman RN - 08/19/2025 10:29 AM EST Problem: High Fall Risk Precautions Goal: High Fall Risk Precautions Outcome: Progressing Problem: Safety Goal: Patient will be injury free during hospitalization Description: Assess and monitor vitals signs, neurological status including level of consciousness and orientation. Assess patient's risk for falls and implement fall prevention plan of care and interventions per hospital policy. Ensure arm band on, uncluttered walking paths in room, adequate room lighting, call light and overbed table within reach, bed in low position, wheels locked, side rails up per policy, and non-skid footwear provided. Outcome: Progressing Problem: Patient will remain free of falls Goal: [place] Fall Precautions Outcome: Progressing Problem: Daily Care Goal: Daily care needs are met Description: Assess and monitor ability to perform self care and identify potential discharge needs. Outcome: Progressing Problem: Psychosocial Needs Goal: Demonstrates ability to cope with hospitalization/illness Description: Assess and monitor patients ability to cope with his/her illness. Outcome: Progressing * Plan of Care - Judi Reeves RN - 08/18/2025 9:20 PM EST Problem: High Fall Risk Precautions Goal: High Fall Risk Precautions Outcome: Progressing Problem: Safety Goal: Patient will be injury free during hospitalization Description: Assess and monitor vitals signs, neurological status including level of consciousness and orientation. Assess patient's risk for falls and implement fall prevention plan of care and interventions per hospital policy. Ensure arm band on, uncluttered walking paths in room, adequate room lighting, call light and overbed table within reach, bed in low position, wheels locked, side rails up per policy, and non-skid footwear provided. Outcome: Progressing Problem: Safety Goal: Patient with weight > 350lbs will have appropriate equipment Description: Consider ordering Bariatric Bed, Chair and Bedside Commode for patient weight > 350lbs. Outcome: Progressing Problem: Patient will remain free of falls Goal: [place] Fall Precautions Outcome: Progressing Problem: Daily Care Goal: Daily care needs are met Description: Assess and monitor ability to perform self care and identify potential discharge needs. Outcome: Progressing Problem: Daily Care Goal: Daily care needs are met Description: Assess and monitor ability to perform self care and identify potential discharge needs. Outcome: Progressing Problem: Psychosocial Needs Goal: Demonstrates ability to cope with hospitalization/illness Description: Assess and monitor patients ability to cope with his/her illness. Outcome: Progressing * Plan of Care - Katherine Mackenzie RN - 08/18/2025 1:14 PM EST Problem: High Fall Risk Precautions Goal: High Fall Risk Precautions Outcome: Progressing Problem: Safety Goal: Patient will be injury free during hospitalization Description: Assess and monitor vitals signs, neurological status including level of consciousness and orientation. Assess patient's risk for falls and implement fall prevention plan of care and interventions per hospital policy. Ensure arm band on, uncluttered walking paths in room, adequate room lighting, call light and overbed table within reach, bed in low position, wheels locked, side rails up per policy, and non-skid footwear provided. Outcome: Progressing Goal: Patient with weight > 350lbs will have appropriate equipment Description: Consider ordering Bariatric Bed, Chair and Bedside Commode for patient weight > 350lbs. Outcome: Progressing Problem: Patient will remain free of falls Goal: [place] Fall Precautions Outcome: Progressing Problem: Daily Care Goal: Daily care needs are met Description: Assess and monitor ability to perform self care and identify potential discharge needs. Outcome: Progressing * Plan of Care - Marie Crowley RN - 08/18/2025 12:27 AM EST Problem: High Fall Risk Precautions Goal: High Fall Risk Precautions Outcome: Progressing Problem: Safety Goal: Patient will be injury free during hospitalization Description: Assess and monitor vitals signs, neurological status including level of consciousness and orientation. Assess patient's risk for falls and implement fall prevention plan of care and interventions per hospital policy. Ensure arm band on, uncluttered walking paths in room, adequate room lighting, call light and overbed table within reach, bed in low position, wheels locked, side rails up per policy, and non-skid footwear provided. Outcome: Progressing Problem: Patient will remain free of falls Goal: [place] Fall Precautions Outcome: Progressing Problem: Daily Care Goal: Daily care needs are met Description: Assess and monitor ability to perform self care and identify potential discharge needs. Outcome: Progressing Problem: Psychosocial Needs Goal: Demonstrates ability to cope with hospitalization/illness Description: Assess and monitor patients ability to cope with his/her illness. Outcome: Progressing Goal: Collaborate with patient/family to identify patient's goals Outcome: Progressing Problem: Discharge Barriers Goal: Patient's discharge needs are met Description: Collaborate with interdisciplinary team and initiate plans and interventions as needed. Outcome: Progressing Problem: Safety Goal: Patient will be injury free during hospitalization Description: Assess and monitor vitals signs, neurological status including level of consciousness and orientation. Assess patient's risk for falls and implement fall prevention plan of care and interventions per hospital policy. Ensure arm band on, uncluttered walking paths in room, adequate room lighting, call light and overbed table within reach, bed in low position, wheels locked, side rails up per policy, and non-skid footwear provided. Outcome: Progressing Goal: Patient with weight > 350lbs will have appropriate equipment Description: Consider ordering Bariatric Bed, Chair and Bedside Commode for patient weight > 350lbs. Outcome: Progressing Problem: Patient will remain free of falls Goal: [place] Fall Precautions Outcome: Progressing Problem: Daily Care Goal: Daily care needs are met Description: Assess and monitor ability to perform self care and identify potential discharge needs. Outcome: Progressing Problem: Psychosocial Needs Goal: Demonstrates ability to cope with hospitalization/illness Description: Assess and monitor patients ability to cope with his/her illness. Outcome: Progressing Goal: Collaborate with patient/family to identify patient's goals Outcome: Progressing Problem: Discharge Barriers Goal: Patient's discharge needs are met Description: Collaborate with interdisciplinary team and initiate plans and interventions as needed. Outcome: Progressing Problem: Safety Goal: Patient will be injury free during hospitalization Description: Assess and monitor vitals signs, neurological status including level of consciousness and orientation. Assess patient's risk for falls and implement fall prevention plan of care and interventions per hospital policy. Ensure arm band on, uncluttered walking paths in room, adequate room lighting, call light and overbed table within reach, bed in low position, wheels locked, side rails up per policy, and non-skid footwear provided. Outcome: Progressing Problem: Patient will remain free of falls Goal: Hills Fall Precautions Outcome: Progressing Problem: Daily Care Goal: Daily care needs are met Description: Assess and monitor ability to perform self care and identify potential discharge needs. Outcome: Progressing Problem: Psychosocial Needs Goal: Demonstrates ability to cope with hospitalization/illness Description: Assess and monitor patients ability to cope with his/her illness. Outcome: Progressing Goal: Collaborate with patient/family to identify patient's goals Outcome: Progressing Problem: Discharge Barriers Goal: Patient's discharge needs are met Description: Collaborate with interdisciplinary team and initiate plans and interventions as needed. Outcome: Progressing Problem: Discharge Planning Goal: Patient's discharge needs are met Description: Collaborate with interdisciplinary team and initiate plans and interventions as needed. Outcome: Progressing Goal: Identify discharge needs Outcome: Progressing * Plan of Care - Linda Spears RN - 08/17/2025 9:44 AM EST Problem: High Fall Risk Precautions Goal: High Fall Risk Precautions Outcome: Progressing Problem: Safety Goal: Patient will be injury free during hospitalization Description: Assess and monitor vitals signs, neurological status including level of consciousness and orientation. Assess patient's risk for falls and implement fall prevention plan of care and interventions per hospital policy. Ensure arm band on, uncluttered walking paths in room, adequate room lighting, call light and overbed table within reach, bed in low position, wheels locked, side rails up per policy, and non-skid footwear provided. Outcome: Progressing Goal: Patient with weight > 350lbs will have appropriate equipment Description: Consider ordering Bariatric Bed, Chair and Bedside Commode for patient weight > 350lbs. Outcome: Progressing Problem: Patient will remain free of falls Goal: [place] Fall Precautions Outcome: Progressing Problem: Daily Care Goal: Daily care needs are met Description: Assess and monitor ability to perform self care and identify potential discharge needs. Outcome: Progressing Problem: Psychosocial Needs Goal: Demonstrates ability to cope with hospitalization/illness Description: Assess and monitor patients ability to cope with his/her illness. Outcome: Progressing Goal: Collaborate with patient/family to identify patient's goals Outcome: Progressing Problem: Discharge Barriers Goal: Patient's discharge needs are met Description: Collaborate with interdisciplinary team and initiate plans and interventions as needed. Outcome: Progressing Problem: Safety Goal: Patient will be injury free during hospitalization Description: Assess and monitor vitals signs, neurological status including level of consciousness and orientation. Assess patient's risk for falls and implement fall prevention plan of care and interventions per hospital policy. Ensure arm band on, uncluttered walking paths in room, adequate room lighting, call light and overbed table within reach, bed in low position, wheels locked, side rails up per policy, and non-skid footwear provided. Outcome: Progressing Goal: Patient with weight > 350lbs will have appropriate equipment Description: Consider ordering Bariatric Bed, Chair and Bedside Commode for patient weight > 350lbs. Outcome: Progressing Problem: Patient will remain free of falls Goal: [place] Fall Precautions Outcome: Progressing Problem: Daily Care Goal: Daily care needs are met Description: Assess and monitor ability to perform self care and identify potential discharge needs. Outcome: Progressing Problem: Psychosocial Needs Goal: Demonstrates ability to cope with hospitalization/illness Description: Assess and monitor patients ability to cope with his/her illness. Outcome: Progressing Goal: Collaborate with patient/family to identify patient's goals Outcome: Progressing Problem: Discharge Barriers Goal: Patient's discharge needs are met Description: Collaborate with interdisciplinary team and initiate plans and interventions as needed. Outcome: Progressing Problem: Safety Goal: Patient will be injury free during hospitalization Description: Assess and monitor vitals signs, neurological status including level of consciousness and orientation. Assess patient's risk for falls and implement fall prevention plan of care and interventions per hospital policy. Ensure arm band on, uncluttered walking paths in room, adequate room lighting, call light and overbed table within reach, bed in low position, wheels locked, side rails up per policy, and non-skid footwear provided. Outcome: Progressing Goal: Patient with weight > 350lbs will have appropriate equipment Description: Consider ordering Bariatric Bed, Chair and Bedside Commode for patient weight > 350lbs. Outcome: Progressing Problem: Patient will remain free of falls Goal: Hills Fall Precautions Outcome: Progressing Problem: Daily Care Goal: Daily care needs are met Description: Assess and monitor ability to perform self care and identify potential discharge needs. Outcome: Progressing Problem: Psychosocial Needs Goal: Demonstrates ability to cope with hospitalization/illness Description: Assess and monitor patients ability to cope with his/her illness. Outcome: Progressing Goal: Collaborate with patient/family to identify patient's goals Outcome: Progressing Problem: Discharge Barriers Goal: Patient's discharge needs are met Description: Collaborate with interdisciplinary team and initiate plans and interventions as needed. Outcome: Progressing Problem: Discharge Planning Goal: Patient's discharge needs are met Description: Collaborate with interdisciplinary team and initiate plans and interventions as needed. Outcome: Progressing Goal: Identify discharge needs Outcome: Progressing * Plan of Care - Ritu Li RN - 08/17/2025 6:22 AM EST Problem: Safety Goal: Patient will be injury free during hospitalization Description: Assess and monitor vitals signs, neurological status including level of consciousness and orientation. Assess patient's risk for falls and implement fall prevention plan of care and interventions per hospital policy. Ensure arm band on, uncluttered walking paths in room, adequate room lighting, call light and overbed table within reach, bed in low position, wheels locked, side rails up per policy, and non-skid footwear provided. Outcome: Progressing Problem: Patient will remain free of falls Goal: Hills Fall Precautions Outcome: Progressing Problem: Daily Care Goal: Daily care needs are met Description: Assess and monitor ability to perform self care and identify potential discharge needs. Outcome: Progressing Problem: Psychosocial Needs Goal: Demonstrates ability to cope with hospitalization/illness Description: Assess and monitor patients ability to cope with his/her illness. Outcome: Progressing Problem: Patient will remain free of falls Goal: Hills Fall Precautions Outcome: Progressing Problem: Daily Care Goal: Daily care needs are met Description: Assess and monitor ability to perform self care and identify potential discharge needs. Outcome: Progressing * Care Coordination - Ingrid Banks RN - 08/16/2025 12:40 PM EST Per Cards request, RN/CM called [facility] ([phone]) and [facility] ([phone]) requesting medical records. Records to be faxed to / fax. Danay Banks MSN, RN Inpatient [employer] [phone] * Plan of Care - Beata Baker RN - 08/16/2025 10:24 AM EST Problem: High Fall Risk Precautions Goal: High Fall Risk Precautions Outcome: Progressing Problem: Safety Goal: Patient will be injury free during hospitalization Description: Assess and monitor vitals signs, neurological status including level of consciousness and orientation. Assess patient's risk for falls and implement fall prevention plan of care and interventions per hospital policy. Ensure arm band on, uncluttered walking paths in room, adequate room lighting, call light and overbed table within reach, bed in low position, wheels locked, side rails up per policy, and non-skid footwear provided. Outcome: Progressing Problem: Daily Care Goal: Daily care needs are met Description: Assess and monitor ability to perform self care and identify potential discharge needs. Outcome: Progressing * Plan of Care - Luis Salazar RN - 08/16/2025 2:58 AM EST Problem: High Fall Risk Precautions Goal: High Fall Risk Precautions Outcome: Progressing * ACP (Advance Care Planning) - Chato Boone MD - 08/15/2025 7:44 PM EST Medical Orders for Life-Sustaining Treatment Discussion In the event of a medical emergency, the patient has voiced these wishes: Cardiopulmonary Resuscitation (CPR) If there is no pulse and no breathing: Attempt resuscitation/CPR with full treatment and intervention. Medical Interventions If there is a pulse and/or breathing: Full intervention including intubation, mechanical ventilation, cardioversion, and transfer to intensive care as indicated. Antibiotics/Hydration Antibiotics: Use antibiotics if clinically indicated. Food and liquids by mouth is always offered if feasible. If not, Trial period of hydration/nutrition by tube. These wishes were discussed with Patient. Staff present for discussion included: residents Yung Boone MD, PGY-3 and Justin Puga MD, PGY-1 Time spent in conversation: 5 minutes documented in this encounter Plan of Treatment Scheduled Orders Name Type Priority Associated Diagnoses Orde r Schedule EP Study Electrophysiology Routine Once fo r 1 Occurrences starting 08/16/2025 until 08/16/2025 documented as of this encounter Procedures Procedure Name Priority Date/Time Associated Diagnosis Comments EKG - SCAN 08/22/2025 2:44 PM EST FALGUNI RHYTHM STRIP - SCAN 08/21/2025 9:06 AM EST PROTIME-INR Routine 08/21/2025 8:42 AM EST Thrombus RENAL FUNCTION PANEL W/EGFR Routine 08/21/2025 5:23 AM EST PROTIME-INR Routine 08/21/2025 5:23 AM EST CBC Routine 08/21/2025 5:23 AM EST MAGNESIUM Routine 08/21/2025 5:23 AM EST FALGUNI RHYTHM STRIP - SCAN 08/20/2025 8:00 PM EST FALGUNI RHYTHM STRIP - SCAN 08/20/2025 7:53 AM EST APTT-HEPARIN Timed 08/20/2025 5:31 AM EST RENAL FUNCTION PANEL W/EGFR Routine 08/20/2025 5:31 AM EST SED RATE Routine 08/20/2025 5:31 AM EST PROTIME-INR Routine 08/20/2025 5:31 AM EST CBC Routine 08/20/2025 5:31 AM EST C-REACTIVE PROTEIN Routine 08/20/2025 5: 31 AM EST MAGNESIUM Routine 08/20/2025 5:31 AM EST FALGUNI RHYTHM STRIP - SCAN 08/19/2025 8:30 PM EST PROTIME-INR STAT 08/19/2025 2:[address] THORACIC STRUCTURES-RAD READ ONLY Routine 08/19/2025 10:[address] CARDIAC WITH CORONARY EVALUATION Routine 08/19/2025 10:59 AM EST FALGUNI RHYTHM STRIP - SCAN 08/19/2025 8:09 AM EST APTT-HEPARIN Timed 08/19/2025 5:52 AM EST RENAL FUNCTION PANEL W/EGFR Routine 08/19/2025 5:52 AM EST CBC Routine 08/19/2025 5:52 AM EST MAGNESIUM Routine 08/19/2025 5:52 AM EST POC GLU MONITORING DEVICE Routine 08/18/2025 11:44 PM EST FALGUNI RHYTHM STRIP - SCAN 08/18/2025 7:23 PM EST APTT-HEPARIN Timed 08/18/2025 5:50 PM EST RENAL FUNCTION PANEL W/EGFR Routine 08/18/2025 5:50 PM EST B NATRIURETIC PEPTIDE Add-On 08/18/2025 5:50 PM EST MAGNESIUM Routine 08/18/2025 5:50 PM EST APTT-HEPARIN Timed 08/18/2025 10:26 AM EST DAVIAN MPN JAK2 [id number] W/REFLEX (EXON 12-13, CALR, MPL) Routine 08/18/2025 9:17 AM EST RENAL FUNCTION PANEL W/EGFR STAT 08/18/2025 9:17 AM EST FALGUNI RHYTHM STRIP - SCAN 08/18/2025 8:19 AM EST RENAL FUNCTION PANEL W/EGFR Routine 08/18/2025 7:39 AM EST CBC Routine 08/18/2025 7:39 AM EST MAGNESIUM Routine 08/18/2025 7:39 AM EST APTT-HEPARIN Timed 08/17/2025 7:42 PM EST ECG 12-LEAD (MUSE) Routine 08/17/2025 1: 04 PM EST APTT-HEPARIN Timed 08/17/2025 12:34 PM EST EKG - SCAN 08/17/2025 11:02 AM EST RENAL FUNCTION PANEL W/EGFR STAT 08/17/2025 7:59 AM EST MAGNESIUM STAT 08/17/2025 7:59 AM EST FALGUNI RHYTHM STRIP - SCAN 08/17/2025 7:44 AM EST APTT-HEPARIN Timed 08/17/2025 5:43 AM EST RENAL FUNCTION PANEL W/EGFR Routine 08/17/2025 5:43 AM EST CBC Routine 08/17/2025 5:43 AM EST MAGNESIUM Routine 08/17/2025 5:43 AM EST LIPID PANEL Routine 08/17/2025 5:43 AM EST FALGUNI RHYTHM STRIP - SCAN 08/16/2025 8:54 PM EST ECHO COMPLETE Routine 08/16/2025 4:00 PM EST SED RATE Routine 08/16/2025 10:53 AM EST C-REACTIVE PROTEIN Routine 08/16/2025 10 :53 AM EST INFLUENZA A AND B, COVID, RSV COMBINATION ASSAY, MARIELENA STAT 08/16/2025 10:02 AM EST FALGUNI RHYTHM STRIP - SCAN 08/16/2025 9:40 AM EST APTT-HEPARIN Timed 08/16/2025 6:58 AM EST LACTIC ACID Routine 08/16/2025 6:58 AM EST RENAL FUNCTION PANEL W/EGFR Routine 08/16/2025 6:58 AM EST CBC Routine 08/16/2025 6:58 AM EST B NATRIURETIC PEPTIDE Routine 08/16/2025 6:58 AM EST MAGNESIUM Routine 08/16/2025 6:58 AM EST FALGUNI RHYTHM STRIP - SCAN 08/16/2025 3:17 AM EST APTT-HEPARIN Timed 08/16/2025 12:27 AM EST BLOOD CULTURE-PERIPHERAL Routine 08/15/2025 8:02 PM EST BLOOD CULTURE-PERIPHERAL Routine 08/15/2025 8:02 PM EST URINALYSIS-MACROSCOPI C W/REFLEX TO MICROSCOPIC STAT 08/15/2025 6:42 PM EST HIGH SENSITIVITY TROPONIN STAT 08/15/2025 6:28 PM EST LACTIC ACID, VENOUS BLOOD GAS STAT 08/15/2025 6:28 PM EST APTT STAT 08/15/2025 6:28 PM EST PROTIME-INR STAT 08/15/2025 6:28 PM EST CBC STAT 08/15/2025 6:[address] ANGIO ABDOMEN AND PELVIS W AND OR WO IV CONTRAST STAT 08/15/2025 4:[address] ANGIO CHEST W AND OR WO CONTRAST STAT 08/15/2025 4:30 PM EST HIGH SENSITIVITY TROPONIN STAT 08/15/2025 4:21 PM EST HEPATIC FUNCTION PANEL STAT 08/15/2025 4:21 PM EST ED HCV AB REFLEX TO HCV QUANT Routine 08/15/2025 4:21 PM EST LACTIC ACID, VENOUS BLOOD GAS STAT 08/15/2025 4:21 PM EST ABO/RH STAT 08/15/2025 4:21 PM EST DIFFERENTIAL STAT 08/15/2025 4:21 PM EST APTT STAT 08/15/2025 4:21 PM EST PROTIME-INR STAT 08/15/2025 4:21 PM EST CBC STAT 08/15/2025 4:21 PM EST ANTIBODY SCREEN STAT 08/15/2025 4:21 PM EST BASIC METABOLIC PANEL STAT 08/15/2025 4:21 PM EST ED ECG 12-LEAD (MUSE) STAT 08/15/2025 4:04 PM EST documented in this encounter Results * EKG - scan (08/22/2025 2:44 PM EST) us Scanning Uchhim SCAN DOCS - NO RESULTS Final Res ult * FALGUNI Rhythm Strip - Scan (08/21/2025 9:06 AM EST) Scanning Uchmem SCAN DOCS - NO RESULTS Final Res ult * Protime-INR (08/21/2025 8:42 AM EST) Protime 13.0 12.1 - 15.1 seconds 08/21/2025 9:30 AM EST [facility] INR 0.9 0.9 - 1.1 08/21/2025 9:30 AM EST [facility] LAB Comment: RECOMMENDED THERAPEUTIC RANGES USING INR : Stable oral anticoagulant therapy: 2.0 - 3.0 Mechanical prosthetic heart valve: 2.5 - 3.5 Recurrent acute myocardial infarction: 2.5 - 3.5 Plasma 08/21/2025 8:42 AM EST 08/21/2025 9:07 AM EST us Marie Davila MD LAB BLOOD ORDERABLES Final Re sult [facility] [address] [facility]. [address] * Protime-INR (08/21/2025 5:23 AM EST) Protime 13.1 12.1 - 15.1 seconds 08/21/2025 5:55 AM EST [facility]ALTH LAB INR 1.0 0.9 - 1.1 08/21/2025 5:55 AM EST [facility] LAB Comment: RECOMMENDED THERAPEUTIC RANGES USING INR : Stable oral anticoagulant therapy: 2.0 - 3.0 Mechanical prosthetic heart valve: 2.5 - 3.5 Recurrent acute myocardial infarction: 2.5 - 3.5 Plasma 08/21/2025 5:23 AM EST 08/21/2025 5:35 AM EST us Heather SheffieldD LAB BLOOD ORDERABLES Final Result [facility] [address] * Magnesium (08/21/2025 5:23 AM EST) Magnesium 2.1 1.5 - 2.5 mg/dL 08/21/2025 6:19 AM EST [facility] Plasma 08/21/2025 5:23 AM EST 08/21/2025 5:35 AM EST us Marie Davila MD LAB BLOOD ORDERABLES Final Re sult [facility] [address] [place] [address], [facility] * (ABNORMAL) Renal Function Panel w/EGFR (08/21/2025 5:23 AM EST) Sodium 133 133 - 146 mmol/L 08/21/2025 6:19 AM EST [facility] Potassium 3.8 3.5 - 5.3 mmol/L 08/21/2025 6:19 AM EST [facility] Chloride 97(L) 98 - 110 mmol/L 08/21/2025 6:19 AM EST [facility] CO2 27 21 - 33 mmol/L 08/21/2025 6:19 AM EST [facility] Comment:High lactate dehydro genase concentrations in patient samples may cause falsely increased bicarbonate results. If markedly elevated LDH is observed or suspected, please assess results in conjunction with patient`s clinical presentation. In cases of discrepant results, consider evaluating CO2 in with a blood gas order. Anion Gap 9 3 - 16 mmol/L 08/21/2025 6:19 AM EST [facility] BUN 12 7 - 25 mg/dL 08/21/2025 6:19 AM EST [facility] Creatinine 0.52(L) 0.60 - 1.30 mg/dL 08/21/2025 6:19 AM EST [facility] Glucose 230(H) 70 - 100 mg/dL 08/21/2025 6:19 AM EST [facility] Calcium 9.0 8.6 - 10.3 mg/dL 08/21/2025 6:19 AM EST [facility] Phosphorus 4.4 2.1 - 4.7 mg/dL 08/21/2025 6:19 AM [facility] Albumin 3.9 3.5 - 5.7 g/dL 08/21/2025 6:19 AM [facility] Osmolality, Calculated 283 278 - 305 mOsm/kg 08/21/2025 6:19 AM EST [facility] EGFR >90 08/21/2025 6:19 AM EST [facility] Comment: As of 2021, the estimated GFR is calculated using the 2020 Chronic Kidney Disease Epidemiology Collaboration (CKD-EPI) equation. In line with the NKF-ASN Task Force Recommendations, this equation does not include a coefficient for race. A single eGFR value is calculated for each patient. The reference interval is >60 mL/min/1.73m2. eGFR values greater than 90 will be reported as >90mL/min/1.73m2. Reference: Kahlil C, Niru M, Govind DC, Ector ND, Anyi CA, Jonah LA, et al. A Unifying Approach for GFR Estimation: Recommendations of the NKF-ASN Task Force on Reassessing the inclusion of Race in Diagnosing Kidney Disease. Am J Kidney Dis. 2020. GFR is estimated using creatinine, age, and sex. Patient's values should be interpreted as a trend. Below 90 mL/min/1.73m2, the patient may have renal disease. For additional information: www.kidney.org Plasma 08/21/2025 5:23 AM EST 08/21/2025 5:35 AM EST us Marie Davila MD LAB BLOOD ORDERABLES Final Re sult [facility] [address] [place] [address], [facility] * (ABNORMAL) CBC (08/21/2025 5:23 AM EST) WBC 8.5 3.8 - 10.8 10E3/uL 08/21/2025 5:50 AM EST [facility] RBC 5.07 3.80 - 5.10 10E6/uL 08/21/2025 5:50 AM EST [facility] Hemoglobin 16.2(H) 11.7 - 15.5 g/dL 08/21/2025 5:50 AM EST [facility] Hematocrit 47.0(H) 35.0 - 45.0 % 08/21/2025 5:50 AM EST [facility] MCV 92.6 80.0 - 100.0 fL 08/21/2025 5:50 AM EST [facility] MCH 32.0 27.0 - 33.0 pg 08/21/2025 5:50 AM EST [facility] MCHC 34.6 32.0 - 36.0 g/dL 08/21/2025 5:50 AM EST [facility] RDW 14.2 11.0 - 15.0 % 08/21/2025 5:50 AM EST [facility] Platelets 151 140 - 400 10E3/uL 08/21/2025 5:50 AM EST [facility] MPV 8.4 7.5 - 11.5 fL 08/21/2025 5:50 AM EST [facility] Whole Blood 08/21/2025 5:23 AM EST 08/21/2025 5:35 AM EST us Marie Davila MD LAB BLOOD ORDERABLES Final Re sult [facility] [address] * FALGUNI Rhythm Strip - Scan (08/20/2025 8:00 PM EST) us Scanning Uchhim SCAN DOCS - NO RESULTS Final Res ult * FALGUNI Rhythm Strip - Scan (08/20/2025 7:53 AM EST) us Scanning Uchhim SCAN DOCS - NO RESULTS Final Res ult * Protime-INR, AM (08/20/2025 5:31 AM EST) Protime 12.8 12.1 - 15.1 seconds 08/20/2025 6:05 AM EST [facility] INR 0.9 0.9 - 1.1 08/20/2025 6:05 AM EST [facility] Comment: RECOMMENDED THERAPEUTIC RANGES USING INR : Stable oral anticoagulant therapy: 2.0 - 3.0 Mechanical prosthetic heart valve: 2.5 - 3.5 Recurrent acute myocardial infarction: 2.5 - 3.5 Plasma 08/20/2025 5:31 AM EST 08/20/2025 5:38 AM EST us Marie Davila MD LAB BLOOD ORDERABLES Final Re sult Performing Organization Address City/[facility] Co de Phone Number [facility] [address] [place] [address]. [address] * (ABNORMAL) C-Reactive Protein (08/20/2025 5:31 AM EST) CRP 11.6(H) 1.0 - 10.0 mg/L 08/20/2025 6:04 AM EST [facility] Plasma 08/20/2025 5:31 AM EST 08/20/2025 5:38 AM EST us Marie Davila MD LAB BLOOD ORDERABLES Final Re sult Performing Organization Address [facility] Co de Phone Number [facility] [address] [place] [address]. [address] * Sed Rate (08/20/2025 5:31 AM EST) Sed Rate 29 0 - 30 mm/hr 08/20/2025 6:00 AM EST [facility] Whole Blood 08/20/2025 5:31 AM EST 08/20/2025 5:38 AM EST us Marie Davila MD LAB BLOOD ORDERABLES Final Re sult Performing Organization Address [facility] Co de Phone Number [facility] [address] [place] [address]. [address] * Magnesium (08/20/2025 5:31 AM EST) Magnesium 1.8 1.5 - 2.5 mg/dL 08/20/2025 6:04 AM EST [facility] Plasma 08/20/2025 5:31 AM EST 08/20/2025 5:38 AM EST us Marie Davila MD LAB BLOOD ORDERABLES Final Re sult [facility] [address] [place] [id number], [facility] * (ABNORMAL) Renal Function Panel w/EGFR (08/20/2025 5:31 AM EST) Sodium 135 133 - 146 mmol/L 08/20/2025 6:04 AM EST [facility] Potassium 4.0 3.5 - 5.3 mmol/L 08/20/2025 6:04 AM [facility] Chloride 98 98 - 110 mmol/L 08/20/2025 6:04 AM EST [facility] CO2 28 21 - 33 mmol/L 08/20/2025 6:04 AM [facility] Comment:High lactate dehydro genase concentrations in patient samples may cause falsely increased bicarbonate results. If markedly elevated LDH is observed or suspected, please assess results in conjunction with patient`s clinical presentation. In cases of discrepant results, consider evaluating CO2 in with a blood gas order. Anion Gap 9 3 - 16 mmol/L 08/20/2025 6:04 AM [facility] BUN 13 7 - 25 mg/dL 08/20/2025 6:04 AM [facility] Creatinine 0.53(L) 0.60 - 1.30 mg/dL 08/20/2025 6:04 AM [facility] Glucose 134(H) 70 - 100 mg/dL 08/20/2025 6:04 AM EST [facility] Calcium 9.3 8.6 - 10.3 mg/dL 08/20/2025 6:04 AM [facility] Phosphorus 4.7 2.1 - 4.7 mg/dL 08/20/2025 6:04 AM [facility] Albumin 3.9 3.5 - 5.7 g/dL 08/20/2025 6:04 AM [facility] Osmolality, Calculated 282 278 - 305 mOsm/kg 08/20/2025 6:04 AM [facility] EGFR >90 08/20/2025 6:04 AM [facility] Comment: As of 2021, the estimated GFR is calculated using the 2020 Chronic Kidney Disease Epidemiology Collaboration (CKD-EPI) equation. In line with the NKF-ASN Task Force Recommendations, this equation does not include a coefficient for race. A single eGFR value is calculated for each patient. The reference interval is >60 mL/min/1.73m2. eGFR values greater than 90 will be reported as >90mL/min/1.73m2. Reference: Kahlil C, Niru M, Govind DC, Ector ND, Anyi CA, Jonah LA, et al. A Unifying Approach for GFR Estimation: Recommendations of the NKF-ASN Task Force on Reassessing the inclusion of Race in Diagnosing Kidney Disease. Am J Kidney Dis. 2020. GFR is estimated using creatinine, age, and sex. Patient's values should be interpreted as a trend. Below 90 mL/min/1.73m2, the patient may have renal disease. For additional information: www.kidney.org Plasma 08/20/2025 5:31 AM EST 08/20/2025 5:38 AM EST us Marie Davila MD LAB BLOOD ORDERABLES Final Re sult [facility] Organization Address City/State/ZIP Co de Phone Number [facility] [address] * (ABNORMAL) CBC (08/20/2025 5:31 AM EST) WBC 9.0 3.8 - 10.8 10E3/uL 08/20/2025 5:44 AM EST [facility] RBC 5.21(H) 3.80 - 5.10 10E6/uL 08/20/2025 5:44 AM EST [facility] Hemoglobin 16.6(H) 11.7 - 15.5 g/dL 08/20/2025 5:44 AM EST [facility] Hematocrit 47.5(H) 35.0 - 45.0 % 08/20/2025 5:44 AM EST [facility] MCV 91.3 80.0 - 100.0 fL 08/20/2025 5:44 AM EST [facility] MCH 31.8 27.0 - 33.0 pg 08/20/2025 5:44 AM EST [facility] MCHC 34.9 32.0 - 36.0 g/dL 08/20/2025 5:44 AM EST [facility] RDW 14.2 11.0 - 15.0 % 08/20/2025 5:44 AM EST [facility] Platelets 151 140 - 400 10E3/uL 08/20/2025 5:44 AM EST [facility] MPV 8.2 7.5 - 11.5 fL 08/20/2025 5:44 AM EST [facility] Whole Blood 08/20/2025 5:31 AM EST 08/20/2025 5:38 AM EST Marie Davila MD LAB BLOOD ORDERABLES Final Re sult [facility] [address] [facility]. [address] * aPTT-Heparin (08/20/2025 5:31 AM EST) hPTT 114.0 90.0 - 120.0 seconds 08/20/2025 6:07 AM EST [facility] Plasma 08/20/2025 5:31 AM EST 08/20/2025 5:38 AM EST Ousmane Palumbo MD LAB BLOOD ORDERABLES Fi nal Result Performing Organization Address City/[facility] Co de Phone Number [facility] [address] * FALGUNI Rhythm Strip - Scan (08/19/2025 8:30 PM EST) us Scanning Uchhim SCAN DOCS - NO RESULTS Final Res ult * Protime-INR (08/19/2025 2:36 PM EST) Protime 12.9 12.1 - 15.1 seconds 08/19/2025 3:45 PM EST [facility] INR 0.9 0.9 - 1.1 08/19/2025 3:45 PM EST [facility] Comment: RECOMMENDED THERAPEUTIC RANGES USING INR : Stable oral anticoagulant therapy: 2.0 - 3.0 Mechanical prosthetic heart valve: 2.5 - 3.5 Recurrent acute myocardial infarction: 2.5 - 3.5 Plasma 08/19/2025 2:36 PM EST 08/19/2025 3:18 PM EST us Marie Davila MD LAB BLOOD ORDERABLES Final Re sult [facility] [address] 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 Report Verified by: Lucian Cortes MD at 08/19/2025 11:20 AM EST Narrative 08/19/2025 11:20 AM EST EXAM: CT CARDIAC WITH CORONARY EVALUATION EXAM: CT THORACIC STRUCTURES-RAD READ ONLY INDICATION: Thrombus possibly on TAVR valve, contraindications for FIDEL. Please evaluate aortic valve 2/2 echo density noted on prior scan COMPARISON: 08/15/2025 TECHNIQUE: Using a [address] scanner, a preliminary senior hr generalist study was obtained. Following administration of intravenous contrast, 0.63 mm collimated images were obtained through the aortic valve. Full field images of the chest were reconstructed and reviewed. ACQUISITION: Prospective ECG triggering was used. Heart rate at the time of acquisition was approximately 53 bpm. CONTRAST: 80 mL of Omnipaque-350 was then administered at 6 mL/sec intravenously. MEDICATIONS: 0.4 mg sublingual nitroglycerin. TECHNICAL QUALITY: Good, with minor artifact but good diagnostic quality. FINDINGS: Postprocedural changes of TAVR with a CoreValve Evolut device are again demonstrated. As seen on recent EKG-gated CTA chest, there is an irregular globular intraluminal filling defect within the device located along the noncoronary sinus (301/360) measuring 1.2 x 0.8 cm in the axial plane and roughly 9 mm craniocaudal extent. Heart is stable in CT appearance. Mild coronary artery calcifications and a stent within the RCA. No pericardial effusion. The ascending aorta is ectatic up to approximately 4.1 cm, as before. The main pulmonary artery is normal in caliber. No central pulmonary embolism is demonstrated although not specifically evaluated on this exam. Nontargeted assessment of the remainder the chest demonstrates no significant change from the recent CTA. Procedure Note Lucian Cortes MD - 08/19/2025 EXAM: CT CARDIAC WITH CORONARY EVALUATION EXAM: CT THORACIC STRUCTURES-RAD READ ONLY INDICATION: Thrombus possibly on TAVR valve, contraindications for FIDEL.Please evaluate aortic valve 2/2 echo density noted on prior scan COMPARISON: 08/15/2025 TECHNIQUE: Using a [address] scanner, a preliminary senior hr generalist study wasobtained. Following administration of intravenous contrast, 0.63 mmcollimated images were obtained through the aortic valve. Full fieldimages of the chest were reconstructed and reviewed. ACQUISITION: Prospective ECG triggering was used. Heart rate at the timeof acquisition was approximately 53 bpm. CONTRAST: 80 mL of Omnipaque-350 was then administered at 6 mL/secintravenously. MEDICATIONS: 0.4 mg sublingual nitroglycerin. TECHNICAL QUALITY: Good, with minor artifact but good diagnosticquality. FINDINGS: Postprocedural changes of TAVR with a CoreValve Evolut device are againdemonstrated. As seen on recent EKG-gated CTA chest, there is an irregularglobular intraluminal filling defect within the device located along thenoncoronary sinus (301/360) measuring 1.2 x 0.8 cm in the axial plane androughly 9 mm craniocaudal extent. Heart is stable in CT appearance. Mild coronary artery calcifications mag stent within the RCA. No pericardial effusion. The ascending aorta isectatic up to approximately 4.1 cm, as before. The main pulmonary arteryis normal in caliber. No central pulmonary embolism is demonstratedalthough not specifically evaluated on this exam. Nontargeted assessment of the remainder the chest demonstrates nosignificant change from the recent CTA. IMPRESSION: Status post TAVR with persistent intraluminal filling defect consistentwith thrombus, unchanged from 4 days ago. Report Verified by: Lucian Cortes MD at 08/19/2025 11:20 AM EST us Chely Andrews DO IMG CT ORDERABLES Fin al Result * CT Cardiac with Coronary Evaluation (08/19/2025 10:59 AM EST) Anatomical Region Laterality Modality Chest Computed Tomogra phy 08/19/2025 10:4 4 AM EST Impressions 08/19/2025 11:20 AM EST IMPRESSION: Status post TAVR with persistent intraluminal filling defect consistent with thrombus, unchanged from 4 days ago. Report Verified by: Lucian Cortes MD at 08/19/2025 11:20 AM EST Narrative 08/19/2025 11:20 AM EST EXAM: CT CARDIAC WITH CORONARY EVALUATION EXAM: CT THORACIC STRUCTURES-RAD READ ONLY INDICATION: Thrombus possibly on TAVR valve, contraindications for FIDEL. Please evaluate aortic valve 2/2 echo density noted on prior scan COMPARISON: 08/15/2025 TECHNIQUE: Using a [address] scanner, a preliminary senior hr generalist study was obtained. Following administration of intravenous contrast, 0.63 mm collimated images were obtained through the aortic valve. Full field images of the chest were reconstructed and reviewed. ACQUISITION: Prospective ECG triggering was used. Heart rate at the time of acquisition was approximately 53 bpm. CONTRAST: 80 mL of Omnipaque-350 was then administered at 6 mL/sec intravenously. MEDICATIONS: 0.4 mg sublingual nitroglycerin. TECHNICAL QUALITY: Good, with minor artifact but good diagnostic quality. FINDINGS: Postprocedural changes of TAVR with a CoreValve Evolut device are again demonstrated. As seen on recent EKG-gated CTA chest, there is an irregular globular intraluminal filling defect within the device located along the noncoronary sinus (301/360) measuring 1.2 x 0.8 cm in the axial plane and roughly 9 mm craniocaudal extent. Heart is stable in CT appearance. Mild coronary artery calcifications and a stent within the RCA. No pericardial effusion. The ascending aorta is ectatic up to approximately 4.1 cm, as before. The main pulmonary artery is normal in caliber. No central pulmonary embolism is demonstrated although not specifically evaluated on this exam. Nontargeted assessment of the remainder the chest demonstrates no significant change from the recent CTA. Procedure Note Lucian Cortes MD - 08/19/2025 EXAM: CT CARDIAC WITH CORONARY EVALUATION EXAM: CT THORACIC STRUCTURES-RAD READ ONLY INDICATION: Thrombus possibly on TAVR valve, contraindications for FIDEL.Please evaluate aortic valve 2/2 echo density noted on prior scan COMPARISON: 08/15/2025 TECHNIQUE: Using a [address] scanner, a preliminary senior hr generalist study wasobtained. Following administration of intravenous contrast, 0.63 mmcollimated images were obtained through the aortic valve. Full fieldimages of the chest were reconstructed and reviewed. ACQUISITION: Prospective ECG triggering was used. Heart rate at the timeof acquisition was approximately 53 bpm. CONTRAST: 80 mL of Omnipaque-350 was then administered at 6 mL/secintravenously. MEDICATIONS: 0.4 mg sublingual nitroglycerin. TECHNICAL QUALITY: Good, with minor artifact but good diagnosticquality. FINDINGS: Postprocedural changes of TAVR with a CoreValve Evolut device are againdemonstrated. As seen on recent EKG-gated CTA chest, there is an irregularglobular intraluminal filling defect within the device located along thenoncoronary sinus (301/360) measuring 1.2 x 0.8 cm in the axial plane androughly 9 mm craniocaudal extent. Heart is stable in CT appearance. Mild coronary artery calcifications mag stent within the RCA. No pericardial effusion. The ascending aorta isectatic up to approximately 4.1 cm, as before. The main pulmonary arteryis normal in caliber. No central pulmonary embolism is demonstratedalthough not specifically evaluated on this exam. Nontargeted assessment of the remainder the chest demonstrates nosignificant change from the recent CTA. IMPRESSION: Status post TAVR with persistent intraluminal filling defect consistentwith thrombus, unchanged from 4 days ago. Report Verified by: Lucian Cortes MD at 08/19/2025 11:20 AM EST Chely Andrews DO IMG CT ORDERABLES Fin al Result * FALGUNI Rhythm Strip - Scan (08/19/2025 8:09 AM EST) us Scanning Uchhim SCAN DOCS - NO RESULTS Final Res ult * aPTT-Heparin (08/19/2025 5:52 AM EST) hPTT 117.5 90.0 - 120.0 seconds 08/19/2025 6:34 AM EST [facility] Plasma 08/19/2025 5:52 AM EST 08/19/2025 6:13 AM EST Chato Boone MD LAB BLOOD ORDERABLES Giuliana l Result [facility] [address] * (ABNORMAL) CBC (08/19/2025 5:52 AM EST) [facility] WBC 7.4 3.8 - 10.8 10E3/uL 08/19/2025 6:30 AM EST [facility] RBC 5.25(H) 3.80 - 5.10 10E6/uL 08/19/2025 6:30 AM EST [facility] Hemoglobin 16.4(H) 11.7 - 15.5 g/dL 08/19/2025 6:30 AM EST [facility] Hematocrit 49.0(H) 35.0 - 45.0 % 08/19/2025 6:30 AM EST [facility] MCV 93.2 80.0 - 100.0 fL 08/19/2025 6:30 AM EST [facility] MCH 31.3 27.0 - 33.0 pg 08/19/2025 6:30 AM EST [facility] MCHC 33.6 32.0 - 36.0 g/dL 08/19/2025 6:30 AM EST [facility] RDW 14.3 11.0 - 15.0 % 08/19/2025 6:30 AM EST [facility] Platelets 139(L) 140 - 400 10E3/uL 08/19/2025 6:30 AM EST [facility] MPV 8.4 7.5 - 11.5 fL 08/19/2025 6:30 AM EST [facility] Whole Blood 08/19/2025 5:52 AM EST 08/19/2025 6:13 AM EST Chely Andrews DO LAB BLOOD ORDERABLES Final Result [facility] [address] * Magnesium (08/19/2025 5:52 AM EST) Magnesium 1.9 1.5 - 2.5 mg/dL 08/19/2025 7:08 AM EST [facility] Plasma 08/19/2025 5:52 AM EST 08/19/2025 6:13 AM EST Chely Andrews DO LAB BLOOD ORDERABLES Final Result [facility] [address] [place] [address] * (ABNORMAL) Renal Function Panel w/EGFR (08/19/2025 5:52 AM EST) Sodium 135 133 - 146 mmol/L 08/19/2025 7:08 AM [facility] Potassium 4.0 3.5 - 5.3 mmol/L 08/19/2025 7:08 AM [facility] Chloride 99 98 - 110 mmol/L 08/19/2025 7:08 AM [facility] CO2 30 21 - 33 mmol/L 08/19/2025 7:08 AM [facility] Comment:High lactate dehydro genase concentrations in patient samples may cause falsely increased bicarbonate results. If markedly elevated LDH is observed or suspected, please assess results in conjunction with patient`s clinical presentation. In cases of discrepant results, consider evaluating CO2 in with a blood gas order. Anion Gap 6 3 - 16 mmol/L 08/19/2025 7:08 AM EST [facility] BUN 9 7 - 25 mg/dL 08/19/2025 7:08 AM [facility] Creatinine 0.52(L) 0.60 - 1.30 mg/dL 08/19/2025 7:08 AM [facility] Glucose 122(H) 70 - 100 mg/dL 08/19/2025 7:08 AM [facility] Calcium 8.9 8.6 - 10.3 mg/dL 08/19/2025 7:08 AM [facility] Phosphorus 4.1 2.1 - 4.7 mg/dL 08/19/2025 7:08 AM [facility] Albumin 3.8 3.5 - 5.7 g/dL 08/19/2025 7:08 AM [facility] Osmolality, Calculated 280 278 - 305 mOsm/kg 08/19/2025 7:08 AM EST [facility] EGFR >90 08/19/2025 7:08 AM EST [facility] Comment: As of 2021, the estimated GFR is calculated using the 2020 Chronic Kidney Disease Epidemiology Collaboration (CKD-EPI) equation. In line with the NKF-ASN Task Force Recommendations, this equation does not include a coefficient for race. A single eGFR value is calculated for each patient. The reference interval is >60 mL/min/1.73m2. eGFR values greater than 90 will be reported as >90mL/min/1.73m2. Reference: Kahlil C, Niru M, Govind DC, Ector ND, Anyi CA, Jonah LA, et al. A Unifying Approach for GFR Estimation: Recommendations of the NKF-ASN Task Force on Reassessing the inclusion of Race in Diagnosing Kidney Disease. Am J Kidney Dis. 2020. GFR is estimated using creatinine, age, and sex. Patient's values should be interpreted as a trend. Below 90 mL/min/1.73m2, the patient may have renal disease. For additional information: www.kidney.org Plasma 08/19/2025 5:52 AM EST 08/19/2025 6:13 AM EST us Chely Andrews DO LAB BLOOD ORDERABLES Final Result [facility] [address] * (ABNORMAL) POC Glucose Monitoring Device (08/18/2025 11:44 PM EST) POC Glucose Monitoring Device 191(H) 70 - 100 mg/dL 08/18/2025 11:45 PM EST [facility] Blood 08/18/2025 11:4 4 PM EST 08/18/2025 11:45 PM EST Liza Forrest MD POINT OF CARE TEST ORDERABLES Final Result [facility] [address] [facility] * FALGUNI Rhythm Strip - Scan (08/18/2025 7:23 PM EST) us Scanning Uchhim SCAN DOCS - NO RESULTS Final Res ult * aPTT-Heparin (08/18/2025 5:50 PM EST) hPTT 93.7 90.0 - 120.0 seconds 08/18/2025 6:39 PM EST [facility] Plasma 08/18/2025 5:50 PM EST 08/18/2025 6:14 PM EST [facility] LAB BLOOD ORDERABLES Final Result Performing Organization Address City/[facility]/ZIP Co de Phone Number [facility] [address] [facility] * Magnesium (08/18/2025 5:50 PM EST) Magnesium 2.0 1.5 - 2.5 mg/dL 08/18/2025 6:48 PM EST [facility] Plasma 08/18/2025 5:50 PM EST 08/18/2025 6:14 PM EST [facility] Final Result [facility] [address] [facility] * (ABNORMAL) Renal Function Panel w/EGFR (08/18/2025 5:50 PM EST) Sodium 137 133 - 146 mmol/L 08/18/2025 6:48 PM EST [facility] Potassium 3.5 3.5 - 5.3 mmol/L 08/18/2025 6:48 PM EST [facility] Chloride 97(L) 98 - 110 mmol/L 08/18/2025 6:48 PM EST [facility] CO2 30 21 - 33 mmol/L 08/18/2025 6:48 PM EST [facility] Comment:High lactate dehydro genase concentrations in patient samples may cause falsely increased bicarbonate results. If markedly elevated LDH is observed or suspected, please assess results in conjunction with patient`s clinical presentation. In cases of discrepant results, consider evaluating CO2 in with a blood gas order. Anion Gap 10 3 - 16 mmol/L 08/18/2025 6:48 PM EST [facility] BUN 11 7 - 25 mg/dL 08/18/2025 6:48 PM EST [facility] Creatinine 0.51(L) 0.60 - 1.30 mg/dL 08/18/2025 6:48 PM EST [facility] Glucose 147(H) 70 - 100 mg/dL 08/18/2025 6:48 PM EST [facility] Calcium 9.3 8.6 - 10.3 mg/dL 08/18/2025 6:48 PM EST [facility] Phosphorus 4.6 2.1 - 4.7 mg/dL 08/18/2025 6:48 PM [facility] Albumin 3.9 3.5 - 5.7 g/dL 08/18/2025 6:48 PM [facility] Osmolality, Calculated 286 278 - 305 mOsm/kg 08/18/2025 6:48 PM EST [facility] EGFR >90 08/18/2025 6:48 PM EST [facility] Comment: As of 2021, the estimated GFR is calculated using the 2020 Chronic Kidney Disease Epidemiology Collaboration (CKD-EPI) equation. In line with the NKF-ASN Task Force Recommendations, this equation does not include a coefficient for race. A single eGFR value is calculated for each patient. The reference interval is >60 mL/min/1.73m2. eGFR values greater than 90 will be reported as >90mL/min/1.73m2. Reference: Kahlil C, Niru M, Govind DC, Ector ND, Anyi RAUSCH, Jonah LA, et al. A Unifying Approach for GFR Estimation: Recommendations of the NKF-ASN Task Force on Reassessing the inclusion of Race in Diagnosing Kidney Disease. Am J Kidney Dis. 2020. GFR is estimated using creatinine, age, and sex. Patient's values should be interpreted as a trend. Below 90 mL/min/1.73m2, the patient may have renal disease. For additional information: www.kidney.org Plasma 08/18/2025 5:50 PM EST 08/18/2025 6:14 PM EST Chely Andrews LAB BLOOD ORDERABLES Final Result Performing Organization Address [facility]/ZIP Co de Phone Number [facility] [address] [facility] * B Natriuretic Peptide (08/18/2025 5:50 PM EST) BNP 79 0 - 100 pg/mL 08/18/2025 6:52 PM EST [facility] Comment: BNP may be increased in the presence of sacubitril/valsartan (Entresto). Please interpret accordingly. Plasma 08/18/2025 5:50 PM EST 08/18/2025 6:14 PM EST Narrative [facility] - 08/18/2025 6:52 PM EST The presence of high concentrations of biotin may cause falsely lowered BNP results. Biotin interference may be seen if an individual is taking >5 mg biotin per day. Interpret BNP results in the context of the patient's clinical presentation. Chely Andrews LAB BLOOD ORDERABLES Final Result Performing Organization Address [facility] Co de Phone Number [facility] [address] [facility] * aPTT-Heparin (08/18/2025 10:26 AM EST) hPTT 115.8 90.0 - 120.0 seconds 08/18/2025 10:35 AM EST [facility] Plasma 08/18/2025 10:2 6 AM EST 08/18/2025 10:27 AM EST Ashwin Puga MD LAB BLOOD ORDERABLES Final Result Performing Organization Address [facility] Co de Phone Number [facility] [address] * Davian MPN [id number] w/Reflex (Exon 12-13, CALR, MPL) (08/18/2025 9:17 AM EST) Pathologist [facility] Davian MPN [id number] w/Reflex (Exon 12-13, CALR, MPL) See Scanned Report in EPIC Path tab. 08/27/2025 3:05 PM EST [facility] Whole Blood BLOOD SPECIMEN / Unknown 08/18/2025 9:17 AM EST 08/27/2025 3:05 PM EST us Chely Andrews DO PATHOLOGY/CYTOLOGY OR DERABLES Final Result [facility] [address] * (ABNORMAL) Renal Function Panel w/EGFR, STAT (08/18/2025 9:17 AM EST) Pathologist [facility] Sodium 136 133 - 146 mmol/L 08/18/2025 10:30 AM EST [facility] Potassium 3.1(L) 3.5 - 5.3 mmol/L 08/18/2025 10:30 AM EST [facility] Chloride 97(L) 98 - 110 mmol/L 08/18/2025 10:30 AM EST [facility] CO2 28 21 - 33 mmol/L 08/18/2025 10:30 AM EST [facility] Comment:High lactate dehydro genase concentrations in patient samples may cause falsely increased bicarbonate results. If markedly elevated LDH is observed or suspected, please assess results in conjunction with patient`s clinical presentation. In cases of discrepant results, consider evaluating CO2 in with a blood gas order. Anion Gap 11 3 - 16 mmol/L 08/18/2025 10:30 AM EST [facility] BUN 10 7 - 25 mg/dL 08/18/2025 10:30 AM EST [facility] Creatinine 0.45(L) 0.60 - 1.30 mg/dL 08/18/2025 10:30 AM EST [facility] Glucose 146(H) 70 - 100 mg/dL 08/18/2025 10:30 AM EST [facility] Calcium 9.0 8.6 - 10.3 mg/dL 08/18/2025 10:30 AM EST [facility] Phosphorus 3.6 2.1 - 4.7 mg/dL 08/18/2025 10:30 AM EST [facility] Albumin 3.9 3.5 - 5.7 g/dL 08/18/2025 10:30 AM EST [facility] Osmolality, Calculated 284 278 - 305 mOsm/kg 08/18/2025 10:30 AM EST [facility] EGFR >90 08/18/2025 10:30 AM EST [facility] Comment: As of 2021, the estimated GFR is calculated using the 2020 Chronic Kidney Disease Epidemiology Collaboration (CKD-EPI) equation. In line with the NKF-ASN Task Force Recommendations, this equation does not include a coefficient for race. A single eGFR value is calculated for each patient. The reference interval is >60 mL/min/1.73m2. eGFR values greater than 90 will be reported as >90mL/min/1.73m2. Reference: Kahlil C, Niru M, Govind DC, Ector ND, Anyi CA, Jonah LA, et al. A Unifying Approach for GFR Estimation: Recommendations of the NKF-ASN Task Force on Reassessing the inclusion of Race in Diagnosing Kidney Disease. Am J Kidney Dis. 2020. GFR is estimated using creatinine, age, and sex. Patient's values should be interpreted as a trend. Below 90 mL/min/1.73m2, the patient may have renal disease. For additional information: www.kidney.org Plasma 08/18/2025 9:17 AM EST 08/18/2025 9:51 AM EST us Ashwin Puga MD LAB BLOOD ORDERABLES Final Result [facility] [address] [place] [address] * FALGUNI Rhythm Strip - Scan (08/18/2025 8:19 AM EST) us Scanning Uchhim SCAN DOCS - NO RESULTS Final Res ult * (ABNORMAL) CBC (08/18/2025 7:39 AM EST) WBC 7.8 3.8 - 10.8 10E3/uL 08/18/2025 8:08 AM EST [facility] RBC 5.38(H) 3.80 - 5.10 10E6/uL 08/18/2025 8:08 AM EST [facility] Hemoglobin 17.1(H) 11.7 - 15.5 g/dL 08/18/2025 8:08 AM EST [facility] Hematocrit 49.1(H) 35.0 - 45.0 % 08/18/2025 8:08 AM EST [facility] MCV 91.3 80.0 - 100.0 fL 08/18/2025 8:08 AM EST [facility] MCH 31.7 27.0 - 33.0 pg 08/18/2025 8:08 AM EST [facility] MCHC 34.8 32.0 - 36.0 g/dL 08/18/2025 8:08 AM EST [facility] RDW 14.0 11.0 - 15.0 % 08/18/2025 8:08 AM EST [facility] Platelets 140 140 - 400 10E3/uL 08/18/2025 8:08 AM EST [facility] MPV 8.4 7.5 - 11.5 fL 08/18/2025 8:08 AM EST [facility] Whole Blood 08/18/2025 7:39 AM EST 08/18/2025 7:48 AM EST Chely Andrews DO LAB BLOOD ORDERABLES Final Result [facility] [address] [place] [address], [facility] * Magnesium (08/18/2025 7:39 AM EST) Magnesium 1.8 1.5 - 2.5 mg/dL 08/18/2025 8:43 AM EST [facility] Plasma 08/18/2025 7:39 AM EST 08/18/2025 7:48 AM EST us Chely Andrews DO LAB BLOOD ORDERABLES Final Result [facility] [address] [place] [address], [facility] * (ABNORMAL) Renal Function Panel w/EGFR (08/18/2025 7:39 AM EST) Sodium 137 133 - 146 mmol/L 08/18/2025 8:43 AM EST [facility] Potassium 3.4(L) 3.5 - 5.3 mmol/L 08/18/2025 8:43 AM EST [facility] Chloride 98 98 - 110 mmol/L 08/18/2025 8:43 AM EST [facility] CO2 26 21 - 33 mmol/L 08/18/2025 8:43 AM EST [facility] Comment:High lactate dehydro genase concentrations in patient samples may cause falsely increased bicarbonate results. If markedly elevated LDH is observed or suspected, please assess results in conjunction with patient`s clinical presentation. In cases of discrepant results, consider evaluating CO2 in with a blood gas order. Anion Gap 13 3 - 16 mmol/L 08/18/2025 8:43 AM EST [facility] BUN 11 7 - 25 mg/dL 08/18/2025 8:43 AM EST [facility] Creatinine 0.42(L) 0.60 - 1.30 mg/dL 08/18/2025 8:43 AM EST [facility] Glucose 107(H) 70 - 100 mg/dL 08/18/2025 8:43 AM EST [facility] Calcium 9.0 8.6 - 10.3 mg/dL 08/18/2025 8:43 AM EST [facility] Phosphorus 4.7 2.1 - 4.7 mg/dL 08/18/2025 8:43 AM EST [facility] Albumin 3.9 3.5 - 5.7 g/dL 08/18/2025 8:43 AM EST [facility] Osmolality, Calculated 284 278 - 305 mOsm/kg 08/18/2025 8:43 AM EST [facility] EGFR >90 08/18/2025 8:43 AM EST [facility] Comment: As of 2021, the estimated GFR is calculated using the 2021 Chronic Kidney Disease Epidemiology Collaboration (CKD-EPI) equation. In line with the NKF-ASN Task Force Recommendations, this equation does not include a coefficient for race. A single eGFR value is calculated for each patient. The reference interval is >60 mL/min/1.73m2. eGFR values greater than 90 will be reported as >90mL/min/1.73m2. Reference: Kahlil C, Niru M, Govind DC, Ector ND, Anyi CA, Jonah LA, et al. A Unifying Approach for GFR Estimation: Recommendations of the NKF-ASN Task Force on Reassessing the inclusion of Race in Diagnosing Kidney Disease. Am J Kidney Dis. 2020. GFR is estimated using creatinine, age, and sex. Patient's values should be interpreted as a trend. Below 90 mL/min/1.73m2, the patient may have renal disease. For additional information: www.kidney.org Plasma 08/18/2025 7:39 AM EST 08/18/2025 7:48 AM EST us Chely Andrews DO LAB BLOOD ORDERABLES Final Result Performing Organization Address City/[facility]/ZIP Co de Phone Number [facility] [address] [place] [address] * (ABNORMAL) aPTT-Heparin (08/17/2025 7:42 PM EST) hPTT 83.7(L) 90.0 - 120.0 seconds 08/17/2025 8:26 PM EST [facility] Plasma 08/17/2025 7:42 PM EST 08/17/2025 7:57 PM EST us Ashwin Puga MD LAB BLOOD ORDERABLES Final Result Performing Organization Address City/[facility]/ZIP Co de Phone Number [facility] [address] [facility] * ECG 12 lead (MUSE) (08/17/2025 1:04 PM EST) 08/17/2025 1:04 PM EST Narrative MUSE - 08/18/2025 9:53 PM EST Ventricular Rate: 72 BPM Atrial Rate: 72 BPM P-R Interval: 130 ms QRS Duration: 84 ms QT: 432 ms QTc: 473 ms P [place]: 27 degrees R [place]: -1 degrees T [place]: 26 degrees Diagnosis Line: NORMAL SINUS RHYTHM NONSPECIFIC ST-T SEGMENT CHANGES ABNORMAL ECG Confirmed by Zahraa Diehl ([id number]) on 08/18/2025 9:53:47 PM us Quita Ricketts MD ECG ORDERABLES Final Result Performing Organization Address [facility]/ZIP Co de Phone Number MUSE * aPTT-Heparin (08/17/2025 12:34 PM EST) hPTT 110.0 90.0 - 120.0 seconds 08/17/2025 1:25 PM EST [facility] Plasma 08/17/2025 12:3 4 PM EST 08/17/2025 12:56 PM EST us Quita iRcketts MD LAB BLOOD ORDERABLES Final Re sult Performing Organization Address [facility] de Phone Number [facility] [address] [facility] * EKG - scan (08/17/2025 11:02 AM EST) us Scanning Uchhim SCAN DOCS - NO RESULTS Final Res ult * Magnesium, STAT (08/17/2025 7:59 AM EST) Magnesium 1.7 1.5 - 2.5 mg/dL 08/17/2025 9:24 AM EST [facility] Plasma 08/17/2025 7:59 AM EST 08/17/2025 8:35 AM EST us Ashwin Puga MD LAB BLOOD ORDERABLES Final Result Performing Organization Address [facility] Co de Phone Number [facility] [address] * (ABNORMAL) Renal Function Panel w/EGFR (08/17/2025 7:59 AM EST) Sodium 138 133 - 146 mmol/L 08/17/2025 9:24 AM [facility] Potassium 3.0(L) 3.5 - 5.3 mmol/L 08/17/2025 9:24 AM [facility] Comment:Hemolysis Present: R esults may be influenced artificially. Recommend recollection as clinically indicated. Chloride 98 98 - 110 mmol/L 08/17/2025 9:24 AM [facility] CO2 30 21 - 33 mmol/L 08/17/2025 9:24 AM [facility] Comment:High lactate dehydro genase concentrations in patient samples may cause falsely increased bicarbonate results. If markedly elevated LDH is observed or suspected, please assess results in conjunction with patient`s clinical presentation. In cases of discrepant results, consider evaluating CO2 in with a blood gas order. Anion Gap 10 3 - 16 mmol/L 08/17/2025 9:24 AM [facility] BUN 9 7 - 25 mg/dL 08/17/2025 9:24 AM [facility] Creatinine 0.51(L) 0.60 - 1.30 mg/dL 08/17/2025 9:24 AM [facility] Glucose 159(H) 70 - 100 mg/dL 08/17/2025 9:24 AM [facility] Calcium 8.6 8.6 - 10.3 mg/dL 08/17/2025 9:24 AM [facility] Phosphorus 3.7 2.1 - 4.7 mg/dL 08/17/2025 9:24 AM [facility] Albumin 3.7 3.5 - 5.7 g/dL 08/17/2025 9:24 AM [facility] Osmolality, Calculated 288 278 - 305 mOsm/kg 08/17/2025 9:24 AM [facility] EGFR >90 08/17/2025 9:24 AM [facility] Comment: As of 2021, the estimated GFR is calculated using the 2020 Chronic Kidney Disease Epidemiology Collaboration (CKD-EPI) equation. In line with the NKF-ASN Task Force Recommendations, this equation does not include a coefficient for race. A single eGFR value is calculated for each patient. The reference interval is >60 mL/min/1.73m2. eGFR values greater than 90 will be reported as >90mL/min/1.73m2. Reference: Kahlil C, Niru M, Govind DC, Ector ND, Anyi CA, Jonah LA, et al. A Unifying Approach for GFR Estimation: Recommendations of the NKF-ASN Task Force on Reassessing the inclusion of Race in Diagnosing Kidney Disease. Am J Kidney Dis. 2020. GFR is estimated using creatinine, age, and sex. Patient's values should be interpreted as a trend. Below 90 mL/min/1.73m2, the patient may have renal disease. For additional information: www.kidney.org Plasma 08/17/2025 7:59 AM EST 08/17/2025 8:35 AM EST us Ashwin Puga MD LAB BLOOD ORDERABLES Final Result [facility] [address] * FALGUNI Rhythm Strip - Scan (08/17/2025 7:44 AM EST) us Scanning Uchhim SCAN DOCS - NO RESULTS Final Res ult * Lipid Profile (08/17/2025 5:43 AM EST) Non-HDL Cholesterol, Calculated 106 0 - 129 mg/dL 08/17/2025 7:11 AM EST [facility] Comment: Desirable: < 130 mg/dL Above Desirable: 130-159 mg/dL Borderline High: 160-189 mg/dL High: 190-219 mg/dL Very High: > 219 mg/dL Cholesterol, Total 188 0 - 200 mg/dL 08/17/2025 7:11 AM EST [facility] Triglycerides 124 10 - 149 mg/dL 08/17/2025 7:11 AM EST [facility] HDL 82 60 - 92 mg/dL 08/17/2025 7:11 AM EST [facility] Comment: LIPID PROFILE INTERPRETATION CHOLESTEROL,TOTAL(mg/dL) DESIRABLE: < 200 BORDERLINE HIGH RISK: 200 - 239 HIGH RISK(UNDESIRABLE): =/> 240 LDL CHOLESTEROL(mg/dL) OPTIMAL: < 100 NEAR HIGH OPTIMAL: 100 - 129 BORDERLINE HIGH RISK: 130 - 159 HIGH RISK: 160 - 189 VERY HIGH RISK: =/> 190 HDL CHOLESTEROL(mg/dL) HIGH RISK(UNDESIRABLE): < 40 BORDERLINE: 40 - 59 LOW RISK (DESIRABLE): => 60 TRIGLYCERIDES (mg/dL) NORMAL(DESIRABLE): < 150 BORDERLINE HIGH RISK: 150 - 199 HIGH RISK: 200 - 499 VERY HIGH RISK: =/> 500 Based on the guidlines of the National Cholesterol Education Program (NCEP). Assumes sample obtained after a 9- to 12- hour fast. LDL Cholesterol 81 mg/dL 7:11 AM EST [facility] Plasma 08/17/2025 5:43 AM EST 08/17/2025 6:18 AM EST Narrative [facility] - 08/17/2025 7:11 AM EST LDL cholesterol calculated using the Friedewald equation. Heather Toribio PharmD LAB BLOOD ORDERABLES Final Result Performing Organization Address City/State/[facility] Co de Phone Number [facility] [address] * (ABNORMAL) CBC (08/17/2025 5:43 AM EST) WBC 8.5 3.8 - 10.8 10E3/uL 08/17/2025 6:27 AM EST [facility] RBC 5.05 3.80 - 5.10 10E6/uL 08/17/2025 6:27 AM EST [facility] Hemoglobin 15.9(H) 11.7 - 15.5 g/dL 08/17/2025 6:27 AM EST [facility] Hematocrit 46.8(H) 35.0 - 45.0 % 08/17/2025 6:27 AM EST [facility] MCV 92.6 80.0 - 100.0 fL 08/17/2025 6:27 AM EST [facility] MCH 31.5 27.0 - 33.0 pg 08/17/2025 6:27 AM EST [facility] MCHC 34.0 32.0 - 36.0 g/dL 08/17/2025 6:27 AM EST [facility] RDW 14.1 11.0 - 15.0 % 08/17/2025 6:27 AM EST [facility] Platelets 133(L) 140 - 400 10E3/uL 08/17/2025 6:27 AM EST [facility] MPV 8.7 7.5 - 11.5 fL 08/17/2025 6:27 AM EST [facility] Whole Blood 08/17/2025 5:43 AM EST 08/17/2025 6:18 AM EST [id number] LAB BLOOD ORDERABLES Final Result [facility] [address] [facility]. [address] * Magnesium (08/17/2025 5:43 AM EST) Magnesium 2.0 1.5 - 2.5 mg/dL 08/17/2025 7:11 AM EST [facility] Comment:HEMOLYSIS EVIDENT. R ESULTS MAY BE INFLUENCED. Plasma 08/17/2025 5:43 AM EST 08/17/2025 6:18 AM EST [id number] LAB BLOOD ORDERABLES Final Result Performing Organization Address [facility]/ZIP Co de Phone Number [facility] [address] * (ABNORMAL) Renal Function Panel w/EGFR (08/17/2025 5:43 AM EST) Sodium 138 133 - 146 mmol/L 08/17/2025 7:11 AM EST [facility] Potassium 3.9 3.5 - 5.3 mmol/L 08/17/2025 7:11 AM EST [facility] Comment:Hemolysis Present: R esults may be influenced artificially. Recommend recollection as clinically indicated. Chloride 100 98 - 110 mmol/L 08/17/2025 7:11 AM EST [facility] CO2 27 21 - 33 mmol/L 08/17/2025 7:11 AM EST [facility] Comment:High lactate dehydro genase concentrations in patient samples may cause falsely increased bicarbonate results. If markedly elevated LDH is observed or suspected, please assess results in conjunction with patient`s clinical presentation. In cases of discrepant results, consider evaluating CO2 in with a blood gas order. Anion Gap 11 3 - 16 mmol/L 08/17/2025 7:11 AM EST [facility] BUN 9 7 - 25 mg/dL 08/17/2025 7:11 AM EST [facility] Creatinine 0.44(L) 0.60 - 1.30 mg/dL 08/17/2025 7:11 AM EST [facility] Glucose 89 70 - 100 mg/dL 08/17/2025 7:11 AM EST [facility] Calcium 8.6 8.6 - 10.3 mg/dL 08/17/2025 7:11 AM EST [facility] Phosphorus 4.8(H) 2.1 - 4.7 mg/dL 08/17/2025 7:11 AM EST [facility] Comment:HEMOLYSIS EVIDENT. R ESULTS MAY BE INFLUENCED. Albumin 3.6 3.5 - 5.7 g/dL 08/17/2025 7:11 AM EST [facility] Osmolality, Calculated 284 278 - 305 mOsm/kg 08/17/2025 7:11 AM EST [facility] EGFR >90 08/17/2025 7:11 AM EST [facility] Comment: As of 2021, the estimated GFR is calculated using the 2020 Chronic Kidney Disease Epidemiology Collaboration (CKD-EPI) equation. In line with the NKF-ASN Task Force Recommendations, this equation does not include a coefficient for race. A single eGFR value is calculated for each patient. The reference interval is >60 mL/min/1.73m2. eGFR values greater than 90 will be reported as >90mL/min/1.73m2. Reference: Kahlil C, Niru M, Govind DC, Ector ND, Anyi CA, Jonah LA, et al. A Unifying Approach for GFR Estimation: Recommendations of the NKF-ASN Task Force on Reassessing the inclusion of Race in Diagnosing Kidney Disease. Am J Kidney Dis. 2020. GFR is estimated using creatinine, age, and sex. Patient's values should be interpreted as a trend. Below 90 mL/min/1.73m2, the patient may have renal disease. For additional information: www.kidney.org Plasma 08/17/2025 5:43 AM EST 08/17/2025 6:18 AM EST us Chely Andrews DO LAB BLOOD ORDERABLES Final Result Performing Organization Address [facility] Co de Phone Number [address] * (ABNORMAL) aPTT-Heparin (08/17/2025 5:43 AM EST) hPTT 79.6(L) 90.0 - 120.0 seconds 08/17/2025 6:34 AM EST [facility] Plasma 08/17/2025 5:43 AM EST 08/17/2025 6:18 AM EST us Ashwin Puga MD LAB BLOOD ORDERABLES Final Result Performing Organization Address [facility] Co de Phone Number [facility] [address] [place] [address] * FALGUNI Rhythm Strip - Scan (08/16/2025 8:54 PM EST) us Scanning Uchhim SCAN DOCS - NO RESULTS Final Res ult * ECHO COMPLETE (08/16/2025 4:00 PM EST) Anatomical Region Laterality Modality Chest Ultrasound 08/16/2025 3:42 PM EST Narrative 08/16/2025 4:41 PM EST * [facility]* [address] [place] [address] Transthoracic Echocardiogram Patient: Nellie Alves Room: 6354 Height: 60in MR Number: [id number] : 1965 Weight: 151lb Account: [id number] Gender: F BP: 100 / 68 Study Date: 08/16/2025 Age: 59 BSA: 1.66m^2 Referring physician: Chato Boone Interpreting physician: CotIndra rg Vlad ROOM CLERK Christianne Becker ORDERING Chato Boone REFERRING Chato Boone ATTENDING Liza Forrest MD ADMITTING Liza Forrest MD Procedure:TRANSTHORACIC ECHO (TTE) Order: Accession COMPLETE Number:[id number] Indications: Valve disorders/disease -aortic stenosis (I35.0). PMH: Chronic obstructive pulmonary disease. Risk factors: The patient is a current tobacco user. History of s/p TAVR (2022), CAD s/p multiple PCIs. Study data: Height: 60in. 152.4cm. Weight: 151lb. 68.5kg. The previous study was not available, so comparison was made to the report of 04/16/2023. Study status: Routine. Objective: Diagnostic evaluation. Procedure: A transthoracic echocardiogram was performed. Image quality was fair. Scanning was performed from the parasternal, apical, subcostal, and suprasternal notch acoustic windows. Transthoracic echocardiogram. M-mode, complete 2D, complete spectral Doppler, color Doppler, and tissue Doppler. Birthdate: Patient birthdate: 1965. Age: Patient is 59year(s) old. Sex: gender: female. Body mass index: BMI: 29.5kg/m^2. Body surface area: BSA: 1.66m^2. Blood pressure: 100/68 Patient status: Inpatient. Study date: Study date: 08/16/2025. Study time: 03:42 PM. Location: Echo laboratory. Study Conclusions - Left ventricle: The cavity size is normal. There is mild focal basal hypertrophy. There is hypertrophy of the septum. Systolic function is normal. The estimated ejection fraction is 60-65%. Wall motion is normal; there are no regional wall motion abnormalities. - Aortic valve: A bioprosthetic valve is present. There is mild regurgitation. The mean systolic gradient is 6mm Hg. - Mitral valve: There is mild regurgitation. - Left atrium: The atrium is mildly dilated. - Right ventricle: Systolic function is normal. - Pulmonary arteries: Systolic pressure was moderately increased, estimated to be 50mm Hg. - Inferior vena cava: The IVC is dilated. Cardiac Anatomy Left ventricle: - The cavity size is normal. There is mild focal basal hypertrophy. There is hypertrophy of the septum. Systolic function is normal. The estimated ejection fraction is 60-65%. Wall motion is normal; there are no regional wall motion abnormalities. Aorta: Aortic root: The root is normal in size. Aortic valve: - Poorly visualized. A bioprosthetic valve is present. Velocity is within the normal range. There is no stenosis. There is mild regurgitation. The mean systolic gradient is 6mm Hg. The peak systolic gradient is 9mm Hg. The LVOT to aortic valve VTI ratio is 0.93. The ratio of LVOT to aortic valve peak velocity is 0.77. The ratio of LVOT to aortic valve mean velocity is 0.74. Mitral valve: - The valve is structurally normal. Mobility is not restricted. Inflow velocity is within the normal range. There is no evidence for stenosis. There is mild regurgitation. The peak diastolic gradient is 6mm Hg. Left atrium: The atrium is mildly dilated. Pulmonary artery: - Systolic pressure was moderately increased, estimated to be 50mm Hg. Right ventricle: - The cavity size is normal. Systolic function is normal. Pulmonic valve: - Poorly visualized. Velocity is within the normal range. There is no evidence for stenosis. There is no regurgitation. The mean systolic gradient is 3mm Hg. The peak systolic gradient is 4mm Hg. Tricuspid valve: - The valve is structurally normal. Inflow velocity is within the normal range. There is trivial regurgitation. Right atrium: The atrium is normal in size. Pericardium: - There is no pericardial effusion. Systemic veins: Inferior vena cava: The IVC is dilated. Respirophasic diameter changes are blunted (< 50%), consistent with elevated central venous pressure. Measurements Left ventricle Value Ref STAN, LAX (N) 3.8 cm 3.8 - 5.2 ESD, LAX (H) 3.6 cm 2.2 - 3.5 STAN/bsa, LAX (N) 2.3 cm/m^2 2.3 - 3.1 ESD/bsa, LAX (H) 2.2 cm/m^2 1.3 - 2.1 FS, LAX (L) 7 % 27 - 45 FS, LAX chord (L) 7 % 27 - 45 IVS, ED (H) 1.3 cm 0.6 - 0.9 ESD (H) 3.6 cm 2.2 - 3.5 ESD/bsa (H) 2.2 cm/m^2 1.3 - 2.1 FS (L) 7 % 27 - 45 PW, ED (H) 1.1 cm 0.6 - 0.9 IVS/PW, ED 1.2 --------- EDV (N) 64 ml 46 - 106 ESV (H) 53 ml 14 - 42 EF (L) 16 % 54 - 74 SV 53 ml --------- EDV/bsa (N) 38 ml/m^2 29 - 61 ESV/bsa (H) 32 ml/m^2 8 - 24 SV/bsa 32 ml/m^2 --------- SV, 1-p A2C 10 ml --------- SV/bsa, 1-p A2C 6.3 ml/m^2 --------- E', lat xiao, TDI (L) 4.8 cm/sec >=10.0 E/e', lat xiao, TDI (H) 27 <=13 E', med xiao, TDI (L) 6.1 cm/sec >=7.0 E/e', med xiao, TDI 21 --------- E', avg, TDI 5.5 cm/sec --------- E/e', avg, TDI (H) 23 <=14 LVOT Value Ref Peak dhara, S 1.17 m/sec --------- Mean dhara, S 0.91 m/sec --------- Peak grad, S 6 mm Hg --------- Mean grad, S 2 mm Hg --------- Right ventricle Value Ref TAPSE, MM (N) 2.3 cm >=1.7 RVOT Value Ref Peak v, S 0.73 m/sec --------- Mean v, S 0.51 m/sec --------- Peak grad, S 2 mm Hg --------- Mean grad, S 1 mm Hg --------- Left atrium Value Ref LA ID 3.8 cm --------- SI dim, A4C 4.9 cm --------- Area ES, A4C (N) 14 cm^2 <=20 Area/bsa ES, A4C 8.7 cm^2/m^2 --------- Vol, S (N) 43 ml 22 - 52 Vol/bsa, S (N) 26 ml/m^2 16 - 34 Vol, ES, 1-p A4C (N) 34 ml 22 - 52 Vol/bsa, ES, 1-p A4C (N) 20 ml/m^2 11 - 40 Vol, ES, 1-p A2C (H) 54 ml 22 - 52 Vol/bsa, ES, 1-p A2C (N) 32 ml/m^2 13 - 40 Vol, ES, 2-p 43 ml --------- Vol/bsa, ES, 2-p (N) 26 ml/m^2 16 - 34 Right atrium Value Ref Area, ES, A4C (N) 13 cm^2 10 - 18 Aortic valve Value Ref Peak v, S 1.5 m/sec --------- Mean v, S 1.22 m/sec --------- Mean grad, S 6 mm Hg --------- Peak grad, S 9 mm Hg --------- LVOT/AV, VTI ratio 0.93 --------- LVOT/AV, Vpeak ratio 0.77 --------- LVOT/AV, Vmean ratio 0.74 --------- Mitral valve Value Ref Peak E 1.27 m/sec --------- Peak A 1.14 m/sec --------- Decel slope 460.36 cm/s^2 --------- Decel time 275 ms --------- Peak grad, D 6 mm Hg --------- Peak E/A ratio 1.11 --------- Pulmonic valve Value Ref Peak v, S 1.1 m/sec --------- Mean dhara, S 0.77 m/sec --------- Mean grad, S 3 mm Hg --------- Peak grad, S 4 mm Hg --------- Inferior vena cava Value Ref Diam (H) 2.4 cm <=2.1 Legend: (L) and (H) kim values outside specified reference range. (N) gerard values inside specified reference range. Reviewed and confirmed by Indra Mariscal [id number] Procedure Note Rosendo Mariscal MD - 08/16/2025 * [facility]* [address] [place] [id number] Transthoracic Echocardiogram Patient: Nellie Alves Room: 6354 Height: 60in MR Number: [id number] : 1965 Weight: 151lb Account: [id number] Gender: F BP: 100 / 68 Study Date: 08/16/2025 Age: 59 BSA: 1.66m^2 Referring physician: Chato Boone Interpreting physician: Indra Mariscal PERFORMING Indra Mariscal ROOM CLERK Christianne Becker ORDERING Chato Boone REFERRING Chato Boone ATTENDING Liza Forrest MD ADMITTING Liza Forrest MD Procedure:TRANSTHORACIC ECHO (TTE) Order: Accession COMPLETE Number:[id number] Indications: Valve disorders/disease -aortic stenosis (I35.0). PMH: Chronic obstructive pulmonary disease. Risk factors: The patientis a current tobacco user. History of s/p TAVR (2022), CAD s/p multiple PCIs. Study data: Height: 60in. 152.4cm. Weight: 151lb. 68.5kg. The previous study was not available, so comparison was made to the report of04/16/2023. Study status: Routine. Objective: Diagnostic evaluation. Procedure:A transthoracic echocardiogram was performed. Image quality was fair.Scanning was performed from the parasternal, apical, subcostal, and suprasternal notch acoustic windows. Transthoracic echocardiogram. M-mode, complete 2D, complete spectral Doppler, color Doppler, and tissueDoppler. Birthdate: Patient birthdate: 1965. Age: Patient is 59year(s)old. Sex: gender: female. Body mass index: BMI: 29.5kg/m^2. Body surface area: BSA: 1.66m^2. Blood pressure: 100/68 Patientstatus: Inpatient. Study date: Study date: 08/16/2025. Study time: 03:42 PM. Location: Echo laboratory. Study Conclusions - Left ventricle: The cavity size is normal. There is mild focal basal hypertrophy. There is hypertrophy of the septum. Systolic function is normal. The estimated ejection fraction is 60-65%. Wall motion isnormal; there are no regional wall motion abnormalities. - Aortic valve: A bioprosthetic valve is present. There is mild regurgitation. The mean systolic gradient is 6mm Hg. - Mitral valve: There is mild regurgitation. - Left atrium: The atrium is mildly dilated. - Right ventricle: Systolic function is normal. - Pulmonary arteries: Systolic pressure was moderately increased,estimated to be 50mm Hg. - Inferior vena cava: The IVC is dilated. Cardiac Anatomy Left ventricle: - The cavity size is normal. There is mild focal basal hypertrophy. Thereis hypertrophy of the septum. Systolic function is normal. The estimated ejection fraction is 60-65%. Wall motion is normal; there are noregional wall motion abnormalities. Aorta: Aortic root: The root is normal in size. Aortic valve: - Poorly visualized. A bioprosthetic valve is present. Velocity iswithin the normal range. There is no stenosis. There is mild regurgitation.The mean systolic gradient is 6mm Hg. The peak systolic gradient is 9mmHg. The LVOT to aortic valve VTI ratio is 0.93. The ratio of LVOT toaortic valve peak velocity is 0.77. The ratio of LVOT to aortic valve mean velocity is 0.74. Mitral valve: - The valve is structurally normal. Mobility is not restricted. Inflow velocity is within the normal range. There is no evidence forstenosis. There is mild regurgitation. The peak diastolic gradient is 6mm Hg. Left atrium: The atrium is mildly dilated. Pulmonary artery: - Systolic pressure was moderately increased, estimated to be 50mm Hg. Right ventricle: - The cavity size is normal. Systolic function is normal. Pulmonic valve: - Poorly visualized. Velocity is within the normal range. There is no evidence for stenosis. There is no regurgitation. The mean systolic gradient is 3mm Hg. The peak systolic gradient is 4mm Hg. Tricuspid valve: - The valve is structurally normal. Inflow velocity is within the normal range. There is trivial regurgitation. Right atrium: The atrium is normal in size. Pericardium: - There is no pericardial effusion. Systemic veins: Inferior vena cava: The IVC is dilated. Respirophasic diameter changesare blunted (< 50%), consistent with elevated central venous pressure. Measurements Left ventricle Value Ref STAN, LAX (N) 3.8 cm 3.8 - 5.2 ESD, LAX (H) 3.6 cm 2.2 - 3.5 STAN/bsa, LAX (N) 2.3 cm/m^2 2.3 - 3.1 ESD/bsa, LAX (H) 2.2 cm/m^2 1.3 - 2.1 FS, LAX (L) 7 % 27 - 45 FS, LAX chord (L) 7 % 27 - 45 IVS, ED (H) 1.3 cm 0.6 - 0.9 ESD (H) 3.6 cm 2.2 - 3.5 ESD/bsa (H) 2.2 cm/m^2 1.3 - 2.1 FS (L) 7 % 27 - 45 PW, ED (H) 1.1 cm 0.6 - 0.9 IVS/PW, ED 1.2 --------- EDV (N) 64 ml 46 - 106 ESV (H) 53 ml 14 - 42 EF (L) 16 % 54 - 74 SV 53 ml --------- EDV/bsa (N) 38 ml/m^2 29 - 61 ESV/bsa (H) 32 ml/m^2 8 - 24 SV/bsa 32 ml/m^2 --------- SV, 1-p A2C 10 ml --------- SV/bsa, 1-p A2C 6.3 ml/m^2 --------- E', lat xiao, TDI (L) 4.8 cm/sec >=10.0 E/e', lat xiao, TDI (H) 27 <=13 E', med xiao, TDI (L) 6.1 cm/sec >=7.0 E/e', med xiao, TDI 21 --------- E', avg, TDI 5.5 cm/sec --------- E/e', avg, TDI (H) 23 <=14 LVOT Value Ref Peak dhara, S 1.17 m/sec --------- Mean dhara, S 0.91 m/sec --------- Peak grad, S 6 mm Hg --------- Mean grad, S 2 mm Hg --------- Right ventricle Value Ref TAPSE, MM (N) 2.3 cm >=1.7 RVOT Value Ref Peak v, S 0.73 m/sec --------- Mean v, S 0.51 m/sec --------- Peak grad, S 2 mm Hg --------- Mean grad, S 1 mm Hg --------- Left atrium Value Ref LA ID 3.8 cm --------- SI dim, A4C 4.9 cm --------- Area ES, A4C (N) 14 cm^2 <=20 Area/bsa ES, A4C 8.7 cm^2/m^2 --------- Vol, S (N) 43 ml 22 - 52 Vol/bsa, S (N) 26 ml/m^2 16 - 34 Vol, ES, 1-p A4C (N) 34 ml 22 - 52 Vol/bsa, ES, 1-p A4C (N) 20 ml/m^2 11 - 40 Vol, ES, 1-p A2C (H) 54 ml 22 - 52 Vol/bsa, ES, 1-p A2C (N) 32 ml/m^2 13 - 40 Vol, ES, 2-p 43 ml --------- Vol/bsa, ES, 2-p (N) 26 ml/m^2 16 - 34 Right atrium Value Ref Area, ES, A4C (N) 13 cm^2 10 - 18 Aortic valve Value Ref Peak v, S 1.5 m/sec --------- Mean v, S 1.22 m/sec --------- Mean grad, S 6 mm Hg --------- Peak grad, S 9 mm Hg --------- LVOT/AV, VTI ratio 0.93 --------- LVOT/AV, Vpeak ratio 0.77 --------- LVOT/AV, Vmean ratio 0.74 --------- Mitral valve Value Ref Peak E 1.27 m/sec --------- Peak A 1.14 m/sec --------- Decel slope 460.36 cm/s^2 --------- Decel time 275 ms --------- Peak grad, D 6 mm Hg --------- Peak E/A ratio 1.11 --------- Pulmonic valve Value Ref Peak v, S 1.1 m/sec --------- Mean dhara, S 0.77 m/sec --------- Mean grad, S 3 mm Hg --------- Peak grad, S 4 mm Hg --------- Inferior vena cava Value Ref Diam (H) 2.4 cm <=2.1 Legend: (L) and (H) kim values outside specified reference range. (N) gerard values inside specified reference range. Reviewed and confirmed by Indra Mariscal [id number] us Chato Boone MD CV ECHO ORDERABLES Final Result * C-Reactive Protein (08/16/2025 10:53 AM EST) Pathologist [facility] CRP 3.2 1.0 - 10.0 mg/L 08/16/2025 12:58 PM EST [facility] Plasma 08/16/2025 10:5 3 AM EST 08/16/2025 12:16 PM EST Chely Andrews DO LAB BLOOD ORDERABLES Final Result [facility] [address] [facility]. [address] * Sed Rate (08/16/2025 10:53 AM EST) Sed Rate 16 0 - 30 mm/hr 08/16/2025 12:39 PM EST [facility] Whole Blood 08/16/2025 10:5 3 AM EST 08/16/2025 12:16 PM EST Chely Andrews DO LAB BLOOD ORDERABLES Final Result Performing Organization Address [facility]/ZIP Co de Phone Number [facility] [address] [facility]. [address] * Influenza A and B, COVID, RSV Combination Assay, MARIELENA (08/16/2025 10:02 AM EST) Influenza A Negative Negative 08/16/2025 11:43 AM EST [facility] Influenza B Negative Negative 08/16/2025 11:43 AM EST [facility] RSV Negative Negative 08/16/2025 11:43 AM EST [facility] SARS-CoV-2 Negative Negative,Not Detected 08/16/2025 11:43 AM EST [facility] Comment:This is an FDA-appro justine amplified nucleic acid assay performed by real- time PCR. Nasopharyngeal Swab NASOPHARYNGEAL STRUCTURE / Unknown 08/16/2025 10:02 AM EST 08/16/2025 10:56 AM EST Chely Andrews DO BODY FLUIDS AND STOOL S ORDERABLES Final Result Performing Organization Address City/[facility]/ZIP Co de Phone Number [facility] [address] [facility]. [address] * FALGUNI Rhythm Strip - Scan (08/16/2025 9:40 AM EST) us Scanning Uchhim SCAN DOCS - NO RESULTS Final Res ult * (ABNORMAL) B Natriuretic Peptide (08/16/2025 6:58 AM EST) BNP 475(H) 0 - 100 pg/mL 08/16/2025 8:54 AM EST [facility] Comment: BNP may be increased in the presence of sacubitril/valsartan (Entresto). Please interpret accordingly. Plasma 08/16/2025 6:58 AM EST 08/16/2025 7:20 AM EST Narrative [facility] - 08/16/2025 8:54 AM EST The presence of high concentrations of biotin may cause falsely lowered BNP results. Biotin interference may be seen if an individual is taking >5 mg biotin per day. Interpret BNP results in the context of the patient's clinical presentation. Liza Forrest MD LAB BLOOD ORDERABLES Final Re sult [facility] [address] [facility] * aPTT-Heparin (08/16/2025 6:58 AM EST) Pathologist [facility] hPTT 100.0 90.0 - 120.0 seconds 08/16/2025 7:51 AM EST [facility] Plasma 08/16/2025 6:58 AM EST 08/16/2025 7:20 AM EST Liza Forrest MD LAB BLOOD ORDERABLES Final Re sult [facility] [address] [facility]. [address] * Lactic Acid (08/16/2025 6:58 AM EST) Pathologist [facility] Lactate 0.8 0.5 - 2.2 mmol/L 08/16/2025 7:53 AM EST [facility] Plasma 08/16/2025 6:58 AM EST 08/16/2025 7:20 AM EST Chato Boone MD LAB BLOOD ORDERABLES Giuliana morgan Result [facility] [address] [place] [address] * (ABNORMAL) Renal Function Panel w/EGFR (08/16/2025 6:58 AM EST) Sodium 139 133 - 146 mmol/L 08/16/2025 7:55 AM EST [facility] Potassium 3.7 3.5 - 5.3 mmol/L 08/16/2025 7:55 AM [facility] Chloride 101 98 - 110 mmol/L 08/16/2025 7:55 AM [facility] CO2 31 21 - 33 mmol/L 08/16/2025 7:55 AM EST [facility] Comment:High lactate dehydro genase concentrations in patient samples may cause falsely increased bicarbonate results. If markedly elevated LDH is observed or suspected, please assess results in conjunction with patient`s clinical presentation. In cases of discrepant results, consider evaluating CO2 in with a blood gas order. Anion Gap 7 3 - 16 mmol/L 08/16/2025 7:55 AM EST [facility] BUN 6(L) 7 - 25 mg/dL 08/16/2025 7:55 AM [facility] Creatinine 0.32(L) 0.60 - 1.30 mg/dL 08/16/2025 7:55 AM [facility] Glucose 101(H) 70 - 100 mg/dL 08/16/2025 7:55 AM [facility] Calcium 8.4(L) 8.6 - 10.3 mg/dL 08/16/2025 7:55 AM [facility] Phosphorus 3.1 2.1 - 4.7 mg/dL 08/16/2025 7:55 AM [facility] Albumin 3.5 3.5 - 5.7 g/dL 08/16/2025 7:55 AM [facility] Osmolality, Calculated 286 278 - 305 mOsm/kg 08/16/2025 7:55 AM EST [facility] EGFR >90 08/16/2025 7:55 AM EST [facility] Comment: As of 2021, the estimated GFR is calculated using the 2020 Chronic Kidney Disease Epidemiology Collaboration (CKD-EPI) equation. In line with the NKF-ASN Task Force Recommendations, this equation does not include a coefficient for race. A single eGFR value is calculated for each patient. The reference interval is >60 mL/min/1.73m2. eGFR values greater than 90 will be reported as >90mL/min/1.73m2. Reference: Kahlil C, Niru M, Govind DC, Ector ND, Anyi [place], Jonah [place], et al. A Unifying Approach for GFR Estimation: Recommendations of the NKF-ASN Task Force on Reassessing the inclusion of Race in Diagnosing Kidney Disease. Am J Kidney Dis. 2020. GFR is estimated using creatinine, age, and sex. Patient's values should be interpreted as a trend. Below 90 mL/min/1.73m2, the patient may have renal disease. For additional information: www.kidney.org Plasma 08/16/2025 6:58 AM EST 08/16/2025 7:20 AM EST Chato Boone MD LAB BLOOD ORDERABLES Giuliana l Result Performing Organization Address City/[facility]/ZIP Co de Phone Number [facility] [address] * Magnesium (08/16/2025 6:58 AM EST) Magnesium 2.2 1.5 - 2.5 mg/dL 08/16/2025 7:55 AM EST [facility] Plasma 08/16/2025 6:58 AM EST 08/16/2025 7:20 AM EST Chato Boone MD LAB BLOOD ORDERABLES Giuliana l Result Performing Organization Address City/[facility] Co de Phone Number [facility] [address] * (ABNORMAL) CBC (08/16/2025 6:58 AM EST) WBC 13.7(H) 3.8 - 10.8 10E3/uL 08/16/2025 7:38 AM EST [facility] RBC 4.89 3.80 - 5.10 10E6/uL 08/16/2025 7:38 AM EST [facility] Hemoglobin 15.2 11.7 - 15.5 g/dL 08/16/2025 7:38 AM EST [facility] Hematocrit 44.6 35.0 - 45.0 % 08/16/2025 7:38 AM EST [facility] MCV 91.1 80.0 - 100.0 fL 08/16/2025 7:38 AM EST [facility] MCH 31.2 27.0 - 33.0 pg 08/16/2025 7:38 AM EST [facility] MCHC 34.2 32.0 - 36.0 g/dL 08/16/2025 7:38 AM EST [facility] RDW 14.0 11.0 - 15.0 % 08/16/2025 7:38 AM EST [facility] Platelets 148 140 - 400 10E3/uL 08/16/2025 7:38 AM EST [facility] Comment:Specimen checked for clots. None detected. MPV 8.0 7.5 - 11.5 fL 08/16/2025 7:38 AM EST [facility] Whole Blood 08/16/2025 6:58 AM EST 08/16/2025 7:20 AM EST us Chato Boone MD LAB BLOOD ORDERABLES Giuliana l Result [facility] [address] * FALGUNI Rhythm Strip - Scan (08/16/2025 3:17 AM EST) us Scanning Uchhim SCAN DOCS - NO RESULTS Final Res ult * aPTT-Heparin (08/16/2025 12:27 AM EST) hPTT 116.7 90.0 - 120.0 seconds 08/16/2025 1:00 AM EST [facility] Plasma 08/16/2025 12:2 7 AM EST 08/16/2025 12:36 AM EST Liza Forrest MD LAB BLOOD ORDERABLES Final Re sult [facility] [address] [place] [address]. [address] * Blood culture-Peripheral (Blood) (08/15/2025 8:02 PM EST) Culture Result No Growth After 5 Days [facility] Blood BLOOD SPECIMEN / Unknown 08/15/2025 8:02 PM EST 08/15/2025 8:23 PM EST Narrative [facility] - 08/20/2025 8:33 PM EST Suboptimal volume of blood received. Interpret results with caution. Chato Boone MD MICROBIOLOGY - GENERAL OR DERABLES Final Result Performing Organization Address City/[facility]/ZIP Co de Phone Number [facility] [address] * Blood culture-Peripheral (Blood) (08/15/2025 8:02 PM EST) Culture Result No Growth After 5 Days [facility] Blood BLOOD SPECIMEN / Unknown 08/15/2025 8:02 PM EST 08/15/2025 8:23 PM EST Narrative [facility] - 08/20/2025 8:35 PM EST Suboptimal volume of blood received. Interpret results with caution. Chato Boone MD MICROBIOLOGY - GENERAL OR DERABLES Final Result [facility] [address] [facility] * (ABNORMAL) Urinalysis - Macroscopic w/ Reflex to Microscopic (08/15/2025 6:42 PM EST) Color, UA Straw Yellow,Straw 08/15/2025 7:03 PM EST [facility] Clarity, UA Clear Clear 08/15/2025 7:03 PM EST [facility] Specific [place], UA >1.035(H) 1.005 - 1.035 08/15/2025 7:03 PM EST [facility] pH, UA 6.5 5.0 - 8.0 08/15/2025 7:03 PM EST [facility] Protein, UA Negative Negative mg/dL 08/15/2025 7:03 PM EST [facility] Glucose, UA Negative Negative mg/dL 08/15/2025 7:03 PM [facility] Ketones, UA Negative Negative mg/dL 08/15/2025 7:03 PM EST [facility] Bilirubin, UA Negative Negative 08/15/2025 7:03 PM EST [facility] Blood, UA Negative Negative 08/15/2025 7:03 PM EST [facility] Nitrite, UA Negative Negative 08/15/2025 7:03 PM EST [facility] Urobilinogen, UA <2.0 0.2 - 1.9 mg/dL 08/15/2025 7:03 PM [facility] Leukocyte Esterase, UA Negative Negative 08/15/2025 7:03 PM EST [facility] Urine 08/15/2025 6:42 PM EST 08/15/2025 6:54 PM EST Narrative [facility] - 08/15/2025 7:03 PM EST Microscopic testing is not performed when the dipstick is negative for blood, leukocyte, protein and nitrite. Luis Alfredo Dodd MD URINE ORDERABLES Final Result [facility] [address] [place] [address], [facility] * (ABNORMAL) Lactic acid, venous whole blood (08/15/2025 6:28 PM EST) Lactate, Endy 2.5(H) 0.5 - 1.6 mmol/L 08/15/2025 6:35 PM EST [facility] Blood, Venous 08/15/2025 6:2 8 PM EST 08/15/2025 6:32 PM EST Luis Alfredo Dodd MD LAB BLOOD ORDERABLES Final Resul t [facility] [address] * (ABNORMAL) High Sensitivity Troponin (08/15/2025 6:28 PM EST) Pathologist [facility] High Sensitivity Troponin 17(H) 0 - 14 ng/L 08/15/2025 7:07 PM EST [facility] Serum 08/15/2025 6:28 PM EST 08/15/2025 6:32 PM EST Luis Alfredo Dodd MD LAB BLOOD ORDERABLES Final Resul t Performing Organization Address City/[facility]/ZIP Co de Phone Number [facility] [address] * (ABNORMAL) CBC (08/15/2025 6:28 PM EST) Pathologist [facility] WBC 5.4 3.8 - 10.8 10E3/uL 08/15/2025 6:46 PM EST [facility] RBC 5.11(H) 3.80 - 5.10 10E6/uL 08/15/2025 6:46 PM EST [facility] Hemoglobin 16.3(H) 11.7 - 15.5 g/dL 08/15/2025 6:46 PM EST [facility] Hematocrit 46.8(H) 35.0 - 45.0 % 08/15/2025 6:46 PM EST [facility] MCV 91.6 80.0 - 100.0 fL 08/15/2025 6:46 PM EST [facility] MCH 31.9 27.0 - 33.0 pg 08/15/2025 6:46 PM EST [facility] MCHC 34.9 32.0 - 36.0 g/dL 08/15/2025 6:46 PM EST [facility] RDW 14.3 11.0 - 15.0 % 08/15/2025 6:46 PM EST [facility] Platelets 156 140 - 400 10E3/uL 08/15/2025 6:46 PM EST [facility] MPV 7.4(L) 7.5 - 11.5 fL 08/15/2025 6:46 PM EST [facility] Whole Blood 08/15/2025 6:28 PM EST 08/15/2025 6:37 PM EST Luis Alfredo Dodd MD LAB BLOOD ORDERABLES Final Resul t Performing Organization Address City/[facility]/ZIP Co de Phone Number [facility] [address] [facility] * APTT, No Anticoagulant (08/15/2025 6:28 PM EST) aPTT 26.0 25.5 - 35.0 seconds 08/15/2025 6:49 PM EST [facility] Plasma 08/15/2025 6:28 PM EST 08/15/2025 6:37 PM EST Luis Alfredo Dodd MD LAB BLOOD ORDERABLES Final Resul t Performing Organization Address [facility] Co de Phone Number [facility] [address] [facility]. [address] * Protime-INR (08/15/2025 6:28 PM EST) Protime 13.3 12.1 - 15.1 seconds 08/15/2025 6:48 PM EST [facility] INR 1.0 0.9 - 1.1 08/15/2025 6:48 PM EST [facility] Comment: RECOMMENDED THERAPEUTIC RANGES USING INR : Stable oral anticoagulant therapy: 2.0 - 3.0 Mechanical prosthetic heart valve: 2.5 - 3.5 Recurrent acute myocardial infarction: 2.5 - 3.5 Plasma 08/15/2025 6:28 PM EST 08/15/2025 6:37 PM EST Luis Alfredo Dodd MD LAB BLOOD ORDERABLES Final Resul t Performing Organization Address City/[facility]/ZIP Co de Phone Number [facility] [address] [place] * CT Angio Abd-Pelvis W and or WO IV Contrast (08/15/2025 4:30 PM EST) Anatomical Region Laterality Modality Abdomen, Pelvis Computed Tomogra phy 08/15/2025 4:21 PM EST Impressions 08/15/2025 7:39 PM EST IMPRESSION: 1. No evidence of aortic dissection or aneurysm in the abdomen or pelvis. 2. Small 7 mm hypodensity in the pancreatic head, likely side branch IPMN. Recommend follow-up CT in one year. Imaging Follow-up #[id number]#: Recommend CT of the Abdomen with contrast in 1 year. Approved by Angelica Mcguire DO on 08/15/2025 7:33 PM EST I have personally reviewed the images and I agree with this report. Report Verified by: Mynor Genao MD at 08/15/2025 7:39 PM EST Narrative 08/15/2025 7:39 PM EST EXAM: CT ANGIO ABDOMEN AND PELVIS W AND OR WO IV CONTRAST INDICATION: Evaluation for aortic dissection TECHNIQUE: CT angiography of the abdomen and pelvis was performed. Axial images were obtained with coronal and sagittal reconstructions. 3-D reconstructions and maximum intensity projection images were performed on a separate workstation. CONTRAST: 125 mL of IOHEXOL 350 MG IODINE/ML INTRAVENOUS SOLUTION administered intravenously FIELD OF VIEW: 36 cm COMPARISON: None available. FINDINGS: Lower chest: Reported separately. Liver: Hepatic steatosis. No focal lesions. Biliary tree:No biliary ductal dilation. Cholelithiasis. Spleen: Normal Pancreas: Small 7 mm hypodensity in the pancreatic head (series 308 image [id number]), likely side branch IPMN. Adrenal glands: Normal Kidneys/Ureters/Bladder: Normal size without hydronephrosis. No stones. No mass lesions. Normal appearance of the urinary bladder. Gastrointestinal tract: Normal caliber and wall thickness. Normal appendix. Mild colonic diverticulosis. Lymphatics: No lymphadenopathy. Vasculature: Moderate atherosclerosis of aorta and its branches. No aneurysmal dilation or dissection. Peritoneum/Retroperitoneum: No free fluid, focal fluid collections or free air. Genital Organs: Normal Abdominal wall/Soft tissues: Normal Osseous structures: No acute osseous abnormalities or suspicious osseous lesions. Procedure Note Mynor Genao MD - 08/15/2025 EXAM: CT ANGIO ABDOMEN AND PELVIS W AND OR WO IV CONTRAST INDICATION: Evaluation for aortic dissection TECHNIQUE: CT angiography of the abdomen and pelvis was performed. Axialimages were obtained with coronal and sagittal reconstructions. 3-Dreconstructions and maximum intensity projection images were performed anamika separate workstation. CONTRAST: 125 mL of IOHEXOL 350 MG IODINE/ML INTRAVENOUS SOLUTIONadministered intravenously FIELD OF VIEW: 36 cm COMPARISON: None available. FINDINGS: Lower chest: Reported separately. Liver: Hepatic steatosis. No focal lesions. Biliary tree:No biliary ductal dilation. Cholelithiasis. Spleen: Normal Pancreas: Small 7 mm hypodensity in the pancreatic head (series [id number] [id number]), likely side branch IPMN. Adrenal glands: Normal Kidneys/Ureters/Bladder: Normal size without hydronephrosis. No stones.No mass lesions. Normal appearance of the urinary bladder. Gastrointestinal tract: Normal caliber and wall thickness. Normalappendix. Mild colonic diverticulosis. Lymphatics: No lymphadenopathy. Vasculature: Moderate atherosclerosis of aorta and its branches. Noaneurysmal dilation or dissection. Peritoneum/Retroperitoneum: No free fluid, focal fluid collections or freeair. Genital Organs: Normal Abdominal wall/Soft tissues: Normal Osseous structures: No acute osseous abnormalities or suspicious osseouslesions. IMPRESSION: 1. No evidence of aortic dissection or aneurysm in the abdomen orpelvis. 2. Small 7 mm hypodensity in the pancreatic head, likely side branchIPMN. Recommend follow-up CT in one year. Imaging Follow-up #[id number]#: Recommend CT of the Abdomen with contrast in 1year. Approved by Angelica Mcguire DO on 08/15/2025 7:33 PM EST I have personally reviewed the images and I agree with this report. Report Verified by: Mynor Genao MD at 08/15/2025 7:39 PM EST us Amaris Mary MD IM CT ORDERABLES Giuliana moragn Result * CT Angio Chest W and or WO (08/15/2025 4:30 PM EST) Anatomical Region Laterality Modality Chest, Vascular Computed Tomogra phy 08/15/2025 4:21 PM EST Impressions 08/15/2025 5:16 PM EST IMPRESSION: 1. Status post TAVR with a small intrastent filling defect along the valve leaflet, favored represent a small thrombus. 2. No evidence of aortic dissection. 3. Additional ancillary findings as above. CRITICAL RESULT: These findings were discussed with Dr. Sergio Infante on 08/15/2025 5:10 PM EST by telephone. They confirmed that they understood the findings communicated to them. #[id number]# Report Verified by: Alberto Hathaway MD at 08/15/2025 5:16 PM EST Narrative 08/15/2025 5:16 PM EST EXAM: CT ANGIO CHEST W AND OR WO CONTRAST INDICATION: evaluation for dissection COMPARISON: None. TECHNIQUE: Noncontrast CT of the chest was performed. Subsequently, ECG-gated CT angiography of the chest was performed according to the aortic dissection protocol. MPR, MIP and volume rendered reconstructions were performed at a separate 3-D workstation. CAD software was utilized. CONTRAST: 125 mL of IOHEXOL 350 MG IODINE/ML INTRAVENOUS SOLUTION administered intravenously FINDINGS: MEDICAL DEVICES: TAVR. AIRWAYS & LUNGS: The central airways are patent. Mild upper zone predominant emphysema with diffuse bronchial wall thickening, a few scattered areas of peripheral mucus plugging and ill-defined upper zone predominant centrilobular groundglass opacities, likely smoking related respiratory bronchiolitis. Sequela of healed granulomatous disease and multifocal areas of parenchymal scarring and/or atelectasis. PLEURA: No pleural effusions or pneumothorax. LOWER NECK: Unremarkable. HEART: The heart is normal in size. Koi coronary artery atherosclerotic disease with evidence of prior stenting. THORACIC AORTA: Status post TAVR with a small intrastent filling defect seen along the non coronary cusp valve leaflet measuring roughly 1.1 x 0.7 cm. Coronary artery origins: Normal Branch pattern: Left-sided aortic arch with a common trunk of the left common carotid and right brachiocephalic arteries, a normal variant. Atherosclerotic disease: Minimal disease Intramural hematoma: No Dissection: No Penetrating atherosclerotic ulcer: No Size: Ectatic ascending thoracic aorta measuring up to 4.0 cm. ADDITIONAL VASCULAR STRUCTURES: Unremarkable. MEDIASTINUM AND DELIA: A few borderline mediastinal and hilar lymph nodes, likely reactive. CHEST WALL AND AXILLA: Unremarkable. UPPER ABDOMEN: Reported separately. OSSEOUS STRUCTURES: No suspicious osseous lesion or acute osseous abnormality. Procedure Note Alberto Hathaway MD - 08/15/2025 EXAM: CT ANGIO CHEST W AND OR WO CONTRAST INDICATION: evaluation for dissection COMPARISON: None. TECHNIQUE: Noncontrast CT of the chest was performed. Subsequently,ECG-gated CT angiography of the chest was performed according to theaortic dissection protocol. MPR, MIP and volume rendered reconstructionswere performed at a separate 3-D workstation. CAD software was utilized. CONTRAST: 125 mL of IOHEXOL 350 MG IODINE/ML INTRAVENOUS SOLUTIONadministered intravenously FINDINGS: MEDICAL DEVICES: TAVR. AIRWAYS & LUNGS: The central airways are patent. Mild upper zonepredominant emphysema with diffuse bronchial wall thickening, a fewscattered areas of peripheral mucus plugging and ill-defined upper zonepredominant centrilobular groundglass opacities, likely smoking relatedrespiratory bronchiolitis. Sequela of healed granulomatous disease andmultifocal areas of parenchymal scarring and/or atelectasis. PLEURA: No pleural effusions or pneumothorax. LOWER NECK: Unremarkable. HEART: The heart is normal in size. Koi coronary artery atheroscleroticdisease with evidence of prior stenting. THORACIC AORTA: Status post TAVR with a small intrastent filling defect seen along the noncoronary cusp valve leaflet measuring roughly 1.1 x 0.7 cm. Coronary artery origins: Normal Branch pattern: Left-sided aortic arch with a common trunk of the leftcommon carotid and right brachiocephalic arteries, a normal variant. Atherosclerotic disease: Minimal disease Intramural hematoma: No Dissection: No Penetrating atherosclerotic ulcer: No Size: Ectatic ascending thoracic aorta measuring up to 4.0 cm. ADDITIONAL VASCULAR STRUCTURES: Unremarkable. MEDIASTINUM AND DELIA: A few borderline mediastinal and hilar lymph nodes,likely reactive. CHEST WALL AND AXILLA: Unremarkable. UPPER ABDOMEN: Reported separately. OSSEOUS STRUCTURES: No suspicious osseous lesion or acute osseousabnormality. IMPRESSION: 1. Status post TAVR with a small intrastent filling defect along thevalve leaflet, favored represent a small thrombus. 2. No evidence of aortic dissection. 3. Additional ancillary findings as above. CRITICAL RESULT: These findings were discussed with Dr. Sergio Infante on08/15/2025 5:10 PM EST by telephone. They confirmed that they understoodthe findings communicated to them. #[id number]# Report Verified by: Alberto Hathaway MD at 08/15/2025 5:16 PM EST Amaris Mary MD IMG CT ORDERABLES Giuliana l Result * PTT, No Anticoagulant (08/15/2025 4:21 PM EST) aPTT 27.1 25.5 - 35.0 seconds 08/15/2025 5:16 PM EST [facility] Plasma 08/15/2025 4:21 PM EST 08/15/2025 5:01 PM EST Luis Alfredo Dodd MD LAB BLOOD ORDERABLES Final Resul t [facility] [address] [facility]. [address] * INR - Protime (08/15/2025 4:21 PM EST) Protime 13.2 12.1 - 15.1 seconds 08/15/2025 5:16 PM EST [facility] INR 1.0 0.9 - 1.1 08/15/2025 5:16 PM EST [facility] Comment: RECOMMENDED THERAPEUTIC RANGES USING INR : Stable oral anticoagulant therapy: 2.0 - 3.0 Mechanical prosthetic heart valve: 2.5 - 3.5 Recurrent acute myocardial infarction: 2.5 - 3.5 Plasma 08/15/2025 4:21 PM EST 08/15/2025 5:01 PM EST Luis Alfredo Dodd MD LAB BLOOD ORDERABLES Final Resul t [facility] [address] [facility]. [address] * (ABNORMAL) Hepatic Function Panel (08/15/2025 4:21 PM EST) Total Bilirubin 0.6 0.0 - 1.5 mg/dL 08/15/2025 4:59 PM EST [facility] Bilirubin, Direct 0.1 0.0 - 0.4 mg/dL 08/15/2025 4:59 PM EST [facility] Comment:HEMOLYSIS EVIDENT. D IRECT BILIRUBIN CONCENTRATIONS MAY BE FALSELY DECREASED IN THE PRESENCE OF HEMOLYSIS. INTERPRET WITH CAUTION. AST 77(H) 13 - 39 U/L 08/15/2025 4:59 PM EST [facility] ALT 74(H) 7 - 52 U/L 08/15/2025 4:59 PM EST [facility] Alkaline Phosphatase 127(H) 36 - 125 U/L 08/15/2025 4:59 PM EST [facility] Total Protein 7.3 6.4 - 8.9 g/dL 08/15/2025 4:59 PM EST [facility] Albumin 3.6 3.5 - 5.7 g/dL 08/15/2025 4:59 PM EST [facility] Bilirubin, Indirect 0.5 0.0 - 1.1 mg/dL 08/15/2025 4:59 PM EST [facility] Plasma 08/15/2025 4:21 PM EST 08/15/2025 4:30 PM EST Luis Alfredo Dodd MD LAB BLOOD ORDERABLES Final Resul t [facility] [address] * (ABNORMAL) Lactic acid, venous, whole blood (08/15/2025 4:21 PM EST) [facility] Lactate, Endy 4.2(H) 0.5 - 1.6 mmol/L 08/15/2025 4:36 PM EST [facility] Blood, Venous 08/15/2025 4:2 1 PM EST 08/15/2025 4:30 PM EST Luis Alfredo Dodd MD LAB BLOOD ORDERABLES Final Resul t [facility] [address] * Antibody Screen (08/15/2025 4:21 PM EST) [facility] Antibody Screen Negative 08/15/2025 5:45 PM EST [facility] Blood 08/15/2025 4:21 PM EST 08/15/2025 5:05 PM EST Narrative [facility] - 08/15/2025 5:52 PM EST Testing performed by [facility] Transfusion Service Luis Alfredo Dodd MD BLOOD BANK TEST ORDERABLES Final Result [facility] [address] * ABO/Rh (08/15/2025 4:21 PM EST) ABO Grouping AB 08/15/2025 5:29 PM EST [facility] Rh Type Positive 08/15/2025 5:29 PM EST [facility] Blood 08/15/2025 4:2 1 PM EST 08/15/2025 5:05 PM EST Luis Alfredo Dodd MD BLOOD BANK TEST ORDERABLES Final Result Performing Organization Address City/[facility]/ZIP Co de Phone Number [facility] [address] [facility] * (ABNORMAL) High Sensitivity Troponin (08/15/2025 4:21 PM EST) High Sensitivity Troponin 19(H) 0 - 14 ng/L 08/15/2025 5:04 PM EST [facility] Serum 08/15/2025 4:21 PM EST 08/15/2025 4:30 PM EST Luis Alfredo Dodd MD LAB BLOOD ORDERABLES Final Resul t [facility] [address] [facility] * (ABNORMAL) Differential (08/15/2025 4:21 PM EST) Neutrophils Relative 91.4(H) 40.0 - 80.0 % 08/15/2025 5:15 PM EST [facility] Lymphocytes Relative 7.0(L) 15.0 - 45.0 % 08/15/2025 5:15 PM EST [facility] Monocytes Relative 1.0 0.0 - 12.0 % 08/15/2025 5:15 PM EST [facility] Eosinophils Relative 0.1 0.0 - 8.0 % 08/15/2025 5:15 PM EST [facility] Basophils Relative 0.5 0.0 - 1.0 % 08/15/2025 5:15 PM EST [facility] nRBC 0 0 - 0 /100 WBC 08/15/2025 5:15 PM EST [facility] Neutrophils Absolute 5,758 1,520 - 8,640 /uL 08/15/2025 5:15 PM EST [facility] Lymphocytes Absolute 441(L) 570 - 4,860 /uL 08/15/2025 5:15 PM EST [facility] Monocytes Absolute 63 0 - 1,296 /uL 08/15/2025 5:15 PM EST [facility] Eosinophils Absolute 6 0 - 864 /uL 08/15/2025 5:15 PM EST [facility] Basophils Absolute 32 0 - 108 /uL 08/15/2025 5:15 PM EST [facility] Whole Blood 08/15/2025 4:21 PM EST 08/15/2025 5:01 PM EST us Luis Alfredo Dodd MD LAB BLOOD ORDERABLES Final Resul t [facility] [address] [place] [address], [facility] * (ABNORMAL) CBC (08/15/2025 4:21 PM EST) WBC 6.3 3.8 - 10.8 10E3/uL 08/15/2025 5:15 PM EST [facility] RBC 5.32(H) 3.80 - 5.10 10E6/uL 08/15/2025 5:15 PM EST [facility] Hemoglobin 17.1(H) 11.7 - 15.5 g/dL 08/15/2025 5:15 PM EST [facility] Hematocrit 49.1(H) 35.0 - 45.0 % 08/15/2025 5:15 PM EST [facility] MCV 92.2 80.0 - 100.0 fL 08/15/2025 5:15 PM EST [facility] MCH 32.1 27.0 - 33.0 pg 08/15/2025 5:15 PM EST [facility] MCHC 34.8 32.0 - 36.0 g/dL 08/15/2025 5:15 PM EST [facility] RDW 14.0 11.0 - 15.0 % 08/15/2025 5:15 PM EST [facility] Platelets 156 140 - 400 10E3/uL 08/15/2025 5:15 PM EST [facility] MPV 7.7 7.5 - 11.5 fL 08/15/2025 5:15 PM EST [facility] Whole Blood 08/15/2025 4:21 PM EST 08/15/2025 5:01 PM EST Luis Alfredo Dodd MD LAB BLOOD ORDERABLES Final Resul t [facility] [address] [facility] * ED HCV Ab Reflex To HCV Quant (08/15/2025 4:21 PM EST) HCV Ab Nonreactive Nonreactive 08/15/2025 6:58 PM EST [facility] Comment:Health Department no tified in accordance with reportable infectious disease guidelines. HCVAB Number 0.03 0.00 - 0.79 S/CO 08/15/2025 6:58 PM EST [facility] Serum 08/15/2025 4:21 PM EST 08/15/2025 5:01 PM EST Luis Alfredo Dodd MD LAB BLOOD ORDERABLES Final Resul t [facility] [address] [facility]. [address] * (ABNORMAL) Basic metabolic panel (08/15/2025 4:21 PM EST) Sodium 132(L) 133 - 146 mmol/L 08/15/2025 4:59 PM EST [facility] Potassium 4.6 3.5 - 5.3 mmol/L 08/15/2025 4:59 PM EST [facility] Comment:Hemolysis Present: R esults may be influenced artificially. Recommend recollection as clinically indicated. Chloride 98 98 - 110 mmol/L 08/15/2025 4:59 PM EST [facility] CO2 20(L) 21 - 33 mmol/L 08/15/2025 4:59 PM EST [facility] Comment:High lactate dehydro genase concentrations in patient samples may cause falsely increased bicarbonate results. If markedly elevated LDH is observed or suspected, please assess results in conjunction with patient`s clinical presentation. In cases of discrepant results, consider evaluating CO2 in with a blood gas order. Anion Gap 14 3 - 16 mmol/L 08/15/2025 4:59 PM EST [facility] BUN 6(L) 7 - 25 mg/dL 08/15/2025 4:59 PM EST [facility] Creatinine 0.45(L) 0.60 - 1.30 mg/dL 08/15/2025 4:59 PM EST [facility] Glucose 198(H) 70 - 100 mg/dL 08/15/2025 4:59 PM EST [facility] Calcium 8.6 8.6 - 10.3 mg/dL 08/15/2025 4:59 PM [facility] Osmolality, Calculated 277(L) 278 - 305 mOsm/kg 08/15/2025 4:59 PM EST [facility] EGFR >90 08/15/2025 4:59 PM [facility] Comment: As of 2021, the estimated GFR is calculated using the 2020 Chronic Kidney Disease Epidemiology Collaboration (CKD-EPI) equation. In line with the NKF-ASN Task Force Recommendations, this equation does not include a coefficient for race. A single eGFR value is calculated for each patient. The reference interval is >60 mL/min/1.73m2. eGFR values greater than 90 will be reported as >90mL/min/1.73m2. Reference: Kahlil C, Niru M, Govind DC, Ector ND, Anyi CA, Jonah LA, et al. A Unifying Approach for GFR Estimation: Recommendations of the NKF-ASN Task Force on Reassessing the inclusion of Race in Diagnosing Kidney Disease. Am J Kidney Dis. 2020. GFR is estimated using creatinine, age, and sex. Patient's values should be interpreted as a trend. Below 90 mL/min/1.73m2, the patient may have renal disease. For additional information: www.kidney.org Plasma 08/15/2025 4:21 PM EST 08/15/2025 4:30 PM EST Luis Alfredo Dodd MD LAB BLOOD ORDERABLES Final Resul t Performing Organization Address City/State/[facility] Co de Phone Number [facility] [address] [place] [address] * ED ECG 12-Lead (MUSE) (08/15/2025 4:04 PM EST) 08/15/2025 4:04 PM EST Narrative MUSE - 08/16/2025 8:28 AM EST Ventricular Rate: 85 BPM Atrial Rate: 85 BPM P-R Interval: 156 ms QRS Duration: 90 ms QT: 424 ms QTc: 504 ms P [place]: 30 degrees R [place]: -29 degrees T [place]: 26 degrees Diagnosis Line: INTERPRETATION NOT AVAILABLE--ECG READ IN ER Confirmed by PHYSICIAN, ER ([id number]), content editor Crystal Linn ([id number]) on 08/16/2025 8:28:38 AM us Amaris Mary MD ECG ORDERABLES Final Result Performing Organization Address City/[facility] Co de Phone Number MUSE documented in this encounter Visit Diagnoses Diagnosis Thrombus- Primary Embolism and thrombosis of unspecified site S/P TAVR (transcatheter aortic valve replacement) Acute on chronic diastolic heart failure ([facility]) Acute on chronic diastolic heart failure Zenker's (hypopharyngeal) diverticulum Diverticulum of esophagus, acquired Abnormal CT scan of heart S/P TAVR (transcatheter aortic valve replacement) Aortic stenosis Aortic valve disorders Filling defect on imaging study Lightheadedness Dizziness and giddiness Shortness of breath COPD (chronic obstructive pulmonary disease) ([facility]) Chronic airway obstruction, not elsewhere classified CAD (coronary artery disease) Coronary atherosclerosis of unspecified type of vessel, [place] or graft Status post coronary artery stent placement Postsurgical percutaneous transluminal coronary angioplasty status GERD (gastroesophageal reflux disease) Esophageal reflux Allergies Aortic aneurysm ([facility]) Aortic aneurysm of unspecified site without mention of rupture Zenker diverticulum Diverticulum of esophagus, acquired * Assessment & Plan Note - Bev Sierra MD - 08/21/2025 6:27 AM ESTAssociated Problem(s): Aortic stenosis Repeat CT angio chest here found to have TAVR with small intrastent filling defect along the valve leaflet, favored to represent small thrombus; consistent findings on cardiac CT. No evidence of aortic dissection. CT surgery evaluated, no surgical intervention indicated however recommended cardiology workup. Orders should be received from [facility] by morning. BNP 475 on 08/16/25; now improving. - TTE 08/16/25, normal systolic function LVEF 60-65%, mean gradient 6 - FIDEL deferred, high risk due to zenker diverticulum - Luis mutation lab ordered; pending - switch heparin gtt to therapeutic lovenox starting 8pm today. Bridging to warfarin. - will do teaching today on lovenox injections - Warfarin started on 08/19. INR remains subtherapeutic (goal INR 2-3) - OP labwork w/ INR level on 08/23 morning - PCP follow-up scheduled for 08/23 at 1pm w/ Dr. Amira Alamo - OP cardiology follow-up scheduled for 08/26 at 9:15am at [facility]. They will connect pt to coumadin clinic at this visit. - Plan for OP PET scan to r/o valve uptake * Assessment & Plan Note - Bev Sierra MD - 08/21/2025 6:27 AM ESTAssociated Problem(s): S/P TAVR (transcatheter aortic valve replacement) Repeat CT angio chest here found to have TAVR with small intrastent filling defect along the valve leaflet, favored to represent small thrombus; consistent findings on cardiac CT. No evidence of aortic dissection. CT surgery evaluated, no surgical intervention indicated however recommended cardiology workup. Orders should be received from [facility] by morning. BNP 475 on 08/16/25; now improving. - TTE 08/16/25, normal systolic function LVEF 60-65%, mean gradient 6 - FIDEL deferred, high risk due to zenker diverticulum - Luis mutation lab ordered; pending - switch heparin gtt to therapeutic lovenox starting 8pm today. Bridging to warfarin. - will do teaching today on lovenox injections - Warfarin started on 08/19. INR remains subtherapeutic (goal INR 2-3) - OP labwork w/ INR level on 08/23 morning - PCP follow-up scheduled for 08/23 at 1pm w/ Dr. Amira Alamo - OP cardiology follow-up scheduled for 08/26 at 9:15am at [facility]. They will connect pt to coumadin clinic at this visit. - Plan for OP PET scan to r/o valve uptake * Assessment & Plan Note - Bev Sierra MD - 08/21/2025 6:27 AM ESTAssociated Problem(s): Filling defect on imaging study Repeat CT angio chest here found to have TAVR with small intrastent filling defect along the valve leaflet, favored to represent small thrombus; consistent findings on cardiac CT. No evidence of aortic dissection. CT surgery evaluated, no surgical intervention indicated however recommended cardiology workup. Orders should be received from [facility] by morning. BNP 475 on 08/16/25; now improving. - TTE 08/16/25, normal systolic function LVEF 60-65%, mean gradient 6 - FIDEL deferred, high risk due to zenker diverticulum - Luis mutation lab ordered; pending - switch heparin gtt to therapeutic lovenox starting 8pm today. Bridging to warfarin. - will do teaching today on lovenox injections - Warfarin started on 08/19. INR remains subtherapeutic (goal INR 2-3) - OP labwork w/ INR level on 08/23 morning - PCP follow-up scheduled for 08/23 at 1pm w/ Dr. Amira Alamo - OP cardiology follow-up scheduled for 08/26 at 9:15am at [facility]. They will connect pt to coumadin clinic at this visit. - Plan for OP PET scan to r/o valve uptake * Assessment & Plan Note - Bev Sierra MD - 08/21/2025 6:27 AM ESTAssociated Problem(s): Lightheadedness Patient initially presented with presyncopal episodes while undergoing outpatient elective PFT for COPD evaluation. Likely orthostatic +/- neurogenic from dysautonomia +/- vasovagal given history of episodes and elicitation after valsalva. - Encourage PO intake - Continuous tele * Assessment & Plan Note - Bev Sierra MD - 08/21/2025 6:27 AM ESTAssociated Problem(s): Shortness of breath Patient initially presented with presyncopal episodes while undergoing outpatient elective PFT for COPD evaluation. Likely orthostatic +/- neurogenic from dysautonomia +/- vasovagal given history of episodes and elicitation after valsalva. - Encourage PO intake - Continuous tele * Assessment & Plan Note - Bev Sierra MD - 08/21/2025 6:27 AM ESTAssociated Problem(s): COPD (chronic obstructive pulmonary disease) ([facility]) Possibly having a COPDe, will consider starting abx / pred once fluid status is better determined. - Goal O2 sat 88-92% - Continue anoroellipta/asmanex - Albuterol PRN - acapella, incentive spirometry ordered - walk test today * Assessment & Plan Note - Bev Sierra MD - 08/21/2025 6:27 AM ESTAssociated Problem(s): CAD (coronary artery disease) History of stent placement post HI in 2022, troponins here 19->17. Lactate 4.2- >2.5, possiblyfrom decreased perfusion after being on esmolol and diltiazem drip. - Continue ASA, statin - Lipid panel; LDL 81, HDL 82, Triglycerides 124 * Assessment & Plan Note - Bev Sierra MD - 08/21/2025 6:27 AM ESTAssociated Problem(s): Status post coronary artery stent placement History of stent placement post HI in 2022, troponins here 19->17. Lactate 4.2- >2.5, possiblyfrom decreased perfusion after being on esmolol and diltiazem drip. - Continue ASA, statin - Lipid panel; LDL 81, HDL 82, Triglycerides 124 * Assessment & Plan Note - Bev Sierra MD - 08/21/2025 6:27 AM ESTAssociated Problem(s): Aortic aneurysm ([facility]) Transferred to [facility] for concern of aortic dissection, was sent with an esmolol and diltiazem drip. Repeat imaging here showed no evidence of dissection, CT Surgery would still like to have outpatientfollow-up for her ascending aortic aneurysm which is below threshold for elective surgical repair. On imaging here showing thoracic aorta as 4.0cm. - Follow-up outpatient CT surgery * Assessment & Plan Note - Bev Sierra MD - 08/21/2025 6:27 AM ESTAssociated Problem(s): Zenker diverticulum Patient reported history of pouch in her esophagus that periodically gets food and pills stuck. Stated she has workup on this already and has a procedure scheduled for repair. - ENT consult; recommend to defer FIDEL due to risk * Assessment & Plan Note - Bev Sierra MD - 08/21/2025 6:27 AM ESTAssociated Problem(s): GERD (gastroesophageal reflux disease) - continue PPI * Assessment & Plan Note - Bev Sierra MD - 08/21/2025 6:27 AM ESTAssociated Problem(s): Allergies - continue certirizine * Assessment & Plan Note - Bev Sierra MD - 08/20/2025 2:46 PM ESTAssociated Problem(s): Filling defect on imaging study Repeat CT angio chest here found to have TAVR with small intrastent filling defect along the valve leaflet, favored to represent small thrombus; consistent findings on cardiac CT. No evidence of aortic dissection. CT surgery evaluated, no surgical intervention indicated however recommended cardiology workup. Orders should be received from [facility] by morning. BNP 475 on 08/16/25; now improving. - TTE 08/16/25, normal systolic function LVEF 60-65%, mean gradient 6 - FIDEL deferred, high risk due to zenker diverticulum - Luis mutation lab ordered; pending - switch heparin gtt to therapeutic lovenox starting 8pm today. Bridging to warfarin. - will do teaching today on lovenox injections - Warfarin started on 08/19. INR remains subtherapeutic (goal INR 2-3) - OP labwork w/ INR level on 08/23 morning - PCP follow-up scheduled for 08/23 at 1pm w/ Dr. Amira Alamo - OP cardiology follow-up scheduled for 08/26 at 9:15am at [facility]. They will connect pt to coumadin clinic at this visit. - Plan for OP PET scan to r/o valve uptake * Assessment & Plan Note - Bev Sierra MD - 08/20/2025 2:46 PM ESTAssociated Problem(s): COPD (chronic obstructive pulmonary disease) ([facility]) Possibly having a COPDe, will consider starting abx / pred once fluid status is better determined. - Goal O2 sat 88-92% - Continue anoroellipta/asmanex - Albuterol PRN - acapella, incentive spirometry ordered - walk test today * Assessment & Plan Note - Bev Sierra MD - 08/20/2025 2:46 PM ESTAssociated Problem(s): Aortic stenosis Repeat CT angio chest here found to have TAVR with small intrastent filling defect along the valve leaflet, favored to represent small thrombus; consistent findings on cardiac CT. No evidence of aortic dissection. CT surgery evaluated, no surgical intervention indicated however recommended cardiology workup. Orders should be received from [facility] by morning. BNP 475 on 08/16/25; now improving. - TTE 08/16/25, normal systolic function LVEF 60-65%, mean gradient 6 - FIDEL deferred, high risk due to zenker diverticulum - Luis mutation lab ordered; pending - switch heparin gtt to therapeutic lovenox starting 8pm today. Bridging to warfarin. - will do teaching today on lovenox injections - Warfarin started on 08/19. INR remains subtherapeutic (goal INR 2-3) - OP labwork w/ INR level on 08/23 morning - PCP follow-up scheduled for 08/23 at 1pm w/ Dr. Amira Alamo - OP cardiology follow-up scheduled for 08/26 at 9:15am at [facility]. They will connect pt to coumadin clinic at this visit. - Plan for OP PET scan to r/o valve uptake * Assessment & Plan Note - Bev Sierra MD - 08/20/2025 2:46 PM ESTAssociated Problem(s): S/P TAVR (transcatheter aortic valve replacement) Repeat CT angio chest here found to have TAVR with small intrastent filling defect along the valve leaflet, favored to represent small thrombus; consistent findings on cardiac CT. No evidence of aortic dissection. CT surgery evaluated, no surgical intervention indicated however recommended cardiology workup. Orders should be received from [facility] by morning. BNP 475 on 08/16/25; now improving. - TTE 08/16/25, normal systolic function LVEF 60-65%, mean gradient 6 - FIDEL deferred, high risk due to zenker diverticulum - Luis mutation lab ordered; pending - switch heparin gtt to therapeutic lovenox starting 8pm today. Bridging to warfarin. - will do teaching today on lovenox injections - Warfarin started on 08/19. INR remains subtherapeutic (goal INR 2-3) - OP labwork w/ INR level on 08/23 morning - PCP follow-up scheduled for 08/23 at 1pm w/ Dr. Amira Alamo - OP cardiology follow-up scheduled for 08/26 at 9:15am at [facility]. They will connect pt to coumadin clinic at this visit. - Plan for OP PET scan to r/o valve uptake * Assessment & Plan Note - Bev Sierra MD - 08/20/2025 6:31 AM ESTAssociated Problem(s): Lightheadedness Patient initially presented with presyncopal episodes while undergoing outpatient elective PFT for COPD evaluation. Likely orthostatic +/- neurogenic from dysautonomia +/- vasovagal given history of episodes and elicitation after valsalva. - Encourage PO intake - Continuous tele * Assessment & Plan Note - Bev Sierra MD - 08/20/2025 6:31 AM ESTAssociated Problem(s): Shortness of breath Patient initially presented with presyncopal episodes while undergoing outpatient elective PFT for COPD evaluation. Likely orthostatic +/- neurogenic from dysautonomia +/- vasovagal given history of episodes and elicitation after valsalva. - Encourage PO intake - Continuous tele * Assessment & Plan Note - Bev Sierra MD - 08/20/2025 6:31 AM ESTAssociated Problem(s): CAD (coronary artery disease) History of stent placement post HI in 2022, troponins here 19->17. Lactate 4.2- >2.5, possiblyfrom decreased perfusion after being on esmolol and diltiazem drip. - Continue ASA, statin - Lipid panel; LDL 81, HDL 82, Triglycerides 124 * Assessment & Plan Note - Bev Sierra MD - 08/20/2025 6:31 AM ESTAssociated Problem(s): Status post coronary artery stent placement History of stent placement post HI in 2022, troponins here 19->17. Lactate 4.2- >2.5, possiblyfrom decreased perfusion after being on esmolol and diltiazem drip. - Continue ASA, statin - Lipid panel; LDL 81, HDL 82, Triglycerides 124 * Assessment & Plan Note - Bev Sierra MD - 08/20/2025 6:31 AM ESTAssociated Problem(s): Aortic aneurysm (CMS-HCC) Transferred to [facility] for concern of aortic dissection, was sent with an esmolol and diltiazem drip. Repeat imaging here showed no evidence of dissection, CT Surgery would still like to have outpatientfollow-up for her ascending aortic aneurysm which is below threshold for elective surgical repair. On imaging here showing thoracic aorta as 4.0cm. 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 Stated she has workup on this already and has a procedure scheduled for repair. - ENT consult; recommend to defer FIDEL due to risk * Assessment & Plan Note - Bev Sierra MD - 08/20/2025 6:31 AM ESTAssociated Problem(s): GERD (gastroesophageal reflux disease) - continue PPI * Assessment & Plan Note - Bev Sierra MD - 08/20/2025 6:31 AM ESTAssociated Problem(s): Allergies - continue certirizine * Assessment & Plan Note - Ashwin Puga MD - 08/19/2025 11:19 AM EST Associated Problem(s): Aortic stenosis Repeat CT angio chest here found to have TAVR with small intrastent filling defect along the valve leaflet, favored to represent small thrombus. No evidence of aortic dissection. CT surgery evaluated, no surgical intervention indicated however recommended cardiology workup. Orders should be received from [facility] by morning. BNP 475 on 08/16/25. - TTE 08/16/25, normal systolic function LVEF 60-65%, mean gradient 6 - FIDEL deferred, high risk due to zenker diverticulum - Blood cultures NG >48hours - heparin gtt - Cardiac CT captured today; pending final read - Luis mutation lab ordered; pending - BNP yesterday at 79, improved from admission value of 475 * Assessment & Plan Note - Ashwin Puga MD - 08/19/2025 11:19 AM EST Associated Problem(s): S/P TAVR (transcatheter aortic valve replacement) Repeat CT angio chest here found to have TAVR with small intrastent filling defect along the valve leaflet, favored to represent small thrombus. No evidence of aortic dissection. CT surgery evaluated, no surgical intervention indicated however recommended cardiology workup. Orders should be received from [facility] by morning. BNP 475 on 08/16/25. - TTE 08/16/25, normal systolic function LVEF 60-65%, mean gradient 6 - FIDEL deferred, high risk due to zenker diverticulum - Blood cultures NG >48hours - heparin gtt - Cardiac CT captured today; pending final read - Luis mutation lab ordered; pending - BNP yesterday at 79, improved from admission value of 475 * Assessment & Plan Note - Ashwin Puga MD - 08/19/2025 11:19 AM EST Associated Problem(s): Filling defect on imaging study Repeat CT angio chest here found to have TAVR with small intrastent filling defect along the valve leaflet, favored to represent small thrombus. No evidence of aortic dissection. CT surgery evaluated, no surgical intervention indicated however recommended cardiology workup. Orders should be received from [facility] by morning. BNP 475 on 08/16/25. - TTE 08/16/25, normal systolic function LVEF 60-65%, mean gradient 6 - FIDEL deferred, high risk due to zenker diverticulum - Blood cultures NG >48hours - heparin gtt - Cardiac CT captured today; pending final read - Luis mutation lab ordered; pending - BNP yesterday at 79, improved from admission value of 475 * Assessment & Plan Note - Ashwin Puga MD - 08/19/2025 8:39 AM EST Associated Problem(s): Lightheadedness Patient initially presented with presyncopal episodes while undergoing outpatient elective PFT for COPD evaluation. Likely orthostatic +/- neurogenic from dysautonomia +/- vasovagal given history of episodes and elicitation after valsalva. - Encourage PO intake - Continuous tele * Assessment & Plan Note - Ashwin Puga MD - 08/19/2025 8:39 AM EST Associated Problem(s): Shortness of breath Patient initially presented with presyncopal episodes while undergoing outpatient elective PFT for COPD evaluation. Likely orthostatic +/- neurogenic from dysautonomia +/- vasovagal given history of episodes and elicitation after valsalva. - Encourage PO intake - Continuous tele * Assessment & Plan Note - Ashwin Puga MD - 08/19/2025 8:39 AM EST Associated Problem(s): COPD (chronic obstructive pulmonary disease) ([facility]) Possibly having a COPDe, will consider starting abx / pred once fluid status is better determined. - Goal O2 sat 88-92% - Continue anoroellipta/asmanex - Albuterol PRN - acapella, incentive spirometry ordered * Assessment & Plan Note - Ashwin Puga MD - 08/19/2025 8:39 AM EST Associated Problem(s): CAD (coronary artery disease) History of stent placement post HI in 2022, troponins here 19->17. Lactate 4.2- >2.5, possiblyfrom decreased perfusion after being on esmolol and diltiazem drip. - Continue ASA, statin - Lipid panel; LDL 81, HDL 82, Triglycerides 124 * Assessment & Plan Note - Ashwin Puga MD - 08/19/2025 8:39 AM EST Associated Problem(s): Status post coronary artery stent placement History of stent placement post HI in 2022, troponins here 19->17. Lactate 4.2- >2.5, possiblyfrom decreased perfusion after being on esmolol and diltiazem drip. - Continue ASA, statin - Lipid panel; LDL 81, HDL 82, Triglycerides 124 * Assessment & Plan Note - Ashwin Puga MD - 08/19/2025 8:39 AM EST Associated Problem(s): Aortic aneurysm ([facility]) Transferred to [facility] for concern of aortic dissection, was sent with an esmolol and diltiazem drip. Repeat imaging here showed no evidence of dissection, CT Surgery would still like to have outpatientfollow-up for her ascending aortic aneurysm which is below threshold for elective surgical repair. On imaging here showing thoracic aorta as 4.0cm. 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 Stated she has workup on this already and has a procedure scheduled for repair. - ENT consult; recommend to defer FIDEL due to risk * Assessment & Plan Note - Ashwin Puga MD - 08/19/2025 8:39 AM EST Associated Problem(s): GERD (gastroesophageal reflux disease) - continue PPI * Assessment & Plan Note - Ashwin Puga MD - 08/19/2025 8:39 AM EST Associated Problem(s): Allergies - continue certirizine * Assessment & Plan Note - Ashwin Puga MD - 08/18/2025 10:37 AM EST Associated Problem(s): Aortic stenosis Repeat CT angio chest here found to have TAVR with small intrastent filling defect along the valve leaflet, favored to represent small thrombus. No evidence of aortic dissection. CT surgery evaluated, no surgical intervention indicated however recommended cardiology workup. Orders should be received from [facility] by morning. BNP 475 on 08/16/25. - TTE 08/16/25, normal systolic function LVEF 60-65%, mean gradient 6 - FIDEL deferred, high risk due to zenker diverticulum - Blood cultures NG >48hours - heparin gtt - Cardiac CT ordered; pending - Luis mutation lab ordered; pending - BNP ordered; pending * Assessment & Plan Note - Ashwin Puga MD - 08/18/2025 10:37 AM EST Associated Problem(s): S/P TAVR (transcatheter aortic valve replacement) Repeat CT angio chest here found to have TAVR with small intrastent filling defect along the valve leaflet, favored to represent small thrombus. No evidence of aortic dissection. CT surgery evaluated, no surgical intervention indicated however recommended cardiology workup. Orders should be received from [facility] by morning. BNP 475 on 08/16/25. - TTE 08/16/25, normal systolic function LVEF 60-65%, mean gradient 6 - FIDEL deferred, high risk due to zenker diverticulum - Blood cultures NG >48hours - heparin gtt - Cardiac CT ordered; pending - Luis mutation lab ordered; pending - BNP ordered; pending * Assessment & Plan Note - Ashwin Puga MD - 08/18/2025 10:37 AM EST Associated Problem(s): Filling defect on imaging study Repeat CT angio chest here found to have TAVR with small intrastent filling defect along the valve leaflet, favored to represent small thrombus. No evidence of aortic dissection. CT surgery evaluated, no surgical intervention indicated however recommended cardiology workup. Orders should be received from [facility] by morning. BNP 475 on 08/16/25. - TTE 08/16/25, normal systolic function LVEF 60-65%, mean gradient 6 - FIDEL deferred, high risk due to zenker diverticulum - Blood cultures NG >48hours - heparin gtt - Cardiac CT ordered; pending - Luis mutation lab ordered; pending - BNP ordered; pending * Assessment & Plan Note - Ashwin Puga MD - 08/18/2025 10:37 AM EST Associated Problem(s): COPD (chronic obstructive pulmonary disease) ([facility]) Possibly having a COPDe, will consider starting abx / pred once fluid status is better determined. 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 Stated she has workup on this already and has a procedure scheduled for repair. - ENT consult; recommend to defer FIDEL due to risk * Assessment & Plan Note - Ashwin Puga MD - 08/18/2025 7:21 AM EST Associated Problem(s): Lightheadedness Patient initially presented with presyncopal episodes while undergoing outpatient elective PFT for COPD evaluation. Likely orthostatic +/- neurogenic from dysautonomia +/- vasovagal given history of episodes and elicitation after valsalva. - Encourage PO intake - Continuous tele * Assessment & Plan Note - Ashwin Puga MD - 08/18/2025 7:21 AM EST Associated Problem(s): Shortness of breath Patient initially presented with presyncopal episodes while undergoing outpatient elective PFT for COPD evaluation. Likely orthostatic +/- neurogenic from dysautonomia +/- vasovagal given history of episodes and elicitation after valsalva. - Encourage PO intake - Continuous tele * Assessment & Plan Note - Ashwin Puga MD - 08/18/2025 7:21 AM EST Associated Problem(s): CAD (coronary artery disease) History of stent placement post HI in 2022, troponins here 19->17. Lactate 4.2- >2.5, possiblyfrom decreased perfusion after being on esmolol and diltiazem drip. - Continue ASA, statin - Lipid panel; LDL 81, HDL 82, Triglycerides 124 * Assessment & Plan Note - Ashwin Puga MD - 08/18/2025 7:21 AM EST Associated Problem(s): Status post coronary artery stent placement History of stent placement post HI in 2022, troponins here 19->17. Lactate 4.2- >2.5, possiblyfrom decreased perfusion after being on esmolol and diltiazem drip. - Continue ASA, statin - Lipid panel; LDL 81, HDL 82, Triglycerides 124 * Assessment & Plan Note - Ashwin Puga MD - 08/18/2025 7:21 AM EST Associated Problem(s): Aortic aneurysm ([facility]) Transferred to [facility] for concern of aortic dissection, was sent with an esmolol and diltiazem drip. Repeat imaging here showed no evidence of dissection, CT Surgery would still like to have outpatientfollow-up for her ascending aortic aneurysm which is below threshold for elective surgical repair. On imaging here showing thoracic aorta as 4.0cm. - Follow-up outpatient CT surgery * Assessment & Plan Note - Ashwin Puga MD - 08/18/2025 7:21 AM EST Associated Problem(s): GERD (gastroesophageal reflux disease) - continue PPI * Assessment & Plan Note - Ashwin Puga MD - 08/18/2025 7:21 AM EST Associated Problem(s): Allergies - continue certirizine * Assessment & Plan Note - Ashwin Puga MD - 08/17/2025 9:18 AM EST Associated Problem(s): GERD (gastroesophageal reflux disease) - continue PPI * Assessment & Plan Note - Ashwin Puga MD - 08/17/2025 9:18 AM EST Associated Problem(s): Allergies - continue certirizine * Assessment & Plan Note - Ashwin Puga MD - 08/17/2025 9:18 AM EST Associated Problem(s): Aortic stenosis Repeat CT angio chest here found to have TAVR with small intrastent filling defect along the valve leaflet, favored to represent small thrombus. No evidence of aortic dissection. CT surgery evaluated, no surgical intervention indicated however recommended cardiology workup. Orders should be received from [facility] by morning. BNP 475 on 08/16/25. - TTE 08/16/25, normal systolic function LVEF 60-65%, mean gradient 6 - FIDEL ordered; pending, awaiting ENT clearance (zenker diverticulum) - Blood cultures ordered; pending (r/o endocarditis) - heparin gtt * Assessment & Plan Note - Ashwin Puga MD - 08/17/2025 9:18 AM EST Associated Problem(s): S/P TAVR (transcatheter aortic valve replacement) Repeat CT angio chest here found to have TAVR with small intrastent filling defect along the valve leaflet, favored to represent small thrombus. No evidence of aortic dissection. CT surgery evaluated, no surgical intervention indicated however recommended cardiology workup. Orders should be received from [facility] by morning. BNP 475 on 08/16/25. - TTE 08/16/25, normal systolic function LVEF 60-65%, mean gradient 6 - FIDEL ordered; pending, awaiting ENT clearance (zenker diverticulum) - Blood cultures ordered; pending (r/o endocarditis) - heparin gtt * Assessment & Plan Note - Ashwin Puga MD - 08/17/2025 9:18 AM EST Associated Problem(s): Filling defect on imaging study Repeat CT angio chest here found to have TAVR with small intrastent filling defect along the valve leaflet, favored to represent small thrombus. No evidence of aortic dissection. CT surgery evaluated, no surgical intervention indicated however recommended cardiology workup. Orders should be received from [facility] by morning. BNP 475 on 08/16/25. - TTE 08/16/25, normal systolic function LVEF 60-65%, mean gradient 6 - FIDEL ordered; pending, awaiting ENT clearance (zenker diverticulum) - Blood cultures ordered; pending (r/o endocarditis) - heparin gtt * Assessment & Plan Note - Ashwin Puga MD - 08/17/2025 9:18 AM EST Associated Problem(s): Lightheadedness Patient initially presented with presyncopal episodes while undergoing outpatient elective PFT for COPD evaluation. Likely orthostatic +/- neurogenic from dysautonomia +/- vasovagal given history of episodes and elicitation after valsalva. - Encourage PO intake - Continuous tele * Assessment & Plan Note - Ashwin Puga MD - 08/17/2025 9:18 AM EST Associated Problem(s): Shortness of breath Patient initially presented with presyncopal episodes while undergoing outpatient elective PFT for COPD evaluation. Likely orthostatic +/- neurogenic from dysautonomia +/- vasovagal given history of episodes and elicitation after valsalva. - Encourage PO intake - Continuous tele * Assessment & Plan Note - Ashwin Puga MD - 08/17/2025 9:18 AM EST Associated Problem(s): COPD (chronic obstructive pulmonary disease) ([facility]) Possibly having a COPDe, will consider starting abx / pred once fluid status is better determined. - Goal O2 sat 88-92% - Continue anoroellipta/asmanex - Albuterol PRN * Assessment & Plan Note - Ashwin Puga MD - 08/17/2025 9:18 AM EST Associated Problem(s): CAD (coronary artery disease) History of stent placement post HI in 2022, troponins here 19->17. Lactate 4.2- >2.5, possiblyfrom decreased perfusion after being on esmolol and diltiazem drip. - Continue ASA, statin - Lipid panel; LDL 81, HDL 82, Triglycerides 124 * Assessment & Plan Note - Ashwin Puga MD - 08/17/2025 9:18 AM EST Associated Problem(s): Status post coronary artery stent placement History of stent placement post HI in 2022, troponins here 19->17. Lactate 4.2- >2.5, possiblyfrom decreased perfusion after being on esmolol and diltiazem drip. - Continue ASA, statin - Lipid panel; LDL 81, HDL 82, Triglycerides 124 * Assessment & Plan Note - Ashwin Puga MD - 08/17/2025 9:18 AM EST Associated Problem(s): Aortic aneurysm ([facility]) Transferred to [facility] for concern of aortic dissection, was sent with an esmolol and diltiazem drip. Repeat imaging here showed no evidence of dissection, CT Surgery would still like to have outpatientfollow-up for her ascending aortic aneurysm which is below threshold for elective surgical repair. On imaging here showing thoracic aorta as 4.0cm. 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 Stated she has workup on this already and has a procedure scheduled for repair. - ENT consult; pending - assess risk for FIDEL w/ hx of zenker diverticulum * Assessment & Plan Note - Ashwin Puga MD - 08/16/2025 9:11 AM EST Associated Problem(s): Aortic aneurysm ([facility]) Transferred to [facility] for concern of aortic dissection, was sent with an esmolol and diltiazem drip. Repeat imaging here showed no evidence of dissection, CT Surgery would still like to have outpatientfollow-up for her ascending aortic aneurysm which is below threshold for elective surgical repair. On imaging here showing thoracic aorta as 4.0cm. 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 Stated she has workup on this already and has a procedure scheduled for repair. - ENT e consult; pending - assess risk for FIDEL w/ hx of zenker diverticulum * Assessment & Plan Note - Ashwin Puga MD - 08/16/2025 9:11 AM EST Associated Problem(s): Aortic stenosis Repeat CT angio chest here found to have TAVR with small intrastent filling defect along the valve leaflet, favored to represent small thrombus. No evidence of aortic dissection. CT surgery evaluated, no surgical intervention indicated however recommended cardiology workup. Orders should be received from [facility] by morning. - TTE + FIDEL ordered; pending - Blood cultures ordered; pending (r/o endocarditis) - ESR/CRP ordered; pending - heparin gtt * Assessment & Plan Note - Ashwin Puga MD - 08/16/2025 9:11 AM EST Associated Problem(s): S/P TAVR (transcatheter aortic valve replacement) Repeat CT angio chest here found to have TAVR with small intrastent filling defect along the valve leaflet, favored to represent small thrombus. No evidence of aortic dissection. CT surgery evaluated, no surgical intervention indicated however recommended cardiology workup. Orders should be received from [facility] by morning. - TTE + FIDEL ordered; pending - Blood cultures ordered; pending (r/o endocarditis) - ESR/CRP ordered; pending - heparin gtt * Assessment & Plan Note - Ashwin Puga MD - 08/16/2025 9:11 AM EST Associated Problem(s): Filling defect on imaging study Repeat CT angio chest here found to have TAVR with small intrastent filling defect along the valve leaflet, favored to represent small thrombus. No evidence of aortic dissection. CT surgery evaluated, no surgical intervention indicated however recommended cardiology workup. Orders should be received from [facility] by morning. - TTE + FIDEL ordered; pending - Blood cultures ordered; pending (r/o endocarditis) - ESR/CRP ordered; pending - heparin gtt * Assessment & Plan Note - Ashwin Puga MD - 08/16/2025 9:11 AM EST Associated Problem(s): Lightheadedness Patient initially presented with presyncopal episodes while undergoing outpatient elective PFT for COPD evaluation. Likely orthostatic +/- neurogenic from dysautonomia +/- vasovagal given history of episodes and elicitation after valsalva. - Encourage PO intake - Continuous tele * Assessment & Plan Note - Ashwin Puga MD - 08/16/2025 9:11 AM EST Associated Problem(s): Shortness of breath Patient initially presented with presyncopal episodes while undergoing outpatient elective PFT for COPD evaluation. Likely orthostatic +/- neurogenic from dysautonomia +/- vasovagal given history of episodes and elicitation after valsalva. - Encourage PO intake - Continuous tele * Assessment & Plan Note - Ashwin Puga MD - 08/16/2025 9:11 AM EST Associated Problem(s): COPD (chronic obstructive pulmonary disease) ([facility]) Possibly having a COPDe, will consider starting abx / pred once fluid status is better determined. - Goal O2 sat 88-92% - Continue anoroellipta/asmanex - Albuterol PRN * Assessment & Plan Note - Ashwin Puga MD - 08/16/2025 9:11 AM EST Associated Problem(s): CAD (coronary artery disease) History of stent placement post HI in 2022, troponins here 19->17. Lactate 4.2- >2.5, possiblyfrom decreased perfusion after being on esmolol and diltiazem drip. - Continue ASA, statin - Lipid panel; pending * Assessment & Plan Note - Ashwin Puga MD - 08/16/2025 9:11 AM EST Associated Problem(s): Status post coronary artery stent placement History of stent placement post HI in 2022, troponins here 19->17. Lactate 4.2- >2.5, possiblyfrom decreased perfusion after being on esmolol and diltiazem drip. - Continue ASA, statin - Lipid panel; pending * Assessment & Plan Note - Ashwin Puga MD - 08/15/2025 7:49 PM EST Associated Problem(s): Aortic stenosis Repeat CT angio chest here found to have TAVR with small intrastent filling defect along the valve leaflet, favored to represent small thrombus. No evidence of aortic dissection. CT surgery evaluated, no surgical intervention indicated however recommended cardiology workup. Orders should be received from [facility] by morning. - TTE + FIDEL ordered; pending - Blood cultures ordered; pending (r/o endocarditis) - heparin gtt * Assessment & Plan Note - Ashwin Puga MD - 08/15/2025 7:49 PM EST Associated Problem(s): S/P TAVR (transcatheter aortic valve replacement) Repeat CT angio chest here found to have TAVR with small intrastent filling defect along the valve leaflet, favored to represent small thrombus. No evidence of aortic dissection. CT surgery evaluated, no surgical intervention indicated however recommended cardiology workup. Orders should be received from [facility] by morning. - TTE + FIDEL ordered; pending - Blood cultures ordered; pending (r/o endocarditis) - heparin gtt * Assessment & Plan Note - Ashwin Puga MD - 08/15/2025 7:49 PM EST Associated Problem(s): Filling defect on imaging study Repeat CT angio chest here found to have TAVR with small intrastent filling defect along the valve leaflet, favored to represent small thrombus. No evidence of aortic dissection. CT surgery evaluated, no surgical intervention indicated however recommended cardiology workup. Orders should be received from [facility] by morning. - TTE + FIDEL ordered; pending - Blood cultures ordered; pending (r/o endocarditis) - heparin gtt * Assessment & Plan Note - Ashwin Puga MD - 08/15/2025 7:49 PM EST Associated Problem(s): Lightheadedness Patient initially presented with presyncopal episodes while undergoing outpatient elective PFT for COPD evaluation. Likely orthostatic +/- neurogenic from dysautonomia +/- vasovagal given history of episodes and elicitation after valsalva. - Encourage PO intake - Continuous tele * Assessment & Plan Note - Ashwin Puga MD - 08/15/2025 7:49 PM EST Associated Problem(s): Shortness of breath Patient initially presented with presyncopal episodes while undergoing outpatient elective PFT for COPD evaluation. Likely orthostatic +/- neurogenic from dysautonomia +/- vasovagal given history of episodes and elicitation after valsalva. - Encourage PO intake - Continuous tele * Assessment & Plan Note - Ashwin Puga MD - 08/15/2025 7:49 PM EST Associated Problem(s): COPD (chronic obstructive pulmonary disease) ([facility]) - Goal O2 sat 88-92% - Continue anoroellipta/asmanex - Albuterol PRN * Assessment & Plan Note - Ashwin Puga MD - 08/15/2025 7:49 PM EST Associated Problem(s): CAD (coronary artery disease) History of stent placement post HI in 2022, troponins here 19->17. Lactate 4.2- >2.5, possiblyfrom decreased perfusion after being on esmolol and diltiazem drip. - Continue ASA, statin * Assessment & Plan Note - Ashwin Pgua MD - 08/15/2025 7:49 PM EST Associated Problem(s): Status post coronary artery stent placement History of stent placement post HI in 2022, troponins here 19->17. Lactate 4.2- >2.5, possiblyfrom decreased perfusion after being on esmolol and diltiazem drip. - Continue ASA, statin * Assessment & Plan Note - Ashwin Puga MD - 08/15/2025 7:49 PM EST Associated Problem(s): GERD (gastroesophageal reflux disease) - continue PPI * Assessment & Plan Note - Ashwin Puga MD - 08/15/2025 7:49 PM EST Associated Problem(s): Allergies - continue certirizine * Assessment & Plan Note - Ashwin Puga MD - 08/15/2025 7:49 PM EST Associated Problem(s): Aortic aneurysm ([facility]) Transferred to [facility] for concern of aortic dissection, was sent with an esmolol and diltiazem drip. Repeat imaging here showed no evidence of dissection, CT Surgery would still like to have outpatientfollow-up for her ascending aortic aneurysm which is below threshold for elective surgical repair. - Follow-up outpatient CT surgery documented in this encounter Administered Medications Inactive Administered Medications - up to 3 most recent administrations Medication Order MAR Action Action Date Dose Rate Site acetaminophen (TYLENOL) tablet 650 mg 650 mg, Oral, Every 6 hours PRN, moderate pain (NRS 4-6) or if patient is non-communicative (CPOT 3-5), mild pain (NRS 1-3); no comparable CPOT score, Starting on 08/17/25 at 0705, Maximum dose of acetaminophen is 4000 mg (4 grams) from all sources in 24 hours. Given 08/17/2025 6:55 AM EST 650 mg aspirin chewable tablet 81 mg 81 mg, Oral, Daily, First dose on Sofía 08/15/25 at 1913 Given 08/21/2025 8:24 AM EST 81 mg Given 08/20/2025 8:20 AM EST 81 mg Given 08/19/2025 8:25 AM EST 81 mg atorvastatin (LIPITOR) tablet 80 mg 80 mg, Oral, Daily, First dose on Sofía 08/15/25 at 1913 Given 08/21/2025 8:24 AM EST 80 mg Given 08/20/2025 8:20 AM EST 80 mg Given 08/19/2025 8:25 AM EST 80 mg cetirizine (ZYRTEC) tablet 10 mg 10 mg, Oral, Daily, First dose on Sofía 08/15/25 at 1913, Therapeutic Interchange: levocetirizine (XYZAL) tablet 5 mg po DAILY = cetirizine (ZYRTEC) tablet 10 mg po DAILY Given 08/21/2025 8:24 AM EST 10 mg Given 08/20/2025 8:20 AM EST 10 mg Given 08/19/2025 8:25 AM EST 10 mg enoxaparin (LOVENOX) syringe 60 mg/0.6 mL 60 mg (rounded from 68.9 mg = 1 mg/kg 68.9 kg), Subcutaneous, Every 12 hours, First dose on Tue08/20/25 at 2000, For patient weight range 30 - 129 kg (66 - 285 lbs). Given 08/21/2025 8:24 AM EST 60 mg Abdom inal Tissue Given 08/20/2025 8:29 PM EST 60 mg Ab dominal Tissue esmolol (BREVIBLOC) 2000 mg (20 mg/mL) in Sodium Chloride (iso-osm) 100 mL IV infusion Intravenous, at 0-43.8 mL/hr, Continuous, Starting on Sofía 08/15/25 at 1637, CMU Telemetry Monitoring Required, do not discontinue CMU., Initial starting rate: 25 mcg/kg/min, Titrate by: 25 - 50 mcg/kg/min, Titration interval: no more frequent than: 5 minutes, Clinical Goal: HR (pulse) BPM LESS THAN:, Enter desired goal (bpm): 60, Contact Provider: If goals cannot be maintained at highest permissible dose Rate/Dose Change 08/15/2025 5:11 PM EST 75 mcg/kg/min 16.4 mL/hr Rate/Dose Change 08/15/2025 4:38 PM EST 50 mcg/kg/min 11 m L/hr New Bag 08/15/2025 4:13 PM EST 25 mcg/kg/min 5.5 mL/hr furosemide (LASIX) injection 40 mg 40 mg, Intravenous, Once, On Tue08/16/25 at 1600, For 1 dose, Give doses of 100mg or less over 5 minutes. For doses over 100mg, give at rate of up to 20mg/min. Given 08/16/2025 4:51 PM EST 40 mg furosemide (LASIX) injection 40 mg 40 mg, Intravenous, Once, On 08/17/25 at 0930, For 1 dose, Give doses of 100mg or less over 5 minutes. For doses over 100mg, give at rate of up to 20mg/min. Given 08/17/2025 10:10 AM EST 40 mg furosemide (LASIX) injection 40 mg 40 mg, Intravenous, Once, On 08/18/25 at 0930, For 1 dose, Give doses of 100mg or less over 5 minutes. For doses over 100mg, give at rate of up to 20mg/min. Given 08/18/2025 10:38 AM EST 40 mg guaiFENesin (ROBITUSSIN) 100 mg/5 mL syrup 100 mg 100 mg, Oral, Every 4 hours PRN, Congestion, Starting on 08/18/25 at 0816 Given 08/20/2025 9:29 PM EST 100 mg Given 08/20/2025 9:08 AM EST 100 mg Given 08/19/2025 8:48 PM EST 100 mg heparin (porcine) injection 3,000 Units 3,000 Units (rounded from 2,920 Units = 40 Units/kg 73 kg), Intravenous, Every 6 hours PRN, For low hPTT = 36 to 89 seconds, Starting on Sofía 08/15/25 at 1852, For 5 days 2 hours, For low hPTT = 36 to 89 seconds; BOLUS 40 units/kg (MAX 10,000 units) Per hPTT goal 90-120 seconds protocol Given 08/17/2025 7:01 AM EST 3,000 Units heparin (porcine) injection 6,000 Units 6,000 Units (rounded from 5,840 Units = 80 Units/kg 73 kg), Intravenous, Once, On Sofía 08/15/25 at 1823, For 1 dose, Maximum initial bolus of 10,000 units Given 08/15/2025 6:35 PM EST 6,000 Units heparin 41475 units in 0.45% NaCl 250 mL IV infusion Intravenous, at 13.1 mL/hr, Continuous, Starting on Sofía 08/15/25 at 1853, For 5 days 2 hours, Goal hPTT 90-120 seconds hPTT = less than 36 seconds: BOLUS 80 unit/kg/ IV INCREASE dose by 4 units/kg/hour ORDER repeat hPTT in 6 hours hPTT = 36 to 89 seconds: BOLUS 40 unit/kg/ IV INCREASE dose by 2 units/kg/hour ORDER repeat hPTT in 6 hours hPTT = 90 to 120 seconds: NO BOLUS CONTINUE current dose ORDER repeat hPTT in 6 hours until there are 2 consecutive results in range. When 2 consecutive hPTT are at goal, then monitor hPTT daily (minimum). If the hPTT is out of range after this, then resume checking hPTT every 6 hours until 2 consecutive results in range. hPTT = 121 to 140 seconds: NO BOLUS DECREASE dose by 2 units/kg/hour ORDER repeat hPTT in 6 hours hPTT = 141 to 190 seconds: HOLD infusion for 1 hour DECREASE dose by 3 units/kg/hour ORDER repeat hPTT in 6 hours hPTT = greater than 190 X 1 reading: HOLD infusion for 1 hour DECREASE dose by 3 units/kg/hour ORDER repeat hPTT in 6 hours hPTT = greater than 190 X 2 readings: HOLD infusion Call physician for further direction HIGH ALERT MEDICATION., Heparin protocol selected: Standard Dose, Other Indications for heparin: Other (Comments), Please specify indication: Valve thrombus Handoff 08/20/2025 7:28 PM EST 22 Units/kg/hr 16.1 mL/hr New Bag 08/20/2025 5:27 PM EST 22 Units/kg/hr 16.1 mL/h r Handoff 08/20/2025 7:14 AM EST 22 Units/kg/hr 16.1 mL/h r ipratropium-albuteroL (DUO-NEB) 0.5 mg-3 mg(2.5 mg base)/3 mL nebulizer solution 3 mL 3 mL, Nebulization, RT every 4 hours PRN, Wheezing, Starting on Tue08/16/25 at 0907 magnesium sulfate in D5W 100 mL 1 gram/100 mL IVPB 1 g 1 g, Intravenous, Administer over 60 Minutes, Once, On Tue08/18/25 at 0930, For 1 dose New 08/18/2025 10:50 AM EST 1 g 100 mL/hr magnesium sulfate in sterile water 50 mL IVPB 2 g 2 g, Intravenous, Administer over 120 Minutes, Once, On Tue08/20/25 at 0800, For 1 dose New 08/20/2025 8:31 AM EST 2 g 25 mL/hr metoprolol tartrate (LOPRESSOR) tablet 25 mg 25 mg, Oral, Once, On Tue08/19/25 at 0930, For 1 dose Given 08/19/2025 9:27 AM EST 25 mg metoprolol tartrate (LOPRESSOR) tablet 50 mg 50 mg, Oral, 2 times daily, First dose on Tue08/15/25 at 2100 Given 08/21/2025 8:24 AM EST 50 mg Given 08/20/2025 8:30 PM EST 50 mg Given 08/20/2025 8:20 AM EST 50 mg mometasone (ASMANEX) 220 mcg/ actuation (14) inhaler 1 puff 1 puff, Inhalation, RT Daily, First dose on Tue08/15/25 at 1913, Administer 1 inhalation with 1 inhalation of ANORO ELLIPTA to = 1 inhalation of TRELEGY ELLIPTA Given 08/21/2025 8:10 AM EST 1 puff Given 08/20/2025 9:27 AM EST 1 puff Given 08/19/2025 11:28 AM EST 1 puff OMNIPAQUE (iohexol) 350 mg iodine/mL 100 mL 100 mL, Intravenous, IMG once as needed, contrast, Starting on 08/19/25 at 1115, For 1 dose Given 08/19/2025 10:59 AM EST 80 mLs OMNIPAQUE (iohexol) 350 mg iodine/mL 150 mL 150 mL, Intravenous, IMG once as needed, contrast, Starting on Sofía 08/15/25 at 1702, For 1 dose Given 08/15/2025 4:33 PM EST 125 mLs pantoprazole (PROTONIX) EC tablet 40 mg 40 mg, Oral, Daily, First dose on Tue08/16/25 at 0900, Do Not Crush Given 08/21/2025 8:24 AM EST 40 mg Given 08/20/2025 8:20 AM EST 40 mg Given 08/19/2025 8:25 AM EST 40 mg potassium chloride (KLOR-CON M20) CR tablet 20 mEq 20 mEq, Oral, Once, On Tue08/18/25 at 1330, For 1 dose, FOR PATIENTS UNABLE TO SWALLOW LARGE TABLETS, but can take liquids orally: Place tablet(s) in room temperature or warm water (@ 2-4 ounces) and allow to disintegrate for ~ 30 seconds. Then stir well and administer immediately before particles settle. NOTE: not all particles will go into solution. DO NOT CRUSH or CHEW; TABLET(S) MAY BE SPLIT Given 08/18/2025 1:24 PM EST 20 mEq potassium chloride (KLOR-CON M20) CR tablet 40 mEq 40 mEq, Oral, Once, On Tue08/16/25 at 0900, For 1 dose, FOR PATIENTS UNABLE TO SWALLOW LARGE TABLETS, but can take liquids orally: Place tablet(s) in room temperature or warm water (@ 2-4 ounces) and allow to disintegrate for ~ 30 seconds. Then stir well and administer immediately before particles settle. NOTE: not all particles will go into solution. DO NOT CRUSH or CHEW; TABLET(S) MAY BE SPLIT Given 08/16/2025 9:13 AM EST 40 mEq potassium chloride (KLOR-CON M20) CR tablet 40 mEq 40 mEq, Oral, Once, On 08/18/25 at 0930, For 1 dose, FOR PATIENTS UNABLE TO SWALLOW LARGE TABLETS, but can take liquids orally: Place tablet(s) in room temperature or warm water (@ 2-4 ounces) and allow to disintegrate for ~ 30 seconds. Then stir well and administer immediately before particles settle. NOTE: not all particles will go into solution. DO NOT CRUSH or CHEW; TABLET(S) MAY BE SPLIT Given 08/18/2025 10:38 AM EST 40 mEq potassium chloride (KLOR-CON) packet 20 mEq 20 mEq, Oral, Once, On 08/18/25 at 2330, For 1 dose, Mix 1 packet with 4 oz (120 mL) of water or a beverage. For a 10 mEq dose withdraw 2 oz (60 mL). For a 20 mEq dose withdraw 4 oz (120 mL). Administer via NG/feeding tube. Given 08/18/2025 10:56 PM EST 20 mEq potassium chloride (KLOR-CON) packet 40 mEq 40 mEq, Oral, Once, On 08/18/25 at 1930, For 1 dose, Mix 1 packet with 4 oz (120 mL) of water or a beverage. For a 10 mEq dose withdraw 2 oz (60 mL). For a 20 mEq dose withdraw 4 oz (120 mL). Administer via NG/feeding tube. Given 08/18/2025 8:31 PM EST 40 mEq torsemide (DEMADEX) tablet 20 mg 20 mg, Oral, Daily, First dose on 08/19/25 at 1000 Given 08/21/2025 8:24 AM EST 20 mg Given 08/20/2025 8:20 AM EST 20 mg Given 08/19/2025 9:27 AM EST 20 mg traZODone (DESYREL) tablet 50 mg 50 mg, Oral, At Bedtime (2100), First dose (after last modification) on Sofía 08/15/25 at 2335 Given 08/20/2025 8:30 PM EST 50 mg Given 08/19/2025 8:49 PM EST 50 mg Given 08/18/2025 10:56 PM EST 50 mg umeclidinium-vilanteroL (ANORO ELLIPTA) 62.5-25 mcg/actuation powder for inhalation DsDv 1 puff 1 puff, Inhalation, RT Daily, First dose on Sofía 08/15/25 at 1913, Administer 1 inhalation with 1 inhalation of mometasone (ASMANEX) 220 mcg to = 1 inhalation of TRELEGY ELLIPTA Given 08/21/2025 8:10 AM EST 1 p uff Given 08/20/2025 9:27 AM EST 1 puff Given 08/19/2025 11:28 AM EST 1 puff warfarin (COUMADIN/JANTOVEN) tablet 5 mg 5 mg, Oral, Daily17, First dose on 08/19/25 at 1700, INDICATION FOR ANTITHROMBOTIC THERAPY: LV thrombus, INR Goal: 2 - 3 Given 08/20/2025 6:03 PM EST 5 mg Given 08/19/2025 4:58 PM EST 5 mg documented in this encounter Active and Recently Administered Medications Times are shown in EST. Scheduled Medication Order 08/19/2025 08/20/2025 08/21/2025 aspirin chewable tablet 81 mg 81 mg, Oral, Daily, First dose on Sofía 08/15/25 at 1913 0825 (Given - Provider: Belinda Roman RN) 0820 (Given - Provider: Ian Varghese, DAYRON) 0824 (Given - Provider: Evie Brown, DAYRON) atorvastatin (LIPITOR) tablet 80 mg 80 mg, Oral, Daily, First dose on Sofía 08/15/25 at 1913 0825 (Given - Provider: Belinda Roman RN) 0820 (Given - Provider: Ian Varghese, DAYRON) 0824 (Given - Provider: Evie Brown, DAYRON) cetirizine (ZYRTEC) tablet 10 mg 10 mg, Oral, Daily, First dose on Sofía 08/15/25 at 1913, Therapeutic Interchange: levocetirizine (XYZAL) tablet 5 mg po DAILY = cetirizine (ZYRTEC) tablet 10 mg po DAILY 0825 (Given - Provider: Belinda Roman RN) 0820 (Given - Provider: Ian Varghese, DAYRON) 0824 (Given - Provider: Evie Brown, DAYRON) enoxaparin (LOVENOX) syringe 60 mg/0.6 mL 60 mg (rounded from 68.9 mg = 1 mg/kg 68.9 kg), Subcutaneous, Every 12 hours, First dose on Tue08/20/25 at 2000, For patient weight range 30 - 129 kg (66 - 285 lbs). 2028 (Given - Provider: Katherine Caruso RN) 823 (Given - Provider: Evie Brown, RN) magnesium sulfate in sterile water 50 mL IVPB 2 g (COMPLETED) 2 g, Intravenous, Administer over 120 Minutes, Once, On Tue08/20/25 at 0800, For 1 dose 0831 (New Bag - Provider: Ian Varghese, DAYRON) metoprolol tartrate (LOPRESSOR) tablet 25 mg (COMPLETED) 25 mg, Oral, Once, On Tue08/19/25 at 0930, For 1 dose 926 (Given - Provider: Belinda Roman RN) metoprolol tartrate (LOPRESSOR) tablet 50 mg 50 mg, Oral, 2 times daily, First dose on Tue08/15/25 at 2100 0825 (Given - Provider: Belinda Roman RN)2048 (Given - Provider: Katherine Caruso RN) 08 (Given - Provider: Ian Varghese, DAYRON)2029 (Given - Provider: Katherine Caruso RN) 08 (Given - Provider: Evie Brown, DAYRON) mometasone (ASMANEX) 220 mcg/ actuation (14) inhaler 1 puff(Linked Group 1) 1 puff, Inhalation, RT Daily, First dose on Tue08/15/25 at 1913, Administer 1 inhalation with 1 inhalation of ANORO ELLIPTA to = 1 inhalation of TRELEGY ELLIPTA 1128 (Given - Provider: Saray Amor, [employer]) 09 (Given - Provider: Mitch Yang, [employer]) 08 (Given - Provider: Annamarie Obrien [employer]) pantoprazole (PROTONIX) EC tablet 40 mg 40 mg, Oral, Daily, First dose on Tue08/16/25 at 0900, Do Not Crush 08 (Given - Provider: Belinda Roman RN) 08 (Given - Provider: Ian Varghese, DAYRON) 0824 (Given - Provider: Evie Brown, DAYRON) torsemide (DEMADEX) tablet 20 mg 20 mg, Oral, Daily, First dose on Tue08/19/25 at 1000 0927 (Given - Provider: Belinda Roman RN) 0820 (Given - Provider: Ian Varghese, DAYRON) 0824 (Given - Provider: Evie Brown, DAYRON) traZODone (DESYREL) tablet 50 mg 50 mg, Oral, At Bedtime (2100), First dose (after last modification) on Sofía 08/15/25 at 2335 2049 (Given - Provider: Katherine Caruso, RN) 2030 (Given - Provider: Katherine Caruso, DAYRON) umeclidinium-vilanteroL (ANORO ELLIPTA) 62.5-25 mcg/actuation powder for inhalation DsDv 1 puff(Linked Group 1) 1 puff, Inhalation, RT Daily, First dose on Sofía 08/15/25 at 1913, Administer 1 inhalation with 1 inhalation of mometasone (ASMANEX) 220 mcg to = 1 inhalation of TRELEGY ELLIPTA 1128 (Given - Provider: Saray Amor, [employer]) 0927 (Given - Provider: Mitch Yang, [employer]) 0810 (Given - Provider: Annamarie Obrien RRT) warfarin (COUMADIN/JANTOVEN) tablet 5 mg 5 mg, Oral, Daily17, First dose on Tue08/19/25 at 1700, INDICATION FOR ANTITHROMBOTIC THERAPY: LV thrombus, INR Goal: 2 - 3 1658 (Given - Provider: Belinda Roman RN) 1803 (Given - Provider: Ian Varghese, DAYRON) Continuous Medication Order 08/19/2025 08/20/2025 08/21/2025 heparin 88119 units in 0.45% NaCl 250 mL IV infusion ()(Linked Group 2) Intravenous, at 13.1 mL/hr, Continuous, Starting on Sofía 08/15/25 at 1853, For 5 days 2 hours, Goal hPTT 90-120 seconds hPTT = less than 36 seconds: BOLUS 80 unit/kg/ IV INCREASE dose by 4 units/kg/hour ORDER repeat hPTT in 6 hours hPTT = 36 to 89 seconds: BOLUS 40 unit/kg/ IV INCREASE dose by 2 units/kg/hour ORDER repeat hPTT in 6 hours hPTT = 90 to 120 seconds: NO BOLUS CONTINUE current dose ORDER repeat hPTT in 6 hours until there are 2 consecutive results in range. When 2 consecutive hPTT are at goal, then monitor hPTT daily (minimum). If the hPTT is out of range after this, then resume checking hPTT every 6 hours until 2 consecutive results in range. hPTT = 121 to 140 seconds: NO BOLUS DECREASE dose by 2 units/kg/hour ORDER repeat hPTT in 6 hours hPTT = 141 to 190 seconds: HOLD infusion for 1 hour DECREASE dose by 3 units/kg/hour ORDER repeat hPTT in 6 hours hPTT = greater than 190 X 1 reading: HOLD infusion for 1 hour DECREASE dose by 3 units/kg/hour ORDER repeat hPTT in 6 hours hPTT = greater than 190 X 2 readings: HOLD infusion Call physician for further direction HIGH ALERT MEDICATION., Heparin protocol selected: Standard Dose, Other Indications for heparin: Other (Comments), Please specify indication: Valve thrombus 0713 (Handoff - Provider: Judi Reeves RN)0900 (New Bag - Provider: Belinda Roman, DAYRON)1933 (Handoff - Provider: Belinda Roman, DAYRON) 0110 (New Bag - Provider: Katherine Caruso, DAYRON)0714 (Handoff - Provider: Katherine Caruso, DAYRON)1727 (New Bag - Provider: Ian Varghese, DAYRON)1928 (Handoff - Provider: Ian Varghese, DAYRON)2020 (Stopped - Provider: Katherine Caruso RN) PRN Medication Order 08/19/2025 08/20/2025 08/21/2025 acetaminophen (TYLENOL) tablet 650 mg 650 mg, Oral, Every 6 hours PRN, moderate pain (NRS 4-6) or if patient is non-communicative (CPOT 3-5), mild pain (NRS 1-3); no comparable CPOT score, Starting on 08/17/25 at 0705, Maximum dose of acetaminophen is 4000 mg (4 grams) from all sources in 24 hours. albuterol ([id number]-VGAWAHME) 90 mcg/actuation inhaler 2 puff 2 puff, Inhalation, RT every 6 hours PRN, Wheezing, Shortness of Breath, Starting on Sofía 08/15/25 at 1940, SHAKE WELL guaiFENesin (ROBITUSSIN) 100 mg/5 mL syrup 100 mg 100 mg, Oral, Every 4 hours PRN, Congestion, Starting on 08/18/25 at 0816 0831 (Given - Provider: Belinda Roman RN)2047 (Given - Provider: Katherine Caruso, RN) 907 (Given - Provider: Ian Varghese, RN)2128 (Given - Provider: Katherine Caruso, DAYRON) ipratropium-albuteroL (DUO-NEB) 0.5 mg-3 mg(2.5 mg base)/3 mL nebulizer solution 3 mL 3 mL, Nebulization, RT every 4 hours PRN, Wheezing, Starting on Tue08/16/25 at 0907 OMNIPAQUE (iohexol) 350 mg iodine/mL 100 mL (COMPLETED) 100 mL, Intravenous, IMG once as needed, contrast, Starting on Tue08/19/25 at 1115, For 1 dose 1059 (Given - Provider: Endy Bragg, RT) Linked Groups Order Group 1: umeclidinium-vilanteroL (ANORO ELLIPTA) 62.5-25 mcg/actuation powder for inhalation DsDv 1 puffJump to med 1 puff, Inhalation, RT Daily, First dose on Tue08/15/25 at 1913, Administer 1 inhalation with 1 inhalation of mometasone (ASMANEX) 220 mcg to = 1 inhalation of TRELEGY ELLIPTA And mometasone (ASMANEX) 220 mcg/ actuation (14) inhaler 1 puffJump to med 1 puff, Inhalation, RT Daily, First dose on Tue08/15/25 at 1913, Administer 1 inhalation with 1 inhalation of ANORO ELLIPTA to = 1 inhalation of TRELEGY ELLIPTA Group 2: heparin (porcine) injection 6,000 Units () 6,000 Units (rounded from 5,840 Units = 80 Units/kg 73 kg), Intravenous, Every 6 hours PRN, For low hPTT = less than 36 seconds, Starting on Tue08/15/25 at 1852, For 5 days 2 hours, For low hPTT = less than 36 seconds; BOLUS 80 unit/kg IV (MAX 10,000 units) per hPTT goal 90-120 seconds protocol And heparin (porcine) injection 3,000 Units () 3,000 Units (rounded from 2,920 Units = 40 Units/kg 73 kg), Intravenous, Every 6 hours PRN, For low hPTT = 36 to 89 seconds, Starting on 08/15/25 at 1852, For 5 days 2 hours, For low hPTT = 36 to 89 seconds; BOLUS 40 units/kg (MAX 10,000 units) Per hPTT goal 90-120 seconds protocol And heparin 54319 units in 0.45% NaCl 250 mL IV infusion ()Jump to med Intravenous, at 13.1 mL/hr, Continuous, Starting on Sofía 08/15/25 at 1853, For 5 days 2 hours, Goal hPTT 90-120 seconds hPTT = less than 36 seconds: BOLUS 80 unit/kg/ IV INCREASE dose by 4 units/kg/hour ORDER repeat hPTT in 6 hours hPTT = 36 to 89 seconds: BOLUS 40 unit/kg/ IV INCREASE dose by 2 units/kg/hour ORDER repeat hPTT in 6 hours hPTT = 90 to 120 seconds: NO BOLUS CONTINUE current dose ORDER repeat hPTT in 6 hours until there are 2 consecutive results in range. When 2 consecutive hPTT are at goal, then monitor hPTT daily (minimum). If the hPTT is out of range after this, then resume checking hPTT every 6 hours until 2 consecutive results in range. hPTT = 121 to 140 seconds: NO BOLUS DECREASE dose by 2 units/kg/hour ORDER repeat hPTT in 6 hours hPTT = 141 to 190 seconds: HOLD infusion for 1 hour DECREASE dose by 3 units/kg/hour ORDER repeat hPTT in 6 hours hPTT = greater than 190 X 1 reading: HOLD infusion for 1 hour DECREASE dose by 3 units/kg/hour ORDER repeat hPTT in 6 hours hPTT = greater than 190 X 2 readings: HOLD infusion Call physician for further direction HIGH ALERT MEDICATION., Heparin protocol selected: Standard Dose, Other Indications for heparin: Other (Comments), Please specify indication: Valve thrombus documented in this encounter Additional Health Concerns Infection Onset Date Last Indicated Resolved Time Rule Out COVID-19 08/16/2025 08/16/2025 08/16/2025 11:43 AM EST documented as of this encounter Care Teams Assistant 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
--- OUTSIDE RECORDS SUMMARY | 2025-08-16 23:59 | XMS_ITS | Encounter Summary ---
Author Organization [facility] [place] Address [address] [place] [address] Care Team Providers Care Dietary Internship Name Role Phone Pcp, No Primary Care Provider [phone] Source Comments This information has been disclosed [...] release of HIV test results or diagnoses. [id number] Health Encounter Details Date Type Department Care Team (Late st Contact Info) Description 08/16/2025 11:59 PM EST Anesthesia Event [facility] Electrophysiology Lab [address] [place] [phone] Albert Em MD [address] [place] [phone] Anesthesia Record Procedure Summary Procedure Name Responsible Anesthesiologist Anesthesia Start Time Anesthesia Stop Time FIDEL Events No events on file. Meds * Agents No agents on file. * Blood No blood administrations on file. Lines, Drains, and Airways Type Details Placement Removal Peripheral IV 08/20/25; 1056; 20 G ; Anterior, Proximal, Right; Forearm; Chlorhexidine; Tolerated well 08/20/25 1056 by Ian Varghese RN documented in this encounter Social History Tobacco Use Types Packs/Day Years Used Date Smoking Tobacco: Every Day Cigarettes Alcohol Use Standard Drinks/Week Comments Yes 6 [...] any time in the past 12 m [facility], were you homeless or living in a assisted (including now)? No 08/16/2025 Utilities Answer Date Recorded In the past 12 months has th e [employer], gas, oil, or water company threatened to [...] Diagnoses Not on filedocumented in this encounter Care Teams Dietary Internship Relationship 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
--- OUTSIDE RECORDS SUMMARY | 2025-08-30 09:01 | XMS_ITS | Clinical Summary ---
Author Organization Healthcare Address [address] [place] [address] Care Team Providers Care Marble Finisher Name Role Phone Pcp, No Primary Care [...] 03/25/2023 Immunizations Immunization Administration Dates Next Due Pfizer-BioNTiAdvize COVID-19 Vac cine (Bishop Cap) 12+ years [...] drink first t ney in the morning (EYE-PINSETTER MECHANIC AUTOMATIC) to steady your nerves or to get [...] 2015 UKY-Zoster Vaccines (1 of 2) 2015 [id number] Vaccine (3 - 2024- season) 2025 10/26/2021, [...] this topic Medical Devices Implanted Type Area Perforating Machine Operator Device Identifier Shelf Expiration Date Model / Serial / Lot Valve Evolut Pro Transaortic 26mm - [id number] Implanted:Qty: 1 on 03/31/2023 by Sergio Faith MD at [facility] [id number] 11/09/2023 EVPROPLU S26 US / [id number] / [id number] Procedures Procedure Name Priority Date/Time Associated Diagnosis [...] Adults <6.0% Children and Adolescents <7.5% Source: [place] [employer]. Standards of medical care in diabetes,2017. Diabetes Care.2017:40 (suppl 1):S1-S135. HbA1c assay performed by an ion-exchange chromatography method that is certified traceable to the DCCT. So Jeffries APRN LAB BLOOD ORDERABLES Final R esult [facility] [address] [place] [id number] from Last 3 Months or Most Recently Relevant to Health Maintenance Insurance [employer] [address] Advance Directives * Full Code (Latest Code Status on File) Date Activated Date Inactivated Comments 03/31/2023 4:10 PM 04/01/2023 4:50 PM Question Answer Comments Patient has decision-making capacity? Yes * Full Code Date Activated Date Inactivated Comments 03/23/2023 5:20 PM 03/25/2023 1:24 PM Question Answer Comments Patient has decision-making capacity? Yes Care Teams Marble Finisher Relationship Specialty Start Date End Date Pcp, Letty [address] [place] [address] PCP - General Family Medicine 03/24/22
--- OUTSIDE RECORDS SUMMARY | 2025-08-30 09:01 | XMS_ITS | Encounter Summary ---
Author Organization Healthcare Address [address] [place] [id number] Care Team Providers Care Welt Wheeler Name Role Phone Pcp, No Primary Care Provider Unavailabl e Reason for Visit * Reason Comments Med Refill Encounter Details Date Type Department Care Team ([facility] st Contact Info) Description 05/03/2024 Refill [facility] [place] [address] [facility], [address] [place] [address] Melva Modi PA [address] [place] [address] Social History Tobacco Use Types [...] drink first t ney in the morning (EYE-FIBERGLASS BOAT FINISHER) to steady your nerves or to get [...] documented as of this encounter Care Teams Welt Wheeler Relationship Specialty Start Date End Date Pcp, [place] [address] PCP - General Family Medicine 03/24/22 documented as of this encounter
--- OUTSIDE RECORDS SUMMARY | 2025-08-30 09:01 | XMS_ITS | Clinical Summary ---
Author Organization [facility] Address [address] [place] [address] Phone Care Team Providers Care Airplane Pilot Name Role Phone Sergio Hurtado MD Primary Care Provider [phone] Allergies Active Allergy Reactions Criticality Noted Date [...] Diagnosed Date Coronary artery disease invo lving yurok coronary artery of yurok heart without angina pectoris 04/15/2023 Abdominal aortic [...] patient's age to complete this topic Insurance [facility] [id number] [facility] [place] [id number] [place] [id number] [facility] Advance Directives For more information, please contact: [phone] * Full Code (Latest Code Status on File) Date Activated Date Inactivated Comments 04/15/2023 12:50 AM 04/16/2023 9:26 PM Care Teams Airplane Pilot Relationship Specialty Start Date End Date Sergio Hurtado MD [address] [facility] [address] [place] [address] PCP - General Family Medicine 04/14/23
--- OUTSIDE RECORDS SUMMARY | 2025-08-30 09:01 | XMS_ITS | Encounter Summary ---
Author Organization Healthcare Address [address] [place] [id number] Care Team Providers Care Pastoral Worker Name Role Phone Pcp, No Primary Care Provider Unavailabl e Reason for Visit * Reason Comments Med Refill Encounter Details Date Type Department Care Team ([facility] st Contact Info) Description 09/06/2023 Refill [facility] [place] [address] [facility], [address] [place] [address] Melva Modi PA [address] [place] [address] Social History Tobacco Use Types [...] drink first t ney in the morning (EYE-FIELD CARE COORDINATOR) to steady your nerves or to get [...] documented as of this encounter Care Teams Pastoral Worker Relationship Specialty Start Date End Date Pcp, [place] [address] PCP - General Family Medicine 03/24/22 documented as of this encounter
--- OUTSIDE RECORDS SUMMARY | 2025-08-30 09:02 | XMS_ITS | Encounter Summary ---
Author Organization [facility] Address [facility] [place] [address] Care Team Providers Care Internist Name Role Phone Pcp, No Primary Care [...] release of HIV test results or diagnoses. [id number] Encounter Details Date Type Department Care [...] any time in the past 12 m [facility], were you homeless or living in a detention (including now)? No 08/16/2025 Utilities Answer Date [...] on file documented as of this encounter Functional Status * Communicable Disease Screening Question Answer Date of Assessment Author Have you been in contact with someone who was sick? No / Unsure 08/15/2025 3:57 PM Sarah Casanova RN Do you have any of the following new or worsening symptoms? None of these 08/15/2025 3:57 PM Shandra Casanova RN * Travel Screening Question Answer Date of Assessment Author Have you traveled internatio latasha or domestically in the last month? No 08/15/2025 3:57 PM Shandra Burciaga Ch, RN documented as of this encounter Plan of Treatment Not on file documented as of this encounter Visit Diagnoses Not on filedocumented in this encounter Care Teams Internist Relationship 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
--- OUTSIDE RECORDS SUMMARY | 2025-08-30 09:03 | XMS_ITS | Clinical Summary ---
Author Organization [facility] Address [facility] [place] [address] Care Team Providers Care Break Out Man Name Role Phone Pcp, No Primary Care [...] therelease of HIV test results or diagnoses. [id number] Health Allergies Active Allergy Reactions Criticality Noted [...] ENT consult; pending - assess risk for IFDEL w/ hx of zenker diverticulum Assessment & [...] cardiology workup. Orders should be received from [facility] by morning. BNP 475 on 08/16/25; [...] follow-up scheduled for 08/26 at 9:15am at [facility]. They will connect pt to coumadin [...] cardiology workup. Orders should be received from [facility] by morning. BNP 475 on 08/16/25; [...] follow-up scheduled for 08/26 at 9:15am at [facility]. They will connect pt to coumadin [...] cardiology workup. Orders should be received from [facility] by morning. BNP 475 on 08/16/25. [...] cardiology workup. Orders should be received from [facility] by morning. BNP 475 on 08/16/25. [...] cardiology workup. Orders should be received from [facility] by morning. BNP 475 on 08/16/25. [...] cardiology workup. Orders should be received from [facility] by morning. - TTE + FIDEL [...] cardiology workup. Orders should be received from [facility] by morning. - TTE + FIDEL [...] cardiology workup. Orders should be received from [facility] by morning. BNP 475 on 08/16/25; [...] follow-up scheduled for 08/26 at 9:15am at [facility]. They will connect pt to coumadin [...] cardiology workup. Orders should be received from [facility] by morning. BNP 475 on 08/16/25; [...] follow-up scheduled for 08/26 at 9:15am at [facility]. They will connect pt to coumadin [...] cardiology workup. Orders should be received from [facility] by morning. BNP 475 on 08/16/25. [...] cardiology workup. Orders should be received from [facility] by morning. BNP 475 on 08/16/25. [...] cardiology workup. Orders should be received from [facility] by morning. BNP 475 on 08/16/25. [...] cardiology workup. Orders should be received from [facility] by morning. - TTE + FIDEL [...] cardiology workup. Orders should be received from [facility] by morning. - TTE + FIDEL [...] cardiology workup. Orders should be received from [facility] by morning. BNP 475 on 08/16/25; [...] follow-up scheduled for 08/26 at 9:15am at [facility]. They will connect pt to coumadin [...] cardiology workup. Orders should be received from [facility] by morning. BNP 475 on 08/16/25; [...] follow-up scheduled for 08/26 at 9:15am at [facility]. They will connect pt to coumadin [...] cardiology workup. Orders should be received from [facility] by morning. BNP 475 on 08/16/25. [...] cardiology workup. Orders should be received from [facility] by morning. BNP 475 on 08/16/25. [...] cardiology workup. Orders should be received from [facility] by morning. BNP 475 on 08/16/25. [...] cardiology workup. Orders should be received from [facility] by morning. - TTE + FIDEL [...] cardiology workup. Orders should be received from [facility] by morning. - TTE + FIDEL [...] AM EST): History of stent placement post MA in 2022, troponins here 19->17. Lactate 4.2- >2.5, possibly from decreased perfusion after being on esmolol and diltiazem drip. - Continue ASA, statin - Lipid panel; LDL 81, HDL 82, Triglycerides 124 Assessment & Plan (08/20/2025 6:31 AM EST): History of stent placement post MA in 2022, troponins here 19->17. Lactate 4.2- >2.5, possibly from decreased perfusion after being on esmolol and diltiazem drip. - Continue ASA, statin - Lipid panel; LDL 81, HDL 82, Triglycerides 124 Assessment & Plan (08/19/2025 8:39 AM EST): History of stent placement post MA in 2022, troponins here 19->17. Lactate 4.2- >2.5, possibly from decreased perfusion after being on esmolol and diltiazem drip. - Continue ASA, statin - Lipid panel; LDL 81, HDL 82, Triglycerides 124 Assessment & Plan (08/18/2025 7:21 AM EST): History of stent placement post MA in 2022, troponins here 19->17. Lactate 4.2- >2.5, possibly from decreased perfusion after being on esmolol and diltiazem drip. - Continue ASA, statin - Lipid panel; LDL 81, HDL 82, Triglycerides 124 Assessment & Plan (08/17/2025 9:18 AM EST): History of stent placement post MA in 2022, troponins here 19->17. Lactate 4.2- >2.5, possibly from decreased perfusion after being on esmolol and diltiazem drip. - Continue ASA, statin - Lipid panel; LDL 81, HDL 82, Triglycerides 124 Assessment & Plan (08/16/2025 9:11 AM EST): History of stent placement post MA in 2022, troponins here 19->17. Lactate 4.2- >2.5, possibly from decreased perfusion after being on esmolol and diltiazem drip. - Continue ASA, statin - Lipid panel; pending Assessment & Plan (08/15/2025 7:49 PM EST): History of stent placement post MA in 2022, troponins here 19->17. Lactate 4.2- >2.5, possibly from decreased perfusion after being on esmolol and diltiazem drip. - Continue ASA, statin Status post coronary artery stent placement 08/05 Assessment & Plan (08/21/2025 6:27 AM EST): History of stent placement post MA in 2022, troponins here 19->17. Lactate 4.2- >2.5, possibly from decreased perfusion after being on esmolol and diltiazem drip. - Continue ASA, statin - Lipid panel; LDL 81, HDL 82, Triglycerides 124 Assessment & Plan (08/20/2025 6:31 AM EST): History of stent placement post MA in 2022, troponins here 19->17. Lactate 4.2- >2.5, possibly from decreased perfusion after being on esmolol and diltiazem drip. - Continue ASA, statin - Lipid panel; LDL 81, HDL 82, Triglycerides 124 Assessment & Plan (08/19/2025 8:39 AM EST): History of stent placement post MA in 2022, troponins here 19->17. Lactate 4.2- >2.5, possibly from decreased perfusion after being on esmolol and diltiazem drip. - Continue ASA, statin - Lipid panel; LDL 81, HDL 82, Triglycerides 124 Assessment & Plan (08/18/2025 7:21 AM EST): History of stent placement post MA in 2022, troponins here 19->17. Lactate 4.2- >2.5, possibly from decreased perfusion after being on esmolol and diltiazem drip. - Continue ASA, statin - Lipid panel; LDL 81, HDL 82, Triglycerides 124 Assessment & Plan (08/17/2025 9:18 AM EST): History of stent placement post MA in 2022, troponins here 19->17. Lactate 4.2- >2.5, possibly from decreased perfusion after being on esmolol and diltiazem drip. - Continue ASA, statin - Lipid panel; LDL 81, HDL 82, Triglycerides 124 Assessment & Plan (08/16/2025 9:11 AM EST): History of stent placement post MA in 2022, troponins here 19->17. Lactate 4.2- >2.5, possibly from decreased perfusion after being on esmolol and diltiazem drip. - Continue ASA, statin - Lipid panel; pending Assessment & Plan (08/15/2025 7:49 PM EST): History of stent placement post MA in 2022, troponins here 19->17. Lactate 4.2- [...] Plan (08/21/2025 6:27 AM EST): Transferred to [facility] for concern of aortic dissection, was sent [...] Plan (08/20/2025 6:31 AM EST): Transferred to [facility] for concern of aortic dissection, was sent [...] Plan (08/19/2025 8:39 AM EST): Transferred to [facility] for concern of aortic dissection, was sent [...] Plan (08/18/2025 7:21 AM EST): Transferred to [facility] for concern of aortic dissection, was sent [...] Plan (08/17/2025 9:18 AM EST): Transferred to [facility] for concern of aortic dissection, was sent [...] Plan (08/16/2025 9:11 AM EST): Transferred to [facility] for concern of aortic dissection, was sent [...] Plan (08/15/2025 7:49 PM EST): Transferred to [facility] for concern of aortic dissection, was sent with an esmolol and diltiazem drip. Repeat imaging here showed no evidence of dissection, CT Surgery would still like to have outpatient follow-up for her ascending aortic aneurysm which is below threshold for elective surgical repair. - Follow-up outpatient CT surgery Encounters Date Type Department Care Team Description 08/16/2025 11:59 PM EST Anesthesia Event [facility] Electrophysiology Lab [address] [place] [address] Albert Em MD 08/15/2025 3:57 PM EST - 08/21/2025 11:48 AM EST Hospital Encounter [facility] [address] [place] [address] Amaris Mary MD Adhikari, Soumya, MD Crowley, Anisiia, MD Thrombus (Primary Dx); S/P TAVR (transcatheter aortic valve replacement); Acute on chronic diastolic heart failure (CMS-HCC); Zenker's (hypopharyngeal) diverticulum; Abnormal CT scan of heart Discharge Disposition: Home or Self Care WITHOUT Home Care Services 08/15/2025 Travel 08/15/2025 Chart Note [facility] [employer] [employer] [address] [place], [place] [id number] Rik Jolly IV, MD I received a [...] any time in the past 12 m [facility], were you homeless or living in [...] PCV) 1984 Cervical Cancer Screening/Pa p Smear (QuantiaMDhart) 1995 Mammogram (MyChart) 2005 Cologuard (FIT-DNA) 2010 [...] MD LAB BLOOD ORDERABLES Final Re sult [facility] [address] * (ABNORMAL) Renal Function Panel w/EGFR (08/21/2025 5:23 AM EST) Only the most recent of9 resultswithin the time period is included. Sodium 133 133 - 146 mmol/L 08/21/2025 6:19 AM EST [facility] Potassium 3.8 3.5 - 5.3 mmol/L 08/21/2025 6:19 AM EST [facility] Chloride 97(L) 98 - 110 mmol/L 08/21/2025 6:19 AM EST [facility] CO2 27 21 - 33 mmol/L 08/21/2025 6:19 AM EST [facility] Comment:High lactate dehydro genase concentrations [...] - 25 mg/dL 08/21/2025 6:19 AM EST [facility] Creatinine 0.52(L) 0.60 - 1.30 mg/dL 08/21/2025 6:19 AM EST [facility] Glucose 230(H) 70 - 100 mg/dL 08/21/2025 6:19 AM EST [facility] Calcium 9.0 8.6 - 10.3 mg/dL 08/21/2025 6:19 AM EST [facility] Phosphorus 4.4 2.1 - 4.7 mg/dL 08/21/2025 6:19 AM EST [facility] Albumin 3.9 3.5 - 5.7 g/dL 08/21/2025 6:19 AM EST [facility] Osmolality, Calculated 283 278 - 305 mOsm/kg 08/21/2025 6:19 AM EST [facility] EGFR >90 08/21/2025 6:19 AM EST [facility] Comment: As of 2021, the estimated [...] MD LAB BLOOD ORDERABLES Final Re sult [facility] [address] * (ABNORMAL) CBC (08/21/2025 5:23 AM EST) Only the most recent of8 resultswithin the time period is included. WBC 8.5 3.8 - 10.8 10E3/uL 08/21/2025 5:50 AM EST [facility] RBC 5.07 3.80 - 5.10 10E6/uL 08/21/2025 5:50 AM EST [facility] Hemoglobin 16.2(H) 11.7 - 15.5 g/dL 08/21/2025 5:50 AM EST [facility] Hematocrit 47.0(H) 35.0 - 45.0 % 08/21/2025 5:50 AM EST [facility] MCV 92.6 80.0 - 100.0 fL 08/21/2025 5:50 AM EST [facility] MCH 32.0 27.0 - 33.0 pg 08/21/2025 5:50 AM EST [facility] MCHC 34.6 32.0 - 36.0 g/dL 08/21/2025 5:50 AM EST [facility] RDW 14.2 11.0 - 15.0 % 08/21/2025 5:50 AM EST [facility] Platelets 151 140 - 400 10E3/uL 08/21/2025 5:50 AM EST [facility] MPV 8.4 7.5 - 11.5 fL 08/21/2025 5:50 AM EST [facility] Whole Blood 08/21/2025 5:23 AM EST 08/21/2025 5:35 AM EST us Marie Davila MD LAB BLOOD ORDERABLES Final Re sult [facility] [address] * Magnesium (08/21/2025 5:23 AM EST) Only the most recent of8 resultswithin the time period is included. Magnesium 2.1 1.5 - 2.5 mg/dL 08/21/2025 6:19 AM EST [facility] Plasma 08/21/2025 5:23 AM EST 08/21/2025 5:35 AM EST Marie Davila MD LAB BLOOD ORDERABLES Final Re sult Performing Organization Address City/[facility]/ZIP Co de Phone Number [facility] [address] [facility] * aPTT-Heparin (08/20/2025 5:31 AM EST) Only the most recent of9 resultswithin the time period is included. hPTT 114.0 90.0 - 120.0 seconds 08/20/2025 6:07 AM EST [facility] Plasma 08/20/2025 5:31 AM EST 08/20/2025 5:38 AM EST Ousmane Palumbo MD LAB BLOOD ORDERABLES Fi nal Result Performing Organization Address [facility] Co de Phone Number [facility] [address] [facility] * Sed Rate (08/20/2025 5:31 AM EST) Only the most recent of2 resultswithin the time period is included. Sed Rate 29 0 - 30 mm/hr 08/20/2025 6:00 AM EST [facility] Whole Blood 08/20/2025 5:31 AM EST 08/20/2025 5:38 AM EST Marie Davila MD LAB BLOOD ORDERABLES Final Re sult Performing Organization Address City/[facility] Co de Phone Number [facility] [address] [facility] * (ABNORMAL) C-Reactive Protein (08/20/2025 5:31 AM EST) Only the most recent of2 resultswithin the time period is included. CRP 11.6(H) 1.0 - 10.0 mg/L 08/20/2025 6:04 AM EST [facility] Plasma 08/20/2025 5:31 AM EST 08/20/2025 5:38 AM EST us Marie Davila MD LAB BLOOD ORDERABLES Final Re sult [facility] [address] [place] [address], [facility] * CT Thoracic Structures-Rad Interp (08/19/2025 10:59 [...] a [address] scanner, a preliminary american studies professor study was obtained. Following administration of intravenous [...] a [address] scanner, a preliminary american studies professor study wasobtained. Following administration of intravenous contrast, [...] a [address] scanner, a preliminary american studies professor study was obtained. Following administration of intravenous [...] a [address] scanner, a preliminary american studies professor study wasobtained. Following administration of intravenous contrast, [...] - 100 mg/dL 08/18/2025 11:45 PM EST [facility] Blood 08/18/2025 11:4 4 PM EST 08/18/2025 11:45 PM EST Liza Forrest MD POINT OF CARE TEST ORDERABLES Final Result Performing Organization Address [facility] Co de Phone Number [facility] [address] [facility]. [address] * B Natriuretic Peptide (08/18/2025 5:50 PM EST) Only the most recent of2 resultswithin the time period is included. BNP 79 0 - 100 pg/mL 08/18/2025 6:52 PM EST [facility] Comment: BNP may be increased in the presence of sacubitril/valsartan (Entresto). Please interpret accordingly. Plasma 08/18/2025 5:50 PM EST 08/18/2025 6:14 PM EST Narrative [facility] - 08/18/2025 6:52 PM EST The presence of high concentrations of biotin may cause falsely lowered BNP results. Biotin interference may be seen if an individual is taking >5 mg biotin per day. Interpret BNP results in the context of the patient's clinical presentation. Chely Andrews DO LAB BLOOD ORDERABLES Final Result Performing Organization Address [facility] Co de Phone Number [facility] [address] [facility] * Davian MPN JAK2 [id number] w/Reflex (Exon 12-13, CALR, MPL) (08/18/2025 9:17 AM EST) Davian MPN JAK2 [id number] w/Reflex (Exon 12-13, CALR, MPL) See Scanned Report in EPIC Path tab. 08/27/2025 3:05 PM EST [facility] Whole Blood BLOOD SPECIMEN / Unknown 08/18/2025 9:17 AM EST 08/27/2025 3:05 PM EST Chely Andrews DO PATHOLOGY/CYTOLOGY OR DERABLES Final Result [facility] [address] * ECG 12 lead (MUSE) (08/17/2025 1:04 PM EST) 08/17/2025 1:04 PM EST Narrative MUSE - 08/18/2025 9:53 PM EST Ventricular Rate: 72 BPM Atrial Rate: 72 BPM P-R Interval: 130 ms QRS Duration: 84 ms QT: 432 ms QTc: 473 ms P Romance: 27 degrees R Romance: -1 degrees T Romance: 26 degrees Diagnosis Line: NORMAL SINUS RHYTHM NONSPECIFIC ST-T SEGMENT CHANGES ABNORMAL ECG Confirmed by Zahraa Diehl ([id number]) on 08/18/2025 9:53:47 PM us Quita Ricketts MD ECG ORDERABLES Final Result Performing Organization Address City/[facility]/ZIP Co de Phone Number MUSE * Lipid Profile (08/17/2025 5:43 AM EST) Non-HDL Cholesterol, Calculated 106 0 - 129 mg/dL 08/17/2025 7:11 AM EST [facility] Comment: Desirable: < 130 mg/dL Above Desirable: 130-159 mg/dL Borderline High: 160-189 mg/dL High: 190-219 mg/dL Very High: > 219 mg/dL Cholesterol, Total 188 0 - 200 mg/dL 08/17/2025 7:11 AM EST [facility] Triglycerides 124 10 - 149 mg/dL 08/17/2025 7:11 AM EST [facility] HDL 82 60 - 92 mg/dL 08/17/2025 7:11 AM EST [facility] Comment: LIPID PROFILE INTERPRETATION CHOLESTEROL,TOTAL(mg/dL) DESIRABLE: [...] LDL Cholesterol 81 mg/dL 7:11 AM EST [facility] Plasma 08/17/2025 5:43 AM EST 08/17/2025 6:18 AM EST Narrative [facility] - 08/17/2025 7:11 AM EST LDL cholesterol calculated using the Friedewald equation. us Heather Malu PharmD LAB BLOOD ORDERABLES Final Result [facility] [address] [place] [address] * ECHO COMPLETE (08/16/2025 4:00 PM EST) Anatomical Region Laterality Modality Chest Ultrasound 08/16/2025 3:42 PM EST Narrative 08/16/2025 4:41 PM EST * [facility]* [address] [place] [address] Transthoracic Echocardiogram Patient: Nellie Alves Room: 6354 Height: 60in MR Number: [id number] : 1965 Weight: 151lb Account: [id number] Gender: F BP: 100 / 68 Study Date: 08/16/2025 Age: 59 BSA: 1.66m^2 Referring physician: Chato Boone Interpreting physician: Indra Mariscal PERFORMING Indra Mariscal BUCKET PUSHER Christianne Becker ORDERING Chato Boone REFERRING Chato Boone ATTENDING Liza Forrest MD ADMITTING Liza Forrest MD Procedure:TRANSTHORACIC ECHO (TTE) Order: Accession COMPLETE Number:[id number] Indications: Valve disorders/disease -aortic stenosis (I35.0). PMH: [...] specified reference range. Reviewed and confirmed by Davey, Indra [id number] Procedure Note Rosendo Mariscal MD - 08/16/2025 * [facility]* [address] [place] [address] Transthoracic Echocardiogram Patient: Nellie Alves Room: 6354 Height: 60in MR Number: [id number] : 1965 Weight: 151lb Account: [id number] Gender: F BP: 100 / 68 Study Date: 08/16/2025 Age: 59 BSA: 1.66m^2 Referring physician: Chato Boone Interpreting physician: Indra Mariscal PERFORMING Indra Mariscal BUCKET PUSHER Christianne Becker ORDERING Cahto Boone REFERRING Chato Boone ATTENDING Liza Forrest MD ADMITTING Liza Forrest MD Procedure:TRANSTHORACIC ECHO (TTE) Order: Accession COMPLETE Number:[id number] Indications: Valve disorders/disease -aortic stenosis (I35.0). PMH: [...] TDI (L) 4.8 cm/sec >=10.0 E/e', lat xioa, TDI (H) 27 <=13 E', med xiao, [...] range. Reviewed and confirmed by Indra Mariscal [id number] Chato Boone MD CV ECHO ORDERABLES Final Result * Influenza A and B, COVID, RSV Combination Assay, MARIELENA (08/16/2025 10:02 AM EST) Influenza A Negative Negative 08/16/2025 11:43 AM EST [facility] Influenza B Negative Negative 08/16/2025 11:43 AM [facility] RSV Negative Negative 08/16/2025 11:43 AM [facility] SARS-CoV-2 Negative Negative,Not Detected 08/16/2025 11:43 AM [facility] Comment:This is an FDA-appro justine amplified nucleic acid assay performed by real- time PCR. Nasopharyngeal Swab NASOPHARYNGEAL STRUCTURE / Unknown 08/16/2025 10:02 AM EST 08/16/2025 10:56 AM EST Chely Andrews DO BODY FLUIDS AND STOOL S ORDERABLES Final Result [facility] [address] * Lactic Acid (08/16/2025 6:58 AM EST) Lactate 0.8 0.5 - 2.2 mmol/L 08/16/2025 7:53 AM EST [facility] Plasma 08/16/2025 6:58 AM EST 08/16/2025 7:20 AM EST Chato Boone MD LAB BLOOD ORDERABLES Giuliana l Result Performing Organization Address [facility] Co de Phone Number [facility] [address] * Blood culture-Peripheral (Blood) (08/15/2025 8:02 PM EST) Only the most recent of2 resultswithin the time period is included. Culture Result No Growth After 5 Days [facility] Blood BLOOD SPECIMEN / Unknown 08/15/2025 8:02 PM EST 08/15/2025 8:23 PM EST Narrative [facility] - 08/20/2025 8:33 PM EST Suboptimal volume of blood received. Interpret results with caution. Chato Boone MD MICROBIOLOGY - GENERAL OR DERABLES Final Result Performing Organization Address City/[facility]/ZIP Co de Phone Number [facility] [address] * (ABNORMAL) Urinalysis - Macroscopic w/ Reflex to Microscopic (08/15/2025 6:42 PM EST) Color, UA Straw Yellow,Straw 08/15/2025 7:03 PM EST [facility] Clarity, UA Clear Clear 08/15/2025 7:03 PM EST [facility] Specific [place], UA >1.035(H) 1.005 - 1.035 08/15/2025 7:03 PM EST [facility] pH, UA 6.5 5.0 - 8.0 08/15/2025 7:03 PM EST [facility] Protein, UA Negative Negative mg/dL 08/15/2025 7:03 PM EST [facility] Glucose, UA Negative Negative mg/dL 08/15/2025 7:03 PM EST [facility] Ketones, UA Negative Negative mg/dL 08/15/2025 7:03 PM EST [facility] Bilirubin, UA Negative Negative 08/15/2025 7:03 PM EST [facility] Blood, UA Negative Negative 08/15/2025 7:03 PM EST [facility] Nitrite, UA Negative Negative 08/15/2025 7:03 PM EST [facility] Urobilinogen, UA <2.0 0.2 - 1.9 mg/dL 08/15/2025 7:03 PM EST [facility] Leukocyte Esterase, UA Negative Negative 08/15/2025 7:03 PM EST [facility] Urine 08/15/2025 6:42 PM EST 08/15/2025 6:54 PM EST Narrative [facility] - 08/15/2025 7:03 PM EST Microscopic testing is not performed when the dipstick is negative for blood, leukocyte, protein and nitrite. Leif Dodd MD URINE ORDERABLES Final Result Performing Organization Address City/[facility]/ZIP Co de Phone Number [facility] [address] * (ABNORMAL) High Sensitivity Troponin (08/15/2025 6:28 PM EST) Only the most recent of2 resultswithin the time period is included. High Sensitivity Troponin 17(H) 0 - 14 ng/L 08/15/2025 7:07 PM EST [facility] Serum 08/15/2025 6:28 PM EST 08/15/2025 6:32 PM EST Leif Dodd MD LAB BLOOD ORDERABLES Final Resul t [facility] [address] * (ABNORMAL) Lactic acid, venous whole blood (08/15/2025 6:28 PM EST) Only the most recent of2 resultswithin the time period is included. Lactate, Endy 2.5(H) 0.5 - 1.6 mmol/L 08/15/2025 6:35 PM EST [facility] Blood, Venous 08/15/2025 6:2 8 PM EST 08/15/2025 6:32 PM EST us Leif Dodd MD LAB BLOOD ORDERABLES Final Resul t Performing Organization Address City/[facility]/ZIP Co de Phone Number [facility] [address] [facility] * APTT, No Anticoagulant (08/15/2025 6:28 PM EST) Only the most recent of2 resultswithin the time period is included. aPTT 26.0 25.5 - 35.0 seconds 08/15/2025 6:49 PM EST [facility] Plasma 08/15/2025 6:28 PM EST 08/15/2025 6:37 PM EST us Leif Dodd MD LAB BLOOD ORDERABLES Final Resul t Performing Organization Address City/[facility] [facility] [place]/ZIP Co de Phone Number [facility] [address] * CT Angio Abd-Pelvis W and or [...] follow-up CT in one year. Imaging Follow-up #[id number]#: Recommend CT of the Abdomen with contrast [...] follow-up CT in one year. Imaging Follow-up #[id number]#: Recommend CT of the Abdomen with contrast [...] HEART: The heart is normal in size. [place] coronary artery atherosclerotic disease with evidence of [...] HEART: The heart is normal in size. [place] coronary artery atheroscleroticdisease with evidence of prior [...] - 1.5 mg/dL 08/15/2025 4:59 PM EST [facility] Bilirubin, Direct 0.1 0.0 - 0.4 mg/dL 08/15/2025 4:59 PM EST [facility] Comment:HEMOLYSIS EVIDENT. D IRECT BILIRUBIN CONCENTRATIONS MAY BE FALSELY DECREASED IN THE PRESENCE OF HEMOLYSIS. INTERPRET WITH CAUTION. AST 77(H) 13 - 39 U/L 08/15/2025 4:59 PM EST [facility] ALT 74(H) 7 - 52 U/L 08/15/2025 4:59 PM EST [facility] Alkaline Phosphatase 127(H) 36 - 125 U/L 08/15/2025 4:59 PM EST [facility] Total Protein 7.3 6.4 - 8.9 g/dL 08/15/2025 4:59 PM EST [facility] Albumin 3.6 3.5 - 5.7 g/dL 08/15/2025 4:59 PM EST [facility] Bilirubin, Indirect 0.5 0.0 - 1.1 mg/dL 08/15/2025 4:59 PM EST [facility] Plasma 08/15/2025 4:21 PM EST 08/15/2025 4:30 PM EST Leif Dodd MD LAB BLOOD ORDERABLES Final Resul t Performing Organization Address City/[facility] [place]/ZIP Co de Phone Number [facility] [address] [facility] * ED HCV Ab Reflex To HCV Quant (08/15/2025 4:21 PM EST) HCV Ab Nonreactive Nonreactive 08/15/2025 6:58 PM EST [facility] Comment:Health Department no tified in accordance with reportable infectious disease guidelines. HCVAB Number 0.03 0.00 - 0.79 S/CO 08/15/2025 6:58 PM EST [facility] Serum 08/15/2025 4:21 PM EST 08/15/2025 5:01 PM EST Leif Dodd MD LAB BLOOD ORDERABLES Final Resul t [facility] [address] [facility] * ABO/Rh (08/15/2025 4:21 PM EST) ABO Grouping AB 08/15/2025 5:29 PM EST [facility] Rh Type Positive 08/15/2025 5:29 PM EST [facility] Blood 08/15/2025 4:21 PM EST 08/15/2025 5:05 PM EST Leif Dodd MD BLOOD BANK TEST ORDERABLES Final Result [facility] [address] [place] [address], [facility] * (ABNORMAL) Differential (08/15/2025 4:21 PM EST) Neutrophils Relative 91.4(H) 40.0 - 80.0 % 08/15/2025 5:15 PM EST [facility] Lymphocytes Relative 7.0(L) 15.0 - 45.0 % 08/15/2025 5:15 PM EST [facility] Monocytes Relative 1.0 0.0 - 12.0 % 08/15/2025 5:15 PM EST [facility] Eosinophils Relative 0.1 0.0 - 8.0 % 08/15/2025 5:15 PM EST [facility] Basophils Relative 0.5 0.0 - 1.0 % 08/15/2025 5:15 PM EST [facility] nRBC 0 0 - 0 /100 WBC 08/15/2025 5:15 PM EST [facility] Neutrophils Absolute 5,758 1,520 - 8,640 /uL 08/15/2025 5:15 PM EST [facility] Lymphocytes Absolute 441(L) 570 - 4,860 /uL 08/15/2025 5:15 PM EST [facility] Monocytes Absolute 63 0 - 1,296 /uL 08/15/2025 5:15 PM EST [facility] Eosinophils Absolute 6 0 - 864 /uL 08/15/2025 5:15 PM EST [facility] Basophils Absolute 32 0 - 108 /uL 08/15/2025 5:15 PM EST [facility] Whole Blood 08/15/2025 4:21 PM EST 08/15/2025 5:01 PM EST Leif Dodd MD LAB BLOOD ORDERABLES Final Resul t [facility] [address] * Antibody Screen (08/15/2025 4:21 PM EST) Pathologist [facility] [place] Antibody Screen Negative 08/15/2025 5:45 PM EST [facility] Blood 08/15/2025 4:21 PM EST 08/15/2025 5:05 PM EST Narrative [facility] - 08/15/2025 5:52 PM EST Testing performed by [facility] Transfusion Service Leif Dodd MD BLOOD BANK TEST ORDERABLES Final Result Performing Organization Address City/[facility]/ZIP Co de Phone Number [facility] [address] * (ABNORMAL) Basic metabolic panel (08/15/2025 4:21 PM EST) Pathologist [facility] [place] Sodium 132(L) 133 - 146 mmol/L 08/15/2025 4:59 PM EST [facility] Potassium 4.6 3.5 - 5.3 mmol/L 08/15/2025 4:59 PM EST [facility] Comment:Hemolysis Present: R esults may be influenced artificially. Recommend recollection as clinically indicated. Chloride 98 98 - 110 mmol/L 08/15/2025 4:59 PM EST [facility] CO2 20(L) 21 - 33 mmol/L 08/15/2025 4:59 PM EST [facility] Comment:High lactate dehydro genase concentrations in patient samples may cause falsely increased bicarbonate results. If markedly elevated LDH is observed or suspected, please assess results in conjunction with patient`s clinical presentation. In cases of discrepant results, consider evaluating CO2 in with a blood gas order. Anion Gap 14 3 - 16 mmol/L 08/15/2025 4:59 PM EST [facility] BUN 6(L) 7 - 25 mg/dL 08/15/2025 4:59 PM EST [facility] Creatinine 0.45(L) 0.60 - 1.30 mg/dL 08/15/2025 4:59 PM EST [facility] Glucose 198(H) 70 - 100 mg/dL 08/15/2025 4:59 PM EST [facility] Calcium 8.6 8.6 - 10.3 mg/dL 08/15/2025 4:59 PM EST [facility] Osmolality, Calculated 277(L) 278 - 305 mOsm/kg 08/15/2025 4:59 PM EST [facility] EGFR >90 08/15/2025 4:59 PM EST [facility] Comment: As of 2021, the estimated [...] 4:21 PM EST 08/15/2025 4:30 PM EST Leif Dodd MD LAB BLOOD ORDERABLES Final Resul t [facility] [address] [place] [id number] * ED ECG 12-Lead (MUSE) (08/15/2025 4:04 PM EST) 08/15/2025 4:04 PM EST Narrative MUSE - 08/16/2025 8:28 AM EST Ventricular Rate: 85 BPM Atrial Rate: 85 BPM P-R Interval: 156 ms QRS Duration: 90 ms QT: 424 ms QTc: 504 ms P Romance: 30 degrees R Romance: -29 degrees T Romance: 26 degrees Diagnosis Line: INTERPRETATION NOT AVAILABLE--ECG READ IN ER Confirmed by PHYSICIAN, ER ([id number]), school photograph editor Crystal Linn ([id number]) on 08/16/2025 8:28:38 AM us Amaris Mary MD ECG ORDERABLES Final Result MUSE from Last 3 Months Insurance [facility] MANAGED MEDICAID [facility] care Address: [place] [address] Advance Directives For more information, please contact: [phone] * Full Code (Latest Code Status on File) Date Activated Date Inactivated Comments 08/15/2025 7:12 PM 08/21/2025 3:54 PM Care Teams Break Out Man Relationship Specialty Start Date End Date Pcp, No No Address PCP - General 08/15/25
--- OUTSIDE RECORDS SUMMARY | 2025-08-30 09:03 | XMS_ITS | Encounter Summary ---
Author Organization [facility] Address [address] [place] [id number] Care Team Providers Care Assessment Analyst Name Role Phone Pcp, No Primary [...] release of HIV test results or diagnoses. [id number] Health Encounter Details Date Type Department Care Team (Late st Contact Info) Description 08/15/2025 Chart Note PROVIDER CARD THORACIC [address] [place] [address] [phone] Rik Jolly IV, MD [address] [place] [address] [address] [place] [address] I received a call from Dr. Carmichael, an emergency room physician at [facility] History Tobacco Use Types Packs/Day Years Used [...] any time in the past 12 m [facility], were you homeless or living in a retirement (including now)? No 08/16/2025 Utilities Answer Date [...] Dr. Carmichael, an emergency room physician at [facility]. Ms. Nellie Alves is a 59-year-old woman who had a transcatheter aortic valve replacement at the [facility] approximately 3 years ago. She presented to [...] to review the CT scan over the [employer] software, and felt with a reasonable degree of certainty (though not with absolute certainty) that what we are seeing was motion artifact (I could see a very similar crescentic defect on the left side of the pulmonary artery exactly mirroring the suspected defect of the ascending aorta). Unfortunately, they do not have the ability to perform a gated CTA of the chest at [facility], and although the patient receives her health care at the [facility], the cardiac surgeons in [place] are not available. We are going to arrange to have her transported to the [facility] emergency department, where I spoke with Dr. Binta Jordan over the phone, and gave her my clinical impressions based on the outside films. Even if the patient has a CTA that is negative for an aortic dissection, she will need to follow-up(with me here at , or locally with her marketing traffic coordinator/cardiac surgeon) for her ascending aortic aneurysm, which is below the threshold for elective surgical repair. Rik Jolly IV, MD, FACS Cardiac Surgeon documented in this encounter Plan of Treatment Not on file documented as of this encounter Visit Diagnoses Not on filedocumented in this encounter Care Teams Assessment Analyst Relationship 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
[2025-08-30 09:21] LABS: PHA INR Fingerstick 2.5 (0.9-1.1)
== END 2025-08-30 09:23 ==
LOC: ACC 08:58
PROVIDERS: PCP Nurse Practitioner Family; Visit Provider Nurse Practitioner Family
DX: Z79.01 Long term (current) use of anticoagulants (principal)
CPT/HCPCS: 85610; G0463